=== PATIENT | female | born 1980 | race Caucasian/White ===

== ENCOUNTER 2022-03-07 10:12 | Outpatient (RCR) | payer MEDICARE, MEDICAID, SELFPAY ==
[2022-03-07 10:26] VITALS: BP 116/74; PULSE 108; TEMP 36.2; BMI 27.4
[2022-03-07 10:56] VITALS: BP 116/74; PULSE 108; TEMP 36.6; BMI 27.4
--- NOTE | 2022-03-07 12:04 | PCM.WC.HP ---
History of Present Illness Date of Service: 03/07/22 Chief Complaint: Follow-up right buttocks wound History of Wound: 42-year-old white female with spina bifida that has history of recurrent pressure ulcers and her ischial area of her buttocks. She has been seeing a surgeon and wound center up in [place] has recently moved to [place] and has become more patient. She has a 6/4 size full thickness ulcer on her right ischium area. No sign of infection skin is intact around wound does have some slough that is easily removed. She has just been doing moistened dressings to the area with a dry dressing over top. She is a type I diabetic on insulin. [facility] Medical History Spina bifida of lumbar spine Allergy/AdvReac Type Severity Reaction Status Date / Time Latex, Natural Rubber Allergy Hives Verified 03/07/22 11:00 ROS Constitutional Constitutional: Reports systems reviewed and no addt'l complaints, except as documented Eyes Eyes: Reports systems reviewed and no addt'l complaints, except as documented ENT HEENT: Reports systems reviewed and no addt'l complaints, except as documented Cardiovascular Cardiovascular: Reports systems reviewed and no addt'l complaints, except as documented Respiratory/Chest Respiratory/Chest: Reports systems reviewed and no addt'l complaints, except as documented Gastrointestinal Gastrointestinal: Reports systems reviewed and no addt'l complaints, except as documented Genitourinary Genitourinary: Reports systems reviewed and no addt'l complaints, except as documented Musculoskeletal Musculoskeletal: Reports systems reviewed and no addt'l complaints, except as documented Integumentary Integumentary: Reports skin ulcer and other Details: Right ischium open wound Neurologic Neurologic: Reports systems reviewed and no addt'l complaints, except as documented Psychiatric Psychiatric: Reports systems reviewed and no addt'l complaints, except as documented Endocrine Endocrinology: Reports systems reviewed and no addt'l complaints, except as documented Hematologic/Lymphatic Hematologic/Lymphatic: Reports systems reviewed and no addt'l complaints, except as documented Allergic/Immunologic Allergic/Immunologic: Reports systems reviewed and no addt'l complaints, except as documented Vital Signs Vital Signs Vital Signs: 03/07/22 10:26 03/07/22 10:56 Temperature 97.2 F L 97.9 F Temperature Source Temporal Temporal Pulse Rate 108 H 108 H Blood Pressure 116/74 116/74 Blood Pressure Mean 88 88 Blood Pressure Source Monitor Monitor Weight Weight: 90 lb Body Mass Index (BMI) 27.4 Physical Exam Const oriented x3 General Appearance: cooperative Exam Limitations: no limitations Resp normal respiratory effort Effort and Inspection: able to speak in complete sentences Auscultation: clear to auscultation bilaterally Cardio regular rate and regular rhythm Palpation: normal PMI Rate: regular rate Rhythm: regular rhythm GI Auscultation: normoactive bowel sounds Palpation: soft and no hepatosplenomegaly external exam normal Skin no rashes or lesions noted Neuro oriented x3 Psych Appearance: grossly normal Speech: normal speech Thought Content: normal thought content Judgement: judgement good Debridement Note Debridement Note Wound debrided: Right buttocks decubitus ulcer Wound Grade/Stage: Stage II Type of Debridement: Excisional debridement Anesthesia Used: 5% Lidocaine Gel Depth: Down to and including healthy tissue Percentage of wound debrided: 100 Instrument Used: 7mm curette Tissue Removed: Fibrin slough Severity: Fat Layer Exposed Amount of bleeding with debridement: Mild Bleeding Controlled with: Gel Foam Patient tolerated procedure: Patient tolerated procedure well Post-Debridement Measurements and Additional Note: Post-Debridement Measurements/Treatment - Nurse 1 - General Ulcer Assessment Start: 03/07/22 10:25 Freq: Status: Active Protocol: KRISTIN Activity Type Activity Date Activity User E-sign Co-sign Detail Recorded Client Recorded Date Recorded By Document 03/07/22 10:26 PL [id number] 03/07/22 11:02 PL Document 03/07/22 10:56 AK [id number] 03/07/22 10:59 AK 03/07/22 03/07/22 10:26 10:56 - Today's Visit Information Type of service Initial Visit Initial Visit Arrival Mode Wheelchair Wheelchair Transfer Assistance Other Transfer Assist (Other) self Patient Identification Verified (Name & Yes Yes ) Patient Requires Transmission-Based No Precautions Safety Precautions NA Height and Weight Height 4 ft 4 ft Weight 90 lb 90 lb Weight in Pounds 90.0 lbs 90.0 lbs Weight Measurement Method Estimated by Estimated by Patient Patient Body Mass Index (BMI) 27.4 27.4 BMI Classification Overweight Overweight BSA - Jimmy 1.13 1.13 Vital Signs Temperature (97.8 F-99.1 F) 97.2 F L 97.9 F Temperature Source Temporal Temporal Pulse Rate (60-100) 108 H 108 H Pulse Location Monitor Monitor Blood Pressure (90/60-120/80) 116/74 116/74 Blood Pressure Mean 88 88 Source Monitor Monitor History Since Last Visit- (Skip if this is Patient's initial visit) Left Footwear No Footwear Right Footwear No Footwear Pain Scale: 0-10 Numeric Is Patient Pain Free? Yes Yes WC - Nurse 1 - General Ulcer Measurement Start: 03/07/22 10:25 Freq: Status: Active Protocol: Activity Type Activity Date Activity User E-sign Co-sign Detail Recorded Client Recorded Date Recorded By Document 03/07/22 10:56 LA [id number] 03/07/22 10:59 AK 03/07/22 10:56 Wound Center Nurse 1 #1 R buttock -Combined with other wound No -Current Size (cm) - Length 1.5 -Current Size (cm) - Width 1.6 -Current Size (cm) - Depth 0.1 -Total Square Cm 2.40 -Photo Taken Yes -Tunneling No -Undermining/Tunneling No -Circular Undermining No -Change in Wound Grade/Stage No -Exudate Amt Medium -Exudate Type Serosanguineous -Wound Margin Distinct, Outline Attached -Granulation Amt Large (67-100%) -Granulation Quality [place] -Slough/Fibrin Yes -Necrosis Amt None Present (0 %) -Structure Exposed N/A -Texture (Cassandra-wound Skin Appearance) No Abnormality, Assessed -Moisture (Cassandra-wound Skin Appearance) No Abnormality, Assessed -Color (Cassandra-wound Skin Appearance) No Abnormality, Assessed -Temperature (Cassandra-wound Skin No Abnormality Appearance) (Pt Warm) -Tenderness on Palpation (Cassandra-wound No Skin Appearance) -Ulcer Cleansing Soap and Water -Foul Odor after Cleansing No -Anesthetic Used 4% Lidocaine Solution WC - Nurse 2 - General Ulcer CM Notes Start: 03/07/22 10:25 Freq: Status: Active Protocol: Activity Type Activity Date Activity User E-sign Co-sign Detail Recorded Client Recorded Date Recorded By Document 03/07/22 11:06 MW [id number] 03/07/22 11:07 MW 03/07/22 11:06 Wound Center Nurse 2 -Time 11:06 -Correct Patient Yes -Correct Side, Site, Position Yes -Correct Procedure Yes -Procedure Performed Yes -Type of Procedure Debridement -Clinical Debridement Subcutaneous -Tissue Removed Subcutaneous -Post Debridement (cm) - Length 2.2 -Post Debridement (cm) - Width 1.4 -Post Debridement (cm) - Depth 0.2 -Total Square (Post) (cm) 3.08 -Area of Debridement (cm) - Length 2.2 -Area of Debridement (cm) - Width 1.4 -Total Square (Area) (cm) 3.08 -Tunneling No -Undermining/Tunneling No -Circular Undermining No -Wound/Ulcer Outcome Not Healed -Ulcer Cleansing Rinsed/ Irrigated with Saline -Foul Odor after Cleansing No -Bioengineered Tissue No -Bleeding Controlled with Pressure -Treatment Response Procedure Tolerated Well -Offloading No -Debridement - Subq, 1st 20sq cm Yes Pain Scale: 0-10 Numeric Is Patient Pain Free? Yes - Nurse 3 - General Ulcer D/C NN Start: 03/07/22 10:25 Freq: Status: Active Protocol: Activity Type Activity Date Activity User E-sign Co-sign Detail Recorded Client Recorded Date Recorded By Document 03/07/22 11:40 AMRITA [id number] 03/07/22 11:41 AMRITA 03/07/22 11:40 Wound Care Nurse 3 #1 R buttock -Ulcer Cleansing Rinsed/ Irrigated with Saline -Foul Odor after Cleansing No -Negative Pressure Wound Therapy N/A -Primary Dressing Applied Mepilex Border, Promogran Silvana Matter -Mepilex Border 1 -Promogran Silvana Matter 1 Pain Scale: 0-10 Numeric Is Patient Pain Free? Yes WC - Visit Discharge Discharge Condition Stable Ambulatory Status Wheelchair Transportation Private Auto Accompanied by aid Medication Reconcilliation completed & Yes provided to patient/care provider Clinical Summary of Care Provided Yes Assessment/Plan Assessment/Plan (1) Nonhealing nonsurgical wound: CODE(S): T14.8XXA - Other injury of unspecified body region, initial encounter (2) Decubitus ulcer of right buttock, stage 2: CODE(S): L89.312 - Pressure ulcer of right buttock, stage 2 PLAN: Wash area with antibacterial soap and apply Silvana to area and foam dressing every day Follow-up in 1 week Offload is much as possible Eat high protein diet
== END 2022-03-10 23:59 | disposition home or self-care (01) ==
LOC: WC 10:12
PROVIDERS: PCP Internal Medicine; Visit Provider Nurse Practitioner
DX: L89.312 Pressure ulcer of right buttock, stage 2 (principal); E10.622 Type 1 diabetes mellitus with other skin ulcer; Q05.7 Lumbar spina bifida without hydrocephalus; Z79.4 Long term (current) use of insulin
CPT/HCPCS: 11042; 99203; G0463

== ENCOUNTER → 2022-03-27 | Outpatient (CLI) | payer MEDICARE, MEDICAID, SELFPAY ==
[2022-03-27 13:15] LABS: Hemoglobin A1c 7.8 % (3.8-5.6)
[2022-03-27 13:35] LABS: Prealbumin 7.8 mg/dL (20.0-40.0)
== END | disposition home or self-care (01) ==
LOC: LAB 12:06
PROVIDERS: PCP Internal Medicine; Referring Provider Nurse Practitioner; Visit Provider Nurse Practitioner
DX: E10.622 Type 1 diabetes mellitus with other skin ulcer (principal); L98.419 Non-pressure chronic ulcer of buttock with unspecified severity
CPT/HCPCS: 36415; 83036; 84134

== ENCOUNTER 2022-04-05 10:45 | Outpatient (RCR) | payer MEDICARE, MEDICAID, SELFPAY ==
[2022-03-11 00:40] VITALS: BP 116/74; PULSE 108; TEMP 36.6; BMI 27.4
[2022-03-21 10:22] VITALS: BP 117/63; PULSE 101; RESP 16; TEMP 36.3; BMI 27.4
--- NOTE | 2022-03-21 11:10 | PCM.WC.PN ---
History of Present Illness Date of Service: 03/21/22 Chief Complaint: Follow-up right buttocks wound History of Wound: 42-year-old white female with spina bifida that has history of recurrent pressure ulcers and her ischial area of her buttocks. She has been seeing a surgeon and wound center up in [place] has recently moved to [place] and has become more patient. She has a 6/4 size full thickness ulcer on her right ischium area. No sign of infection skin is intact around wound does have some slough that is easily removed. She has just been doing moistened dressings to the area with a dry dressing over top. She is a type I diabetic on insulin. Progress of Wound: Measurements are up showing smaller. Patient qualifies for epi fix. We will apply for that in the meantime she will continue same dressing changes no sign of infection no swelling or redness. Subjective Subjective Family is pleased with outcome so far Objective Data Objective Data Patient agreed to using epi fix for next week we will continue the same treatment for this day. No sign of infection no odor. We will add labs for the epi fix prealbumin and a A1c for her diabetes Vital Signs: Vital Signs Temp Pulse Resp BP O2 Del Method 97.4 F L 101 H 16 117/63 Room Air 03/21/22 10:22 03/21/22 10:22 03/21/22 10:22 03/21/22 10:22 03/21/22 10:22 Oxygen Delivery Method Room Air Weight: 90 lb Body Mass Index (BMI) 27.4 Lab / Micro Data Attestation: I reviewed the patient's lab results. Physical Exam Const oriented x3 General Appearance: cooperative Exam Limitations: no limitations Resp normal respiratory effort Effort and Inspection: able to speak in complete sentences Auscultation: clear to auscultation bilaterally Cardio regular rate and regular rhythm Palpation: normal PMI Rate: regular rate Rhythm: regular rhythm GI Auscultation: normoactive bowel sounds Palpation: soft and no hepatosplenomegaly external exam normal Skin no rashes or lesions noted Neuro oriented x3 Psych Appearance: grossly normal Speech: normal speech Thought Content: normal thought content Judgement: judgement good Debridement Note Debridement Note Wound debrided: Right ischium decubitus ulcer Wound Grade/Stage: Stage II Type of Debridement: Excisional debridement Anesthesia Used: 5% Lidocaine Gel Depth: in the subcutaneous layer Percentage of wound debrided: 100 Instrument Used: 5mm curette Tissue Removed: Fibrin Severity: Fat Layer Exposed Amount of bleeding with debridement: Mild Bleeding Controlled with: Compression and gauze Patient tolerated procedure: Patient tolerated procedure well Post-Debridement Measurements and Additional Note: Post-Debridement Measurements/Treatment - Nurse 1 - General Ulcer Assessment Start: 03/21/22 10:22 Freq: Status: Active Protocol: KRISTIN Activity Type Activity Date Activity User E-sign Co-sign Detail Recorded Client Recorded Date Recorded By Document 03/21/22 10:22 [facility] [id number] 03/21/22 10:28 [facility] 03/21/22 10:22 WC - Today's Visit Information Type of service Follow-up Visit (Physician/EMPLOYMENT APPEALS EXAMINER ) Arrival Mode Wheelchair Transfer Assistance None Patient Identification Verified (Name & Yes ) Patient Requires Transmission-Based No Precautions Height and Weight Body Mass Index (BMI) 27.4 BMI Classification Overweight Vital Signs Temperature (97.8 F-99.1 F) 97.4 F L Temperature Source Temporal Pulse Rate (60-100) 101 H Pulse Location Monitor Respiratory Rate (12-18) 16 Respiratory rate source Observation Oxygen Delivery Method Room Air Blood Pressure (90/60-120/80) 117/63 Blood Pressure Mean (mm Hg) 81 Source Monitor Position Sitting History Since Last Visit- (Skip if this is Patient's initial visit) Have you changed medications since your No last visit? Had a fall/change in ADL's that may No increase risk of falls Signs or symptoms of abuse and/or No neglect since last visit Have you been in the hospital since your No last visit? Has dressing in place as prescribed Yes Has compression in place as prescribed N/A Has offloadiing in place as prescribed N/A Experienced any changes in pain level or No management Left Footwear Regular Shoe Right Footwear Regular Shoe Pain Scale: 0-10 Numeric Is Patient Pain Free? Yes [facility] Nurse 1 - General Ulcer Measurement Start: 03/21/22 10:22 Freq: Status: Active Protocol: Activity Type Activity Date Activity User E-sign Co-sign Detail Recorded Client Recorded Date Recorded By Document 03/21/22 10:22 [facility] [id number] 03/21/22 10:28 [facility] 03/21/22 10:22 Wound Center Nurse 1 #1 R buttock -Combined with other wound No -Current Size (cm) - Length 2 -Current Size (cm) - Width 1.8 -Current Size (cm) - Depth 0.1 -Total Square Cm 3.6 -Date of Last Picture (Recall this 03/21/22 field) -Photo Taken Yes -Epithelialization Small 1-33% -Tunneling No -Undermining/Tunneling No -Circular Undermining No -Exudate Amt Medium -Exudate Type Serosanguineous -Wound Margin Flat & Intact -Granulation Amt Medium (34-66%) -Granulation Quality [place] -Necrosis Amt Medium (34-66%) -Necrotic Tissue Type Adherent Slough -Texture (Cassandra-wound Skin Appearance) Assessed, Scarring -Moisture (Cassandra-wound Skin Appearance) Assessed -Color (Cassandra-wound Skin Appearance) Assessed -Temperature (Cassandra-wound Skin No Abnormality Appearance) (Pt Warm) -Ulcer Cleansing Rinsed/ Irrigated with Saline -Foul Odor after Cleansing No -Anesthetic Used 5% Lidocaine Gel WC - Nurse 2 - General Ulcer CM Notes Start: 03/21/22 10:22 Freq: Status: Active Protocol: Activity Type Activity Date Activity User E-sign Co-sign Detail Recorded Client Recorded Date Recorded By Document 03/21/22 10:38 MW [id number] 03/21/22 10:42 MW 03/21/22 10:38 Wound Center Nurse 2 -Time 10:38 -Correct Patient Yes -Correct Side, Site, Position Yes -Correct Procedure Yes -Procedure Performed Yes -Type of Procedure Incision & Drainage -Clinical Debridement Subcutaneous -Tissue Removed Subcutaneous -Post Debridement (cm) - Length 2.0 -Post Debridement (cm) - Width 1.3 -Post Debridement (cm) - Depth 0.2 -Total Square (Post) (cm) 2.60 -Area of Debridement (cm) - Length 2.0 -Area of Debridement (cm) - Width 1.3 -Total Square (Area) (cm) 2.60 -Tunneling No -Undermining/Tunneling No -Circular Undermining No -Wound/Ulcer Outcome Not Healed -Ulcer Cleansing Rinsed/ Irrigated with Saline -Foul Odor after Cleansing No -Bioengineered Tissue No -Bleeding Controlled with Pressure -Treatment Response Procedure Tolerated Well -Offloading No -Debridement - Subq, 1st 20sq cm Yes Pain Scale: 0-10 Numeric Is Patient Pain Free? Yes Assessment/Plan Assessment/Plan (1) Nonhealing nonsurgical wound: CODE(S): T14.8XXA - Other injury of unspecified body region, initial encounter (2) Decubitus ulcer of right buttock, stage 2: CODE(S): L89.312 - Pressure ulcer of right buttock, stage 2 PLAN: Wash area with antibacterial soap and apply Silvana to area and foam dressing every day Follow-up in 1 week Offload is much as possible Eat high protein diet Applying for epi fix Prealbumin and A1c to be drawn
[2022-03-28 11:14] VITALS: BP 144/73; PULSE 114; TEMP 35.9; BMI 27.4
[2022-04-05 11:02] VITALS: BP 128/62; PULSE 111; RESP 20; TEMP 36.3; BMI 27.4
--- NOTE | 2022-04-05 12:59 | PCM.WC.HP ---
History of Present Illness Date of Service: 04/05/22 Chief Complaint: Follow-up right buttocks wound History of Wound: Ms. Walker is a very pleasant 42-year-old with a history of spina bifida who is being seen by me today as a courtesy. History of recurrent decubitus ulcers. Has been following up here for right buttock ulcer which opened up months ago. Prior to her initial visit here, had been following up at [facility] and had some point had a flap closure. Moved here to be closer with family. Has had 1 application of epi fix so far however unfortunately this did not stay on. History of insulin-dependent diabetes mellitus. She states that her blood readings are all over the place. She reports compliance with her medications. She feels well at this time and denies chills, fever, nausea, vomiting or change in bowel habit. [facility] Medical History (Updated 04/05/22 @ 17:[address] Cosmo Smith MD) Buttock wound Cancer Decubitus ulcer of right buttock, stage 3 High cholesterol Insulin dependent diabetes mellitus Spina bifida of lumbar spine Home Medications insulin aspart U-100 100 unit/mL subcutaneous solution (Novolog U-100 Insulin aspart) 1 sliding scale dose subcut USEASDIRECTD 03/13/22 [History Last Taken Unknown] insulin glargine 100 unit/mL subcutaneous cartridge 20 unit subcut QPM 03/13/22 [History Last Taken Unknown] Allergy/AdvReac Type Severity Reaction Status Date / Time Latex, Natural Rubber Allergy Hives Verified 03/13/22 14:04 Family History (Updated 03/13/22 @ 14:11 by Nanette Saravia) Other Cancer Diabetes FH: defects Social History (Updated 03/13/22 @ 14:10 by Nanette Saravia) Smoking Status: Never smoker alcohol intake: current alcohol intake frequency: holidays/special occasions only Alcohol type: wine ROS Constitutional Constitutional: Denies fatigue, fever(s), frequent falls, headache(s), increased appetite, lethargy or malaise Eyes Eyes: Denies change in eye color, change in vision, discharge from eye(s), dry eyes, excessive blinking or exophthalmos ENT HEENT: Denies hoarseness, lip swelling, loss taste/smell, mouth pain, mucositis, nasal congestion, nasal discharge, nasal obstruction or nasal trauma Cardiovascular Cardiovascular: Denies diaphoresis, dizziness, dyspnea, dyspnea at rest, dyspnea on exertion or erythema on extremities Respiratory/Chest Respiratory/Chest: Denies difficulty clearing secretions, dyspnea on exertion, excessive phlegm production, hemoptysis, hoarseness, inability to speak or mouth breathing Gastrointestinal Gastrointestinal: Denies chewing difficulty, cramping, dry heaves, dyspepsia, early satiety, excessive flatus or rectal bleeding Genitourinary Genitourinary: Denies flank pain, genital bruising, hematuria, itching, low back pain or oliguria Musculoskeletal Musculoskeletal: Reports difficulty walking; Denies extremity pain, joint swelling, neck pain, tingling or tremors Integumentary Integumentary: Reports skin ulcer; Denies non-healing lesions, photosensitivity, pruritus, rash, skin pain or skin swelling Neurologic Neurologic: Denies burning sensations, confusion, convulsions, disequilibrium, dizziness, focal weakness, frequent falls or headache(s) Psychiatric Psychiatric: Denies hallucinations, homicidal ideation, hopelessness, irritability, memory loss, suicidal thoughts, tactile hallucinations or visual hallucinations Endocrine Endocrinology: Denies excessive sweating, fatigue, flushing, heat intolerance, increase in ring/shoe/hat size, palpitations, polydipsia or polyphagia Allergic/Immunologic Allergic/Immunologic: Denies itchy eyes, lip swelling, seasonal rhinorrhea, throat swelling, eczemia or wheezing Vital Signs Vital Signs Vital Signs: 04/05/22 11:02 Temperature 97.3 F L Temperature Source Temporal Pulse Rate 111 H Respiratory Rate 20 H Blood Pressure 128/62 H Blood Pressure Mean 84 Blood Pressure Source Monitor Weight Weight: 90 lb Body Mass Index (BMI) 27.4 Physical Exam Const alert, oriented x3 and no apparent distress General Appearance: cooperative and well kempt HEENT normocephalic, head/scalp atraumatic and hearing grossly normal bilaterally Eyes General Eye: normal appearance of both eyes Neck full ROM and supple General: normal visual inspection Resp normal respiratory effort Effort and Inspection: able to speak in complete sentences Extremity no clubbing, cyanosis or edema Skin Wounds: wounds noted Neuro oriented x3 and CN's II-XII intact bilaterally Psych mental status grossly normal, thought process normal, cooperative and affect normal Appearance: grossly normal Debridement Note Debridement Note Wound debrided: Right Buttock Type of Debridement: Excisional debridement Anesthesia Used: 4% Lidocaine Solution Depth: Down to and including healthy tissue and in the subcutaneous layer Percentage of wound debrided: 100 Instrument Used: 5mm curette Tissue Removed: Slough and devitalized tissue Severity: Fat Layer Exposed Amount of bleeding with debridement: Mild Bleeding Controlled with: Pressure Patient tolerated procedure: Patient tolerated procedure well Post-Debridement Measurements and Additional Note: Post-Debridement Measurements/Treatment - Nurse 1 - General Ulcer Assessment Start: 03/21/22 10:22 Freq: Status: Active Protocol: KRISTIN Activity Type Activity Date Activity User E-sign Co-sign Detail Recorded Client Recorded Date Recorded By Document 03/21/22 10:22 [facility] [id number] 03/21/22 10:28 BM Document 03/28/22 11:14 AK [id number] 03/28/22 11:16 AK Document 04/05/22 11:02 DL [id number] 04/05/22 11:11 DL 03/21/22 03/28/22 04/05/22 10:22 11:14 11:02 - Today's Visit Information Type of service Follow-up Visit Follow-up Visit Follow-up Visit (Physician/ELECTROMECHANICAL EQUIPMENT ASSEMBLER (Physician/ELECTROMECHANICAL EQUIPMENT ASSEMBLER (Physician/ELECTROMECHANICAL EQUIPMENT ASSEMBLER ) ) ) Arrival Mode Wheelchair Wheelchair Wheelchair Transfer Assistance None None Transfer Assist (Other) x2 Patient Identification Verified (Name & Yes Yes Yes ) Patient Requires Transmission-Based No No No Precautions Finger Stick Blood Sugar(mg/dl) (if 400 indicated): Blood Sugar Stated by Patient Height and Weight Body Mass Index (BMI) 27.4 27.4 27.4 BMI Classification Overweight Overweight Overweight Vital Signs Temperature (97.8 F-99.1 F) 97.4 F L 96.7 F L 97.3 F L Temperature Source Temporal Temporal Temporal Pulse Rate (60-100) 101 H 114 H 111 H Pulse Location Monitor Monitor Monitor Respiratory Rate (12-18) 16 20 H Respiratory rate source Observation Observation Oxygen Delivery Method Room Air Blood Pressure (90/60-120/80) 117/63 144/73 H 128/62 H Blood Pressure Mean 81 96 84 Source Monitor Monitor Monitor Position Sitting History Since Last Visit- (Skip if this is Patient's initial visit) Have you changed medications since your No No No last visit? Any new allergies or adverse reactions No No Had a fall/change in ADL's that may No No No increase risk of falls Signs or symptoms of abuse and/or No No No neglect since last visit Have you been in the hospital since your No No No last visit? Has dressing in place as prescribed Yes Yes Yes Has compression in place as prescribed N/A N/A N/A Has offloadiing in place as prescribed N/A Yes Yes Experienced any changes in pain level or No No No management Left Footwear Regular Shoe Regular Shoe Right Footwear Regular Shoe Regular Shoe Pain Scale: 0-10 Numeric Is Patient Pain Free? Yes Yes Yes WC - Nurse 1 - General Ulcer Measurement Start: 03/21/22 10:22 Freq: Status: Active Protocol: Activity Type Activity Date Activity User E-sign Co-sign Detail Recorded Client Recorded Date Recorded By Document 03/21/22 10:22 [facility] [id number] 03/21/22 10:28 [facility] Document 03/28/22 11:14 AK [id number] 03/28/22 11:16 AK Document 04/05/22 11:02 DL [id number] 04/05/22 11:11 DL 03/21/22 03/28/22 04/05/22 10:22 11:14 11:02 Wound Center Nurse 1 #1 R buttock -Combined with other wound No No -Current Size (cm) - Length 2 1.5 3.2 -Current Size (cm) - Width 1.8 1.5 2 -Current Size (cm) - Depth 0.1 0.1 0.3 -Total Square Cm 3.6 2.25 6.4 -Date of Last Picture (Recall this 03/21/22 field) -Photo Taken Yes No No -Epithelialization Small 1-33% -Tunneling No No -Undermining/Tunneling No No -Circular Undermining No No -Change in Wound Grade/Stage No -Exudate Amt Medium Medium -Exudate Type Serosanguineous Serosanguineous Serosanguineous -Wound Margin Flat & Intact Distinct, Distinct, Outline Outline Attached Attached -Granulation Amt Medium (34-66%) Medium (34-66%) Small (1-33%) -Granulation Quality Milnor Milnor Milnor -Slough/Fibrin Yes -Necrosis Amt Medium (34-66%) Medium (34-66%) Large (67-100%) -Necrotic Tissue Type Adherent Slough Adherent Slough Adherent Slough -Structure Exposed N/A N/A -Texture (Cassandra-wound Skin Appearance) Assessed, No Abnormality, Scarring Scarring Assessed -Moisture (Cassandra-wound Skin Appearance) Assessed No Abnormality, No Abnormality Assessed -Color (Cassandra-wound Skin Appearance) Assessed No Abnormality, No Abnormality Assessed -Temperature (Cassandra-wound Skin No Abnormality No Abnormality No Abnormality Appearance) (Pt Warm) (Pt Warm) (Pt Warm) -Tenderness on Palpation (Cassandra-wound No No Skin Appearance) -Ulcer Cleansing Rinsed/ Rinsed/ Rinsed/ Irrigated with Irrigated with Irrigated with Saline Saline Saline -Foul Odor after Cleansing No No No -Anesthetic Used 5% Lidocaine 5% Lidocaine 5% Lidocaine Gel Gel Gel WC - Nurse 2 - General Ulcer CM Notes Start: 03/21/22 10:22 Freq: Status: Active Protocol: Activity Type Activity Date Activity User E-sign Co-sign Detail Recorded Client Recorded Date Recorded By Document 03/21/22 10:38 MW [id number] 03/21/22 10:42 MW Document 03/28/22 11:20 MW [id number] 03/28/22 11:33 MW Document 04/05/22 11:29 MW [id number] 04/05/22 11:43 MW 03/21/22 03/28/22 04/05/22 10:38 11:20 11:29 Wound Center Nurse 2 #1 R buttock -Time 10:38 11:21 11:30 -Correct Patient Yes Yes Yes -Correct Side, Site, Position Yes Yes Yes -Correct Procedure Yes Yes Yes -Procedure Performed Yes Yes Yes -Type of Procedure Debridement -Type of Procedure Incision & Debridement Drainage -Clinical Debridement Subcutaneous Subcutaneous Subcutaneous -Tissue Removed Subcutaneous Subcutaneous Subcutaneous -Post Debridement (cm) - Length 2.0 2.0 2.6 -Post Debridement (cm) - Width 1.3 2.0 2.0 -Post Debridement (cm) - Depth 0.2 0.2 0.2 -Total Square (Post) (cm) 2.60 4.00 5.20 -Area of Debridement (cm) - Length 2.0 2.0 2.6 -Area of Debridement (cm) - Width 1.3 2.0 2.0 -Total Square (Area) (cm) 2.60 4.00 5.20 -Tunneling No No No -Undermining/Tunneling No No No -Circular Undermining No No No -Wound/Ulcer Outcome Not Healed Not Healed Not Healed -Ulcer Cleansing Rinsed/ Rinsed/ Rinsed/ Irrigated with Irrigated with Irrigated with Saline Saline Saline -Foul Odor after Cleansing No No No -Bioengineered Tissue No Yes Yes -Type of Bioengineered Tissue Epifix -Type of Bioengineered Tissue Epifix -Expiration Date 11/09/26 11/09/26 -Product Lot Number [id number] -Percent Used 100 100 -Lot number of Saline Used [id number] -Bleeding Controlled with Pressure Pressure Pressure -Treatment Response Procedure Procedure Procedure Tolerated Well Tolerated Well Tolerated Well -Offloading No No No -Debridement - Subq, 1st 20sq cm Yes No No -Apply Skin Sub - 1st 25 sq cm - Legs 1 1 -Epifix (per sq cm) 4 4 Pain Scale: 0-10 Numeric Is Patient Pain Free? Yes Yes Yes - Nurse 3 - General Ulcer D/C NN Start: 03/21/22 10:22 Freq: Status: Active Protocol: Activity Type Activity Date Activity User E-sign Co-sign Detail Recorded Client Recorded Date Recorded By Document 03/21/22 11:10 CO [id number] 03/21/22 11:11 AK Document 03/28/22 11:54 MW [id number] 03/28/22 11:55 MW Document 04/05/22 11:56 [facility] [id number] 04/05/22 11:56 [facility] 03/21/22 03/28/22 04/05/22 11:10 11:54 11:56 Wound Care Center Nurse 3 #1 R buttock -Ulcer Cleansing Rinsed/ Not Cleansed Irrigated with Saline -Foul Odor after Cleansing No -Negative Pressure Wound Therapy N/A -Primary Dressing Applied Mepilex Border, Mepilex Border Promogran Silvana Matter -Other Dressing epifix, abd -Mepilex Border 1 1 -Promogran Silvana Matter 1 Treatment Response Procedure Tolerated Well Pain Scale: 0-10 Numeric Is Patient Pain Free? Yes Yes Yes Teaching: Wound Center Dressing Your Wound -Person Taught Patient -Teaching Method Discussion, Demonstration -Response to teaching Verbalize understanding WC - Visit Discharge Discharge Condition Stable Stable Stable Ambulatory Status Wheelchair Ambulatory Wheelchair Transportation Private Auto Private Auto Private Auto Accompanied by aid self 2 caregivers Medication Reconcilliation completed & Yes No provided to patient/care provider Clinical Summary of Care Provided Yes Yes Charges/Coding Visit Charges Office Visits / Consults: 66542 OV L3 New Procedures Integumentary 150xxx-152xx: [id number] Skin sub graft face/nk/hf/g Assessment/Plan Assessment/Plan (1) Decubitus ulcer of right buttock, stage 3: CODE(S): L89.313 - Pressure ulcer of right buttock, stage 3 (2) Insulin dependent diabetes mellitus: (3) Spina bifida of lumbar spine: CODE(S): Q05.7 - Lumbar spina bifida without hydrocephalus PLAN: Plan Debridement done as documented above, procedure was well-tolerated. Second application of epi fix done using 100% of product. Moistened with saline, covered with wound veil and secured with Steri-Strips. Promogran also applied. May change outer dressing if soiled or soaked. Continue increased protein intake, optimal diabetes control and offloading. Patient and caregiver voiced understanding. Their questions were answered and they were advised to call with any further questions or concerns. Follow-up as previously scheduled next Saturday. This note was generated with [employer] dictation software. It may contain incorrect words, spelling, and punctuation that were not noted in checking the note before signing.
== END 2022-04-10 23:59 | disposition home or self-care (01) ==
LOC: WC 10:45
PROVIDERS: PCP Internal Medicine; Visit Provider Nurse Practitioner
DX: L89.313 Pressure ulcer of right buttock, stage 3 (principal); E10.622 Type 1 diabetes mellitus with other skin ulcer; Q05.7 Lumbar spina bifida without hydrocephalus; Z79.4 Long term (current) use of insulin; E78.00 Pure hypercholesterolemia, unspecified
CPT/HCPCS: 11042; 15271; Q4186

== ENCOUNTER → 2022-04-16 | Outpatient (CLI) | payer MEDICARE, MEDICAID, SELFPAY ==
[2022-04-16 15:22] LABS: Absolute Lymphocyte Count 1.33 X10^3/uL (0.83-4.51); Absolute Neutrophil Count 15.3 X10^3/uL (2.0-7.7); Basophil# 0.07 X10^3/uL; Basophil% 0.4 % (0-1); Eosinophil# 0.09 X10^3/uL; Eosinophils% 0.5 % (0-5); Hematocrit 33.4 % (37-47); Hemoglobin 9.8 g/dL (12.0-15.0); Lymphocyte # 1.33 X10^3/ul (0.83-4.51); Lymphocyte % 7.2 % (19-41); Mean Corp Hgb Conc 29.3 g/dL (32-36); Mean Corpuscular Hgb 24.7 pg (27.0-32.0); Mean Corpuscular Volume 84.3 fL (81-99); Mean Platelet Vol. 9.3 fl (6.2-12.0); Monocyte% 7.6 % (0-10); NRBC Flagged by Analyzer 0 % (0-5); Neutrophil # 15.33 X10^3/uL (2.7-7.7); Neutrophil % 83.5 % (47-70); Platelet Count 412 K/mm3 (150-450); RBC Distribution Width CV 14.7 % (11.6-14.6); RBC Distribution Width SD 45.3 fl (35.1-43.9); Red Blood Count 3.96 M/mm3 (4.2-5.4); White Blood Count 18.4 K/mm3 (4.4-11.0)
[2022-04-16 15:49] LABS: ALB/GLOB Ratio 0.5 RATIO (0.9-2.4); AST(SGOT) 14 U/L (15-37); Alanine Aminotransfer ALT/SGPT 17 U/L (13-56); Albumin, Serum 2.6 g/dL (3.2-5.0); Alkaline Phosphatase 137 U/L (45-117); Anion Gap 7 (5-15); BUN 23 mg/dL (7-18); BUN/Creat Ratio 25.4 RATIO (10-20); Calcium,Total 9.1 mg/dL (8.5-10.1); Chloride 106 mmol/L (98-107); Cholesterol 160 mg/dL (200); EST Glomerular Filtration Rate 72 mL/min (>60); Est Glom Filt Rate - Afr Amer 87 mL/min (>60); Globulin 5.3 g/dL (2.2-4.2); Glucose 90 mg/dL (74-106); High Density Lipoprotein 32 mg/dL; Potassium 4.2 mmol/L (3.5-5.1); Protein, Total 7.9 g/dL (6.4-8.2); Sodium Level 140 mmol/L (136-145); T4 Free Direct 1.03 ng/dL (0.76-1.46); Thyroid Stim Hormone (TSH) 2.53 uIU/mL (0.358-3.74); Triglycerides 132 mg/dL; Very Low Density Lipoprotein 26 mg/dL (5-40)
== END | disposition home or self-care (01) ==
LOC: BIMLAB 13:54
PROVIDERS: PCP Internal Medicine; Referring Provider Internal Medicine; Visit Provider Internal Medicine
DX: E10.9 Type 1 diabetes mellitus without complications (principal)
CPT/HCPCS: 36415; 80053; 80061; 84439; 84443; 85025

== ENCOUNTER 2022-05-02 11:15 | Outpatient (RCR) | payer MEDICARE, MEDICAID, SELFPAY ==
[2022-04-11 00:37] VITALS: BP 128/62; PULSE 111; RESP 20; TEMP 36.3; BMI 27.4
[2022-04-11 11:09] VITALS: BP 118/54; PULSE 100; RESP 16; TEMP 35.9; BMI 27.4
--- NOTE | 2022-04-11 12:41 | PN.PCM_ITS ---
History of Present Illness Date of Service: 04/11/22 Chief Complaint: Follow-up right buttocks wound History of Wound: Ms. Walker is a very pleasant 42-year-old with a history of spina bifida with history of recurrent decubitus ulcers. Has been following up here for right buttock ulcer which opened up months ago. Prior to her initial visit here, had been following up at [place] and had some point had a flap closure. Moved here to be closer with family. Has had 1 application of epi fix so far however unfortunately this did not stay on. History of insulin- dependent diabetes mellitus. She states that her blood readings are all over the place. She reports compliance with her medications. She feels well at this time and denies chills, fever, nausea, vomiting or change in bowel habit. Progress of Wound: The wound is now moving it might be getting slightly bigger we used epi #3 and todd cultures before putting it on after debridement. We may need to go back to products and then use the epi fix at the very end for closure. It appears to be too close to the anus and she has no control of her bowels. The other one would be to put a rectal tube in her to control the stool from touching dressings. Subjective Subjective Patient is just worried that it can get worse and she is going to end up back in the hospital Objective Data Objective Data Again not sure if the EpiFix is the way to go at this point we will cultures were pending to see if she needs to be on antibiotics first which I cannot b elieve she will not be since she has stool right next to her wound site. Vital Signs: Vital Signs Temp Pulse Resp BP O2 Del Method 96.6 F L 100 16 118/54 L Room Air 04/11/22 11:09 04/11/22 11:09 04/11/22 11:09 04/11/22 11:09 04/11/22 11:09 Oxygen Delivery Method Room Air Weight: 90 lb Body Mass Index (BMI) 27.4 Lab / Micro Data Attestation: I reviewed the patient's lab results. Physical Exam Const oriented x3 General Appearance: cooperative Exam Limitations: no limitations Resp normal respiratory effort Effort and Inspection: able to speak in complete sentences Auscultation: clear to auscultation bilaterally Cardio regular rate and regular rhythm Palpation: normal PMI Rate: regular rate Rhythm: regular rhythm GI Auscultation: normoactive bowel sounds Palpation: soft and no hepatosplenomegaly external exam normal Skin no rashes or lesions noted Neuro oriented x3 Psych Appearance: grossly normal Speech: normal speech Thought Content: normal thought content Judgement: judgement good Debridement Note Debridement Note Wound debrided: Right buttocks decubitus ulcer Laterality: Right Wound Grade/Stage: Stage II Type of Debridement: Excisional debridement Anesthesia Used: 5% Lidocaine Gel Depth: in the subcutaneous layer Percentage of wound debrided: 100 Instrument Used: 5mm curette Tissue Removed: Fibrin and some slough Severity: Fat Layer Exposed Amount of bleeding with debridement: Mild Bleeding Controlled with: Compression and gauze Patient tolerated procedure: Patient tolerated procedure well Post-Debridement Measurements and Additional Note: Post-Debridement Measurements/Treatment - Nurse 1 - General Ulcer Assessment Start: 04/11/22 11:09 Freq: Status: Active Protocol: VIJAYA.JOVANY Activity Type Activity Date Activity User E-sign Co-sign Detail Recorded Client Recorded Date Recorded By Document 04/11/22 11:09 [facility] [id number] 04/11/22 11:15 [facility] 04/11/22 11:09 - Today's Visit Information Type of service Follow-up Visit (Physician/[employer] FRAME CARPENTER ) Arrival Mode Wheelchair Transfer Assistance Other Transfer Assist (Other) 1 Accompanied by caregivers Patient Identification Verified (Name & Yes ) Patient Requires Transmission-Based No Precautions Height and Weight Body Mass Index (BMI) 27.4 BMI Classification Overweight Vital Signs Temperature (97.8 F-99.1 F) 96.6 F L Temperature Source Temporal Pulse Rate (60-100) 100 Pulse Location Monitor Respiratory Rate (12-18) 16 Respiratory rate source Observation Oxygen Delivery Method Room Air Blood Pressure (90/60-120/80) 118/54 L Blood Pressure Mean (mm Hg) 75 Source Monitor Position Sitting Blood Pressure Location Left Arm History Since Last Visit- (Skip if this is Patient's initial visit) Have you changed medications since your No last visit? Any new allergies or adverse reactions No Had a fall/change in ADL's that may No increase risk of falls Signs or symptoms of abuse and/or No neglect since last visit Have you been in the hospital since your No last visit? Has dressing in place as prescribed Yes Has compression in place as prescribed N/A Has offloadiing in place as prescribed N/A Experienced any changes in pain level or No management Left Footwear Regular Shoe Right Footwear Regular Shoe Pain Scale: 0-10 Numeric Is Patient Pain Free? Yes - Nurse 1 - General Ulcer Measurement Start: 04/11/22 11:09 Freq: Status: Active Protocol: Activity Type Activity Date Activity User E-sign Co-sign Detail Recorded Client Recorded Date Recorded By Document 04/11/22 11:09 [facility] [id number] 04/11/22 11:15 [facility] 04/11/22 11:09 Wound Center Nurse 1 #1 R buttock -Combined with other wound No -Current Size (cm) - Length 2.5 -Current Size (cm) - Width 2 -Current Size (cm) - Depth 0.9 -Total Square Cm 5.0 -Date of Last Picture (Recall this 04/11/22 field) -Photo Taken Yes -Epithelialization None Present -Tunneling No -Undermining/Tunneling No -Exudate Amt Medium -Exudate Type Serosanguineous -Wound Margin Distinct, Outline Attached -Texture (Cassandra-wound Skin Appearance) Assessed, Scarring -Moisture (Cassandra-wound Skin Appearance) Assessed -Color (Cassandra-wound Skin Appearance) Assessed -Temperature (Cassandra-wound Skin No Abnormality Appearance) (Pt Warm) -Tenderness on Palpation (Cassandra-wound No Skin Appearance) -Ulcer Cleansing Soap and Water -Foul Odor after Cleansing No -Anesthetic Used 5% Lidocaine Gel - Nurse 2 - General Ulcer CM Notes Start: 04/11/22 11:09 Freq: Status: Active Protocol: Activity Type Activity Date Activity User E-sign Co-sign Detail Recorded Client Recorded Date Recorded By Document 04/11/22 11:23 [id number] 04/11/22 11:42 MW 04/11/22 11:23 Wound Center Nurse 2 -Time 11:37 -Correct Patient Yes -Correct Side, Site, Position Yes -Correct Procedure Yes -Procedure Performed Yes -Type of Procedure Debridement -Clinical Debridement Subcutaneous -Tissue Removed Subcutaneous -Post Debridement (cm) - Length 2.5 -Post Debridement (cm) - Width 3.3 -Post Debridement (cm) - Depth 0.3 -Total Square (Post) (cm) 8.25 -Area of Debridement (cm) - Length 2.5 -Area of Debridement (cm) - Width 3.3 -Total Square (Area) (cm) 8.25 -Tunneling No -Undermining/Tunneling No -Circular Undermining No -Wound/Ulcer Outcome Not Healed -Ulcer Cleansing Rinsed/ Irrigated with Saline -Foul Odor after Cleansing No -Bioengineered Tissue Yes -Type of Bioengineered Tissue Epifix Mesh -Expiration Date 12/09/26 -Product Lot Number [id number] -Percent Used 100 -Lot number of Saline Used [id number] -Bleeding Controlled with Pressure -Treatment Response Procedure Tolerated Well -Offloading No -Debridement - Subq, 1st 20sq cm No -Apply Skin Sub - 1st 25 sq cm - Legs 1 -Epifix Mesh (per sq cm) 11 Pain Scale: 0-10 Numeric Is Patient Pain Free? Yes - Nurse 3 - General Ulcer D/C NN Start: 04/11/22 11:09 Freq: Status: Active Protocol: Activity Type Activity Date Activity User E-sign Co-sign Detail Recorded Client Recorded Date Recorded By Document 04/11/22 11:42 MW [id number] 04/11/22 11:43 MW 04/11/22 11:42 Wound Care Center Nurse 3 #1 R buttock -Ulcer Cleansing Not Cleansed -Foul Odor after Cleansing No -Negative Pressure Wound Therapy N/A -Primary Dressing Applied Aquacel Extra -Other Covering ABD PAD -Aquacel Extra 1 Treatment Response Procedure Tolerated Well Pain Scale: 0-10 Numeric Is Patient Pain Free? Yes Teaching: Wound Center Offload: Mattress, Cushion, Reposition -Person Taught Patient,Primary Caregiver -Teaching Method Discussion -Response to teaching Verbalize understanding Dressing Your Wound -Person Taught Patient,Primary Caregiver -Teaching Method Discussion, Demonstration -Response to teaching Verbalize understanding WC - Visit Discharge Discharge Condition Stable Ambulatory Status Wheelchair Transportation Private Auto Accompanied by CAREGIVER Medication Reconcilliation completed & No provided to patient/care provider Clinical Summary of Care Provided Yes Assessment/Plan Assessment/Plan (1) Decubitus ulcer of right buttock, stage 3: CODE(S): L89.313 - Pressure ulcer of right buttock, stage 3 PLAN: Wound cultures obtained after debridement today then we applied EpiFix #3 to area with wound veil Steri-Strips Aquacel extra over top Medipore tape and then we applied ABD with more medical port tape to hold in place. Patient to follow-up with Dr. Guthrie next week and then I will be back the following week We will call patient with results of cultures (2) Insulin dependent diabetes mellitus: (3) Spina bifida of lumbar spine: CODE(S): Q05.7 - Lumbar spina bifida without hydrocephalus (4) Decubitus ulcer of right buttock, stage 2: CODE(S): L89.312 - Pressure ulcer of right buttock, stage 2 PLAN: Plan This note was generated with [employer] dictation software. It may contain incorrect words, spelling, and punctuation that were not noted in checking the note before signing.
[2022-04-19 11:10] VITALS: BP 109/56; PULSE 113; RESP 18; TEMP 36.9; BMI 27.4
--- NOTE | 2022-04-19 12:27 | PCM.WC.PN ---
History of Present Illness Date of Service: 04/19/22 Chief Complaint: Follow-up right buttocks wound History of Wound: Ms. Walker is a very pleasant 42-year-old with a history of spina bifida with history of recurrent decubitus ulcers. Has been following up here for right buttock ulcer which opened up months ago. Prior to her initial visit here, had been following up at [place] and had some point had a flap closure. Moved here to be closer with family. Has had 1 application of epi fix so far however unfortunately this did not stay on. History of insulin-dependent diabetes mellitus. She states that her blood readings are all over the place. She reports compliance with her medications. She feels well at this time and denies chills, fever, nausea, vomiting or change in bowel habit. Progress of Wound: Presents today with a new ulcer over the coccyx area. Said to have started out as a blister and subsequently opened up. Right buttock ulceration also with some worsening. Objective Data Objective Data Vital Signs: Vital Signs Temp Pulse Resp BP O2 Del Method 98.5 F 113 H 18 109/56 L Room Air 04/19/22 11:10 04/19/22 11:10 04/19/22 11:10 04/19/22 11:10 04/11/22 11:09 Oxygen Delivery Method Room Air Weight: 90 lb Body Mass Index (BMI) 27.4 Lab / Micro Data Micro: Microbiology 04/11/22 11:30 Wound Abcess - Buttock Gram Stain - Final 04/11/22 11:30 Wound Abcess - Buttock Wound Culture - Final Providencia rettgeri Pseudomonas aeroginosa Meth. resistant Staph. aureus 04/11/22 11:30 Wound Abcess - Buttock Anaerobic Culture - Final No anaerobic bacteria isolated. Charges/Coding Procedures Integumentary 111xxx-113xx: [id number] Annie subq tissue 20 sq cm/< Physical Exam Const alert, oriented x3 and no apparent distress General Appearance: cooperative and well kempt HEENT normocephalic, head/scalp atraumatic and hearing grossly normal bilaterally Eyes General Eye: normal appearance of both eyes Neck full ROM and supple General: normal visual inspection Resp normal respiratory effort Effort and Inspection: able to speak in complete sentences Extremity no clubbing, cyanosis or edema Skin Wounds: wounds noted Neuro oriented x3 and CN's II-XII intact bilaterally Psych mental status grossly normal, thought process normal, cooperative and affect normal Appearance: grossly normal Debridement Note Debridement Note Wound debrided: Right Buttock Type of Debridement: Excisional debridement Anesthesia Used: 4% Lidocaine Solution Depth: Down to and including healthy tissue and in the subcutaneous layer Percentage of wound debrided: 100 Instrument Used: 5mm curette Tissue Removed: Slough and devitalized tissue Severity: Fat Layer Exposed Amount of bleeding with debridement: Mild Bleeding Controlled with: Pressure Patient tolerated procedure: Patient tolerated procedure well Post-Debridement Measurements and Additional Note: Post-Debridement Measurements/Treatment - Nurse 1 - General Ulcer Assessment Start: 04/11/22 11:09 Freq: Status: Active Protocol: KRISTIN Activity Type Activity Date Activity User E-sign Co-sign Detail Recorded Client Recorded Date Recorded By Document 04/11/22 11:09 [facility] [id number] 04/11/22 11:15 [facility] Document 04/19/22 11:10 DL [id number] 04/19/22 11:25 DL 04/11/22 04/19/22 11:09 11:10 - Today's Visit Information Type of service Follow-up Visit Follow-up Visit (Physician/BAR TURNER (Physician/BAR TURNER ) ) Arrival Mode Wheelchair Wheelchair Transfer Assistance Other Transfer Assist (Other) 1 x1 Accompanied by caregivers Patient Identification Verified (Name & Yes Yes ) Patient Requires Transmission-Based No No Precautions Finger Stick Blood Sugar(mg/dl) (if 160 indicated): Blood Sugar Stated by Patient Height and Weight Body Mass Index (BMI) 27.4 27.4 BMI Classification Overweight Overweight Vital Signs Temperature (97.8 F-99.1 F) 96.6 F L 98.5 F Temperature Source Temporal Temporal Pulse Rate (60-100) 100 113 H Pulse Location Monitor Respiratory Rate (12-18) 16 18 Respiratory rate source Observation Observation Oxygen Delivery Method Room Air Blood Pressure (90/60-120/80) 118/54 L 109/56 L Blood Pressure Mean (mm Hg) 75 73 Source Monitor Position Sitting Blood Pressure Location Left Arm History Since Last Visit- (Skip if this is Patient's initial visit) Have you changed medications since your No No last visit? Any new allergies or adverse reactions No No Had a fall/change in ADL's that may No No increase risk of falls Signs or symptoms of abuse and/or No No neglect since last visit Have you been in the hospital since your No No last visit? Has dressing in place as prescribed Yes Yes Has compression in place as prescribed N/A Has offloadiing in place as prescribed N/A Yes Experienced any changes in pain level or No No management Left Footwear Regular Shoe Right Footwear Regular Shoe Pain Scale: 0-10 Numeric Is Patient Pain Free? Yes Yes WC - Nurse 1 - General Ulcer Measurement Start: 04/11/22 11:09 Freq: Status: Active Protocol: Activity Type Activity Date Activity User E-sign Co-sign Detail Recorded Client Recorded Date Recorded By Document 04/11/22 11:09 [facility] [id number] 04/11/22 11:15 BM Document 04/19/22 11:10 DL [id number] 04/19/22 11:25 DL 04/11/22 04/19/22 11:09 11:10 Wound Center Nurse 1 #2 sacral -Current Size (cm) - Length 1.9 -Current Size (cm) - Width 1 -Current Size (cm) - Depth 0.1 -Total Square Cm 1.9 -Photo Taken Yes -Exudate Amt Small -Exudate Type Serosanguineous -Wound Margin Distinct, Outline Attached -Granulation Amt None Present (0 %) -Necrosis Amt Large (67-100%) -Necrotic Tissue Type Adherent Slough -Structure Exposed N/A -Texture (Cassandra-wound Skin Appearance) Scarring -Moisture (Cassandra-wound Skin Appearance) No Abnormality -Color (Cassandra-wound Skin Appearance) No Abnormality -Temperature (Cassandra-wound Skin No Abnormality Appearance) (Pt Warm) -Ulcer Cleansing Soap and Water -Foul Odor after Cleansing No -Anesthetic Used 5% Lidocaine Gel #1 R buttock -Combined with other wound No -Current Size (cm) - Length 2.5 3.3 -Current Size (cm) - Width 2 2.4 -Current Size (cm) - Depth 0.9 1.3 -Total Square Cm 5.0 7.92 -Date of Last Picture (Recall this 04/11/22 field) -Photo Taken Yes Yes -Epithelialization None Present -Tunneling No -Undermining/Tunneling No -Exudate Amt Medium Medium -Exudate Type Serosanguineous Serosanguineous -Wound Margin Distinct, Distinct, Outline Outline Attached Attached -Granulation Amt Medium (34-66%) -Granulation Quality [place],Red -Necrosis Amt Medium (34-66%) -Necrotic Tissue Type Adherent Slough -Structure Exposed N/A -Texture (Cassandra-wound Skin Appearance) Assessed, Scarring Scarring -Moisture (Cassandra-wound Skin Appearance) Assessed No Abnormality -Color (Cassandra-wound Skin Appearance) Assessed No Abnormality -Temperature (Cassandra-wound Skin No Abnormality No Abnormality Appearance) (Pt Warm) (Pt Warm) -Tenderness on Palpation (Cassandra-wound No No Skin Appearance) -Ulcer Cleansing Soap and Water Soap and Water -Foul Odor after Cleansing No No -Anesthetic Used 5% Lidocaine 5% Lidocaine Gel Gel WC - Nurse 2 - General Ulcer CM Notes Start: 04/11/22 11:09 Freq: Status: Active Protocol: Activity Type Activity Date Activity User E-sign Co-sign Detail Recorded Client Recorded Date Recorded By Document 04/11/22 11:23 MW [id number] 04/11/22 11:42 MW Document 04/19/22 11:35 MW [id number] 04/19/22 11:44 MW 04/11/22 04/19/22 11:23 11:35 Wound Center Nurse 2 #2 sacral -Time 11:36 -Correct Patient Yes -Correct Side, Site, Position Yes -Correct Procedure Yes -Procedure Performed Yes -Type of Procedure Debridement -Clinical Debridement Subcutaneous -Tissue Removed Subcutaneous -Post Debridement (cm) - Length 2.5 -Post Debridement (cm) - Width 1.8 -Post Debridement (cm) - Depth 0.1 -Total Square (Post) (cm) 4.50 -Area of Debridement (cm) - Length 2.5 -Area of Debridement (cm) - Width 1.8 -Total Square (Area) (cm) 4.50 -Tunneling No -Undermining/Tunneling No -Circular Undermining No -Wound/Ulcer Outcome Not Healed -Ulcer Cleansing Rinsed/ Irrigated with Saline -Foul Odor after Cleansing No -Bioengineered Tissue No -Bleeding Controlled with Pressure -Treatment Response Procedure Tolerated Well -Offloading No -Debridement - Subq, 1st 20sq cm Yes #1 R buttock -Time 11:37 11:36 -Correct Patient Yes Yes -Correct Side, Site, Position Yes Yes -Correct Procedure Yes Yes -Procedure Performed Yes Yes -Type of Procedure Debridement Debridement -Clinical Debridement Subcutaneous Subcutaneous -Tissue Removed Subcutaneous Subcutaneous -Post Debridement (cm) - Length 2.5 3.2 -Post Debridement (cm) - Width 3.3 3.0 -Post Debridement (cm) - Depth 0.3 2.0 -Total Square (Post) (cm) 8.25 9.60 -Area of Debridement (cm) - Length 2.5 3.2 -Area of Debridement (cm) - Width 3.3 3.0 -Total Square (Area) (cm) 8.25 9.60 -Tunneling No No -Undermining/Tunneling No No -Circular Undermining No No -Wound/Ulcer Outcome Not Healed Not Healed -Ulcer Cleansing Rinsed/ Rinsed/ Irrigated with Irrigated with Saline Saline -Foul Odor after Cleansing No No -Bioengineered Tissue Yes No -Type of Bioengineered Tissue Epifix Mesh -Expiration Date 12/09/26 -Product Lot Number [id number] -Percent Used 100 -Lot number of Saline Used [id number] -Bleeding Controlled with Pressure Pressure -Treatment Response Procedure Procedure Tolerated Well Tolerated Well -Offloading No No -Debridement - Subq, 1st 20sq cm No No -Apply Skin Sub - 1st 25 sq cm - Legs 1 -Epifix Mesh (per sq cm) 11 Pain Scale: 0-10 Numeric Is Patient Pain Free? Yes Yes WC - Nurse 3 - General Ulcer D/C NN Start: 04/11/22 11:09 Freq: Status: Active Protocol: Activity Type Activity Date Activity User E-sign Co-sign Detail Recorded Client Recorded Date Recorded By Document 04/11/22 11:42 MW [id number] 04/11/22 11:43 MW Document 04/19/22 11:49 MW [id number] 04/19/22 12:07 MW 04/11/22 04/19/22 11:42 11:49 Wound Care Center Nurse 3 #2 sacral -Ulcer Cleansing Rinsed/ Irrigated with Saline -Foul Odor after Cleansing No -Negative Pressure Wound Therapy N/A -Primary Dressing Applied Aquacel Extra, Mepilex Border -Aquacel Extra 1 -Mepilex Border 1 #1 R buttock -Ulcer Cleansing Not Cleansed Rinsed/ Irrigated with Saline -Foul Odor after Cleansing No No -Negative Pressure Wound Therapy N/A N/A -Primary Dressing Applied Aquacel Extra Mepilex Border -Other Dressing aquacel extra -Other Covering ABD PAD -Aquacel Extra 1 -Mepilex Border 1 Treatment Response Procedure Procedure Tolerated Well Tolerated Well Pain Scale: 0-10 Numeric Is Patient Pain Free? Yes Yes Teaching: Wound Center Offload: Mattress, Cushion, Reposition -Person Taught Patient,Primary Caregiver -Teaching Method Discussion -Response to teaching Verbalize understanding Dressing Your Wound -Person Taught Patient,Primary Patient,Primary Caregiver Caregiver -Teaching Method Discussion, Discussion Demonstration -Response to teaching Verbalize Reinforcement understanding needed WC - Visit Discharge Discharge Condition Stable Stable Ambulatory Status Wheelchair Wheelchair Transportation Private Auto Private Auto Accompanied by CAREGIVER caregiver Medication Reconcilliation completed & No No provided to patient/care provider Clinical Summary of Care Provided Yes Yes Additional Wound Wound debrided: Coccyx Wound Grade/Stage: Stage II Type of Debridement: Excisional debridement Anesthesia Used: 4% Lidocaine Solution Depth: Down to and including healthy tissue Percentage of wound debrided: 100 Instrument Used: 5mm curette Tissue Removed: Devitalized tissue Severity: Fat Layer Exposed Amount of bleeding with debridement: Mild Bleeding Controlled with: Pressure Patient tolerated procedure: Patient tolerated procedure well Assessment/Plan Assessment/Plan (1) Decubitus ulcer of right buttock, stage 3: CODE(S): L89.313 - Pressure ulcer of right buttock, stage 3 (2) Decubitus ulcer of coccyx, stage 2: CODE(S): L89.152 - Pressure ulcer of sacral region, stage 2 (3) Type 1 diabetes mellitus: CODE(S): E10.9 - Type 1 diabetes mellitus without complications (4) Spina bifida of lumbar spine: CODE(S): Q05.7 - Lumbar spina bifida without hydrocephalus PLAN: Plan Debridement done as documented above, procedure was well-tolerated. New coccygeal ulcer, stage II. Worsening right buttock ulcer. Increased depth. Labs done earlier in the week with elevated white counts and cultures grew Meth resistant Staph aureus and Pseudomonas. Started on ciprofloxacin and doxycycline per culture and sensitivity. Due to worsening depth and increasing size to right buttock ulcer, switch to a wound VAC. Start at 125 mmHg and change every other day by home health. Offloading strongly recommended. Prior history of osteomyelitis, x-ray ordered to rule out pelvic bone involvement. Aquacel, Adaptic and foam dressing to coccyx ulcer. Change daily to twice daily. Optimal diabetes control discussed. Adequate protein intake also discussed. Her questions were answered and she was advised to call with any further questions or concerns. Follow-up with Asia Eng NP next week. This note was generated with [employer] dictation software. It may contain incorrect words, spelling, and punctuation that were not noted in checking the note before signing.
--- NOTE | 2022-04-19 12:40 | RAD_ITS ---
STUDY: X-RAY - PELVIS REASON FOR EXAM: Female, 42 years old. BUTTOCK ULCER TECHNIQUE: One view of the pelvis was obtained. COMPARISON: None. FINDINGS: Large amount of fecal material is in the rectum. Normal visualized soft tissue structures. Spina bifida. Normal bilateral iliac wings, sacroiliac joints and visualized sacrum. Normal visualized bilateral superior and inferior pubic rami. There are degenerative changes of the pubic symphysis with articular narrowing and sclerosis. Normal ischial tuberosities. Normal visualized right femoral head. Normal right acetabulum. Normal right hip joint. Normal visualized left femoral head. Normal left acetabulum. Normal left hip joint. RAD/Pelvis 1 or 2 Views IMPRESSION: No acute abnormality is seen. Electronically Signed: Brian Putnam MD at 14:54 EST ,
[2022-04-25 11:16] VITALS: BP 125/66; PULSE 107; RESP 16; BMI 27.4
--- NOTE | 2022-04-25 12:05 | PCM.WC.PN ---
History of Present Illness Date of Service: 04/25/22 Chief Complaint: Follow-up right buttocks wound History of Wound: Ms. Walker is a very pleasant 42-year-old with a history of spina bifida with history of recurrent decubitus ulcers. Has been following up here for right buttock ulcer which opened up months ago. Prior to her initial visit here, had been following up at [place] and had some point had a flap closure. Moved here to be closer with family. Has had 1 application of epi fix so far however unfortunately this did not stay on. History of insulin-dependent diabetes mellitus. She states that her blood readings are all over the place. She reports compliance with her medications. She feels well at this time and denies chills, fever, nausea, vomiting or change in bowel habit. Progress of Wound: Presents today with a new ulcer over the coccyx area that started as a blister from shearing. Said to have started out as a blister and subsequently opened up. Right buttock ulceration also with some worsening. Her lab work shows her poor prealbumin of like 10 and needs to be up before I think she can be ready for epi fix we are discontinuing epi fix at this time or going to a wound VAC. There is some problems with that also because she only gets 7 hours of help a day and her problem is at night sliding over to the toilet or sliding in and out of bed that is when the shearing is occurring with blisters. She is also in the process of changing counties from [facility] down to [facility] where she has moved to be near family and that we will change her waiver also. We will document that the patient does require at least 14 hours of care to help her with transfers from chair to bed and toilet to chair. Also helping her with nightly at bedtime care Subjective Subjective Patient is just upset that her wounds are worsening and that she is terribly afraid that she will have to have surgery again. She is frustrated with that she only gets 7 hours of help a day. She feels that she could use more help but needs to be okayed through waiver. Mother was here today to does look at all the wounds also she is not the caregiver patient is living independently right now. And she agrees it can be tough with the wound VAC about transfers. Objective Data Objective Data The wound is not really changed from last week but in previous weeks it is larger. The depth is better than what they got last week less slough wound looks very clean and beefy. Patient has been drinking her protein drinks. Patient is going to require at least 14 hours a day of wound care and care management to keep her from shearing and worsening the wounds. Patient is unable to take care of all this on her own 17 hours a day. Vital Signs: Vital Signs Temp Pulse Resp BP O2 Del Method 98.5 F 107 H 16 125/66 H Room Air 04/19/22 11:10 04/25/22 11:16 04/25/22 11:16 04/25/22 11:16 04/25/22 11:16 Oxygen Delivery Method Room Air Weight: 90 lb Body Mass Index (BMI) 27.4 Lab / Micro Data Attestation: I reviewed the patient's lab results. Micro: Microbiology 04/11/22 11:30 Wound Abcess - Buttock Gram Stain - Final 04/11/22 11:30 Wound Abcess - Buttock Wound Culture - Final Providencia rettgeri Pseudomonas aeroginosa Meth. resistant Staph. aureus 04/11/22 11:30 Wound Abcess - Buttock Anaerobic Culture - Final No anaerobic bacteria isolated. Physical Exam Const alert, oriented x3 and no apparent distress General Appearance: cooperative and well kempt HEENT normocephalic, head/scalp atraumatic and hearing grossly normal bilaterally Eyes General Eye: normal appearance of both eyes Neck full ROM and supple General: normal visual inspection Resp normal respiratory effort Effort and Inspection: able to speak in complete sentences Extremity no clubbing, cyanosis or edema Skin Wounds: wounds noted Neuro oriented x3 and CN's II-XII intact bilaterally Psych mental status grossly normal, thought process normal, cooperative and affect normal Appearance: grossly normal Debridement Note Debridement Note Wound debrided: Right buttocks decubitus ulcer Laterality: Right Wound Grade/Stage: Stage III Type of Debridement: Excisional debridement Anesthesia Used: 5% Lidocaine Gel Depth: in the subcutaneous layer Percentage of wound debrided: 100 Instrument Used: 7mm curette Tissue Removed: Fibrin Severity: Fat Layer Exposed Amount of bleeding with debridement: Mild Bleeding Controlled with: Compression and gauze Patient tolerated procedure: Patient tolerated procedure well Post-Debridement Measurements and Additional Note: Post-Debridement Measurements/Treatment WC - Nurse 1 - General Ulcer Assessment Start: 04/11/22 11:09 Freq: Status: Active Protocol: WC.LOWEXT Activity Type Activity Date Activity User E-sign Co-sign Detail Recorded Client Recorded Date Recorded By Document 04/11/22 11:09 [facility] [id number] 04/11/22 11:15 BMF Document 04/19/22 11:10 DL [id number] 04/19/22 11:25 DL Document 04/25/22 11:16 [facility] [id number] 04/25/22 11:28 BMF 04/11/22 04/19/22 04/25/22 11:09 11:10 11:16 WC - Today's Visit Information Type of service Follow-up Visit Follow-up Visit Follow-up Visit (Physician/SPIRAL WINDING MACHINE HELPER (Physician/SPIRAL WINDING MACHINE HELPER (Physician/SPIRAL WINDING MACHINE HELPER ) ) ) Arrival Mode Wheelchair Wheelchair Wheelchair Transfer Assistance Other Other Transfer Assist (Other) 1 x1 1 Accompanied by caregivers caregiver; mother Patient Identification Verified (Name & Yes Yes Yes ) Patient Requires Transmission-Based No No No Precautions Finger Stick Blood Sugar(mg/dl) (if 160 indicated): Blood Sugar Stated by Patient Height and Weight Body Mass Index (BMI) 27.4 27.4 27.4 BMI Classification Overweight Overweight Overweight Vital Signs Temperature (97.8 F-99.1 F) 96.6 F L 98.5 F Temperature Source Temporal Temporal Pulse Rate (60-100) 100 113 H 107 H Pulse Location Monitor Monitor Respiratory Rate (12-18) 16 18 16 Respiratory rate source Observation Observation Observation Oxygen Delivery Method Room Air Room Air Blood Pressure (90/60-120/80) 118/54 L 109/56 L 125/66 H Blood Pressure Mean (mm Hg) 75 73 85 Source Monitor Monitor Position Sitting Sitting Blood Pressure Location Left Arm History Since Last Visit- (Skip if this is Patient's initial visit) Have you changed medications since your No No No last visit? Any new allergies or adverse reactions No No No Had a fall/change in ADL's that may No No No increase risk of falls Signs or symptoms of abuse and/or No No No neglect since last visit Have you been in the hospital since your No No No last visit? Has dressing in place as prescribed Yes Yes Yes Has compression in place as prescribed N/A N/A Has offloadiing in place as prescribed N/A Yes Yes Experienced any changes in pain level or No No No management Left Footwear Regular Shoe Regular Shoe Right Footwear Regular Shoe Regular Shoe Pain Scale: 0-10 Numeric Is Patient Pain Free? Yes Yes Yes WC - Nurse 1 - General Ulcer Measurement Start: 04/11/22 11:09 Freq: Status: Active Protocol: Activity Type Activity Date Activity User E-sign Co-sign Detail Recorded Client Recorded Date Recorded By Document 04/11/22 11:09 [facility] [id number] 04/11/22 11:15 BM Document 04/19/22 11:10 DL [id number] 04/19/22 11:25 DL Document 04/25/22 11:16 [facility] [id number] 04/25/22 11:28 BMF 04/11/22 04/19/22 04/25/22 11:09 11:10 11:16 Wound Center Nurse 1 #3- rectal -Combined with other wound No -Date of Last Picture (Recall this 04/25/22 field) -Photo Taken Yes -Epithelialization None Present -Tunneling No -Undermining/Tunneling No -Circular Undermining No -Exudate Amt None Present -Wound Margin Distinct, Outline Attached -Granulation Amt Large (67-100%) -Granulation Quality Red -Slough/Fibrin No -Necrosis Amt None Present (0 %) -Texture (Cassandra-wound Skin Appearance) Assessed -Moisture (Cassandra-wound Skin Appearance) Assessed -Color (Cassandra-wound Skin Appearance) Assessed -Temperature (Cassandra-wound Skin No Abnormality Appearance) (Pt Warm) -Tenderness on Palpation (Cassandra-wound No Skin Appearance) -Ulcer Cleansing Soap and Water -Foul Odor after Cleansing No -Anesthetic Used 5% Lidocaine Gel #2 sacral -Combined with other wound No -Current Size (cm) - Length 1.9 2 -Current Size (cm) - Width 1 0.6 -Current Size (cm) - Depth 0.1 0.1 -Total Square Cm 1.9 1.2 -Date of Last Picture (Recall this 04/25/22 field) -Photo Taken Yes Yes -Epithelialization None Present -Tunneling No -Undermining/Tunneling No -Circular Undermining No -Exudate Amt Small Medium -Exudate Type Serosanguineous Serosanguineous -Wound Margin Distinct, Distinct, Outline Outline Attached Attached -Granulation Amt None Present (0 None Present (0 %) %) -Slough/Fibrin Yes -Necrosis Amt Large (67-100%) Large (67-100%) -Necrotic Tissue Type Adherent Slough Adherent Slough -Structure Exposed N/A -Texture (Cassandra-wound Skin Appearance) Scarring Assessed, Scarring -Moisture (Cassandra-wound Skin Appearance) No Abnormality Assessed -Color (Cassandra-wound Skin Appearance) No Abnormality Assessed, Erythema -Temperature (Cassandra-wound Skin No Abnormality No Abnormality Appearance) (Pt Warm) (Pt Warm) -Tenderness on Palpation (Cassandra-wound No Skin Appearance) -Ulcer Cleansing Soap and Water Soap and Water -Foul Odor after Cleansing No No -Anesthetic Used 5% Lidocaine 5% Lidocaine Gel Gel #1 R buttock -Combined with other wound No No -Current Size (cm) - Length 2.5 3.3 4 -Current Size (cm) - Width 2 2.4 2 -Current Size (cm) - Depth 0.9 1.3 1.4 -Total Square Cm 5.0 7.92 8 -Date of Last Picture (Recall this 04/11/22 04/25/22 field) -Photo Taken Yes Yes Yes -Epithelialization None Present None Present -Tunneling No No -Undermining/Tunneling No No -Circular Undermining No -Exudate Amt Medium Medium Medium -Exudate Type Serosanguineous Serosanguineous Serosanguineous -Wound Margin Distinct, Distinct, Distinct, Outline Outline Outline Attached Attached Attached -Granulation Amt Medium (34-66%) Large (67-100%) -Granulation Quality [place],Red Red -Slough/Fibrin Yes -Necrosis Amt Medium (34-66%) Small (1-33%) -Necrotic Tissue Type Adherent Slough Adherent Slough -Structure Exposed N/A -Texture (Cassandra-wound Skin Appearance) Assessed, Scarring Assessed, Scarring Scarring -Moisture (Cassandra-wound Skin Appearance) Assessed No Abnormality Assessed -Color (Cassandra-wound Skin Appearance) Assessed No Abnormality Assessed -Temperature (Cassandra-wound Skin No Abnormality No Abnormality No Abnormality Appearance) (Pt Warm) (Pt Warm) (Pt Warm) -Tenderness on Palpation (Cassandra-wound No No No Skin Appearance) -Ulcer Cleansing Soap and Water Soap and Water Soap and Water -Foul Odor after Cleansing No No No -Anesthetic Used 5% Lidocaine 5% Lidocaine 5% Lidocaine Gel Gel Gel WC - Nurse 2 - General Ulcer CM Notes Start: 04/11/22 11:09 Freq: Status: Active Protocol: Activity Type Activity Date Activity User E-sign Co-sign Detail Recorded Client Recorded Date Recorded By Document 04/11/22 11:23 MW [id number] 04/11/22 11:42 MW Document 04/19/22 11:35 MW [id number] 04/19/22 11:44 MW Document 04/25/22 11:36 MW [id number] 04/25/22 12:00 MW 04/11/22 04/19/22 04/25/22 11:23 11:35 11:36 Wound Center Nurse 2 #3- rectal -Time 11:37 -Correct Patient Yes -Correct Side, Site, Position Yes -Correct Procedure Yes -Procedure Performed Yes -Type of Procedure Debridement -Clinical Debridement Subcutaneous -Tissue Removed Subcutaneous -Post Debridement (cm) - Length 0.5 -Post Debridement (cm) - Width 1.0 -Post Debridement (cm) - Depth 0.2 -Total Square (Post) (cm) 0.50 -Area of Debridement (cm) - Length 0.5 -Area of Debridement (cm) - Width 1.0 -Total Square (Area) (cm) 0.50 -Tunneling No -Undermining/Tunneling No -Circular Undermining No -Wound/Ulcer Outcome Not Healed -Ulcer Cleansing Rinsed/ Irrigated with Saline -Foul Odor after Cleansing No -Bioengineered Tissue No -Bleeding Controlled with Pressure -Treatment Response Procedure Tolerated Well -Offloading No -Debridement - Subq, 1st 20sq cm No #2 sacral -Time 11:36 11:41 -Correct Patient Yes Yes -Correct Side, Site, Position Yes Yes -Correct Procedure Yes Yes -Procedure Performed Yes Yes -Type of Procedure Debridement Debridement -Clinical Debridement Subcutaneous Subcutaneous -Tissue Removed Subcutaneous Subcutaneous -Post Debridement (cm) - Length 2.5 4.0 -Post Debridement (cm) - Width 1.8 1.0 -Post Debridement (cm) - Depth 0.1 0.1 -Total Square (Post) (cm) 4.50 4.00 -Area of Debridement (cm) - Length 2.5 4.0 -Area of Debridement (cm) - Width 1.8 1.0 -Total Square (Area) (cm) 4.50 4.00 -Tunneling No No -Undermining/Tunneling No No -Circular Undermining No No -Wound/Ulcer Outcome Not Healed Not Healed -Ulcer Cleansing Rinsed/ Rinsed/ Irrigated with Irrigated with Saline Saline -Foul Odor after Cleansing No No -Bioengineered Tissue No No -Bleeding Controlled with Pressure Pressure -Treatment Response Procedure Procedure Tolerated Well Tolerated Well -Offloading No No -Debridement - Subq, 1st 20sq cm Yes No #1 R buttock -Time 11:37 11:36 11:39 -Correct Patient Yes Yes Yes -Correct Side, Site, Position Yes Yes Yes -Correct Procedure Yes Yes Yes -Procedure Performed Yes Yes Yes -Type of Procedure Debridement Debridement Debridement -Clinical Debridement Subcutaneous Subcutaneous Subcutaneous -Tissue Removed Subcutaneous Subcutaneous Subcutaneous -Post Debridement (cm) - Length 2.5 3.2 4.0 -Post Debridement (cm) - Width 3.3 3.0 3.0 -Post Debridement (cm) - Depth 0.3 2.0 1.0 -Total Square (Post) (cm) 8.25 9.60 12.00 -Area of Debridement (cm) - Length 2.5 3.2 4.0 -Area of Debridement (cm) - Width 3.3 3.0 3.0 -Total Square (Area) (cm) 8.25 9.60 12.00 -Tunneling No No No -Undermining/Tunneling No No No -Circular Undermining No No No -Wound/Ulcer Outcome Not Healed Not Healed Not Healed -Ulcer Cleansing Rinsed/ Rinsed/ Rinsed/ Irrigated with Irrigated with Irrigated with Saline Saline Saline -Foul Odor after Cleansing No No No -Bioengineered Tissue Yes No No -Type of Bioengineered Tissue Epifix Mesh -Expiration Date 12/09/26 -Product Lot Number [id number] -Percent Used 100 -Lot number of Saline Used [id number] -Bleeding Controlled with Pressure Pressure Pressure -Treatment Response Procedure Procedure Procedure Tolerated Well Tolerated Well Tolerated Well -Offloading No No No -Debridement - Subq, 1st 20sq cm No No Yes -Apply Skin Sub - 1st 25 sq cm - Legs 1 -Epifix Mesh (per sq cm) 11 Pain Scale: 0-10 Numeric Is Patient Pain Free? Yes Yes Yes WC - Nurse 3 - General Ulcer D/C NN Start: 04/11/22 11:09 Freq: Status: Active Protocol: Activity Type Activity Date Activity User E-sign Co-sign Detail Recorded Client Recorded Date Recorded By Document 04/11/22 11:42 MW [id number] 04/11/22 11:43 MW Document 04/19/22 11:49 MW [id number] 04/19/22 12:07 MW 04/11/22 04/19/22 11:42 11:49 Wound Care Center Nurse 3 #2 sacral -Ulcer Cleansing Rinsed/ Irrigated with Saline -Foul Odor after Cleansing No -Negative Pressure Wound Therapy N/A -Primary Dressing Applied Aquacel Extra, Mepilex Border -Aquacel Extra 1 -Mepilex Border 1 #1 R buttock -Ulcer Cleansing Not Cleansed Rinsed/ Irrigated with Saline -Foul Odor after Cleansing No No -Negative Pressure Wound Therapy N/A N/A -Primary Dressing Applied Aquacel Extra Mepilex Border -Other Dressing aquacel extra -Other Covering ABD PAD -Aquacel Extra 1 -Mepilex Border 1 Treatment Response Procedure Procedure Tolerated Well Tolerated Well Pain Scale: 0-10 Numeric Is Patient Pain Free? Yes Yes Teaching: Wound Center Offload: Mattress, Cushion, Reposition -Person Taught Patient,Primary Caregiver -Teaching Method Discussion -Response to teaching Verbalize understanding Dressing Your Wound -Person Taught Patient,Primary Patient,Primary Caregiver Caregiver -Teaching Method Discussion, Discussion Demonstration -Response to teaching Verbalize Reinforcement understanding needed WC - Visit Discharge Discharge Condition Stable Stable Ambulatory Status Wheelchair Wheelchair Transportation Private Auto Private Auto Accompanied by CAREGIVER caregiver Medication Reconcilliation completed & No No provided to patient/care provider Clinical Summary of Care Provided Yes Yes Assessment/Plan Assessment/Plan (1) Decubitus ulcer of right buttock, stage 3: CODE(S): L89.313 - Pressure ulcer of right buttock, stage 3 (2) Decubitus ulcer of coccyx, stage 2: CODE(S): L89.152 - Pressure ulcer of sacral region, stage 2 (3) Type 1 diabetes mellitus: CODE(S): E10.9 - Type 1 diabetes mellitus without complications (4) Spina bifida of lumbar spine: CODE(S): Q05.7 - Lumbar spina bifida without hydrocephalus PLAN: Plan Debridement done as documented above, procedure was well-tolerated. New coccygeal ulcer, stage II. Worsening right buttock ulcer. Increased depth. Labs done earlier in the week with elevated white counts and cultures grew Meth resistant Staph aureus and Pseudomonas. Started on ciprofloxacin and doxycycline per culture and sensitivity. Due to worsening depth and increasing size to right buttock ulcer, switch to a wound VAC. Start at 125 mmHg and change every other day by home health. Offloading strongly recommended. Prior history of osteomyelitis, x-ray ordered to rule out pelvic bone involvement. Aquacel, Adaptic and foam dressing to coccyx ulcer. Change daily to twice daily. Optimal diabetes control discussed. Adequate protein intake also discussed. Her questions were answered and she was advised to call with any further questions or concerns. Needs to meet again with waiver provider management to increase hours to 14 hours a day to help her with lift and bedtime care morning care included New area on rectum opening can apply Bactroban 3-4 times a day as needed during toiletry. This note was generated with [email or web address] dictation software. It may contain incorrect words, spelling, and punctuation that were not noted in checking the note before signing.
[2022-05-02 10:51] VITALS: BP 134/71; PULSE 111; RESP 16; TEMP 36.1; BMI 27.4
--- NOTE | 2022-05-02 12:43 | PCM.WC.PN ---
History of Present Illness Date of Service: 05/02/22 Chief Complaint: Follow-up right buttocks wound History of Wound: Ms. Walker is a very pleasant 42-year-old with a history of spina bifida with history of recurrent decubitus ulcers. Has been following up here for right buttock ulcer which opened up months ago. Prior to her initial visit here, had been following up at [place] and had some point had a flap closure. Moved here to be closer with family. Has had 1 application of epi fix so far however unfortunately this did not stay on. History of insulin-dependent diabetes mellitus. She states that her blood readings are all over the place. She reports compliance with her medications. She feels well at this time and denies chills, fever, nausea, vomiting or change in bowel habit. Progress of Wound: Presents today with a new ulcer over the coccyx area that started as a blister from shearing. Said to have started out as a blister and subsequently opened up. Right buttock ulceration also with some worsening. Her lab work shows her poor prealbumin of like 10 and needs to be up before I think she can be ready for epi fix we are discontinuing epi fix at this time or going to a wound VAC. There has been too many problems with the wound VAC therefore we are just continuing the wound VAC and going back to Aquacel extra to the ischium area. Patient has gotten lots of help now from home health care for during the day but still having incontinence at night that is just soaking through all the dressings. We will order a Ochoa catheter for the next 3 months and RN can come in and apply a [place] a coud? to CD can show the home health care. Care and positioning care. As for the blisters from the drape of the wound VAC since will be discontinued they are not open they are closed we will just use dry Aquacel covered to protect from opening or if opening to help absorb any moisture. Her anal opening is healing well with the Bactroban. Subjective Subjective Patient and family are very pleased with all the help she is getting from home health. Still has a hard time lifting her but we discussed about weight lifting and getting better strength in her upper body. Sister was here today and she said she used to be able to do that but has not been able to do that recently. And this is causing shearing on her buttocks and ripping off of med of the dressings Objective Data Objective Data Again the wounds do not look worse they are the same the ischium is still open positive depth but not any deeper no discharge no odor no redness. Too early to culture yet she just finished antibiotic therapy. Blisters that are on the skin of her upper thigh is from the drapes were covering with Aquacel plain and it looks like that will heal that closed in a week specially since were not using the wound VAC anymore. The anal opening sore is better it is doing very well with the Bactroban. Did order a Ochoa catheter to see ED #8 [place]ian coud? and we will order for PeriCare daily and change of catheter monthly for 3 months. Vital Signs: Vital Signs Temp Pulse Resp BP O2 Del Method 97.0 F L 111 H 16 134/71 H Room Air 05/02/22 10:51 05/02/22 10:51 05/02/22 10:51 05/02/22 10:51 05/02/22 10:51 Oxygen Delivery Method Room Air Weight: 90 lb Body Mass Index (BMI) 27.4 Lab / Micro Data Attestation: I reviewed the patient's lab results. Micro: Microbiology 04/11/22 11:30 Wound Abcess - Buttock Gram Stain - Final 04/11/22 11:30 Wound Abcess - Buttock Wound Culture - Final Providencia rettgeri Pseudomonas aeroginosa Meth. resistant Staph. aureus 04/11/22 11:30 Wound Abcess - Buttock Anaerobic Culture - Final No anaerobic bacteria isolated. Physical Exam Const alert, oriented x3 and no apparent distress General Appearance: cooperative and well kempt HEENT normocephalic, head/scalp atraumatic and hearing grossly normal bilaterally Eyes General Eye: normal appearance of both eyes Neck full ROM and supple General: normal visual inspection Resp normal respiratory effort Effort and Inspection: able to speak in complete sentences Extremity no clubbing, cyanosis or edema Skin Wounds: wounds noted Neuro oriented x3 and CN's II-XII intact bilaterally Psych mental status grossly normal, thought process normal, cooperative and affect normal Appearance: grossly normal Debridement Note Debridement Note Wound debrided: Right buttocks decubitus ulcer Laterality: Right Wound Grade/Stage: Stage IV Type of Debridement: Excisional debridement Anesthesia Used: 5% Lidocaine Gel Depth: in the subcutaneous layer Percentage of wound debrided: 100 Instrument Used: 7mm curette Tissue Removed: Fibrin Severity: Fat Layer Exposed Amount of bleeding with debridement: Mild Bleeding Controlled with: Compression and gauze Patient tolerated procedure: Patient tolerated procedure well Post-Debridement Measurements and Additional Note: Post-Debridement Measurements/Treatment - Nurse 1 - General Ulcer Assessment Start: 04/11/22 11:09 Freq: Status: Active Protocol: [email or web address] Activity Type Activity Date Activity User E-sign Co-sign Detail Recorded Client Recorded Date Recorded By Document 04/11/22 11:09 BM [id number] 04/11/22 11:15 BM Document 04/19/22 11:10 DL [id number] 04/19/22 11:25 DL Document 04/25/22 11:16 BM [id number] 04/25/22 11:28 BM Document 05/02/22 10:51 ML [id number] 05/02/22 11:09 ML 04/11/22 04/19/22 04/25/22 11:09 11:10 11:16 - Today's Visit Information Type of service Follow-up Visit Follow-up Visit Follow-up Visit (Physician/JANITOR CUSTODIAN (Physician/JANITOR CUSTODIAN (Physician/JANITOR CUSTODIAN ) ) ) Arrival Mode Wheelchair Wheelchair Wheelchair Transfer Assistance Other Other Transfer Assist (Other) 1 x1 1 Accompanied by caregivers caregiver; mother Patient Identification Verified (Name & Yes Yes Yes ) Patient Requires Transmission-Based No No No Precautions Safety Precautions Finger Stick Blood Sugar(mg/dl) (if 160 indicated): Blood Sugar Stated by Patient Height and Weight Body Mass Index (BMI) 27.4 27.4 27.4 BMI Classification Overweight Overweight Overweight Vital Signs Temperature (97.8 F-99.1 F) 96.6 F L 98.5 F Temperature Source Temporal Temporal Pulse Rate (60-100) 100 113 H 107 H Pulse Location Monitor Monitor Respiratory Rate (12-18) 16 18 16 Respiratory rate source Observation Observation Observation Oxygen Delivery Method Room Air Room Air Blood Pressure (90/60-120/80) 118/54 L 109/56 L 125/66 H Blood Pressure Mean (mm Hg) 75 73 85 Source Monitor Monitor Position Sitting Sitting Blood Pressure Location Left Arm History Since Last Visit- (Skip if this is Patient's initial visit) Have you changed medications since your No No No last visit? Any new allergies or adverse reactions No No No Had a fall/change in ADL's that may No No No increase risk of falls Signs or symptoms of abuse and/or No No No neglect since last visit Have you been in the hospital since your No No No last visit? Has dressing in place as prescribed Yes Yes Yes Has compression in place as prescribed N/A N/A Has offloadiing in place as prescribed N/A Yes Yes Experienced any changes in pain level or No No No management Left Footwear Regular Shoe Regular Shoe Right Footwear Regular Shoe Regular Shoe Pain Scale: 0-10 Numeric Is Patient Pain Free? Yes Yes Yes 05/02/22 10:51 WC - Today's Visit Information Type of service Follow-up Visit (Physician/JANITOR CUSTODIAN ) Arrival Mode Wheelchair Transfer Assistance None Transfer Assist (Other) Accompanied by Patient Identification Verified (Name & Yes ) Patient Requires Transmission-Based No Precautions Safety Precautions NA Finger Stick Blood Sugar(mg/dl) (if 119 indicated): Blood Sugar Stated by Patient Height and Weight Body Mass Index (BMI) 27.4 BMI Classification Overweight Vital Signs Temperature (97.8 F-99.1 F) 97.0 F L Temperature Source Temporal Pulse Rate (60-100) 111 H Pulse Location Monitor Respiratory Rate (12-18) 16 Respiratory rate source Observation Oxygen Delivery Method Room Air Blood Pressure (90/60-120/80) 134/71 H Blood Pressure Mean (mm Hg) 92 Source Monitor Position Sitting Blood Pressure Location Left Arm History Since Last Visit- (Skip if this is Patient's initial visit) Have you changed medications since your No last visit? Any new allergies or adverse reactions No Had a fall/change in ADL's that may No increase risk of falls Signs or symptoms of abuse and/or No neglect since last visit Have you been in the hospital since your No last visit? Has dressing in place as prescribed No Has compression in place as prescribed N/A Has offloadiing in place as prescribed N/A Experienced any changes in pain level or No management Left Footwear Right Footwear Pain Scale: 0-10 Numeric Is Patient Pain Free? Yes - Nurse 1 - General Ulcer Measurement Start: 04/11/22 11:09 Freq: Status: Active Protocol: Activity Type Activity Date Activity User E-sign Co-sign Detail Recorded Client Recorded Date Recorded By Document 04/11/22 11:09 BMF [id number] 04/11/22 11:15 BMF Document 04/19/22 11:10 DL [id number] 04/19/22 11:25 DL Document 04/25/22 11:16 BMF [id number] 04/25/22 11:28 BMF Document 05/02/22 10:51 ML [id number] 05/02/22 11:09 ML 04/11/22 04/19/22 04/25/22 11:09 11:10 11:16 Wound Center Nurse 1 #3- rectal -Combined with other wound No -Current Size (cm) - Length -Current Size (cm) - Width -Current Size (cm) - Depth -Total Square Cm -Date of Last Picture (Recall this 04/25/22 field) -Photo Taken Yes -Epithelialization None Present -Tunneling No -Undermining/Tunneling No -Circular Undermining No -Exudate Amt None Present -Exudate Type -Wound Margin Distinct, Outline Attached -Granulation Amt Large (67-100%) -Granulation Quality Red -Slough/Fibrin No -Necrosis Amt None Present (0 %) -Necrotic Tissue Type -Texture (Cassandra-wound Skin Appearance) Assessed -Moisture (Cassandra-wound Skin Appearance) Assessed -Color (Cassandra-wound Skin Appearance) Assessed -Temperature (Cassandra-wound Skin No Abnormality Appearance) (Pt Warm) -Tenderness on Palpation (Cassandra-wound No Skin Appearance) -Ulcer Cleansing Soap and Water -Foul Odor after Cleansing No -Anesthetic Used 5% Lidocaine Gel #2 sacral -Combined with other wound No -Current Size (cm) - Length 1.9 2 -Current Size (cm) - Width 1 0.6 -Current Size (cm) - Depth 0.1 0.1 -Total Square Cm 1.9 1.2 -Date of Last Picture (Recall this 04/25/22 field) -Photo Taken Yes Yes -Epithelialization None Present -Tunneling No -Undermining/Tunneling No -Circular Undermining No -Exudate Amt Small Medium -Exudate Type Serosanguineous Serosanguineous -Wound Margin Distinct, Distinct, Outline Outline Attached Attached -Granulation Amt None Present (0 None Present (0 %) %) -Slough/Fibrin Yes -Necrosis Amt Large (67-100%) Large (67-100%) -Necrotic Tissue Type Adherent Slough Adherent Slough -Structure Exposed N/A -Texture (Cassandra-wound Skin Appearance) Scarring Assessed, Scarring -Moisture (Cassandra-wound Skin Appearance) No Abnormality Assessed -Color (Cassandra-wound Skin Appearance) No Abnormality Assessed, Erythema -Temperature (Cassandra-wound Skin No Abnormality No Abnormality Appearance) (Pt Warm) (Pt Warm) -Tenderness on Palpation (Cassandra-wound No Skin Appearance) -Ulcer Cleansing Soap and Water Soap and Water -Foul Odor after Cleansing No No -Anesthetic Used 5% Lidocaine 5% Lidocaine Gel Gel #1 R buttock -Combined with other wound No No -Current Size (cm) - Length 2.5 3.3 4 -Current Size (cm) - Width 2 2.4 2 -Current Size (cm) - Depth 0.9 1.3 1.4 -Total Square Cm 5.0 7.92 8 -Date of Last Picture (Recall this 04/11/22 04/25/22 field) -Photo Taken Yes Yes Yes -Epithelialization None Present None Present -Tunneling No No -Undermining/Tunneling No No -Circular Undermining No -Exudate Amt Medium Medium Medium -Exudate Type Serosanguineous Serosanguineous Serosanguineous -Wound Margin Distinct, Distinct, Distinct, Outline Outline Outline Attached Attached Attached -Granulation Amt Medium (34-66%) Large (67-100%) -Granulation Quality [place],Red Red -Slough/Fibrin Yes -Necrosis Amt Medium (34-66%) Small (1-33%) -Necrotic Tissue Type Adherent Slough Adherent Slough -Structure Exposed N/A -Texture (Cassandra-wound Skin Appearance) Assessed, Scarring Assessed, Scarring Scarring -Moisture (Cassandra-wound Skin Appearance) Assessed No Abnormality Assessed -Color (Cassandra-wound Skin Appearance) Assessed No Abnormality Assessed -Temperature (Cassandra-wound Skin No Abnormality No Abnormality No Abnormality Appearance) (Pt Warm) (Pt Warm) (Pt Warm) -Tenderness on Palpation (Cassandra-wound No No No Skin Appearance) -Ulcer Cleansing Soap and Water Soap and Water Soap and Water -Foul Odor after Cleansing No No No -Anesthetic Used 5% Lidocaine 5% Lidocaine 5% Lidocaine Gel Gel Gel 05/02/22 10:51 Wound Center Nurse 1 #3- rectal -Combined with other wound -Current Size (cm) - Length 0.5 -Current Size (cm) - Width 0.5 -Current Size (cm) - Depth 0.2 -Total Square Cm 0.25 -Date of Last Picture (Recall this field) -Photo Taken -Epithelialization -Tunneling -Undermining/Tunneling -Circular Undermining -Exudate Amt Small -Exudate Type Serosanguineous -Wound Margin Distinct, Outline Attached -Granulation Amt None Present (0 %) -Granulation Quality -Slough/Fibrin Yes -Necrosis Amt None Present (0 %) -Necrotic Tissue Type Adherent Slough -Texture (Cassandra-wound Skin Appearance) Assessed -Moisture (Cassandra-wound Skin Appearance) Assessed -Color (Cassandra-wound Skin Appearance) Assessed -Temperature (Cassandra-wound Skin No Abnormality Appearance) (Pt Warm) -Tenderness on Palpation (Cassandra-wound No Skin Appearance) -Ulcer Cleansing Soap and Water -Foul Odor after Cleansing No -Anesthetic Used 5% Lidocaine Gel #2 sacral -Combined with other wound -Current Size (cm) - Length 2 -Current Size (cm) - Width 2.5 -Current Size (cm) - Depth 0.4 -Total Square Cm 5.0 -Date of Last Picture (Recall this field) -Photo Taken -Epithelialization -Tunneling -Undermining/Tunneling -Circular Undermining -Exudate Amt Small -Exudate Type Serosanguineous -Wound Margin Distinct, Outline Attached -Granulation Amt None Present (0 %) -Slough/Fibrin Yes -Necrosis Amt None Present (0 %) -Necrotic Tissue Type -Structure Exposed -Texture (Cassandra-wound Skin Appearance) Assessed -Moisture (Cassandra-wound Skin Appearance) Assessed -Color (Cassandra-wound Skin Appearance) Assessed -Temperature (Cassandra-wound Skin No Abnormality Appearance) (Pt Warm) -Tenderness on Palpation (Cassandra-wound No Skin Appearance) -Ulcer Cleansing Soap and Water -Foul Odor after Cleansing No -Anesthetic Used 5% Lidocaine Gel #1 R buttock -Combined with other wound -Current Size (cm) - Length 3 -Current Size (cm) - Width 4.5 -Current Size (cm) - Depth 0.4 -Total Square Cm 13.5 -Date of Last Picture (Recall this field) -Photo Taken -Epithelialization -Tunneling -Undermining/Tunneling -Circular Undermining -Exudate Amt Small -Exudate Type Serosanguineous -Wound Margin Distinct, Outline Attached -Granulation Amt None Present (0 %) -Granulation Quality -Slough/Fibrin Yes -Necrosis Amt None Present (0 %) -Necrotic Tissue Type Adherent Slough -Structure Exposed -Texture (Cassandra-wound Skin Appearance) Assessed -Moisture (Cassandra-wound Skin Appearance) Assessed -Color (Cassandra-wound Skin Appearance) Assessed -Temperature (Cassandra-wound Skin No Abnormality Appearance) (Pt Warm) -Tenderness on Palpation (Cassandra-wound No Skin Appearance) -Ulcer Cleansing Soap and Water -Foul Odor after Cleansing No -Anesthetic Used 5% Lidocaine Gel WC - Nurse 2 - General Ulcer CM Notes Start: 04/11/22 11:09 Freq: Status: Active Protocol: Activity Type Activity Date Activity User E-sign Co-sign Detail Recorded Client Recorded Date Recorded By Document 04/11/22 11:23 MW [id number] 04/11/22 11:42 MW Document 04/19/22 11:35 MW [id number] 04/19/22 11:44 MW Document 04/25/22 11:36 MW [id number] 04/25/22 12:00 MW Document 05/02/22 11:27 MW [id number] 05/02/22 11:39 MW 04/11/22 04/19/22 04/25/22 11:23 11:35 11:36 Wound Center Nurse 2 #3- rectal -Time 11:37 -Correct Patient Yes -Correct Side, Site, Position Yes -Correct Procedure Yes -Procedure Performed Yes -Type of Procedure Debridement -Clinical Debridement Subcutaneous -Tissue Removed Subcutaneous -Post Debridement (cm) - Length 0.5 -Post Debridement (cm) - Width 1.0 -Post Debridement (cm) - Depth 0.2 -Total Square (Post) (cm) 0.50 -Area of Debridement (cm) - Length 0.5 -Area of Debridement (cm) - Width 1.0 -Total Square (Area) (cm) 0.50 -Tunneling No -Undermining/Tunneling No -Circular Undermining No -Wound/Ulcer Outcome Not Healed -Ulcer Cleansing Rinsed/ Irrigated with Saline -Foul Odor after Cleansing No -Bioengineered Tissue No -Bleeding Controlled with Pressure -Treatment Response Procedure Tolerated Well -Offloading No -Debridement - Subq, 1st 20sq cm No #2 sacral -Time 11:36 11:41 -Correct Patient Yes Yes -Correct Side, Site, Position Yes Yes -Correct Procedure Yes Yes -Procedure Performed Yes Yes -Type of Procedure Debridement Debridement -Clinical Debridement Subcutaneous Subcutaneous -Tissue Removed Subcutaneous Subcutaneous -Post Debridement (cm) - Length 2.5 4.0 -Post Debridement (cm) - Width 1.8 1.0 -Post Debridement (cm) - Depth 0.1 0.1 -Total Square (Post) (cm) 4.50 4.00 -Area of Debridement (cm) - Length 2.5 4.0 -Area of Debridement (cm) - Width 1.8 1.0 -Total Square (Area) (cm) 4.50 4.00 -Tunneling No No -Undermining/Tunneling No No -Circular Undermining No No -Wound/Ulcer Outcome Not Healed Not Healed -Ulcer Cleansing Rinsed/ Rinsed/ Irrigated with Irrigated with Saline Saline -Foul Odor after Cleansing No No -Bioengineered Tissue No No -Bleeding Controlled with Pressure Pressure -Treatment Response Procedure Procedure Tolerated Well Tolerated Well -Offloading No No -Debridement - Subq, 1st 20sq cm Yes No #1 R buttock -Time 11:37 11:36 11:39 -Correct Patient Yes Yes Yes -Correct Side, Site, Position Yes Yes Yes -Correct Procedure Yes Yes Yes -Procedure Performed Yes Yes Yes -Type of Procedure Debridement Debridement Debridement -Clinical Debridement Subcutaneous Subcutaneous Subcutaneous -Tissue Removed Subcutaneous Subcutaneous Subcutaneous -Post Debridement (cm) - Length 2.5 3.2 4.0 -Post Debridement (cm) - Width 3.3 3.0 3.0 -Post Debridement (cm) - Depth 0.3 2.0 1.0 -Total Square (Post) (cm) 8.25 9.60 12.00 -Area of Debridement (cm) - Length 2.5 3.2 4.0 -Area of Debridement (cm) - Width 3.3 3.0 3.0 -Total Square (Area) (cm) 8.25 9.60 12.00 -Tunneling No No No -Undermining/Tunneling No No No -Circular Undermining No No No -Wound/Ulcer Outcome Not Healed Not Healed Not Healed -Ulcer Cleansing Rinsed/ Rinsed/ Rinsed/ Irrigated with Irrigated with Irrigated with Saline Saline Saline -Foul Odor after Cleansing No No No -Bioengineered Tissue Yes No No -Type of Bioengineered Tissue Epifix Mesh -Expiration Date 12/09/26 -Product Lot Number [id number] -Percent Used 100 -Lot number of Saline Used [id number] -Bleeding Controlled with Pressure Pressure Pressure -Treatment Response Procedure Procedure Procedure Tolerated Well Tolerated Well Tolerated Well -Offloading No No No -Debridement - Subq, 1st 20sq cm No No Yes -Apply Skin Sub - 1st 25 sq cm - Legs 1 -Epifix Mesh (per sq cm) 11 Pain Scale: 0-10 Numeric Is Patient Pain Free? Yes Yes Yes 05/02/22 11:27 Wound Center Nurse 2 #3- rectal -Time 11:28 -Correct Patient Yes -Correct Side, Site, Position Yes -Correct Procedure Yes -Procedure Performed No -Type of Procedure -Clinical Debridement -Tissue Removed -Post Debridement (cm) - Length 0.5 -Post Debridement (cm) - Width 0.5 -Post Debridement (cm) - Depth 0.2 -Total Square (Post) (cm) 0.25 -Area of Debridement (cm) - Length -Area of Debridement (cm) - Width -Total Square (Area) (cm) -Tunneling No -Undermining/Tunneling No -Circular Undermining No -Wound/Ulcer Outcome Not Healed -Ulcer Cleansing -Foul Odor after Cleansing -Bioengineered Tissue -Bleeding Controlled with Pressure -Treatment Response Procedure Tolerated Well -Offloading -Debridement - Subq, 1st 20sq cm #2 sacral -Time 11:29 -Correct Patient Yes -Correct Side, Site, Position Yes -Correct Procedure Yes -Procedure Performed No -Type of Procedure -Clinical Debridement -Tissue Removed -Post Debridement (cm) - Length 2.0 -Post Debridement (cm) - Width 2.5 -Post Debridement (cm) - Depth 0.4 -Total Square (Post) (cm) 5.00 -Area of Debridement (cm) - Length -Area of Debridement (cm) - Width -Total Square (Area) (cm) -Tunneling No -Undermining/Tunneling No -Circular Undermining No -Wound/Ulcer Outcome Not Healed -Ulcer Cleansing -Foul Odor after Cleansing -Bioengineered Tissue -Bleeding Controlled with -Treatment Response -Offloading -Debridement - Subq, 1st 20sq cm #1 R buttock -Time 11:30 -Correct Patient Yes -Correct Side, Site, Position Yes -Correct Procedure Yes -Procedure Performed Yes -Type of Procedure Debridement -Clinical Debridement Subcutaneous -Tissue Removed Subcutaneous -Post Debridement (cm) - Length 3.4 -Post Debridement (cm) - Width 2.5 -Post Debridement (cm) - Depth 1.0 -Total Square (Post) (cm) 8.50 -Area of Debridement (cm) - Length 3.4 -Area of Debridement (cm) - Width 2.5 -Total Square (Area) (cm) 8.50 -Tunneling No -Undermining/Tunneling No -Circular Undermining No -Wound/Ulcer Outcome Not Healed -Ulcer Cleansing Rinsed/ Irrigated with Saline -Foul Odor after Cleansing No -Bioengineered Tissue No -Type of Bioengineered Tissue -Expiration Date -Product Lot Number -Percent Used -Lot number of Saline Used -Bleeding Controlled with Pressure -Treatment Response Procedure Tolerated Well -Offloading No -Debridement - Subq, 1st 20sq cm No -Apply Skin Sub - 1st 25 sq cm - Legs -Epifix Mesh (per sq cm) Pain Scale: 0-10 Numeric Is Patient Pain Free? Yes - Nurse 3 - General Ulcer D/C NN Start: 04/11/22 11:09 Freq: Status: Active Protocol: Activity Type Activity Date Activity User E-sign Co-sign Detail Recorded Client Recorded Date Recorded By Document 04/11/22 11:42 MW [id number] 04/11/22 11:43 MW Document 04/19/22 11:49 MW [id number] 04/19/22 12:07 MW Document 04/25/22 12:31 BMF [id number] 04/25/22 12:33 BMF Document 05/02/22 11:55 BMF [id number] 05/02/22 11:57 BMF 04/11/22 04/19/22 04/25/22 11:42 11:49 12:31 Wound Care Center Nurse 3 #3- rectal -Ulcer Cleansing Rinsed/ Irrigated with Saline -Foul Odor after Cleansing No -Other Dressing mupirocin -Primary Dressing Covered/Secured with Dry Gauze, Secured with Tape #2 sacral -Ulcer Cleansing Rinsed/ Rinsed/ Irrigated with Irrigated with Saline Saline -Foul Odor after Cleansing No No -Negative Pressure Wound Therapy N/A -Primary Dressing Applied Aquacel Extra, Aquacel Extra, Mepilex Border Mepilex Border -Other Dressing -Primary Dressing Covered/Secured with -Other Covering -Aquacel Extra 1 1 -Mepilex Border 1 1 #1 R buttock -Ulcer Cleansing Not Cleansed Rinsed/ Rinsed/ Irrigated with Irrigated with Saline Saline -Foul Odor after Cleansing No No No -Negative Pressure Wound Therapy N/A N/A Start -Setting (mmHg) 125 -Negative Pressure is Continuous -Primary Dressing Applied Aquacel Extra Mepilex Border -Other Dressing aquacel extra -Primary Dressing Covered/Secured with -Other Covering ABD PAD -NPWT Application Charge NPWT & Debridement (nc ) -Aquacel Extra 1 -Aquacel AG 4x4 -Mepilex Border 1 Treatment Response Procedure Procedure Procedure Tolerated Well Tolerated Well Tolerated Well Pain Scale: 0-10 Numeric Is Patient Pain Free? Yes Yes Yes Teaching: Wound Center Offload: Mattress, Cushion, Reposition -Person Taught Patient,Primary Caregiver -Teaching Method Discussion -Response to teaching Verbalize understanding Dressing Your Wound -Person Taught Patient,Primary Patient,Primary Caregiver Caregiver -Teaching Method Discussion, Discussion Demonstration -Response to teaching Verbalize Reinforcement understanding needed WC - Visit Discharge Discharge Condition Stable Stable Stable Ambulatory Status Wheelchair Wheelchair Wheelchair Transportation Private Auto Private Auto Private Auto Accompanied by CAREGIVER caregiver mom and caregiver Medication Reconcilliation completed & No No provided to patient/care provider Clinical Summary of Care Provided Yes Yes Facility Type Home Health 05/02/22 11:55 [facility] Nurse 3 #3- rectal -Ulcer Cleansing Rinsed/ Irrigated with Saline -Foul Odor after Cleansing No -Other Dressing bactroban; drsg per ak manager strategy & account -Primary Dressing Covered/Secured with Dry Gauze, Secured with Tape #2 sacral -Ulcer Cleansing Rinsed/ Irrigated with Saline -Foul Odor after Cleansing No -Negative Pressure Wound Therapy -Primary Dressing Applied Aquacel Extra -Other Dressing abd -Primary Dressing Covered/Secured with Secured with Tape -Other Covering drsg per ak manager strategy & account -Aquacel Extra 1 -Mepilex Border #1 R buttock -Ulcer Cleansing Rinsed/ Irrigated with Saline -Foul Odor after Cleansing No -Negative Pressure Wound Therapy -Setting (mmHg) -Negative Pressure is -Primary Dressing Applied Aquacel AG 4x4 -Other Dressing abd; drsg per ak lp n -Primary Dressing Covered/Secured with Secured with Tape -Other Covering -NPWT Application Charge -Aquacel Extra -Aquacel AG 4x4 2 -Mepilex Border Treatment Response Procedure Tolerated Well Pain Scale: 0-10 Numeric Is Patient Pain Free? Yes Teaching: Wound Center Offload: Mattress, Cushion, Reposition -Person Taught -Teaching Method -Response to teaching Dressing Your Wound -Person Taught -Teaching Method -Response to teaching WC - Visit Discharge Discharge Condition Stable Ambulatory Status Wheelchair Transportation Private Auto Accompanied by 2 caregivers, sister Medication Reconcilliation completed & provided to patient/care provider Clinical Summary of Care Provided Facility Type Home Health Assessment/Plan Assessment/Plan (1) Decubitus ulcer of right buttock, stage 3: CODE(S): L89.313 - Pressure ulcer of right buttock, stage 3 (2) Decubitus ulcer of coccyx, stage 2: CODE(S): L89.152 - Pressure ulcer of sacral region, stage 2 (3) Type 1 diabetes mellitus: CODE(S): E10.9 - Type 1 diabetes mellitus without complications (4) Spina bifida of lumbar spine: CODE(S): Q05.7 - Lumbar spina bifida without hydrocephalus (5) Nonhealing nonsurgical wound: CODE(S): T14.8XXA - Other injury of unspecified body region, initial encounter (6) Decubitus ulcer of right buttock, stage 2: CODE(S): L89.312 - Pressure ulcer of right buttock, stage 2 PLAN: Wash area with antibacterial soap and apply Aquacel extra to area and foam dressing every day Follow-up in 1 week Offload is much as possible Eat high protein diet To the right upper thigh area blisters that are closed Aquacel plain to cover keep clean and dry Bactroban to anal area Ochoa catheter to see ED #8 [place] coud? apply monthly changes daily. [facility] daily Follow-up in 1 week
== END 2022-05-08 23:59 | disposition home or self-care (01) ==
LOC: WC 11:15
PROVIDERS: PCP Internal Medicine; Visit Provider Nurse Practitioner
DX: E11.622 Type 2 diabetes mellitus with other skin ulcer (principal); L89.313 Pressure ulcer of right buttock, stage 3; L89.312 Pressure ulcer of right buttock, stage 2; Q05.7 Lumbar spina bifida without hydrocephalus; Z79.4 Long term (current) use of insulin
CPT/HCPCS: 11042; 15271; 72170; 87070; 87075; 87077; 87186; 87205; Q4186

== ENCOUNTER 2022-05-30 10:45 | Outpatient (RCR) | payer MEDICARE, MEDICAID, SELFPAY ==
[2022-05-09 00:25] VITALS: BP 134/71; PULSE 111; RESP 16; TEMP 36.1; BMI 27.4
[2022-05-09 11:04] VITALS: BP 114/59; PULSE 113; RESP 16; TEMP 35.7; BMI 27.4
--- NOTE | 2022-05-09 11:47 | PCM.WC.PN ---
History of Present Illness Date of Service: 05/09/22 Chief Complaint: Follow-up right buttocks wound History of Wound: Ms. Walker is a very pleasant 42-year-old with a history of spina bifida with history of recurrent decubitus ulcers. Has been following up here for right buttock ulcer which opened up months ago. Prior to her initial visit here, had been following up at [facility] and had some point had a flap closure. Moved here to be closer with family. Has had 1 application of epi fix so far however unfortunately this did not stay on. History of insulin-dependent diabetes mellitus. She states that her blood readings are all over the place. She reports compliance with her medications. She feels well at this time and denies chills, fever, nausea, vomiting or change in bowel habit. Progress of Wound: Unfortunately a wound VAC did not stick either and we are back to regular dressings. So now it is imperative that patient get a Ochoa catheter to keep her dry so she is not recontaminating and wetting the dressings constantly. The wound today is has showing some maceration and is definitely not can heal unless we get a Ochoa catheter into her. The home health care is refusing to put the catheter in because they are not sure of the size even though it was ordered by me to put in a 8 or 10 Romanian catheter. Wound measurements are slightly smaller but macerated around the edges. Now patient has developed a left inner ankle heel blister. She has no feeling so she is not sure how that happened she has never had that happen before rather large blister that was full of fluid was debrided and we will start her on Xeroform dressings. Subjective Subjective Patient is upset with the blister she is upset with the Ochoa catheter. Objective Data Objective Data We will talk with home health care and have them bring the Ochoa catheter here we will insert here at the wound center. Vital Signs: Vital Signs Temp Pulse Resp BP O2 Del Method 96.3 F L 113 H 16 114/59 L Room Air 05/09/22 11:04 05/09/22 11:04 05/09/22 11:04 05/09/22 11:04 05/09/22 11:04 Oxygen Delivery Method Room Air Weight: 90 lb Body Mass Index (BMI) 27.4 Lab / Micro Data Attestation: I reviewed the patient's lab results. Physical Exam Const alert, oriented x3 and no apparent distress General Appearance: cooperative and well kempt HEENT normocephalic, head/scalp atraumatic and hearing grossly normal bilaterally Eyes General Eye: normal appearance of both eyes Neck full ROM and supple General: normal visual inspection Resp normal respiratory effort Effort and Inspection: able to speak in complete sentences Extremity no clubbing, cyanosis or edema Skin Wounds: wounds noted Neuro oriented x3 and CN's II-XII intact bilaterally Psych mental status grossly normal, thought process normal, cooperative and affect normal Appearance: grossly normal Debridement Note Debridement Note Wound debrided: Sacral wound No debridement was completed: No debridement was completed today Post-Debridement Measurements and Additional Note: Post-Debridement Measurements/Treatment - Nurse 1 - General Ulcer Assessment Start: 05/09/22 11:04 Freq: Status: Active Protocol: KRISTIN Activity Type Activity Date Activity User E-sign Co-sign Detail Recorded Client Recorded Date Recorded By Document 05/09/22 11:04 [facility] [id number] 05/09/22 11:23 [facility] 05/09/22 11:04 - Today's Visit Information Type of service Follow-up Visit (Physician/[employer] ) Arrival Mode Wheelchair Transfer Assistance Other Transfer Assist (Other) 2 Accompanied by 2 caregivers Patient Identification Verified (Name & Yes ) Patient Requires Transmission-Based No Precautions Height and Weight Body Mass Index (BMI) 27.4 BMI Classification Overweight Vital Signs Temperature (97.8 F-99.1 F) 96.3 F L Temperature Source Temporal Pulse Rate (60-100) 113 H Pulse Location Monitor Respiratory Rate (12-18) 16 Respiratory rate source Observation Oxygen Delivery Method Room Air Blood Pressure (90/60-120/80) 114/59 L Blood Pressure Mean (mm Hg) 77 Source Monitor Position Sitting Blood Pressure Location Right Arm History Since Last Visit- (Skip if this is Patient's initial visit) Have you changed medications since your No last visit? Any new allergies or adverse reactions No Had a fall/change in ADL's that may No increase risk of falls Signs or symptoms of abuse and/or No neglect since last visit Have you been in the hospital since your No last visit? Has dressing in place as prescribed Yes Has compression in place as prescribed N/A Has offloadiing in place as prescribed N/A Experienced any changes in pain level or No management Left Footwear Regular Shoe Right Footwear Regular Shoe Pain Scale: 0-10 Numeric Is Patient Pain Free? Yes WC - Nurse 1 - General Ulcer Measurement Start: 05/09/22 11:04 Freq: Status: Active Protocol: Activity Type Activity Date Activity User E-sign Co-sign Detail Recorded Client Recorded Date Recorded By Document 05/09/22 11:04 [facility] [id number] 05/09/22 11:23 [facility] 05/09/22 11:04 Wound Center Nurse 1 #3- rectal -Combined with other wound No -Current Size (cm) - Length 0.1 -Current Size (cm) - Width 0.1 -Current Size (cm) - Depth 0.1 -Total Square Cm 0.01 -Date of Last Picture (Recall this 05/09/22 field) -Photo Taken Yes -Epithelialization Large 67-100% -Texture (Cassandra-wound Skin Appearance) Assessed -Moisture (Cassandra-wound Skin Appearance) Assessed -Color (Cassandra-wound Skin Appearance) Assessed #2 sacral -Combined with other wound No -Current Size (cm) - Length 2.8 -Current Size (cm) - Width 0.5 -Current Size (cm) - Depth 0.1 -Total Square Cm 1.40 -Date of Last Picture (Recall this 05/09/22 field) -Photo Taken Yes -Epithelialization None Present -Tunneling No -Undermining/Tunneling No -Circular Undermining No -Exudate Amt Small -Exudate Type Serous -Wound Margin Distinct, Outline Attached -Granulation Amt None Present (0 %) -Slough/Fibrin Yes -Necrosis Amt Large (67-100%) -Necrotic Tissue Type Adherent Slough -Texture (Cassandra-wound Skin Appearance) Assessed, Scarring -Moisture (Cassandra-wound Skin Appearance) Assessed -Color (Cassandra-wound Skin Appearance) Assessed, Erythema -Temperature (Cassandra-wound Skin No Abnormality Appearance) (Pt Warm) -Tenderness on Palpation (Cassandra-wound No Skin Appearance) -Ulcer Cleansing Rinsed/ Irrigated with Saline -Foul Odor after Cleansing No -Anesthetic Used 4% Lidocaine Solution #1 R buttock -Combined with other wound No -Current Size (cm) - Length 2.7 -Current Size (cm) - Width 1.3 -Current Size (cm) - Depth 0.5 -Total Square Cm 3.51 -Date of Last Picture (Recall this 05/09/22 field) -Photo Taken Yes -Epithelialization None Present -Tunneling No -Undermining/Tunneling Yes -Undermining/Tunneling Starts (O'clock 3 ) -Undermining/Tunneling Ends (O'clock) 9 -Maximum Distance (cm) 0.6 -Circular Undermining No -Exudate Amt Medium -Exudate Type Serosanguineous -Wound Margin Distinct, Outline Attached -Granulation Amt Large (67-100%) -Granulation Quality [place] -Slough/Fibrin Yes -Necrosis Amt Small (1-33%) -Necrotic Tissue Type Adherent Slough -Texture (Cassandra-wound Skin Appearance) Assessed, Scarring -Moisture (Cassandra-wound Skin Appearance) Assessed -Color (Cassandra-wound Skin Appearance) Assessed -Temperature (Cassandra-wound Skin No Abnormality Appearance) (Pt Warm) -Tenderness on Palpation (Cassandra-wound No Skin Appearance) -Ulcer Cleansing Rinsed/ Irrigated with Saline -Foul Odor after Cleansing No -Anesthetic Used 4% Lidocaine Solution WC - Nurse 2 - General Ulcer CM Notes Start: 05/09/22 11:04 Freq: Status: Active Protocol: Activity Type Activity Date Activity User E-sign Co-sign Detail Recorded Client Recorded Date Recorded By Document 05/09/22 11:29 MW [id number] 05/09/22 11:43 MW 05/09/22 11:29 Wound Center Nurse 2 #3- rectal -Time 11:31 -Correct Patient Yes -Correct Side, Site, Position Yes -Correct Procedure Yes -Procedure Performed No -Post Debridement (cm) - Length 0 -Post Debridement (cm) - Width 0 -Total Square (Post) (cm) 0 -Wound/Ulcer Outcome Healed- Epithelialized #4 LEFT POSTERIOR ANKLE -Time 11:33 -Correct Patient Yes -Correct Side, Site, Position Yes -Correct Procedure Yes -Procedure Performed Yes -Type of Procedure Debridement -Clinical Debridement Subcutaneous -Tissue Removed Subcutaneous -Post Debridement (cm) - Length 3.5 -Post Debridement (cm) - Width 5.0 -Post Debridement (cm) - Depth 0.1 -Total Square (Post) (cm) 17.50 -Area of Debridement (cm) - Length 3.5 -Area of Debridement (cm) - Width 5.0 -Total Square (Area) (cm) 17.50 -Tunneling No -Undermining/Tunneling No -Circular Undermining No -Wound/Ulcer Outcome Not Healed -Ulcer Cleansing Rinsed/ Irrigated with Saline -Foul Odor after Cleansing No -Bioengineered Tissue No -Bleeding Controlled with Pressure -Treatment Response Procedure Tolerated Well -Offloading No -Debridement - Subq, 1st 20sq cm Yes -Debridement, SubQ, ea addt'l 20sq cm 1 or part thereof #2 sacral -Time 11:37 -Correct Patient Yes -Correct Side, Site, Position Yes -Correct Procedure Yes -Procedure Performed No -Post Debridement (cm) - Length 2.8 -Post Debridement (cm) - Width 0.5 -Post Debridement (cm) - Depth 0.1 -Total Square (Post) (cm) 1.40 -Tunneling No -Undermining/Tunneling No -Circular Undermining No -Wound/Ulcer Outcome Not Healed -Ulcer Cleansing Rinsed/ Irrigated with Saline -Foul Odor after Cleansing No -Bioengineered Tissue No -Bleeding Controlled with Pressure -Treatment Response Procedure Tolerated Well -Offloading No -Debridement - Subq, 1st 20sq cm No #1 R buttock -Time 11:37 -Correct Patient Yes -Correct Side, Site, Position Yes -Correct Procedure Yes -Procedure Performed Yes -Type of Procedure Debridement -Clinical Debridement Subcutaneous -Tissue Removed Subcutaneous -Post Debridement (cm) - Length 3.5 -Post Debridement (cm) - Width 2.0 -Post Debridement (cm) - Depth 0.9 -Total Square (Post) (cm) 7.00 -Area of Debridement (cm) - Length 3.5 -Area of Debridement (cm) - Width 2.0 -Total Square (Area) (cm) 7.00 -Tunneling No -Undermining/Tunneling No -Circular Undermining No -Wound/Ulcer Outcome Not Healed -Ulcer Cleansing Rinsed/ Irrigated with Saline -Foul Odor after Cleansing No -Bioengineered Tissue No -Bleeding Controlled with Pressure -Treatment Response Procedure Tolerated Well -Debridement - Subq, 1st 20sq cm No Pain Scale: 0-10 Numeric Is Patient Pain Free? Yes Additional Wound Wound debrided: Right buttocks decubitus ulcer Laterality: Right Wound Grade/Stage: Stage III Type of Debridement: Excisional debridement Anesthesia Used: 5% Lidocaine Gel Depth: Down to and including healthy tissue and in the subcutaneous layer Percentage of wound debrided: 100 Instrument Used: 7mm curette Tissue Removed: Fibrin Severity: Fat Layer Exposed Amount of bleeding with debridement: Mild Bleeding Controlled with: Compression and gauze Patient tolerated procedure: Patient tolerated procedure well Additional Wound Wound debrided: Left ankle heel blister Laterality: Left Type of Debridement: Excisional debridement Anesthesia Used: 5% Lidocaine Gel Depth: Down to and including healthy tissue Percentage of wound debrided: 100 Instrument Used: #15 blade and Forceps Tissue Removed: Fibrin devitalized tissue Amount of bleeding with debridement: Mild Bleeding Controlled with: Compression and gauze Patient tolerated procedure: Patient tolerated procedure well Assessment/Plan Assessment/Plan (1) Decubitus ulcer of right buttock, stage 3: CODE(S): L89.313 - Pressure ulcer of right buttock, stage 3 (2) Decubitus ulcer of coccyx, stage 2: CODE(S): L89.152 - Pressure ulcer of sacral region, stage 2 (3) Type 1 diabetes mellitus: CODE(S): E10.9 - Type 1 diabetes mellitus without complications (4) Spina bifida of lumbar spine: CODE(S): Q05.7 - Lumbar spina bifida without hydrocephalus (5) Nonhealing nonsurgical wound: CODE(S): T14.8XXA - Other injury of unspecified body region, initial encounter (6) Decubitus ulcer of right buttock, stage 2: CODE(S): L89.312 - Pressure ulcer of right buttock, stage 2 PLAN: Wash area with antibacterial soap and apply Aquacel extra to area and foam dressing every day Follow-up in 1 week Offload is much as possible Eat high protein diet To the right upper thigh area blisters that are closed Aquacel plain to cover keep clean and dry Aquacel extra to sacrum area dry Left heel ankle wound Xeroform with Adaptic and foam dressing over top Ochoa catheter to see ED #8 Romanian coud? apply monthly changes daily. [facility] daily still on hold till we can deal with home health care Follow-up in 1 week (7) Blister (nonthermal), left ankle, initial encounter: CODE(S): S90.522A - Blister (nonthermal), left ankle, initial encounter
[2022-05-16 10:25] VITALS: BP 113/63; PULSE 103; TEMP 36.2; BMI 27.4
--- NOTE | 2022-05-16 11:50 | PCM.WC.PN ---
History of Present Illness Date of Service: 05/16/22 Chief Complaint: Follow-up right buttocks wound History of Wound: Ms. Walker is a very pleasant 42-year-old with a history of spina bifida with history of recurrent decubitus ulcers. Has been following up here for right buttock ulcer which opened up months ago. Prior to her initial visit here, had been following up at [facility] and had some point had a flap closure. Moved here to be closer with family. Has had 1 application of epi fix so far however unfortunately this did not stay on. History of insulin-dependent diabetes mellitus. She states that her blood readings are all over the place. She reports compliance with her medications. She feels well at this time and denies chills, fever, nausea, vomiting or change in bowel habit. Progress of Wound: Unfortunately a wound VAC did not stick either and we are back to regular dressings. So now it is imperative that patient get a Ochoa catheter to keep her dry so she is not recontaminating and wetting the dressings constantly. After a Ochoa catheter was placed patient decided she had a latex allergy .so now she is supposedly cathing herself 4-5 times a day. The wound today is better and not macerated like it was last week. Wound measurements are slightly smaller The left inner ankle heel blister is already resolved using Xeroform dressing. So now we are back just to her buttocks dressing.. Subjective Subjective Patient is okay with all this happened Objective Data Objective Data We will continue to monitor and keep track of her I am going to increase wound dressing changes to twice daily just so maceration does not occur with her incontinence Vital Signs: Vital Signs Temp Pulse Resp BP O2 Del Method 97.2 F L 103 H 16 113/63 Room Air 05/16/22 10:25 05/16/22 10:25 05/09/22 11:04 05/16/22 10:25 05/09/22 11:04 Oxygen Delivery Method Room Air Weight: 90 lb Body Mass Index (BMI) 27.4 Lab / Micro Data Attestation: I reviewed the patient's lab results. Physical Exam Const alert, oriented x3 and no apparent distress General Appearance: cooperative and well kempt HEENT normocephalic, head/scalp atraumatic and hearing grossly normal bilaterally Eyes General Eye: normal appearance of both eyes Neck full ROM and supple General: normal visual inspection Resp normal respiratory effort Effort and Inspection: able to speak in complete sentences Extremity no clubbing, cyanosis or edema Skin Wounds: wounds noted Neuro oriented x3 and CN's II-XII intact bilaterally Psych mental status grossly normal, thought process normal, cooperative and affect normal Appearance: grossly normal Debridement Note Debridement Note Wound debrided: Decubitus ulcer coccyx Wound Grade/Stage: Stage III Type of Debridement: Excisional debridement Anesthesia Used: 5% Lidocaine Gel Depth: in the subcutaneous layer Percentage of wound debrided: 100 Instrument Used: 7mm curette Tissue Removed: Fibrin Amount of bleeding with debridement: None Bleeding Controlled with: Compression and gauze Patient tolerated procedure: Patient tolerated procedure well Post-Debridement Measurements and Additional Note: Post-Debridement Measurements/Treatment - Nurse 1 - General Ulcer Assessment Start: 05/09/22 11:04 Freq: Status: Active Protocol: KRISTIN Activity Type Activity Date Activity User E-sign Co-sign Detail Recorded Client Recorded Date Recorded By Document 05/09/22 11:04 [facility] [id number] 05/09/22 11:23 [facility] Document 05/16/22 10:25 [place] [id number] 05/16/22 10:29 [place] 05/09/22 05/16/22 11:04 10:25 - Today's Visit Information Type of service Follow-up Visit Follow-up Visit (Physician/PANTOGRAPH MACHINE OPERATOR (Physician/PANTOGRAPH MACHINE OPERATOR ) ) Arrival Mode Wheelchair Wheelchair Transfer Assistance Other Transfer Assist (Other) 2 Accompanied by 2 caregivers Patient Identification Verified (Name & Yes Yes ) Patient Requires Transmission-Based No No Precautions Safety Precautions NA Height and Weight Body Mass Index (BMI) 27.4 27.4 BMI Classification Overweight Overweight Vital Signs Temperature (97.8 F-99.1 F) 96.3 F L 97.2 F L Temperature Source Temporal Temporal Pulse Rate (60-100) 113 H 103 H Pulse Location Monitor Monitor Respiratory Rate (12-18) 16 Respiratory rate source Observation Oxygen Delivery Method Room Air Blood Pressure (90/60-120/80) 114/59 L 113/63 Blood Pressure Mean (mm Hg) 77 79 Source Monitor Monitor Position Sitting Blood Pressure Location Right Arm History Since Last Visit- (Skip if this is Patient's initial visit) Have you changed medications since your No No last visit? Any new allergies or adverse reactions No No Had a fall/change in ADL's that may No No increase risk of falls Signs or symptoms of abuse and/or No No neglect since last visit Have you been in the hospital since your No last visit? Has dressing in place as prescribed Yes Yes Has compression in place as prescribed N/A N/A Has offloadiing in place as prescribed N/A N/A Experienced any changes in pain level or No No management Left Footwear Regular Shoe Regular Shoe Right Footwear Regular Shoe Regular Shoe Pain Scale: 0-10 Numeric Is Patient Pain Free? Yes Yes WC - Nurse 1 - General Ulcer Measurement Start: 05/09/22 11:04 Freq: Status: Active Protocol: Activity Type Activity Date Activity User E-sign Co-sign Detail Recorded Client Recorded Date Recorded By Document 05/09/22 11:04 [facility] [id number] 05/09/22 11:23 [facility] Document 05/16/22 10:25 [place] [id number] 05/16/22 10:29 [place] 05/09/22 05/16/22 11:04 10:25 Wound Center Nurse 1 #4 LEFT POSTERIOR ANKLE -Combined with other wound No -Current Size (cm) - Length 0.1 -Current Size (cm) - Width 0.1 -Current Size (cm) - Depth 0.1 -Total Square Cm 0.01 -Date of Last Picture (Recall this 05/16/22 field) -Photo Taken Yes -Tunneling No -Undermining/Tunneling No -Change in Wound Grade/Stage No -Exudate Amt None Present -Wound Margin Distinct, Outline Attached -Granulation Amt None Present (0 %) -Granulation Quality N/A -Slough/Fibrin No -Necrosis Amt None Present (0 %) -Structure Exposed N/A -Texture (Cassandra-wound Skin Appearance) No Abnormality, Assessed -Moisture (Cassandra-wound Skin Appearance) No Abnormality, Assessed -Temperature (Cassandra-wound Skin No Abnormality Appearance) (Pt Warm) -Tenderness on Palpation (Cassandra-wound No Skin Appearance) -Ulcer Cleansing Rinsed/ Irrigated with Saline -Foul Odor after Cleansing No -Anesthetic Used 4% Lidocaine Solution #3- rectal -Combined with other wound No -Current Size (cm) - Length 0.1 -Current Size (cm) - Width 0.1 -Current Size (cm) - Depth 0.1 -Total Square Cm 0.01 -Date of Last Picture (Recall this 05/09/22 field) -Photo Taken Yes -Epithelialization Large 67-100% -Texture (Cassandra-wound Skin Appearance) Assessed -Moisture (Cassandra-wound Skin Appearance) Assessed -Color (Cassandra-wound Skin Appearance) Assessed #2 sacral -Combined with other wound No No -Current Size (cm) - Length 2.8 1.6 -Current Size (cm) - Width 0.5 0.6 -Current Size (cm) - Depth 0.1 0.2 -Total Square Cm 1.40 0.96 -Date of Last Picture (Recall this 05/09/22 05/16/22 field) -Photo Taken Yes Yes -Epithelialization None Present -Tunneling No No -Undermining/Tunneling No No -Circular Undermining No No -Change in Wound Grade/Stage No -Exudate Amt Small Medium -Exudate Type Serous Serosanguineous -Wound Margin Distinct, Distinct, Outline Outline Attached Attached -Granulation Amt None Present (0 None Present (0 %) %) -Granulation Quality N/A -Slough/Fibrin Yes Yes -Necrosis Amt Large (67-100%) Large (67-100%) -Necrotic Tissue Type Adherent Slough Adherent Slough -Structure Exposed N/A -Texture (Cassandra-wound Skin Appearance) Assessed, No Abnormality, Scarring Assessed -Moisture (Cassandra-wound Skin Appearance) Assessed Assessed,Dry/ Scaly -Color (Cassandra-wound Skin Appearance) Assessed, No Abnormality, Erythema Assessed -Temperature (Cassandra-wound Skin No Abnormality No Abnormality Appearance) (Pt Warm) (Pt Warm) -Tenderness on Palpation (Cassandra-wound No No Skin Appearance) -Ulcer Cleansing Rinsed/ Rinsed/ Irrigated with Irrigated with Saline Saline -Foul Odor after Cleansing No No -Anesthetic Used 4% Lidocaine 4% Lidocaine Solution Solution #1 R buttock -Combined with other wound No No -Current Size (cm) - Length 2.7 3 -Current Size (cm) - Width 1.3 2 -Current Size (cm) - Depth 0.5 0.9 -Total Square Cm 3.51 6 -Date of Last Picture (Recall this 05/09/22 05/16/22 field) -Photo Taken Yes Yes -Epithelialization None Present -Tunneling No No -Undermining/Tunneling Yes No -Undermining/Tunneling Starts (O'clock 3 ) -Undermining/Tunneling Ends (O'clock) 9 -Maximum Distance (cm) 0.6 -Circular Undermining No No -Change in Wound Grade/Stage No -Exudate Amt Medium Large -Exudate Type Serosanguineous Serosanguineous -Wound Margin Distinct, Distinct, Outline Outline Attached Attached -Granulation Amt Large (67-100%) Large (67-100%) -Granulation Quality [place] Red -Slough/Fibrin Yes Yes -Necrosis Amt Small (1-33%) Small (1-33%) -Necrotic Tissue Type Adherent Slough Adherent Slough -Structure Exposed N/A -Texture (Cassandra-wound Skin Appearance) Assessed, No Abnormality, Scarring Assessed -Moisture (Cassandra-wound Skin Appearance) Assessed No Abnormality, Assessed -Color (Cassandra-wound Skin Appearance) Assessed No Abnormality, Assessed -Temperature (Cassandra-wound Skin No Abnormality No Abnormality Appearance) (Pt Warm) (Pt Warm) -Tenderness on Palpation (Cassandra-wound No No Skin Appearance) -Ulcer Cleansing Rinsed/ Rinsed/ Irrigated with Irrigated with Saline Saline -Foul Odor after Cleansing No No -Anesthetic Used 4% Lidocaine 4% Lidocaine Solution Solution WC - Nurse 2 - General Ulcer CM Notes Start: 05/09/22 11:04 Freq: Status: Active Protocol: Activity Type Activity Date Activity User E-sign Co-sign Detail Recorded Client Recorded Date Recorded By Document 05/09/22 11:29 MW [id number] 05/09/22 11:43 MW Document 05/16/22 11:33 PL [id number] 05/16/22 11:37 PL 05/09/22 05/16/22 11:29 11:33 Wound Center Nurse 2 #4 LEFT POSTERIOR ANKLE -Time 11:33 -Correct Patient Yes -Correct Side, Site, Position Yes -Correct Procedure Yes -Procedure Performed Yes No -Type of Procedure Debridement -Clinical Debridement Subcutaneous -Tissue Removed Subcutaneous -Post Debridement (cm) - Length 3.5 -Post Debridement (cm) - Width 5.0 -Post Debridement (cm) - Depth 0.1 -Total Square (Post) (cm) 17.50 -Area of Debridement (cm) - Length 3.5 -Area of Debridement (cm) - Width 5.0 -Total Square (Area) (cm) 17.50 -Tunneling No -Undermining/Tunneling No -Circular Undermining No -Wound/Ulcer Outcome Not Healed Healed- Epithelialized -Ulcer Cleansing Rinsed/ Irrigated with Saline -Foul Odor after Cleansing No -Bioengineered Tissue No -Bleeding Controlled with Pressure -Treatment Response Procedure Tolerated Well -Offloading No -Debridement - Subq, 1st 20sq cm Yes -Debridement, SubQ, ea addt'l 20sq cm 1 or part thereof #3- rectal -Time 11:31 -Correct Patient Yes -Correct Side, Site, Position Yes -Correct Procedure Yes -Procedure Performed No -Post Debridement (cm) - Length 0 -Post Debridement (cm) - Width 0 -Total Square (Post) (cm) 0 -Wound/Ulcer Outcome Healed- Epithelialized #2 sacral -Time 11:37 -Correct Patient Yes -Correct Side, Site, Position Yes -Correct Procedure Yes -Procedure Performed No No -Post Debridement (cm) - Length 2.8 -Post Debridement (cm) - Width 0.5 -Post Debridement (cm) - Depth 0.1 -Total Square (Post) (cm) 1.40 -Tunneling No -Undermining/Tunneling No -Circular Undermining No -Wound/Ulcer Outcome Not Healed Healed- Epithelialized -Ulcer Cleansing Rinsed/ Irrigated with Saline -Foul Odor after Cleansing No -Bioengineered Tissue No -Bleeding Controlled with Pressure -Treatment Response Procedure Tolerated Well -Offloading No -Debridement - Subq, 1st 20sq cm No #1 R buttock -Time 11:37 10:35 -Correct Patient Yes Yes -Correct Side, Site, Position Yes Yes -Correct Procedure Yes Yes -Procedure Performed Yes Yes -Type of Procedure Debridement Debridement -Clinical Debridement Subcutaneous Subcutaneous -Tissue Removed Subcutaneous Subcutaneous -Post Debridement (cm) - Length 3.5 3.0 -Post Debridement (cm) - Width 2.0 2.0 -Post Debridement (cm) - Depth 0.9 0.5 -Total Square (Post) (cm) 7.00 6.00 -Area of Debridement (cm) - Length 3.5 3.0 -Area of Debridement (cm) - Width 2.0 2.0 -Total Square (Area) (cm) 7.00 6.00 -Tunneling No No -Undermining/Tunneling No No -Circular Undermining No No -Wound/Ulcer Outcome Not Healed Healed- Surgical Closure -Ulcer Cleansing Rinsed/ Irrigated with Saline -Foul Odor after Cleansing No No -Bioengineered Tissue No No -Bleeding Controlled with Pressure Pressure -Treatment Response Procedure Procedure Tolerated Well Tolerated Well -Debridement - Subq, 1st 20sq cm No Yes Pain Scale: 0-10 Numeric Is Patient Pain Free? Yes Yes - Nurse 3 - General Ulcer D/C NN Start: 05/09/22 11:04 Freq: Status: Active Protocol: Activity Type Activity Date Activity User E-sign Co-sign Detail Recorded Client Recorded Date Recorded By Document 05/09/22 11:48 ML [id number] 05/09/22 11:52 ML Document 05/16/22 10:51 [place] [id number] 05/16/22 10:53 [place] 05/09/22 05/16/22 11:48 10:51 Wound Care Center Nurse 3 #4 LEFT POSTERIOR ANKLE -Primary Dressing Applied Mepilex Border -Other Dressing xeroform, adaptic -Mepilex Border 1 #2 sacral -Ulcer Cleansing Rinsed/ Rinsed/ Irrigated with Irrigated with Saline Saline -Primary Dressing Applied Aquacel Extra, Aquacel AG 4x4, Mepilex Border Mepilex Border -Aquacel Extra 1 -Aquacel AG 4x4 1 -Mepilex Border 1 2 #1 R buttock -Ulcer Cleansing Rinsed/ Rinsed/ Irrigated with Irrigated with Saline Saline -Primary Dressing Applied Aquacel AG 4x4, Mepilex Border -Aquacel AG 4x4 1 -Mepilex Border 1 Pain Scale: 0-10 Numeric Is Patient Pain Free? Yes Yes WC - Visit Discharge Discharge Condition Stable Transportation Private Auto Accompanied by aid Medication Reconcilliation completed & Yes provided to patient/care provider Clinical Summary of Care Provided Yes Assessment/Plan Assessment/Plan (1) Decubitus ulcer of right buttock, stage 3: CODE(S): L89.313 - Pressure ulcer of right buttock, stage 3 (2) Decubitus ulcer of coccyx, stage 2: CODE(S): L89.152 - Pressure ulcer of sacral region, stage 2 (3) Type 1 diabetes mellitus: CODE(S): E10.9 - Type 1 diabetes mellitus without complications (4) Spina bifida of lumbar spine: CODE(S): Q05.7 - Lumbar spina bifida without hydrocephalus (5) Nonhealing nonsurgical wound: CODE(S): T14.8XXA - Other injury of unspecified body region, initial encounter (6) Decubitus ulcer of right buttock, stage 2: CODE(S): L89.312 - Pressure ulcer of right buttock, stage 2 PLAN: Wash area with antibacterial soap and apply Aquacel extra to area and foam dressing 2 times a day Follow-up in 1 week Offload is much as possible Eat high protein diet To the right upper thigh area blisters that are closed Aquacel plain to cover keep clean and dry Aquacel extra to sacrum area dry Straight cath 4-5 times a day as needed . [facility] daily still on hold till we can deal with home health care Follow-up in 1 week (7) Blister (nonthermal), left ankle, initial encounter: CODE(S): S90.522A - Blister (nonthermal), left ankle, initial encounter
[2022-05-23 10:34] VITALS: BP 114/49; PULSE 102; RESP 16; TEMP 36.2; BMI 27.4
--- NOTE | 2022-05-23 11:35 | PCM.WC.PN ---
History of Present Illness Date of Service: 05/23/22 Chief Complaint: Follow-up right buttocks wound History of Wound: Ms. Walker is a very pleasant 42-year-old with a history of spina bifida with history of recurrent decubitus ulcers. Has been following up here for right buttock ulcer which opened up months ago. Prior to her initial visit here, had been following up at [place] and had some point had a flap closure. Moved here to be closer with family. Has had 1 application of epi fix so far however unfortunately this did not stay on. History of insulin-dependent diabetes mellitus. She states that her blood readings are all over the place. She reports compliance with her medications. She feels well at this time and denies chills, fever, nausea, vomiting or change in bowel habit. Progress of Wound: Unfortunately a wound VAC did not stick either and we are back to regular dressings. So now it is imperative that patient get a Ochoa catheter to keep her dry so she is not recontaminating and wetting the dressings constantly. After a Ochoa catheter was placed patient decided she had a latex allergy .so now she is supposedly cathing herself 4-5 times a day. The wound today is better and not macerated like it was last week. Wound measurements are the same from last week The left inner ankle heel blister is already resolved using Xeroform dressing. Now she has developed a blister on the right lateral leg. Blister is open we will they have already started using the Xeroform dressings which is healing well Subjective Subjective Patient does not tell everything unless you ask and likely home health is telling us about the new wounds. Objective Data Objective Data Buttocks wounds is improving with adherence on the one end of the wound it looks like the skin is not have the undermining like it was I think it helps to have dressings done twice a day to keep a closer eye on it. Vital Signs: Vital Signs Temp Pulse Resp BP O2 Del Method 97.2 F L 102 H 16 114/49 L Room Air 05/23/22 10:34 05/23/22 10:34 05/23/22 10:34 05/23/22 10:34 05/09/22 11:04 Oxygen Delivery Method Room Air Weight: 90 lb Body Mass Index (BMI) 27.4 Physical Exam Const alert, oriented x3 and no apparent distress General Appearance: cooperative and well kempt HEENT normocephalic, head/scalp atraumatic and hearing grossly normal bilaterally Eyes General Eye: normal appearance of both eyes Neck full ROM and supple General: normal visual inspection Resp normal respiratory effort Effort and Inspection: able to speak in complete sentences Extremity no clubbing, cyanosis or edema Skin Wounds: wounds noted Neuro oriented x3 and CN's II-XII intact bilaterally Psych mental status grossly normal, thought process normal, cooperative and affect normal Appearance: grossly normal Debridement Note Debridement Note Wound debrided: Decubitus ulcer coccyx Wound Grade/Stage: Stage III Type of Debridement: Excisional debridement Anesthesia Used: 5% Lidocaine Gel Depth: in the subcutaneous layer Percentage of wound debrided: 100 Instrument Used: 7mm curette Tissue Removed: Fibrin Severity: Fat Layer Exposed Amount of bleeding with debridement: Mild Bleeding Controlled with: Compression and gauze Patient tolerated procedure: Patient tolerated procedure well Post-Debridement Measurements and Additional Note: Post-Debridement Measurements/Treatment - Nurse 1 - General Ulcer Assessment Start: 05/09/22 11:04 Freq: Status: Active Protocol: KRISTIN Activity Type Activity Date Activity User E-sign Co-sign Detail Recorded Client Recorded Date Recorded By Document 05/09/22 11:04 [facility] [id number] 05/09/22 11:23 [facility] Document 05/16/22 10:25 [place] [id number] 05/16/22 10:29 [place] Document 05/23/22 10:34 ML [id number] 05/23/22 10:46 ML 05/09/22 05/16/22 05/23/22 11:04 10:25 10:34 - Today's Visit Information Type of service Follow-up Visit Follow-up Visit Follow-up Visit (Physician/EQUIPMENT OPERATING ENGINEER (Physician/EQUIPMENT OPERATING ENGINEER (Physician/EQUIPMENT OPERATING ENGINEER ) ) ) Arrival Mode Wheelchair Wheelchair Wheelchair Transfer Assistance Other None Transfer Assist (Other) 2 Accompanied by 2 caregivers Patient Identification Verified (Name & Yes Yes Yes ) Patient Requires Transmission-Based No No No Precautions Safety Precautions NA NA Height and Weight Body Mass Index (BMI) 27.4 27.4 27.4 BMI Classification Overweight Overweight Overweight Vital Signs Temperature (97.8 F-99.1 F) 96.3 F L 97.2 F L 97.2 F L Temperature Source Temporal Temporal Temporal Pulse Rate (60-100) 113 H 103 H 102 H Pulse Location Monitor Monitor Monitor Respiratory Rate (12-18) 16 16 Respiratory rate source Observation Observation Oxygen Delivery Method Room Air Blood Pressure (90/60-120/80) 114/59 L 113/63 114/49 L Blood Pressure Mean (mm Hg) 77 79 70 Source Monitor Monitor Monitor Position Sitting Sitting Blood Pressure Location Right Arm Left Arm History Since Last Visit- (Skip if this is Patient's initial visit) Have you changed medications since your No No No last visit? Any new allergies or adverse reactions No No No Had a fall/change in ADL's that may No No No increase risk of falls Signs or symptoms of abuse and/or No No No neglect since last visit Have you been in the hospital since your No No last visit? Has dressing in place as prescribed Yes Yes Yes Has compression in place as prescribed N/A N/A N/A Has offloadiing in place as prescribed N/A N/A N/A Experienced any changes in pain level or No No No management Left Footwear Regular Shoe Regular Shoe Regular Shoe Right Footwear Regular Shoe Regular Shoe Regular Shoe Pain Scale: 0-10 Numeric Is Patient Pain Free? Yes Yes Yes WC - Nurse 1 - General Ulcer Measurement Start: 05/09/22 11:04 Freq: Status: Active Protocol: Activity Type Activity Date Activity User E-sign Co-sign Detail Recorded Client Recorded Date Recorded By Document 05/09/22 11:04 [facility] [id number] 05/09/22 11:23 [facility] Document 05/16/22 10:25 [place] [id number] 05/16/22 10:29 [place] Document 05/23/22 10:34 ML [id number] 05/23/22 10:46 ML 05/09/22 05/16/22 05/23/22 11:04 10:25 10:34 Wound Center Nurse 1 #4 LEFT POSTERIOR ANKLE -Combined with other wound No -Current Size (cm) - Length 0.1 -Current Size (cm) - Width 0.1 -Current Size (cm) - Depth 0.1 -Total Square Cm 0.01 -Date of Last Picture (Recall this 05/16/22 field) -Photo Taken Yes -Tunneling No -Undermining/Tunneling No -Change in Wound Grade/Stage No -Exudate Amt None Present -Wound Margin Distinct, Outline Attached -Granulation Amt None Present (0 %) -Granulation Quality N/A -Slough/Fibrin No -Necrosis Amt None Present (0 %) -Structure Exposed N/A -Texture (Cassandra-wound Skin Appearance) No Abnormality, Assessed -Moisture (Cassandra-wound Skin Appearance) No Abnormality, Assessed -Temperature (Cassandra-wound Skin No Abnormality Appearance) (Pt Warm) -Tenderness on Palpation (Cassandra-wound No Skin Appearance) -Ulcer Cleansing Rinsed/ Irrigated with Saline -Foul Odor after Cleansing No -Anesthetic Used 4% Lidocaine Solution #3- rectal -Combined with other wound No -Current Size (cm) - Length 0.1 -Current Size (cm) - Width 0.1 -Current Size (cm) - Depth 0.1 -Total Square Cm 0.01 -Date of Last Picture (Recall this 05/09/22 field) -Photo Taken Yes -Epithelialization Large 67-100% -Texture (Cassandra-wound Skin Appearance) Assessed -Moisture (Cassandra-wound Skin Appearance) Assessed -Color (Cassandra-wound Skin Appearance) Assessed #2 sacral -Combined with other wound No No -Current Size (cm) - Length 2.8 1.6 -Current Size (cm) - Width 0.5 0.6 -Current Size (cm) - Depth 0.1 0.2 -Total Square Cm 1.40 0.96 -Date of Last Picture (Recall this 05/09/22 05/16/22 field) -Photo Taken Yes Yes -Epithelialization None Present -Tunneling No No -Undermining/Tunneling No No -Circular Undermining No No -Change in Wound Grade/Stage No -Exudate Amt Small Medium -Exudate Type Serous Serosanguineous -Wound Margin Distinct, Distinct, Outline Outline Attached Attached -Granulation Amt None Present (0 None Present (0 %) %) -Granulation Quality N/A -Slough/Fibrin Yes Yes -Necrosis Amt Large (67-100%) Large (67-100%) -Necrotic Tissue Type Adherent Slough Adherent Slough -Structure Exposed N/A -Texture (Cassandra-wound Skin Appearance) Assessed, No Abnormality, Scarring Assessed -Moisture (Cassandra-wound Skin Appearance) Assessed Assessed,Dry/ Scaly -Color (Cassandra-wound Skin Appearance) Assessed, No Abnormality, Erythema Assessed -Temperature (Cassandra-wound Skin No Abnormality No Abnormality Appearance) (Pt Warm) (Pt Warm) -Tenderness on Palpation (Cassandra-wound No No Skin Appearance) -Ulcer Cleansing Rinsed/ Rinsed/ Irrigated with Irrigated with Saline Saline -Foul Odor after Cleansing No No -Anesthetic Used 4% Lidocaine 4% Lidocaine Solution Solution #1 R buttock -Combined with other wound No No -Current Size (cm) - Length 2.7 3 2.5 -Current Size (cm) - Width 1.3 2 2 -Current Size (cm) - Depth 0.5 0.9 1 -Total Square Cm 3.51 6 5.0 -Date of Last Picture (Recall this 05/09/22 05/16/22 field) -Photo Taken Yes Yes -Epithelialization None Present -Tunneling No No -Undermining/Tunneling Yes No -Undermining/Tunneling Starts (O'clock 3 ) -Undermining/Tunneling Ends (O'clock) 9 -Maximum Distance (cm) 0.6 -Circular Undermining No No Yes -Change in Wound Grade/Stage No -Exudate Amt Medium Large Medium -Exudate Type Serosanguineous Serosanguineous Serosanguineous -Wound Margin Distinct, Distinct, Distinct, Outline Outline Outline Attached Attached Attached -Granulation Amt Large (67-100%) Large (67-100%) Small (1-33%) -Granulation Quality [place] Red -Slough/Fibrin Yes Yes Yes -Necrosis Amt Small (1-33%) Small (1-33%) Medium (34-66%) -Necrotic Tissue Type Adherent Slough Adherent Slough Adherent Slough -Structure Exposed N/A -Texture (Cassandra-wound Skin Appearance) Assessed, No Abnormality, Assessed Scarring Assessed -Moisture (Cassandra-wound Skin Appearance) Assessed No Abnormality, Assessed Assessed -Color (Cassandra-wound Skin Appearance) Assessed No Abnormality, Assessed Assessed -Temperature (Cassandra-wound Skin No Abnormality No Abnormality No Abnormality Appearance) (Pt Warm) (Pt Warm) (Pt Warm) -Tenderness on Palpation (Cassandra-wound No No No Skin Appearance) -Ulcer Cleansing Rinsed/ Rinsed/ Rinsed/ Irrigated with Irrigated with Irrigated with Saline Saline Saline -Foul Odor after Cleansing No No -Anesthetic Used 4% Lidocaine 4% Lidocaine Solution Solution WC - Nurse 2 - General Ulcer CM Notes Start: 05/09/22 11:04 Freq: Status: Active Protocol: Activity Type Activity Date Activity User E-sign Co-sign Detail Recorded Client Recorded Date Recorded By Document 05/09/22 11:29 MW [id number] 05/09/22 11:43 MW Document 05/16/22 11:33 PL [id number] 05/16/22 11:37 PL Document 05/23/22 10:57 MW [id number] 05/23/22 11:03 MW 05/09/22 05/16/22 05/23/22 11:29 11:33 10:57 Wound Center Nurse 2 #4 LEFT POSTERIOR ANKLE -Time 11:33 -Correct Patient Yes -Correct Side, Site, Position Yes -Correct Procedure Yes -Procedure Performed Yes No -Type of Procedure Debridement -Clinical Debridement Subcutaneous -Tissue Removed Subcutaneous -Post Debridement (cm) - Length 3.5 -Post Debridement (cm) - Width 5.0 -Post Debridement (cm) - Depth 0.1 -Total Square (Post) (cm) 17.50 -Area of Debridement (cm) - Length 3.5 -Area of Debridement (cm) - Width 5.0 -Total Square (Area) (cm) 17.50 -Tunneling No -Undermining/Tunneling No -Circular Undermining No -Wound/Ulcer Outcome Not Healed Healed- Epithelialized -Ulcer Cleansing Rinsed/ Irrigated with Saline -Foul Odor after Cleansing No -Bioengineered Tissue No -Bleeding Controlled with Pressure -Treatment Response Procedure Tolerated Well -Offloading No -Debridement - Subq, 1st 20sq cm Yes -Debridement, SubQ, ea addt'l 20sq cm 1 or part thereof #3- rectal -Time 11:31 -Correct Patient Yes -Correct Side, Site, Position Yes -Correct Procedure Yes -Procedure Performed No -Post Debridement (cm) - Length 0 -Post Debridement (cm) - Width 0 -Total Square (Post) (cm) 0 -Wound/Ulcer Outcome Healed- Epithelialized #2 sacral -Time 11:37 -Correct Patient Yes -Correct Side, Site, Position Yes -Correct Procedure Yes -Procedure Performed No No -Post Debridement (cm) - Length 2.8 -Post Debridement (cm) - Width 0.5 -Post Debridement (cm) - Depth 0.1 -Total Square (Post) (cm) 1.40 -Tunneling No -Undermining/Tunneling No -Circular Undermining No -Wound/Ulcer Outcome Not Healed Healed- Epithelialized -Ulcer Cleansing Rinsed/ Irrigated with Saline -Foul Odor after Cleansing No -Bioengineered Tissue No -Bleeding Controlled with Pressure -Treatment Response Procedure Tolerated Well -Offloading No -Debridement - Subq, 1st 20sq cm No #5 RIGHT LATERAL LE -Time 10:58 -Correct Patient Yes -Correct Side, Site, Position Yes -Correct Procedure Yes -Procedure Performed Yes -Type of Procedure Debridement -Clinical Debridement Subcutaneous -Tissue Removed Subcutaneous -Post Debridement (cm) - Length 8.5 -Post Debridement (cm) - Width 2.0 -Post Debridement (cm) - Depth 0.1 -Total Square (Post) (cm) 17.00 -Area of Debridement (cm) - Length 8.5 -Area of Debridement (cm) - Width 2.0 -Total Square (Area) (cm) 17.00 -Tunneling No -Undermining/Tunneling No -Circular Undermining No -Wound/Ulcer Outcome Not Healed -Ulcer Cleansing Rinsed/ Irrigated with Saline -Foul Odor after Cleansing No -Bioengineered Tissue No -Bleeding Controlled with Pressure -Treatment Response Procedure Tolerated Well -Offloading No -Debridement - Subq, 1st 20sq cm No #1 R buttock -Time 11:37 10:35 10:59 -Correct Patient Yes Yes Yes -Correct Side, Site, Position Yes Yes Yes -Correct Procedure Yes Yes Yes -Procedure Performed Yes Yes Yes -Type of Procedure Debridement Debridement Debridement -Clinical Debridement Subcutaneous Subcutaneous Subcutaneous -Tissue Removed Subcutaneous Subcutaneous Subcutaneous -Post Debridement (cm) - Length 3.5 3.0 3.0 -Post Debridement (cm) - Width 2.0 2.0 2.0 -Post Debridement (cm) - Depth 0.9 0.5 0.5 -Total Square (Post) (cm) 7.00 6.00 6.00 -Area of Debridement (cm) - Length 3.5 3.0 3.0 -Area of Debridement (cm) - Width 2.0 2.0 2.0 -Total Square (Area) (cm) 7.00 6.00 6.00 -Tunneling No No No -Undermining/Tunneling No No No -Circular Undermining No No No -Wound/Ulcer Outcome Not Healed Healed- Not Healed Surgical Closure -Ulcer Cleansing Rinsed/ Rinsed/ Irrigated with Irrigated with Saline Saline -Foul Odor after Cleansing No No No -Bioengineered Tissue No No No -Bleeding Controlled with Pressure Pressure Pressure -Treatment Response Procedure Procedure Procedure Tolerated Well Tolerated Well Tolerated Well -Offloading No -Debridement - Subq, 1st 20sq cm No Yes Yes -Debridement, SubQ, ea addt'l 20sq cm 1 or part thereof Pain Scale: 0-10 Numeric Is Patient Pain Free? Yes Yes Yes WC - Nurse 3 - General Ulcer D/C NN Start: 05/09/22 11:04 Freq: Status: Active Protocol: Activity Type Activity Date Activity User E-sign Co-sign Detail Recorded Client Recorded Date Recorded By Document 05/09/22 11:48 ML [id number] 05/09/22 11:52 ML Document 05/16/22 10:51 [place] [id number] 05/16/22 10:53 [place] Document 05/23/22 11:14 [facility] [id number] 05/23/22 11:16 BMF 05/09/22 05/16/22 05/23/22 11:48 10:51 11:14 Wound Care Center Nurse 3 #4 LEFT POSTERIOR ANKLE -Primary Dressing Applied Mepilex Border -Other Dressing xeroform, adaptic -Mepilex Border 1 #2 sacral -Ulcer Cleansing Rinsed/ Rinsed/ Irrigated with Irrigated with Saline Saline -Primary Dressing Applied Aquacel Extra, Aquacel AG 4x4, Mepilex Border Mepilex Border -Aquacel Extra 1 -Aquacel AG 4x4 1 -Mepilex Border 1 2 #5 RIGHT LATERAL LE -Ulcer Cleansing Rinsed/ Irrigated with Saline -Foul Odor after Cleansing No -Primary Dressing Applied NonAdherent Contact Layer, Mepilex Border -Other Dressing XEROFORM, THEN ADAPTIC, PER ML BOARD OPERATOR -Other Covering MEPILEX 6X6 -Mepilex Border 1 #1 R buttock -Ulcer Cleansing Rinsed/ Rinsed/ Rinsed/ Irrigated with Irrigated with Irrigated with Saline Saline Saline -Foul Odor after Cleansing No -Primary Dressing Applied Aquacel AG 4x4, Aquacel AG 4x4, Mepilex Border Mepilex Border -Other Dressing PER ML BOARD OPERATOR -Other Covering MEPILEX 4X4 -Aquacel AG 4x4 1 1 -Mepilex Border 1 1 Treatment Response Procedure Tolerated Well Pain Scale: 0-10 Numeric Is Patient Pain Free? Yes Yes Yes WC - Visit Discharge Discharge Condition Stable Stable Ambulatory Status Wheelchair Transportation Private Auto Private Auto Accompanied by aid CAREGIVER Medication Reconcilliation completed & Yes provided to patient/care provider Clinical Summary of Care Provided Yes Additional Wound Wound debrided: Right lateral lower leg blister open from shearing Laterality: Right Wound Grade/Stage: Stage II Type of Debridement: Selective debridement Anesthesia Used: 5% Lidocaine Gel Depth: Down to and including healthy tissue and in the subcutaneous layer Percentage of wound debrided: 100 Instrument Used: 7mm curette Tissue Removed: Devitalized tissue fibrin Severity: Limited To Skin Breakdown Amount of bleeding with debridement: Mild Bleeding Controlled with: Compression and gauze Patient tolerated procedure: Patient tolerated procedure well Assessment/Plan Assessment/Plan (1) Decubitus ulcer of right leg, stage 2: CODE(S): L89.892 - Pressure ulcer of other site, stage 2 PLAN: Wash area with antibacterial soap such as Dial up pat dry apply Xeroform dressing with Adaptic over top and dry dressing 2 times a day (2) Blister (nonthermal), left ankle, initial encounter: CODE(S): S90.522A - Blister (nonthermal), left ankle, initial encounter (3) Decubitus ulcer of coccyx, stage 2: CODE(S): L89.152 - Pressure ulcer of sacral region, stage 2 PLAN: Continue packing with Aquacel Ag 2 times a day cover with absorbent dressing Follow-up in 1 week
[2022-05-30 11:05] VITALS: BP 122/62; RESP 16; TEMP 36.1; BMI 27.4
--- NOTE | 2022-05-30 12:58 | PN.PCM_ITS ---
History of Present Illness Date of Service: 05/30/22 Chief Complaint: Follow-up right buttocks wound History of Wound: Ms. Walker is a very pleasant 42-year-old with a history of spina bifida with history of recurrent decubitus ulcers. Has been following up here for right buttock ulcer which opened up months ago. Prior to her initial visit here, had been following up at [facility] and had some point had a flap closure. Moved here to be closer with family. Has had 1 application of epi fix so far however unfortunately this did not stay on. History of insulin- dependent diabetes mellitus. She states that her blood readings are all over the place. She reports compliance with her medications. She feels well at this time and denies chills, fever, nausea, vomiting or change in bowel habit. Progress of Wound: Patient is self-cathing herself 4-5 times a day. The wound today is better and not macerated like it was last week. Wound measurements are smaller from last week The left inner ankle heel blister is already resolved using Xeroform dressing. The right lateral leg is resolved using the Xeroform also. Doing well with measurements and taking care of the wound were having her do the dressing changes twice daily on the buttocks which seems to be helping it does appear smaller. Subjective Subjective Patient is upset that she will not be seen for 2 weeks Objective Data Objective Data Patient has home health and nursing visits weekly and and daily so the dressings are taking care of she can wait 2 weeks. Vital Signs: Vital Signs Temp Pulse Resp BP O2 Del Method 97 F L 102 H 16 122/62 H Room Air 05/30/22 11:05 05/23/22 10:34 05/30/22 11:05 05/30/22 11:05 05/30/22 11:05 Oxygen Delivery Method Room Air Weight: 90 lb Body Mass Index (BMI) 27.4 Lab / Micro Data Attestation: I reviewed the patient's lab results. Physical Exam Const alert, oriented x3 and no apparent distress General Appearance: cooperative and well kempt HEENT normocephalic, head/scalp atraumatic and hearing grossly normal bilaterally Eyes General Eye: normal appearance of both eyes Neck full ROM and supple General: normal visual inspection Resp normal respiratory effort Effort and Inspection: able to speak in complete sentences Extremity no clubbing, cyanosis or edema Skin Wounds: wounds noted Neuro oriented x3 and CN's II-XII intact bilaterally Psych mental status grossly normal, thought process normal, cooperative and affect normal Appearance: grossly normal Debridement Note Debridement Note Wound debrided: Decubitus ulcer right buttocks Laterality: Right Wound Grade/Stage: Stage III Type of Debridement: Excisional debridement Anesthesia Used: 5% Lidocaine Gel Depth: in the subcutaneous layer and to muscle Percentage of wound debrided: 100 Instrument Used: 7mm curette Tissue Removed: Fibrin Severity: Fat Layer Exposed Amount of bleeding with debridement: Moderate Bleeding Controlled with: Compression and gauze Patient tolerated procedure: Patient tolerated procedure well Post-Debridement Measurements and Additional Note: Post-Debridement Measurements/Treatment - Nurse 1 - General Ulcer Assessment Start: 05/09/22 11:04 Freq: Status: Active Protocol: KRISTIN Activity Type Activity Date Activity User E-sign Co-sign Detail Recorded Client Recorded Date Recorded By Document 05/09/22 11:04 [facility] [id number] 05/09/22 11:23 [facility] Document 05/16/22 10:25 AK [id number] 05/16/22 10:29 AK Document 05/23/22 10:34 ML [id number] 05/23/22 10:46 ML Document 05/30/22 11:05 [facility] [id number] 05/30/22 11:15 [facility] 05/09/22 05/16/22 05/23/22 11:04 10:25 10:34 - Today's Visit Information Type of service Follow-up Visit Follow-up Visit Follow-up Visit (Physician/COMPUTER GAME TESTER (Physician/COMPUTER GAME TESTER (Physician/COMPUTER GAME TESTER ) ) ) Arrival Mode Wheelchair Wheelchair Wheelchair Transfer Assistance Other None Transfer Assist (Other) 2 Accompanied by 2 caregivers Patient Identification Verified (Name & Yes Yes Yes ) Patient Requires Transmission-Based No No No Precautions Safety Precautions NA NA Height and Weight Body Mass Index (BMI) 27.4 27.4 27.4 BMI Classification Overweight Overweight Overweight Vital Signs Temperature (97.8 F-99.1 F) 96.3 F L 97.2 F L 97.2 F L Temperature Source Temporal Temporal Temporal Pulse Rate (60-100) 113 H 103 H 102 H Pulse Location Monitor Monitor Monitor Respiratory Rate (12-18) 16 16 Respiratory rate source Observation Observation Oxygen Delivery Method Room Air Blood Pressure (90/60-120/80) 114/59 L 113/63 114/49 L Blood Pressure Mean (mm Hg) 77 79 70 Source Monitor Monitor Monitor Position Sitting Sitting Blood Pressure Location Right Arm Left Arm History Since Last Visit- (Skip if this is Patient's initial visit) Have you changed medications since your No No No last visit? Any new allergies or adverse reactions No No No Had a fall/change in ADL's that may No No No increase risk of falls Signs or symptoms of abuse and/or No No No neglect since last visit Have you been in the hospital since your No No last visit? Has dressing in place as prescribed Yes Yes Yes Has compression in place as prescribed N/A N/A N/A Has offloadiing in place as prescribed N/A N/A N/A Experienced any changes in pain level or No No No management Left Footwear Regular Shoe Regular Shoe Regular Shoe Right Footwear Regular Shoe Regular Shoe Regular Shoe Pain Scale: 0-10 Numeric Is Patient Pain Free? Yes Yes Yes 05/30/22 11:05 - Today's Visit Information Type of service Follow-up Visit (Physician/COMPUTER GAME TESTER ) Arrival Mode Wheelchair Transfer Assistance Other Transfer Assist (Other) STAND BY Accompanied by CAREGIVER Patient Identification Verified (Name & Yes ) Patient Requires Transmission-Based No Precautions Safety Precautions Height and Weight Body Mass Index (BMI) 27.4 BMI Classification Overweight Vital Signs Temperature (97.8 F-99.1 F) 97 F L Temperature Source Temporal Pulse Rate (60-100) Pulse Location Respiratory Rate (12-18) 16 Respiratory rate source Observation Oxygen Delivery Method Room Air Blood Pressure (90/60-120/80) 122/62 H Blood Pressure Mean (mm Hg) 82 Source Monitor Position Sitting Blood Pressure Location Left Arm History Since Last Visit- (Skip if this is Patient's initial visit) Have you changed medications since your No last visit? Any new allergies or adverse reactions No Had a fall/change in ADL's that may No increase risk of falls Signs or symptoms of abuse and/or No neglect since last visit Have you been in the hospital since your No last visit? Has dressing in place as prescribed Yes Has compression in place as prescribed N/A Has offloadiing in place as prescribed N/A Experienced any changes in pain level or No management Left Footwear Regular Shoe Right Footwear Regular Shoe Pain Scale: 0-10 Numeric Is Patient Pain Free? Yes WC - Nurse 1 - General Ulcer Measurement Start: 05/09/22 11:04 Freq: Status: Active Protocol: Activity Type Activity Date Activity User E-sign Co-sign Detail Recorded Client Recorded Date Recorded By Document 05/09/22 11:04 BM [id number] 05/09/22 11:23 BMF Document 05/16/22 10:25 AK [id number] 05/16/22 10:29 AK Document 05/23/22 10:34 ML [id number] 05/23/22 10:46 ML Document 05/30/22 11:05 BM [id number] 05/30/22 11:15 BMF 05/09/22 05/16/22 05/23/22 11:04 10:25 10:34 Wound Center Nurse 1 #5 RIGHT LATERAL LE -Combined with other wound -Current Size (cm) - Length -Current Size (cm) - Width -Current Size (cm) - Depth -Total Square Cm -Date of Last Picture (Recall this field) -Photo Taken -Epithelialization -Tunneling -Undermining/Tunneling -Circular Undermining -Exudate Amt -Wound Margin -Granulation Amt -Texture (Cassandra-wound Skin Appearance) -Moisture (Cassandra-wound Skin Appearance) -Color (Cassandra-wound Skin Appearance) -Temperature (Cassandra-wound Skin Appearance) -Tenderness on Palpation (Cassandra-wound Skin Appearance) -Ulcer Cleansing -Foul Odor after Cleansing -Anesthetic Used #4 LEFT POSTERIOR ANKLE -Combined with other wound No -Current Size (cm) - Length 0.1 -Current Size (cm) - Width 0.1 -Current Size (cm) - Depth 0.1 -Total Square Cm 0.01 -Date of Last Picture (Recall this 05/16/22 field) -Photo Taken Yes -Tunneling No -Undermining/Tunneling No -Change in Wound Grade/Stage No -Exudate Amt None Present -Wound Margin Distinct, Outline Attached -Granulation Amt None Present (0 %) -Granulation Quality N/A -Slough/Fibrin No -Necrosis Amt None Present (0 %) -Structure Exposed N/A -Texture (Cassandra-wound Skin Appearance) No Abnormality, Assessed -Moisture (Cassandra-wound Skin Appearance) No Abnormality, Assessed -Temperature (Cassandra-wound Skin No Abnormality Appearance) (Pt Warm) -Tenderness on Palpation (Cassandra-wound No Skin Appearance) -Ulcer Cleansing Rinsed/ Irrigated with Saline -Foul Odor after Cleansing No -Anesthetic Used 4% Lidocaine Solution #3- rectal -Combined with other wound No -Current Size (cm) - Length 0.1 -Current Size (cm) - Width 0.1 -Current Size (cm) - Depth 0.1 -Total Square Cm 0.01 -Date of Last Picture (Recall this 05/09/22 field) -Photo Taken Yes -Epithelialization Large 67-100% -Texture (Cassandra-wound Skin Appearance) Assessed -Moisture (Cassandra-wound Skin Appearance) Assessed -Color (Cassandra-wound Skin Appearance) Assessed #2 sacral -Combined with other wound No No -Current Size (cm) - Length 2.8 1.6 -Current Size (cm) - Width 0.5 0.6 -Current Size (cm) - Depth 0.1 0.2 -Total Square Cm 1.40 0.96 -Date of Last Picture (Recall this 05/09/22 05/16/22 field) -Photo Taken Yes Yes -Epithelialization None Present -Tunneling No No -Undermining/Tunneling No No -Circular Undermining No No -Change in Wound Grade/Stage No -Exudate Amt Small Medium -Exudate Type Serous Serosanguineous -Wound Margin Distinct, Distinct, Outline Outline Attached Attached -Granulation Amt None Present (0 None Present (0 %) %) -Granulation Quality N/A -Slough/Fibrin Yes Yes -Necrosis Amt Large (67-100%) Large (67-100%) -Necrotic Tissue Type Adherent Slough Adherent Slough -Structure Exposed N/A -Texture (Cassandra-wound Skin Appearance) Assessed, No Abnormality, Scarring Assessed -Moisture (Cassandra-wound Skin Appearance) Assessed Assessed,Dry/ Scaly -Color (Cassandra-wound Skin Appearance) Assessed, No Abnormality, Erythema Assessed -Temperature (Cassandra-wound Skin No Abnormality No Abnormality Appearance) (Pt Warm) (Pt Warm) -Tenderness on Palpation (Cassandra-wound No No Skin Appearance) -Ulcer Cleansing Rinsed/ Rinsed/ Irrigated with Irrigated with Saline Saline -Foul Odor after Cleansing No No -Anesthetic Used 4% Lidocaine 4% Lidocaine Solution Solution #1 R buttock -Combined with other wound No No -Current Size (cm) - Length 2.7 3 2.5 -Current Size (cm) - Width 1.3 2 2 -Current Size (cm) - Depth 0.5 0.9 1 -Total Square Cm 3.51 6 5.0 -Date of Last Picture (Recall this 05/09/22 05/16/22 field) -Photo Taken Yes Yes -Epithelialization None Present -Tunneling No No -Undermining/Tunneling Yes No -Undermining/Tunneling Starts (O'clock 3 ) -Undermining/Tunneling Ends (O'clock) 9 -Maximum Distance (cm) 0.6 -Circular Undermining No No Yes -Change in Wound Grade/Stage No -Exudate Amt Medium Large Medium -Exudate Type Serosanguineous Serosanguineous Serosanguineous -Wound Margin Distinct, Distinct, Distinct, Outline Outline Outline Attached Attached Attached -Granulation Amt Large (67-100%) Large (67-100%) Small (1-33%) -Granulation Quality Healy Red -Slough/Fibrin Yes Yes Yes -Necrosis Amt Small (1-33%) Small (1-33%) Medium (34-66%) -Necrotic Tissue Type Adherent Slough Adherent Slough Adherent Slough -Structure Exposed N/A -Texture (Cassandra-wound Skin Appearance) Assessed, No Abnormality, Assessed Scarring Assessed -Moisture (Cassandra-wound Skin Appearance) Assessed No Abnormality, Assessed Assessed -Color (Cassandra-wound Skin Appearance) Assessed No Abnormality, Assessed Assessed -Temperature (Cassandra-wound Skin No Abnormality No Abnormality No Abnormality Appearance) (Pt Warm) (Pt Warm) (Pt Warm) -Tenderness on Palpation (Cassandra-wound No No No Skin Appearance) -Ulcer Cleansing Rinsed/ Rinsed/ Rinsed/ Irrigated with Irrigated with Irrigated with Saline Saline Saline -Foul Odor after Cleansing No No -Anesthetic Used 4% Lidocaine 4% Lidocaine Solution Solution 05/30/22 11:05 Wound Center Nurse 1 #5 RIGHT LATERAL LE -Combined with other wound No -Current Size (cm) - Length 0.1 -Current Size (cm) - Width 0.1 -Current Size (cm) - Depth 0.1 -Total Square Cm 0.01 -Date of Last Picture (Recall this 05/30/22 field) -Photo Taken Yes -Epithelialization Large 67-100% -Tunneling No -Undermining/Tunneling No -Circular Undermining No -Exudate Amt None Present -Wound Margin Flat & Intact -Granulation Amt None Present (0 %) -Texture (Cassandra-wound Skin Appearance) Assessed, Scarring -Moisture (Cassandra-wound Skin Appearance) Assessed -Color (Cassandra-wound Skin Appearance) Assessed -Temperature (Cassandra-wound Skin No Abnormality Appearance) (Pt Warm) -Tenderness on Palpation (Cassandra-wound No Skin Appearance) -Ulcer Cleansing Rinsed/ Irrigated with Saline -Foul Odor after Cleansing No -Anesthetic Used 4% Lidocaine Solution #4 LEFT POSTERIOR ANKLE -Combined with other wound -Current Size (cm) - Length -Current Size (cm) - Width -Current Size (cm) - Depth -Total Square Cm -Date of Last Picture (Recall this field) -Photo Taken -Tunneling -Undermining/Tunneling -Change in Wound Grade/Stage -Exudate Amt -Wound Margin -Granulation Amt -Granulation Quality -Slough/Fibrin -Necrosis Amt -Structure Exposed -Texture (Cassandra-wound Skin Appearance) -Moisture (Cassandra-wound Skin Appearance) -Temperature (Cassandra-wound Skin Appearance) -Tenderness on Palpation (Cassandra-wound Skin Appearance) -Ulcer Cleansing -Foul Odor after Cleansing -Anesthetic Used #3- rectal -Combined with other wound -Current Size (cm) - Length -Current Size (cm) - Width -Current Size (cm) - Depth -Total Square Cm -Date of Last Picture (Recall this field) -Photo Taken -Epithelialization -Texture (Cassandra-wound Skin Appearance) -Moisture (Cassandra-wound Skin Appearance) -Color (Cassandra-wound Skin Appearance) #2 sacral -Combined with other wound -Current Size (cm) - Length -Current Size (cm) - Width -Current Size (cm) - Depth -Total Square Cm -Date of Last Picture (Recall this field) -Photo Taken -Epithelialization -Tunneling -Undermining/Tunneling -Circular Undermining -Change in Wound Grade/Stage -Exudate Amt -Exudate Type -Wound Margin -Granulation Amt -Granulation Quality -Slough/Fibrin -Necrosis Amt -Necrotic Tissue Type -Structure Exposed -Texture (Cassandra-wound Skin Appearance) -Moisture (Cassandra-wound Skin Appearance) -Color (Cassandra-wound Skin Appearance) -Temperature (Cassandra-wound Skin Appearance) -Tenderness on Palpation (Cassandra-wound Skin Appearance) -Ulcer Cleansing -Foul Odor after Cleansing -Anesthetic Used #1 R buttock -Combined with other wound No -Current Size (cm) - Length 2.4 -Current Size (cm) - Width 2.8 -Current Size (cm) - Depth 0.3 -Total Square Cm 6.72 -Date of Last Picture (Recall this 05/30/22 field) -Photo Taken Yes -Epithelialization None Present -Tunneling No -Undermining/Tunneling Yes -Undermining/Tunneling Starts (O'clock 1 ) -Undermining/Tunneling Ends (O'clock) 3 -Maximum Distance (cm) 1 -Circular Undermining No -Change in Wound Grade/Stage -Exudate Amt Medium -Exudate Type Serosanguineous -Wound Margin Distinct, Outline Attached -Granulation Amt Medium (34-66%) -Granulation Quality Healy -Slough/Fibrin Yes -Necrosis Amt Medium (34-66%) -Necrotic Tissue Type Adherent Slough -Structure Exposed -Texture (Cassandra-wound Skin Appearance) Assessed, Scarring -Moisture (Cassandra-wound Skin Appearance) Assessed -Color (Cassandra-wound Skin Appearance) Assessed -Temperature (Cassandra-wound Skin No Abnormality Appearance) (Pt Warm) -Tenderness on Palpation (Cassandra-wound No Skin Appearance) -Ulcer Cleansing Soap and Water -Foul Odor after Cleansing No -Anesthetic Used 4% Lidocaine Solution WC - Nurse 2 - General Ulcer CM Notes Start: 05/09/22 11:04 Freq: Status: Active Protocol: Activity Type Activity Date Activity User E-sign Co-sign Detail Recorded Client Recorded Date Recorded By Document 05/09/22 11:29 MW [id number] 05/09/22 11:43 MW Document 05/16/22 11:33 PL [id number] 05/16/22 11:37 PL Document 05/23/22 10:57 MW [id number] 05/23/22 11:03 MW Document 05/30/22 11:33 MW [id number] 05/30/22 11:37 MW 05/09/22 05/16/22 05/23/22 11:29 11:33 10:57 Wound Center Nurse 2 #5 RIGHT LATERAL LE -Time 10:58 -Correct Patient Yes -Correct Side, Site, Position Yes -Correct Procedure Yes -Procedure Performed Yes -Type of Procedure Debridement -Clinical Debridement Subcutaneous -Tissue Removed Subcutaneous -Post Debridement (cm) - Length 8.5 -Post Debridement (cm) - Width 2.0 -Post Debridement (cm) - Depth 0.1 -Total Square (Post) (cm) 17.00 -Area of Debridement (cm) - Length 8.5 -Area of Debridement (cm) - Width 2.0 -Total Square (Area) (cm) 17.00 -Tunneling No -Undermining/Tunneling No -Circular Undermining No -Wound/Ulcer Outcome Not Healed -Ulcer Cleansing Rinsed/ Irrigated with Saline -Foul Odor after Cleansing No -Bioengineered Tissue No -Bleeding Controlled with Pressure -Treatment Response Procedure Tolerated Well -Offloading No -Debridement - Subq, 1st 20sq cm No #4 LEFT POSTERIOR ANKLE -Time 11:33 -Correct Patient Yes -Correct Side, Site, Position Yes -Correct Procedure Yes -Procedure Performed Yes No -Type of Procedure Debridement -Clinical Debridement Subcutaneous -Tissue Removed Subcutaneous -Post Debridement (cm) - Length 3.5 -Post Debridement (cm) - Width 5.0 -Post Debridement (cm) - Depth 0.1 -Total Square (Post) (cm) 17.50 -Area of Debridement (cm) - Length 3.5 -Area of Debridement (cm) - Width 5.0 -Total Square (Area) (cm) 17.50 -Tunneling No -Undermining/Tunneling No -Circular Undermining No -Wound/Ulcer Outcome Not Healed Healed- Epithelialized -Ulcer Cleansing Rinsed/ Irrigated with Saline -Foul Odor after Cleansing No -Bioengineered Tissue No -Bleeding Controlled with Pressure -Treatment Response Procedure Tolerated Well -Offloading No -Debridement - Subq, 1st 20sq cm Yes -Debridement, SubQ, ea addt'l 20sq cm 1 or part thereof #3- rectal -Time 11:31 -Correct Patient Yes -Correct Side, Site, Position Yes -Correct Procedure Yes -Procedure Performed No -Post Debridement (cm) - Length 0 -Post Debridement (cm) - Width 0 -Total Square (Post) (cm) 0 -Wound/Ulcer Outcome Healed- Epithelialized #2 sacral -Time 11:37 -Correct Patient Yes -Correct Side, Site, Position Yes -Correct Procedure Yes -Procedure Performed No No -Post Debridement (cm) - Length 2.8 -Post Debridement (cm) - Width 0.5 -Post Debridement (cm) - Depth 0.1 -Total Square (Post) (cm) 1.40 -Tunneling No -Undermining/Tunneling No -Circular Undermining No -Wound/Ulcer Outcome Not Healed Healed- Epithelialized -Ulcer Cleansing Rinsed/ Irrigated with Saline -Foul Odor after Cleansing No -Bioengineered Tissue No -Bleeding Controlled with Pressure -Treatment Response Procedure Tolerated Well -Offloading No -Debridement - Subq, 1st 20sq cm No #1 R buttock -Time 11:37 10:35 10:59 -Correct Patient Yes Yes Yes -Correct Side, Site, Position Yes Yes Yes -Correct Procedure Yes Yes Yes -Procedure Performed Yes Yes Yes -Type of Procedure Debridement Debridement Debridement -Clinical Debridement Subcutaneous Subcutaneous Subcutaneous -Tissue Removed Subcutaneous Subcutaneous Subcutaneous -Post Debridement (cm) - Length 3.5 3.0 3.0 -Post Debridement (cm) - Width 2.0 2.0 2.0 -Post Debridement (cm) - Depth 0.9 0.5 0.5 -Total Square (Post) (cm) 7.00 6.00 6.00 -Area of Debridement (cm) - Length 3.5 3.0 3.0 -Area of Debridement (cm) - Width 2.0 2.0 2.0 -Total Square (Area) (cm) 7.00 6.00 6.00 -Tunneling No No No -Undermining/Tunneling No No No -Circular Undermining No No No -Wound/Ulcer Outcome Not Healed Healed- Not Healed Surgical Closure -Ulcer Cleansing Rinsed/ Rinsed/ Irrigated with Irrigated with Saline Saline -Foul Odor after Cleansing No No No -Bioengineered Tissue No No No -Bleeding Controlled with Pressure Pressure Pressure -Treatment Response Procedure Procedure Procedure Tolerated Well Tolerated Well Tolerated Well -Offloading No -Debridement - Subq, 1st 20sq cm No Yes Yes -Debridement, SubQ, ea addt'l 20sq cm 1 or part thereof Pain Scale: 0-10 Numeric Is Patient Pain Free? Yes Yes Yes 05/30/22 11:33 Wound Center Nurse 2 #5 RIGHT LATERAL LE -Time 11:33 -Correct Patient Yes -Correct Side, Site, Position Yes -Correct Procedure Yes -Procedure Performed No -Type of Procedure -Clinical Debridement -Tissue Removed -Post Debridement (cm) - Length 0 -Post Debridement (cm) - Width 0 -Post Debridement (cm) - Depth 0 -Total Square (Post) (cm) 0 -Area of Debridement (cm) - Length -Area of Debridement (cm) - Width -Total Square (Area) (cm) -Tunneling -Undermining/Tunneling -Circular Undermining -Wound/Ulcer Outcome Healed- Epithelialized -Ulcer Cleansing -Foul Odor after Cleansing -Bioengineered Tissue -Bleeding Controlled with -Treatment Response -Offloading -Debridement - Subq, 1st 20sq cm #4 LEFT POSTERIOR ANKLE -Time -Correct Patient -Correct Side, Site, Position -Correct Procedure -Procedure Performed -Type of Procedure -Clinical Debridement -Tissue Removed -Post Debridement (cm) - Length -Post Debridement (cm) - Width -Post Debridement (cm) - Depth -Total Square (Post) (cm) -Area of Debridement (cm) - Length -Area of Debridement (cm) - Width -Total Square (Area) (cm) -Tunneling -Undermining/Tunneling -Circular Undermining -Wound/Ulcer Outcome -Ulcer Cleansing -Foul Odor after Cleansing -Bioengineered Tissue -Bleeding Controlled with -Treatment Response -Offloading -Debridement - Subq, 1st 20sq cm -Debridement, SubQ, ea addt'l 20sq cm or part thereof #3- rectal -Time -Correct Patient -Correct Side, Site, Position -Correct Procedure -Procedure Performed -Post Debridement (cm) - Length -Post Debridement (cm) - Width -Total Square (Post) (cm) -Wound/Ulcer Outcome #2 sacral -Time -Correct Patient -Correct Side, Site, Position -Correct Procedure -Procedure Performed -Post Debridement (cm) - Length -Post Debridement (cm) - Width -Post Debridement (cm) - Depth -Total Square (Post) (cm) -Tunneling -Undermining/Tunneling -Circular Undermining -Wound/Ulcer Outcome -Ulcer Cleansing -Foul Odor after Cleansing -Bioengineered Tissue -Bleeding Controlled with -Treatment Response -Offloading -Debridement - Subq, 1st 20sq cm #1 R buttock -Time 11:34 -Correct Patient Yes -Correct Side, Site, Position Yes -Correct Procedure Yes -Procedure Performed Yes -Type of Procedure Debridement -Clinical Debridement Subcutaneous -Tissue Removed Subcutaneous -Post Debridement (cm) - Length 2.5 -Post Debridement (cm) - Width 2.5 -Post Debridement (cm) - Depth 0.4 -Total Square (Post) (cm) 6.25 -Area of Debridement (cm) - Length 2.5 -Area of Debridement (cm) - Width 2.5 -Total Square (Area) (cm) 6.25 -Tunneling No -Undermining/Tunneling No -Circular Undermining No -Wound/Ulcer Outcome Not Healed -Ulcer Cleansing Rinsed/ Irrigated with Saline -Foul Odor after Cleansing No -Bioengineered Tissue No -Bleeding Controlled with Pressure -Treatment Response Procedure Tolerated Well -Offloading No -Debridement - Subq, 1st 20sq cm Yes -Debridement, SubQ, ea addt'l 20sq cm or part thereof Pain Scale: 0-10 Numeric Is Patient Pain Free? Yes WC - Nurse 3 - General Ulcer D/C NN Start: 05/09/22 11:04 Freq: Status: Active Protocol: Activity Type Activity Date Activity User E-sign Co-sign Detail Recorded Client Recorded Date Recorded By Document 05/09/22 11:48 ML [id number] 05/09/22 11:52 ML Document 05/16/22 10:51 AK [id number] 05/16/22 10:53 AK Document 05/23/22 11:14 [facility] [id number] 05/23/22 11:16 [facility] Document 05/30/22 11:44 [facility] [id number] 05/30/22 11:46 [facility] 05/09/22 05/16/22 05/23/22 11:48 10:51 11:14 Wound Care Center Nurse 3 #5 RIGHT LATERAL LE -Ulcer Cleansing Rinsed/ Irrigated with Saline -Foul Odor after Cleansing No -Primary Dressing Applied NonAdherent Contact Layer, Mepilex Border -Other Dressing XEROFORM, THEN ADAPTIC, PER ML SUPERVISOR COLOR MAKING -Other Covering MEPILEX 6X6 -Mepilex Border 1 #4 LEFT POSTERIOR ANKLE -Primary Dressing Applied Mepilex Border -Other Dressing xeroform, adaptic -Mepilex Border 1 #2 sacral -Ulcer Cleansing Rinsed/ Rinsed/ Irrigated with Irrigated with Saline Saline -Primary Dressing Applied Aquacel Extra, Aquacel AG 4x4, Mepilex Border Mepilex Border -Aquacel Extra 1 -Aquacel AG 4x4 1 -Mepilex Border 1 2 #1 R buttock -Ulcer Cleansing Rinsed/ Rinsed/ Rinsed/ Irrigated with Irrigated with Irrigated with Saline Saline Saline -Foul Odor after Cleansing No -Negative Pressure Wound Therapy -Primary Dressing Applied Aquacel AG 4x4, Aquacel AG 4x4, Mepilex Border Mepilex Border -Other Dressing PER ML SUPERVISOR COLOR MAKING -Other Covering MEPILEX 4X4 -Aquacel AG 4x4 1 1 -Mepilex Border 1 1 Treatment Response Procedure Tolerated Well Pain Scale: 0-10 Numeric Is Patient Pain Free? Yes Yes Yes WC - Visit Discharge Discharge Condition Stable Stable Ambulatory Status Wheelchair Transportation Private Auto Private Auto Accompanied by aid CAREGIVER Medication Reconcilliation completed & Yes provided to patient/care provider Clinical Summary of Care Provided Yes 05/30/22 11:44 Wound Care Center Nurse 3 #5 RIGHT LATERAL LE -Ulcer Cleansing -Foul Odor after Cleansing -Primary Dressing Applied -Other Dressing -Other Covering -Mepilex Border #4 LEFT POSTERIOR ANKLE -Primary Dressing Applied -Other Dressing -Mepilex Border #2 sacral -Ulcer Cleansing -Primary Dressing Applied -Aquacel Extra -Aquacel AG 4x4 -Mepilex Border #1 R buttock -Ulcer Cleansing Rinsed/ Irrigated with Saline -Foul Odor after Cleansing -Negative Pressure Wound Therapy N/A -Primary Dressing Applied Aquacel AG 4x4, Mepilex Border -Other Dressing DRSG PER [place] SUPERVISOR COLOR MAKING -Other Covering MEPILEX BORDER TO RLE ALSO TO PAD/PROTECT -Aquacel AG 4x4 1 -Mepilex Border 2 Treatment Response Procedure Tolerated Well Pain Scale: 0-10 Numeric Is Patient Pain Free? Yes WC - Visit Discharge Discharge Condition Stable Ambulatory Status Wheelchair Transportation Private Auto Accompanied by CAREGIVER Medication Reconcilliation completed & provided to patient/care provider Clinical Summary of Care Provided Assessment/Plan Assessment/Plan (1) Decubitus ulcer of right leg, stage 2: CODE(S): L89.892 - Pressure ulcer of other site, stage 2 PLAN: Pad and protect (2) Blister (nonthermal), left ankle, initial encounter: CODE(S): S90.522A - Blister (nonthermal), left ankle, initial encounter PLAN: Pad and protect (3) Decubitus ulcer of coccyx, stage 2: CODE(S): L89.152 - Pressure ulcer of sacral region, stage 2 PLAN: Apply Aquacel extra to wound base cover with absorbent dressing 2 times a day Follow-up in 2 week Continue drinking protein drinks 3 times a day
== END 2022-06-08 23:59 | disposition home or self-care (01) ==
LOC: WC 10:45
PROVIDERS: PCP Internal Medicine; Visit Provider Nurse Practitioner
DX: E10.621 Type 1 diabetes mellitus with foot ulcer (principal); L89.313 Pressure ulcer of right buttock, stage 3; L89.153 Pressure ulcer of sacral region, stage 3; Q05.7 Lumbar spina bifida without hydrocephalus; S90.522A Blister (nonthermal), left ankle, initial encounter
CPT/HCPCS: 11042; 11045

== ENCOUNTER 2022-06-20 11:00 | Outpatient (RCR) | payer MEDICARE, MEDICAID, SELFPAY ==
[2022-06-09 01:45] VITALS: BP 122/62; PULSE 102; RESP 16; TEMP 36.1; BMI 27.4
[2022-06-13 11:03] VITALS: BP 121/61; PULSE 125; RESP 18; TEMP 36.5; BMI 27.4
--- NOTE | 2022-06-13 12:05 | PCM.WC.PN ---
History of Present Illness Date of Service: 06/13/22 Chief Complaint: Follow-up right buttocks wound History of Wound: Ms. Walker is a very pleasant 42-year-old with a history of spina bifida with history of recurrent decubitus ulcers. Has been following up here for right buttock ulcer which opened up months ago. Prior to her initial visit here, had been following up at [place] and had some point had a flap closure. Moved here to be closer with family. Has had 1 application of epi fix so far however unfortunately this did not stay on. History of insulin-dependent diabetes mellitus. She states that her blood readings are all over the place. She reports compliance with her medications. She feels well at this time and denies chills, fever, nausea, vomiting or change in bowel habit. Progress of Wound: Wound measures slightly smaller doing well. May try using Silvana on her to keep infection down and see if we get a better response. Patient's legs are doing better and no sign of any kind of redness or pressure ulcers. Home health care taking good care of her doing good on the dressing changes Subjective Subjective Patient seems to be getting accustomed to home health care and doing better Objective Data Objective Data Measurements are slightly smaller we will try Silvana this week Vital Signs: Vital Signs Temp Pulse Resp BP 97.7 F L 125 H 18 121/61 H 06/13/22 11:03 06/13/22 11:03 06/13/22 11:03 06/13/22 11:03 Weight: 90 lb Body Mass Index (BMI) 27.4 Lab / Micro Data Attestation: I reviewed the patient's lab results. Physical Exam Const alert, oriented x3 and no apparent distress General Appearance: cooperative and well kempt HEENT normocephalic, head/scalp atraumatic and hearing grossly normal bilaterally Eyes General Eye: normal appearance of both eyes Neck full ROM and supple General: normal visual inspection Resp normal respiratory effort Effort and Inspection: able to speak in complete sentences Extremity no clubbing, cyanosis or edema Skin Wounds: wounds noted Neuro oriented x3 and CN's II-XII intact bilaterally Psych mental status grossly normal, thought process normal, cooperative and affect normal Appearance: grossly normal Debridement Note Debridement Note Post-Debridement Measurements and Additional Note: Post-Debridement Measurements/Treatment WC - Nurse 1 - General Ulcer Assessment Start: 06/13/22 10:59 Freq: Status: Active Protocol: VIJAYA.JOVANY Activity Type Activity Date Activity User E-sign Co-sign Detail Recorded Client Recorded Date Recorded By Document 06/13/22 11:03 [id number] 06/13/22 11:11 06/13/22 11:03 - Today's Visit Information Type of service Follow-up Visit (Physician/FISCAL SERVICES MANAGER ) Arrival Mode Wheelchair Transfer Assistance Manual Patient Identification Verified (Name & Yes ) Patient Requires Transmission-Based No Precautions Safety Precautions NA Height and Weight Body Mass Index (BMI) 27.4 BMI Classification Overweight Vital Signs Temperature (97.8 F-99.1 F) 97.7 F L Temperature Source Temporal Pulse Rate (60-100) 125 H Respiratory Rate (12-18) 18 Blood Pressure (90/60-120/80) 121/61 H Blood Pressure Mean (mm Hg) 81 History Since Last Visit- (Skip if this is Patient's initial visit) Have you changed medications since your No last visit? Any new allergies or adverse reactions No Had a fall/change in ADL's that may No increase risk of falls Signs or symptoms of abuse and/or No neglect since last visit Have you been in the hospital since your No last visit? Has dressing in place as prescribed Yes Has compression in place as prescribed N/A Has offloadiing in place as prescribed N/A Experienced any changes in pain level or No management Pain Scale: 0-10 Numeric Is Patient Pain Free? Yes - Nurse 1 - General Ulcer Measurement Start: 06/13/22 10:59 Freq: Status: Active Protocol: Activity Type Activity Date Activity User E-sign Co-sign Detail Recorded Client Recorded Date Recorded By Document 06/13/22 11:03 [id number] 06/13/22 11:11 06/13/22 11:03 Wound Center Nurse 1 #1 R buttock -Combined with other wound No -Current Size (cm) - Length 3.0 -Current Size (cm) - Width 1.5 -Current Size (cm) - Depth 0.5 -Total Square Cm 4.50 -Photo Taken No -Epithelialization Medium 34-66% -Tunneling No -Undermining/Tunneling No -Circular Undermining No -Exudate Amt Medium -Exudate Type Serosanguineous -Granulation Amt Medium (34-66%) -Granulation Quality [place] -Slough/Fibrin No -Necrosis Amt Medium (34-66%) -Necrotic Tissue Type Adherent Slough -Texture (Cassandra-wound Skin Appearance) No Abnormality -Moisture (Cassandra-wound Skin Appearance) No Abnormality -Color (Cassandra-wound Skin Appearance) No Abnormality -Temperature (Cassandra-wound Skin No Abnormality Appearance) (Pt Warm) -Ulcer Cleansing Rinsed/ Irrigated with Saline -Foul Odor after Cleansing No WC - Nurse 2 - General Ulcer CM Notes Start: 06/13/22 10:59 Freq: Status: Active Protocol: Activity Type Activity Date Activity User E-sign Co-sign Detail Recorded Client Recorded Date Recorded By Document 06/13/22 11:19 MW [id number] 06/13/22 11:22 MW 06/13/22 11:19 Wound Center Nurse 2 -Time 11:20 -Correct Patient Yes -Correct Side, Site, Position Yes -Correct Procedure Yes -Procedure Performed Yes -Type of Procedure Debridement -Clinical Debridement Subcutaneous -Tissue Removed Subcutaneous -Post Debridement (cm) - Length 3.2 -Post Debridement (cm) - Width 2.0 -Post Debridement (cm) - Depth 0.5 -Total Square (Post) (cm) 6.40 -Area of Debridement (cm) - Length 3.2 -Area of Debridement (cm) - Width 2.0 -Total Square (Area) (cm) 6.40 -Tunneling No -Undermining/Tunneling No -Circular Undermining No -Wound/Ulcer Outcome Not Healed -Ulcer Cleansing Rinsed/ Irrigated with Saline -Foul Odor after Cleansing No -Bioengineered Tissue No -Bleeding Controlled with Pressure -Treatment Response Procedure Tolerated Well -Offloading No -Debridement - Subq, 1st 20sq cm Yes Pain Scale: 0-10 Numeric Is Patient Pain Free? Yes WC - Nurse 3 - General Ulcer D/C NN Start: 06/13/22 10:59 Freq: Status: Active Protocol: Activity Type Activity Date Activity User E-sign Co-sign Detail Recorded Client Recorded Date Recorded By Document 06/13/22 11:34 [facility] [id number] 06/13/22 11:35 [facility] 06/13/22 11:34 Wound Care Center Nurse 3 #1 R buttock -Ulcer Cleansing Rinsed/ Irrigated with Saline -Foul Odor after Cleansing No -Primary Dressing Applied Aquacel Extra, Promogran Silvana Matter, Mepilex Border -Other Dressing aquacel xtra and mepilex to sacral area -Aquacel Extra 1 -Mepilex Border 2 -Promogran Silvana Matter 1 Treatment Response Procedure Tolerated Well Pain Scale: 0-10 Numeric Is Patient Pain Free? Yes WC - Visit Discharge Discharge Condition Stable Ambulatory Status Wheelchair Transportation Private Auto Accompanied by caregiver Assessment/Plan Assessment/Plan (1) Decubitus ulcer of right leg, stage 2: CODE(S): L89.892 - Pressure ulcer of other site, stage 2 PLAN: Pad and protect (2) Blister (nonthermal), left ankle, initial encounter: CODE(S): S90.522A - Blister (nonthermal), left ankle, initial encounter PLAN: Pad and protect (3) Decubitus ulcer of coccyx, stage 2: CODE(S): L89.152 - Pressure ulcer of sacral region, stage 2 PLAN: Apply Aquacel extra to wound base cover with absorbent dressing 2 times a day Follow-up in 2 week Continue drinking protein drinks 3 times a day (4) Decubitus ulcer of right buttock, stage 3: CODE(S): L89.313 - Pressure ulcer of right buttock, stage 3 PLAN: Wash the area with antibacterial soap and pack with Silvana cover with gauze and tape or absorbent dressing twice daily Follow-up in 1 week
[2022-06-20 11:00] VITALS: BP 115/64; PULSE 120; RESP 20; TEMP 36.8; BMI 27.4
--- NOTE | 2022-06-20 13:03 | PN.PCM_ITS ---
History of Present Illness Date of Service: 06/20/22 Chief Complaint: Follow-up right buttocks wound History of Wound: Ms. Walker is a very pleasant 42-year-old with a history of spina bifida with history of recurrent decubitus ulcers. Has been following up here for right buttock ulcer which opened up months ago. Prior to her initial visit here, had been following up at [place] and had some point had a flap closure. Moved here to be closer with family. Has had 1 application of epi fix so far however unfortunately this did not stay on. History of insulin- dependent diabetes mellitus. She states that her blood readings are all over the place. She reports compliance with her medications. She feels well at this time and denies chills, fever, nausea, vomiting or change in bowel habit. Progress of Wound: Wound measures slightly smaller doing well. May try using Silvana on her to keep infection down and see if we get a better response. Patient's legs are doing better and no sign of any kind of redness or pressure ulcers. Home health care taking good care of her doing good on the dressing changes Subjective Subjective Patient is pleased so far with outcomes Objective Data Objective Data The right buttocks pressure ulcer is not worsening it still shallow it is improving somewhat very slow. Patient is still not real good about offloading Vital Signs: Vital Signs Temp Pulse Resp BP 98.3 F 120 H 20 H 115/64 06/20/22 11:00 06/20/22 11:00 06/20/22 11:00 06/20/22 11:00 Weight: 90 lb Body Mass Index (BMI) 27.4 Lab / Micro Data Attestation: I reviewed the patient's lab results. Physical Exam Const alert, oriented x3 and no apparent distress General Appearance: cooperative and well kempt HEENT normocephalic, head/scalp atraumatic and hearing grossly normal bilaterally Eyes General Eye: normal appearance of both eyes Neck full ROM and supple General: normal visual inspection Resp normal respiratory effort Effort and Inspection: able to speak in complete sentences Extremity no clubbing, cyanosis or edema Skin Wounds: wounds noted Neuro oriented x3 and CN's II-XII intact bilaterally Psych mental status grossly normal, thought process normal, cooperative and affect normal Appearance: grossly normal Debridement Note Debridement Note Wound debrided: Right buttocks decubitus ulcer Wound Grade/Stage: Stage III Type of Debridement: Excisional debridement Anesthesia Used: 5% Lidocaine Gel Depth: Down to and including healthy tissue Percentage of wound debrided: 100 Instrument Used: 7mm curette Tissue Removed: Fibrin Severity: Fat Layer Exposed Amount of bleeding with debridement: Mild Bleeding Controlled with: Compression and gauze Patient tolerated procedure: Patient tolerated procedure well Post-Debridement Measurements and Additional Note: Post-Debridement Measurements/Treatment - Nurse 1 - General Ulcer Assessment Start: 06/13/22 10:59 Freq: Status: Active Protocol: KRISTIN Activity Type Activity Date Activity User E-sign Co-sign Detail Recorded Client Recorded Date Recorded By Document 06/13/22 11:03 PL [id number] 06/13/22 11:11 PL Document 06/20/22 11:00 DL [id number] 06/20/22 11:13 DL 06/13/22 06/20/22 11:03 11:00 - Today's Visit Information Type of service Follow-up Visit Follow-up Visit (Physician/AUTO SERVICE STATION ATTENDANT (Physician/AUTO SERVICE STATION ATTENDANT ) ) Arrival Mode Wheelchair Wheelchair Transfer Assistance Manual Manual Transfer Assist (Other) x2 Patient Identification Verified (Name & Yes Yes ) Patient Requires Transmission-Based No No Precautions Safety Precautions NA Finger Stick Blood Sugar(mg/dl) (if 342 indicated): Blood Sugar Stated by Patient Height and Weight Body Mass Index (BMI) 27.4 27.4 BMI Classification Overweight Overweight Vital Signs Temperature (97.8 F-99.1 F) 97.7 F L 98.3 F Temperature Source Temporal Temporal Pulse Rate (60-100) 125 H 120 H Respiratory Rate (12-18) 18 20 H Respiratory rate source Observation Blood Pressure (90/60-120/80) 121/61 H 115/64 Blood Pressure Mean (mm Hg) 81 81 History Since Last Visit- (Skip if this is Patient's initial visit) Have you changed medications since your No No last visit? Any new allergies or adverse reactions No No Had a fall/change in ADL's that may No No increase risk of falls Signs or symptoms of abuse and/or No No neglect since last visit Have you been in the hospital since your No No last visit? Has dressing in place as prescribed Yes Yes Has compression in place as prescribed N/A N/A Has offloadiing in place as prescribed N/A Yes Experienced any changes in pain level or No No management Pain Scale: 0-10 Numeric Is Patient Pain Free? Yes Yes WC - Nurse 1 - General Ulcer Measurement Start: 06/13/22 10:59 Freq: Status: Active Protocol: Activity Type Activity Date Activity User E-sign Co-sign Detail Recorded Client Recorded Date Recorded By Document 06/13/22 11:03 PL [id number] 06/13/22 11:11 PL Document 06/20/22 11:00 DL [id number] 06/20/22 11:13 DL 06/13/22 06/20/22 11:03 11:00 Wound Center Nurse 1 #2 sacral -Combined with other wound No -Current Size (cm) - Length 3 -Current Size (cm) - Width 1.8 -Current Size (cm) - Depth 0.1 -Total Square Cm 5.4 -Photo Taken Yes -Tunneling No -Undermining/Tunneling No -Circular Undermining No -Exudate Amt Small -Exudate Type Serosanguineous -Wound Margin Distinct, Outline Attached -Granulation Amt Medium (34-66%) -Granulation Quality [place] -Slough/Fibrin Yes -Necrosis Amt Large (67-100%) -Necrotic Tissue Type Adherent Slough -Structure Exposed N/A -Texture (Cassandra-wound Skin Appearance) Assessed -Moisture (Cassandra-wound Skin Appearance) Assessed -Color (Cassandra-wound Skin Appearance) Assessed -Temperature (Cassandra-wound Skin No Abnormality Appearance) (Pt Warm) -Tenderness on Palpation (Cassandra-wound No Skin Appearance) -Ulcer Cleansing Wound Cleanser -Foul Odor after Cleansing No -Anesthetic Used 5% Lidocaine Gel #1 R buttock -Combined with other wound No No -Current Size (cm) - Length 3.0 3 -Current Size (cm) - Width 1.5 2.5 -Current Size (cm) - Depth 0.5 1.1 -Total Square Cm 4.50 7.5 -Photo Taken No Yes -Epithelialization Medium 34-66% -Tunneling No No -Undermining/Tunneling No No -Circular Undermining No No -Exudate Amt Medium Large -Exudate Type Serosanguineous Serosanguineous -Wound Margin Thickened & Rolled Under -Granulation Amt Medium (34-66%) Large (67-100%) -Granulation Quality [place] Red -Slough/Fibrin No Yes -Necrosis Amt Medium (34-66%) Medium (34-66%) -Necrotic Tissue Type Adherent Slough Adherent Slough -Structure Exposed N/A -Texture (Cassandra-wound Skin Appearance) No Abnormality Assessed -Moisture (Cassandra-wound Skin Appearance) No Abnormality Assessed -Color (Cassandra-wound Skin Appearance) No Abnormality Assessed -Temperature (Cassandra-wound Skin No Abnormality No Abnormality Appearance) (Pt Warm) (Pt Warm) -Tenderness on Palpation (Cassandra-wound No Skin Appearance) -Ulcer Cleansing Rinsed/ Wound Cleanser Irrigated with Saline -Foul Odor after Cleansing No No -Anesthetic Used 5% Lidocaine Gel WC - Nurse 2 - General Ulcer CM Notes Start: 06/13/22 10:59 Freq: Status: Active Protocol: Activity Type Activity Date Activity User E-sign Co-sign Detail Recorded Client Recorded Date Recorded By Document 06/13/22 11:19 MW [id number] 06/13/22 11:22 MW Document 06/20/22 11:43 MW [id number] 06/20/22 11:46 MW 06/13/22 06/20/22 11:19 11:43 Wound Center Nurse 2 #2 sacral -Time 11:44 -Correct Patient Yes -Correct Side, Site, Position Yes -Correct Procedure Yes -Procedure Performed No -Tunneling No -Undermining/Tunneling No -Circular Undermining No -Wound/Ulcer Outcome Not Healed #1 R buttock -Time 11:20 11:44 -Correct Patient Yes Yes -Correct Side, Site, Position Yes Yes -Correct Procedure Yes Yes -Procedure Performed Yes Yes -Type of Procedure Debridement Debridement -Clinical Debridement Subcutaneous Subcutaneous -Tissue Removed Subcutaneous Subcutaneous -Post Debridement (cm) - Length 3.2 3.0 -Post Debridement (cm) - Width 2.0 2.5 -Post Debridement (cm) - Depth 0.5 0.5 -Total Square (Post) (cm) 6.40 7.50 -Area of Debridement (cm) - Length 3.2 3.0 -Area of Debridement (cm) - Width 2.0 2.5 -Total Square (Area) (cm) 6.40 7.50 -Tunneling No No -Undermining/Tunneling No No -Circular Undermining No No -Wound/Ulcer Outcome Not Healed Not Healed -Ulcer Cleansing Rinsed/ Rinsed/ Irrigated with Irrigated with Saline Saline -Foul Odor after Cleansing No No -Bioengineered Tissue No No -Bleeding Controlled with Pressure Pressure -Treatment Response Procedure Procedure Tolerated Well Tolerated Well -Offloading No No -Debridement - Subq, 1st 20sq cm Yes Yes Pain Scale: 0-10 Numeric Is Patient Pain Free? Yes Yes - Nurse 3 - General Ulcer D/C NN Start: 06/13/22 10:59 Freq: Status: Active Protocol: Activity Type Activity Date Activity User E-sign Co-sign Detail Recorded Client Recorded Date Recorded By Document 06/13/22 11:34 BM [id number] 06/13/22 11:35 BM Document 06/20/22 11:50 DL [id number] 06/20/22 11:54 DL 06/13/22 06/20/22 11:34 11:50 Wound Care Center Nurse 3 #2 sacral -Ulcer Cleansing Rinsed/ Irrigated with Saline -Foul Odor after Cleansing No -Primary Dressing Applied Aquacel Extra, Mepilex Border -Aquacel Extra 1 -Mepilex Border 1 #1 R buttock -Ulcer Cleansing Rinsed/ Rinsed/ Irrigated with Irrigated with Saline Saline -Foul Odor after Cleansing No No -Primary Dressing Applied Aquacel Extra, Promogran Promogran Silvana Matter, Silvana Matter, Mepilex Border Mepilex Border -Other Dressing aquacel xtra and mepilex to sacral area -Aquacel Extra 1 -Mepilex Border 2 1 -Promogran Silvana Matter 1 1 Treatment Response Procedure Procedure Tolerated Well Tolerated Well Pain Scale: 0-10 Numeric Is Patient Pain Free? Yes Yes - Visit Discharge Discharge Condition Stable Stable Ambulatory Status Wheelchair Wheelchair Transportation Private Auto Private Auto Accompanied by caregiver Facility Type Home Health Orders Sent Yes Assessment/Plan Assessment/Plan (1) Decubitus ulcer of right leg, stage 2: CODE(S): L89.892 - Pressure ulcer of other site, stage 2 PLAN: Pad and protect (2) Blister (nonthermal), left ankle, initial encounter: CODE(S): S90.522A - Blister (nonthermal), left ankle, initial encounter PLAN: Pad and protect (3) Decubitus ulcer of coccyx, stage 2: CODE(S): L89.152 - Pressure ulcer of sacral region, stage 2 PLAN: Apply Aquacel extra to wound base cover with absorbent dressing 2 times a day Follow-up in 2 week Continue drinking protein drinks 3 times a day (4) Decubitus ulcer of right buttock, stage 3: CODE(S): L89.313 - Pressure ulcer of right buttock, stage 3 PLAN: Wash the area with antibacterial soap and pack with Silvana cover with gauze and tape or absorbent dressing daily Follow-up in 1 week
== END 2022-07-08 23:59 | disposition home or self-care (01) ==
LOC: WC 11:00
PROVIDERS: PCP Internal Medicine; Visit Provider Nurse Practitioner
DX: E10.621 Type 1 diabetes mellitus with foot ulcer (principal); L89.313 Pressure ulcer of right buttock, stage 3; L89.152 Pressure ulcer of sacral region, stage 2; L89.892 Pressure ulcer of other site, stage 2; Q05.7 Lumbar spina bifida without hydrocephalus
CPT/HCPCS: 11042

== ENCOUNTER → 2022-06-21 | Outpatient (CLI) | payer MEDICARE, MEDICAID, SELFPAY ==
[2022-06-21 15:20] LABS: Absolute Lymphocyte Count 1.49 X10^3/uL (0.83-4.51); Absolute Neutrophil Count 16.5 X10^3/uL (2.0-7.7); Basophil# 0.06 X10^3/uL; Basophil% 0.3 % (0-1); Eosinophil# 0.11 X10^3/uL; Eosinophils% 0.6 % (0-5); Hematocrit 28.4 % (37-47); Hemoglobin 8.1 g/dL (12.0-15.0); Lymphocyte # 1.49 X10^3/ul (0.83-4.51); Lymphocyte % 7.7 % (19-41); Mean Corp Hgb Conc 28.5 g/dL (32-36); Mean Corpuscular Hgb 22.5 pg (27.0-32.0); Mean Corpuscular Volume 78.9 fL (81-99); Mean Platelet Vol. 8.9 fl (6.2-12.0); Monocyte# 1.02 X10^3/uL; Monocyte% 5.3 % (0-10); NRBC Flagged by Analyzer 0 % (0-5); Neutrophil # 16.49 X10^3/uL (2.7-7.7); Neutrophil % 85.2 % (47-70); Platelet Count 522 K/mm3 (150-450); RBC Distribution Width CV 16.1 % (11.6-14.6); RBC Distribution Width SD 46.4 fl (35.1-43.9); White Blood Count 19.3 K/mm3 (4.4-11.0)
[2022-06-21 16:07] LABS: ALB/GLOB Ratio 0.4 RATIO (0.9-2.4); AST(SGOT) 9 U/L (15-37); Alanine Aminotransfer ALT/SGPT 24 U/L (13-56); Albumin, Serum 2.4 g/dL (3.2-5.0); Alkaline Phosphatase 194 U/L (45-117); Anion Gap 1 (5-15); BUN 15 mg/dL (7-18); BUN/Creat Ratio 18.6 RATIO (10-20); Chloride 104 mmol/L (98-107); Creatinine, Serum 0.81 mg/dL (0.55-1.02); EST Glomerular Filtration Rate 82 mL/min (>60); Est Glom Filt Rate - Afr Amer 100 mL/min (>60); Globulin 5.4 g/dL (2.2-4.2); Glucose 100 mg/dL (74-106); Potassium 3.8 mmol/L (3.5-5.1); Protein, Total 7.8 g/dL (6.4-8.2); Sodium Level 136 mmol/L (136-145); T4 Free Direct 1.25 ng/dL (0.76-1.46); Thyroid Stim Hormone (TSH) 2.56 uIU/mL (0.358-3.74)
[2022-06-22 13:48] LABS: Vitamin B12 788 pg/mL (211-911)
[2022-06-22 13:52] LABS: Ferritin 415 ng/mL (8-252); Iron 12 ug/dL (50-170); Iron Binding Capacity,Total 136 ug/dL (250-450); LDH 243 U/L (84-246)
== END | disposition home or self-care (01) ==
LOC: BIMLAB 14:20
PROVIDERS: PCP Internal Medicine; Visit Provider Internal Medicine
DX: F32.A Depression, unspecified (principal); Q05.7 Lumbar spina bifida without hydrocephalus; F41.9 Anxiety disorder, unspecified; D64.9 Anemia, unspecified; D72.829 Elevated white blood cell count, unspecified
CPT/HCPCS: 36415; 80053; 82607; 82728; 83540; 83550; 83615; 84439; 84443; 85025

== ENCOUNTER 2022-06-30 14:48 | Emergency (ER) | payer MEDICARE, MEDICAID, SELFPAY ==
[2022-06-30 14:48] VITALS: BP 132/71; PULSE 110; RESP 16; TEMP 36.3; O2SAT 99
[2022-06-30 14:51] VITALS: BP 128/72; PULSE 69; RESP 16; TEMP 36.7; O2SAT 98; BMI 30.1
[2022-06-30 15:51] VITALS: BP 124/81; PULSE 74; RESP 18; TEMP 36.7; O2SAT 99
[2022-06-30 16:00] VITALS: BP 122/83; PULSE 71; RESP 16; TEMP 36.7; O2SAT 98
--- NOTE | 2022-06-30 16:48 | EX.ED.DYSGE1 ---
HPI <SANDY Martinez - Last Filed: 06/30/22 18:01> History of Present Illness Chief Complaint: Wound Narrative Narrative: Patient presenting today with a blister on her right foot that she noticed right after getting out of the shower this afternoon. She states that the water was not too hot and she did not burn herself. She has a history of blisters in various areas on the right side of her body that have occurred over the past month. She does currently follow with wound care but nobody has given her an answer as to why she has these blisters. Patient had a pressure sore on her right hip that did turn into MRSA a few months ago. PMH includes diabetes and spina bifida. She denies any fever, chills, purulent discharge from the area. PFSH <SANDY Martinez - Last Filed: 06/30/22 18:01> PFSH Medical History Anemia Anxiety and depression Buttock wound Cancer Decubitus ulcer of coccyx, stage 2 Decubitus ulcer of right buttock, stage 3 Difficulty transferring Health care maintenance High cholesterol Insulin dependent diabetes mellitus Leukocytosis Spina bifida of lumbar spine Type 1 diabetes mellitus Vertigo Home Medications atorvastatin 20 mg tablet 20 mg PO DAILY 04/20/22 [History Last Taken Unknown] insulin glargine 100 unit/mL (3 mL) subcutaneous pen (Lantus Solostar U-100 Insulin) 20 unit subcut QPM 04/20/22 [History Last Taken Unknown] blood sugar diagnostic (OneTouch Verio test strips) #120 ea 05/31/22 [Rx Last Taken Unknown] insulin aspart U-100 100 unit/mL subcutaneous solution (Novolog U-100 Insulin aspart) 6 unit (0.06 mL) subcut TIDWMEAL #10 mL 05/31/22 [Rx Last Taken Unknown] fluoxetine 20 mg capsule 20 mg PO DAILY #60 caps 06/21/22 [Rx Last Taken Unknown] ferrous sulfate 325 mg (65 mg iron) tablet 325 mg PO DAILY #90 tabs 06/22/22 [Rx Last Taken Unknown] Allergy/AdvReac Type Severity Reaction Status Date / Time Latex, Natural Rubber Allergy Hives Verified 06/30/22 16:04 Family History Other Cancer Diabetes FH: defects Surgical History History of brain surgery Social History Smoking Status: Never smoker alcohol intake: current alcohol intake frequency: holidays/special occasions only Alcohol type: wine substance use type: does not use do you feel safe at home: Yes ROS <SANDY Martinez - Last Filed: 06/30/22 18:01> ROS ED Constitutional Constitutional ED: Denies chills or fever(s) Cardiovascular Cardiovascular: Denies chest pain Respiratory/Chest Respiratory/Chest: Denies cough or dyspnea Gastrointestinal Gastrointestinal: Denies abdominal pain, nausea or vomiting Musculoskeletal Musculoskeletal: Denies arthralgias or myalgias Integumentary Reports new lesions; Denies abscess or rash Neurologic Neurologic: Denies confusion, dizziness or paresthesias Psychiatric Psychiatric: Denies anxiety, depression, suicidal ideation or suicidal thoughts EXAM <SANDY Martinez - Last Filed: 06/30/22 18:01> Physical Exam Const Vital Signs: 06/30/22 14:48 06/30/22 14:51 06/30/22 15:51 Temperature 97.4 F L 98.1 F 98.0 F Temperature Source Temporal Temporal Temporal Pulse Rate 110 H 69 74 Respiratory Rate 16 16 18 Blood Pressure 132/71 H 128/72 H 124/81 H Blood Pressure Mean 91 90 95 Pulse Ox 99 98 99 Oxygen Delivery Method Room Air Room Air Room Air 06/30/22 16:00 06/30/22 17:07 06/30/22 17:00 Temperature 98.1 F 98.3 F 98.0 F Temperature Source Temporal Temporal Pulse Rate 71 73 76 Respiratory Rate 16 16 18 Blood Pressure 122/83 H 124/79 H 126/80 H Blood Pressure Mean 96 95 Pulse Ox 98 99 99 Oxygen Delivery Method Room Air Room Air Positive well nourished, well developed and no apparent distress General Appearance ED: well developed HEENT Reports normocephalic and head/scalp atraumatic Mouth ED: Yes moist mucous membranes normal Eyes PERRL and EOMs intact bilaterally Neck full ROM and supple Chest Wall inspection of chest normal Resp normal respiratory effort and clear to auscultation bilaterally Cardio regular rate and regular rhythm GI soft to palpation, non-tender, non-distended and no masses Back/Spine normal ROM and normal to inspection Extremity normal to inspection and full ROM Extremity Narrative: Large blister on the dorsum of patient's right foot just below the MTP joint that does wrap around to the bottom of the foot. Blister to the fourth R toe. No erythema or purulent discharge. Neuro oriented x3, CN's II-XII intact bilaterally, moves all extremities, no focal motor deficits and no sensory deficits noted Sensorium / Orientation: awake and alert Psych mental status grossly normal and thought process normal Skin Skin Narrative: Large blister on the dorsum of patient's right foot just below the MTP joint that does wrap around to the bottom of the foot. Blister to the fourth R toe. No erythema or purulent discharge. <Dr. Royce Mcdonough MD - Last Filed: 06/30/22 17:03> Physical Exam Const Vital Signs: 06/30/22 14:48 06/30/22 14:51 06/30/22 15:51 Temperature 97.4 F L 98.1 F 98.0 F Temperature Source Temporal Temporal Temporal Pulse Rate 110 H 69 74 Respiratory Rate 16 16 18 Blood Pressure 132/71 H 128/72 H 124/81 H Blood Pressure Mean 91 90 95 Pulse Ox 99 98 99 Oxygen Delivery Method Room Air Room Air Room Air 06/30/22 16:00 06/30/22 17:07 06/30/22 17:00 Temperature 98.1 F 98.3 F 98.0 F Temperature Source Temporal Temporal Pulse Rate 71 73 76 Respiratory Rate 16 16 18 Blood Pressure 122/83 H 124/79 H 126/80 H Blood Pressure Mean 96 95 Pulse Ox 98 99 99 Oxygen Delivery Method Room Air Room Air [facility] <SANDY Martinez - Last Filed: 06/30/22 18:01> [facility] Narrative Medical decision making narrative: Patient presents today with a blister to the dorsum of her right foot just below the MTP joint that wraps around to the bottom of her foot. Blister to the fourth R toe as well. No erythema or purulent discharge. Patient first noticed this today while getting out of the shower. She did not burn herself in the shower. She has had similar blisters in various areas on the right side of her body that have occurred about 5 times in the past month. She states that this one is similar. She has never seen dermatology for this but is receiving wound care due to having a sore that progressed to MRSA. Assistant Accounting Manager Dr. 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 She would like patient to follow-up with her in the office next week. She does not recommend putting patient on any antibiotics as they are unnecessary for this. She recommends applying clean dry dressings to the area. This is all been relayed to patient and she is understanding. She has been given a referral with Dr. Cartagena. Dressing treatments have been applied here. She has been educated on signs of infection to look out for such as increased redness, purulent discharge, and fever. She will be discharged home in stable condition and is comfortable with plan. <Dr. Royce Mcdonough MD - Last Filed: 06/30/22 17:03> [facility] Treatment and Re-Evaluation :: I have personally performed a face to face assessment of the patient and have reviewed the SPRING Note. I performed a substantive portion of the visit including all aspects of the following. My gomez findings include: History: Patient presents with blister formation on her right distal foot. She states this just happened today. She was in the shower and when she got out developed. The water was not too hot as she always checks it. She does have very creased sensation in her feet and the legs but not her arms and hands. She has had the same thing happen about 5 or 6 times since February 2022. She did have MRSA once but this was a sacral wound not in 1 of these blisters. She states she does not feel sick. She has never gotten ill with these. She has not yet seen dermatology. They have always been on her right lower extremity. Exam: Patient awake alert very nontoxic. Good informant. She takes very good care of herself. Focal and pertinent exam reveals some very thin walled blisters. Some of these are already opened and drained. There is still one currently on the dorsum and medial aspect of her foot. The skin just nests to these areas looks totally normal. It is not warm. There is no lymphangitic streaking. Medical Decision Making: With this recurrent episode, decreased sensation and being diabetic we did contact credit reporter, Dr. Cartagena. 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 This would be the most common thing considering her age location and her medical illness. Treatment for this is really local wound care. Not steroids or antibiotics. Dr. Cartagena will follow her up this week. She stated the patient should call the office Saturday morning and tell them that she was to get a appointment that week. Discharge Plan Triage Chief Complaint: Wound ED Midlevel Provider: Luz Marina Mora ED Provider: Royce Mcdonough Dx/Rx/DC Orders Clinical Impression: Bullosis diabeticorum, Bullous eruption, History of diabetes mellitus, type I Instructions: ED Wound Care Prescriptions: No Action insulin glargine [Lantus Solostar U-100 Insulin] 100 unit/mL (3 mL) insulin pen 20 unit subcut QPM atorvastatin 20 mg tablet 20 mg PO DAILY fluoxetine 20 mg capsule 20 mg PO DAILY Qty: 60 1RF insulin aspart U-100 [Novolog U-100 Insulin aspart] 100 unit/mL solution 6 unit subcut TIDWMEAL MDD 30 Qty: 10 5RF Rx Instructions: +[facility] (DME) OneTouch Verio test strips Strip See Rx Instructions .Route Qty: 120 5RF Rx Instructions: 4x/day ferrous sulfate 325 mg (65 mg iron) tablet 325 mg PO DAILY Qty: 90 3RF Primary Care Provider: Cosmo Smith Referrals: Cosmo Smith MD [Primary Care Provider] - Krystle Cartagena MD [Non-Staff] - 3-5 Days Activity Restrictions/Additional Instructions: You likely have a diabetic bullous disease. Please call to arrange a follow-up with the credit reporter we have referred you to on Saturday. Return for any signs of infection such as fever, puslike discharge, increased redness, or swelling to the area. Disposition Disposition: Home, Self Care Discharge Date/Time: 06/30/22 17:11
[2022-06-30 17:00] VITALS: BP 126/80; PULSE 76; RESP 18; TEMP 36.7; O2SAT 99
[2022-06-30 17:07] VITALS: BP 124/79; PULSE 73; RESP 16; TEMP 36.8; O2SAT 99
== END 2022-06-30 17:11 | disposition home or self-care (01) ==
PROVIDERS: Emergency Provider Emergency Medicine; PCP Internal Medicine; Visit Provider Emergency Medicine
DX: S91.301A Unspecified open wound, right foot, initial encounter (principal); E10.9 Type 1 diabetes mellitus without complications; Z79.4 Long term (current) use of insulin; X58.XXXA Exposure to other specified factors, initial encounter
CPT/HCPCS: 99283

== ENCOUNTER 2022-07-11 11:03 | Outpatient (RCR) | payer MEDICARE, MEDICAID, SELFPAY ==
[2022-07-09 00:33] VITALS: BP 115/64; PULSE 120; RESP 20; TEMP 36.8; BMI 27.4
[2022-07-11 11:21] VITALS: BMI 27.4
--- NOTE | 2022-07-11 12:12 | PN.PCM_ITS ---
History of Present Illness Date of Service: 07/11/22 Chief Complaint: Follow-up right buttocks wound History of Wound: Ms. Walker is a very pleasant 42-year-old with a history of spina bifida with history of recurrent decubitus ulcers. Has been following up here for right buttock ulcer which opened up months ago. Prior to her initial visit here, had been following up at [place] and had some point had a flap closure. Moved here to be closer with family. Has had 1 application of epi fix so far however unfortunately this did not stay on. History of insulin- dependent diabetes mellitus. She states that her blood readings are all over the place. She reports compliance with her medications. She feels well at this time and denies chills, fever, nausea, vomiting or change in bowel habit. Progress of Wound: Right buttocks wound has been about 3 weeks since last seen. Patient has been canceling because of psych reasons. Wound measurements are bigger depth is about the same. She still has home health that is helping more with dressing changes and activities of daily living Has developed some they think it is from her diabetes blistering on her feet and she is currently seeing a acquisition marketing manager for that Subjective Subjective Patient would like to come in every 2 weeks but I told her the reason its bigger is because you have not been coming in. Objective Data Objective Data Discussed with farm or ranch animal caretaker that the dressings have to be done twice a day rather than just once a day and that she needs to be seen weekly here. Sign of infection noted Vital Signs: Vital Signs Temp Pulse Resp BP 98.3 F 120 H 20 H 115/64 07/09/22 00:33 07/09/22 00:33 07/09/22 00:33 07/09/22 00:33 Weight: 90 lb Body Mass Index (BMI) 27.4 Lab / Micro Data Attestation: I reviewed the patient's lab results. Physical Exam Narrative ECOG 2-3, seen in a wheelchair Const alert, oriented x3 and no apparent distress General Appearance: well developed Nutritional Appearance: overweight HEENT Face and Sinus: normal facial exam Eyes General Eye: normal appearance of both eyes Neck no lymphadenopathy and no JVD Lymph Lymphatic: no lymphadenopathy noted Resp clear to auscultation bilaterally Cardio regular rate and regular rhythm Jugular Venous Distention: Negative for JVD GI soft to palpation, non-tender and non-distended; Negative for hepatosplenomegaly Back/Spine no thoracic nor lumbar tenderness Extremity General Extremity: Negative for clubbing or cyanosis Skin Skin Narrative: Wounds on buttock and right lower extremity were not examined Neuro oriented x3 and CN's II-XII intact bilaterally Coordination / Balance: [id number] test normal Speech: speech normal Gait (Neuro): unable to assess gait Psych mental status grossly normal Debridement Note Debridement Note Wound debrided: Right buttocks decubitus ulcer stage III Laterality: Right Wound Grade/Stage: Stage III Type of Debridement: Excisional debridement Anesthesia Used: 5% Lidocaine Gel Depth: Down to and including healthy tissue and in the subcutaneous layer Percentage of wound debrided: 100 Instrument Used: 7mm curette Tissue Removed: Fibrin Severity: Fat Layer Exposed Amount of bleeding with debridement: Mild Bleeding Controlled with: Compression and gauze Patient tolerated procedure: Patient tolerated procedure well Post-Debridement Measurements and Additional Note: Post-Debridement Measurements/Treatment WC - Nurse 1 - General Ulcer Assessment Start: 07/11/22 11:21 Freq: Status: Active Protocol: KRISTIN Activity Type Activity Date Activity User E-sign Co-sign Detail Recorded Client Recorded Date Recorded By Document 07/11/22 11:21 [id number] 07/11/22 11:36 07/11/22 11:21 Height and Weight Body Mass Index (BMI) 27.4 BMI Classification Overweight Pain Scale: 0-10 Numeric Is Patient Pain Free? Yes - Nurse 1 - General Ulcer Measurement Start: 07/11/22 11:21 Freq: Status: Active Protocol: Activity Type Activity Date Activity User E-sign Co-sign Detail Recorded Client Recorded Date Recorded By Document 07/11/22 11:21 [id number] 07/11/22 11:36 07/11/22 11:21 Wound Center Nurse 1 #2 sacral -Current Size (cm) - Length 3 -Current Size (cm) - Width 2 -Current Size (cm) - Depth 0.1 -Total Square Cm 6 -Photo Taken Yes -Tunneling No -Undermining/Tunneling No -Circular Undermining No -Exudate Amt Medium -Exudate Type Serosanguineous -Wound Margin Distinct, Outline Attached -Granulation Amt Medium (34-66%) -Granulation [place] -Slough/Fibrin Yes -Necrosis Amt Medium (34-66%) -Necrotic Tissue Type Adherent Slough -Structure Exposed N/A -Texture (Cassandra-wound Skin Appearance) Assessed, Scarring -Moisture (Cassandra-wound Skin Appearance) Assessed -Color (Cassandra-wound Skin Appearance) Assessed -Temperature (Cassandra-wound Skin No Abnormality Appearance) (Pt Warm) -Tenderness on Palpation (Cassandra-wound No Skin Appearance) -Ulcer Cleansing Wound Cleanser -Foul Odor after Cleansing No #1 R buttock -Combined with other wound No -Current Size (cm) - Length 4 -Current Size (cm) - Width 2.2 -Current Size (cm) - Depth 0.4 -Total Square Cm 8.8 -Photo Taken Yes -Tunneling No -Undermining/Tunneling No -Circular Undermining No -Exudate Amt Medium -Exudate Type Serosanguineous -Wound Margin Distinct, Outline Attached -Granulation Amt Medium (34-66%) -Granulation [place] -Slough/Fibrin Yes -Necrosis Amt Medium (34-66%) -Necrotic Tissue Type Adherent Slough -Structure Exposed N/A -Texture (Cassandra-wound Skin Appearance) Assessed, Scarring -Moisture (Cassandra-wound Skin Appearance) Assessed -Color (Cassandra-wound Skin Appearance) Assessed -Temperature (Cassandra-wound Skin No Abnormality Appearance) (Pt Warm) -Tenderness on Palpation (Cassandra-wound No Skin Appearance) -Ulcer Cleansing Wound Cleanser -Foul Odor after Cleansing No WC - Nurse 2 - General Ulcer CM Notes Start: 07/11/22 11:21 Freq: Status: Active Protocol: Activity Type Activity Date Activity User E-sign Co-sign Detail Recorded Client Recorded Date Recorded By Document 07/11/22 11:46 MW [id number] 07/11/22 11:50 MW 07/11/22 11:46 Wound Center Nurse 2 #2 sacral -Time 11:49 -Correct Patient Yes -Correct Side, Site, Position Yes -Correct Procedure Yes -Procedure Performed No -Tunneling No -Undermining/Tunneling No -Circular Undermining No -Wound/Ulcer Outcome Not Healed #1 R buttock -Time 11:49 -Correct Patient Yes -Correct Side, Site, Position Yes -Correct Procedure Yes -Procedure Performed Yes -Type of Procedure Debridement -Clinical Debridement Subcutaneous -Tissue Removed Subcutaneous -Post Debridement (cm) - Length 2.5 -Post Debridement (cm) - Width 4.5 -Post Debridement (cm) - Depth 0.5 -Total Square (Post) (cm) 11.25 -Area of Debridement (cm) - Length 2.5 -Area of Debridement (cm) - Width 4.5 -Total Square (Area) (cm) 11.25 -Tunneling No -Undermining/Tunneling No -Circular Undermining No -Wound/Ulcer Outcome Not Healed -Ulcer Cleansing Rinsed/ Irrigated with Saline -Foul Odor after Cleansing No -Bioengineered Tissue No -Bleeding Controlled with Pressure -Treatment Response Procedure Tolerated Well -Offloading No -Debridement - Subq, 1st 20sq cm Yes Pain Scale: 0-10 Numeric Is Patient Pain Free? Yes - Nurse 3 - General Ulcer D/C NN Start: 07/11/22 11:21 Freq: Status: Active Protocol: Activity Type Activity Date Activity User E-sign Co-sign Detail Recorded Client Recorded Date Recorded By Document 07/11/22 11:51 MW [id number] 07/11/22 11:52 MW 07/11/22 11:51 Wound Care Center Nurse 3 #2 sacral -Ulcer Cleansing Rinsed/ Irrigated with Saline -Foul Odor after Cleansing No -Negative Pressure Wound Therapy N/A -Primary Dressing Applied Aquacel Extra, Mepilex Border -Aquacel Extra 1 -Mepilex Border 1 #1 R buttock -Ulcer Cleansing Rinsed/ Irrigated with Saline -Foul Odor after Cleansing No -Negative Pressure Wound Therapy N/A -Primary Dressing Applied Promogran Silvana Matter, Mepilex Border -Mepilex Border 1 -Promogran Silvana Matter 1 Treatment Response Procedure Tolerated Well Pain Scale: 0-10 Numeric Is Patient Pain Free? Yes Teaching: Wound Center Offload: Mattress, Cushion, Reposition -Person Taught Patient,Primary Caregiver -Teaching Method Discussion -Response to teaching Verbalize understanding WC - Visit Discharge Discharge Condition Stable Ambulatory Status Wheelchair Transportation Private Auto Accompanied by caregiver Medication Reconcilliation completed & No provided to patient/care provider Clinical Summary of Care Provided Yes Assessment/Plan Assessment/Plan (1) Decubitus ulcer of right leg, stage 2: CODE(S): L89.892 - Pressure ulcer of other site, stage 2 PLAN: Pad and protect (2) Blister (nonthermal), left ankle, initial encounter: CODE(S): S90.522A - Blister (nonthermal), left ankle, initial encounter PLAN: Pad and protect (3) Decubitus ulcer of coccyx, stage 2: CODE(S): L89.152 - Pressure ulcer of sacral region, stage 2 PLAN: Apply Aquacel extra to wound base cover with absorbent dressing 2 times a day Follow-up in 2 week Continue drinking protein drinks 3 times a day (4) Decubitus ulcer of right buttock, stage 3: CODE(S): L89.313 - Pressure ulcer of right buttock, stage 3 PLAN: Wash the area with antibacterial soap and pack with Silvana cover with gauze and tape or absorbent dressing daily Follow-up in 1 week
== END 2022-08-08 23:59 | disposition home or self-care (01) ==
LOC: WC 11:03
PROVIDERS: PCP Internal Medicine; Visit Provider Surgery
DX: L89.313 Pressure ulcer of right buttock, stage 3 (principal); L89.892 Pressure ulcer of other site, stage 2; L89.152 Pressure ulcer of sacral region, stage 2; Q05.7 Lumbar spina bifida without hydrocephalus; E11.9 Type 2 diabetes mellitus without complications; Z79.4 Long term (current) use of insulin; S90.522A Blister (nonthermal), left ankle, initial encounter
CPT/HCPCS: 11042

== ENCOUNTER 2022-07-14 14:31 | Emergency (ER) | payer MEDICARE, MEDICAID, SELFPAY ==
[2022-07-14 14:32] VITALS: BP 125/71; PULSE 128; RESP 16; TEMP 37.3; O2SAT 98
[2022-07-14 14:53] VITALS: TEMP 36.9
[2022-07-14 14:54] VITALS: BMI 19.2
[2022-07-14 14:56] VITALS: BP 125/71; PULSE 128; RESP 16; TEMP 36.9; O2SAT 98
--- NOTE | 2022-07-14 15:10 | EX.ED.DYSGE1 ---
HPI <ARIELLE Heard - Last Filed: 07/14/22 17:30> History of Present Illness Chief Complaint: Hyperglycemia Narrative Narrative: Patient is a 42-year-old female with history of spina bifida who has no feeling or use of her lower extremities who is in a wheelchair who does have care daily however not at night presents to the emergency department with multiple weeks of feeling of fatigue, per her care provider today, the patient's blood sugars have been greater than 400 over the last 4 days. Patient states she is feels very tired and states she could sleep all the time. She has a small wound to her coccyx that is currently being seen by the wound center. A wound nurse comes Saturday to check on it and change the dressing. She has not been on antibiotics for greater than 2 weeks. This wound has been ongoing for 6 months. She denies any fever or chills. Denies any specific pain. She is here with her care provider who states that the patient's energy level is low. [facility] <ARIELLE Heard - Last Filed: 07/14/22 17:30> [facility] Medical History Anemia Anxiety and depression Buttock wound Cancer Decubitus ulcer of coccyx, stage 2 Decubitus ulcer of right buttock, stage 3 Difficulty transferring Health care maintenance High cholesterol Insulin dependent diabetes mellitus Leukocytosis Medulloblastoma Spina bifida of lumbar spine Type 1 diabetes mellitus Vertigo Home Medications insulin glargine 100 unit/mL (3 mL) subcutaneous pen (Lantus Solostar U-100 Insulin) 20 unit subcut QPM 04/20/22 [History Last Taken Unknown] blood sugar diagnostic ([employer] Verio test strips) #120 ea 05/31/22 [Rx Last Taken Unknown] insulin aspart U-100 100 unit/mL subcutaneous solution (Novolog U-100 Insulin aspart) 6 unit (0.06 mL) subcut TIDWMEAL #10 mL 05/31/22 [Rx Last Taken Unknown] fluoxetine 20 mg capsule 20 mg PO DAILY #60 caps 06/21/22 [Rx Last Taken Unknown] ferrous sulfate 325 mg (65 mg iron) tablet 325 mg PO DAILY #90 tabs 06/22/22 [Rx Last Taken Unknown] cephalexin 500 mg capsule 500 mg PO 4X/DAY 07/03/22 [History Last Taken Unknown] doxycycline monohydrate 100 mg capsule 100 mg PO BID 07/03/22 [History Last Taken Unknown] methylprednisolone 4 mg tablets in a dose pack (Methylpred DP) 4 mg PO DAILY 07/03/22 [History Last Taken Unknown] pen needle, diabetic 32 gauge x 5/32 (BD Ultra-Fine Charla Pen Needle) #400 ea 07/05/22 [Rx Last Taken Unknown] cephalexin 500 mg capsule 500 mg PO Q6 #40 CAPSULES 07/14/22 [Rx Last Taken Unknown] Allergy/AdvReac Type Severity Reaction Status Date / Time Latex, Natural Rubber Allergy Hives Verified 07/14/22 14:35 Family History Other Cancer Diabetes FH: defects Surgical History History of brain surgery History of release of tendon Social History Smoking Status: Never smoker alcohol intake: current alcohol intake frequency: holidays/special occasions only Alcohol type: wine substance use type: does not use do you feel safe at home: Yes ROS <ARIELLE Heard - Last Filed: 07/14/22 17:30> [facility] ROS Narrative Constitutional: Negative for fever, chills, weight loss. Positive for weakness Eyes: Negative for vision loss, vision change, double vision ENT: Negative for any sore throat, ear pain, congestion Cardiovascular: Negative for any chest pain, tightness, palpitations Respiratory: Negative for any cough, sputum production, hemoptysis, dyspnea, dyspnea on exertion, orthopnea Gastrointestinal: Negative for any abdominal pain, nausea, vomiting, diarrhea, constipation, blood in stool, blood in vomit : Negative for any urinary frequency, dysuria, retention, blood in urine Muscle skeletal: Negative for any muscle joint pain, stiffness, myalgias, arthralgias, neck pain, back pain Neurological: Negative for any headache, syncope, numbness or tingling, dizziness Skin: Negative for any rashes, lumps, itching, abrasions, lacerations. Positive for wound to the coccyx Psychiatric: Negative for any depression, anxiety, stress, suicidal ideation, homicidal ideation Hematologic: Negative for any easy bruising, excessive bruising, easy bleeding Allergies: Negative for any eczema, hives, rash EXAM <ARIELLE Heard - Last Filed: 07/14/22 17:30> Physical Exam Narrative Exam Narrative: Vital signs reviewed. Patient is tachycardic, afebrile. HEET: Head normocephalic atraumatic, TMs clear bilaterally. Posterior pharynx is clear, dry mucous membranes. Nares clear bilaterally. Neck: Supple with no lymphadenopathy or tenderness. No signs of meningismus, negative jolt sign. Cardiac: Tachycardic rate no murmurs gallops or rubs, equal peripheral pulses bilaterally. Respiratory: Lungs clear to auscultation bilaterally. No chest tenderness. Abdomen: Soft, nontender, nondistended. No abdominal bruit or pulsatile masses. No hepatosplenomegaly Extremities: Lower extremities are atrophied, patient does have a right 1 wrapped it is red, per the patient as well as the caregiver this is chronic. The patient sees a wound care center for this as well. Neuro: Cranial nerves II through XII intact, no focal neurological deficits. Skin: Clean dry and intact with no rash, purpura, petechiae, vesicles or pustules. I was able to look at the patient's wound on her coccyx, it is roughly 3 cm long by 1.5 cm wide, there is granulation tissue, there is slight erythema around the area however there is no gross drainage, foul smell, appears generally well. Backs/flank: No CVA tenderness, no midline spinal tenderness, no deformity. Psych: Normal mood and affect. No SI, HI or acute psychosis. Const Vital Signs: 07/14/22 14:32 07/14/22 14:53 07/14/22 14:56 Temperature 99.1 F 98.5 F 98.5 F Temperature Source Temporal Oral Oral Pulse Rate 128 H 128 H Respiratory Rate 16 16 Blood Pressure 125/71 H 125/71 H Blood Pressure Mean 89 89 Pulse Ox 98 98 Oxygen Delivery Method Room Air Room Air 07/14/22 16:14 Temperature 98.2 F Temperature Source Oral Pulse Rate 109 H Respiratory Rate 16 Blood Pressure 119/82 H Blood Pressure Mean 94 Pulse Ox 96 Oxygen Delivery Method Room Air Positive well nourished and well developed General Appearance ED: well developed <Dr. Peter Listerman, MD - Last Filed: 07/14/22 20:22> Physical Exam Const Vital Signs: 07/14/22 14:32 07/14/22 14:53 07/14/22 14:56 Temperature 99.1 F 98.5 F 98.5 F Temperature Source Temporal Oral Oral Pulse Rate 128 H 128 H Respiratory Rate 16 16 Blood Pressure 125/71 H 125/71 H Blood Pressure Mean 89 89 Pulse Ox 98 98 Oxygen Delivery Method Room Air Room Air 07/14/22 16:14 Temperature 98.2 F Temperature Source Oral Pulse Rate 109 H Respiratory Rate 16 Blood Pressure 119/82 H Blood Pressure Mean 94 Pulse Ox 96 Oxygen Delivery Method Room Air MDM <ARIELLE Heard - Last Filed: 07/14/22 17:30> MDM Lab Data Attestation: I reviewed the patient's lab results. Labs: Laboratory Results - last 24 hr 07/14/22 07/14/22 07/14/22 14:45 15:20 15:20 WBC 18.9 H RBC 4.10 L Hgb 10.1 L Hct 33.8 L MCV 82.4 MCH 24.6 L MCHC 29.9 L RDW Std Deviation 65.3 H RDW Coeff of Maurizio 22.4 H Plt Count 373 MPV 8.8 Immature Gran % (Auto) 0.400 Neut % (Auto) 83.8 H Lymph % (Auto) 9.1 L [place] % (Auto) 6.1 Eos % (Auto) 0.3 Baso % (Auto) 0.3 Absolute Neuts (auto) 15.8 H Absolute Lymphs (auto) 1.72 Nucleated RBC % 0 Differential Comment SCANNED Anisocytosis 1+ Sodium 140 Potassium 4.0 Chloride 103 Carbon Dioxide 29.0 Anion Gap 8 BUN 29 H Creatinine 0.79 Estim Creat Clear Calc 60.42 Est GFR (MDRD) Af Amer 102 Est GFR (MDRD) Non-Af 84 BUN/Creatinine Ratio 36.6 H Glucose 206 H Lactic Acid Calcium 9.2 Urine Color Urine Clarity Urine pH Ur Specific [place] Urine Protein Urine Glucose (UA) Urine Ketones Urine Occult Blood Urine Nitrite Urine Bilirubin Urine Urobilinogen Ur Leukocyte Esterase Urine RBC Urine WBC Ur Squamous Epith Cells Urine Bacteria Urine Mucus Acetone Level POC Glucose 187 H 07/14/22 07/14/22 07/14/22 15:20 15:20 15:35 WBC RBC Hgb Hct MCV MCH MCHC RDW Std Deviation RDW Coeff of Maurizio Plt Count MPV Immature Gran % (Auto) Neut % (Auto) Lymph % (Auto) [place] % (Auto) Eos % (Auto) Baso % (Auto) Absolute Neuts (auto) Absolute Lymphs (auto) Nucleated RBC % Differential Comment Anisocytosis Sodium Potassium Chloride Carbon Dioxide Anion Gap BUN Creatinine Estim Creat Clear Calc Est GFR (MDRD) Af Amer Est GFR (MDRD) Non-Af BUN/Creatinine Ratio Glucose Lactic Acid 1.2 Calcium Urine Color Yellow Urine Clarity Clear Urine pH 7.0 Ur Specific [place] 1.010 Urine Protein 15 H Urine Glucose (UA) 250 H Urine Ketones 15 H Urine Occult Blood Negative Urine Nitrite Negative Urine Bilirubin Negative Urine Urobilinogen 1 H Ur Leukocyte Esterase 25 H Urine RBC 0-5 SEEN Urine WBC 0-5 SEEN Ur Squamous Epith Cells 0-5 SEEN Urine Bacteria RARE Urine Mucus 0 SEEN Acetone Level NEGATIVE POC Glucose ABG Data ABG results: ABG 07/14/22 17:06 Specimen Type MIKE VBG pH 7.39 VBG pO2 30 VBG HCO3 28 H VBG Total CO2 30 VBG O2 Sat (Calc) 54 VBG Base Excess 3 POC Mix VBG pCO2 Pt Tmp 47.3 O2 Delivery Device Room Air Radiography Diagnostic Testing: Clinical Impression(s) from Imaging Studies Chest X-Ray 07/14/22 15:13 IMPRESSION: No acute findings in the chest. As above. Electronically Signed: Sebastián Hawk MD at 15:54 EDT , Treatment and Re-Evaluation :: Patient appears to be in no respiratory distress, patient's vital signs are stable. Patient is slightly tachycardic however he states this has been ongoing. Patient presents the emergency department for feeling of fatigue has been ongoing for multiple months, she is concerned about a wound infection of a chronic wound for the last 6 months. Patient is also concerned that her blood sugar was elevated. Patient did receive a DKA work-up. Patient's laboratory values show a leukocytosis with a white blood count of 18.9, however looking at the past visits, from April 2022 till now, the patient has never below 18. This seems to be chronic. Patient's blood sugar was 206. I spoke at length with the patient, she did change her Dexcom here, and it read below 200. We did speak that the Dexcom that is towards the end of its duration before any change, might be inaccurate. There is a possibly that the patient's blood sugars were not over 400. Patient acetone level was negative. There is no anion gap. Lactic acid was 1.2. At this time, I do not believe that there is any evidence of deep tissue infection, diabetic ketoacidosis, anemia. At this time the patient is stable for discharge. The patient and care provider did discuss admission however there is no necessity for admission at this time. The patient will be placed on Keflex to take as a precaution. Again the wound does show some slight redness however no acute infection, no evidence of deep tissue infection. I believe that her elevated blood sugar secondary to her not working Dexcom. She will change it and continue her daily medicine. Patient is stable all questions answered. <Dr. Royce Mcdonough MD - Last Filed: 07/14/22 20:22> [facility] MDM Narrative Medical decision making narrative: I have personally performed a face to face assessment of the patient and have reviewed the SPRING Note. I performed a substantive portion of the visit including all aspects of the following. My gomez findings include: History: Patient presents with high sugars over the last about 4 days. She has been feeling tired and worn out but that is going back 3 or 4 weeks or more. She does have 2 sores in the sacral area. 1 of these did start to get just a little bit more red over the last day. But no drainage. She is actually had it for about 6 months. She did miss a couple appointments for wound care. She denies fevers or chills. No nausea or vomiting. She just has overall lethargy and she came in today because of her high sugars. She takes Lantus. She directly draws this and uses a separate syringe for injection. She does use an insulin pen for her short acting insulin. She is pretty sure it is functioning correctly. Exam: Patient awake alert no acute distress. Nontoxic in appearance. HEENT shows no trauma. Mucous membranes are still moist. Lungs are clear. Saturations normal. Heart is little tachycardic but evidently this is chronic and unchanged for patient. Abdomen is soft nontender. Sacral wounds show a little bit of erythema around it about 1 to 1-1/2 cm. But no odor. Its not swollen. It does have good granulation tissue. The wounds on her lower extremities are improved. These were not unwrapped as she has medicated wraps on them and has close follow-up arranged. There is no proximal erythema. Medical Decision Making: Blood work x-ray urinalysis will be done. Patient's work-up is actually not showing any marked acute abdomen normality. Her white count is very high but it has been this way for a long time per patient and per our labs. With the slight erythema of the back. I will give her antibiotics. They had cleaned this and that may have irritated it. If it stays red or grows at all she should start. She has an appointment to follow-up for this on Saturday. We found out that the patient just changed her continuous glucose monitor Dexcom 6 shortly before coming in. We looked at her numbers. For the last 3 or 4 days of her last monitor her sugars were high. As soon as she switched to the new monitor she is running about 170. This is more consistent with her blood sugars. Therefore I think her 400 blood sugars actually were in error by her monitor. Her levels that are levels are in closer correlation now. Patient's symptoms of tiredness and poor sleep have been going on weeks or months. I do not think she needs to be admitted for this at this time. Lab Data Labs: Laboratory Results - last 24 hr 07/14/22 07/14/22 07/14/22 14:45 15:20 15:20 WBC 18.9 H RBC 4.10 L Hgb 10.1 L Hct 33.8 L MCV 82.4 MCH 24.6 L MCHC 29.9 L RDW Std Deviation 65.3 H RDW Coeff of Maurizio 22.4 H Plt Count 373 MPV 8.8 Immature Gran % (Auto) 0.400 Neut % (Auto) 83.8 H Lymph % (Auto) 9.1 L [place] % (Auto) 6.1 Eos % (Auto) 0.3 Baso % (Auto) 0.3 Absolute Neuts (auto) 15.8 H Absolute Lymphs (auto) 1.72 Nucleated RBC % 0 Differential Comment SCANNED Anisocytosis 1+ Sodium 140 Potassium 4.0 Chloride 103 Carbon Dioxide 29.0 Anion Gap 8 BUN 29 H Creatinine 0.79 Estim Creat Clear Calc 60.42 Est GFR (MDRD) Af Amer 102 Est GFR (MDRD) Non-Af 84 BUN/Creatinine Ratio 36.6 H Glucose 206 H Lactic Acid Calcium 9.2 Urine Color Urine Clarity Urine pH Ur Specific [place] Urine Protein Urine Glucose (UA) Urine Ketones Urine Occult Blood Urine Nitrite Urine Bilirubin Urine Urobilinogen Ur Leukocyte Esterase Urine RBC Urine WBC Ur Squamous Epith Cells Urine Bacteria Urine Mucus Acetone Level POC Glucose 187 H 07/14/22 07/14/22 07/14/22 15:20 15:20 15:35 WBC RBC Hgb Hct MCV MCH MCHC RDW Std Deviation RDW Coeff of Maurizio Plt Count MPV Immature Gran % (Auto) Neut % (Auto) Lymph % (Auto) [place] % (Auto) Eos % (Auto) Baso % (Auto) Absolute Neuts (auto) Absolute Lymphs (auto) Nucleated RBC % Differential Comment Anisocytosis Sodium Potassium Chloride Carbon Dioxide Anion Gap BUN Creatinine Estim Creat Clear Calc Est GFR (MDRD) Af Amer Est GFR (MDRD) Non-Af BUN/Creatinine Ratio Glucose Lactic Acid 1.2 Calcium Urine Color Yellow Urine Clarity Clear Urine pH 7.0 Ur Specific [place] 1.010 Urine Protein 15 H Urine Glucose (UA) 250 H Urine Ketones 15 H Urine Occult Blood Negative Urine Nitrite Negative Urine Bilirubin Negative Urine Urobilinogen 1 H Ur Leukocyte Esterase 25 H Urine RBC 0-5 SEEN Urine WBC 0-5 SEEN Ur Squamous Epith Cells 0-5 SEEN Urine Bacteria RARE Urine Mucus 0 SEEN Acetone Level NEGATIVE POC Glucose ABG Data ABG results: ABG 07/14/22 17:06 Specimen Type MIKE VBG pH 7.39 VBG pO2 30 VBG HCO3 28 H VBG Total CO2 30 VBG O2 Sat (Calc) 54 VBG Base Excess 3 POC Mix VBG pCO2 Pt Tmp 47.3 O2 Delivery Device Room Air Radiography Diagnostic Testing: Clinical Impression(s) from Imaging Studies Chest X-Ray 07/14/22 15:13 IMPRESSION: No acute findings in the chest. As above. Electronically Signed: Sebastián Hawk MD at 15:54 EDT Reading Location ID and State: [id number] / [place] Tel , Service support , Discharge Plan Triage Chief Complaint: Hyperglycemia Other Complaint: Cellulitis ED Midlevel Provider: Rupert Rhodes ED Provider: Royce Mcdonough Dx/Rx/DC Orders Clinical Impression: Type 2 diabetes mellitus, Wound cellulitis, Fatigue Instructions: Long-Term Complications of Diabetes, ED Cellulitis Prescriptions: New cephalexin 500 mg capsule 500 mg PO Q6 Qty: 40 0RF No Action insulin glargine [Lantus Solostar U-100 Insulin] 100 unit/mL (3 mL) insulin pen 20 unit subcut QPM (DME) pen needle, diabetic [BD Ultra-Fine Charla Pen Needle] 32 gauge x / needle See Rx Instructions .ROUTE .MEDSUPPLY Qty: 400 1RF Rx Instructions: 4 times daily fluoxetine 20 mg capsule 20 mg PO DAILY Qty: 60 1RF cephalexin 500 mg capsule 500 mg PO 4X/DAY doxycycline monohydrate 100 mg capsule 100 mg PO BID methylprednisolone [Methylpred DP] 4 mg tablets,dose pack 4 mg PO DAILY insulin aspart U-100 [Novolog U-100 Insulin aspart] 100 unit/mL solution 6 unit subcut TIDWMEAL MDD 30 Qty: 10 5RF Rx Instructions: +SSI (DME) [employer]Touch Verio test strips Strip See Rx Instructions .Route Qty: 120 5RF Rx Instructions: 4x/day ferrous sulfate 325 mg (65 mg iron) tablet 325 mg PO DAILY Qty: 90 3RF Primary Care Provider: Cosmo Smith Referrals: Cosmo Smith MD [Primary Care Provider] - Activity Restrictions/Additional Instructions: Please monitor your blood sugars. You have a Keflex prescription, keep up with the wound clinic. Return for any worsening symptoms. Disposition Disposition: Home, Self Care Discharge Date/Time: 07/14/22 18:03
--- NOTE | 2022-07-14 15:13 | RAD_ITS ---
EXAM: XR CHEST, 1 VIEW CLINICAL INDICATION: cough TECHNIQUE: Frontal view of the chest. COMPARISON: No relevant prior studies available. FINDINGS: LUNGS AND PLEURAL SPACES: Normal. No consolidation or edema. No pneumothorax. No effusion. HEART: Normal heart size. MEDIASTINUM: No mediastinal or hilar mass. BONES/JOINTS: No acute abnormality. TUBES, LINES AND DEVICES: Left PACE ANALYST shunt tube noted extending into the right side of the abdomen. Cervical portion of the PACE ANALYST shunt tube may or may not be connected. RAD/Chest 1 View (Portable) IMPRESSION: No acute findings in the chest. As above. Electronically Signed: Sebastián Hawk MD at 15:54 EDT ,
[2022-07-14] MEDS: 0.9% Normal Saline 1,000 ML 1000 ML IV (15:23)
[2022-07-14 15:29] LABS: Absolute Lymphocyte Count 1.72 X10^3/uL (0.83-4.51); Absolute Neutrophil Count 15.8 X10^3/uL (2.0-7.7); Basophil# 0.05 X10^3/uL; Basophil% 0.3 % (0-1); Eosinophil# 0.06 X10^3/uL; Eosinophils% 0.3 % (0-5); Hematocrit 33.8 % (37-47); Hemoglobin 10.1 g/dL (12.0-15.0); Lymphocyte # 1.72 X10^3/ul (0.83-4.51); Lymphocyte % 9.1 % (19-41); Mean Corp Hgb Conc 29.9 g/dL (32-36); Mean Corpuscular Hgb 24.6 pg (27.0-32.0); Mean Corpuscular Volume 82.4 fL (81-99); Mean Platelet Vol. 8.8 fl (6.2-12.0); Monocyte# 1.16 X10^3/uL; Monocyte% 6.1 % (0-10); NRBC Flagged by Analyzer 0 % (0-5); Neutrophil % 83.8 % (47-70); POSITIVE MORPHOLOGY YES; Platelet Count 373 K/mm3 (150-450); RBC Distribution Width CV 22.4 % (11.6-14.6); RBC Distribution Width SD 65.3 fl (35.1-43.9); White Blood Count 18.9 K/mm3 (4.4-11.0)
[2022-07-14 15:35] LABS: Bedside Glucose 187 mg/dL (74-106)
[2022-07-14 15:46] LABS: Mucous, Urine 0 SEEN /hpf (<or=2+)
[2022-07-14 15:47] LABS: Color, Urine Yellow (Yellow); Glucose, Dipstick 250 mg/dl (Normal); Ketone-Dipstick 15 mg/dl (Negative); Leukocyte Esterase-Dipstick 25 /ul (Negative); Nitrite-Dipstick Negative (Negative); Occult Blood-Urine Negative /ul (Negative); Protein-Dipstick 15 mg/dl (Negative); Urine Bilirubin Dipstick Negative (Negative); Urine Clarity Clear (Clear); Urine Urobilinogen 1 mg/dl (Normal)
[2022-07-14 15:49] LABS: Anion Gap 8 (5-15); BUN 29 mg/dL (7-18); BUN/Creat Ratio 36.6 RATIO (10-20); Calcium,Total 9.2 mg/dL (8.5-10.1); Chloride 103 mmol/L (98-107); Creatinine, Serum 0.79 mg/dL (0.55-1.02); EST Glomerular Filtration Rate 84 mL/min (>60); Est Glom Filt Rate - Afr Amer 102 mL/min (>60); Estimated Creatinine Clearance 60.42 ml/min; Glucose 206 mg/dL (74-106); Sodium Level 140 mmol/L (136-145)
[2022-07-14 15:52] LABS: Lactic Acid 1.2 mmol/L (0.4-1.9)
[2022-07-14 15:53] LABS: Differential Indicated SCAN CRITERIA MET
[2022-07-14 15:56] LABS: Red Blood Cells-Urine 0-5 SEEN /hpf (0-5); Squamous Epithelial Cells - UA 0-5 SEEN /hpf (5-10); White Blood Cells 0-5 SEEN /hpf (0-5)
[2022-07-14 15:57] LABS: Bacteria RARE /hpf (None Seen)
[2022-07-14 16:14] VITALS: BP 119/82; PULSE 109; RESP 16; TEMP 36.8; O2SAT 96
[2022-07-14 16:38] LABS: Anisocytosis 1+; Differential Comment SCANNED
[2022-07-14 17:11] LABS: Blood Gas Specimen Type VEN; O2 Delivery Device Room Air; VBG BASE EXCESS 3 mmol/L (-1.0-3.5); VBG Bicarbonate 28 mmol/L (22-26); VBG PO2 30 mmHg (25-40); VBG SO2 54 % (50-70); VBG TCO2 30 mmol/L (23-33); VBG pCO2 47.3 mmHg (41-51); VBG pH 7.39 (7.32-7.42)
== END 2022-07-14 18:03 | disposition home or self-care (01) ==
PROVIDERS: Nurse Practitioner; Emergency Provider Emergency Medicine; PCP Internal Medicine; Visit Provider Emergency Medicine
DX: E10.65 Type 1 diabetes mellitus with hyperglycemia (principal); R53.83 Other fatigue; L03.312 Cellulitis of back [any part except buttock and flank]
CPT/HCPCS: 99283; 96360; 71045; 80048; 81001; 82009; 82803; 82962; 83605; 85025; J7030; P9612; A4216

== ENCOUNTER 2022-07-16 11:07 | Inpatient (IN) | payer MEDICARE, MEDICAID, SELFPAY ==
[2022-07-16 11:08] VITALS: BP 137/78; PULSE 120; RESP 18; TEMP 36.6; O2SAT 95
[2022-07-16 11:20] VITALS: BMI 20.6
--- NOTE | 2022-07-16 11:50 | EDS_ITS ---
HPI History of Present Illness Chief Complaint: Wound Check Narrative Narrative: Patient has spina bifida, she is wheelchair-bound she presents with 2 decub ulcers which seem to be getting worse. She has no systemic symptoms like fevers or chills. She is now living independently and is hard for her to turn. She does have some sort of home health. She also sees wound care. She is now on Keflex she has been on 2 prior antibiotics. [facility] Medical History Anemia Anxiety and depression Buttock wound Cancer Decubitus ulcer of coccyx, stage 2 Decubitus ulcer of right buttock, stage 3 Difficulty transferring Health care maintenance High cholesterol Insulin dependent diabetes mellitus Leukocytosis Medulloblastoma Spina bifida of lumbar spine Type 1 diabetes mellitus Vertigo Home Medications insulin glargine 100 unit/mL (3 mL) subcutaneous pen (Lantus Solostar U-100 Insulin) 20 unit subcut QPM 04/20/22 [History Last Taken Unknown] blood sugar diagnostic ([employer] Verio test strips) #120 ea 05/31/22 [Rx Last Taken Unknown] fluoxetine 20 mg capsule 20 mg PO DAILY #60 caps 06/21/22 [Rx Last Taken Unknown] ferrous sulfate 325 mg (65 mg iron) tablet 325 mg PO DAILY #90 tabs 06/22/22 [Rx Last Taken Unknown] cephalexin 500 mg capsule 500 mg PO 4X/DAY 07/03/22 [History Last Taken Unknown] doxycycline monohydrate 100 mg capsule 100 mg PO BID 07/03/22 [History Last Taken Unknown] methylprednisolone 4 mg tablets in a dose pack (Methylpred DP) 4 mg PO DAILY 07/03/22 [History Last Taken Unknown] cephalexin 500 mg capsule 500 mg PO Q6 #40 CAPSULES 07/14/22 [Rx Last Taken Unknown] insulin aspart U-100 100 unit/mL subcutaneous solution (Novolog U-100 Insulin aspart) 6 unit (0.06 mL) subcut TIDWMEAL #10 mL 07/16/22 [Rx Last Taken Unknown] pen needle, diabetic 32 gauge x 5/32 (BD Ultra-Fine Charla Pen Needle) #400 ea 07/16/22 [Rx Last Taken Unknown] Allergy/AdvReac Type Severity Reaction Status Date / Time Latex, Natural Rubber Allergy Hives Verified 07/16/22 11:07 Family History Other Cancer Diabetes FH: defects Surgical History History of brain surgery History of release of tendon Social History Smoking Status: Never smoker alcohol intake: current alcohol intake frequency: holidays/special occasions only Alcohol type: wine substance use type: does not use do you feel safe at home: Yes ROS ROS ED ROS Narrative Past medical history: Reviewed Medications: Reviewed Social history: Noncontributory Review of systems: All systems negative except as indicated General: No fever Eyes: No visual changes ENT: No upper airway congestion, normal voice Neck: No neck pain Cardiovascular: No chest pain Respiratory: No shortness of breath or cough Gastrointestinal: No abdominal pain, nausea vomiting or diarrhea Genitourinary: Incontinent secondary to spina bifida Pelvis: Decub ulcers as in HPI Musculoskeletal: Denies myalgias no difficulty with ambulation Skin: Right lower extremity chronic wounds which are being seen by wound center Neurological: Lower extremities have no movement otherwise no new focal deficits EXAM Physical Exam Narrative Exam Narrative: Physical exam General: She is comfortable in the bed. Head: Normocephalic, Atraumatic Eyes: Conjunctiva not pale ENT: Moist mucous membranes Neck: Supple, Nontender, No lymphadenopathy Cardiovascular: Regular rate, Regular rhythm Respiratory: No distress, CTA bilaterally Abdomen: Soft, Nontender, Nondistended Back: Nontender, Normal Inspection. Lumbar deformity seen consistent with spina bifida Buttock exam: There are 2 ulcers present to the 1 that is the most concern is about 3 cm with very slight surrounding erythema. It is not deep. Extremities: No movement of lower extremities however no signs of infection. Skin: Normal color, No rash Neurological: Alert, Normal Strength, Normal Sensation of upper extremities Const Vital Signs: 07/16/22 11:08 Temperature 97.9 F Temperature Source Temporal Pulse Rate 120 H Respiratory Rate 18 Blood Pressure 137/78 H Blood Pressure Mean 97 Pulse Ox 95 Oxygen Delivery Method Room Air MDM MDM MDM Narrative Medical decision making narrative: Patient is found to have leukocytosis, her inflammatory markers are quite elevated. The CAT scan does show relatively deep ulcers. I will admit her, she may need a surgical consult. Vancomycin and Zosyn were ordered. She also has a uterine fibroid. I discussed with mom who gave the history as well as her caregiver. I interpreted the CT and did see the fibroid and the ulcers. I discussed with hospitalist for admission. She is somewhat tachycardic with significant leukocytosis therefore a lack take acid was added in the sepsis work-up will be initiated. Lab Data Labs: Laboratory Results - last 24 hr 07/16/22 07/16/22 07/16/22 12:20 12:20 12:45 WBC Cancelled 16.7 H Corrected WBC Cancelled RBC Cancelled 3.71 L Hgb Cancelled 9.0 L Hct Cancelled 30.3 L MCV Cancelled 81.7 MCH Cancelled 24.3 L MCHC Cancelled 29.7 L RDW Std Deviation Cancelled 64.6 H RDW Coeff of Maurizio Cancelled 22.4 H Plt Count Cancelled 273 MPV Cancelled 9.3 Immature Gran % (Auto) Cancelled 0.800 Neut % (Auto) Cancelled 87.4 H Lymph % (Auto) Cancelled 5.3 L Gibson % (Auto) Cancelled 6.1 Eos % (Auto) Cancelled 0.2 Baso % (Auto) Cancelled 0.2 Absolute Neuts (auto) Cancelled 14.6 H Absolute Lymphs (auto) Cancelled 0.89 Total Counted Cancelled Neutrophils % (Manual) Cancelled Band Neutrophils % Cancelled Lymphocytes % (Manual) Cancelled Monocytes % (Manual) Cancelled Eosinophils % (Manual) Cancelled Basophils % (Manual) Cancelled Metamyelocytes % Cancelled Myelocytes % Cancelled Promyelocytes % Cancelled Blast Cells % Cancelled Plasma Cell % (Manual) Cancelled Other Cells % Cancelled Nucleated RBC % Cancelled 0 Nucleated RBCs/100 WBC Cancelled Differential Comment Cancelled SCANNED Diff Path Review Cancelled Hypersegmented Neuts Cancelled Atypical Lymphocytes Cancelled Reactive Lymphocytes Cancelled Smudge Cells Cancelled Toxic Granulation Cancelled Toxic Vacuolation Cancelled Dohle Bodies Cancelled Theresa Rods Cancelled Platelet Estimate Cancelled Plt Morphology Comment Cancelled RBC Morphology Cancelled Polychromasia Cancelled Hypochromasia Cancelled Poikilocytosis Cancelled Basophilic Stippling Cancelled Anisocytosis Cancelled 2+ Microcytosis Cancelled 1+ Macrocytosis Cancelled 1+ Spherocytes Cancelled Sickle Cells Cancelled Target Cells Cancelled Tear Drop Cells Cancelled Ovalocytes Cancelled Stomatocytes Cancelled Andujar-Clancy Bodies Cancelled Paula Cells Cancelled Bite Cells Cancelled Crenated Cell Cancelled Acanthocytes (Spur) Cancelled Rouleaux Cancelled Schistocytes Cancelled ESR Cancelled 74 H Sodium 127 L Potassium 5.4 H Chloride 99 Carbon Dioxide 20.0 L Anion Gap 8 BUN 19 H Creatinine 0.83 Estim Creat Clear Calc 59.74 Est GFR (MDRD) Af Amer 96 Est GFR (MDRD) Non-Af 79 BUN/Creatinine Ratio 22.8 H Glucose 498 H* Calcium 8.8 Total Bilirubin 0.70 AST 34 ALT 22 Alkaline Phosphatase 184 H C-React Prot High Sens Cancelled Total Protein 8.0 Albumin 2.4 L Globulin 5.6 H Albumin/Globulin Ratio 0.4 L 07/16/22 12:45 WBC Corrected WBC RBC Hgb Hct MCV MCH MCHC RDW Std Deviation RDW Coeff of Maurizio Plt Count MPV Immature Gran % (Auto) Neut % (Auto) Lymph % (Auto) Gibson % (Auto) Eos % (Auto) Baso % (Auto) Absolute Neuts (auto) Absolute Lymphs (auto) Total Counted Neutrophils % (Manual) Band Neutrophils % Lymphocytes % (Manual) Monocytes % (Manual) Eosinophils % (Manual) Basophils % (Manual) Metamyelocytes % Myelocytes % Promyelocytes % Blast Cells % Plasma Cell % (Manual) Other Cells % Nucleated RBC % Nucleated RBCs/100 WBC Differential Comment Diff Path Review Hypersegmented Neuts Atypical Lymphocytes Reactive Lymphocytes Smudge Cells Toxic Granulation Toxic Vacuolation Dohle Bodies Theresa Rods Platelet Estimate Plt Morphology Comment RBC Morphology Polychromasia Hypochromasia Poikilocytosis Basophilic Stippling Anisocytosis Microcytosis Macrocytosis Spherocytes Sickle Cells Target Cells Tear Drop Cells Ovalocytes Stomatocytes Andujar-Clancy Bodies [place] Cells Bite Cells Crenated Cell Acanthocytes (Spur) Rouleaux Schistocytes ESR Sodium Potassium Chloride Carbon Dioxide Anion Gap BUN Creatinine Estim Creat Clear Calc Est GFR (MDRD) Af Amer Est GFR (MDRD) Non-Af BUN/Creatinine Ratio Glucose Calcium Total Bilirubin AST ALT Alkaline Phosphatase C-React Prot High Sens 180.00 H Total Protein Albumin Globulin Albumin/Globulin Ratio Radiography Diagnostic Testing: Clinical Impression(s) from Imaging Studies Pelvis CT 07/16/22 13:26 IMPRESSION: Large heterogeneous mass in the lower abdomen and pelvis as described with fibroid uterus. Large ulcerated lesion in the lower posterior aspect of the abdomen. The spinal canal is seen abutting the depth of this ulcerated lesion. Soft tissue induration in the posterior aspect of the perineum more prominent on the right side with soft tissue ulceration. The patient has spina bifida. Electronically Signed: Brian Putnam MD at 13:48 EDT , Discharge Plan Triage Chief Complaint: Wound Check ED Provider: Rupert Loo Dx/Rx/DC Orders Clinical Impression: Decubitus ulcer, Leukocytosis, Tachycardia, Spina bifida Prescriptions: No Action insulin glargine [Lantus Solostar U-100 Insulin] 100 unit/mL (3 mL) insulin pen 20 unit subcut QPM fluoxetine 20 mg capsule 20 mg PO DAILY Qty: 60 1RF cephalexin 500 mg capsule 500 mg PO 4X/DAY doxycycline monohydrate 100 mg capsule 100 mg PO BID methylprednisolone [Methylpred DP] 4 mg tablets,dose pack 4 mg PO DAILY cephalexin 500 mg capsule 500 mg PO Q6 Qty: 40 0RF (DME) OneTouch Verio test strips Strip See Rx Instructions .Route Qty: 120 5RF Rx Instructions: 4x/day ferrous sulfate 325 mg (65 mg iron) tablet 325 mg PO DAILY Qty: 90 3RF insulin aspart U-100 [Novolog U-100 Insulin aspart] 100 unit/mL solution 6 unit subcut TIDWMEAL MDD 30 Qty: 10 5RF Rx Instructions: +SSI (DME) pen needle, diabetic [BD Ultra-Fine Charla Pen Needle] 32 gauge x 5/32 needle See Rx Instructions .ROUTE .MEDSUPPLY Qty: 400 1RF Rx Instructions: 4 times daily Primary Care Provider: Cosmo Smith Referrals: Cosmo Smith MD [Primary Care Provider] - Disposition Disposition: Acute Care [facility]
[2022-07-16 12:53] LABS: ALB/GLOB Ratio 0.4 RATIO (0.9-2.4); AST(SGOT) 34 U/L (15-37); Alanine Aminotransfer ALT/SGPT 22 U/L (13-56); Albumin, Serum 2.4 g/dL (3.2-5.0); Alkaline Phosphatase 184 U/L (45-117); Anion Gap 8 (5-15); BUN 19 mg/dL (7-18); BUN/Creat Ratio 22.8 RATIO (10-20); Calcium,Total 8.8 mg/dL (8.5-10.1); Chloride 99 mmol/L (98-107); Creatinine, Serum 0.83 mg/dL (0.55-1.02); EST Glomerular Filtration Rate 79 mL/min (>60); Est Glom Filt Rate - Afr Amer 96 mL/min (>60); Estimated Creatinine Clearance 59.74 ml/min; Globulin 5.6 g/dL (2.2-4.2); Glucose 498 mg/dL (74-106); Potassium 5.4 mmol/L (3.5-5.1); Sodium Level 127 mmol/L (136-145)
[2022-07-16 13:00] LABS: Erythrocyte Sedimentation Rate 74 mm/hr (0-30)
[2022-07-16 13:03] LABS: Absolute Lymphocyte Count 0.89 X10^3/uL (0.83-4.51); Absolute Neutrophil Count 14.6 X10^3/uL (2.0-7.7); Basophil# 0.04 X10^3/uL; Basophil% 0.2 % (0-1); Eosinophil# 0.04 X10^3/uL; Eosinophils% 0.2 % (0-5); Hematocrit 30.3 % (37-47); Lymphocyte # 0.89 X10^3/ul (0.83-4.51); Lymphocyte % 5.3 % (19-41); Mean Corp Hgb Conc 29.7 g/dL (32-36); Mean Corpuscular Hgb 24.3 pg (27.0-32.0); Mean Corpuscular Volume 81.7 fL (81-99); Mean Platelet Vol. 9.3 fl (6.2-12.0); Monocyte# 1.02 X10^3/uL; Monocyte% 6.1 % (0-10); NRBC Flagged by Analyzer 0 % (0-5); Neutrophil # 14.59 X10^3/uL (2.7-7.7); Neutrophil % 87.4 % (47-70); POSITIVE MORPHOLOGY YES; Platelet Count 273 K/mm3 (150-450); RBC Distribution Width CV 22.4 % (11.6-14.6); RBC Distribution Width SD 64.6 fl (35.1-43.9); Red Blood Count 3.71 M/mm3 (4.2-5.4); White Blood Count 16.7 K/mm3 (4.4-11.0)
[2022-07-16 13:04] LABS: Differential Indicated SCAN CRITERIA MET
--- NOTE | 2022-07-16 13:26 | CT_ITS ---
STUDY: CT PELVIS WITH CONTRAST REASON FOR EXAM: Female, 42 years old. Soft tissue ulceration. RADIATION DOSAGE (If Supplied By Facility): CTDIvol = ( 18.19 ) mGy, DLP = ( 624.52 ) mGycm TECHNIQUE: Transaxial imaging of the pelvis was performed without oral contrast. 100ML OF ISOVUE 300 was administered intravenously. Individualized dose optimization techniques were used for this CT. COMPARISON: None. FINDINGS: 9.1 cm x 13.1 cm x 7.3 cm complex solid and cystic mass arising in the pelvis and extending towards the lower abdomen. This is more prominent on the right side. There is also prominence of the uterus suggestive of fibroid uterus. There is a 2.8 cm x 6 cm ulceration in the midline in the lower posterior abdomen extending into the upper pelvis. The spinal canal is seen abutting the ulcerated lesion. There is no evidence of osteomyelitis at this time. There is also evidence of soft tissue induration and ulceration in the posterior aspect of the peritoneum worse on the right side with the increased markings in the subcutaneous fat. Normal urinary bladder. Normal visualized small intestine. Normal visualized colon. There is no pelvic fluid. There is no pelvic lymphadenopathy or mass lesion. Normal visualized pelvic arteries. There is evidence of a spina bifida. A ventriculoperitoneal shunt tube is seen with the tip in the right lower quadrant. CT/Pelvis WITH IV Contrast IMPRESSION: Large heterogeneous mass in the lower abdomen and pelvis as described with fibroid uterus. Large ulcerated lesion in the lower posterior aspect of the abdomen. The spinal canal is seen abutting the depth of this ulcerated lesion. Soft tissue induration in the posterior aspect of the perineum more prominent on the right side with soft tissue ulceration. The patient has spina bifida. Electronically Signed: Brian Putnam MD at 13:48 EDT ,
[2022-07-16 14:08] LABS: Differential Comment SCANNED
[2022-07-16 14:09] LABS: Anisocytosis 2+; Macrocytosis 1+; Microcytosis 1+
--- NOTE | 2022-07-16 14:10 | ED.RN ---
called and left message for wound center for pt update.
[2022-07-16 14:24] VITALS: BP 143/73; PULSE 114; RESP 18; TEMP 36.9; O2SAT 94
--- NOTE | 2022-07-16 14:53 | NURSING ---
MED SURG [facility]OT[facility]LCER
[2022-07-16 15:08] LABS: Lactic Acid 0.9 mmol/L (0.4-1.9)
[2022-07-16 15:29] VITALS: BP 143/73; PULSE 114; RESP 18; TEMP 36.9; O2SAT 94
--- NOTE | 2022-07-16 15:52 | HP.PCM.HOS_ITS ---
HPI - General General Date of Admission: 07/16/22 HPI Narrative VICTORIANO DE LOS SANTOS, is a 42 F who presents to the hospital for subacute decubitus ulcer that appears infected. She went to an [facility] 10 to 14 days ago and was given antibiotics and it had improved and then once antibiotics were complete her wound became worse. She does have a spina bifida with an L5-S1 lesion so is wheelchair-bound with variable sensation in her lower extremities. She is supposed to be self cathing but she does not do this and it appears that she has overflow incontinence leading to skin breakdown as she cannot always tell when she has been incontinent. She was seen in the ER a few days ago and was given oral antibiotics but she presents today with a worsening infection, tachycardic, and a white count of 16.7 though she is afebrile. [facility] Medical History Anemia Anxiety and depression Buttock wound Cancer Decubitus ulcer of coccyx, stage 2 Decubitus ulcer of right buttock, stage 3 Difficulty transferring Health care maintenance High cholesterol Insulin dependent diabetes mellitus Leukocytosis Medulloblastoma Spina bifida of lumbar spine Type 1 diabetes mellitus Vertigo Home Medications insulin glargine 100 unit/mL (3 mL) subcutaneous pen (Lantus Solostar U-100 Insulin) 20 unit subcut QPM 04/20/22 [History Last Taken Unknown] blood sugar diagnostic (OneTouch Verio test strips) #120 ea 05/31/22 [Rx Last Taken Unknown] fluoxetine 20 mg capsule 20 mg PO DAILY #60 caps 06/21/22 [Rx Last Taken Unknown] ferrous sulfate 325 mg (65 mg iron) tablet 325 mg PO DAILY #90 tabs 06/22/22 [Rx Last Taken Unknown] cephalexin 500 mg capsule 500 mg PO 4X/DAY 07/03/22 [History Last Taken Unknown] doxycycline monohydrate 100 mg capsule 100 mg PO BID 07/03/22 [History Last Taken Unknown] methylprednisolone 4 mg tablets in a dose pack (Methylpred DP) 4 mg PO DAILY 07/03/22 [History Last Taken Unknown] cephalexin 500 mg capsule 500 mg PO Q6 #40 CAPSULES 07/14/22 [Rx Last Taken Unknown] insulin aspart U-100 100 unit/mL subcutaneous solution (Novolog U-100 Insulin aspart) 6 unit (0.06 mL) subcut TIDWMEAL #10 mL 07/16/22 [Rx Last Taken Unknown] pen needle, diabetic 32 gauge x /32 (BD Ultra-Fine Charla Pen Needle) #400 ea 07/16/22 [Rx Last Taken Unknown] Allergy/AdvReac Type Severity Reaction Status Date / Time Latex, Natural Rubber Allergy Hives Verified 07/16/22 11:07 Family History Other Cancer Diabetes FH: defects Surgical History History of brain surgery History of release of tendon Social History Smoking Status: Never smoker alcohol intake: current alcohol intake frequency: holidays/special occasions only Alcohol type: wine substance use type: does not use do you feel safe at home: Yes ROS Constitutional Constitutional: Denies chills, fatigue, fever(s) or malaise Eyes Eyes: Denies blurry vision ENT HEENT: Denies headache(s) or nasal discharge Cardiovascular Cardiovascular: Denies chest pain, dyspnea on exertion or syncope Respiratory/Chest Respiratory/Chest: Denies cough, shortness of breath at rest or shortness of breath with exertion Gastrointestinal Gastrointestinal: Denies constipation, diarrhea, nausea or vomiting Genitourinary Genitourinary: Reports difficulty urinating and urinary incontinence; Denies dysuria Integumentary Integumentary: Reports wounds Neurologic Neurologic: Denies focal weakness, numbness or tremor(s) Psychiatric Psychiatric: Denies anxiety or depression Vital Signs Vital Signs Vital Signs: 07/16/22 11:08 07/16/22 14:24 07/16/22 15:29 Temperature 97.9 F 98.5 F 98.5 F Temperature Source Temporal Temporal Oral Pulse Rate 120 H 114 H 114 H Respiratory Rate 18 18 18 Blood Pressure 137/78 H 143/73 H 143/73 H Blood Pressure Mean 97 96 96 Pulse Ox 95 94 94 Oxygen Delivery Method Room Air Room Air Room Air Weight Weight: 95 lb 7.362 oz Body Mass Index (BMI) 20.6 Physical Exam Narrative General: Alert, Oriented x3, Cooperative, No apparent distress HEENT: Atraumatic, PERRLA, EOMI, Normocephalic Oral: Moist Mucosa Neck: Supple, No JVD Lungs: Diminished, Normal air movement, No rhonchi, No wheeze, No rales Cardiovascular: Regular rate, Regular Rhythm, Normal S1, Normal S2, No murmurs Abdomen: Soft, Non Tender, Non-Distended, No Hepato-splenomegaly Extremities: No edema, Capillary Refill Less than 3 Seconds Skin: Decubitus ulcers at base of coccyx Musculoskeletal: No Tenderness to Palpation of Joints or Extremities Neurological: Spina bifida, upper extremities are normal Psych/Mental Status: Normal Affect, Appropriate Results Lab / Micro Data Result Diagrams: 07/16/22 12:45 07/16/22 12:20 Labs: Laboratory Results - last 24 hr 07/16/22 12:20: WBC Cancelled, Corrected WBC Cancelled, RBC Cancelled, Hgb Cancelled, Hct Cancelled, MCV Cancelled, MCH Cancelled, MCHC Cancelled, RDW Std Deviation Cancelled, RDW Coeff of Maurizio Cancelled, Plt Count Cancelled, MPV Cancelled, Immature Gran % (Auto) Cancelled, Neut % (Auto) Cancelled, Lymph % (Auto) Cancelled, [place] % (Auto) Cancelled, Eos % (Auto) Cancelled, Baso % (Auto) Cancelled, Absolute Neuts (auto) Cancelled, Absolute Lymphs (auto) Cancelled, Total Counted Cancelled, Neutrophils % (Manual) Cancelled, Band Neutrophils % Cancelled, Lymphocytes % (Manual) Cancelled, Monocytes % (Manual) Cancelled, Eosinophils % (Manual) Cancelled, Basophils % (Manual) Cancelled, Metamyelocytes % Cancelled, Myelocytes % Cancelled, Promyelocytes % Cancelled, Blast Cells % Cancelled, Plasma Cell % (Manual) Cancelled, Other Cells % Cancelled, Nucleated RBC % Cancelled, Nucleated RBCs/100 WBC Cancelled, Differential Comment Cancelled, Diff Path Review Cancelled, Hypersegmented Neuts Cancelled, Atypical Lymphocytes Cancelled, Reactive Lymphocytes Cancelled, Smudge Cells Cancelled, Toxic Granulation Cancelled, Toxic Vacuolation Cancelled, Dohle Bodies C ancelled, Theresa Rods Cancelled, Platelet Estimate Cancelled, Plt Morphology Comment Cancelled, RBC Morphology Cancelled, Polychromasia Cancelled, Hypochromasia Cancelled, Poikilocytosis Cancelled, Basophilic Stippling Cancelled, Anisocytosis Cancelled, Microcytosis Cancelled, Macrocytosis Cancelled, Spherocytes Cancelled, Sickle Cells Cancelled, Target Cells Cancelled, Tear Drop Cells Cancelled, Ovalocytes Cancelled, Stomatocytes Cancelled, Andujar-Bovey Bodies Cancelled, [place] Cells Cancelled, Bite Cells Cancelled, Crenated Cell Cancelled, Acanthocytes (Spur) Cancelled, Rouleaux Cancelled, Schistocytes Cancelled, ESR Cancelled 07/16/22 12:20: Sodium 127 L, Potassium 5.4 H, Chloride 99, Carbon Dioxide 20.0 L, Anion Gap 8, BUN 19 H, Creatinine 0.83, Estim Creat Clear Calc 59.74, Est GFR (MDRD) Af Amer 96, Est GFR (MDRD) Non-Af 79, BUN/Creatinine Ratio 22.8 H, Glucose 498 H*, Calcium 8.8, Total Bilirubin 0.70, AST 34, ALT 22, Alkaline Phosphatase 184 H, C-React Prot High Sens Cancelled, Total Protein 8.0, Albumin 2.4 L, Globulin 5.6 H, Albumin/Globulin Ratio 0.4 L 07/16/22 12:45: WBC 16.7 H, RBC 3.71 L, Hgb 9.0 L, Hct 30.3 L, MCV 81.7, MCH 24.3 L, MCHC 29.7 L, RDW Std Deviation 64.6 H, RDW Coeff of Maurizio 22.4 H, Plt Count 273, MPV 9.3, Immature Gran % (Auto) 0.800, Neut % (Auto) 87.4 H, Lymph % (Auto) 5.3 L, [place] % (Auto) 6.1, Eos % (Auto) 0.2, Baso % (Auto) 0.2, Absolute Neuts (auto) 14.6 H, Absolute Lymphs (auto) 0.89, Nucleated RBC % 0, Differential Comment SCANNED, Anisocytosis 2+, Microcytosis 1+, Macrocytosis 1+, ESR 74 H 07/16/22 12:45: C-React Prot High Sens 180.00 H 07/16/22 12:45: Lactic Acid 0.[address] 07/16/22 13:26 IMPRESSION: Large heterogeneous mass in the lower abdomen and pelvis as described with fibroid uterus. Large ulcerated lesion in the lower posterior aspect of the abdomen. The spinal canal is seen abutting the depth of this ulcerated lesion. Soft tissue induration in the posterior aspect of the perineum more prominent on the right side with soft tissue ulceration. The patient has spina bifida. Electronically Signed: Brian Putnam MD at 13:48 EDT , Assessment & Plan Assessment/Plan (1) Wound cellulitis: (2) Decubitus ulcer: PLAN: Plan 1. Decubitus ulcer with surrounding erythema/spina bifida L5-S1 lesion ? White count is elevated at 16.7 and she is tachycardic consistent with an infection of note her white count has been elevated since April, she was seeing hematology for this and they feel that is likely reactive but wanted outpatient follow-up ? We will start her on IV Zosyn ? We will consult wound care as well as plastics for possible to be debridement ? Had extensive conversation with her and her mother about the possibility of having a urostomy done as an outpatient as she has difficulty self cathing and it sounds like she has routine episodes of overflow incontinence ? We will have wound cultures as well as blood cultures obtained 2. DM2 ? Blood sugars are elevated in the setting of infection that she says that she has had fluctuations in the past ? We will continue with her long-acting insulin ? Accu-Cheks ACHS ? Sliding scale insulin ? We will make adjustments as necessary DVT: Lovenox 78 minutes was spent on direct patient care as well as chart review and collaboration with colleagues Charges/Coding Visit Charges Inpatient E&M: 08894 Init Hosp L3
[2022-07-16 17:05] VITALS: BMI 21.0
--- NOTE | 2022-07-16 17:47 | NURSING ---
This RN went in to check pts blood sugar but pt said she had her own glucometer that reads on her phone. Blood sugar is 130 per pt's own Glucometer reading.
[2022-07-16 18:51] VITALS: BP 132/74; PULSE 113; RESP 18; TEMP 36.8; O2SAT 95
[2022-07-16] MEDS: Insulin Glargine-YFGN 100 UNIT/ML Pen 20 UNIT SC (20:38)
[2022-07-16] MEDS: FLUoxetine 20 MG Capsule PO (22:39)
[2022-07-16] MEDS: Insulin Lispro 100 UNIT/ML INSULN.PEN SC (22:39)
[2022-07-17 02:40] VITALS: BP 123/67; PULSE 90; RESP 18; TEMP 36.6; O2SAT 99
[2022-07-17 06:40] LABS: Absolute Lymphocyte Count 1.56 X10^3/uL (0.83-4.51); Absolute Neutrophil Count 9.1 X10^3/uL (2.0-7.7); Basophil# 0.03 X10^3/uL; Basophil% 0.3 % (0-1); Eosinophil# 0.16 X10^3/uL; Eosinophils% 1.4 % (0-5); Hematocrit 30.2 % (37-47); Hemoglobin 8.7 g/dL (12.0-15.0); Lymphocyte # 1.56 X10^3/ul (0.83-4.51); Lymphocyte % 13.5 % (19-41); Mean Corp Hgb Conc 28.8 g/dL (32-36); Mean Corpuscular Hgb 24.2 pg (27.0-32.0); Mean Corpuscular Volume 84.1 fL (81-99); Mean Platelet Vol. 8.9 fl (6.2-12.0); Monocyte# 0.67 X10^3/uL; Monocyte% 5.8 % (0-10); NRBC Flagged by Analyzer 0 % (0-5); Neutrophil # 9.06 X10^3/uL (2.7-7.7); Neutrophil % 78.7 % (47-70); POSITIVE MORPHOLOGY YES; Platelet Count 248 K/mm3 (150-450); RBC Distribution Width CV 22.5 % (11.6-14.6); Red Blood Count 3.59 M/mm3 (4.2-5.4); White Blood Count 11.5 K/mm3 (4.4-11.0)
[2022-07-17 06:46] LABS: Differential Indicated SCAN CRITERIA MET
[2022-07-17 06:58] LABS: Anisocytosis 1+; Differential Comment SCANNED; Hypochromasia 1+; Microcytosis 1+
[2022-07-17 07:01] LABS: Anion Gap 8 (5-15); BUN 14 mg/dL (7-18); BUN/Creat Ratio 19.9 RATIO (10-20); Calcium,Total 8.9 mg/dL (8.5-10.1); Chloride 105 mmol/L (98-107); EST Glomerular Filtration Rate 96 mL/min (>60); Est Glom Filt Rate - Afr Amer 117 mL/min (>60); Estimated Creatinine Clearance 69.75 ml/min; Glucose 121 mg/dL (74-106); Potassium 3.8 mmol/L (3.5-5.1); Sodium Level 138 mmol/L (136-145)
[2022-07-17 08:00] VITALS: PULSE 91
[2022-07-17] MEDS: Enoxaparin 40 MG/0.4 ML Syringe SC (08:10)
[2022-07-17] MEDS: Ferrous Sulfate 325 MG Tablet PO (08:10)
[2022-07-17] MEDS: Ensure Plus High Protein 120 ML LIQUID PO (08:22)
[2022-07-17 08:27] VITALS: BP 111/66; PULSE 91; RESP 18; TEMP 36.7; O2SAT 98
--- NOTE | 2022-07-17 09:05 | WOUNDNOTE ---
wound photo: sacrum
--- NOTE | 2022-07-17 09:06 | WOUNDNOTE ---
wound photo: right ischium
--- NOTE | 2022-07-17 09:06 | WOUNDNOTE ---
wound photo: right leg/foot
--- NOTE | 2022-07-17 10:15 | CASEMGMT ---
PANCHITO MARMOLEJO Assessment: Face to Face with pt for initial transition planning/care coordination assessment. PANCHITO MARMOLEJO introduced self and role at [facility], pt voices understanding and consents to assessment. Pt is A/O x4 and answers all questions appropriately at this time. Pt sitting up in bed in no distress with mother at bedside. Pt agreeable to assessment with mother present. Care providers, pharmacy, and demographics verified/updated. Admitting Dx: Ulcer PCP:Sarah Specialists:ally Wyatt; Asia [employer]; shahid Short Preferred Pharmacy: [facility] Insurance: [facility], [facility] [employer] Prescription Benefit: yes LNOK: Safia Caicedo, cg; Yadira Schuler, sister Living Arrangements: Pt lives alone in a single story home with a ramp to enter. Pt reports she is I in ADL's other than lower body dressing and trf's. Pt is w/c bound. Pt denies concerns at home. Transportation: Pt aides provide transportation to medical appts. DME/HHC/SNF: Pt has a Dexcom CGM with sufficient supplies. She has sufficient supply of insulin and needles as well. Pt has a shower chair and w/c. Pt has aides through [employer] daily from 9a-1p and 5p-9p. Pt is active with [facility] for SN. Pt has been to a SNF in [facility]. Pt states no concerns with going home at time of dc. She would like to continue her home services. She states [employer] cg's provide her daily dressing changes with aquacel silver and she gets her supplies from the [facility] agency. Pt has a CM named Stephanie Hill through [employer]. Pt states no further concerns/needs. CM to follow. Advised pt to ask CM if any further question/concerns/needs arise, voices understanding. Pt Goal: Home with HHC resuming and aides Plan: Home with HHC resuming and aides
--- NOTE | 2022-07-17 10:27 | PN.HOSP_ITS ---
Reason for Visit Reason for Visit: Diagnoses Cellulitis, unspecified (07/16/22) Pressure ulcer of unspecified site, unspecified stage (07/16/22) Subjective Subjective Feeling better overall though still not feeling particularly well Objective Data Objective Data Vital Signs: Vital Signs Temp Pulse Resp BP Pulse Ox O2 Del Method 98.1 F 91 18 111/66 98 Room Air 07/17/22 08:27 07/17/22 08:27 07/17/22 08:27 07/17/22 08:27 07/17/22 08:27 07/17/22 08:27 Oxygen Delivery Method Room Air Weight: 42.638 kg Body Mass Index (BMI) 21.0 Intake & Output: Intake and Output for Last 24 Hours 07/15/22 07/16/22 07/17/22 23:59 23:59 23:59 Intake Total 365 / 365 450 / 450 Output Total 590 / 590 Balance 365 / 365 -140 / -140 Lab / Micro Data Result Diagrams: 07/17/22 06:30 07/17/22 06:30 Labs: Laboratory Results - last 24 hr 07/16/22 12:20: WBC Cancelled, Corrected WBC Cancelled, RBC Cancelled, Hgb Cancelled, Hct Cancelled, MCV Cancelled, MCH Cancelled, MCHC Cancelled, RDW Std Deviation Cancelled, RDW Coeff of Maurizio Cancelled, Plt Count Cancelled, MPV Cancelled, Immature Gran % (Auto) Cancelled, Neut % (Auto) Cancelled, Lymph % (Auto) Cancelled, [place] % (Auto) Cancelled, Eos % (Auto) Cancelled, Baso % (Auto) Cancelled, Absolute Neuts (auto) Cancelled, Absolute Lymphs (auto) Cancelled, Total Counted Cancelled, Neutrophils % (Manual) Cancelled, Band Neutrophils % Cancelled, Lymphocytes % (Manual) Cancelled, Monocytes % (Manual) Cancelled, Eos inophils % (Manual) Cancelled, Basophils % (Manual) Cancelled, Metamyelocytes % Cancelled, Myelocytes % Cancelled, Promyelocytes % Cancelled, Blast Cells % Cancelled, Plasma Cell % (Manual) Cancelled, Other Cells % Cancelled, Nucleated RBC % Cancelled, Nucleated RBCs/100 WBC Cancelled, Differential Comment Cancelled, Diff Path Review Cancelled, Hypersegmented Neuts Cancelled, Atypical Lymphocytes Cancelled, Reactive Lymphocytes Cancelled, Smudge Cells Cancelled, Toxic Granulation Cancelled, Toxic Vacuolation Cancelled, Dohle Bodies Cancelled, Theresa Rods Cancelled, Platelet Estimate Cancelled, Plt Morphology Comment Cancelled, RBC Morphology Cancelled, Polychromasia Cancelled, Hypochromasia Cancelled, Poikilocytosis Cancelled, Basophilic Stippling Cancelled, Anisocytosis Cancelled, Microcytosis Cancelled, Macrocytosis Cancelled, Spherocytes Cancelled, Sickle Cells Cancelled, Target Cells C ancelled, Tear Drop Cells Cancelled, Ovalocytes Cancelled, Stomatocytes Cancelled, [place] Bodies Cancelled, [place] Cells Cancelled, Bite Cells Cancelled, Crenated Cell Cancelled, Acanthocytes (Spur) Cancelled, Rouleaux Cancelled, Schistocytes Cancelled, ESR Cancelled 07/16/22 12:20: Sodium 127 L, Potassium 5.4 H, Chloride 99, Carbon Dioxide 20.0 L, Anion Gap 8, BUN 19 H, Creatinine 0.83, Estim Creat Clear Calc 59.74, Est GFR (MDRD) Af Amer 96, Est GFR (MDRD) Non-Af 79, BUN/Creatinine Ratio 22.8 H, Glucose 498 H*, Calcium 8.8, Total Bilirubin 0.70, AST 34, ALT 22, Alkaline Phosphatase 184 H, C-React Prot High Sens Cancelled, Total Protein 8.0, Albumin 2.4 L, Globulin 5.6 H, Albumin/Globulin Ratio 0.4 L 07/16/22 12:45: WBC 16.7 H, RBC 3.71 L, Hgb 9.0 L, Hct 30.3 L, MCV 81.7, MCH 24.3 L, MCHC 29.7 L, RDW Std Deviation 64.6 H, RDW Coeff of Maurizio 22.4 H, Plt Count 273, MPV 9.3, Immature Gran % (Auto) 0.800, Neut % (Auto) 87.4 H, Lymph % (Auto) 5.3 L, [place] % (Auto) 6.1, Eos % (Auto) 0.2, Baso % (Auto) 0.2, Absolute Neuts (auto) 14.6 H, Absolute Lymphs (auto) 0.89, Nucleated RBC % 0, Differential Comment SCANNED, Anisocytosis 2+, Microcytosis 1+, Macrocytosis 1+, ESR 74 H 07/16/22 12:45: C-React Prot High Sens 180.00 H 07/16/22 12:45: Lactic Acid 0.9 07/17/22 06:30: WBC 11.5 H, RBC 3.59 L, Hgb 8.7 L, Hct 30.2 L, MCV 84.1, MCH 24.2 L, MCHC 28.8 L, RDW Std Deviation 67.0 H, RDW Coeff of Maurizio 22.5 H, Plt Count 248, MPV 8.9, Immature Gran % (Auto) 0.300, Neut % (Auto) 78.7 H, Lymph % (Auto) 13.5 L, [place] % (Auto) 5.8, Eos % (Auto) 1.4, Baso % (Auto) 0.3, Absolute Neuts (auto) 9.1 H, Absolute Lymphs (auto) 1.56, Nucleated RBC % 0, Differential Comment SCANNED, Hypochromasia 1+, Anisocytosis 1+, Microcytosis 1+ 07/17/22 06:30: Sodium 138, Potassium 3.8, Chloride 105, Carbon Dioxide 25.0, Anion Gap 8, BUN 14, Creatinine 0.70, Estim Creat Clear Calc 69.75, Est GFR (MDRD) Af Amer 117, Est GFR (MDRD) Non-Af 96, BUN/Creatinine Ratio 19.9, Glucose 121 H, Calcium 8.9 Radiography Diagnostic Testing: Radiology Impression Pelvis CT 07/16/22 13:26 IMPRESSION: Large heterogeneous mass in the lower abdomen and pelvis as described with fibroid uterus. Large ulcerated lesion in the lower posterior aspect of the abdomen. The spinal canal is seen abutting the depth of this ulcerated lesion. Soft tissue induration in the posterior aspect of the perineum more prominent on the right side with soft tissue ulceration. The patient has spina bifida. Electronically Signed: Brian Putnam MD at 13:48 EDT , Physical Exam Narrative General: Alert, oriented, no apparent distress HEENT: Atraumatic, normocephalic Eyes: Anicteric, normal conjunctiva, extraocular movements grossly intact Neck: Supple Respiratory: Clear to auscultation bilaterally, normal respiratory effort Cardiovascular: Regular rate and rhythm GI: Soft, nontender, nondistended Extremities: No edema Musculoskeletal: Moving freely in bed Neuro: Spina bifida Skin: Wounds dressed and right lower extremity wrapped Psych: Cooperative Assessment & Plan Assessment/Plan (1) Wound cellulitis: (2) Decubitus ulcer: PLAN: Plan 1. Decubitus ulcer with surrounding erythema/spina bifida L5-S1 lesion wheelchair-bound and self catheterization ? White count is elevated at 16.7 and she is tachycardic consistent with an infection of note her white count has been elevated since April, she was seei hematology for this and they feel that is likely reactive but wanted outpatient follow-up -Had been at [facility] 10 to 14 days ago and given antibiotics and improved and then once they were completed wound worsened ? We will start her on IV Zosyn ? We will consult wound care as well as plastics for possible to be debridement ? Had extensive conversation with her and her mother about the possibility of having a urostomy done as an outpatient as she has difficulty self cathing and it sounds like she has routine episodes of overflow incontinence ? We will have wound cultures as well as blood cultures obtained -07/17: White blood cell count improved slightly today, continue Zosyn, wound ca re, cultures pending. Tachycardia has improved. Pending plastics eval. Did have elevated ESR and CRP, will repeat in the a.m. as well. 2. DM2 ? Blood sugars are elevated in the setting of infection that she says that she has had fluctuations in the past ? We will continue with her long-acting insulin ? Accu-Cheks ACHS ? Sliding scale insulin ? We will make adjustments as necessary DVT: Lovenox subq 30 minutes was spent on direct patient care as well as chart review and collaboration with colleagues Charges/Coding Visit Charges Inpatient E&M: 65036 Subs Hosp L2
[2022-07-17] MEDS: Insulin Lispro 100 UNIT/ML INSULN.PEN SC ×2 (10:49→17:18)
--- NOTE | 2022-07-17 11:16 | CASEMGMT ---
Discharge Planning Ref[facility] as well as follow-up call to Jill. Idalia Farr
--- NOTE | 2022-07-17 11:24 | NURSING ---
Blood sugar was checked per patients request this morning at 1100am and it was 448. 11 units of insulin given, see emar. This RN came back to check and blood sugar per patients own dexacom was reading 376. will monitor.
[2022-07-17 11:30] LABS: Bedside Glucose 448 mg/dL (74-106)
[2022-07-17 13:26] LABS: Bedside Glucose 393 mg/dL (74-106)
--- NOTE | 2022-07-17 15:00 | CASEMGMT ---
Social Work [employer] TT reported to SW that pt has someone on the phone that wants to speak to SW. SW to pt room and pt presents phone for SW to speak to [facility] shoe caser, Stephanie. Stephanie asked for SW phone number and stated would like to speak to SW alone. Pt had given verbal permission for SW to speak to Stephanie regarding case. Stephanie called once SW back at desk and reported concerns for pt not following guidelines for self cathing and also shared there are concerns with pt hygiene (not cleaning self properly after toileting, throwing used toilet tissue in the closet and not disposing of it properly, etc.) Stephanie shared pt is not compliant with HHC most of the time and that due to these concerns the [facility] will be petitioning the Court for pt to have a Legal Guardian. SEKOU reports the discharge plan was set for pt to go home and resume HHC services once pt is medically ready. Stephanie stated this is a concern and Stephanie does not feel this is the best plan as pt is not taking care of self appropriately. SEKOU explained not familiar with pt case but that SEOKU would report these concerns to the pt's RN FRANCIE and MD on case so that these people can review. SEKOU will discuss with PANCHITO MARMOLEJO Sandra, tomorrow when Sandra returns. SEKOU sent message to MD Lauren to update as well. MICHELLE Mann
[2022-07-17] MEDS: Glucerna Shake 120 ML LIQUID PO ×2 (15:42→17:18)
[2022-07-17 15:47] VITALS: BP 118/75; PULSE 105; RESP 19; TEMP 36.6; O2SAT 97
[2022-07-17] MEDS: Juven (unflavored) Packet 1 PACKET PO (17:19)
[2022-07-17 21:00] VITALS: BP 150/78; PULSE 110; RESP 18; TEMP 36.8; O2SAT 97
[2022-07-17] MEDS: FLUoxetine 20 MG Capsule PO (21:07)
[2022-07-17] MEDS: Insulin Glargine-YFGN 100 UNIT/ML Pen 20 UNIT SC (21:07)
--- NOTE | 2022-07-17 21:11 | CON.PCM_ITS ---
Assessment & Plan Assessment/Plan (1) Right ischial pressure sore, stage 4: (2) Osteomyelitis of right side of pelvis: (3) Pressure ulcer of sacral region, unstageable: (4) Skin necrosis: (5) Urinary incontinence: (6) Spina bifida of lumbar spine: (7) Anemia of chronic disease: (8) Diabetes mellitus treated with insulin: PLAN: Plan Medical records reviewed. Labs and CT reviewed. Patient needs low air loss bed to help minimize pressure. She was started on Zosyn and will continue them. Patient has worsening pressure sores involving the right ischial area and sacral area most likely from pressure and urinary leakage. A levine catheter has been placed and I recommend keeping it in. It can be changed at home every thirty days and as needed. Since the right ischial pressure sore is recurrent and since there is osteomyelitis according to the patient, a Stage IV pressure sore and multiple pressure sores should qualify her for a low air loss bed for home use. With worsening of these pressure sores (Sacrum and right ischial area), I recommend operative intervention with excision of these pressure sores. I anticipate involvement of the underlying bones (sacral bone and right ischial bone) with osteomyelitis and partial ostectomies would be performed. Half the soft tissue and half the bone will be sent to Pathology for analysis to rule out carcinoma and to evaluate for osteomyelitis. Half the soft tissue and half the bone will be sent to Microbiology for culture. A positive culture will necessitate antibiotic therapy. If penitentiary IV antibiotics are necessary, patient will need a PICC line. Postoperative wound care can be with the VAC. After discharge she can followup at [facility]. If osteomyelitis is present, she would be a candidate for HBO treatments for chronic refractory osteomyelitis after wound care, surgery, and antibiotics have been done and the pressure sores are persistent. Also in preparation for eventual flap(s) for wound closure, HBO treatments can be used as well. For the surgery, blood loss can sometimes exceed 500 ml. Her Hgb is 8.7. Will type and cross for the surgery. I anticipate she will need transfusion postop. In the meantime, she should continue her Iron supplementation. Patient is diabetic and her glucose upon admission was 498. Her last HgbA1c was 8.0 done on 05/10/22. Will check another one. At the time of wound closure with muscle flap(s), which is elective, the HgbA1c needs to be less than 8. The criteria I used before proceeding with wound closure with muscle flap(s) are excise the pressure sore and associated abnormal bursal scar tissue to soft bleeding tissue and healing must be seen with the VAC or Dakin's dressing changes. Any infection present needs to be adequately treated. Nutrition needs to be maximized. Her last Prealbumin was 7.8 done on 03/27/22. It should be at least 15 and ideally greater than 20. And the HgbA1c needs to be less than 8 because the flap is an elective procedure. Urinary incontinence and fecal incontinence needs to be stabilized with a levine catheter and a diverting co lostomy before the flap closure. Realistically, the time frame will be 6 months maybe longer. Will plan on surgical excision of these worsening pressure sores (sacral and recurrent right ischial) tomorrow under anesthesia. Patient was informed of the risks and complications of the procedure including alternatives to surgery. These were discussed with the patient personally. Patient voices understanding and wishes to proceed. Potential risks and complications included but not inclusive of bleeding, infection, hematoma, bruising, swelling, wound breakdown, need for wound care, poor scarring, poor aesthetic outcome, intra operative cardiac or neurologic events, DVT, PE, and reaction to anesthesia. HPI Consult Data Date of Consult: 07/18/22 PCP / Referring MD: MD Pal Bryson MD Attending Care Provider: Dr. Devi Lauren MD HPI Narrative Reason for Consultation: Recurrent right ischial pressure sore and sacral pressure sore HPI Narrative: VICTORIANO DE LOS SANTOS, is a 42 F with history of spina bifida and diabetes mellitus was admitted to the hospital yesterday for worsening sacral pressure sore with nonviable tissue and skin necrosis and worsening recurrent right ischial p ressure sore along with worsening hyperglycemia. In the ED it was 498. She is wheelchair-bound. She stated she has issues at home with urinary incontinence with the urine leaking into the pressure sores and making them worse. She states she had excision of her right ischial pressure sore earlier in the year in [place]. She was told she had osteomyelitis and was treated with antibiotics and a flap for closure. The pressure sore has since recurred most likely from increased pressure at home since she has a regular bed and not a specialized low air loss bed and from urinary leakage from incontinence. She was seen in the ED a few days prior to this admission and was given antibiotics. In the ED her WBC was 16.7. Today it improved to 11.5. Back in April, it was 18.4. Hgb was 8.7. She is on Iron supplementation. A Urinalysis was done a few days ago when in the ED on 07/14/22. It showed rare bacteria. Her last HgbA1c was 8.0 on 05/10/22. Her last Prealbumin was 7.8 on 03/27/22. A wound culture was done in the ED. She was started on Zosyn. CT Pelvis was done on 07/16/22. It showed large ulcerated lesion in the lower posterior aspect of the abdomen. The spinal canal is seen abutting the depth of this ulcerated lesion. Soft tissue induration in the posterior aspect of the perineum more prominent on the right side with soft tissue ulceration. The patient has spina bifida. I was asked to evaluate this patient for surgical options for treatment. [facility] Medical History (Updated 07/18/22 @ 14:[address] Javon Mitchell MD) Anemia Anemia of chronic disease Anxiety and depression Buttock wound Cancer Decubitus ulcer of coccyx, stage 2 Decubitus ulcer of right buttock, stage 3 Diabetes mellitus treated with insulin Difficulty transferring Health care maintenance High cholesterol Insulin dependent diabetes mellitus Leukocytosis Medulloblastoma Osteomyelitis of right side of pelvis Pressure ulcer of sacral region, unstageable Right ischial pressure sore, stage 4 Skin necrosis Spina bifida of lumbar spine Type 1 diabetes mellitus Urinary incontinence Vertigo Home Medications insulin glargine 100 unit/mL (3 mL) subcutaneous pen (Lantus Solostar U-100 Insulin) 20 unit subcut QPM 04/20/22 [History Last Taken Unknown] blood sugar diagnostic (Egress Software TechnologiesTouch Verio test strips) #120 ea 05/31/22 [Rx Last Taken Unknown] fluoxetine 20 mg capsule 20 mg PO DAILY #60 caps 06/21/22 [Rx Last Taken Unknown] ferrous sulfate 325 mg (65 mg iron) tablet 325 mg PO DAILY #90 tabs 06/22/22 [Rx Last Taken Unknown] cephalexin 500 mg capsule 500 mg PO 4X/DAY 07/03/22 [History Last Taken Unknown] doxycycline monohydrate 100 mg capsule 100 mg PO BID 07/03/22 [History Last Taken Unknown] methylprednisolone 4 mg tablets in a dose pack (Methylpred DP) 4 mg PO DAILY 07/03/22 [History Last Taken Unknown] cephalexin 500 mg capsule 500 mg PO Q6 #40 CAPSULES 07/14/22 [Rx Last Taken Unknown] insulin aspart U-100 100 unit/mL subcutaneous solution (Novolog U-100 Insulin aspart) 6 unit (0.06 mL) subcut TIDWMEAL #10 mL 07/16/22 [Rx Last Taken Unknown] pen needle, diabetic 32 gauge x 5/32 (BD Ultra-Fine Charla Pen Needle) #400 ea 07/16/22 [Rx Last Taken Unknown] Allergy/AdvReac Type Severity Reaction Status Date / Time Latex, Natural Rubber Allergy Hives Verified 07/17/22 21:24 Family History Other Cancer Diabetes FH: defects Surgical History History of brain surgery History of release of tendon Status post repair of complex wound Social History Smoking Status: Never smoker alcohol intake: current alcohol intake frequency: holidays/special occasions only Alcohol type: wine substance use type: does not use do you feel safe at home: Yes ROS ROS Narrative REVIEW OF SYSTEMS General - Denies fever, fatigue, and weight loss. Eyes - Denies cataracts and glaucoma. ENT - Denies nasal congestion and sore throat. Endocrine - Denies excessive thirst and urination. Has diabetes mellitus. Skin - Denies skin cancer. Has recurrent right ischial pressure sore, Stage IV, and sacral pressure sore with skin necrosis, unstageable, but suspect Stage IV. Musculoskeletal - Denies joint pain, joint stiffness, weakness of muscles and joints, back pain, and arthritis. Neuro - Denies headaches. Has spina bifida. Cardiovascular - Denies chest pain, fatigue, and shortness of breath with exertion. Psych - Denies anxiety and depression. Respiratory - Denies chronic cough and shortness of breath. Gastrointestinal - Denies nausea, vomiting, diarrhea, and constipation. Hematologic - Denies abnormal bruising and bleeding. Has anemia. Genitourinary - Denies hematuria and urinary frequency. Has urinary incontinence. Physical Exam Narrative PHYSICAL EXAMINATION General - Alert and Oriented. HEENT - PERRL. EOMI. Throat is clear. Neck - Supple and nontender. No cervical adenopathy. Lungs - Clear to auscultation. Heart - Regular rate and rhythm. Abdomen - Soft and nondistended. Back and gluteal areas - There is a sacral pressure sore. Has overlying nonviable skin necrosis. Is unstageable at present but suspect Stage IV. Measures 3 x 4 cm. No purulent drainage or fluctuance. On the right ischial area is a pressure sore, Stage IV. Involves at least muscle. Underlying bone is palpable. I suspect bone is involved with osteom yelitis. Had flap earlier in the year. Measures 3 x 4 cm. Some undermining noted superiorly. No purulent drainage or fluctuance. There is a vertical scar from the pressure sore extending superiorly and a horizontal scar from the pressure sore extending laterally. Extremities - Has spina bifida. Neuro - CN II-XII grossly intact. Has spina bifida. Psych - Normal mood and affect. Medical Records Data Attestation: I reviewed the patient's medical records Lab / Micro Data Attestation: I reviewed the patient's lab results. Result Diagrams: 07/18/22 05:40 07/18/22 05:40 Labs: Laboratory Results - last 24 hr 07/17/22 06:30: WBC 11.5 H, RBC 3.59 L, Hgb 8.7 L, Hct 30.2 L, MCV 84.1, MCH 24.2 L, MCHC 28.8 L, RDW Std Deviation 67.0 H, RDW Coeff of Maurizio 22.5 H, Plt Count 248, MPV 8.9, Immature Gran % (Auto) 0.300, Neut % (Auto) 78.7 H, Lymph % (Auto) 13.5 L, [place] % (Auto) 5.8, Eos % (Auto) 1.4, Baso % (Auto) 0.3, Absolute Neuts (auto) 9.1 H, Absolute Lymphs (auto) 1.56, Nucleated RBC % 0, Differential Comment SCANNED, Hypochromasia 1+, Anisocytosis 1+, Microcytosis 1+ 07/17/22 06:30: Sodium 138, Potassium 3.8, Chloride 105, Carbon Dioxide 25.0, Anion Gap 8, BUN 14, Creatinine 0.70, Estim Creat Clear Calc 69.75, Est GFR (MDRD) Af Amer 117, Est GFR (MDRD) Non-Af 96, BUN/Creatinine Ratio 19.9, Glucose 121 H, Calcium 8.9 07/17/22 10:48: POC Glucose 448 H 07/17/22 13:07: POC Glucose [address] PELVIS WITH CONTRAST Date of Exam: 07/16/22 IMPRESSION: Large heterogeneous mass in the lower abdomen and pelvis as described with fibroid uterus. Large ulcerated lesion in the lower posterior aspect of the abdomen. The spinal canal is seen abutting the depth of this ulcerated lesion. Soft tissue induration in the posterior aspect of the perineum more prominent on the right side with soft tissue ulceration. The patient has spina bifida. ? Electronically Signed: Brian Putnam MD at 13:48 EDT , Micro: Microbiology 07/17/22 07:45 Wound - Buttock Gram Stain - Final Charges/Coding Visit Charges Inpatient E&M: 71951 Init Hosp L2 (ICD-10 - L89.314, M86.9, L89.150, I96, R32, E11.9, Q05.7, D63.8)
[2022-07-17] MEDS: Ondansetron 4 MG/2 ML Vial IV (23:53)
[2022-07-18] VITALS (9 sets, daily range): BP systolic 97–123; BP diastolic 53–67; PULSE 73–92; RESP 16–18; TEMP 36.4–37.1; O2SAT 94–99; BMI 21.0
[2022-07-18 03:37] LABS: Internal QC Validated? YES +Cl - CLEAR BKGD; Pregnancy, Urine Negative Negative
[2022-07-18 05:51] LABS: Absolute Lymphocyte Count 2.15 X10^3/uL (0.83-4.51); Absolute Neutrophil Count 6.1 X10^3/uL (2.0-7.7); Basophil# 0.04 X10^3/uL; Basophil% 0.4 % (0-1); Eosinophil# 0.24 X10^3/uL; Eosinophils% 2.6 % (0-5); Hematocrit 29.1 % (37-47); Hemoglobin 8.7 g/dL (12.0-15.0); Lymphocyte # 2.15 X10^3/ul (0.83-4.51); Lymphocyte % 23.3 % (19-41); Mean Corp Hgb Conc 29.9 g/dL (32-36); Mean Corpuscular Hgb 24.9 pg (27.0-32.0); Mean Corpuscular Volume 83.1 fL (81-99); Mean Platelet Vol. 9.1 fl (6.2-12.0); Monocyte# 0.65 X10^3/uL; NRBC Flagged by Analyzer 0 % (0-5); Neutrophil % 66.3 % (47-70); POSITIVE MORPHOLOGY YES; Platelet Count 261 K/mm3 (150-450); RBC Distribution Width CV 22.3 % (11.6-14.6); RBC Distribution Width SD 65.5 fl (35.1-43.9); White Blood Count 9.2 K/mm3 (4.4-11.0)
[2022-07-18 05:55] LABS: Differential Indicated SCAN CRITERIA MET
[2022-07-18 06:18] LABS: Erythrocyte Sedimentation Rate 80 mm/hr (0-30)
[2022-07-18 06:35] LABS: Prothrombin Time (Protime)PT. 13.5 SECONDS (11.7-14.9)
[2022-07-18 06:36] LABS: Partial Thromboplast Time 30.5 Seconds (24.1-36.2)
[2022-07-18 06:37] LABS: ALB/GLOB Ratio 0.6 RATIO (0.9-2.4); AST(SGOT) 11 U/L (15-37); Alanine Aminotransfer ALT/SGPT 16 U/L (13-56); Albumin, Serum 2.3 g/dL (3.2-5.0); Alkaline Phosphatase 129 U/L (45-117); Anion Gap 4 (5-15); BUN 18 mg/dL (7-18); BUN/Creat Ratio 24.4 RATIO (10-20); Calcium,Total 8.8 mg/dL (8.5-10.1); Chloride 108 mmol/L (98-107); Creatinine, Serum 0.74 mg/dL (0.55-1.02); EST Glomerular Filtration Rate 91 mL/min (>60); Est Glom Filt Rate - Afr Amer 110 mL/min (>60); Estimated Creatinine Clearance 65.98 ml/min; Globulin 4.1 g/dL (2.2-4.2); Glucose 102 mg/dL (74-106); Protein, Total 6.4 g/dL (6.4-8.2); Sodium Level 138 mmol/L (136-145)
[2022-07-18 06:39] LABS: Anisocytosis 1+; Differential Comment SCANNED
[2022-07-18 08:28] LABS: Hemoglobin A1c 7.8 % (3.8-5.6)
--- NOTE | 2022-07-18 09:12 | PN.HOSP_ITS ---
Reason for Visit Reason for Visit: Diagnoses Cellulitis, unspecified (07/16/22) Pressure ulcer of unspecified site, unspecified stage (07/16/22) Subjective Subjective Reports feeling very anxious today about debridement, had a hard time focusing o n anything else due to her anxiety Objective Data Objective Data Vital Signs: Vital Signs Temp Pulse Resp BP Pulse Ox O2 Del Method 97.6 F L 92 18 123/66 H 99 Room Air 07/18/22 05:16 07/18/22 05:16 07/18/22 05:16 07/18/22 05:16 07/18/22 05:16 07/18/22 05:16 Oxygen Delivery Method Room Air Weight: 42.638 kg Body Mass Index (BMI) 21.0 Intake & Output: Intake and Output for Last 24 Hours 07/16/22 07/17/22 07/18/22 23:59 23:59 23:59 Intake Total 365 / 365 1270 / 1270 550 / 550 Output Total 1190 / 1190 750 / 750 Balance 365 / 365 80 / 80 -200 / -200 Lab / Micro Data Result Diagrams: 07/18/22 05:40 07/18/22 05:40 Labs: Laboratory Results - last 24 hr 07/17/22 10:48: POC Glucose 448 H 07/17/22 13:07: POC Glucose 393 H 07/18/22 03:20: Urine Test Negative 07/18/22 05:40: WBC 9.2, RBC 3.50 L, Hgb 8.7 L, Hct 29.1 L, MCV 83.1, MCH 24.9 L , MCHC 29.9 L, RDW Std Deviation 65.5 H, RDW Coeff of Maurizio 22.3 H, Plt Count 261, MPV 9.1, Immature Gran % (Auto) 0.400, Neut % (Auto) 66.3, Lymph % (Auto) 23.3, [place] % (Auto) 7.0, Eos % (Auto) 2.6, Baso % (Auto) 0.4, Absolute Neuts (auto) 6.1, Absolute Lymphs (auto) 2.15, Nucleated RBC % 0, Differential Comment SCANNED, Anisocytosis 1+, ESR 80 H 07/18/22 05:40: Sodium 138, Potassium 4.0, Chloride 108 H, Carbon Dioxide 26.0, Anion Gap 4 L, BUN 18, Creatinine 0.74, Estim Creat Clear Calc 65.98, Est GFR (MDRD) Af Amer 110, Est GFR (MDRD) Non-Af 91, BUN/Creatinine Ratio 24.4 H, Glucose 102, Calcium 8.8, Total Bilirubin 0.20, AST 11 L, ALT 16, Alkaline Phosphatase 129 H, C-React Prot Ext Range 82.90 H, Total Protein 6.4, Albumin 2.3 L, Globulin 4.1, Albumin/Globulin Ratio 0.6 L 07/18/22 05:40: Hemoglobin A1c 7.8 H 07/18/22 05:40: PT 13.5, INR 1.0, APTT 30.5 Micro: Microbiology 07/17/22 07:45 Wound - Buttock Gram Stain - Final Physical Exam Narrative General: Alert, oriented, no apparent distress HEENT: Atraumatic, normocephalic Eyes: Anicteric, normal conjunctiva, extraocular movements grossly intact Neck: Supple Respiratory: Clear to auscultation bilaterally, normal respiratory effort Cardiovascular: Regular rate and rhythm GI: Soft, nontender, nondistended Extremities: No edema Musculoskeletal: Moving freely in bed Neuro: Spina bifida Skin: Wounds dressed and right lower extremity wrapped Psych: Cooperative Assessment & Plan Assessment/Plan (1) Wound cellulitis: (2) Decubitus ulcer: PLAN: Plan 1. Decubitus ulcer with surrounding erythema/spina bifida L5-S1 lesion wheelchair-bound and self catheterization ? White count is elevated at 16.7 and she is tachycardic consistent with an infection of note her white count has been elevated since April, she was seeing hematology for this and they feel that is likely reactive but wanted outpatient follow-up -Had been at [facility] 10 to 14 days ago and given antibiotics and improved and then once they were completed wound worsened ? We will start her on IV Zosyn ? We will consult wound care as well as plastics for possible to be debridement ? Had extensive conversation with her and her mother about the possibility of having a urostomy done as an outpatient as she has difficulty self cathing and it sounds like she has routine episodes of overflow incontinence ? We will have wound cultures as well as blood cultures obtained -07/17: White blood cell count improved slightly today, continue Zosyn, wound care, cultures pending. Tachycardia has improved. Pending plastics eval. Did have elevated ESR and CRP, will repeat in the a.m. as well. -07/18: Patient for OR with Dr. Mitchell, continue antibiotics. Preop cultures pending and further Intra-Op cultures to be sent based on the 2. DM2 ? Blood sugars are elevated in the setting of infection that she says that she has had fluctuations in the past ? We will continue with her long-acting insulin ? Accu-Cheks ACHS ? Sliding scale insulin ? We will make adjustments as necessary DVT: Lovenox subq 30 minutes was spent on direct patient care as well as chart review and collaboration with colleagues Charges/Coding Visit Charges Inpatient E&M: 33900 Subs Hosp L2
--- NOTE | 2022-07-18 09:39 | WOUNDNOTE ---
Pt having surgery this am per Dr Mitchell. will leave dressings intact at this time.
--- NOTE | 2022-07-18 10:16 | CASEMGMT ---
Social Work Pt does not have LW/HCPOA. SW spoke to pt's [facility] Board of DD case management manager, Stephanie, yesterday. Stephanie explained the Board of DD is currently working to contact the probate court to begin the process to obtain a Legal Guardian for pt. MICHELLE Mann
--- NOTE | 2022-07-18 12:30 | BON_PTH ---
PATIENT: VICTORIANO DE LOS SANTOS LOC: MS3 U#:[id number] AGE/SX: 42/F ROOM: OH321 RE07/16/[address]: Dr. Lucas Key MD : [id number] BED: 1 DIS: 07/27/2022 SPEC #: [id number] RECD: 07/18/22 15:32 STATUS: CLARE REMera #: [id number] SRIDHAR: 07/18/22 12:[address]: Javon Mitchell DEPT: SURGICAL PATHOLOGY RECD BY: Crystal Grey ENTERED: 07/19/22 09:42 SP TYPE: Bone OTHR DR: MD Dr. Javon Bryson MD Dr. Nicholas F Kotsonis, MD Dr. Paige Pierce, MD Dr. Robert Leininger, MD Tissues: A - Sacral region B - Sacral region C - Ischium, NOS D - Ischium, NOS Procedures: Decalcification bone/plaque Surgery Specimen Level IV Surgery Specimen Level V Comments: @ Ordering doctor for DEC edited from to DR.JSLABY Keli ERAZO at 07/19/22 151 @ Ordering doctor for SUIV edited from to DR.JSLABY Keli ERAZO at 07/19/22 151 @ Submitting doctor edited from to DR.JSLABY Keli ERAZO at 07/19/223 HEADER OPERATION: Excision ischial pressure sore and sacral sore PRE-OP DIAGNOSIS: Right ischial pressure sore, stage 4; osteomyelitis of right side of pelvis; pressure ulcer of sacral region, skin necrosis TISSUE SUBMITTED: A ? Sacral bone, B ? Sacral soft tissue, C ? Right ischial pressure sore bone, D - Right ischial pressure sore soft tissue MICROSCOPIC DIAGNOSIS A. Sacral bone, bone biopsy: Benign fragments of bone and cartilage. B. Skin and soft tissue of sacral region, biopsy: Ulceration with acute and chronic inflammation and granulation. C. Right ischial pressure sore region, bone biopsy: Reparative and reactive change. No evidence of osteomyelitis. Trilineage hematopoiesis. D. Right ischial pressure sore skin and soft tissue, excision: Ulceration with associated acute and chronic inflammation and granulation. AM:yoel 07/23/2022 MICROSCOPIC DESCRIPTION Slides are reviewed. GROSS DESCRIPTION A - Received in fixative is one container labeled with the patient's name and designated sacral bone. The specimen consists of multiple irregular fragments of bone that in aggregate measure 2.0 x 1.5 x 0.4 cm. The specimen is totally submitted in one cassette after decalcification. B - Received in fixative is one container labeled with the patient's name and designated sacral soft tissue. The specimen consists of a piece of skin with underlying tissue measuring 3.5 x 2.7 x 1.2 cm. A smaller piece of tissue is also present in the specimen measuring 1.0 x 1.0 x 0.6 cm. The skin surface shows extensive ulceration. Fermentologist sections are submitted in two cassettes. C - Received in fixative is one container labeled with the patient's name and designated right ischial pressure sore bone. The specimen consists of three pieces of bone measuring in aggregate 3.0 x 2.5 x 0.7 cm. The entire specimen is submitted in two cassettes after decalcification. D - Received in fixative is one container labeled with the patient's name and designated right ischial pressure sore soft tissue. The specimen consists of a piece of skin with underlying tissue measuring 4.0 x 2.5 cm and up to 4.5 cm in depth. The skin surface shows extensive ulceration. Also present in the container is a detached piece of soft tissue measuring 4.0 x 2.5 x 1.0 cm. Fermentologist sections are submitted in two cassettes. / SJ:yoel 07/19/2022 TC:2 CPT: 08128 x2, 96872 x2, 02349 x2
--- NOTE | 2022-07-18 14:20 | CASEMGMT ---
Social work Unit Sec. Fox shared pt mother called and wanted to speak to SW. Mother informed pt is not able to relay information and mother was upset that SW had spoke to pt without mother present. SW had limited contact with pt, only speaking pleasantries while getting contact info for pt's Board of DD outpatient case manager. SONIA attempted to call pt mother, Scarlet, back to discuss. No answer. SONIA left message. Scarlet called back immediately. Scarlet asked questions related to pt discharge. Sonia explained at this point it will be difficult to tell what pt needs will be until pt is finished with surgery. SONIA explained if SNf is needed for wound care that a SW would bring a list and family can chose preferences and referrals will be sent. Scarlet asked if it is possible for pt to return home with wound care 2-3x per week. SONIA shared it is possible but it will be better to make this determination after surgery. Scarlet voiced understanding, stated prefers pt would be able to go home. PLAN: MICHELLE Chirinos
[2022-07-18] MEDS: Lidocaine 1% /Epi 1:100 (20ml) 20 ML Vial 10 ML INFILT (14:33)
--- NOTE | 2022-07-18 14:50 | PCM.OPRPT ---
Problems Associated Problem List Diagnoses (1) Right ischial pressure sore, stage 4: (2) Osteomyelitis of right side of pelvis: (3) Pressure ulcer of sacral region, stage 4: (4) Skin necrosis: (5) Urinary incontinence: (6) Diabetes mellitus treated with insulin: (7) Spina bifida of lumbar spine: (8) Anemia of chronic disease: Report of Operation Date of Procedure: 07/18/22 Pre-Operative Diagnosis: 1. Recurrent right ischial pressure sore, Stage IV. 2. Osteomyelitis right ischial bone of pelvis. 3. Sacral pressure sore with nonviable skin necrosis, Unstageable. 4. Skin necrosis. 5. Urinary incontinence. 6. Diabetes mellitus. 7. Spina bifida. 8. Anemia of chronic disease. Post-Operative Diagnosis: 1. Recurrent right ischial pressure sore, Stage IV. 2. Osteomyelitis right ischial bone of pelvis. 3. Sacral pressure sore with nonviable skin necrosis, Stage IV. 4. Skin necrosis. 5. Urinary incontinence. 6. Diabetes mellitus. 7. Spina bifida. 8. Anemia of chronic disease. Surgery/Procedure Performed:: 1. Excision recurrent right ischial pressure sore, Stage IV, with partial ostectomy for osteomyelitis. 2. Excision sacral pressure sore with nonviable skin necrosis, Stage IV, with partial ostectomy for osteomyelitis. Description of Surgical Findings:: VICTORIANO DE LOS SANTOS, is a 42 F with history of spina bifida and diabetes mellitus was admitted to the hospital yesterday for worsening sacral pressure sore with nonviable tissue and skin necrosis and worsening recurrent right ischial pressure sore along with worsening hyperglycemia. In the ED it was 498.? She is wheelchair-bound.? She stated she has issues at home with urinary incontinence with the urine leaking into the pressure sores and making them worse.? She states she had excision of her right ischial pressure sore earlier in the year in [place].? She was told she had osteomyelitis and was treated with antibiotics and a flap for closure.? The pressure sore has since recurred most likely from increased pressure at home since she has a regular bed and not a specialized low air loss bed and from urinary leakage from incontinence.? She was seen in the ED a few days prior to this admission and was given antibiotics.? In the ED her WBC was 16.7.? Today it improved to 11.5.? Back in April, it was 18.4.? Hgb was 8.7.? She is on Iron supplementation.? A Urinalysis was done a few days ago when in the ED on 07/14/22.? It showed rare bacteria.? Her last HgbA1c was 8.0 on 05/10/22.? Her last Prealbumin was 7.8 on 03/27/22.? A wound culture was done in the ED.? She was started on Zosyn.? CT Pelvis was done on 07/16/22.? It showed large ulcerated lesion in the lower posterior aspect of the abdomen. The spinal canal is seen abutting the depth of this ulcerated lesion.? Soft tissue induration in the posterior aspect of the perineum more prominent on the right side with soft tissue ulceration.? The patient has spina bifida. I was asked to evaluate this patient for surgical options for treatment. Patient was informed of the risks and complications of the procedure including alternatives to surgery. These were discussed with the patient personally. Patient voices understanding and wishes to proceed. Potential risks and complications included but not inclusive of bleeding, infection, hematoma, bruising, swelling, wound breakdown, need for wound care, poor scarring, poor aesthetic outcome, intra operative cardiac or neurologic events, DVT, PE, and reaction to anesthesia. Size of right ischial wound - 5.5 x 4 x 3 cm. Size of sacral wound - 5 x 4 x 2.5 cm. Surgeon: Javon Mitchell MD dental mechanic: None Type of Anesthesia: Local MAC (xylocaine with epinephrine and IV sedation) Anesthesiologist: Ramone Noland MD and Clovis Nick CRNA Specimen's removed: 1. Recurrent right ischial pressure sore, Stage IV, to Pathology and Microbiology. 2. Sacral pressure sore with nonviable skin necrosis, Stage IV, to Pathology and Microbiology. Drains: None. Estimated Blood Loss (mL): 150. Fluids Replaced: 1350 ml (IV Fluids 850 ml, Urine Output 500 ml) Description of Procedure: Patient was taken to OR in supine position and was given IV sedation. She was then placed in the prone position. The lower back and gluteal areas were prepped and draped in the usual fashion. SCD's were placed for DVT prophylaxis. Perioperative antibiotics were given intravenously. The sacral pressure sore and recurrent right ischial pressure sore were infiltrated with xylocaine and epinephrine. After waiting 5 minutes for the anesthetic to take effect, I proceeded with excising the sacral pressure sore with a scalpel through the subcutaneous tissue and muscle down to bone. There was a lot of fat necrosis present. There was exudate present and abnormal bursal scar tissue extending to the bone. No pus was seen. The nonviable skin necrosis was excised with the rest of the pressure sore. It was unstageable preoperatively as I suspected a Stage IV pressure sore. After excision, the pressure extended down to the bone making it Stage IV. When I got to the bone I used a rongeur and proceeded with a partial ostectomy for osteomyelitis. I took pieces of bone over several areas to make a outside sales account representative sample. A rasp was used to smooth out the bony edges. Half the soft tissue and half the bone was sent to Pathology for analysis to rule out carcinoma and to evaluate for osteomyelitis. Half the soft tissue and half the bone was sent to Microbiology for culture. A positive culture will necessitate antibiotic therapy. The wound was irrigated with saline. Hemostasis was obtained with electrocautery. The size of the wound after excision of the sacral pressure sore was 5 x 4 x 2.5 cm. I then proceeded to excise the recurrent right ischial pressure sore. I used a scalpel and went through the subcutaneous tissue and muscle down to bone. There was a lot of fat necrosis present. There was exudate present and abnormal bursal scar tissue extending to the bone. No pus was seen. When I got to the bone I used an osteotome and a mallet in a tangential fashion for the partial ostectomy for osteomyelitis. A rasp was used to smooth out the bony edges. Half the soft tissue and half the bone was sent to Pathology for analysis to rule out carcinoma and to evaluate for osteomyelitis. Half the soft tissue and half the bone was sent to Microbiology for culture. A positive culture will necessitate antibiotic therapy. The wound was irrigated with saline. Hemostasis was obtained with electrocautery. The size of the wound after excision of the recurrent right ischial pressure sore was 5.5 x 4 x 3 cm. I then used bone wax over both bony areas to help with hemostasis as well. I dressed both wounds with Mepitel nonadherent dressing followed by Kerlix gauze and Betadine followed by dry Kerlix gauze and ABD pads and Medipore tape for a compression dressing. Patient tolerated the procedure well and was sent to PACU in satisfactory condition. Patient will be sent upstairs for continued postop care. Will place the VAC tomorrow. I had operative blood loss of about 150 ml. Her Hgb was 8.7 at the time of surgery. If it decreases below 8, will consider PRBCs to help with healing and to give her more energy and to strengthen her immune system. Grafts/Implants Used: None. Procedure Start Time: 13:40 Procedure Stop Time: 14:34 Complications None. Admit VTE Documentation VTE Present on Admission: No VTE Mechan Device Prophylaxis: SCD's VTE Pharm Prophylaxis ordered?: Yes Addendum Addendum: Surgery Charges CPT - 43785 ICD-10 - L89.314, M86.9, L89.154, I96, R32, E11.9, Q05.7, D63.8 38687 L89.154, I96, L89.314, M86.9, R32, E11.9, Q05.7, D63.8
[2022-07-18] MEDS: Juven (unflavored) Packet 1 PACKET PO (15:59)
[2022-07-18] MEDS: Glucerna Shake 120 ML LIQUID PO ×2 (18:14→20:59)
[2022-07-18] MEDS: Insulin Glargine-YFGN 100 UNIT/ML Pen 20 UNIT SC (20:37)
--- NOTE | 2022-07-18 20:40 | NURSING ---
Pt has dexicomp on right upper quadrant. BS was 154 at 2040. Gave 10 units Glargine because patient reports Dr. Smith wanted them on 10 units, although patient wasn't 100% on this number. Will monitor
[2022-07-18] MEDS: FLUoxetine 20 MG Capsule PO (20:58)
[2022-07-18] MEDS: Insulin Lispro 100 UNIT/ML INSULN.PEN SC (20:58)
[2022-07-19] VITALS (11 sets, daily range): BP systolic 104–140; BP diastolic 57–83; PULSE 93–115; RESP 16–18; TEMP 36.6–37.2; O2SAT 94–97
--- NOTE | 2022-07-19 06:00 | EKG12_ITS ---
Test Reason : AM EKG Blood Pressure : / mmHG Vent. Rate : 093 BPM Atrial Rate : 093 BPM P-R Int : 116 ms QRS Dur : 066 ms QT Int : 346 ms P-R-T Axes : 058 066 057 degrees QTc Int : 430 ms Normal sinus rhythm Normal ECG No previous ECGs available Confirmed by LEIGH NEW, ANALILIA ([id number]), design editor ROCHELLE JARRETT ([id number]) on 07/20/2022 8:27:13 AM Referred By: BRIDGETTE Confirmed By:ANALILIA ABRAHAM MD
[2022-07-19 06:05] LABS: Absolute Lymphocyte Count 1.56 X10^3/uL (0.83-4.51); Absolute Neutrophil Count 7.2 X10^3/uL (2.0-7.7); Basophil# 0.03 X10^3/uL; Basophil% 0.3 % (0-1); Eosinophil# 0.22 X10^3/uL; Eosinophils% 2.2 % (0-5); Hematocrit 26.8 % (37-47); Hemoglobin 7.9 g/dL (12.0-15.0); Lymphocyte # 1.56 X10^3/ul (0.83-4.51); Mean Corp Hgb Conc 29.5 g/dL (32-36); Mean Corpuscular Hgb 24.2 pg (27.0-32.0); Mean Platelet Vol. 9.1 fl (6.2-12.0); Monocyte# 0.71 X10^3/uL; Monocyte% 7.3 % (0-10); NRBC Flagged by Analyzer 0 % (0-5); Neutrophil % 73.6 % (47-70); POSITIVE MORPHOLOGY YES; Platelet Count 248 K/mm3 (150-450); RBC Distribution Width CV 22.3 % (11.6-14.6); RBC Distribution Width SD 64.9 fl (35.1-43.9); Red Blood Count 3.27 M/mm3 (4.2-5.4); White Blood Count 9.8 K/mm3 (4.4-11.0)
[2022-07-19] MEDS: Nystatin Powder 15gm Bottle 1 APPLIC TOPICAL ×2 (06:12→21:23)
[2022-07-19 06:18] LABS: Differential Indicated SCAN CRITERIA MET
[2022-07-19 06:49] LABS: ALB/GLOB Ratio 0.6 RATIO (0.9-2.4); AST(SGOT) 18 U/L (15-37); Alanine Aminotransfer ALT/SGPT 18 U/L (13-56); Albumin, Serum 2.2 g/dL (3.2-5.0); Alkaline Phosphatase 113 U/L (45-117); Anion Gap 4 (5-15); BUN 22 mg/dL (7-18); BUN/Creat Ratio 20.4 RATIO (10-20); Calcium,Total 8.6 mg/dL (8.5-10.1); Chloride 106 mmol/L (98-107); Creatinine, Serum 1.08 mg/dL (0.55-1.02); EST Glomerular Filtration Rate 59 mL/min (>60); Est Glom Filt Rate - Afr Amer 71 mL/min (>60); Estimated Creatinine Clearance 45.21 ml/min; Globulin 3.8 g/dL (2.2-4.2); Glucose 270 mg/dL (74-106); Potassium 4.4 mmol/L (3.5-5.1); Prealbumin 8.3 mg/dL (20.0-40.0); Sodium Level 137 mmol/L (136-145)
[2022-07-19 07:09] LABS: Anisocytosis 1+; Differential Comment SCANNED
[2022-07-19 07:10] LABS: Hypochromasia RARE
--- NOTE | 2022-07-19 07:18 | NURSING ---
dexcom reading 164. blood sugar check is 276. notified dayshift RN.
[2022-07-19 07:35] LABS: Bedside Glucose 276 mg/dL (74-106)
--- NOTE | 2022-07-19 08:06 | PN.HOSP_ITS ---
Reason for Visit Reason for Visit: Diagnoses Anemia in other chronic diseases classified elsewhere (07/16/22) Type 2 diabetes mellitus without complications (07/16/22) Gangrene, not elsewhere classified (07/16/22) Cellulitis, unspecified (07/16/22) Pressure ulcer of sacral region, unstageable (07/16/22) Pressure ulcer of right buttock, stage 4 (07/16/22) Pressure ulcer of unspecified site, unspecified stage (07/16/22) Osteomyelitis, unspecified (07/16/22) Lumbar spina bifida without hydrocephalus (07/16/22) Unspecified urinary incontinence (07/16/22) correction (current) use of insulin (07/16/22) Subjective Subjective Patient presently surprised at pain level being tolerable, no other specific complaints Objective Data Objective Data Vital Signs: Vital Signs Temp Pulse Resp BP Pulse Ox O2 Del Method 97.8 F 95 16 104/57 L 96 Room Air 07/19/22 04:04 07/19/22 04:04 07/19/22 04:04 07/19/22 04:04 07/19/22 04:04 07/19/22 04:04 Oxygen Delivery Method Room Air Weight: 42.638 kg Body Mass Index (BMI) 21.0 Intake & Output: Intake and Output for Last 24 Hours 07/17/22 07/18/22 07/19/22 23:59 23:59 23:59 Intake Total 1270 / 1270 891.75 / 1191.75 450 / 450 Output Total 1190 / 1190 1450 / 1625 375 / 375 Balance 80 / 80 -558.25 / -433.25 75 / 75 Lab / Micro Data Result Diagrams: 07/19/22 05:45 07/19/22 05:45 Labs: Laboratory Results - last 24 hr 07/18/22 05:40: Hemoglobin A1c 7.8 H 07/19/22 05:45: WBC 9.8, RBC 3.27 L, Hgb 7.9 L, Hct 26.8 L, MCV 82.0, MCH 24.2 L , MCHC 29.5 L, RDW Std Deviation 64.9 H, RDW Coeff of Maurizio 22.3 H, Plt Count 248, MPV 9.1, Immature Gran % (Auto) 0.600, Neut % (Auto) 73.6 H, Lymph % (Auto) 16.0 L, [place] % (Auto) 7.3, Eos % (Auto) 2.2, Baso % (Auto) 0.3, Absolute Neuts (auto) 7.2, Absolute Lymphs (auto) 1.56, Nucleated RBC % 0, Differential Comment SCANN ED, Hypochromasia RARE, Anisocytosis 1+ 07/19/22 05:45: Sodium 137, Potassium 4.4, Chloride 106, Carbon Dioxide 27.0, Anion Gap 4 L, BUN 22 H, Creatinine 1.08 H, Estim Creat Clear Calc 45.21, Est GFR (MDRD) Af Amer 71, Est GFR (MDRD) Non-Af 59 L, BUN/Creatinine Ratio 20.4 H, Glucose 270 H, Calcium 8.6, Total Bilirubin 0.20, AST 18, ALT 18, Alkaline Phosphatase 113, Total Protein 6.0 L, Albumin 2.2 L, Globulin 3.8, Albumin/Globulin Ratio 0.6 L, Prealbumin 8.3 L 07/19/22 07:12: POC Glucose 276 H Micro: Microbiology 07/16/22 12:30 Blood Culture (Wb) - Right Forearm Blood Culture - Preliminary No growth in 48 hours. 07/16/22 14:26 Blood Culture (Wb) - Anticubital Left Blood Culture - Preliminary No growth in 48 hours. 07/17/22 07:45 Wound - Buttock Gram Stain - Final 07/17/22 07:45 Wound - Buttock Wound Culture - Preliminary Presumptive C albicans Physical Exam Narrative General: Alert, oriented, no apparent distress HEENT: Atraumatic, normocephalic Eyes: Anicteric, normal conjunctiva, extraocular movements grossly intact Neck: Supple Respiratory: Clear to auscultation bilaterally, normal respiratory effort Cardiovascular: Regular rate and rhythm GI: Soft, nontender, nondistended Extremities: No edema Musculoskeletal: Moving freely in bed Neuro: Spina bifida Skin: Status post sacral debridement Psych: Cooperative Assessment & Plan Assessment/Plan (1) Wound cellulitis: (2) Decubitus ulcer: PLAN: Plan 1. Recurrent right ischial pressure sore, 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 White count is elevated at 16.7 and she is tachycardic consistent with an infection of note her white count has been elevated since April, she was seeing hematology for this and they feel that is likely reactive but wanted outpatient follow-up -Had been at [facility] 10 to 14 days ago and given antibiotics and improved and then once they were completed wound worsened ? We will start her on IV Zosyn ? We will consult wound care as well as plastics for possible to be debridement ? Had extensive conversation with her and her mother about the possibility of having a urostomy done as an outpatient as she has difficulty self cathing and it sounds like she has routine episodes of overflow incontinence ? We will have wound cultures as well as blood cultures obtained -07/17: White blood cell count improved slightly today, continue Zosyn, wound care, cultures pending. Tachycardia has improved. Pending plastics eval. Did have elevated ESR and CRP, will repeat in the a.m. as well. -07/18: Patient for OR with Dr. Mitchell, continue antibiotics. Preop cultures pending and further Intra-Op cultures to be sent based on the -07/19: Status postdebridement in OR. Did have bump in creatinine, will give IV fluids. Remains on Zosyn. Initial wound culture grew Naty but debridement and bone cultures still pending, given this in addition to right ischial bone osteomyelitis will consult infectious disease 2. DM2 ? Blood sugars are elevated in the setting of infection that she says that she has had fluctuations in the past ? We will continue with her long-acting insulin ? Accu-Cheks ACHS ? Sliding scale insulin ? We will make adjustments as necessary DVT: Lovenox subq 30 minutes was spent on direct patient care as well as chart review and collaboration with colleagues Charges/Coding Visit Charges Inpatient E&M: 03371 Subs Hosp L2
--- NOTE | 2022-07-19 08:27 | WOUNDNOTE ---
wound photo: right ischium
--- NOTE | 2022-07-19 08:28 | WOUNDNOTE ---
wound photo: sacrum
[2022-07-19 09:06] LABS: Hemoglobin A1c 8.5 % (3.8-5.6)
[2022-07-19] MEDS: Insulin Lispro 100 UNIT/ML INSULN.PEN SC ×2 (09:16→12:30)
[2022-07-19] MEDS: Insulin Lispro 100 UNIT/ML INSULN.PEN 6 UNIT SC ×3 (09:16→17:42)
[2022-07-19] MEDS: Enoxaparin 40 MG/0.4 ML Syringe SC (09:17)
[2022-07-19] MEDS: 0.9% Normal Saline 1,000 ML 999 ML IV (09:17)
[2022-07-19] MEDS: Juven (unflavored) Packet 1 PACKET PO ×2 (09:17→17:44)
[2022-07-19] MEDS: Ferrous Sulfate 325 MG Tablet PO (09:17)
[2022-07-19] MEDS: Glucerna Shake 120 ML LIQUID PO ×4 (09:21→22:01)
[2022-07-19] MEDS: Vancomycin IV 1,000 MG/200 ML BAG 200 MG IV (10:41)
--- NOTE | 2022-07-19 10:58 | CON.PCM.ID_ITS ---
Assessment & Plan Assessment/Plan (1) Spina bifida: (2) Type 1 diabetes mellitus: (3) Osteomyelitis of pelvic region: PLAN: OR 07/18/[address] Mitchell for I&D of ischium and sacrum. Surg cx pending. 04/2022 had wound cx with PsA and MRSA. Will cont zosyn and will add vanc for MRSA coverage. For fci healing, will recommend eval for diverting ostomy and suprapubic catheter. Will follow, thank you, d/w wound care HPI Consult Data Date of Consult: 07/19/22 HPI Narrative Reason for Consultation: osteo HPI Narrative: VICTORIANO DE LOS SANTOS, is a 42 F with spina bifida, prior treatment for osteo about 2 years ago at [facility], presented 07/16 with several weeks worsening decub ulcers. No fever, no chills, some drainage and odor. Does some straight cath at home but otherwise is incontinent of urine and can sit in wet pad for a while. Does not have feeling in legs. Seen in ED 07/14, given keflex. Sx worsened, admitted on zosyn. Taken to OR 07/18/[address] Mitchell for I&D. Lives independently with home health. Mother at bedside provided additional history. Full ROS performed and neg except as noted above. 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 Pressure ulcer of sacral region, unstageable Right ischial pressure sore, stage 4 Skin necrosis Spina bifida of lumbar spine Type 1 diabetes mellitus Urinary incontinence Vertigo Home Medications insulin glargine 100 unit/mL (3 mL) subcutaneous pen (Lantus Solostar U-100 Insulin) 20 unit subcut QPM 04/20/22 [History Last Taken Unknown] blood sugar diagnostic (BiglionTouch Verio test strips) #120 ea 05/31/22 [Rx Last Taken Unknown] fluoxetine 20 mg capsule 20 mg PO DAILY #60 caps 06/21/22 [Rx Last Taken Unknown] ferrous sulfate 325 mg (65 mg iron) tablet 325 mg PO DAILY #90 tabs 06/22/22 [Rx Last Taken Unknown] cephalexin 500 mg capsule 500 mg PO 4X/DAY 07/03/22 [History Last Taken Unknown] doxycycline monohydrate 100 mg capsule 100 mg PO BID 07/03/22 [History Last Taken Unknown] methylprednisolone 4 mg tablets in a dose pack (Methylpred DP) 4 mg PO DAILY 07/03/22 [History Last Taken Unknown] cephalexin 500 mg capsule 500 mg PO Q6 #40 CAPSULES 07/14/22 [Rx Last Taken Unknown] insulin aspart U-100 100 unit/mL subcutaneous solution (Novolog U-100 Insulin aspart) 6 unit (0.06 mL) subcut TIDWMEAL #10 mL 07/16/22 [Rx Last Taken Unknown] pen needle, diabetic 32 gauge x 5/32 (BD Ultra-Fine Charla Pen Needle) #400 ea 07/16/22 [Rx Last Taken Unknown] Allergy/AdvReac Type Severity Reaction Status Date / Time Latex, Natural Rubber Allergy Hives Verified 07/17/22 21:24 Family History Other Cancer Diabetes FH: defects Surgical History History of brain surgery History of release of tendon Status post repair of complex wound Social History Smoking Status: Never smoker alcohol intake: current alcohol intake frequency: holidays/special occasions only Alcohol type: wine substance use type: does not use do you feel safe at home: Yes Physical Exam Const alert, oriented x3 and no apparent distress General Appearance: cooperative HEENT normocephalic and head/scalp atraumatic Eyes PERRL and EOMs intact bilaterally Neck supple and No nodes Resp normal air movement and clear to auscultation bilaterally Cardio regular rate and regular rhythm GI soft to palpation, non-tender and non-distended Extremity General Extremity: Negative for edema Skin Skin Narrative: reviewed photos Neuro CN's II-XII intact bilaterally Lab / Micro Data Attestation: I reviewed the patient's lab results. Result Diagrams: 07/19/22 05:45 07/19/22 05:45 Labs: Laboratory Results - last 24 hr 07/19/22 05:45: WBC 9.8, RBC 3.27 L, Hgb 7.9 L, Hct 26.8 L, MCV 82.0, MCH 24.2 L , MCHC 29.5 L, RDW Std Deviation 64.9 H, RDW Coeff of Maurizio 22.3 H, Plt Count 248, MPV 9.1, Immature Gran % (Auto) 0.600, Neut % (Auto) 73.6 H, Lymph % (Auto) 16.0 L, Jennings % (Auto) 7.3, Eos % (Auto) 2.2, Baso % (Auto) 0.3, Absolute Neuts (auto) 7.2, Absolute Lymphs (auto) 1.56, Nucleated RBC % 0, Differential Comment SCANNED, Hypochromasia RARE, Anisocytosis 1+ 07/19/22 05:45: Sodium 137, Potassium 4.4, Chloride 106, Carbon Dioxide 27.0, Anion Gap 4 L, BUN 22 H, Creatinine 1.08 H, Estim Creat Clear Calc 45.21, Est GFR (MDRD) Af Amer 71, Est GFR (MDRD) Non-Af 59 L, BUN/Creatinine Ratio 20.4 H, Glucose 270 H, Calcium 8.6, Total Bilirubin 0.20, AST 18, ALT 18, Alkaline Phosphatase 113, Total Protein 6.0 L, Albumin 2.2 L, Globulin 3.8, Albumin/Globulin Ratio 0.6 L, Prealbumin 8.3 L 07/19/22 05:45: Hemoglobin A1c 8.5 H 07/19/22 07:12: POC Glucose 276 H Micro: Microbiology 07/18/22 14:29 Tissue - Ischial Pressure Sore Gram Stain - Final 07/18/22 14:29 Tissue - Ischial Pressure Sore Wound Culture - Preliminary Mixed Gram Pos & Gram Neg Org 07/18/22 14:24 Bone - Ischial Bone Gram Stain - Final 07/18/22 14:24 Bone - Ischial Bone Wound Culture - Preliminary 07/18/22 13:59 Tissue - Sacral Gram Stain - Final 07/18/22 13:59 Tissue - Sacral Wound Culture - Preliminary Presumptive C albicans Mixed Gram Positive Organisms 07/18/22 13:53 Bone - Sacral Bone Gram Stain - Final 07/18/22 13:53 Bone - Sacral Bone Wound Culture - Preliminary Gram negative idania 07/17/22 07:45 Wound - Buttock Gram Stain - Final 07/17/22 07:45 Wound - Buttock Wound Culture - Final Presumptive C albicans 07/16/22 12:30 Blood Culture (Wb) - Right Forearm Blood Culture - Prelimi nary No growth in 48 hours. 07/16/22 14:26 Blood Culture (Wb) - Anticubital Left Blood Culture - Preliminary No growth in 48 hours.
[2022-07-19 12:10] LABS: Bedside Glucose 314 mg/dL (74-106)
--- NOTE | 2022-07-19 12:51 | PCM.RX.CS ---
Consult Pharmacy has been consulted to manage selected antiobiotic: Vancomycin Type of Consult: New start Prior Doses of Antibiotics Received/Current Regimen: Medications Discontinued Medications Vancomycin HCl (Vancomycin) 1,000 mg in 200 mls @ 200 mls/hr IV X1 ONE Stop: 07/19/22 10:59 Last Admin: 07/19/22 11:41 Dose: Infused Labs: Sodium 137 mmol/L (136-145) 07/19/22 05:45 Potassium 4.4 mmol/L (3.5-5.1) 07/19/22 05:45 Chloride 106 mmol/L (98-107) 07/19/22 05:45 Carbon Dioxide 27.0 mmol/L (21.0-32.0) 07/19/22 05:45 Anion Gap 4 (5-15) L 07/19/22 05:45 BUN 22 mg/dL (7-18) H 07/19/22 05:45 Creatinine 1.08 mg/dL (0.55-1.02) H 07/19/22 05:45 Est GFR (MDRD) Af Amer 71 mL/min (>60) 07/19/22 05:45 Est GFR (MDRD) Non-Af 59 mL/min (>60) L 07/19/22 05:45 BUN/Creatinine Ratio 20.4 RATIO (10-20) H 07/19/22 05:45 Glucose 270 mg/dL (74-106) H 07/19/22 05:45 Microbiology: Microbiology 07/18/22 14:29 Tissue - Ischial Pressure Sore Gram Stain - Final 07/18/22 14:29 Tissue - Ischial Pressure Sore Wound Culture - Preliminary Mixed Gram Pos & Gram Neg Org 07/18/22 14:24 Bone - Ischial Bone Gram Stain - Final 07/18/22 14:24 Bone - Ischial Bone Wound Culture - Preliminary 07/18/22 13:59 Tissue - Sacral Gram Stain - Final 07/18/22 13:59 Tissue - Sacral Wound Culture - Preliminary Presumptive C albicans Mixed Gram Positive Organisms 07/18/22 13:53 Bone - Sacral Bone Gram Stain - Final 07/18/22 13:53 Bone - Sacral Bone Wound Culture - Preliminary Gram negative idania 07/17/22 07:45 Wound - Buttock Gram Stain - Final 07/17/22 07:45 Wound - Buttock Wound Culture - Final Presumptive C albicans 07/16/22 12:30 Blood Culture (Wb) - Right Forearm Blood Culture - Preliminary No growth in 48 hours. 07/16/22 14:26 Blood Culture (Wb) - Anticubital Left Blood Culture - Preliminary No growth in 48 hours. Estimated Creatinine Clearance: 42 Goal Trough: 15-20 mcg/mL Pharmacy Plan for Drug Dosinmg IV x1, 750mg IV q12h with trough prior to 4th dose per policy. Pharmacy Service will continue to monitor and adjust dosing as required. Follow-Up Labs: Trough Vancomycin - 07/20 @ 8446
--- NOTE | 2022-07-19 13:12 | CASEMGMT ---
Addendum entered by Sandra Ricks 07/19/22 14:54: PANCHITO MARMOLEJO into pt room, pt visitors have left. Pt states that she has been spoken to today about a possible colostomy and urostomy. Pt states that she and her family are in agreement and would like to go to [facility] TCU post hospital stay. Updated SW. Addendum entered by Sandra Ricks 07/19/22 13:43: Reached out to [facility] to identify any issues in the home. Per Jena, clinical protocol manager, pt special education case manager reported pt lives alone but has caregivers whose hours have recently decreased but they seem to do a good job. There are times pt is alone. No other concerns noted. [facility] was not aware that guardianship was being pursued. Original Note: PANCHITO MARMOLEJO into pt room to discuss dc planning. Pt eating lunch with mother, CM from Board of DD and cg from [employer] in room. PANCHITO MARMOLEJO introduced self and pt aware will discuss at a later time.
--- NOTE | 2022-07-19 16:25 | CASEMGMT ---
Social Work SW met with pt and her mother Scarlet Han. SW introduced self and role of SW. Pt agreeable to discuss discharge plan with SW in the presence of her mother. Pt and mother amiable with one another, discussing thoughts and plans reasonably together. Pt and mother confirm that pt has been living alone successfully, recent she has not been feeling well and sleeping more and therefore not feeling up to caring for herself as she normally does. Pt and mother state this is due to illness. Pt is connected with the Board of and Stephanie is her Support Cleaning Laborer. Per pt and mother, Stephanie had talked with them about pursuing Guardianship as pt has not been properly caring for herself. Pt also states that Stephanie does not think pt mother or sister should be her guardian. Pt reports Stephanie did meet with pt and mother today and informed them that she is not pursing guardianship at this time as pt is making the choice to go to SNF. A list of SNF providers including quality and resource use data and consistent with the patient?s preferred geographic region, medical needs, and insurance network were provided from the [employer] Guide. Pt interested in TCU. SW did explain that TCU is not in network with pt secondary insurance and she would need to move after 20 days in the TCU to another facility that accepts her secondary insurance. Pt and mother requesting time to review list. SW will followup in the morning to obtain SNF choices. MICHELLE Pinto
--- NOTE | 2022-07-19 17:20 | PN.SURG_ITS ---
Subjective Subjective Postop #1 Patient resting comfortably. VAC applied today without difficulty. Objective Data Objective Data Vital Signs: Vital Signs Temp Pulse Resp BP Pulse Ox O2 Del Method 98.2 F 110 H 18 129/71 H 95 Room Air 07/19/22 16:50 07/19/22 16:50 07/19/22 16:50 07/19/22 16:50 07/19/22 16:50 07/19/22 16:50 Oxygen Delivery Method Room Air Weight: 94 lb Body Mass Index (BMI) 21.0 Intake & Output: Intake and Output for Last 24 Hours 07/17/22 07/18/22 07/19/22 23:59 23:59 23:59 Intake Total 1270 / 1270 891.75 / 1191.75 1708.25 / 1708.25 Output Total 1190 / 1190 1450 / 1625 975 / 975 Balance 80 / 80 -558.25 / -433.25 733.25 / 733.25 Prealbumin was 8.3. Encourage nutritional supplementation with protein to help the healing process. Lab / Micro Data Attestation: I reviewed the patient's lab results. Lab results narrative: Hgb decreased to 7.9 after surgery. She will benefit from PRBC for healing and to strengthen the immune system and help her feel less tired. She is also on Iron supplementation. Result Diagrams: 07/20/22 05:25 07/20/22 05:25 Labs: Laboratory Results - last 24 hr 07/19/22 05:45: WBC 9.8, RBC 3.27 L, Hgb 7.9 L, Hct 26.8 L, MCV 82.0, MCH 24.2 L , MCHC 29.5 L, RDW Std Deviation 64.9 H, RDW Coeff of Maurizio 22.3 H, Plt Count 248, MPV 9.1, Immature Gran % (Auto) 0.600, Neut % (Auto) 73.6 H, Lymph % (Auto) 16.0 L, Woodruff % (Auto) 7.3, Eos % (Auto) 2.2, Baso % (Auto) 0.3, Absolute Neuts (auto) 7.2, Absolute Lymphs (auto) 1.56, Nucleated RBC % 0, Differential Comment SCANNED, Hypochromasia RARE, Anisocytosis 1+ 07/19/22 05:45: Sodium 137, Potassium 4.4, Chloride 106, Carbon Dioxide 27.0, Anion Gap 4 L, BUN 22 H, Creatinine 1.08 H, Estim Creat Clear Calc 45.21, Est GFR (MDRD) Af Amer 71, Est GFR (MDRD) Non-Af 59 L, BUN/Creatinine Ratio 20.4 H, Glucose 270 H, Calcium 8.6, Total Bilirubin 0.20, AST 18, ALT 18, Alkaline Phosp hatase 113, Total Protein 6.0 L, Albumin 2.2 L, Globulin 3.8, Albumin/Globulin Ratio 0.6 L, Prealbumin 8.3 L 07/19/22 05:45: Hemoglobin A1c 8.5 H 07/19/22 07:12: POC Glucose 276 H 07/19/22 11:45: Blood Type B POSITIVE, Antibody Screen NEGATIVE, Crossmatch See Detail 07/19/22 11:46: POC Glucose 314 H Micro: Microbiology 07/18/22 14:29 Tissue - Ischial Pressure Sore Gram Stain - Final 07/18/22 14:29 Tissue - Ischial Pressure Sore Wound Culture - Preliminary Mixed Gram Pos & Gram Neg Org 07/18/22 14:24 Bone - Ischial Bone Gram Stain - Final 07/18/22 14:24 Bone - Ischial Bone Wound Culture - Preliminary 07/18/22 13:59 Tissue - Sacral Gram Stain - Final 07/18/22 13:59 Tissue - Sacral Wound Culture - Preliminary Presumptive C albicans Mixed Gram Positive Organisms 07/18/22 13:53 Bone - Sacral Bone Gram Stain - Final 07/18/22 13:53 Bone - Sacral Bone Wound Culture - Preliminary Gram negative idania 07/17/22 07:45 Wound - Buttock Gram Stain - Final 07/17/22 07:45 Wound - Buttock Wound Culture - Final Presumptive C albicans 07/16/22 12:30 Blood Culture (Wb) - Right Forearm Blood Culture - Pre liminary No growth in 48 hours. 07/16/22 14:26 Blood Culture (Wb) - Anticubital Left Blood Culture - Preliminary No growth in 48 hours. Physical Exam Narrative General - Alert and Oriented. HEENT - PERRL. EOMI. Neck - Supple and nontender. Abdomen - Soft and nondistended. Lower back and buttock area - Both sacral and right ischial wounds are stable. No active bleeding noted. VAC applied today without difficulty. Neuro - CN II-XII grossly intact. Psych - Normal mood and affect. Assessment & Plan Assessment/Plan (1) Right ischial pressure sore, stage 4: (2) Osteomyelitis of right side of pelvis: (3) Pressure ulcer of sacral region, stage 4: (4) Skin necrosis: (5) Urinary incontinence: (6) Diabetes mellitus treated with insulin: (7) Spina bifida of lumbar spine: (8) Acute postoperative anemia due to expected blood loss: (9) History of MRSA infection: PLAN: Plan The sacral and right ischial pressure sores are stable. No active bleeding noted. VAC applied today without difficulty. Operative cultures thus far show possible Naty albicans and Mixed Gram positive organisms in the sacrum soft tissue and Gram negative rods in the sac rum bone. Vancomycin was added to the Zosyn per Infectious Diseases recommendations. Prealbumin was 8.3. Encourage nutritional supplementation with protein to help the healing process. Nutrition should be maximized before considering any elective wound closure with muscle flaps. HgbA1c was 8.5. It should be less than 8 before considering any elective wound closure with muscle flaps. Hgb decreased to 7.9 after surgery. Has postoperative anemia due to expected blood loss. She will benefit from PRBC for healing and to strengthen the immune system and help her feel less tired. She is also getting Iron supplementation. There has been discussion today regarding diversion of stool with a diverting colostomy and to help with the urinary incontinence, a diverting urostomy. This would need to be done at a tertiary center. They feel comfortable with [facility]. After discharge, followup at the [facility].
[2022-07-19 18:15] LABS: Bedside Glucose 99 mg/dL (74-106)
[2022-07-19] MEDS: 0.9% Saline Lock 10 ML Syringe IV (20:37)
[2022-07-19] MEDS: FLUoxetine 20 MG Capsule PO (21:24)
[2022-07-19] MEDS: Insulin Glargine-YFGN 100 UNIT/ML Pen 10 UNIT SC (21:59)
[2022-07-19] MEDS: oxyCODONE 5 MG Tablet 10 MG PO (23:36)
[2022-07-19 23:45] LABS: Bedside Glucose 128 mg/dL (74-106)
[2022-07-20 02:43] VITALS: BP 113/67; PULSE 96; RESP 16; TEMP 36.7; O2SAT 95
[2022-07-20 06:18] LABS: Absolute Lymphocyte Count 2.09 X10^3/uL (0.83-4.51); Absolute Neutrophil Count 8.8 X10^3/uL (2.0-7.7); Basophil# 0.08 X10^3/uL; Basophil% 0.6 % (0-1); Eosinophil# 0.28 X10^3/uL; Eosinophils% 2.2 % (0-5); Hematocrit 37.3 % (37-47); Hemoglobin 11.7 g/dL (12.0-15.0); Lymphocyte # 2.09 X10^3/ul (0.83-4.51); Lymphocyte % 16.7 % (19-41); Mean Corp Hgb Conc 31.4 g/dL (32-36); Mean Corpuscular Hgb 26.2 pg (27.0-32.0); Mean Corpuscular Volume 83.4 fL (81-99); Mean Platelet Vol. 9.1 fl (6.2-12.0); Monocyte# 0.99 X10^3/uL; Monocyte% 7.9 % (0-10); NRBC Flagged by Analyzer 0.2 % (0-5); Neutrophil # 8.79 X10^3/uL (2.7-7.7); Neutrophil % 70.1 % (47-70); Platelet Count 252 K/mm3 (150-450); RBC Distribution Width CV 19.9 % (11.6-14.6); RBC Distribution Width SD 59.9 fl (35.1-43.9); Red Blood Count 4.47 M/mm3 (4.2-5.4); White Blood Count 12.6 K/mm3 (4.4-11.0)
[2022-07-20] MEDS: Insulin Lispro 100 UNIT/ML INSULN.PEN SC ×3 (06:21→20:24)
--- NOTE | 2022-07-20 06:53 | WOUNDNOTE ---
Wound VAC with leak alarm. patient had moved in bed and the drape loosened at the proximal edge of the sacral wound. drape placed and good seal noted at 150mmHg low continuous suction. Nursing to change the VAC dressing Saturday and then will attempt to get on a -- schedule next week.
[2022-07-20 07:06] LABS: Bedside Glucose 185 mg/dL (74-106)
[2022-07-20 07:07] LABS: ALB/GLOB Ratio 0.6 RATIO (0.9-2.4); AST(SGOT) 11 U/L (15-37); Alanine Aminotransfer ALT/SGPT 17 U/L (13-56); Albumin, Serum 2.2 g/dL (3.2-5.0); Alkaline Phosphatase 107 U/L (45-117); Anion Gap 7 (5-15); BUN 17 mg/dL (7-18); BUN/Creat Ratio 22.3 RATIO (10-20); Calcium,Total 8.4 mg/dL (8.5-10.1); Chloride 107 mmol/L (98-107); Creatinine, Serum 0.76 mg/dL (0.55-1.02); EST Glomerular Filtration Rate 88 mL/min (>60); Est Glom Filt Rate - Afr Amer 107 mL/min (>60); Estimated Creatinine Clearance 64.25 ml/min; Globulin 3.8 g/dL (2.2-4.2); Glucose 199 mg/dL (74-106); Potassium 4.4 mmol/L (3.5-5.1); Sodium Level 136 mmol/L (136-145)
--- NOTE | 2022-07-20 07:50 | PCM.PN.HOSP ---
Reason for Visit Reason for Visit: Diagnoses Acute posthemorrhagic anemia (07/16/22) Anemia in other chronic diseases classified elsewhere (07/16/22) Type 1 diabetes mellitus without complications (07/16/22) Type 2 diabetes mellitus without complications (07/16/22) Gangrene, not elsewhere classified (07/16/22) Cellulitis, unspecified (07/16/22) Pressure ulcer of sacral region, unstageable (07/16/22) Pressure ulcer of sacral region, stage 4 (07/16/22) Pressure ulcer of right buttock, stage 4 (07/16/22) Pressure ulcer of unspecified site, unspecified stage (07/16/22) Osteomyelitis, unspecified (07/16/22) Lumbar spina bifida without hydrocephalus (07/16/22) Spina bifida, unspecified (07/16/22) Unspecified urinary incontinence (07/16/22) 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 (current) use of insulin (07/16/22) Subjective Subjective Feeling tired this morning, wound VAC in place, agreeable to least discuss/be evaluated for ostomy and suprapubic catheter Objective Data Objective Data Vital Signs: Vital Signs Temp Pulse Resp BP Pulse Ox O2 Del Method 98.1 F 96 16 113/67 95 Room Air 07/20/22 02:43 07/20/22 02:43 07/20/22 02:43 07/20/22 02:43 07/20/22 02:43 07/20/22 02:43 Oxygen Delivery Method Room Air Weight: 42.638 kg Body Mass Index (BMI) 21.0 Intake & Output: Intake and Output for Last 24 Hours 07/18/22 07/19/22 07/20/22 23:59 23:59 23:59 Intake Total 891.75 / 1191.75 2879.08 / 2879.08 394.17 / 394.17 Output Total 1450 / 1625 2175 / 2175 700 / 700 Balance -558.25 / -433.25 704.08 / 704.08 -305.83 / -305.83 Lab / Micro Data Result Diagrams: 07/20/22 05:25 07/20/22 05:25 Labs: Laboratory Results - last 24 hr 07/19/22 05:45: Hemoglobin A1c 8.5 H 07/19/22 11:45: Blood Type B POSITIVE, Antibody Screen NEGATIVE, Crossmatch See Detail 07/19/22 11:46: POC Glucose 314 H 07/19/22 17:40: POC Glucose 99 07/19/22 21:58: POC Glucose 128 H 07/20/22 05:25: WBC 12.6 H, RBC 4.47, Hgb 11.7 L, Hct 37.3, MCV 83.4, MCH 26.2 L, MCHC 31.4 L D, RDW Std Deviation 59.9 H, RDW Coeff of Maurizio 19.9 H, Plt Count 252, MPV 9.1, Immature Gran % (Auto) 2.500 H, Neut % (Auto) 70.1 H, Lymph % (Auto) 16.7 L, [place] % (Auto) 7.9, Eos % (Auto) 2.2, Baso % (Auto) 0.6, Absolute Neuts (auto) 8.8 H, Absolute Lymphs (auto) 2.09, Nucleated RBC % 0.2 07/20/22 05:25: Sodium 136, Potassium 4.4, Chloride 107, Carbon Dioxide 22.0, Anion Gap 7, BUN 17, Creatinine 0.76, Estim Creat Clear Calc 64.25, Est GFR (MDRD) Af Amer 107, Est GFR (MDRD) Non-Af 88, BUN/Creatinine Ratio 22.3 H, Glucose 199 H, Calcium 8.4 L, Total Bilirubin 0.60, AST 11 L, ALT 17, Alkaline Phosphatase 107, Total Protein 6.0 L, Albumin 2.2 L, Globulin 3.8, Albumin/Globulin Ratio 0.6 L 07/20/22 06:20: POC Glucose 185 H Micro: Microbiology 07/18/22 13:53 Bone - Sacral Bone Gram Stain - Final 07/18/22 13:53 Bone - Sacral Bone Wound Culture - Preliminary Pseudomonas aeruginosa 07/18/22 14:29 Tissue - Ischial Pressure Sore Gram Stain - Final 07/18/22 14:29 Tissue - Ischial Pressure Sore Wound Culture - Preliminary Mixed Gram Pos & Gram Neg Org 07/18/22 14:24 Bone - Ischial Bone Gram Stain - Final 07/18/22 14:24 Bone - Ischial Bone Wound Culture - Preliminary 07/18/22 13:59 Tissue - Sacral Gram Stain - Final 07/18/22 13:59 Tissue - Sacral Wound Culture - Preliminary Presumptive C albicans Mixed Gram Positive Organisms 07/17/22 07:45 Wound - Buttock Gram Stain - Final 07/17/22 07:45 Wound - Buttock Wound Culture - Final Presumptive C albicans 07/16/22 12:30 Blood Culture (Wb) - Right Forearm Blood Culture - Preliminary No growth in 48 hours. 07/16/22 14:26 Blood Culture (Wb) - Anticubital Left Blood Culture - Preliminary No growth in 48 hours. Physical Exam Narrative General: Alert, oriented, no apparent distress HEENT: Atraumatic, normocephalic Eyes: Anicteric, normal conjunctiva, extraocular movements grossly intact Neck: Supple Respiratory: Clear to auscultation bilaterally, normal respiratory effort Cardiovascular: Regular rate and rhythm GI: Soft, nontender, nondistended Extremities: No edema Musculoskeletal: Moving freely in bed Neuro: Spina bifida Skin: Status post sacral debridement, wound VAC in place Psych: Cooperative overall Assessment & Plan Assessment/Plan (1) Wound cellulitis: (2) Decubitus ulcer: PLAN: Plan 1. Recurrent right ischial pressure sore, 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 White count is elevated at 16.7 and she is tachycardic consistent with an infection of note her white count has been elevated since April, she was seeing hematology for this and they feel that is likely reactive but wanted outpatient follow-up -Had been at [facility] 10 to 14 days ago and given antibiotics and improved and then once they were completed wound worsened ? We will start her on IV Zosyn ? We will consult wound care as well as plastics for possible to be debridement ? Had extensive conversation with her and her mother about the possibility of having a urostomy done as an outpatient as she has difficulty self cathing and it sounds like she has routine episodes of overflow incontinence ? We will have wound cultures as well as blood cultures obtained -07/17: White blood cell count improved slightly today, continue Zosyn, wound care, cultures pending. Tachycardia has improved. Pending plastics eval. Did have elevated ESR and CRP, will repeat in the a.m. as well. -5/10: Patient for OR with Dr. Mitchell, continue antibiotics. Preop cultures pending and further Intra-Op cultures to be sent based on the -07/19: Status postdebridement in OR. Did have bump in creatinine, will give IV fluids. Remains on Zosyn. Initial wound culture grew Naty but debridement and bone cultures still pending, given this in addition to right ischial bone osteomyelitis will consult infectious disease -07/20: Remains on vancomycin and Zosyn, ID following, Dr. Mitchell following. Did have increase in white blood cell count to 12.6 with left shift, will recheck inflammatory markers and follow cultures with low threshold to reculture if needed but has been afebrile and vitally stable. Presently 1 deep wound culture growing Pseudomonas, there is also rare mixed gram-positive and gram-negative organisms and a presumptive C albicans while cultures are pulmonary, ID on board. Yesterday was reluctant to be evaluated for suprapubic catheter diverting ostomy, patient agreeable to consult to discuss. Surgery consult placed. Discussed with Dr. Marshall as well about suprapubic catheter and she can follow-up outpatient for suprapubic catheter evaluation. 2. DM2 ? Blood sugars are elevated in the setting of infection that she says that she has had fluctuations in the past ? We will continue with her long-acting insulin ? Accu-Cheks ACHS ? Sliding scale insulin ? We will make adjustments as necessary DVT: Lovenox subq 30 minutes was spent on direct patient care as well as chart review and collaboration with colleagues Charges/Coding Visit Charges Inpatient E&M: 94832 Subs Hosp L2
[2022-07-20 09:52] LABS: Erythrocyte Sedimentation Rate 52 mm/hr (0-30)
[2022-07-20 10:00] VITALS: BP 122/75; PULSE 96; RESP 16; TEMP 36.6; O2SAT 97
--- NOTE | 2022-07-20 10:34 | CASEMGMT ---
Discharge Planning Patient requests a private room if possible. [facility] has no open female beds, private or semi-private. [facility] has open female beds but no private. Message left with [facility] to check on the status of private female rooms. Referral sent to [facility] via [facility]. notified. Idalia Farr
--- NOTE | 2022-07-20 10:39 | CASEMGMT ---
Discharge Planning [facility] has an open female private room available. Referral sent via [employer]. Idalia Farr
--- NOTE | 2022-07-20 10:39 | CASEMGMT ---
Addendum entered by Shanda Joseph 07/20/22 10:56: SW met with pt and mother and updated that [facility] cannot accept, [facility] has no female rooms, [facility] has rooms but no private and [facility] has private rooms available. Pt agreeable to referral to [facility]. Pt then informed SW of upsetting news from surgeon. SW provided support and encouraged pt to verbalize feelings and discuss coping. Pt has support of her mother and sister. Stock Buyer offered and pt declined but mother asked for a visit for prayer. Referral made. SW will continue to follow for emotional support. MICHELLE Pinto Original Note: Social Work SW met with pt and her mother and discussed SNF choices. Pt preference is [facility]. [facility]. [facility]. [facility]. Pt requesting private room. Referral made to [facility] in TCU and they are unable to accept. joanne Friedman/celestina railways assistant updated and will send referrals to other facilities. MICHELLE Macias
[2022-07-20] MEDS: Nystatin Powder 15gm Bottle 1 APPLIC TOPICAL ×2 (10:41→20:25)
[2022-07-20] MEDS: Enoxaparin 40 MG/0.4 ML Syringe SC (10:41)
[2022-07-20] MEDS: Ferrous Sulfate 325 MG Tablet PO (10:42)
[2022-07-20] MEDS: Juven (unflavored) Packet 1 PACKET PO ×2 (10:42→18:56)
[2022-07-20] MEDS: Glucerna Shake 120 ML LIQUID PO ×4 (10:42→20:26)
[2022-07-20 12:00] LABS: Bedside Glucose 126 mg/dL (74-106)
--- NOTE | 2022-07-20 12:55 | US_ITS ---
EXAM: US PELVIS TRANSABDOMINAL, COMPLETE CLINICAL INDICATION: adnexal mass -- adnexal mass TECHNIQUE: Transabdominal pelvic ultrasound was performed with grayscale and color Doppler imaging. COMPARISON: CT scan of the pelvis 07/28/2022. FINDINGS: UTERUS/CERVIX: Enlarged heterogeneous uterus with multiple leiomyomas in various stages of degeneration. Uterus 13 x 10 x 10 cm. Endometrial echo not visualized. Anteverted. RIGHT OVARY: On the ultrasound there was a question of a separate mass in the right adnexa that may be due to an enlarged right ovary but on CT there does not appear to be a separate right adnexal mass. Right ovary not definitely visualized. LEFT OVARY: Unremarkable. Blood flow is present in the left ovary. The left ovary measures 2.3 x 1.9 x 1.1 cm. FREE FLUID: None. BLADDER: Unremarkable as visualized. Wall is normal thickness for degree of distention. US/Pelvic (Non ) IMPRESSION: 1. Enlarged heterogeneous uterus with multiple leiomyomas in various stages of degeneration. 2. There was a question of a separate mass in the right adnexa that may be due to enlarged right ovary but on CT there does not appear to be a separate mass and I suspect this represents an exophytic leiomyoma. Electronically Signed: Juvencio Beal MD at 17:21 EDT ,
--- NOTE | 2022-07-20 13:08 | CON.PCM.SX_ITS ---
Assessment & Plan Assessment/Plan (1) Pressure ulcer of sacral region, stage 4: PLAN: Patient has a large sacral ulcer and requires diversion. 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 I did offer the patient diversion with sigmoid colostomy. I discussed this with her and her mother in detail. After reviewing the CT scan and it. The patient has a 13 cm pelvic mass. I discussed this with OB and consulted Dr. Gunter. We had originally ordered a pelvic MRI but her MANAGER DISASTER RECOVERY shunt info is not available. Dr Gunter is checking CEA and CA 125 and getting pelvic ultrasound. If she feels this is something that requires data collection associate/onc resection we would get her to tertiary center where hopefully they could resect and do a diversion at the same time sparing her additional surgeries. Pt is in agreement. Roe Gomez MD HPI Consult Data Date of Consult: 07/20/22 HPI Narrative HPI Narrative: VICTORIANO DE LOS SANTOS, is a 42 F who presents with sacral ulcer. The patient had debridement 2 days ago by plastic surgery. I was consulted for diversion colostomy. Patient is paraplegic confined to wheelchair due to spina bifida. [facility] Medical History (Updated 07/20/22 @ 12:[address] 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 Pressure ulcer of sacral region, unstageable Right ischial pressure sore, stage 4 Skin necrosis Spina bifida of lumbar spine Type 1 diabetes mellitus Urinary incontinence Vertigo Home Medications insulin glargine 100 unit/mL (3 mL) subcutaneous pen (Lantus Solostar U-100 Insulin) 20 unit subcut QPM 04/20/22 [History Last Taken Unknown] blood sugar diagnostic (OneTouch Verio test strips) #120 ea 05/31/22 [Rx Last Taken Unknown] fluoxetine 20 mg capsule 20 mg PO DAILY #60 caps 06/21/22 [Rx Last Taken Unknown] ferrous sulfate 325 mg (65 mg iron) tablet 325 mg PO DAILY #90 tabs 06/22/22 [Rx Last Taken Unknown] cephalexin 500 mg capsule 500 mg PO 4X/DAY 07/03/22 [History Last Taken Unknown] doxycycline monohydrate 100 mg capsule 100 mg PO BID 07/03/22 [History Last Taken Unknown] methylprednisolone 4 mg tablets in a dose pack (Methylpred DP) 4 mg PO DAILY 07/03/22 [History Last Taken Unknown] cephalexin 500 mg capsule 500 mg PO Q6 #40 CAPSULES 07/14/22 [Rx Last Taken Unknown] insulin aspart U-100 100 unit/mL subcutaneous solution (Novolog U-100 Insulin aspart) 6 unit (0.06 mL) subcut TIDWMEAL #10 mL 07/16/22 [Rx Last Taken Unknown] pen needle, diabetic 32 gauge x 5/32 (BD Ultra-Fine Charla Pen Needle) #400 ea 07/16/22 [Rx Last Taken Unknown] Allergy/AdvReac Type Severity Reaction Status Date / Time Latex, Natural Rubber Allergy Hives Verified 07/17/22 21:24 Family History Other Cancer Diabetes FH: defects Surgical History History of brain surgery History of release of tendon Status post repair of complex wound Social History Smoking Status: Never smoker alcohol intake: current alcohol intake frequency: holidays/special occasions only Alcohol type: wine substance use type: does not use do you feel safe at home: Yes ROS Constitutional Constitutional: Denies anorexia, chills or fatigue Eyes Eyes: Denies blurry vision ENT HEENT: Denies abnormal hearing Cardiovascular Cardiovascular: Denies chest pain Respiratory/Chest Respiratory/Chest: Denies cough or dyspnea Gastrointestinal Gastrointestinal: Denies abdominal pain, nausea or vomiting Genitourinary Genitourinary: Denies change in urinary stream Musculoskeletal Musculoskeletal: Reports limited range of motion and numbness Integumentary Integumentary: Denies jaundice Neurologic Neurologic: Reports focal weakness Psychiatric Psychiatric: Reports depression; Denies anxiety Endocrine Endocrinology: Denies flushing Physical Exam Const alert and oriented x3 HEENT normocephalic Eyes PERRL Resp normal respiratory effort Cardio Rate: regular rate Rhythm: regular rhythm GI soft to palpation Lab / Micro Data Result Diagrams: 07/20/22 05:25 07/20/22 05:25 Labs: Laboratory Results - last 24 hr 07/19/22 11:45: Blood Type B POSITIVE, Antibody Screen NEGATIVE, Crossmatch See Detail 07/19/22 17:40: POC Glucose 99 07/19/22 21:58: POC Glucose 128 H 07/20/22 05:25: WBC 12.6 H, RBC 4.47, Hgb 11.7 L, Hct 37.3, MCV 83.4, MCH 26.2 L , MCHC 31.4 L D, RDW Std Deviation 59.9 H, RDW Coeff of Maurizio 19.9 H, Plt Count 252, MPV 9.1, Immature Gran % (Auto) 2.500 H, Neut % (Auto) 70.1 H, Lymph % (Auto) 16.7 L, [place] % (Auto) 7.9, Eos % (Auto) 2.2, Baso % (Auto) 0.6, Absolute Neuts (auto) 8.8 H, Absolute Lymphs (auto) 2.09, Nucleated RBC % 0.2 07/20/22 05:25: Sodium 136, Potassium 4.4, Chloride 107, Carbon Dioxide 22.0, Anion Gap 7, BUN 17, Creatinine 0.76, Estim Creat Clear Calc 64.25, Est GFR (MDRD) Af Amer 107, Est GFR (MDRD) Non-Af 88, BUN/Creatinine Ratio 22.3 H, Gl ucose 199 H, Calcium 8.4 L, Total Bilirubin 0.60, AST 11 L, ALT 17, Alkaline Phosphatase 107, Total Protein 6.0 L, Albumin 2.2 L, Globulin 3.8, Albumin/Globulin Ratio 0.6 L 07/20/22 05:25: ESR 52 H 07/20/22 05:25: C-React Prot Ext Range 55.50 H 07/20/22 06:20: POC Glucose 185 H 07/20/22 11:13: POC Glucose 126 H Micro: Microbiology 07/18/22 13:59 Tissue - Sacral Gram Stain - Final 07/18/22 13:59 Tissue - Sacral Wound Culture - Preliminary Presumptive C albicans GPC Poss Enterococcus sp Gram Positive Cocci Gram negative idania 07/18/22 14:29 Tissue - Ischial Pressure Sore Gram Stain - Final 07/18/22 14:29 Tissue - Ischial Pressure Sore Wound Culture - Preliminary Mixed Gram Pos & Gram Neg Org 07/18/22 14:24 Bone - Ischial Bone Gram Stain - Final 07/18/22 14:24 Bone - Ischial Bone Wound Culture - Preliminary 07/18/22 14:24 Bone - Ischial Bone Anaerobic Culture - Preliminary 07/18/22 13:53 Bone - Sacral Bone Gram Stain - Final 07/18/22 13:53 Bone - Sacral Bone Wound Culture - Preliminary Pseudomonas aeruginosa 07/18/22 13:53 Bone - Sacral Bone Anaerobic Culture - Preliminary
--- NOTE | 2022-07-20 13:25 | CASEMGMT ---
Discharge Planning [facility] declined patient. SW notified. Idalia Farr
[2022-07-20 13:46] LABS: Bedside Glucose 300 mg/dL (74-106)
--- NOTE | 2022-07-20 14:44 | PCM.PN.ID ---
Physical Exam Narrative Feeling ok, no fever, no n/v. Const alert and no apparent distress General Appearance: cooperative Resp normal air movement and clear to auscultation bilaterally Cardio regular rate and regular rhythm GI soft to palpation and non-tender Skin Skin Narrative: no new rash ID ID: Route of nutrition/ use of supplements: [] Nutritional Intake: [] IV Site: [] Ochoa Catheter: [] Assessment & Plan Assessment/Plan (1) Spina bifida: (2) Type 1 diabetes mellitus: (3) Osteomyelitis of pelvic region: PLAN: OR 07/18/[address] Mitchell for I&D of ischium and sacrum. Surg cx pending. 04/2022 had wound cx with PsA and MRSA. Cont vanc/zosyn. For [facility] healing, recommend considering diverting ostomy and suprapubic catheter, but complicated by prior shunts and pelvic mass. Will follow
--- NOTE | 2022-07-20 14:48 | CHAPLAIN ---
Type of Pastoral Visit _x__ Initial Visit ___ Follow-up Visit ___ On-call Visit ___ General Patient Visit ___ Spiritual Assessment ___ Family Conference ___ Bereavement ___ Rapid Response ___ Code Blue ___ Other (describe below) Pastoral Care Referral From _x__ Patient ___ Family ___ Nurse ___ Physician _x__ Strawberry Grower ___ Front Attendant ___ Other (describe below) Sacrament/Intervention _x__ Active listening ___ Anointing ___ Jain ___ Bereavement ___ Communion _x__ Sylvia exploration ___ _x__ Life review _x__ Prayer ___ Reconciliation ___ Sacrament of Sick _x__ Supportive presence ___ Wedding ___ Other (describe below) Pastoral Comments visit initiated by SW and mother of patient; at first pt was reluctant to talk with rn case management; however when this rn case management entered the room both the mother and the patient were actively engaged in the conversation; pt admits of having difficult news that may require another surgery and a transfer out of hospital; pt also is facing placement in SNF; pt admits to discouragement and anxiety due to these things; pt has had long history of health issues; mother is active in the conversation and points out details; discussion given to how pt jairon, what brings hope or peace etc. to which pt has several positive ways identified; processing of and validation of feelings continue; pt acknowledges that she is not active in sylvia but believes; pt and mother welcome the support of spiritual care and prayers; future visits are welcome if pt remains at this hospital
[2022-07-20 16:00] VITALS: BP 147/81; PULSE 90; RESP 16; TEMP 36.8; O2SAT 97
[2022-07-20 16:10] LABS: Bedside Glucose 423 mg/dL (74-106)
--- NOTE | 2022-07-20 16:30 | CASEMGMT ---
Social Work Pt with multiple medical issues. SW updated [facility] and informed that pt will be monitored over the weekend and then [facility] will follow up with [facility] on Saturday for continued discharge planning. MICHELLE Pinto
--- NOTE | 2022-07-20 19:35 | CON.PCM.OB_ITS ---
Assessment & Plan (1) Fibroid uterus: COMMENT: discussed low risk for uterine cancer, fibroids will shrink in menopause, may choose to not surgical remove unless desired or symptomatic. FSH and estradiol ordered to evaluate menopausal status. (2) Adnexal mass: COMMENT: suspect degenerating pedunculated fibroid, recommend pelvic MRI if able, if not will evaluate at time of surgery. CEA and CA 125 ordered. PLAN: Plan discussed with patient expectant managment vs hysterectomy for fibroids. patient prefers expectant management. discussed further evaluation of adnexa wit h MRI if able, discussed oophorectomy if ovarian mass seen on imaging and surgery. labs ordered to evaluate for menopausal status. will continue to follow until surgical evaluation and further imaging. HPI Consult Data Date of Consult: 07/20/22 HPI Narrative HPI Narrative: VICTORIANO DE LOS SANTOS, is a 42 F who presents with decubitus ulcer, planning diverting colostomy with general surgery and gynecology was consulted for adnexal mass. upon ct and further pelvic ultrasound the uterus is enlarged with multiple fibroids and the adnexal mass on CT scan appears to possibly be a degenerating fibroid on US. 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 she states she has infrequent menses and is unsure when her last menses was, possibly months ago. she denies any pelvic pressure or pain, she hasn't noticed a change in abdominal girth or fullness in lower abdomen, she does struggle with catheterization. she states menses lasts only a few days and are light when they do happen. [facility] Medical History (Updated 07/20/22 @ 19:[address] Dionne Gunter MD) Acute postoperative anemia due to expected blood loss Anemia Anemia of chronic disease Anxiety and depression Buttock wound Cancer Decubitus ulcer of coccyx, stage 2 Decubitus ulcer of right buttock, stage 3 Diabetes mellitus treated with insulin Difficulty transferring Health care maintenance High cholesterol History of MRSA infection Insulin dependent diabetes mellitus Leukocytosis Medulloblastoma Osteomyelitis of right side of pelvis Pressure ulcer of sacral region, unstageable Right ischial pressure sore, stage 4 Skin necrosis Spina bifida of lumbar spine Type 1 diabetes mellitus Urinary incontinence Vertigo Home Medications insulin glargine 100 unit/mL (3 mL) subcutaneous pen (Lantus Solostar U-100 Insulin) 20 unit subcut QPM 04/20/22 [History Last Taken Unknown] blood sugar diagnostic (OneTouch Verio test strips) #120 ea 05/31/22 [Rx Last Taken Unknown] fluoxetine 20 mg capsule 20 mg PO DAILY #60 caps 06/21/22 [Rx Last Taken Unknown] ferrous sulfate 325 mg (65 mg iron) tablet 325 mg PO DAILY #90 tabs 06/22/22 [Rx Last Taken Unknown] cephalexin 500 mg capsule 500 mg PO 4X/DAY 07/03/22 [History Last Taken Unknown] doxycycline monohydrate 100 mg capsule 100 mg PO BID 07/03/22 [History Last Taken Unknown] methylprednisolone 4 mg tablets in a dose pack (Methylpred DP) 4 mg PO DAILY 07/03/22 [History Last Taken Unknown] cephalexin 500 mg capsule 500 mg PO Q6 #40 CAPSULES 07/14/22 [Rx Last Taken Unknown] insulin aspart U-100 100 unit/mL subcutaneous solution (Novolog U-100 Insulin aspart) 6 unit (0.06 mL) subcut TIDWMEAL #10 mL 07/16/22 [Rx Last Taken Unknown] pen needle, diabetic 32 gauge x 5/32 (BD Ultra-Fine Charla Pen Needle) #400 ea 07/16/22 [Rx Last Taken Unknown] Allergy/AdvReac Type Severity Reaction Status Date / Time Latex, Natural Rubber Allergy Hives Verified 07/17/22 21:24 Family History Other Cancer Diabetes FH: defects Surgical History History of brain surgery History of release of tendon Status post repair of complex wound Social History Smoking Status: Never smoker alcohol intake: current alcohol intake frequency: holidays/special occasions only Alcohol type: wine substance use type: does not use do you feel safe at home: Yes Vital Signs Vital Signs Vital Signs: 07/19/22 20:20 07/19/22 21:28 07/19/22 22:48 Temperature 99 F 98.2 F Temperature Source Oral Oral Pulse Rate 107 H 100 Pulse Strength Normal (2+) Respiratory Rate 16 16 Blood Pressure 140/83 H 123/64 H Blood Pressure Mean 102 83 Blood Pressure Source Monitor Monitor Blood Pressure Position Supine Supine Blood Pressure Location Right Arm Right Arm Pulse Ox 95 95 Oxygen Delivery Method Room Air Room Air 07/20/22 02:43 07/20/22 10:00 07/20/22 16:00 Temperature 98.1 F 98 F 98.2 F Temperature Source Oral Oral Oral Pulse Rate 96 96 90 Pulse Strength Respiratory Rate 16 16 16 Blood Pressure 113/67 122/75 H 147/81 H Blood Pressure Mean 82 90 103 Blood Pressure Source Monitor Monitor Monitor Blood Pressure Position Supine Semi-Fowlers Semi-Fowlers Blood Pressure Location Right Arm Left Arm Left Arm Pulse Ox 95 97 97 Oxygen Delivery Method Room Air Room Air Room Air Weight Weight: 94 lb Body Mass Index (BMI) 21.0 ROS Constitutional Constitutional: Denies anorexia, chills or fatigue Eyes Eyes: Denies blurry vision Cardiovascular Cardiovascular: Denies chest pain Respiratory/Chest Respiratory/Chest: Denies cough or dyspnea Gastrointestinal Gastrointestinal: Denies abdominal pain, nausea or vomiting Genitourinary Genitourinary: Reports as per HPI Musculoskeletal Musculoskeletal: Reports limited range of motion and numbness Integumentary Integumentary: Denies jaundice Neurologic Neurologic: Reports focal weakness Psychiatric Psychiatric: Reports depression; Denies anxiety Endocrine Endocrinology: Denies flushing Hematologic/Lymphatic Hematologic/Lymphatic: Reports systems reviewed and no addt'l complaints, except as documented Physical Exam Const alert and oriented x3 HEENT normocephalic Head and Scalp: atraumatic Neck full ROM, no lymphadenopathy, supple and thyroid normal General: trachea midline Lymph Lymphatic: no lymphadenopathy noted Resp normal respiratory effort Cardio regular rhythm Rate: regular rate Rhythm: regular rhythm GI soft to palpation GI Narrative: fibroids palpable in lower abdomen under umbilicus Narrative: narrow vagina with enlarged 16-18 cm irregular uterus with nodular fixed limited mobility. tender Back/Spine Back/Spine Narrative: wound vac on sacrum Extremity Extremity Narrative: right foot skin sloughing with breakdown Psych mental status grossly normal Lab / Micro Data Result Diagrams: 07/20/22 05:25 07/20/22 05:25 Labs: Laboratory Results - last 24 hr 07/19/22 11:45: Crossmatch See Detail 07/19/22 21:58: POC Glucose 128 H 07/20/22 05:25: WBC 12.6 H, RBC 4.47, Hgb 11.7 L, Hct 37.3, MCV 83.4, MCH 26.2 L , MCHC 31.4 L D, RDW Std Deviation 59.9 H, RDW Coeff of Maurizio 19.9 H, Plt Count 252, MPV 9.1, Immature Gran % (Auto) 2.500 H, Neut % (Auto) 70.1 H, Lymph % (Auto) 16.7 L, [place] % (Auto) 7.9, Eos % (Auto) 2.2, Baso % (Auto) 0.6, Absolute Neuts (auto) 8.8 H, Absolute Lymphs (auto) 2.09, Nucleated RBC % 0.2 07/20/22 05:25: Sodium 136, Potassium 4.4, Chloride 107, Carbon Dioxide 22.0, Anion Gap 7, BUN 17, Creatinine 0.76, Estim Creat Clear Calc 64.25, Est GFR (MDRD) Af Amer 107, Est GFR (MDRD) Non-Af 88, BUN/Creatinine Ratio 22.3 H, Glucose 199 H, Calcium 8.4 L, Total Bilirubin 0.60, AST 11 L, ALT 17, Alkaline Phosphatase 107, Total Protein 6.0 L, Albumin 2.2 L, Globulin 3.8, Albumin/Globulin Ratio 0.6 L 07/20/22 05:25: ESR 52 H 07/20/22 05:25: C-React Prot Ext Range 55.50 H 07/20/22 06:20: POC Glucose 185 H 07/20/22 11:13: POC Glucose 126 H 07/20/22 13:27: POC Glucose 300 H 07/20/22 15:39: POC Glucose 423 H Micro: Microbiology 07/18/22 13:59 Tissue - Sacral Gram Stain - Final 07/18/22 13:59 Tissue - Sacral Wound Culture - Preliminary Presumptive C albicans GPC Poss Enterococcus sp Gram Positive Cocci Gram negative idania 07/18/22 14:29 Tissue - Ischial Pressure Sore Gram Stain - Final 07/18/22 14:29 Tissue - Ischial Pressure Sore Wound Culture - Preliminary Gram Positive Cocci Gram negative idania Presumptive C albicans 07/18/22 14:24 Bone - Ischial Bone Gram Stain - Final 07/18/22 14:24 Bone - Ischial Bone Wound Culture - Preliminary Gram negative idania Presumptive C albicans 07/18/22 13:53 Bone - Sacral Bone Gram Stain - Final 07/18/22 13:53 Bone - Sacral Bone Wound Culture - Preliminary Pseudomonas aeruginosa 07/18/22 13:53 Bone - Sacral Bone Anaerobic Culture - Preliminary Radiology Impression Pelvis Ultrasound 07/20/22 12:55 IMPRESSION: 1. Enlarged heterogeneous uterus with multiple leiomyomas in various stages of degeneration. 2. There was a question of a separate mass in the right adnexa that may be due to enlarged right ovary but on CT there does not appear to be a separate mass and I suspect this represents an exophytic leiomyoma. Electronically Signed: Juvencio Beal MD at 17:21 EDT , Charges/Coding Visit Charges Office Visits / Consults: [id number] IP Consult L4
[2022-07-20 20:19] VITALS: BP 121/69; PULSE 107; RESP 16; TEMP 36.9; O2SAT 97
[2022-07-20] MEDS: Insulin Glargine-YFGN 100 UNIT/ML Pen 10 UNIT SC (20:23)
[2022-07-20] MEDS: FLUoxetine 20 MG Capsule PO (20:25)
[2022-07-20 20:45] VITALS: PULSE 107
[2022-07-20 21:01] LABS: Bedside Glucose 318 mg/dL (74-106)
[2022-07-21 04:07] LABS: Cancer Antigen 125 33.2 U/mL (0.0-38.1); Carcinoembryonic Antigen 2.9 ng/mL (0.0-4.7)
[2022-07-21 04:57] VITALS: BP 127/69; PULSE 95; RESP 16; TEMP 37; O2SAT 97
--- NOTE | 2022-07-21 06:08 | PN.OBGYN_ITS ---
Subjective Subjective patient denies any CP SOB pain controlled, no vaginal symptoms. Objective Data Objective Data Vital Signs: Vital Signs Temp Pulse Resp BP Pulse Ox O2 Del Method 98.6 F 95 16 127/69 H 97 Room Air 07/21/22 04:57 07/21/22 04:57 07/21/22 04:57 07/21/22 04:57 07/21/22 04:57 07/21/22 04:57 Oxygen Delivery Method Room Air Weight: 94 lb Body Mass Index (BMI) 21.0 Intake & Output: Intake and Output for Last 24 Hours 07/19/22 07/20/22 07/21/22 23:59 23:59 23:59 Intake Total 2879.08 / 2879.08 1374.17 / 1374.17 350 / 350 Output Total 2175 / 2175 2325 / 2325 800 / 800 Balance 704.08 / 704.08 -950.83 / -950.83 -450 / -450 Lab / Micro Data Result Diagrams: 07/20/22 05:25 07/20/22 05:25 Labs: Laboratory Results - last 24 hr 07/20/22 05:25: WBC 12.6 H, RBC 4.47, Hgb 11.7 L, Hct 37.3, MCV 83.4, MCH 26.2 L , MCHC 31.4 L D, RDW Std Deviation 59.9 H, RDW Coeff of Maurizio 19.9 H, Plt Count 252, MPV 9.1, Immature Gran % (Auto) 2.500 H, Neut % (Auto) 70.1 H, Lymph % (Auto) 16.7 L, [place] % (Auto) 7.9, Eos % (Auto) 2.2, Baso % (Auto) 0.6, Absolute Neuts (auto) 8.8 H, Absolute Lymphs (auto) 2.09, Nucleated RBC % 0.2 07/20/22 05:25: Sodium 136, Potassium 4.4, Chloride 107, Carbon Dioxide 22.0, Anion Gap 7, BUN 17, Creatinine 0.76, Estim Creat Clear Calc 64.25, Est GFR ( MDRD) Af Amer 107, Est GFR (MDRD) Non-Af 88, BUN/Creatinine Ratio 22.3 H, Glucose 199 H, Calcium 8.4 L, Total Bilirubin 0.60, AST 11 L, ALT 17, Alkaline Phosphatase 107, Total Protein 6.0 L, Albumin 2.2 L, Globulin 3.8, Albumin/Globulin Ratio 0.6 L 07/20/22 05:25: ESR 52 H 07/20/22 05:25: C-React Prot Ext Range 55.50 H 07/20/22 05:25: Carcinoembryonic Ag 2.9, CA 125 Antigen 33.2 07/20/22 06:20: POC Glucose 185 H 07/20/22 11:13: POC Glucose 126 H 07/20/22 13:27: POC Glucose 300 H 07/20/22 15:39: POC Glucose 423 H 07/20/22 20:22: POC Glucose 318 H 07/20/22 21:25: Vancomycin Trough Cancelled Micro: Microbiology 07/18/22 13:59 Tissue - Sacral Gram Stain - Final 07/18/22 13:59 Tissue - Sacral Wound Culture - Preliminary Presumptive C albicans GPC Poss Enterococcus sp Gram Positive Cocci Gram negative idania 07/18/22 14:29 Tissue - Ischial Pressure Sore Gram Stain - Final 07/18/22 14:29 Tissue - Ischial Pressure Sore Wound Culture - Preliminary Gram Positive Cocci Gram negative idania Presumptive C albicans 07/18/22 14:24 Bone - Ischial Bone Gram Stain - Final 07/18/22 14:24 Bone - Ischial Bone Wound Culture - Preliminary Gram negative idania Presumptive C albicans 07/18/22 13:53 Bone - Sacral Bone Gram Stain - Final 07/18/22 13:53 Bone - Sacral Bone Wound Culture - Preliminary Pseudomonas aeruginosa 07/18/22 13:53 Bone - Sacral Bone Anaerobic Culture - Preliminary 07/17/22 07:45 Wound - Buttock Gram Stain - Final 07/17/22 07:45 Wound - Buttock Wound Culture - Final Presumptive C albicans 07/16/22 12:30 Blood Culture (Wb) - Right Forearm Blood Culture - Preliminary No growth in 48 hours. 07/16/22 14:26 Blood Culture (Wb) - Anticubital Left Blood Culture - Preliminary No growth in 48 hours. Radiography Diagnostic Testing: Radiology Impression Pelvis Ultrasound 07/20/22 12:55 IMPRESSION: 1. Enlarged heterogeneous uterus with multiple leiomyomas in various stages of degeneration. 2. There was a question of a separate mass in the right adnexa that may be due to enlarged right ovary but on CT there does not appear to be a separate mass and I suspect this represents an exophytic leiomyoma. Electronically Signed: Juvencio Beal MD at 17:21 EDT , ROS Constitutional Constitutional: Reports systems reviewed and no addt'l complaints, except as documented Cardiovascular Cardiovascular: Reports systems reviewed and no addt'l complaints, except as documented Respiratory/Chest Respiratory/Chest: Reports systems reviewed and no addt'l complaints, except as documented Gastrointestinal Gastrointestinal: Reports systems reviewed and no addt'l complaints, except as documented Physical Exam Const alert, oriented x3 and no apparent distress HEENT Head and Scalp: atraumatic Resp normal respiratory effort GI soft to palpation and non-tender GI Narrative: enlarged fibroid uterus coming up under umbilicus Assessment & Plan (1) Adnexal mass: COMMENT: suspect degenerating pedunculated fibroid, recommend pelvic MRI if able, if not will evaluate at time of surgery. CEA and CA 125 low risk levels. await FSH and estradiol (2) Fibroid uterus: COMMENT: discussed low risk for uterine cancer, fibroids will shrink in menopause, may choose to not surgical remove unless desired or symptomatic. FSH and estradiol ordered to evaluate menopausal status. PLAN: Plan see a/p comments above, await fsh estradiol. declining hysterectomy. following peripherally and will be available at time of surgery if adnexal mass is not a pedunculated fibroid and is indeed ovarian in origin and would need oophorectomy. Charges/Coding Visit Charges Inpatient E&M: 45485 Subs Hosp L2
[2022-07-21 06:50] LABS: Bedside Glucose 121 mg/dL (74-106)
--- NOTE | 2022-07-21 07:22 | PN.HOSP_ITS ---
Reason for Visit Reason for Visit: Diagnoses Leiomyoma of uterus, unspecified (07/16/22) Acute posthemorrhagic anemia (07/16/22) Anemia in other chronic diseases classified elsewhere (07/16/22) Type 1 diabetes mellitus without complications (07/16/22) Type 2 diabetes mellitus without complications (07/16/22) Gangrene, not elsewhere classified (07/16/22) Cellulitis, unspecified (07/16/22) Pressure ulcer of sacral region, unstageable (07/16/22) Pressure ulcer of sacral region, stage 4 (07/16/22) Pressure ulcer of right buttock, stage 4 (07/16/22) Pressure ulcer of unspecified site, unspecified stage (07/16/22) Osteomyelitis, unspecified (07/16/22) Other specified conditions associated with female genital organs and menstrual cycle (07/16/22) Lumbar spina bifida without hydrocephalus (07/16/22) Spina bifida, unspecified (07/16/22) Unspecified urinary incontinence (07/16/22) 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 (07/16/22) Personal history of Methicillin resistant Staphylococcus aureus infection (07/16/22) Subjective Subjective Feeling somewhat tired today but overall better than she had been Objective Data Objective Data Vital Signs: Vital Signs Temp Pulse Resp BP Pulse Ox O2 Del Method 98.6 F 95 16 127/69 H 97 Room Air 07/21/22 04:57 07/21/22 04:57 07/21/22 04:57 07/21/22 04:57 07/21/22 04:57 07/21/22 04:57 Oxygen Delivery Method Room Air Weight: 42.638 kg Body Mass Index (BMI) 21.0 Intake & Output: Intake and Output for Last 24 Hours 07/19/22 07/20/22 07/21/22 23:59 23:59 23:59 Intake Total 2879.08 / 2879.08 1374.17 / 1374.17 350 / 350 Output Total 2175 / 2175 2325 / 2325 800 / 800 Balance 704.08 / 704.08 -950.83 / -950.83 -450 / -450 Lab / Micro Data Result Diagrams: 07/21/22 07:10 07/21/22 09:30 Labs: Laboratory Results - last 24 hr 07/20/22 05:25: ESR 52 H 07/20/22 05:25: C-React Prot Ext Range 55.50 H 07/20/22 05:25: Carcinoembryonic Ag 2.9, CA 125 Antigen 33.2 07/20/22 11:13: POC Glucose 126 H 07/20/22 13:27: POC Glucose 300 H 07/20/22 15:39: POC Glucose 423 H 07/20/22 20:22: POC Glucose 318 H 07/20/22 21:25: Vancomycin Trough Cancelled 07/21/22 06:26: POC Glucose 121 H Micro: Microbiology 07/18/22 14:24 Bone - Ischial Bone Gram Stain - Final 07/18/22 14:24 Bone - Ischial Bone Wound Culture - Preliminary Gram negative idania Presumptive C albicans 07/18/22 14:24 Bone - Ischial Bone Anaerobic Culture - Final No anaerobic bacteria isolated. 07/18/22 14:29 Tissue - Ischial Pressure Sore Gram Stain - Final 07/18/22 14:29 Tissue - Ischial Pressure Sore Wound Culture - Preliminary Gram Positive Cocci Gram negative idania Presumptive C albicans 07/18/22 14:29 Tissue - Ischial Pressure Sore Anaerobic Culture - Final No anaerobic bacteria isolated. 07/18/22 13:59 Tissue - Sacral Gram Stain - Final 07/18/22 13:59 Tissue - Sacral Wound Culture - Preliminary Presumptive C albicans GPC Poss Enterococcus sp Gram Positive Cocci Gram negative idania 07/18/22 13:53 Bone - Sacral Bone Gram Stain - Final 07/18/22 13:53 Bone - Sacral Bone Wound Culture - Preliminary Pseudomonas aeruginosa 07/18/22 13:53 Bone - Sacral Bone Anaerobic Culture - Preliminary 07/17/22 07:45 Wound - Buttock Gram Stain - Final 07/17/22 07:45 Wound - Buttock Wound Culture - Final Presumptive C albicans 07/16/22 12:30 Blood Culture (Wb) - Right Forearm Blood Culture - Preliminary No growth in 48 hours. 07/16/22 14:26 Blood Culture (Wb) - Anticubital Left Blood Culture - Pre liminary No growth in 48 hours. Radiography Diagnostic Testing: Radiology Impression Pelvis Ultrasound 07/20/22 12:55 IMPRESSION: 1. Enlarged heterogeneous uterus with multiple leiomyomas in various stages of degeneration. 2. There was a question of a separate mass in the right adnexa that may be due to enlarged right ovary but on CT there does not appear to be a separate mass and I suspect this represents an exophytic leiomyoma. Electronically Signed: Juvencio Beal MD at 17:21 EDT , Physical Exam Narrative General: Alert, oriented, no apparent distress HEENT: Atraumatic, normocephalic Eyes: Anicteric, normal conjunctiva, extraocular movements grossly intact Neck: Supple Respiratory: Clear to auscultation bilaterally, normal respiratory effort Cardiovascular: Regular rate and rhythm GI: Soft, nontender, nondistended Extremities: No edema Musculoskeletal: Moving freely in bed Neuro: Spina bifida Skin: Status post sacral debridement, wound VAC in place Psych: Cooperative overall Assessment & Plan Assessment/Plan (1) Wound cellulitis: (2) Decubitus ulcer: PLAN: Plan #Recurrent right ischial pressure sore, 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 White count is elevated at 16.7 and she is tachycardic consistent with an infection of note her white count has been elevated since April, she was seeing hematology for this and they feel that is likely reactive but wanted outpatient follow-up -Had been at [facility] 10 to 14 days ago and given antibiotics and improved and then once they were completed wound worsened ? We will start her on IV Zosyn ? We will consult wound care as well as plastics for possible to be debridement ? Had extensive conversation with her and her mother about the possibility of having a urostomy done as an outpatient as she has difficulty self cathing and it sounds like she has routine episodes of overflow incontinence ? We will have wound cultures as well as blood cultures obtained -07/17: White blood cell count improved slightly today, continue Zosyn, wound care, cultures pending. Tachycardia has improved. Pending plastics eval. Did have elevated ESR and CRP, will repeat in the a.m. as well. -07/18: Patient for OR with Dr. Mitchell, continue antibiotics. Preop cultures pend ing and further Intra-Op cultures to be sent based on the -07/19: Status postdebridement in OR. Did have bump in creatinine, will give IV fluids. Remains on Zosyn. Initial wound culture grew Naty but debridement and bone cultures still pending, given this in addition to right ischial bone osteomyelitis will consult infectious disease -07/20: Remains on vancomycin and Zosyn, ID following, Dr. Mitchell following. Did have increase in white blood cell count to 12.6 with left shift, will recheck i nflammatory markers and follow cultures with low threshold to reculture if needed but has been afebrile and vitally stable. Presently 1 deep wound culture growing Pseudomonas, there is also rare mixed gram-positive and gram-negative organisms and a presumptive C albicans while cultures are pulmonary, ID on board. Yesterday was reluctant to be evaluated for suprapubic catheter diverting ostomy, patient agreeable to consult to discuss. Surgery consult placed. Discussed with Dr. Marshall as well about suprapubic catheter and she can follow-up outpatient for suprapubic catheter evaluation. -07/21: On Vanco and Zosyn, final culture still pending. ID following. ?Given pelvic mass likely not ovarian/malignant in nature possibly can still proceed with ostomy, will defer to surgery. Dr. Marshall continue outpatient evaluation for suprapubic catheter and continue Ochoa at this time #Pelvic mass -CT 07/16 with 9.1 x 13.1 x 7.3 cm complex solid and cystic mass arising from the pelvis extending towards her abdomen more prominent on the right side and also prominence of the uterus suggesting fibroid uterus. 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 Pelvic ultrasound with enlarged heterogenous uterus with multiple leiomyomas and very stages of degeneration. There was a question of a separate mass in the right adnexa that may be due to enlarged right ovary but on the CT there does not appear to be a separate mass and suspect it was an exophytic leiomyoma -Gynecology following, no urgent Performance Makeup Artist-Onc surgery at this time and if patient proceeds with ostomy this can be further evaluated at the time of surgery and removed if needed or removal may not even be necessary unless symptomatic in the future. At present declining hysterectomy alone #DM2 ? Blood sugars are elevated in the setting of infection that she says that she has had fluctuations in the past ? We will continue with her long-acting insulin ? Accu-Cheks ACHS ? Sliding scale insulin ? We will make adjustments as necessary DVT: Lovealicex subq 30 minutes was spent on direct patient care as well as chart review and collaboration with colleagues Charges/Coding Visit Charges Inpatient E&M: 99999 Subs Hosp L2
[2022-07-21 07:48] LABS: Absolute Lymphocyte Count 1.15 X10^3/uL (0.83-4.51); Absolute Neutrophil Count 7.4 X10^3/uL (2.0-7.7); Basophil# 0.02 X10^3/uL; Basophil% 0.2 % (0-1); Eosinophil# 0.22 X10^3/uL; Eosinophils% 2.3 % (0-5); Hematocrit 43.9 % (37-47); Hemoglobin 12.3 g/dL (12.0-15.0); Lymphocyte # 1.15 X10^3/ul (0.83-4.51); Lymphocyte % 11.8 % (19-41); Mean Corpuscular Hgb 25.8 pg (27.0-32.0); Mean Corpuscular Volume 92.2 fL (81-99); Mean Platelet Vol. 10.2 fl (6.2-12.0); Monocyte# 0.75 X10^3/uL; Monocyte% 7.7 % (0-10); NRBC Flagged by Analyzer 0 % (0-5); Neutrophil # 7.43 X10^3/uL (2.7-7.7); Neutrophil % 76.2 % (47-70); POSITIVE MORPHOLOGY YES; Platelet Count 108 K/mm3 (150-450); Red Blood Count 4.76 M/mm3 (4.2-5.4); White Blood Count 9.8 K/mm3 (4.4-11.0)
[2022-07-21 08:06] LABS: Differential Indicated SCAN CRITERIA MET
[2022-07-21 08:42] VITALS: PULSE 70
[2022-07-21] MEDS: Enoxaparin 40 MG/0.4 ML Syringe SC (08:49)
[2022-07-21] MEDS: Nystatin Powder 15gm Bottle 1 APPLIC TOPICAL ×2 (08:49→21:28)
[2022-07-21] MEDS: Ferrous Sulfate 325 MG Tablet PO (08:49)
[2022-07-21] MEDS: Glucerna Shake 120 ML LIQUID PO ×4 (08:51→21:36)
[2022-07-21 09:56] LABS: Vancomycin, Trough Level 19.8 ug/mL (5.0-15.0)
[2022-07-21 09:57] VITALS: BP 114/60; PULSE 96; RESP 16; TEMP 37.1; O2SAT 99
[2022-07-21 09:58] LABS: ALB/GLOB Ratio 0.5 RATIO (0.9-2.4); AST(SGOT) 16 U/L (15-37); Alanine Aminotransfer ALT/SGPT 17 U/L (13-56); Albumin, Serum 2.3 g/dL (3.2-5.0); Alkaline Phosphatase 118 U/L (45-117); Anion Gap 6 (5-15); BUN 28 mg/dL (7-18); Calcium,Total 8.8 mg/dL (8.5-10.1); Chloride 106 mmol/L (98-107); Creatinine, Serum 0.74 mg/dL (0.55-1.02); EST Glomerular Filtration Rate 91 mL/min (>60); Est Glom Filt Rate - Afr Amer 111 mL/min (>60); Estimated Creatinine Clearance 65.98 ml/min; Globulin 4.5 g/dL (2.2-4.2); Glucose 157 mg/dL (74-106); Potassium 4.3 mmol/L (3.5-5.1); Protein, Total 6.8 g/dL (6.4-8.2); Sodium Level 136 mmol/L (136-145)
[2022-07-21 10:05] LABS: Estradiol 29.3 pg/mL; Follicle Stimulating Hormone 7.3 mIU/mL
--- NOTE | 2022-07-21 10:50 | PCM.RX.CS ---
Consult Pharmacy has been consulted to manage selected antiobiotic: Vancomycin Type of Consult: Follow-up Prior Doses of Antibiotics Received/Current Regimen: Medications Vancomycin HCl 750 mg/ Sodium (Chloride) 265 mls @ 250 mls/hr IV Q12H PHILLIP Last Admin: 07/21/22 09:58 Dose: 175 mls/hr Labs: Sodium 136 mmol/L (136-145) 07/21/22 09:30 Potassium 4.3 mmol/L (3.5-5.1) 07/21/22 09:30 Chloride 106 mmol/L (98-107) 07/21/22 09:30 Carbon Dioxide 24.0 mmol/L (21.0-32.0) 07/21/22 09:30 Anion Gap 6 (5-15) 07/21/22 09:30 BUN 28 mg/dL (7-18) H 07/21/22 09:30 Creatinine 0.74 mg/dL (0.55-1.02) 07/21/22 09:30 Est GFR (MDRD) Af Amer 111 mL/min (>60) 07/21/22 09:30 Est GFR (MDRD) Non-Af 91 mL/min (>60) 07/21/22 09:30 BUN/Creatinine Ratio 38.0 RATIO (10-20) H 07/21/22 09:30 Glucose 157 mg/dL (74-106) H 07/21/22 09:30 Vancomycin Trough 19.8 ug/mL (5.0-15.0) H 07/21/22 09:30 Microbiology: Microbiology 07/18/22 13:59 Tissue - Sacral Gram Stain - Final 07/18/22 13:59 Tissue - Sacral Wound Culture - Final Presumptive C albicans Enterococcus faecalis Staphylococcus epidermidis Pseudomonas aeruginosa 07/18/22 14:24 Bone - Ischial Bone Gram Stain - Final 07/18/22 14:24 Bone - Ischial Bone Wound Culture - Final Pseudomonas aeruginosa Presumptive C albicans 07/18/22 14:24 Bone - Ischial Bone Anaerobic Culture - Final No anaerobic bacteria isolated. 07/18/22 14:29 Tissue - Ischial Pressure Sore Gram Stain - Final 07/18/22 14:29 Tissue - Ischial Pressure Sore Wound Culture - Final Enterococcus faecalis Pseudomonas aeruginosa Presumptive C albicans 07/18/22 14:29 Tissue - Ischial Pressure Sore Anaerobic Culture - Final No anaerobic bacteria isolated. 07/18/22 13:53 Bone - Sacral Bone Gram Stain - Final 07/18/22 13:53 Bone - Sacral Bone Wound Culture - Preliminary Pseudomonas aeruginosa 07/17/22 07:45 Wound - Buttock Gram Stain - Final 07/17/22 07:45 Wound - Buttock Wound Culture - Final Presumptive C albicans 07/16/22 12:30 Blood Culture (Wb) - Right Forearm Blood Culture - Preliminary No growth in 48 hours. 07/16/22 14:26 Blood Culture (Wb) - Anticubital Left Blood Culture - Preliminary No growth in 48 hours. Weight used for dosin kg Goal Trough: 15-20 mcg/mL Pharmacy Plan for Drug Dosin hour level at upper limit of goal range. Recommend to reduce dose to 500mg IV q12h and re-check trough in 2 days. Pharmacy Service will continue to monitor and adjust dosing as required. Follow-Up Labs: Trough Vancomycin - 07/23 @ 0930
[2022-07-21 11:16] LABS: Anisocytosis 2+; Differential Comment SCANNED; Macrocytosis 1+; Microcytosis 1+
[2022-07-21] MEDS: Insulin Lispro 100 UNIT/ML INSULN.PEN SC ×3 (12:01→21:27)
[2022-07-21 12:41] LABS: Bedside Glucose 362 mg/dL (74-106)
--- NOTE | 2022-07-21 12:44 | CASEMGMT ---
Social Work SW met w/pt and pt's mother, support offered. SW remains available for support and to assist w/SNF placement. BERNARD Pino
[2022-07-21 14:50] VITALS: BP 136/68; PULSE 110; RESP 18; TEMP 37; O2SAT 99
[2022-07-21] MEDS: Juven (unflavored) Packet 1 PACKET PO (16:26)
[2022-07-21 17:05] LABS: Bedside Glucose 294 mg/dL (74-106)
[2022-07-21] MEDS: Insulin Glargine-YFGN 100 UNIT/ML Pen 10 UNIT SC (21:28)
[2022-07-21] MEDS: FLUoxetine 20 MG Capsule PO (21:29)
[2022-07-21 21:40] VITALS: BP 132/80; PULSE 112; RESP 16; TEMP 36.8; O2SAT 94
[2022-07-21] MEDS: Docusate Sodium 100 MG Capsule PO (21:40)
[2022-07-21 21:51] LABS: Bedside Glucose 494 mg/dL (74-106)
[2022-07-21 22:28] LABS: Glucose 561 mg/dL (74-106)
[2022-07-22] MEDS: Insulin Lispro 100 UNIT/ML INSULN.PEN SC ×5 (00:26→22:30)
[2022-07-22 06:23] VITALS: BP 116/67; PULSE 94; RESP 16; TEMP 36.8; O2SAT 98
[2022-07-22 06:56] LABS: Absolute Lymphocyte Count 1.41 X10^3/uL (0.83-4.51); Absolute Neutrophil Count 8.1 X10^3/uL (2.0-7.7); Basophil# 0.03 X10^3/uL; Basophil% 0.3 % (0-1); Eosinophil# 0.26 X10^3/uL; Eosinophils% 2.4 % (0-5); Hematocrit 37.9 % (37-47); Hemoglobin 11.7 g/dL (12.0-15.0); Lymphocyte # 1.41 X10^3/ul (0.83-4.51); Mean Corp Hgb Conc 30.9 g/dL (32-36); Mean Corpuscular Hgb 25.9 pg (27.0-32.0); Mean Corpuscular Volume 83.8 fL (81-99); Mean Platelet Vol. 9.1 fl (6.2-12.0); Monocyte# 0.89 X10^3/uL; Monocyte% 8.2 % (0-10); NRBC Flagged by Analyzer 0 % (0-5); Neutrophil # 8.07 X10^3/uL (2.7-7.7); Neutrophil % 74.3 % (47-70); POSITIVE MORPHOLOGY YES; Platelet Count 274 K/mm3 (150-450); RBC Distribution Width CV 20.6 % (11.6-14.6); RBC Distribution Width SD 62.4 fl (35.1-43.9); Red Blood Count 4.52 M/mm3 (4.2-5.4); White Blood Count 10.9 K/mm3 (4.4-11.0)
[2022-07-22 06:58] LABS: Differential Indicated SCAN CRITERIA MET
[2022-07-22 07:10] LABS: Bedside Glucose 218 mg/dL (74-106)
[2022-07-22 07:17] LABS: Anisocytosis 1+; Differential Comment SCANNED
[2022-07-22 07:29] LABS: ALB/GLOB Ratio 0.5 RATIO (0.9-2.4); AST(SGOT) 17 U/L (15-37); Alanine Aminotransfer ALT/SGPT 17 U/L (13-56); Albumin, Serum 2.2 g/dL (3.2-5.0); Alkaline Phosphatase 132 U/L (45-117); Anion Gap 7 (5-15); BUN 29 mg/dL (7-18); BUN/Creat Ratio 38.7 RATIO (10-20); Calcium,Total 8.6 mg/dL (8.5-10.1); Chloride 104 mmol/L (98-107); Creatinine, Serum 0.75 mg/dL (0.55-1.02); EST Glomerular Filtration Rate 90 mL/min (>60); Est Glom Filt Rate - Afr Amer 108 mL/min (>60); Globulin 4.7 g/dL (2.2-4.2); Glucose 220 mg/dL (74-106); Potassium 4.3 mmol/L (3.5-5.1); Protein, Total 6.9 g/dL (6.4-8.2); Sodium Level 134 mmol/L (136-145)
--- NOTE | 2022-07-22 07:58 | PCM.PN.SRG ---
Subjective Subjective No changes overnight Objective Data Objective Data Vital Signs: Vital Signs Temp Pulse Resp BP Pulse Ox O2 Del Method 98.3 F 94 16 116/67 98 Room Air 07/22/22 06:23 07/22/22 06:23 07/22/22 06:23 07/22/22 06:23 07/22/22 06:23 07/22/22 06:23 Oxygen Delivery Method Room Air Weight: 94 lb Body Mass Index (BMI) 21.0 Intake & Output: Intake and Output for Last 24 Hours 07/20/22 07/21/22 07/22/22 23:59 23:59 23:59 Intake Total 1374.17 / 1374.17 965 / 965 415 / 415 Output Total 2325 / 2325 1050 / 1050 1200 / 1200 Balance -950.83 / -950.83 -85 / -85 -785 / -785 Lab / Micro Data Result Diagrams: 07/22/22 06:30 07/22/22 06:30 Labs: Laboratory Results - last 24 hr 07/21/22 07:10: WBC 9.8, RBC 4.76, Hgb 12.3, Hct 43.9, MCV 92.2 D, MCH 25.8 L, MCHC 28.0 L D, RDW Std Deviation 69.0 H, RDW Coeff of Maurizio 21.0 H, Plt Count 108 L, MPV 10.2, Immature Gran % (Auto) 1.800 H, Neut % (Auto) 76.2 H, Lymph % (Auto) 11.8 L, [place] % (Auto) 7.7, Eos % (Auto) 2.3, Baso % (Auto) 0.2, Absolute Neuts (auto) 7.4, Absolute Lymphs (auto) 1.15, Nucleated RBC % 0, Differential Comment SCANNED, Anisocytosis 2+, Microcytosis 1+, Macrocytosis 1+ 07/21/22 07:10: Sodium Cancelled, Potassium Cancelled, Chloride Cancelled, Carbon Dioxide Cancelled, Anion Gap Cancelled, BUN Cancelled, Creatinine Cancelled, Estim Creat Clear Calc Cancelled, Est GFR (MDRD) Af Amer Cancelled, Est GFR (MDRD) Non-Af Cancelled, BUN/Creatinine Ratio Cancelled, Glucose Cancelled, Calcium Cancelled, Total Bilirubin Cancelled, AST Cancelled, ALT Cancelled, Alkaline Phosphatase Cancelled, Total Protein Cancelled, Albumin Cancelled, Globulin Cancelled, Albumin/Globulin Ratio Cancelled 07/21/22 07:10: Estradiol (E2) Level Cancelled, FSH Cancelled 07/21/22 09:30: Vancomycin Trough 19.8 H 07/21/22 09:30: Sodium 136, Potassium 4.3, Chloride 106, Carbon Dioxide 24.0, Anion Gap 6, BUN 28 H, Creatinine 0.74, Estim Creat Clear Calc 65.98, Est GFR (MDRD) Af Amer 111, Est GFR (MDRD) Non-Af 91, BUN/Creatinine Ratio 38.0 H, Glucose 157 H, Calcium 8.8, Total Bilirubin 0.60, AST 16, ALT 17, Alkaline Phosphatase 118 H, Total Protein 6.8, Albumin 2.3 L, Globulin 4.5 H, Albumin/Globulin Ratio 0.5 L 07/21/22 09:30: Estradiol (E2) Level 29.3, FSH 7.3 07/21/22 11:58: POC Glucose 362 H 07/21/22 15:46: POC Glucose 294 H 07/21/22 21:24: POC Glucose 494 H* 07/21/22 21:48: Glucose 561 H* 07/22/22 06:30: WBC 10.9, RBC 4.52, Hgb 11.7 L, Hct 37.9, MCV 83.8 D, MCH 25.9 L, MCHC 30.9 L D, RDW Std Deviation 62.4 H, RDW Coeff of Maurizio 20.6 H, Plt Count 274, MPV 9.1, Immature Gran % (Auto) 1.800 H, Neut % (Auto) 74.3 H, Lymph % (Auto) 13.0 L, [place] % (Auto) 8.2, Eos % (Auto) 2.4, Baso % (Auto) 0.3, Absolute Neuts (auto) 8.1 H, Absolute Lymphs (auto) 1.41, Nucleated RBC % 0, Differential Comment SCANNED, Anisocytosis 1+ 07/22/22 06:30: Sodium 134 L, Potassium 4.3, Chloride 104, Carbon Dioxide 23.0, Anion Gap 7, BUN 29 H, Creatinine 0.75, Estim Creat Clear Calc 65.10, Est GFR (MDRD) Af Amer 108, Est GFR (MDRD) Non-Af 90, BUN/Creatinine Ratio 38.7 H, Glucose 220 H, Calcium 8.6, Total Bilirubin 0.50, AST 17, ALT 17, Alkaline Phosphatase 132 H, C-React Prot Ext Range 94.80 H, Total Protein 6.9, Albumin 2.2 L, Globulin 4.7 H, Albumin/Globulin Ratio 0.5 L 07/22/22 06:33: POC Glucose 218 H Micro: Microbiology 07/18/22 13:59 Tissue - Sacral Gram Stain - Final 07/18/22 13:59 Tissue - Sacral Wound Culture - Final Presumptive C albicans Enterococcus faecalis Staphylococcus epidermidis Pseudomonas aeruginosa 07/18/22 13:59 Tissue - Sacral Anaerobic Culture - Preliminary 07/16/22 12:30 Blood Culture (Wb) - Right Forearm Blood Culture - Final No growth in 5 days. 07/16/22 14:26 Blood Culture (Wb) - Anticubital Left Blood Culture - Final No growth in 5 days. 07/18/22 13:53 Bone - Sacral Bone Gram Stain - Final 07/18/22 13:53 Bone - Sacral Bone Wound Culture - Final Pseudomonas aeruginosa 07/18/22 14:24 Bone - Ischial Bone Gram Stain - Final 07/18/22 14:24 Bone - Ischial Bone Wound Culture - Final Pseudomonas aeruginosa Presumptive C albicans 07/18/22 14:24 Bone - Ischial Bone Anaerobic Culture - Final No anaerobic bacteria isolated. 07/18/22 14:29 Tissue - Ischial Pressure Sore Gram Stain - Final 07/18/22 14:29 Tissue - Ischial Pressure Sore Wound Culture - Final Enterococcus faecalis Pseudomonas aeruginosa Presumptive C albicans 07/18/22 14:29 Tissue - Ischial Pressure Sore Anaerobic Culture - Final No anaerobic bacteria isolated. 07/17/22 07:45 Wound - Buttock Gram Stain - Final 07/17/22 07:45 Wound - Buttock Wound Culture - Final Presumptive C albicans Physical Exam Const oriented x3 Resp normal respiratory effort Cardio regular rate GI soft to palpation and non-tender Assessment & Plan Assessment/Plan (1) Pressure ulcer of sacral region, stage 4: PLAN: I discussed the case with MANAGER SYSTEM, and it is her feeling that this is likely pedunculated fibroid. It is felt that this is not need to be removed unless it is attached to the ovary. She would still like to obtain MRI. As long as we get the information about her MANAGING JEWELER shunt tomorrow we can obtain a pelvic MRI early this week. If it is deemed that this does not be removed I will work around it and perform her diverting colostomy later in the week. Roe Gomez MD Pager: [facility] [address] [place] [address], [address] [place] [address] Office:
--- NOTE | 2022-07-22 08:22 | PCM.PN.HOSP ---
Reason for Visit Reason for Visit: Diagnoses Leiomyoma of uterus, unspecified (07/16/22) Acute posthemorrhagic anemia (07/16/22) Anemia in other chronic diseases classified elsewhere (07/16/22) Type 1 diabetes mellitus without complications (07/16/22) Type 2 diabetes mellitus without complications (07/16/22) Gangrene, not elsewhere classified (07/16/22) Cellulitis, unspecified (07/16/22) Pressure ulcer of sacral region, unstageable (07/16/22) Pressure ulcer of sacral region, stage 4 (07/16/22) Pressure ulcer of right buttock, stage 4 (07/16/22) Pressure ulcer of unspecified site, unspecified stage (07/16/22) Osteomyelitis, unspecified (07/16/22) Other specified conditions associated with female genital organs and menstrual cycle (07/16/22) Lumbar spina bifida without hydrocephalus (07/16/22) Spina bifida, unspecified (07/16/22) Unspecified urinary incontinence (07/16/22) 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 but otherwise no voiced complaints Objective Data Objective Data Vital Signs: Vital Signs Temp Pulse Resp BP Pulse Ox O2 Del Method 98.3 F 94 16 116/67 98 Room Air 07/22/22 06:23 07/22/22 06:23 07/22/22 06:23 07/22/22 06:23 07/22/22 06:23 07/22/22 06:23 Oxygen Delivery Method Room Air Weight: 42.638 kg Body Mass Index (BMI) 21.0 Intake & Output: Intake and Output for Last 24 Hours 07/20/22 07/21/22 07/22/22 23:59 23:59 23:59 Intake Total 1374.17 / 1374.17 965 / 965 415 / 415 Output Total 2325 / 2325 1050 / 1050 1200 / 1200 Balance -950.83 / -950.83 -85 / -85 -785 / -785 Lab / Micro Data Result Diagrams: 07/22/22 06:30 07/22/22 06:30 Labs: Laboratory Results - last 24 hr 07/21/22 07:10: Differential Comment SCANNED, Anisocytosis 2+, Microcytosis 1+, Macrocytosis 1+ 07/21/22 07:10: Sodium Cancelled, Potassium Cancelled, Chloride Cancelled, Carbon Dioxide Cancelled, Anion Gap Cancelled, BUN Cancelled, Creatinine Cancelled, Estim Creat Clear Calc Cancelled, Est GFR (MDRD) Af Amer Cancelled, Est GFR (MDRD) Non-Af Cancelled, BUN/Creatinine Ratio Cancelled, Glucose Cancelled, Calcium Cancelled, Total Bilirubin Cancelled, AST Cancelled, ALT Cancelled, Alkaline Phosphatase Cancelled, Total Protein Cancelled, Albumin Cancelled, Globulin Cancelled, Albumin/Globulin Ratio Cancelled 07/21/22 07:10: Estradiol (E2) Level Cancelled, FSH Cancelled 07/21/22 09:30: Vancomycin Trough 19.8 H 07/21/22 09:30: Sodium 136, Potassium 4.3, Chloride 106, Carbon Dioxide 24.0, Anion Gap 6, BUN 28 H, Creatinine 0.74, Estim Creat Clear Calc 65.98, Est GFR (MDRD) Af Amer 111, Est GFR (MDRD) Non-Af 91, BUN/Creatinine Ratio 38.0 H, Glucose 157 H, Calcium 8.8, Total Bilirubin 0.60, AST 16, ALT 17, Alkaline Phosphatase 118 H, Total Protein 6.8, Albumin 2.3 L, Globulin 4.5 H, Albumin/Globulin Ratio 0.5 L 07/21/22 09:30: Estradiol (E2) Level 29.3, FSH 7.3 07/21/22 11:58: POC Glucose 362 H 07/21/22 15:46: POC Glucose 294 H 07/21/22 21:24: POC Glucose 494 H* 07/21/22 21:48: Glucose 561 H* 07/22/22 06:30: WBC 10.9, RBC 4.52, Hgb 11.7 L, Hct 37.9, MCV 83.8 D, MCH 25.9 L, MCHC 30.9 L D, RDW Std Deviation 62.4 H, RDW Coeff of Maurizio 20.6 H, Plt Count 274, MPV 9.1, Immature Gran % (Auto) 1.800 H, Neut % (Auto) 74.3 H, Lymph % (Auto) 13.0 L, Meagher % (Auto) 8.2, Eos % (Auto) 2.4, Baso % (Auto) 0.3, Absolute Neuts (auto) 8.1 H, Absolute Lymphs (auto) 1.41, Nucleated RBC % 0, Differential Comment SCANNED, Anisocytosis 1+ 07/22/22 06:30: Sodium 134 L, Potassium 4.3, Chloride 104, Carbon Dioxide 23.0, Anion Gap 7, BUN 29 H, Creatinine 0.75, Estim Creat Clear Calc 65.10, Est GFR (MDRD) Af Amer 108, Est GFR (MDRD) Non-Af 90, BUN/Creatinine Ratio 38.7 H, Glucose 220 H, Calcium 8.6, Total Bilirubin 0.50, AST 17, ALT 17, Alkaline Phosphatase 132 H, C-React Prot Ext Range 94.80 H, Total Protein 6.9, Albumin 2.2 L, Globulin 4.7 H, Albumin/Globulin Ratio 0.5 L 07/22/22 06:33: POC Glucose 218 H Micro: Microbiology 07/18/22 13:59 Tissue - Sacral Gram Stain - Final 07/18/22 13:59 Tissue - Sacral Wound Culture - Final Presumptive C albicans Enterococcus faecalis Staphylococcus epidermidis Pseudomonas aeruginosa 07/18/22 13:59 Tissue - Sacral Anaerobic Culture - Preliminary 07/16/22 12:30 Blood Culture (Wb) - Right Forearm Blood Culture - Final No growth in 5 days. 07/16/22 14:26 Blood Culture (Wb) - Anticubital Left Blood Culture - Final No growth in 5 days. 07/18/22 13:53 Bone - Sacral Bone Gram Stain - Final 07/18/22 13:53 Bone - Sacral Bone Wound Culture - Final Pseudomonas aeruginosa 07/18/22 14:24 Bone - Ischial Bone Gram Stain - Final 07/18/22 14:24 Bone - Ischial Bone Wound Culture - Final Pseudomonas aeruginosa Presumptive C albicans 07/18/22 14:24 Bone - Ischial Bone Anaerobic Culture - Final No anaerobic bacteria isolated. 07/18/22 14:29 Tissue - Ischial Pressure Sore Gram Stain - Final 07/18/22 14:29 Tissue - Ischial Pressure Sore Wound Culture - Final Enterococcus faecalis Pseudomonas aeruginosa Presumptive C albicans 07/18/22 14:29 Tissue - Ischial Pressure Sore Anaerobic Culture - Final No anaerobic bacteria isolated. 07/17/22 07:45 Wound - Buttock Gram Stain - Final 07/17/22 07:45 Wound - Buttock Wound Culture - Final Presumptive C albicans Physical Exam Narrative General: Alert, oriented, no apparent distress HEENT: Atraumatic, normocephalic Eyes: Anicteric, normal conjunctiva, extraocular movements grossly intact Neck: Supple Respiratory: Clear to auscultation bilaterally, normal respiratory effort Cardiovascular: Regular rate and rhythm GI: Soft, nontender, nondistended Extremities: No edema Musculoskeletal: Moving freely in bed Neuro: Spina bifida Skin: Status post sacral debridement, wound VAC in place Psych: Cooperative overall Assessment & Plan Assessment/Plan (1) Wound cellulitis: (2) Decubitus ulcer: PLAN: Plan #Recurrent right ischial pressure sore, 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 White count is elevated at 16.7 and she is tachycardic consistent with an infection of note her white count has been elevated since April, she was seeing hematology for this and they feel that is likely reactive but wanted outpatient follow-up -Had been at [facility] 10 to 14 days ago and given antibiotics and improved and then once they were completed wound worsened ? We will start her on IV Zosyn ? We will consult wound care as well as plastics for possible to be debridement ? Had extensive conversation with her and her mother about the possibility of having a urostomy done as an outpatient as she has difficulty self cathing and it sounds like she has routine episodes of overflow incontinence ? We will have wound cultures as well as blood cultures obtained -07/17: White blood cell count improved slightly today, continue Zosyn, wound care, cultures pending. Tachycardia has improved. Pending plastics eval. Did have elevated ESR and CRP, will repeat in the a.m. as well. -07/18: Patient for OR with Dr. Mitchell, continue antibiotics. Preop cultures pending and further Intra-Op cultures to be sent based on the -07/19: Status postdebridement in OR. Did have bump in creatinine, will give IV fluids. Remains on Zosyn. Initial wound culture grew Naty but debridement and bone cultures still pending, given this in addition to right ischial bone osteomyelitis will consult infectious disease -07/20: Remains on vancomycin and Zosyn, ID following, Dr. Mitchell following. Did have increase in white blood cell count to 12.6 with left shift, will recheck inflammatory markers and follow cultures with low threshold to reculture if needed but has been afebrile and vitally stable. Presently 1 deep wound culture growing Pseudomonas, there is also rare mixed gram-positive and gram-negative organisms and a presumptive C albicans while cultures are pulmonary, ID on board. Yesterday was reluctant to be evaluated for suprapubic catheter diverting ostomy, patient agreeable to consult to discuss. Surgery consult placed. Discussed with Dr. Marshall as well about suprapubic catheter and she can follow-up outpatient for suprapubic catheter evaluation. -07/21: On Vanco and Zosyn, final culture still pending. ID following. ?Given pelvic mass likely not ovarian/malignant in nature possibly can still proceed with ostomy, will defer to surgery. Dr. Marshall continue outpatient evaluation for suprapubic catheter and continue Ochoa at this time -07/22: Compared across all cultures, to grew enteric coccus sensitive to ampicillin, linezolid, vancomycin, 1 culture grew staph epi sensitive to linezolid and thank, will continue vancomycin. Had Pseudomonas resulted across multiple cultures with various sensitivities, primarily sensitive to Cipro, levo, Merrem with 2 Pseudomonas resulting where 1 was only sensitive to amikacin and Merrem and the other Pseudomonas sensitive to Cipro and Levaquin. Given increasing inflammatory markers with a left shift I called micro lab to discuss sensitivities and they confirmed/double checked that Zosyn not being listed on the sensitivities of her cultures means that she is resistant to Zosyn across all Pseudomonas strains growing. We will continue Vanc but will change her to Merrem and Cipro. Hopefully will get information from [facility] regarding her CLINICAL INFORMATICS DIRECTOR shunt tomorrow and can obtain a pelvic MRI earlier in the week and diverting colostomy later in the week. #Pelvic mass -CT 07/16 with 9.1 x 13.1 x 7.3 cm complex solid and cystic mass arising from the pelvis extending towards her abdomen more prominent on the right side and also prominence of the uterus suggesting fibroid uterus. Upon taking over from admitting physician this was reviewed but given read of large heterogenous mass in lower abdomen and pelvis as described with fibroid uterus it seemed that this was described with the fibroid uterus -Upon eval by surgery they reviewed the CT and had higher level of concern and inpatient work-up/consult for this which is very reasonable, gynecology contacted and preferred MRI however patient had CLINICAL INFORMATICS DIRECTOR shunt in the 80s that are presently nonfunctional but were never removed and she does not know the make/model or the ability to point us in the direction of anyone who would so we have been unable to get MRI. Pelvic ultrasound with enlarged heterogenous uterus with multiple leiomyomas and very stages of degeneration. There was a question of a separate mass in the right adnexa that may be due to enlarged right ovary but on the CT there does not appear to be a separate mass and suspect it was an exophytic leiomyoma -Gynecology following, no urgent Resident Caregiver-Onc surgery at this time and if patient proceeds with ostomy this can be further evaluated at the time of surgery and removed if needed or removal may not even be necessary unless symptomatic in the future. At present declining hysterectomy alone #DM2 ? Blood sugars are elevated in the setting of infection that she says that she has had fluctuations in the past ? We will continue with her long-acting insulin ? Accu-Cheks ACHS ? Sliding scale insulin ? We will make adjustments as necessary DVT: Lovenox subq 30 minutes was spent on direct patient care as well as chart review and collaboration with colleagues Charges/Coding Visit Charges Inpatient E&M: 22349 Subs Hosp L2
[2022-07-22 08:23] LABS: Erythrocyte Sedimentation Rate 80 mm/hr (0-30)
[2022-07-22 09:56] LABS: Bedside Glucose 75 mg/dL (74-106)
[2022-07-22] MEDS: Glucerna Shake 120 ML LIQUID PO ×4 (10:09→22:28)
[2022-07-22] MEDS: Docusate Sodium 100 MG Capsule PO ×2 (10:17→20:56)
[2022-07-22] MEDS: Nystatin Powder 15gm Bottle 1 APPLIC TOPICAL ×2 (10:19→21:04)
[2022-07-22] MEDS: Enoxaparin 40 MG/0.4 ML Syringe SC (10:19)
[2022-07-22] MEDS: Ferrous Sulfate 325 MG Tablet PO (10:20)
[2022-07-22 10:29] VITALS: BP 125/65; PULSE 96; RESP 16; TEMP 36.8; O2SAT 97
--- NOTE | 2022-07-22 10:54 | PCM.PN.OB ---
Subjective Subjective patient denies any CP SOB, pain controlled, no vaginal symptoms Objective Data Objective Data Vital Signs: Vital Signs Temp Pulse Resp BP Pulse Ox O2 Del Method 98.3 F 96 16 125/65 H 97 Room Air 07/22/22 10:29 07/22/22 10:29 07/22/22 10:29 07/22/22 10:29 07/22/22 10:29 07/22/22 10:29 Oxygen Delivery Method Room Air Weight: 94 lb Body Mass Index (BMI) 21.0 Intake & Output: Intake and Output for Last 24 Hours 07/20/22 07/21/22 07/22/22 23:59 23:59 23:59 Intake Total 1374.17 / 1374.17 965 / 965 470.54 / 470.54 Output Total 2325 / 2325 1050 / 1050 1200 / 1200 Balance -950.83 / -950.83 -85 / -85 -729.46 / -729.46 Lab / Micro Data Attestation: I reviewed the patient's lab results. Result Diagrams: 07/22/22 06:30 07/22/22 06:30 Labs: Laboratory Results - last 24 hr 07/21/22 07:10: Differential Comment SCANNED, Anisocytosis 2+, Microcytosis 1+, Macrocytosis 1+ 07/21/22 11:58: POC Glucose 362 H 07/21/22 15:46: POC Glucose 294 H 07/21/22 21:24: POC Glucose 494 H* 07/21/22 21:48: Glucose 561 H* 07/22/22 06:30: WBC 10.9, RBC 4.52, Hgb 11.7 L, Hct 37.9, MCV 83.8 D, MCH 25.9 L, MCHC 30.9 L D, RDW Std Deviation 62.4 H, RDW Coeff of Maurizio 20.6 H, Plt Count 274, MPV 9.1, Immature Gran % (Auto) 1.800 H, Neut % (Auto) 74.3 H, Lymph % (Auto) 13.0 L, [place] % (Auto) 8.2, Eos % (Auto) 2.4, Baso % (Auto) 0.3, Absolute Neuts (auto) 8.1 H, Absolute Lymphs (auto) 1.41, Nucleated RBC % 0, Differential Comment SCANNED, Anisocytosis 1+, ESR 80 H 07/22/22 06:30: Sodium 134 L, Potassium 4.3, Chloride 104, Carbon Dioxide 23.0, Anion Gap 7, BUN 29 H, Creatinine 0.75, Estim Creat Clear Calc 65.10, Est GFR (MDRD) Af Amer 108, Est GFR (MDRD) Non-Af 90, BUN/Creatinine Ratio 38.7 H, Glucose 220 H, Calcium 8.6, Total Bilirubin 0.50, AST 17, ALT 17, Alkaline Phosphatase 132 H, C-React Prot Ext Range 94.80 H, Total Protein 6.9, Albumin 2.2 L, Globulin 4.7 H, Albumin/Globulin Ratio 0.5 L 07/22/22 06:33: POC Glucose 218 H 07/22/22 09:35: POC Glucose 75 Micro: Microbiology 07/18/22 13:59 Tissue - Sacral Gram Stain - Final 07/18/22 13:59 Tissue - Sacral Wound Culture - Final Presumptive C albicans Enterococcus faecalis Staphylococcus epidermidis Pseudomonas aeruginosa 07/18/22 13:59 Tissue - Sacral Anaerobic Culture - Final Anaerobic cocci 07/16/22 12:30 Blood Culture (Wb) - Right Forearm Blood Culture - Final No growth in 5 days. 07/16/22 14:26 Blood Culture (Wb) - Anticubital Left Blood Culture - Final No growth in 5 days. 07/18/22 13:53 Bone - Sacral Bone Gram Stain - Final 07/18/22 13:53 Bone - Sacral Bone Wound Culture - Final Pseudomonas aeruginosa 07/18/22 14:24 Bone - Ischial Bone Gram Stain - Final 07/18/22 14:24 Bone - Ischial Bone Wound Culture - Final Pseudomonas aeruginosa Presumptive C albicans 07/18/22 14:24 Bone - Ischial Bone Anaerobic Culture - Final No anaerobic bacteria isolated. 07/18/22 14:29 Tissue - Ischial Pressure Sore Gram Stain - Final 07/18/22 14:29 Tissue - Ischial Pressure Sore Wound Culture - Final Enterococcus faecalis Pseudomonas aeruginosa Presumptive C albicans 07/18/22 14:29 Tissue - Ischial Pressure Sore Anaerobic Culture - Final No anaerobic bacteria isolated. 07/17/22 07:45 Wound - Buttock Gram Stain - Final 07/17/22 07:45 Wound - Buttock Wound Culture - Final Presumptive C albicans ROS Constitutional Constitutional: Reports systems reviewed and no addt'l complaints, except as documented Cardiovascular Cardiovascular: Reports systems reviewed and no addt'l complaints, except as documented Respiratory/Chest Respiratory/Chest: Reports systems reviewed and no addt'l complaints, except as documented Gastrointestinal Gastrointestinal: Reports systems reviewed and no addt'l complaints, except as documented Physical Exam Const alert, oriented x3 and no apparent distress HEENT normocephalic Head and Scalp: atraumatic Resp normal respiratory effort GI soft to palpation and non-tender GI Narrative: enlarged uterine fibroid, uterus coming up under umbilicus Psych mental status grossly normal Assessment & Plan (1) Adnexal mass: COMMENT: suspect degenerating pedunculated fibroid, recommend pelvic MRI if able, if not will evaluate at time of surgery. CEA and CA 125 low risk levels. FSH and estradiol-premenopausal range (2) Fibroid uterus: COMMENT: discussed low risk for uterine cancer, fibroids will shrink in menopause, may choose to not surgical remove unless desired or symptomatic. FSH and estradiol ordered to evaluate menopausal status-premenopausal range. PLAN: Plan see a/p comments above. FSH and Estradiol indicate premenopausal status. declining hysterectomy. Physician will to continue to follow. See previous note by Dr Gunter for further surgical plan. Charges/Coding Visit Charges Inpatient E&M: 26454 Subs Hosp L2
[2022-07-22 12:01] LABS: Bedside Glucose 162 mg/dL (74-106)
[2022-07-22 13:26] LABS: Bedside Glucose 196 mg/dL (74-106)
[2022-07-22] MEDS: 0.9% Saline Lock 10 ML Syringe IV (13:56)
[2022-07-22 16:00] VITALS: BP 132/75; PULSE 92; RESP 17; TEMP 37.1; O2SAT 97
[2022-07-22 18:36] LABS: Bedside Glucose 236 mg/dL (74-106)
[2022-07-22] MEDS: FLUoxetine 20 MG Capsule PO (20:57)
[2022-07-22 21:11] VITALS: BP 132/75; PULSE 107; RESP 16; TEMP 36.8; O2SAT 95
[2022-07-22] MEDS: Insulin Glargine-YFGN 100 UNIT/ML Pen 10 UNIT SC (22:30)
[2022-07-22 23:00] LABS: Bedside Glucose 277 mg/dL (74-106)
[2022-07-23 06:16] VITALS: BP 130/70; PULSE 106; RESP 16; TEMP 36.9; O2SAT 94
[2022-07-23 06:19] LABS: Absolute Lymphocyte Count 1.72 X10^3/uL (0.83-4.51); Absolute Neutrophil Count 7.7 X10^3/uL (2.0-7.7); Basophil# 0.04 X10^3/uL; Basophil% 0.4 % (0-1); Eosinophil# 0.34 X10^3/uL; Eosinophils% 3.1 % (0-5); Hematocrit 36.5 % (37-47); Hemoglobin 11.1 g/dL (12.0-15.0); Lymphocyte # 1.72 X10^3/ul (0.83-4.51); Lymphocyte % 15.9 % (19-41); Mean Corp Hgb Conc 30.4 g/dL (32-36); Mean Corpuscular Hgb 25.7 pg (27.0-32.0); Mean Corpuscular Volume 84.5 fL (81-99); Mean Platelet Vol. 8.9 fl (6.2-12.0); Monocyte# 0.88 X10^3/uL; Monocyte% 8.1 % (0-10); NRBC Flagged by Analyzer 0 % (0-5); Neutrophil # 7.71 X10^3/uL (2.7-7.7); Neutrophil % 71.3 % (47-70); POSITIVE MORPHOLOGY YES; Platelet Count 302 K/mm3 (150-450); RBC Distribution Width CV 20.4 % (11.6-14.6); RBC Distribution Width SD 62.8 fl (35.1-43.9); Red Blood Count 4.32 M/mm3 (4.2-5.4); White Blood Count 10.8 K/mm3 (4.4-11.0)
[2022-07-23 06:22] LABS: Differential Indicated SCAN CRITERIA MET
[2022-07-23 06:31] LABS: Erythrocyte Sedimentation Rate 80 mm/hr (0-30)
[2022-07-23] MEDS: Insulin Lispro 100 UNIT/ML INSULN.PEN SC ×4 (06:31→20:25)
[2022-07-23 06:43] LABS: Anisocytosis 2+
[2022-07-23 07:00] LABS: Bedside Glucose 175 mg/dL (74-106)
[2022-07-23 07:02] LABS: ALB/GLOB Ratio 0.5 RATIO (0.9-2.4); AST(SGOT) 18 U/L (15-37); Alanine Aminotransfer ALT/SGPT 23 U/L (13-56); Albumin, Serum 2.1 g/dL (3.2-5.0); Alkaline Phosphatase 107 U/L (45-117); Anion Gap 8 (5-15); BUN 23 mg/dL (7-18); BUN/Creat Ratio 29.6 RATIO (10-20); Calcium,Total 8.7 mg/dL (8.5-10.1); Chloride 107 mmol/L (98-107); Creatinine, Serum 0.78 mg/dL (0.55-1.02); EST Glomerular Filtration Rate 86 mL/min (>60); Est Glom Filt Rate - Afr Amer 104 mL/min (>60); Globulin 4.2 g/dL (2.2-4.2); Glucose 175 mg/dL (74-106); Potassium 4.5 mmol/L (3.5-5.1); Protein, Total 6.3 g/dL (6.4-8.2); Sodium Level 139 mmol/L (136-145)
--- NOTE | 2022-07-23 07:39 | PN.HOSP_ITS ---
Reason for Visit Reason for Visit: Diagnoses Leiomyoma of uterus, unspecified (07/16/22) Acute posthemorrhagic anemia (07/16/22) Anemia in other chronic diseases classified elsewhere (07/16/22) Type 1 diabetes mellitus without complications (07/16/22) Type 2 diabetes mellitus without complications (07/16/22) Gangrene, not elsewhere classified (07/16/22) Cellulitis, unspecified (07/16/22) Pressure ulcer of sacral region, unstageable (07/16/22) Pressure ulcer of sacral region, stage 4 (07/16/22) Pressure ulcer of right buttock, stage 4 (07/16/22) Pressure ulcer of unspecified site, unspecified stage (07/16/22) Osteomyelitis, unspecified (07/16/22) Other specified conditions associated with female genital organs and menstrual cycle (07/16/22) Lumbar spina bifida without hydrocephalus (07/16/22) Spina bifida, unspecified (07/16/22) Unspecified urinary incontinence (07/16/22) 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 Objective Data Objective Data Vital Signs: Vital Signs Temp Pulse Resp BP Pulse Ox O2 Del Method 98.4 F 106 H 16 130/70 H 94 Room Air 07/23/22 06:16 07/23/22 06:16 07/23/22 06:16 07/23/22 06:16 07/23/22 06:16 07/23/22 06:16 Oxygen Delivery Method Room Air Weight: 94 lb Body Mass Index (BMI) 21.0 Intake & Output: Intake and Output for Last 24 Hours 07/21/22 07/22/22 07/23/22 23:59 23:59 23:59 Intake Total 965 / 965 1855.54 / 2155.54 520 / 520 Output Total 1050 / 1050 2250 / 2550 1050 / 1050 Balance -85 / -85 -394.46 / -394.46 -530 / -530 Lab / Micro Data Result Diagrams: 07/23/22 06:10 07/23/22 06:10 Labs: Laboratory Results - last 24 hr 07/22/22 06:30: ESR 80 H 07/22/22 09:35: POC Glucose 75 07/22/22 10:40: POC Glucose 162 H 07/22/22 12:54: POC Glucose 196 H 07/22/22 17:50: POC Glucose 236 H 07/22/22 22:27: POC Glucose 277 H 07/23/22 06:10: WBC 10.8, RBC 4.32, Hgb 11.1 L, Hct 36.5 L, MCV 84.5, MCH 25.7 L , MCHC 30.4 L, RDW Std Deviation 62.8 H, RDW Coeff of Maurizio 20.4 H, Plt Count 302, MPV 8.9, Immature Gran % (Auto) 1.200 H, Neut % (Auto) 71.3 H, Lymph % (Auto) 15.9 L, [place] % (Auto) 8.1, Eos % (Auto) 3.1, Baso % (Auto) 0.4, Absolute Neuts (auto) 7.7, Absolute Lymphs (auto) 1.72, Nucleated RBC % 0, Anisocytosis 2+, ESR 80 H 07/23/22 06:10: Sodium 139, Potassium 4.5, Chloride 107, Carbon Dioxide 24.0, Anion Gap 8, BUN 23 H, Creatinine 0.78, Estim Creat Clear Calc 62.60, Est GFR (MDRD) Af Amer 104, Est GFR (MDRD) Non-Af 86, BUN/Creatinine Ratio 29.6 H, Glucose 175 H, Calcium 8.7, Total Bilirubin 0.30, AST 18, ALT 23, Alkaline Phosphatase 107, C-React Prot Ext Range 89.80 H, Total Protein 6.3 L, Albumin 2.1 L, Globulin 4.2, Albumin/Globulin Ratio 0.5 L 07/23/22 06:35: POC Glucose 175 H Micro: Microbiology 07/18/22 13:59 Tissue - Sacral Gram Stain - Final 07/18/22 13:59 Tissue - Sacral Wound Culture - Final Presumptive C albicans Enterococcus faecalis Staphylococcus epidermidis Pseudomonas aeruginosa 07/18/22 13:59 Tissue - Sacral Anaerobic Culture - Final Anaerobic cocci 07/16/22 12:30 Blood Culture (Wb) - Right Forearm Blood Culture - Final No growth in 5 days. 07/16/22 14:26 Blood Culture (Wb) - Anticubital Left Blood Culture - Final No growth in 5 days. 07/18/22 13:53 Bone - Sacral Bone Gram Stain - Final 07/18/22 13:53 Bone - Sacral Bone Wound Culture - Final Pseudomonas aeruginosa 07/18/22 14:24 Bone - Ischial Bone Gram Stain - Final 07/18/22 14:24 Bone - Ischial Bone Wound Culture - Final Pseudomonas aeruginosa Presumptive C albicans 07/18/22 14:24 Bone - Ischial Bone Anaerobic Culture - Final No anaerobic bacteria isolated. 07/18/22 14:29 Tissue - Ischial Pressure Sore Gram Stain - Final 07/18/22 14:29 Tissue - Ischial Pressure Sore Wound Culture - Final Enterococcus faecalis Pseudomonas aeruginosa Presumptive C albicans 07/18/22 14:29 Tissue - Ischial Pressure Sore Anaerobic Culture - Final No anaerobic bacteria isolated. 07/17/22 07:45 Wound - Buttock Gram Stain - Final 07/17/22 07:45 Wound - Buttock Wound Culture - Final Presumptive C albicans Physical Exam Narrative Seen and examined. Discussed with patient's mother near the bedside. Patient has history of spina bifida L5-S1, wheelchair-bound with lower extremities contracture and muscle atrophy. Patient recommended decubitus colostomy by plastic surgeon for reconstructive surgery of decubitus ulcer. Physical exam General: Alert, Oriented x3, Cooperative, BMI 21.1 kg/m?, short stature. HEENT: Atraumatic, PERRLA, EOMI, Normocephalic Oral: Oral mucosa moist. No Gingival or Mucosal Lesions/ Ulcerations Neck: Supple, No JVD, Negative Carotid Bruits Lungs: Air entry diminished in bilateral lung bases. No crepitation/rhonchi Cardiovascular: Regular rate, Regular Rhythm, Normal S1, Normal S2, No murmurs Abdomen: Bowel Sounds Present, Soft, Non Tender, Non-Distended : Ochoa catheter. Chronic urinary incontinence. No renal angle tenderness. No suprapubic tenderness. Extremities: No edema, Capillary Refill Less than 3 Seconds Skin: Status post incision and drainage of ischium and sacrum. Musculoskeletal: Spina bifida L5-S1. Wheelchair-bound. Muscle atrophy of lower extremities with impaired general sensation. Contracture of lower extremities. 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 White count is elevated at 16.7 and she is tachycardic consistent with an infection of note her white count has been elevated since April, she was seeing hematology for this and they feel that is likely reactive but wanted outpatient follow-up -Had been at [facility] 10 to 14 days ago and given antibiotics and improved and then once they were completed wound worsened ? Empirically started was on IV Zosyn. ? Patient had wound debridement on 07/[address] Mitchell. 07/23 on IV antibiotics vancomycin and meropenem changed as per sensitivity. Surgical culture shows MR CoNS, Enterococcus, Pseudomonas, resistant to Zosyn and cefepime, Naty albicans. Fluconazole added. Dr. Mccollum talked to the urologist Dr. Marshall once he said patient can be discharged on Ochoa catheter and outpatient urology follow-up for suprapubic catheterization. MRI abdomen pending to get more information on the patient from [facility]. Discussed with Dr. Mitchell. Tentative plan for surgical diverting colostomy on but patient and her mother not eager for surgery now but may be later as an outpatient. #Pelvic mass -CT 07/16 with 9.1 x 13.1 x 7.3 cm complex solid and cystic mass arising from the pelvis extending towards her abdomen more prominent on the right side and also prominence of the uterus suggesting fibroid uterus. Upon taking over from admitting physician this was reviewed but given read of large heterogenous mass in lower abdomen and pelvis as described with fibroid uterus it seemed that this was described with the fibroid uterus. elvic ultrasound with enlarged heterogenous uterus with multiple leiomyomas and varying stages of degeneration. 07/23: Patient was evaluated by broomcorn press feeder Dr. Young Au. No urgent gynecologic surgery needed. There was a question of a separate mass in the right adnexa that may be due to enlarged right ovary but on the CT there does not appear to be a separate mass and suspect it was an exophytic leiomyoma #DM2: Glucose Accu-Cheks are variable from 75-277. In BMP 175. ? continue with her long-acting insulin ? Accu-Cheks ACHS ? Sliding scale insulin DVT: Lovenox subq Charges/Coding Visit Charges Inpatient E&M: 85870 Subs Hosp L2
[2022-07-23 08:15] VITALS: BP 131/73; PULSE 104; RESP 18; TEMP 36.6; O2SAT 95
[2022-07-23] MEDS: Ferrous Sulfate 325 MG Tablet PO (08:16)
[2022-07-23] MEDS: Glucerna Shake 120 ML LIQUID PO ×4 (08:16→20:31)
[2022-07-23] MEDS: Enoxaparin 40 MG/0.4 ML Syringe SC (08:16)
[2022-07-23] MEDS: Nystatin Powder 15gm Bottle 1 APPLIC TOPICAL ×2 (08:17→20:32)
[2022-07-23] MEDS: Docusate Sodium 100 MG Capsule PO ×2 (08:17→20:26)
--- NOTE | 2022-07-23 08:17 | PN.SURG_ITS ---
Subjective Subjective No acute issues overnight Objective Data Objective Data Vital Signs: Vital Signs Temp Pulse Resp BP Pulse Ox O2 Del Method 98.4 F 106 H 16 130/70 H 94 Room Air 07/23/22 06:16 07/23/22 06:16 07/23/22 06:16 07/23/22 06:16 07/23/22 06:16 07/23/22 06:16 Oxygen Delivery Method Room Air Weight: 94 lb Body Mass Index (BMI) 21.0 Intake & Output: Intake and Output for Last 24 Hours 07/21/22 07/22/22 07/23/22 23:59 23:59 23:59 Intake Total 965 / 965 1855.54 / 2155.54 520 / 520 Output Total 1050 / 1050 2250 / 2550 1050 / 1050 Balance -85 / -85 -394.46 / -394.46 -530 / -530 Lab / Micro Data Result Diagrams: 07/23/22 06:10 07/23/22 06:10 Labs: Laboratory Results - last 24 hr 07/22/22 06:30: ESR 80 H 07/22/22 09:35: POC Glucose 75 07/22/22 10:40: POC Glucose 162 H 07/22/22 12:54: POC Glucose 196 H 07/22/22 17:50: POC Glucose 236 H 07/22/22 22:27: POC Glucose 277 H 07/23/22 06:10: WBC 10.8, RBC 4.32, Hgb 11.1 L, Hct 36.5 L, MCV 84.5, MCH 25.7 L , MCHC 30.4 L, RDW Std Deviation 62.8 H, RDW Coeff of Maurizio 20.4 H, Plt Count 302, MPV 8.9, Immature Gran % (Auto) 1.200 H, Neut % (Auto) 71.3 H, Lymph % (Auto) 15.9 L, [place] % (Auto) 8.1, Eos % (Auto) 3.1, Baso % (Auto) 0.4, Absolute Neuts (auto) 7.7, Absolute Lymphs (auto) 1.72, Nucleated RBC % 0, Anisocytosis 2+, ESR 80 H 07/23/22 06:10: Sodium 139, Potassium 4.5, Chloride 107, Carbon Dioxide 24.0, Anion Gap 8, BUN 23 H, Creatinine 0.78, Estim Creat Clear Calc 62.60, Est GFR (MDRD) Af Amer 104, Est GFR (MDRD) Non-Af 86, BUN/Creatinine Ratio 29.6 H, Glucose 175 H, Calcium 8.7, Total Bilirubin 0.30, AST 18, ALT 23, Alkaline Phosphatase 107, C-React Prot Ext Range 89.80 H, Total Protein 6.3 L, Albumin 2.1 L, Globulin 4.2, Albumin/Globulin Ratio 0.5 L 07/23/22 06:35: POC Glucose 175 H Micro: Microbiology 07/18/22 13:59 Tissue - Sacral Gram Stain - Final 07/18/22 13:59 Tissue - Sacral Wound Culture - Final Presumptive C albicans Enterococcus faecalis Staphylococcus epidermidis Pseudomonas aeruginosa 07/18/22 13:59 Tissue - Sacral Anaerobic Culture - Final Anaerobic cocci 07/16/22 12:30 Blood Culture (Wb) - Right Forearm Blood Culture - Final No growth in 5 days. 07/16/22 14:26 Blood Culture (Wb) - Anticubital Left Blood Culture - Final No growth in 5 days. 07/18/22 13:53 Bone - Sacral Bone Gram Stain - Final 07/18/22 13:53 Bone - Sacral Bone Wound Culture - Final Pseudomonas aeruginosa 07/18/22 14:24 Bone - Ischial Bone Gram Stain - Final 07/18/22 14:24 Bone - Ischial Bone Wound Culture - Final Pseudomonas aeruginosa Presumptive C albicans 07/18/22 14:24 Bone - Ischial Bone Anaerobic Culture - Final No anaerobic bacteria isolated. 07/18/22 14:29 Tissue - Ischial Pressure Sore Gram Stain - Final 07/18/22 14:29 Tissue - Ischial Pressure Sore Wound Culture - Final Enterococcus faecalis Pseudomonas aeruginosa Presumptive C albicans 07/18/22 14:29 Tissue - Ischial Pressure Sore Anaerobic Culture - Final No anaerobic bacteria isolated. 07/17/22 07:45 Wound - Buttock Gram Stain - Final 07/17/22 07:45 Wound - Buttock Wound Culture - Final Presumptive C albicans Assessment & Plan Assessment/Plan (1) Osteomyelitis of pelvic region: (2) Adnexal mass: PLAN: Plan Patient should get her information for her CHANGE CONTROL COORDINATOR shunt today and hopefully the pelvic MRI can be completed for Dr. Gunter. I tentatively have her on for at noon for her diverting colostomy. I will order a bowel prep for Saturday. Roe Gomez MD Pager: [facility] [address] [place] [address] Office:
[2022-07-23 08:42] LABS: Bedside Glucose 135 mg/dL (74-106)
[2022-07-23 10:17] LABS: Vancomycin, Trough Level 26.8 ug/mL (5.0-15.0)
--- NOTE | 2022-07-23 10:32 | PN.ID_ITS ---
Physical Exam Narrative Feeling nervous about possible ostomy. No fever. Const alert and no apparent distress Resp normal air movement and clear to auscultation bilaterally Cardio regular rate and regular rhythm GI soft to palpation, non-tender and non-distended Skin Skin Narrative: no new rash ID ID: Route of nutrition/ use of supplements: [] Nutritional Intake: [] IV Site: [] Ochoa Catheter: [] Assessment & Plan Assessment/Plan (1) Spina bifida: (2) Type 1 diabetes mellitus: (3) Osteomyelitis of pelvic region: PLAN: OR 07/18/[address] Mitchell for I&D of ischium and sacrum. Surg cx with MR- CoNS, enterococcus, PsA (R to zosyn/cefepime), anaerobes, c. albicans. 04/2022 had wound cx with PsA and MRSA. Changed to vanc/bing. Will add fluconazole. Ochoa is in place with plans for urology followup. Not clear if she will need diverting ostomy due to lack of stool contamination of wound. Will follow, d/w Dr. Key
--- NOTE | 2022-07-23 10:35 | NURSING ---
This RN had started vancomycin IV right after vanc trough lab was collected. This RN paused vancomycin until confirmation from pharmacy was recieved to discontinue vancomycin due to high vanco trough level. This RN wasted the rest of the vancomycin that was hanging.
--- NOTE | 2022-07-23 10:37 | PCM.RX.CS ---
Consult Pharmacy has been consulted to manage selected antiobiotic: Vancomycin Type of Consult: Follow-up Prior Doses of Antibiotics Received/Current Regimen: Medications Discontinued Medications Vancomycin HCl 750 mg/ Sodium (Chloride) 265 mls @ 250 mls/hr IV Q12H PHILLIP Last Admin: 07/23/22 09:57 Dose: 0 mls/hr Labs: Sodium 139 mmol/L (136-145) 07/23/22 06:10 Potassium 4.5 mmol/L (3.5-5.1) 07/23/22 06:10 Chloride 107 mmol/L (98-107) 07/23/22 06:10 Carbon Dioxide 24.0 mmol/L (21.0-32.0) 07/23/22 06:10 Anion Gap 8 (5-15) 07/23/22 06:10 BUN 23 mg/dL (7-18) H 07/23/22 06:10 Creatinine 0.78 mg/dL (0.55-1.02) 07/23/22 06:10 Est GFR (MDRD) Af Amer 104 mL/min (>60) 07/23/22 06:10 Est GFR (MDRD) Non-Af 86 mL/min (>60) 07/23/22 06:10 BUN/Creatinine Ratio 29.6 RATIO (10-20) H 07/23/22 06:10 Glucose 175 mg/dL (74-106) H 07/23/22 06:10 Vancomycin Trough 26.8 ug/mL (5.0-15.0) H 07/23/22 09:37 Microbiology: Microbiology 07/18/22 13:53 Bone - Sacral Bone Gram Stain - Final 07/18/22 13:53 Bone - Sacral Bone Wound Culture - Final Pseudomonas aeruginosa 07/18/22 13:59 Tissue - Sacral Gram Stain - Final 07/18/22 13:59 Tissue - Sacral Wound Culture - Final Presumptive C albicans Enterococcus faecalis Staphylococcus epidermidis Pseudomonas aeruginosa 07/18/22 13:59 Tissue - Sacral Anaerobic Culture - Final Anaerobic cocci 07/16/22 12:30 Blood Culture (Wb) - Right Forearm Blood Culture - Final No growth in 5 days. 07/16/22 14:26 Blood Culture (Wb) - Anticubital Left Blood Culture - Final No growth in 5 days. 07/18/22 14:24 Bone - Ischial Bone Gram Stain - Final 07/18/22 14:24 Bone - Ischial Bone Wound Culture - Final Pseudomonas aeruginosa Presumptive C albicans 07/18/22 14:24 Bone - Ischial Bone Anaerobic Culture - Final No anaerobic bacteria isolated. 07/18/22 14:29 Tissue - Ischial Pressure Sore Gram Stain - Final 07/18/22 14:29 Tissue - Ischial Pressure Sore Wound Culture - Final Enterococcus faecalis Pseudomonas aeruginosa Presumptive C albicans 07/18/22 14:29 Tissue - Ischial Pressure Sore Anaerobic Culture - Final No anaerobic bacteria isolated. 07/17/22 07:45 Wound - Buttock Gram Stain - Final 07/17/22 07:45 Wound - Buttock Wound Culture - Final Presumptive C albicans Goal Trough: 15-20 mcg/mL Pharmacy Plan for Drug Dosing: Trough above goal, hold for now and check random level in the morning. Pharmacy Service will continue to monitor and adjust dosing as required. Follow-Up Labs: Trough Vancomycin - 07/24 @ 0600 Random
[2022-07-23 12:35] LABS: Bedside Glucose 139 mg/dL (74-106)
[2022-07-23] MEDS: Juven (unflavored) Packet 1 PACKET PO (13:57)
[2022-07-23 14:13] VITALS: BP 135/73; PULSE 105; RESP 18; TEMP 36.8; O2SAT 95
--- NOTE | 2022-07-23 15:29 | WOUNDNOTE ---
wound photo: sacrum
--- NOTE | 2022-07-23 15:30 | WOUNDNOTE ---
wound photo: right ischium
--- NOTE | 2022-07-23 15:44 | CASEMGMT ---
Social Work SW notified by RN FRANCIE that pt mother has questions for SW. SW in to pt room. Pt mother, Scarlet, asked if Abelino Valiente will complete a bowel regimen for pt [facility]. SEKOU stated would check on this. Scarlet shared knowing this info would assist pt with making a decision on allowing an ostomy to be placed or not. SEKOU sent message to Abelino valiente to check on this information. Will follow up tomorrow. MICHELLE Mann
--- NOTE | 2022-07-23 15:59 | CASEMGMT ---
Social Work SW discussed pt case with MD Key this am during rounds. stated discharge plan is on hold and SW should not continue referral to [facility] at this time. MD Key to update SW on plans moving forward once all MD's on the case have discussed. MICHELLE Mann
[2022-07-23 17:21] LABS: Bedside Glucose 178 mg/dL (74-106)
[2022-07-23 19:58] VITALS: BP 141/77; PULSE 108; RESP 16; TEMP 36.9; O2SAT 94
[2022-07-23] MEDS: Insulin Glargine-YFGN 100 UNIT/ML Pen 13 UNIT SC (20:24)
[2022-07-23] MEDS: FLUoxetine 20 MG Capsule PO (20:32)
[2022-07-23 22:00] LABS: Bedside Glucose 161 mg/dL (74-106)
--- NOTE | 2022-07-23 22:24 | PCM.PN.BLA ---
Progress Note await pelvic MRI to be done if possible prior to surgery, will be available during the surgery in case of adnexal mass removal needed.
[2022-07-24 06:00] VITALS: BP 122/64; PULSE 91; RESP 14; TEMP 36.7; O2SAT 99
[2022-07-24] MEDS: Insulin Lispro 100 UNIT/ML INSULN.PEN SC ×4 (06:08→22:54)
[2022-07-24 06:15] LABS: Absolute Neutrophil Count 8.1 X10^3/uL (2.0-7.7); Basophil# 0.05 X10^3/uL; Basophil% 0.4 % (0-1); Eosinophil# 0.35 X10^3/uL; Eosinophils% 3.1 % (0-5); Hematocrit 37.4 % (37-47); Hemoglobin 11.4 g/dL (12.0-15.0); Lymphocyte % 15.3 % (19-41); Mean Corp Hgb Conc 30.5 g/dL (32-36); Mean Corpuscular Volume 85.4 fL (81-99); Mean Platelet Vol. 8.9 fl (6.2-12.0); Monocyte# 0.86 X10^3/uL; Monocyte% 7.7 % (0-10); NRBC Flagged by Analyzer 0 % (0-5); Neutrophil # 8.06 X10^3/uL (2.7-7.7); Neutrophil % 72.4 % (47-70); POSITIVE MORPHOLOGY YES; Platelet Count 333 K/mm3 (150-450); RBC Distribution Width CV 20.3 % (11.6-14.6); Red Blood Count 4.38 M/mm3 (4.2-5.4); White Blood Count 11.1 K/mm3 (4.4-11.0)
[2022-07-24 06:36] LABS: Bedside Glucose 152 mg/dL (74-106)
[2022-07-24 07:03] LABS: ALB/GLOB Ratio 0.5 RATIO (0.9-2.4); AST(SGOT) 15 U/L (15-37); Alanine Aminotransfer ALT/SGPT 19 U/L (13-56); Albumin, Serum 2.1 g/dL (3.2-5.0); Alkaline Phosphatase 112 U/L (45-117); Anion Gap 5 (5-15); BUN 27 mg/dL (7-18); BUN/Creat Ratio 33.4 RATIO (10-20); Calcium,Total 8.8 mg/dL (8.5-10.1); Chloride 107 mmol/L (98-107); Creatinine, Serum 0.81 mg/dL (0.55-1.02); EST Glomerular Filtration Rate 82 mL/min (>60); Est Glom Filt Rate - Afr Amer 99 mL/min (>60); Estimated Creatinine Clearance 60.28 ml/min; Globulin 4.5 g/dL (2.2-4.2); Glucose 141 mg/dL (74-106); Potassium 4.5 mmol/L (3.5-5.1); Protein, Total 6.6 g/dL (6.4-8.2); Sodium Level 136 mmol/L (136-145)
[2022-07-24 07:13] LABS: Differential Indicated SCAN CRITERIA MET
--- NOTE | 2022-07-24 07:14 | PN.SURG_ITS ---
Subjective Subjective No acute events overnight Objective Data Objective Data Vital Signs: Vital Signs Temp Pulse Resp BP Pulse Ox O2 Del Method 98.0 F 91 14 122/64 H 99 Room Air 07/24/22 06:00 07/24/22 06:00 07/24/22 06:00 07/24/22 06:00 07/24/22 06:00 07/24/22 06:00 Oxygen Delivery Method Room Air Weight: 94 lb Body Mass Index (BMI) 21.0 Intake & Output: Intake and Output for Last 24 Hours 07/22/22 07/23/22 07/24/22 23:59 23:59 23:59 Intake Total 1855.54 / 2155.54 1008.58 / 1128.58 240 / 240 Output Total 2250 / 2550 1950 / 2500 550 / 550 Balance -394.46 / -394.46 -941.42 / -1371.42 -310 / -310 Lab / Micro Data Result Diagrams: 07/24/22 06:00 07/24/22 06:00 Labs: Laboratory Results - last 24 hr 07/23/22 06:10: Polychromasia Not Reportable 07/23/22 08:05: POC Glucose 135 H 07/23/22 09:37: Vancomycin Trough 26.8 H 07/23/22 12:13: POC Glucose 139 H 07/23/22 16:21: POC Glucose 178 H 07/23/22 20:08: POC Glucose 161 H 07/24/22 06:00: WBC 11.1 H, RBC 4.38, Hgb 11.4 L, Hct 37.4, MCV 85.4, MCH 26.0 L , MCHC 30.5 L, RDW Std Deviation 63.0 H, RDW Coeff of Maurizio 20.3 H, Plt Count 333, MPV 8.9, Immature Gran % (Auto) 1.100 H, Neut % (Auto) 72.4 H, Lymph % (Auto) 15.3 L, [place] % (Auto) 7.7, Eos % (Auto) 3.1, Baso % (Auto) 0.4, Absolute Neuts (auto) 8.1 H, Absolute Lymphs (auto) 1.70, Nucleated RBC % 0 07/24/22 06:00: Sodium 136, Potassium 4.5, Chloride 107, Carbon Dioxide 24.0, Anion Gap 5, BUN 27 H, Creatinine 0.81, Estim Creat Clear Calc 60.28, Est GFR (MDRD) Af Amer 99, Est GFR (MDRD) Non-Af 82, BUN/Creatinine Ratio 33.4 H, Glucose 141 H, Calcium 8.8, Total Bilirubin 0.30, AST 15, ALT 19, Alkaline Phosphatase 112, Total Protein 6.6, Albumin 2.1 L, Globulin 4.5 H, Albumin/Globulin Ratio 0.5 L 07/24/22 06:00: Random Vancomycin 11.0 07/24/22 06:06: POC Glucose 152 H Micro: Microbiology 07/18/22 13:53 Bone - Sacral Bone Gram Stain - Final 07/18/22 13:53 Bone - Sacral Bone Wound Culture - Final Pseudomonas aeruginosa 07/18/22 13:53 Bone - Sacral Bone Anaerobic Culture - Preliminary No growth in 48 hours. 07/18/22 13:59 Tissue - Sacral Gram Stain - Final 07/18/22 13:59 Tissue - Sacral Wound Culture - Final Presumptive C albicans Enterococcus faecalis Staphylococcus epidermidis Pseudomonas aeruginosa 07/18/22 13:59 Tissue - Sacral Anaerobic Culture - Final Anaerobic cocci 07/16/22 12:30 Blood Culture (Wb) - Right Forearm Blood Culture - Final No growth in 5 days. 07/16/22 14:26 Blood Culture (Wb) - Anticubital Left Blood Culture - Final No growth in 5 days. 07/18/22 14:24 Bone - Ischial Bone Gram Stain - Final 07/18/22 14:24 Bone - Ischial Bone Wound Culture - Final Pseudomonas aeruginosa Presumptive C albicans 07/18/22 14:24 Bone - Ischial Bone Anaerobic Culture - Final No anaerobic bacteria isolated. 07/18/22 14:29 Tissue - Ischial Pressure Sore Gram Stain - Final 07/18/22 14:29 Tissue - Ischial Pressure Sore Wound Culture - Final Enterococcus faecalis Pseudomonas aeruginosa Presumptive C albicans 07/18/22 14:29 Tissue - Ischial Pressure Sore Anaerobic Culture - Final No anaerobic bacteria isolated. 07/17/22 07:45 Wound - Buttock Gram Stain - Final 07/17/22 07:45 Wound - Buttock Wound Culture - Final Presumptive C albicans Physical Exam Const oriented x3 and no apparent distress Resp normal respiratory effort Cardio regular rate and regular rhythm GI normal to inspection, nondistended, normoactive bowel sounds Assessment & Plan Assessment/Plan (1) Osteomyelitis of pelvic region: PLAN: It seems as though the patient is reconsidering having the diverting colostomy. She is now feeling that she does not need diversion to control her stool. I discussed this with her further and I do not believe the Dr. Mitchell would perform a flap without diversion. I also discussed that it is her decision and she can refuse the surgery if she would like. I would however like to have a decision by tomorrow so we can start bowel prep tomorrow for surgery if she desires to proceed. Roe Gomez MD Pager: [facility] [address] [place] [address], [address] [place] [address] Office:
[2022-07-24 07:51] LABS: Anisocytosis 1+
--- NOTE | 2022-07-24 08:49 | WOUNDNOTE ---
Pt has been very torn about the decision on bowel diversion. pt states that if WVM can assist with her bowel regimen, she plans to hold off on the diversion. Pt has not been incontinent of stool. when the wound VAC leaks, it has been d/t patient scooting along the sheets and pulling the drape. Dr Mitchell in to talk with patient at this time.
[2022-07-24] MEDS: Fluconazole 100 MG Tablet 200 MG PO (09:09)
[2022-07-24] MEDS: Enoxaparin 40 MG/0.4 ML Syringe SC (09:09)
[2022-07-24] MEDS: Ferrous Sulfate 325 MG Tablet PO (09:09)
[2022-07-24] MEDS: Glucerna Shake 120 ML LIQUID PO ×3 (09:10→18:24)
[2022-07-24] MEDS: Nystatin Powder 15gm Bottle 1 APPLIC TOPICAL ×2 (09:10→22:55)
--- NOTE | 2022-07-24 09:40 | NURSING ---
Was doing assessment tis am and pt said she felt dizzy. Wanted me to check her blood sugar it was 36 gave her juice, snack and peanut butter and 15 min later blood sugar was 95. Lab in to confirm blood sugar .
[2022-07-24] MEDS: Vancomycin IV 1,000 MG/200 ML BAG 200 MG IV (09:58)
--- NOTE | 2022-07-24 10:07 | PCM.RX.CS ---
Consult Pharmacy has been consulted to manage selected antiobiotic: Vancomycin Type of Consult: Follow-up Suspected Infection: Osteomyelitis Prior Doses of Antibiotics Received/Current Regimen: the patient had been on vanc 750mg IV q12h until that was held yesterday due to a high trough Labs: Sodium 136 mmol/L (136-145) 07/24/22 06:00 Potassium 4.5 mmol/L (3.5-5.1) 07/24/22 06:00 Chloride 107 mmol/L (98-107) 07/24/22 06:00 Carbon Dioxide 24.0 mmol/L (21.0-32.0) 07/24/22 06:00 Anion Gap 5 (5-15) 07/24/22 06:00 BUN 27 mg/dL (7-18) H 07/24/22 06:00 Creatinine 0.81 mg/dL (0.55-1.02) 07/24/22 06:00 Est GFR (MDRD) Af Amer 99 mL/min (>60) 07/24/22 06:00 Est GFR (MDRD) Non-Af 82 mL/min (>60) 07/24/22 06:00 BUN/Creatinine Ratio 33.4 RATIO (10-20) H 07/24/22 06:00 Vancomycin Trough 26.8 ug/mL (5.0-15.0) H 07/23/22 09:37 Random Vancomycin 11.0 ug/mL (0.0-15.0) 07/24/22 06:00 Microbiology: Microbiology 07/18/22 13:53 Bone - Sacral Bone Gram Stain - Final 07/18/22 13:53 Bone - Sacral Bone Wound Culture - Final Pseudomonas aeruginosa 07/18/22 13:53 Bone - Sacral Bone Anaerobic Culture - Preliminary No growth in 48 hours. 07/18/22 13:59 Tissue - Sacral Gram Stain - Final 07/18/22 13:59 Tissue - Sacral Wound Culture - Final Presumptive C albicans Enterococcus faecalis Staphylococcus epidermidis Pseudomonas aeruginosa 07/18/22 13:59 Tissue - Sacral Anaerobic Culture - Final Anaerobic cocci 07/16/22 12:30 Blood Culture (Wb) - Right Forearm Blood Culture - Final No growth in 5 days. 07/16/22 14:26 Blood Culture (Wb) - Anticubital Left Blood Culture - Final No growth in 5 days. 07/18/22 14:24 Bone - Ischial Bone Gram Stain - Final 07/18/22 14:24 Bone - Ischial Bone Wound Culture - Final Pseudomonas aeruginosa Presumptive C albicans 07/18/22 14:24 Bone - Ischial Bone Anaerobic Culture - Final No anaerobic bacteria isolated. 07/18/22 14:29 Tissue - Ischial Pressure Sore Gram Stain - Final 07/18/22 14:29 Tissue - Ischial Pressure Sore Wound Culture - Final Enterococcus faecalis Pseudomonas aeruginosa Presumptive C albicans 07/18/22 14:29 Tissue - Ischial Pressure Sore Anaerobic Culture - Final No anaerobic bacteria isolated. 07/17/22 07:45 Wound - Buttock Gram Stain - Final 07/17/22 07:45 Wound - Buttock Wound Culture - Final Presumptive C albicans Weight used for dosin.6 kg Estimated Creatinine Clearance: 56ml/min Goal Trough: 15-20 mcg/mL Pharmacy Plan for Drug Dosing: The vanc random level drawn at 06:00 today was 11.0 (drawn approx 20 hours after the last dose of 750mg). This is back below 20 so will resume dosing at a new dose of 1000mg IV q24h. Will check a trough before the 3rd dose. Pharmacy Service will continue to monitor and adjust dosing as required. Follow-Up Labs: Trough Vancomycin Labs to be done on [date and time ordered]: 07/26/22 09:30
[2022-07-24 10:11] LABS: Bedside Glucose 36 mg/dL (74-106)
[2022-07-24 10:11] LABS: Bedside Glucose 95 mg/dL (74-106)
[2022-07-24 10:14] LABS: Glucose 105 mg/dL (74-106)
--- NOTE | 2022-07-24 10:34 | CASEMGMT ---
Social Work SW received message from [email or web address] confirming that they would work with pt on bowel regimen. SW called pt mother to update- Left a VM with contact number. SW also received pc from pt case resolution specialist from [facility]. CM was asking for an update. SW informed not sure of plan at this time due to doctors on pt case continuing to collaborate on what steps will be needed moving forward. CM stated would call back at a later time or speak with pt mother for more updates as they come in. SW encouraged CM to call with any questions. MICHELLE Mann
--- NOTE | 2022-07-24 10:36 | PN.ID_ITS ---
Physical Exam Narrative Feeling ok. Unable to get picc in the past. No fever. Const alert and no apparent distress General Appearance: cooperative Resp normal air movement and clear to auscultation bilaterally Cardio regular rate and regular rhythm GI soft to palpation, non-tender and non-distended Skin Skin Narrative: no new rash ID ID: Route of nutrition/ use of supplements: [] Nutritional Intake: [] IV Site: [] Ochoa Catheter: [] Assessment & Plan Assessment/Plan (1) Spina bifida: (2) Type 1 diabetes mellitus: (3) Osteomyelitis of pelvic region: PLAN: OR 07/18/[address] Mitchell for I&D of ischium and sacrum. Surg cx with MR- CoNS, enterococcus, PsA (R to zosyn/cefepime), anaerobes, c. albicans. 04/2022 had wound cx with PsA and MRSA. Changed to vanc/bing/fluconazole. Ochoa is in place with plans for urology followup. Per pt, she discussed with Dr. Mitchell this AM, and decision was made not to pursue diverting ostomy at this time due to lack of stool contamination of wound. Will need tunneled central line placed; plan is for 6 weeks iv abx. Stop date 08/29/22. Will follow
--- NOTE | 2022-07-24 11:02 | PN.SURG_ITS ---
Subjective Subjective Postop #6 Patient is resting comfortably. VAC in place. Objective Data Objective Data Vital Signs: Vital Signs Temp Pulse Resp BP Pulse Ox O2 Del Method 98.0 F 91 14 122/64 H 99 Room Air 07/24/22 06:00 07/24/22 06:00 07/24/22 06:00 07/24/22 06:00 07/24/22 06:00 07/24/22 09:35 Oxygen Delivery Method Room Air Weight: 94 lb Body Mass Index (BMI) 21.0 Intake & Output: Intake and Output for Last 24 Hours 07/22/22 07/23/22 07/24/22 23:59 23:59 23:59 Intake Total 1855.54 / 2155.54 1008.58 / 1128.58 479 / 479 Output Total 2250 / 2550 1950 / 2500 550 / 550 Balance -394.46 / -394.46 -941.42 / -1371.42 -71 / -71 Prealbumin was 8.3.? Encourage nutritional supplementation with protein to help the healing process. Lab / Micro Data Attestation: I reviewed the patient's lab results. Lab results narrative: Hgb was 7.9 after surgery. She received PRBCs. Today Hgb is 11.4. She is on Iron supplementation. Result Diagrams: 07/24/22 06:00 07/24/22 09:42 Labs: Laboratory Results - last 24 hr 07/23/22 06:10: Polychromasia Not Reportable 07/23/22 12:13: POC Glucose 139 H 07/23/22 16:21: POC Glucose 178 H 07/23/22 20:08: POC Glucose 161 H 07/24/22 06:00: WBC 11.1 H, RBC 4.38, Hgb 11.4 L, Hct 37.4, MCV 85.4, MCH 26.0 L , MCHC 30.5 L, RDW Std Deviation 63.0 H, RDW Coeff of Maurizio 20.3 H, Plt Count 333, MPV 8.9, Immature Gran % (Auto) 1.100 H, Neut % (Auto) 72.4 H, Lymph % (Auto) 15.3 L, [place] % (Auto) 7.7, Eos % (Auto) 3.1, Baso % (Auto) 0.4, Absolute Neuts (auto) 8.1 H, Absolute Lymphs (auto) 1.70, Nucleated RBC % 0, Anisocytosis 1+ 07/24/22 06:00: Sodium 136, Potassium 4.5, Chloride 107, Carbon Dioxide 24.0, Anion Gap 5, BUN 27 H, Creatinine 0.81, Estim Creat Clear Calc 60.28, Est GFR (MDRD) Af Amer 99, Est GFR (MDRD) Non-Af 82, BUN/Creatinine Ratio 33.4 H, Glucose 141 H, Calcium 8.8, Total Bilirubin 0.30, AST 15, ALT 19, Alkaline Phosphatase 112, Total Protein 6.6, Albumin 2.1 L, Globulin 4.5 H, Albumin/Globulin Ratio 0.5 L 07/24/22 06:00: Random Vancomycin 11.0 07/24/22 06:06: POC Glucose 152 H 07/24/22 09:20: POC Glucose 36 L* 07/24/22 09:39: POC Glucose 95 07/24/22 09:42: Glucose 105 Micro: Microbiology 07/18/22 13:53 Bone - Sacral Bone Gram Stain - Final 07/18/22 13:53 Bone - Sacral Bone Wound Culture - Final Pseudomonas aeruginosa 07/18/22 13:53 Bone - Sacral Bone Anaerobic Culture - Preliminary No growth in 48 hours. 07/18/22 13:59 Tissue - Sacral Gram Stain - Final 07/18/22 13:59 Tissue - Sacral Wound Culture - Final Presumptive C albicans Enterococcus faecalis Staphylococcus epidermidis Pseudomonas aeruginosa 07/18/22 13:59 Tissue - Sacral Anaerobic Culture - Final Anaerobic cocci 07/16/22 12:30 Blood Culture (Wb) - Right Forearm Blood Culture - Final No growth in 5 days. 07/16/22 14:26 Blood Culture (Wb) - Anticubital Left Blood Culture - Final No growth in 5 days. 07/18/22 14:24 Bone - Ischial Bone Gram Stain - Final 07/18/22 14:24 Bone - Ischial Bone Wound Culture - Final Pseudomonas aeruginosa Presumptive C albicans 07/18/22 14:24 Bone - Ischial Bone Anaerobic Culture - Final No anaerobic bacteria isolated. 07/18/22 14:29 Tissue - Ischial Pressure Sore Gram Stain - Final 07/18/22 14:29 Tissue - Ischial Pressure Sore Wound Culture - Final Enterococcus faecalis Pseudomonas aeruginosa Presumptive C albicans 07/18/22 14:29 Tissue - Ischial Pressure Sore Anaerobic Culture - Final No anaerobic bacteria isolated. 07/17/22 07:45 Wound - Buttock Gram Stain - Final 07/17/22 07:45 Wound - Buttock Wound Culture - Final Presumptive C albicans Pathology - Negative for osteomyelitis in both the sacral bone and right ischial bone. Physical Exam Narrative General - Alert and Oriented HEENT - PERRL. EOMI. Neck - Supple and nontender. Abdomen - Soft and nondistended. Lower back and buttock areas - Pressure sore wounds (sacral and right ischial) show some granulation tissue and some increased exudate. Over the weekend there were VAC leaks which can cause the increased exudate. There is also periwound redness with dermatitis related to the VAC leaks which increases moisture in contact with her skin. Neuro - CN II-XII grossly intact. Psych - Normal mood and affect. Assessment & Plan Assessment/Plan (1) Right ischial pressure sore, stage 4: (2) Osteomyelitis of right side of pelvis: (3) Pressure ulcer of sacral region, stage 4: (4) Skin necrosis: (5) Pseudomonas aeruginosa infection: (6) Methicillin resistant Staphylococcus epidermidis infection: (7) Urinary incontinence: (8) Diabetes mellitus treated with insulin: (9) Spina bifida: (10) Acute postoperative anemia due to expected blood loss: PLAN: Plan There have been some VAC leaks over last few days probably from sliding in bed. There is periwound redness and dermatitis. Will monitor. If continued VAC leaks or if the redness worsens, then will stop the VAC with a VAC holiday and begin Dakin's dressing changes daily. Hgb was 7.9 after surgery. She received PRBCs. Today Hgb is 11.4. She is on Iron supplementation. Operative cultures show multiple organisms (Enterococcus faecalis, Pseudomonas aeroginosa, MRSE, Anaerobic cocci, and Naty albicans). She is currently on Vancomycin, Meropenem, and Fluconazole. Pathology is negative for osteomyelitis in the sacral bone and right ischial bone. Prealbumin was 8.3.? Encourage nutritional supplementation with protein to help the healing process.
[2022-07-24 11:30] LABS: Bedside Glucose 229 mg/dL (74-106)
[2022-07-24 12:00] VITALS: BP 115/57; PULSE 97; RESP 18; TEMP 36.6; O2SAT 97
--- NOTE | 2022-07-24 15:08 | PN_ITS ---
Progress Note The patient has decided against diversion at this time. Patient is also having issues with her peripheral IV and likely needs home IV access for antibiotics. Patient is having PICC line attempted. She reports she had difficulty having a PICC placed in the past. If PICC is unable to be placed I will add her on for at the same time for port placement. Roe Gomez MD Pager: [facility] [address] [place] [address], [address] [place] [phone] Office:
[2022-07-24 15:32] VITALS: BP 130/76; PULSE 104; RESP 18; TEMP 36.6; O2SAT 97
--- NOTE | 2022-07-24 15:43 | PCM.PN.HOSP ---
Reason for Visit Reason for Visit: Diagnoses Leiomyoma of uterus, unspecified (07/16/22) Acute posthemorrhagic anemia (07/16/22) Anemia in other chronic diseases classified elsewhere (07/16/22) Type 1 diabetes mellitus without complications (07/16/22) Type 2 diabetes mellitus without complications (07/16/22) Gangrene, not elsewhere classified (07/16/22) Cellulitis, unspecified (07/16/22) Pressure ulcer of sacral region, unstageable (07/16/22) Pressure ulcer of sacral region, stage 4 (07/16/22) Pressure ulcer of right buttock, stage 4 (07/16/22) Pressure ulcer of unspecified site, unspecified stage (07/16/22) Osteomyelitis, unspecified (07/16/22) Other specified conditions associated with female genital organs and menstrual cycle (07/16/22) Lumbar spina bifida without hydrocephalus (07/16/22) Spina bifida, unspecified (07/16/22) Unspecified urinary incontinence (07/16/22) [employer] (current) use of insulin (07/16/22) Personal history of Methicillin resistant Staphylococcus aureus infection (07/16/22) Subjective Subjective Follow-up for complicated sacral and gluteal decubitus with polymicrobial jayna infection Objective Data Objective Data Vital Signs: Vital Signs Temp Pulse Resp BP Pulse Ox O2 Del Method 98 F 104 H 18 130/76 H 97 Room Air 07/24/22 15:32 07/24/22 15:32 07/24/22 15:32 07/24/22 15:32 07/24/22 15:32 07/24/22 15:32 Oxygen Delivery Method Room Air Weight: 94 lb Body Mass Index (BMI) 21.0 Intake & Output: Intake and Output for Last 24 Hours 07/22/22 07/23/22 07/24/22 23:59 23:59 23:59 Intake Total 1855.54 / 2155.54 1008.58 / 1128.58 779 / 779 Output Total 2250 / 2550 1950 / 2500 1300 / 1300 Balance -394.46 / -394.46 -941.42 / -1371.42 -521 / -521 Lab / Micro Data Result Diagrams: 07/24/22 06:00 07/24/22 09:42 Labs: Laboratory Results - last 24 hr 07/23/22 16:21: POC Glucose 178 H 07/23/22 20:08: POC Glucose 161 H 07/24/22 06:00: WBC 11.1 H, RBC 4.38, Hgb 11.4 L, Hct 37.4, MCV 85.4, MCH 26.0 L, MCHC 30.5 L, RDW Std Deviation 63.0 H, RDW Coeff of Maurizio 20.3 H, Plt Count 333, MPV 8.9, Immature Gran % (Auto) 1.100 H, Neut % (Auto) 72.4 H, Lymph % (Auto) 15.3 L, Mcleod % (Auto) 7.7, Eos % (Auto) 3.1, Baso % (Auto) 0.4, Absolute Neuts (auto) 8.1 H, Absolute Lymphs (auto) 1.70, Nucleated RBC % 0, Anisocytosis 1+ 07/24/22 06:00: Sodium 136, Potassium 4.5, Chloride 107, Carbon Dioxide 24.0, Anion Gap 5, BUN 27 H, Creatinine 0.81, Estim Creat Clear Calc 60.28, Est GFR (MDRD) Af Amer 99, Est GFR (MDRD) Non-Af 82, BUN/Creatinine Ratio 33.4 H, Glucose 141 H, Calcium 8.8, Total Bilirubin 0.30, AST 15, ALT 19, Alkaline Phosphatase 112, Total Protein 6.6, Albumin 2.1 L, Globulin 4.5 H, Albumin/Globulin Ratio 0.5 L 07/24/22 06:00: Random Vancomycin 11.0 07/24/22 06:06: POC Glucose 152 H 07/24/22 09:20: POC Glucose 36 L* 07/24/22 09:39: POC Glucose 95 07/24/22 09:42: Glucose 105 07/24/22 11:08: POC Glucose 229 H Micro: Microbiology 07/18/22 13:53 Bone - Sacral Bone Gram Stain - Final 07/18/22 13:53 Bone - Sacral Bone Wound Culture - Final Pseudomonas aeruginosa 07/18/22 13:53 Bone - Sacral Bone Anaerobic Culture - Preliminary No growth in 48 hours. 07/18/22 13:59 Tissue - Sacral Gram Stain - Final 07/18/22 13:59 Tissue - Sacral Wound Culture - Final Presumptive C albicans Enterococcus faecalis Staphylococcus epidermidis Pseudomonas aeruginosa 07/18/22 13:59 Tissue - Sacral Anaerobic Culture - Final Anaerobic cocci 07/16/22 12:30 Blood Culture (Wb) - Right Forearm Blood Culture - Final No growth in 5 days. 07/16/22 14:26 Blood Culture (Wb) - Anticubital Left Blood Culture - Final No growth in 5 days. 07/18/22 14:24 Bone - Ischial Bone Gram Stain - Final 07/18/22 14:24 Bone - Ischial Bone Wound Culture - Final Pseudomonas aeruginosa Presumptive C albicans 07/18/22 14:24 Bone - Ischial Bone Anaerobic Culture - Final No anaerobic bacteria isolated. 07/18/22 14:29 Tissue - Ischial Pressure Sore Gram Stain - Final 07/18/22 14:29 Tissue - Ischial Pressure Sore Wound Culture - Final Enterococcus faecalis Pseudomonas aeruginosa Presumptive C albicans 07/18/22 14:29 Tissue - Ischial Pressure Sore Anaerobic Culture - Final No anaerobic bacteria isolated. 07/17/22 07:45 Wound - Buttock Gram Stain - Final 07/17/22 07:45 Wound - Buttock Wound Culture - Final Presumptive C albicans Physical Exam Narrative Seen and examined. Discussed with patient's mother near the bedside. Patient has history of spina bifida L5-S1, wheelchair-bound with lower extremities contracture and muscle atrophy. Patient and her mom said that with the digital pressure on the gluteal/perirectal region she can move bowel. Patient family does not want diverting colostomy now but want to wait until nutrition is built up. Plastic surgeon recommended diverse and colostomy before reconstructive surgery of decubitus ulcer. Physical exam General: Alert, Oriented x3, Cooperative, BMI 21.1 kg/m?, short stature. HEENT: Atraumatic, PERRLA, EOMI, Normocephalic Oral: Oral mucosa moist. No Gingival or Mucosal Lesions/ Ulcerations Neck: Supple, No JVD, Negative Carotid Bruits Lungs: Air entry diminished in bilateral lung bases. No crepitation/rhonchi Cardiovascular: Regular rate, Regular Rhythm, Normal S1, Normal S2, No murmurs Abdomen: Bowel Sounds Present, Soft, Non Tender, Non-Distended : Ochoa catheter. Chronic urinary incontinence. No renal angle tenderness. No suprapubic tenderness. Extremities: No edema, Capillary Refill Less than 3 Seconds Skin: Status post incision and drainage of ischium and sacrum. Musculoskeletal: Spina bifida L5-S1. Wheelchair-bound. Muscle atrophy of lower extremities with impaired general sensation. Contracture of lower extremities. Neurological: Cranial nerves II-XII grossly intact, chronic muscle atrophy of lower extremities and contractures, urinary bladder and general sensation impairment Psych/Mental Status: Flat affect Assessment & Plan Assessment/Plan (1) Wound cellulitis: (2) Decubitus ulcer: PLAN: Plan #Recurrent right ischial pressure sore, Stage IV/Osteomyelitis right ischial bone of pelvis/Sacral pressure sore with nonviable skin necrosis, Unstageable/spina bifida L5-S1 lesion wheelchair-bound, chronic urinary incontinence and self catheterization ? White count is elevated at 16.7 and she is tachycardic consistent with an infection of note her white count has been elevated since April, she was seeing hematology for this and they feel that is likely reactive but wanted outpatient follow-up -Had been at [facility] 10 to 14 days ago and given antibiotics and improved and then once they were completed wound worsened ? Empirically started was on IV Zosyn. ? Patient had wound debridement on 07/[address] Mitchell. 07/23 on IV antibiotics vancomycin and meropenem changed as per sensitivity. Surgical culture shows MR CoNS, Enterococcus, Pseudomonas, resistant to Zosyn and cefepime, Naty albicans. Fluconazole added. Dr. Mccollum talked to the urologist Dr. Marshall once he said patient can be discharged on Ochoa catheter and outpatient urology follow-up for suprapubic catheterization. MRI abdomen pending to get more information on the patient from [facility]. Discussed with Dr. Mitchell. Tentative plan for surgical diverting colostomy on but patient and her mother not eager for surgery now but may be later as an outpatient. 07/24: Peripheral line not working. Several years ago patient had technical failure of PICC line as it could not past through. She wants to try first PICC line before going for tunneled central line. Discussed with ID, surgeon, patient and her mother. Surgeon could not do before for tunnel dialysis catheter but agreeable for trying PICC line first. Single-lumen PICC line ordered. #Pelvic mass -CT 07/16 with 9.1 x 13.1 x 7.3 cm complex solid and cystic mass arising from the pelvis extending towards her abdomen more prominent on the right side and also prominence of the uterus suggesting fibroid uterus. Upon taking over from admitting physician this was reviewed but given read of large heterogenous mass in lower abdomen and pelvis as described with fibroid uterus it seemed that this was described with the fibroid uterus. elvic ultrasound with enlarged heterogenous uterus with multiple leiomyomas and varying stages of degeneration. 07/23: Patient was evaluated by class [employer] Dr. Young Au. No urgent gynecologic surgery needed. There was a question of a separate mass in the right adnexa that may be due to enlarged right ovary but on the CT there does not appear to be a separate mass and suspect it was an exophytic leiomyoma #DM2: Glucose Accu-Cheks are variable from 75-277. In BMP 175. ? continue with her long-acting insulin ? Accu-Cheks ACHS ? Sliding scale insulin 07/24: Patient had hypoglycemia glucose 30 6 in the morning which came up to 95 after oral glucose treatment. Most recent 229. Glucose very variable. DVT: Lovenox subq Charges/Coding Visit Charges Inpatient E&M: 74708 Subs Hosp L2
[2022-07-24 16:41] LABS: Bedside Glucose 234 mg/dL (74-106)
--- NOTE | 2022-07-24 16:45 | MRI_ITS ---
STUDY: MR PELVIS WITH T WITHOUT CONTRAST REASON FOR EXAM: pelvic mass TECHNIQUE: Standardized fat and water weighted pulse sequences were obtained in all 3 orthogonal planes, pre-and post contrast administration. IV 8ml clariscan was administered for the contrast portion of the examination. COMPARISON: CT pelvis July 16, 2022. Pelvic ultrasound July 20, 2022. LIMITATIONS: Motion artifact. FINDINGS: The uterus is enlarged and lobulated containing multiple fibroids. Larger fibroids measure 5 cm. Several fibroids are degenerated containing complex fluid. The ovaries are not well visualized bilaterally. A Ochoa catheter terminates in the collapsed bladder. No free pelvic fluid. Spina bifida is redemonstrated. An ulceration at the midline posterior body wall extends to the open spinal canal as described in the CT report. Edema of the gluteus musculature and hip adductors is identified on the right. A decubitus ulcer to the right of midline extends to the ischial tuberosity and inferior pubic ramus with associated marrow edema. In the same region, a fistulous tract near the midline extends from the skin to the rectum at the posterior wall. No defined drainable abscess identified. MRI/Pelvis W/WO Contrast IMPRESSION: 1. Enlarged lobulated uterus contains multiple fibroids in various stages of degeneration. 2. Decubitus ulcer with a fistula from the skin at the midline to the posterior wall of the rectum. 3. Decubitus ulcer to the right of midline extends to the ischial tuberosity. Associated osteomyelitis of the right ischial tuberosity and inferior pubic ramus. Myositis of the gluteus musculature and hip adductors on the right. Electronically Signed: Fab Kovacs MD at 2:45 EDT ,
--- NOTE | 2022-07-24 18:24 | PN.OBGYN_ITS ---
Subjective Subjective patient doing well denies abdominal pain, deciding she doesn't want to proceed with colostomy. denies cp sob nv or vaginal bleeding Objective Data Objective Data Vital Signs: Vital Signs Temp Pulse Resp BP Pulse Ox O2 Del Method 98 F 104 H 18 130/76 H 97 Room Air 07/24/22 15:32 07/24/22 15:32 07/24/22 15:32 07/24/22 15:32 07/24/22 15:32 07/24/22 15:32 Oxygen Delivery Method Room Air Weight: 94 lb Body Mass Index (BMI) 21.0 Intake & Output: Intake and Output for Last 24 Hours 07/22/22 07/23/22 07/24/22 23:59 23:59 23:59 Intake Total 1855.54 / 2155.54 1008.58 / 1128.58 879 / 879 Output Total 2250 / 2550 1950 / 2500 1300 / 1300 Balance -394.46 / -394.46 -941.42 / -1371.42 -421 / -421 Lab / Micro Data Result Diagrams: 07/24/22 06:00 07/24/22 09:42 Labs: Laboratory Results - last 24 hr 07/23/22 20:08: POC Glucose 161 H 07/24/22 06:00: WBC 11.1 H, RBC 4.38, Hgb 11.4 L, Hct 37.4, MCV 85.4, MCH 26.0 L , MCHC 30.5 L, RDW Std Deviation 63.0 H, RDW Coeff of Maurizio 20.3 H, Plt Count 333, MPV 8.9, Immature Gran % (Auto) 1.100 H, Neut % (Auto) 72.4 H, Lymph % (Auto) 15 .3 L, [place] % (Auto) 7.7, Eos % (Auto) 3.1, Baso % (Auto) 0.4, Absolute Neuts (auto) 8.1 H, Absolute Lymphs (auto) 1.70, Nucleated RBC % 0, Anisocytosis 1+ 07/24/22 06:00: Sodium 136, Potassium 4.5, Chloride 107, Carbon Dioxide 24.0, Anion Gap 5, BUN 27 H, Creatinine 0.81, Estim Creat Clear Calc 60.28, Est GFR (MDRD) Af Amer 99, Est GFR (MDRD) Non-Af 82, BUN/Creatinine Ratio 33.4 H, Glucose 141 H, Calcium 8.8, Total Bilirubin 0.30, AST 15, ALT 19, Alkaline Phosphatase 112, Total Protein 6.6, Albumin 2.1 L, Globulin 4.5 H, Albumin/Globulin Ratio 0.5 L 07/24/22 06:00: Random Vancomycin 11.0 07/24/22 06:06: POC Glucose 152 H 07/24/22 09:20: POC Glucose 36 L* 07/24/22 09:39: POC Glucose 95 07/24/22 09:42: Glucose 105 07/24/22 11:08: POC Glucose 229 H 07/24/22 16:08: POC Glucose 234 H Micro: Microbiology 07/18/22 13:53 Bone - Sacral Bone Gram Stain - Final 07/18/22 13:53 Bone - Sacral Bone Wound Culture - Final Pseudomonas aeruginosa 07/18/22 13:53 Bone - Sacral Bone Anaerobic Culture - Preliminary No growth in 48 hours. 07/18/22 13:59 Tissue - Sacral Gram Stain - Final 07/18/22 13:59 Tissue - Sacral Wound Culture - Final Presumptive C albicans Enterococcus faecalis Staphylococcus epidermidis Pseudomonas aeruginosa 07/18/22 13:59 Tissue - Sacral Anaerobic Culture - Final Anaerobic cocci 07/16/22 12:30 Blood Culture (Wb) - Right Forearm Blood Culture - Final No growth in 5 days. 07/16/22 14:26 Blood Culture (Wb) - Anticubital Left Blood Culture - Final No growth in 5 days. 07/18/22 14:24 Bone - Ischial Bone Gram Stain - Final 07/18/22 14:24 Bone - Ischial Bone Wound Culture - Final Pseudomonas aeruginosa Presumptive C albicans 07/18/22 14:24 Bone - Ischial Bone Anaerobic Culture - Final No anaerobic bacteria isolated. 07/18/22 14:29 Tissue - Ischial Pressure Sore Gram Stain - Final 07/18/22 14:29 Tissue - Ischial Pressure Sore Wound Culture - Final Enterococcus faecalis Pseudomonas aeruginosa Presumptive C albicans 07/18/22 14:29 Tissue - Ischial Pressure Sore Anaerobic Culture - Final No anaerobic bacteria isolated. 07/17/22 07:45 Wound - Buttock Gram Stain - Final 07/17/22 07:45 Wound - Buttock Wound Culture - Final Presumptive C albicans ROS Constitutional Constitutional: Reports systems reviewed and no addt'l complaints, except as documented Cardiovascular Cardiovascular: Reports systems reviewed and no addt'l complaints, except as documented Respiratory/Chest Respiratory/Chest: Reports systems reviewed and no addt'l complaints, except as documented Gastrointestinal Gastrointestinal: Reports systems reviewed and no addt'l complaints, except as documented Physical Exam Const alert, oriented x3 and no apparent distress HEENT Head and Scalp: atraumatic Resp normal respiratory effort GI soft to palpation and non-tender GI Narrative: enlarged fibroid uterus coming up under umbilicus Assessment & Plan (1) Adnexal mass: COMMENT: suspect degenerating pedunculated fibroid, recommend pelvic MRI if able, if not will evaluate at time of surgery. CEA and CA 125 low risk levels. FSH and estradiol-premenopausal range (2) Fibroid uterus: COMMENT: discussed low risk for uterine cancer, fibroids will shrink in menopause, may choose to not surgical remove unless desired or symptomatic. FSH and estradiol ordered to evaluate menopausal status-premenopausal range. PLAN: Plan see a/p comments above, premenopausal fsh estradiol. declining hysterectomy. following peripherally and will be available at time of surgery if she has it, if adnexal mass is not a pedunculated fibroid and is indeed ovarian in origin and would need oophorectomy. Charges/Coding Visit Charges Inpatient E&M: 28161 Init Hosp L2
[2022-07-24 18:54] LABS: Differential Comment SCANNED
--- NOTE | 2022-07-24 22:28 | NURSING ---
Pic line nurse here. She can not put a picc line line with hx of a shunt. She said she can put a midline line. Mireille attempted to get a iv in but was unsucessful. Pt and family is refusing to have a port put in her. Pic line nurse said the only thing she can put in her is a midline. She said she will need a radiology instrument mechanic to put her picc line in.
[2022-07-24 22:50] VITALS: BP 123/79; PULSE 102; RESP 18; TEMP 36.6; O2SAT 95
[2022-07-24] MEDS: Insulin Glargine-YFGN 100 UNIT/ML Pen 10 UNIT SC (22:54)
[2022-07-24] MEDS: FLUoxetine 20 MG Capsule PO (22:55)
[2022-07-25 03:26] LABS: Bedside Glucose 199 mg/dL (74-106)
[2022-07-25 06:30] VITALS: BP 114/62; PULSE 93; RESP 15; TEMP 36.8; O2SAT 96
[2022-07-25] MEDS: Insulin Lispro 100 UNIT/ML INSULN.PEN SC ×4 (06:37→21:29)
[2022-07-25 07:00] LABS: Bedside Glucose 143 mg/dL (74-106)
--- NOTE | 2022-07-25 08:34 | DCINST_ITS ---
Discharge Instructions Follow Up Care Test Results: Test results from this visit will be discussed in further detail at your follow- up appointment, if applicable. Discharge Plan Admission Admit Date/Time: 07/16/22 15:37 Attending Provider: Lucas Key Primary Care Provider: Cosmo Smith Consulting Providers: Pal Luevano ; Javon Mitchell ; Niels Martin ; Roe Gomez ; Dionne Gunter ; Devi Lauren Instructions Additional Instructions / Restrictions: DISCHARGE INSTRUCTIONS PLEASE READ *Please take this with you to your next doctors appointment* -Please follow-up with Dr. Marshall upon discharge to evaluate for suprapubic catheter placement. -Please follow-up with plastic surgery upon discharge for your follow-up -Please follow with the wound care clinic upon follow-up -Please call your primary care provider's office upon discharge to schedule a hospital follow up within 1 week. -For any concerning signs or symptoms please call 911 or proceed to the nearest emergency department Discharge Orders/Prescriptions Prescriptions: New fluconazole 100 mg Tablet 200 mg PO DAILY 40 Days Qty: 80 0RF meropenem 1 gram Recon Soln 1 g IV Q8 37 Days Qty: 111 0RF Rx Instructions: stop date 08/29/22 dx: sacral osteo weekly bmp, cbc, LFT, vanc trough, and esr. Fax to [phone] vancomycin in dextrose 5 % 1 gram/200 mL Piggyback 1,000 mg IV Q24H 37 Days Qty: 7400 0RF Rx Instructions: stop date 08/29/22 dx: sacral osteo weekly bmp, cbc, LFT, vanc trough, and esr. Fax to [phone] Discontinued cephalexin 500 mg capsule 500 mg PO 4X/DAY doxycycline monohydrate 100 mg capsule 100 mg PO BID cephalexin 500 mg capsule 500 mg PO Q6 Qty: 40 0RF No Action insulin glargine [Lantus Solostar U-100 Insulin] 100 unit/mL (3 mL) insulin pen 20 unit subcut QPM fluoxetine 20 mg capsule 20 mg PO DAILY Qty: 60 1RF methylprednisolone [Methylpred DP] 4 mg tablets,dose pack 4 mg PO DAILY (DME) OneTouch Verio test strips Strip See Rx Instructions .Route Qty: 120 5RF Rx Instructions: 4x/day ferrous sulfate 325 mg (65 mg iron) tablet 325 mg PO DAILY Qty: 90 3RF insulin aspart U-100 [Novolog U-100 Insulin aspart] 100 unit/mL solution 6 unit subcut TIDWMEAL MDD 30 Qty: 10 5RF Rx Instructions: +SSI (DME) pen needle, diabetic [BD Ultra-Fine Charla Pen Needle] 32 gauge x 5/32 needle See Rx Instructions .ROUTE .MEDSUPPLY Qty: 400 1RF Rx Instructions: 4 times daily Referrals / Follow Up: Cosmo Smith MD [Primary Care Provider] - Disposition Disposition (needs filled in before D/C Order can be placed): Home Health Ser vice
[2022-07-25] MEDS: Vancomycin IV 1,000 MG/200 ML BAG 200 MG IV (10:00)
[2022-07-25] MEDS: Nystatin Powder 15gm Bottle 1 APPLIC TOPICAL ×2 (10:00→21:33)
[2022-07-25] MEDS: Glucerna Shake 120 ML LIQUID PO ×3 (10:01→18:30)
[2022-07-25] MEDS: Docusate Sodium 100 MG Capsule PO ×2 (10:02→21:31)
[2022-07-25] MEDS: Fluconazole 100 MG Tablet 200 MG PO (10:02)
[2022-07-25] MEDS: Enoxaparin 40 MG/0.4 ML Syringe SC (10:02)
[2022-07-25] MEDS: Ferrous Sulfate 325 MG Tablet PO (10:02)
[2022-07-25 10:31] LABS: Bedside Glucose 64 mg/dL (74-106)
[2022-07-25 10:51] LABS: Bedside Glucose 129 mg/dL (74-106)
--- NOTE | 2022-07-25 11:00 | CASEMGMT ---
Discharge Planning Updates and discharge date sent to [facility] via [employer] Awaiting acceptance yet. Idalia Farr
[2022-07-25 11:31] VITALS: BP 115/56; PULSE 106; RESP 18; TEMP 36.9; O2SAT 100
[2022-07-25 12:50] LABS: Bedside Glucose 435 mg/dL (74-106)
--- NOTE | 2022-07-25 13:10 | DS.PCM_ITS ---
Providers Date of Admission: 07/16/22 Date of Discharge: 07/25/22 Primary Care Physician: Dr. Cosmo Smith MD Consultations 07/16/22 16:50 Consult: Onc/Wound/diesel engine mechanic Routine Comment: Reason for Consult:: Decub Consult: Plastic Surgery Routine Consulting Provider: Javon Mitchell Reason for Consult: Decubitus ulcer EMERGENT Consult: No MD Notified: Yes Date Notified: 07/17/22 Time Notified: 08:16 Method of Notification: office 07/19/22 08:20 Consult: Infectious Disease Routine Consulting Provider: Niels Martin Reason for Consult: R ischial osteo EMERGENT Consult: No MD Notified: Yes Date Notified: 07/19/22 Time Notified: 08:24 Method of Notification: Text 07/20/22 08:27 Consult: General Surgery Routine Consulting Provider: Roe Gomez Reason for Consult: Evaluation for diverting ostomy EMERGENT Consult: No MD Notified: Yes Date Notified: 07/20/22 Time Notified: 08:27 Method of Notification: Verbal 07/20/22 10:50 Consult: CLOTH SHRINKING MACHINE OPERATOR Routine Consulting Provider: Dionne Gunter Reason for Consult: pelvic mass EMERGENT Consult: No Notified: Yes Date Notified: 07/20/22 Time Notified: 10:50 Method of Notification: Verbal Reason For Visit: DECUBITUS ULCER WITH WOUND INFECTION Diagnosis Discharge Diagnosis (1) Adnexal mass: Status: Acute Code(s): N94.89 - Other specified conditions associated with female genital organs and menstrual cycle (2) Fibroid uterus: Status: Acute Code(s): D25.9 - Leiomyoma of uterus, unspecified Plan #Recurrent right ischial pressure sore, 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 White count is elevated at 16.7 and she is tachycardic consistent with an infection of note her white count has been elevated since April, she was seeing hematology for this and they feel that is likely reactive but wanted outpatient follow-up -Had been at [facility] 10 to 14 days ago and given antibiotics and improved and then once they were completed wound worsened ? Empirically started was on IV Zosyn. ? Patient had wound debridement on 07/[address] Mitchell. 07/23 on IV antibiotics vancomycin and meropenem changed as per sensitivity. Surgical culture shows MR CoNS, Enterococcus, Pseudomonas, resistant to Zosyn and cefepime, Naty albicans. Fluconazole added. Dr. Mccollum talked to the urologist Dr. Marshall once he said patient can be discharged on Ochoa catheter and outpatient urology follow-up for suprapubic catheterization. MRI abdomen pending to get more information on the patient from [facility]. Discussed with Dr. Mitchell. Tentative plan for surgical diverting colostomy on but patient and her mother not eager for surgery now but may be later as an outpatient. 07/24: Peripheral line not working. Several years ago patient had technical failure of PICC line as it could not past through. She wants to try first PICC line before going for tunneled central line. Discussed with ID, surgeon, patient and her mother. Surgeon could not do before for tunnel dialysis catheter but agreeable for trying PICC line first. Single-lumen PICC line ordered. 07/25: Patient and her mother do not want diverting colostomy now but want to wait until nutrition is built up. Plastic surgeon recommended diverse and colostomy before reconstructive surgery of decubitus ulcer. Patient had midline. Antibiotic vancomycin, meropenem and fluconazole prescribed by ID. Prescription for oxycodone 2.5-5 mg every 6 hourly as needed for moderate to severe pain respectively total 7 tablets given. Patient and her mom said that with the digital pressure on the gluteal/perirectal region she can move bowel. Senna S, 2 tablet twice daily for constipation #Pelvic mass -CT 07/16 with 9.1 x 13.1 x 7.3 cm complex solid and cystic mass arising from the pelvis extending towards her abdomen more prominent on the right side and also prominence of the uterus suggesting fibroid uterus. Upon taking over from admitting physician this was reviewed but given read of large heterogenous mass in lower abdomen and pelvis as described with fibroid uterus it seemed that this was described with the fibroid uterus. elvic ultrasound with enlarged heterogenous uterus with multiple leiomyomas and varying stages of degeneration. 07/23: Patient was evaluated by printed circuit board preassembler Dr. Young Au. No urgent gynecologic surgery needed. There was a question of a separate mass in the right adnexa that may be due to enlarged right ovary but on the CT there does not appear to be a separate mass and suspect it was an exophytic leiomyoma 07/25: Patient can follow-up with Dr. Young Au and [place] needs a right adnexal mass to duodenum diverting colostomy in collaboration with surgeon Dr. Dahl type patient decides for diverting colostomy. #Labile DM2: Glucose Accu-Cheks are variable from 75-277. In BMP 175. ? continue with her long-acting insulin ? Accu-Cheks ACHS ? Sliding scale insulin 07/24: Patient had hypoglycemia glucose 36 in the morning which came up to 95 after oral glucose treatment. Most recent 229. Glucose very variable. 07/25 glucose is high 430 5 in the morning. On Lantus and prandial insulin. Glucose is variable from hypoglycemia, from 40s to 400s. DVT: Lovenox subq Microbiology Past 72 Hours 07/18/22 13:53 Bone - Sacral Bone Gram Stain - Final 07/18/22 13:53 Bone - Sacral Bone Wound Culture - Final Pseudomonas aeruginosa 07/18/22 13:53 Bone - Sacral Bone Anaerobic Culture - Preliminary No growth in 48 hours. Laboratory Results 07/24/22 06:00: Differential Comment SCANNED 07/24/22 16:08: POC Glucose 234 H 07/24/22 22:52: POC Glucose 199 H 07/25/22 06:33: POC Glucose 143 H 07/25/22 09:57: POC Glucose 64 L 07/25/22 10:28: POC Glucose 129 H 07/25/22 12:27: POC Glucose 435 H Medications at Discharge Home Medications blood sugar diagnostic (OneTouch Verio test strips) #120 ea 05/31/22 fluoxetine 20 mg capsule 20 mg PO DAILY #60 caps 06/21/22 ferrous sulfate 325 mg (65 mg iron) tablet 325 mg PO DAILY #90 tabs 06/22/22 insulin aspart U-100 100 unit/mL subcutaneous solution (Novolog U-100 Insulin aspart) 6 unit (0.06 mL) subcut TIDWMEAL #10 mL 07/16/22 pen needle, diabetic 32 gauge x 5/32 (BD Ultra-Fine Charla Pen Needle) #400 ea 07/16/22 fluconazole 100 mg tablet 200 mg PO DAILY 40 days #80 tabs 07/24/22 meropenem 1 gram intravenous solution 1 g IV Q8 37 days #111 ea 07/24/22 vancomycin 1 gram/200 mL in dextrose 5 % intravenous piggyback 1,000 mg IV Q24H 37 days #7,400 mL 07/24/22 insulin glargine 100 unit/mL (3 mL) subcutaneous pen (Lantus Solostar U-100 Insulin) 10 unit (0.1 mL) subcut QPM #15 mL 07/25/22 insulin lispro 100 unit/mL subcutaneous pen (Humalog KwikPen (U-100) Insulin) See Protocol subcut ACHS #0 mL 07/25/22 oxycodone 5 mg tablet 2.5 mg PO Q4H PRN PRN Pain Score 6-10 3 days #7 tabs 07/25/22 sennosides 8.6 mg-docusate sodium 50 mg tablet (Senna-Time S) 2 tab-cap PO BID PRN constipation #60 tabs 07/25/22 Physical Exam Narrative Seen and examined. No acute issues. No fever. Patient has history of spina bifida L5-S1, wheelchair-bound with lower extremities contracture and muscle atrophy. Physical exam General: Alert, Oriented x3, Cooperative, BMI 21.1 kg/m?, short stature. HEENT: Atraumatic, PERRLA, EOMI, Normocephalic Oral: Oral mucosa moist. No Gingival or Mucosal Lesions/ Ulcerations Neck: Supple, No JVD, Negative Carotid Bruits Lungs: Air entry diminished in bilateral lung bases. No crepitation/rhonchi Cardiovascular: Regular rate, Regular Rhythm, Normal S1, Normal S2, No murmurs Abdomen: Bowel Sounds Present, Soft, Non Tender, Non-Distended : Ochoa catheter. Chronic urinary incontinence. No renal angle tenderness. No suprapubic tenderness. Extremities: No edema, Capillary Refill Less than 3 Seconds Skin: Status post incision and drainage of ischium and sacrum. Musculoskeletal: Spina bifida L5-S1. Wheelchair-bound. Muscle atrophy of lower extremities with impaired general sensation. Contracture of lower extremities. Neurological: Cranial nerves II-XII grossly intact, chronic muscle atrophy of lower extremities and contractures, urinary bladder and general sensation impairment Psych/Mental Status: Flat affect Weight / BMI Weight Weight: 94 lb Body Mass Index (BMI) 21.0 ABG / Lab / Microbiology Data Result Diagrams: 07/24/22 06:00 07/24/22 09:42 Laboratory: Laboratory Results - last 24 hr 07/24/22 06:00: Differential Comment SCANNED 07/24/22 16:08: POC Glucose 234 H 07/24/22 22:52: POC Glucose 199 H 07/25/22 06:33: POC Glucose 143 H 07/25/22 09:57: POC Glucose 64 L 07/25/22 10:28: POC Glucose 129 H 07/25/22 12:27: POC Glucose 435 H Microbiology: Microbiology 07/18/22 13:53 Bone - Sacral Bone Gram Stain - Final 07/18/22 13:53 Bone - Sacral Bone Wound Culture - Final Pseudomonas aeruginosa 07/18/22 13:53 Bone - Sacral Bone Anaerobic Culture - Preliminary No growth in 48 hours. 07/18/22 13:59 Tissue - Sacral Gram Stain - Final 07/18/22 13:59 Tissue - Sacral Wound Culture - Final Presumptive C albicans Enterococcus faecalis Staphylococcus epidermidis Pseudomonas aeruginosa 07/18/22 13:59 Tissue - Sacral Anaerobic Culture - Final Anaerobic cocci 07/16/22 12:30 Blood Culture (Wb) - Right Forearm Blood Culture - Final No growth in 5 days. 07/16/22 14:26 Blood Culture (Wb) - Anticubital Left Blood Culture - Final No growth in 5 days. 07/18/22 14:24 Bone - Ischial Bone Gram Stain - Final 07/18/22 14:24 Bone - Ischial Bone Wound Culture - Final Pseudomonas aeruginosa Presumptive C albicans 07/18/22 14:24 Bone - Ischial Bone Anaerobic Culture - Final No anaerobic bacteria isolated. 07/18/22 14:29 Tissue - Ischial Pressure Sore Gram Stain - Final 07/18/22 14:29 Tissue - Ischial Pressure Sore Wound Culture - Final Enterococcus faecalis Pseudomonas aeruginosa Presumptive C albicans 07/18/22 14:29 Tissue - Ischial Pressure Sore Anaerobic Culture - Final No anaerobic bacteria isolated. 07/17/22 07:45 Wound - Buttock Gram Stain - Final 07/17/22 07:45 Wound - Buttock Wound Culture - Final Presumptive C albicans Radiography Diagnostic Testing: Radiology Impression Pelvis MRI 07/24/22 16:45 IMPRESSION: 1. Enlarged lobulated uterus contains multiple fibroids in various stages of degeneration. 2. Decubitus ulcer with a fistula from the skin at the midline to the posterior wall of the rectum. 3. Decubitus ulcer to the right of midline extends to the ischial tuberosity. Associated osteomyelitis of the right ischial tuberosity and inferior pubic ramus. Myositis of the gluteus musculature and hip adductors on the right. Electronically Signed: Fab Kovacs MD at 2:45 EDT , Meaningful Use Info Meaningful Use Diagnoses (Choose all that apply): None applicable Discharge Plan Admission Admit Date/Time: 07/16/22 15:37 Primary Reason for Your Visit: Sacral decubitus ulcer. Attending Provider: Lucas Key Primary Care Provider: Cosmo Smith Consulting Providers: Pal Luevano ; Javon Mitchell ; Niels Martin ; Roe Gomez ; Dionne Gunter ; Devi Lauren Instructions Additional Instructions / Restrictions: DISCHARGE INSTRUCTIONS PLEASE READ *Please take this with you to your next doctors appointment* -Please follow-up with Dr. Marshall upon discharge to evaluate for suprapubic catheter placement. Discharged with indwelling [place] catheter. -Please follow-up with plastic surgery upon discharge for your follow-up -Please follow with the wound care clinic upon follow-up -Please call your primary care provider's office upon discharge to schedule a hospital follow up within 1 week. -For any concerning signs or symptoms please call 911 or proceed to the nearest emergency department Discharge Orders/Prescriptions Prescriptions: New fluconazole 100 mg Tablet 200 mg PO DAILY 40 Days Qty: 80 0RF meropenem 1 gram Recon Soln 1 g IV Q8 37 Days Qty: 111 0RF Rx Instructions: stop date 08/29/22 dx: sacral osteo weekly bmp, cbc, LFT, vanc trough, and esr. Fax to [phone] vancomycin in dextrose 5 % 1 gram/200 mL Piggyback 1,000 mg IV Q24H 37 Days Qty: 7400 0RF Rx Instructions: stop date 08/29/22 dx: sacral osteo weekly bmp, cbc, LFT, vanc trough, and esr. Fax to [phone] oxycodone 5 mg Tablet 2.5 mg PO Q4H PRN PRN (Reason: Pain Score 6-10) 3 Days Qty: 7 0RF Rx Instructions: 2.5 mg for moderate pain and 5 mg for severe pain. insulin lispro [Humalog KwikPen Insulin] 100 unit/mL Insulin Pen See Protocol subcut ACHS Qty: 0 0RF Protocol: 6. Sliding Scale Insulin Custom Condition: GLUCOSE LEVEL (mg/dl) range Dose/Route: Number of Units Condition: 141-180 Dose/Route: 7 Condition: 181-220 Dose/Route: 8 Condition: 221-260 Dose/Route: 9 Condition: 261-300 Dose/Route: 10 Condition: 301-340 Dose/Route: 11 Condition: 341-380 Dose/Route: 12 Condition: 381-HIGHER Dose/Route: 13 Protocol Text: Custom Sliding Scale sennosides-docusate sodium [Senna-Time S] 8.6-50 mg tablet 2 tab-cap PO BID PRN (Reason: constipation) Qty: 60 0RF Continued fluoxetine 20 mg capsule 20 mg PO DAILY Qty: 60 1RF (DME) OneTouch Verio test strips Strip See Rx Instructions .Route Qty: 120 5RF Rx Instructions: 4x/day ferrous sulfate 325 mg (65 mg iron) tablet 325 mg PO DAILY Qty: 90 3RF insulin aspart U-100 [Novolog U-100 Insulin aspart] 100 unit/mL solution 6 unit subcut TIDWMEAL MDD 30 Qty: 10 5RF Rx Instructions: +SSI (DME) pen needle, diabetic [BD Ultra-Fine Charla Pen Needle] 32 gauge x 5/32 needle See Rx Instructions .ROUTE .MEDSUPPLY Qty: 400 1RF Rx Instructions: 4 times daily Changed insulin glargine [Lantus Solostar U-100 Insulin] 100 unit/mL (3 mL) insulin pen 10 unit subcut QPM Qty: 15 0RF Discontinued cephalexin 500 mg capsule 500 mg PO 4X/DAY doxycycline monohydrate 100 mg capsule 100 mg PO BID methylprednisolone [Methylpred DP] 4 mg tablets,dose pack 4 mg PO DAILY cephalexin 500 mg capsule 500 mg PO Q6 Qty: 40 0RF Referrals / Follow Up: Roe Gomez MD [Med Staff - Active Staff] - Within 1 Month (If decides for diverting colostomy.) Cosmo Smith MD [Primary Care Provider] - Crystal Marshall MD [Med Staff - Active Staff] - Within 2 Weeks (For evaluation for suprapubic cystostomy) Javon Mitchell MD [Med Staff - Active Staff] - Within 2 Weeks Niels Martin MD [Med Staff - Active Staff] - Within 2 Weeks (As needed for antibiotic.) Dionne Gunter MD [Med Staff - Active Staff] - Within 1 Month (If decides for diverting colostomy and for fibroma.) Disposition Disposition (needs filled in before D/C Order can be placed): Nursing Home Facility Charges/Coding Visit Charges Inpatient E&M: 44770 Disch Hosp >30min
--- NOTE | 2022-07-25 13:31 | PHA.DC.MR ---
Addendum entered and electronically signed by Mally Osuna 07/27/22 15:26: Antibiotics changed to PO, reviewed changes. Home Medications blood sugar diagnostic (OneTouch Verio test strips) #120 ea 05/31/22 fluoxetine 20 mg capsule 20 mg PO DAILY #60 caps 06/21/22 ferrous sulfate 325 mg (65 mg iron) tablet 325 mg PO DAILY #90 tabs 06/22/22 insulin aspart U-100 100 unit/mL subcutaneous solution (Novolog U-100 Insulin aspart) 6 unit (0.06 mL) subcut TIDWMEAL #10 mL 07/16/22 pen needle, diabetic 32 gauge x 5/32 (BD Ultra-Fine Charla Pen Needle) #400 ea 07/16/22 fluconazole 100 mg tablet 200 mg PO DAILY 40 days #80 tabs 07/24/22 insulin glargine 100 unit/mL (3 mL) subcutaneous pen (Lantus Solostar U-100 Insulin) 10 unit (0.1 mL) subcut QPM #15 mL 07/25/22 insulin lispro 100 unit/mL subcutaneous pen (Humalog KwikPen (U-100) Insulin) See Protocol subcut ACHS #0 mL 07/25/22 oxycodone 5 mg tablet 2.5 mg PO Q4H PRN PRN Pain Score 6-10 3 days #7 tabs 07/25/22 sennosides 8.6 mg-docusate sodium 50 mg tablet (Senna-Time S) 2 tab-cap PO BID PRN constipation #60 tabs 07/25/22 amoxicillin 875 mg-potassium clavulanate 125 mg tablet 1 tab PO BID #66 tabs 07/27/22 ciprofloxacin HCl 500 mg tablet (Cipro) 500 mg PO BID #66 tabs 07/27/22 linezolid 600 mg tablet 600 mg PO Q12H 10 days #20 tabs 07/27/22 Original Note: Pharmacy Service has performed discharge medication reconciliation for this patient. The patient's discharge medication list was reviewed for discrepancies and discrepancies were resolved. Home Medications blood sugar diagnostic (OneTouch Verio test strips) #120 ea 05/31/22 fluoxetine 20 mg capsule 20 mg PO DAILY #60 caps 06/21/22 ferrous sulfate 325 mg (65 mg iron) tablet 325 mg PO DAILY #90 tabs 06/22/22 insulin aspart U-100 100 unit/mL subcutaneous solution (Novolog U-100 Insulin aspart) 6 unit (0.06 mL) subcut TIDWMEAL #10 mL 07/16/22 pen needle, diabetic 32 gauge x 5/32 (BD Ultra-Fine Charla Pen Needle) #400 ea 07/16/22 fluconazole 100 mg tablet 200 mg PO DAILY 40 days #80 tabs 07/24/22 meropenem 1 gram intravenous solution 1 g IV Q8 37 days #111 ea 07/24/22 vancomycin 1 gram/200 mL in dextrose 5 % intravenous piggyback 1,000 mg IV Q24H 37 days #7,400 mL 07/24/22 insulin glargine 100 unit/mL (3 mL) subcutaneous pen (Lantus Solostar U-100 Insulin) 10 unit (0.1 mL) subcut QPM #15 mL 07/25/22 insulin lispro 100 unit/mL subcutaneous pen (Humalog KwikPen (U-100) Insulin) See Protocol subcut ACHS #0 mL 07/25/22 oxycodone 5 mg tablet 2.5 mg PO Q4H PRN PRN Pain Score 6-10 3 days #7 tabs 07/25/22 sennosides 8.6 mg-docusate sodium 50 mg tablet (Senna-Time S) 2 tab-cap PO BID PRN constipation #60 tabs 07/25/22
--- NOTE | 2022-07-25 14:39 | PCM.PN.HOSP ---
Reason for Visit Reason for Visit: Diagnoses Leiomyoma of uterus, unspecified (07/16/22) Pressure ulcer of sacral region, stage 4 (07/16/22) Osteomyelitis, unspecified (07/16/22) Other specified conditions associated with female genital organs and menstrual cycle (07/16/22) Subjective Subjective Follow-up for sacral and gluteal decubitus ulcer, osteomyelitis. Objective Data Objective Data Vital Signs: Vital Signs Temp Pulse Resp BP Pulse Ox O2 Del Method 98.5 F 106 H 18 115/56 L 100 Room Air 07/25/22 11:31 07/25/22 11:31 07/25/22 11:31 07/25/22 11:31 07/25/22 11:31 07/25/22 11:31 Oxygen Delivery Method Room Air Weight: 94 lb Body Mass Index (BMI) 21.0 Intake & Output: Intake and Output for Last 24 Hours 07/23/22 07/24/22 07/25/22 23:59 23:59 23:59 Intake Total 1008.58 / 1128.58 879 / 1379 1283.85 / 1283.85 Output Total 1950 / 2500 1300 / 1950 1650 / 1650 Balance -941.42 / -1371.42 -421 / -571 -366.15 / -366.15 Lab / Micro Data Result Diagrams: 07/24/22 06:00 07/24/22 09:42 Labs: Laboratory Results - last 24 hr 07/24/22 06:00: Differential Comment SCANNED 07/24/22 16:08: POC Glucose 234 H 07/24/22 22:52: POC Glucose 199 H 07/25/22 06:33: POC Glucose 143 H 07/25/22 09:57: POC Glucose 64 L 07/25/22 10:28: POC Glucose 129 H 07/25/22 12:27: POC Glucose 435 H Micro: Microbiology 07/18/22 13:53 Bone - Sacral Bone Gram Stain - Final 07/18/22 13:53 Bone - Sacral Bone Wound Culture - Final Pseudomonas aeruginosa 07/18/22 13:53 Bone - Sacral Bone Anaerobic Culture - Preliminary No growth in 48 hours. 07/18/22 13:59 Tissue - Sacral Gram Stain - Final 07/18/22 13:59 Tissue - Sacral Wound Culture - Final Presumptive C albicans Enterococcus faecalis Staphylococcus epidermidis Pseudomonas aeruginosa 07/18/22 13:59 Tissue - Sacral Anaerobic Culture - Final Anaerobic cocci 07/16/22 12:30 Blood Culture (Wb) - Right Forearm Blood Culture - Final No growth in 5 days. 07/16/22 14:26 Blood Culture (Wb) - Anticubital Left Blood Culture - Final No growth in 5 days. 07/18/22 14:24 Bone - Ischial Bone Gram Stain - Final 07/18/22 14:24 Bone - Ischial Bone Wound Culture - Final Pseudomonas aeruginosa Presumptive C albicans 07/18/22 14:24 Bone - Ischial Bone Anaerobic Culture - Final No anaerobic bacteria isolated. 07/18/22 14:29 Tissue - Ischial Pressure Sore Gram Stain - Final 07/18/22 14:29 Tissue - Ischial Pressure Sore Wound Culture - Final Enterococcus faecalis Pseudomonas aeruginosa Presumptive C albicans 07/18/22 14:29 Tissue - Ischial Pressure Sore Anaerobic Culture - Final No anaerobic bacteria isolated. 07/17/22 07:45 Wound - Buttock Gram Stain - Final 07/17/22 07:45 Wound - Buttock Wound Culture - Final Presumptive C albicans Radiography Diagnostic Testing: Radiology Impression Pelvis MRI 07/24/22 16:45 IMPRESSION: 1. Enlarged lobulated uterus contains multiple fibroids in various stages of degeneration. 2. Decubitus ulcer with a fistula from the skin at the midline to the posterior wall of the rectum. 3. Decubitus ulcer to the right of midline extends to the ischial tuberosity. Associated osteomyelitis of the right ischial tuberosity and inferior pubic ramus. Myositis of the gluteus musculature and hip adductors on the right. Electronically Signed: Fab Kovacs MD at 2:45 EDT , Physical Exam Narrative Seen and examined. No acute issues. No fever. Patient has history of spina bifida L5-S1, wheelchair-bound with lower extremities contracture and muscle atrophy. Physical exam General: Alert, Oriented x3, Cooperative, BMI 21.1 kg/m?, short stature. HEENT: Atraumatic, PERRLA, EOMI, Normocephalic Oral: Oral mucosa moist. No Gingival or Mucosal Lesions/ Ulcerations Neck: Supple, No JVD, Negative Carotid Bruits Lungs: Air entry diminished in bilateral lung bases. No crepitation/rhonchi Cardiovascular: Regular rate, Regular Rhythm, Normal S1, Normal S2, No murmurs Abdomen: Bowel Sounds Present, Soft, Non Tender, Non-Distended : Ochoa catheter. Chronic urinary incontinence. No renal angle tenderness. No suprapubic tenderness. Extremities: Right arm midline. No edema, Capillary Refill Less than 3 Seconds Skin: Status post incision and drainage of ischium and sacrum. Musculoskeletal: Spina bifida L5-S1. Wheelchair-bound. Muscle atrophy of lower extremities with impaired general sensation. Contracture of lower extremities. 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 White count is elevated at 16.7 and she is tachycardic consistent with an infection of note her white count has been elevated since April, she was seeing hematology for this and they feel that is likely reactive but wanted outpatient follow-up -Had been at [facility] 10 to 14 days ago and given antibiotics and improved and then once they were completed wound worsened ? Empirically started was on IV Zosyn. ? Patient had wound debridement on 07/[address] Mitchell. 07/23 on IV antibiotics vancomycin and meropenem changed as per sensitivity. Surgical culture shows MR CoNS, Enterococcus, Pseudomonas, resistant to Zosyn and cefepime, Naty albicans. Fluconazole added. Dr. Mccollum talked to the urologist Dr. Marshall once he said patient can be discharged on Ochoa catheter and outpatient urology follow-up for suprapubic catheterization. MRI abdomen pending to get more information on the patient from [facility]. Discussed with Dr. Mitchell. Tentative plan for surgical diverting colostomy on but patient and her mother not eager for surgery now but may be later as an outpatient. 07/24: Peripheral line not working. Several years ago patient had technical failure of PICC line as it could not past through. She wants to try first PICC line before going for tunneled central line. Discussed with ID, surgeon, patient and her mother. Surgeon could not do before for tunnel dialysis catheter but agreeable for trying PICC line first. Single-lumen PICC line ordered. 07/25: Patient and her mother do not want diverting colostomy now but want to wait until nutrition is built up. Plastic surgeon recommended diverse and colostomy before reconstructive surgery of decubitus ulcer. Patient had midline. Antibiotic vancomycin, meropenem and fluconazole prescribed by ID. Prescription for oxycodone 2.5-5 mg every 6 hourly as needed for moderate to severe pain respectively total 7 tablets given. Plan for tunneled central venous catheter tomorrow by surgeon. Hold discharge. Patient and her mom said that with the digital pressure on the gluteal/perirectal region she can move bowel. Senna S, 2 tablet twice daily for constipation #Pelvic mass -CT 07/16 with 9.1 x 13.1 x 7.3 cm complex solid and cystic mass arising from the pelvis extending towards her abdomen more prominent on the right side and also prominence of the uterus suggesting fibroid uterus. Upon taking over from admitting physician this was reviewed but given read of large heterogenous mass in lower abdomen and pelvis as described with fibroid uterus it seemed that this was described with the fibroid uterus. elvic ultrasound with enlarged heterogenous uterus with multiple leiomyomas and varying stages of degeneration. 07/23: Patient was evaluated by management supervisor Dr. Young Au. No urgent gynecologic surgery needed. There was a question of a separate mass in the right adnexa that may be due to enlarged right ovary but on the CT there does not appear to be a separate mass and suspect it was an exophytic leiomyoma 07/25: Patient can follow-up with Dr. Young Au as an outpatient for fibroma. Patient might need removal of fibroma/adnexal mass when plan for diverting colostomy in collaboration with surgeon Dr. Dahl type patient decides for diverting colostomy. #Labile DM2: Glucose Accu-Cheks are variable from 75-277. In BMP 175. ? continue with her long-acting insulin ? Accu-Cheks ACHS ? Sliding scale insulin 07/24: Patient had hypoglycemia glucose 36 in the morning which came up to 95 after oral glucose treatment. Most recent 229. Glucose very variable. 07/25 On Lantus and prandial insulin. Glucose is variable from hypoglycemia, from 40s to 400s. DVT: Lovenox subq Microbiology Past 72 Hours 07/18/22 13:53 Bone - Sacral Bone Gram Stain - Final 07/18/22 13:53 Bone - Sacral Bone Wound Culture - Final Pseudomonas aeruginosa 07/18/22 13:53 Bone - Sacral Bone Anaerobic Culture - Preliminary No growth in 48 hours. Laboratory Results 07/24/22 06:00: Differential Comment SCANNED 07/24/22 16:08: POC Glucose 234 H 07/24/22 22:52: POC Glucose 199 H 07/25/22 06:33: POC Glucose 143 H 07/25/22 09:57: POC Glucose 64 L 07/25/22 10:28: POC Glucose 129 H 07/25/22 12:27: POC Glucose 435 H Charges/Coding Visit Charges Inpatient E&M: 54803 Subs Hosp L2
[2022-07-25 15:58] VITALS: BP 123/73; PULSE 108; RESP 18; TEMP 36.8; O2SAT 99
[2022-07-25 16:26] LABS: Bedside Glucose 276 mg/dL (74-106)
--- NOTE | 2022-07-25 18:39 | CASEMGMT ---
Social Work 0700 started in the [employer], to be finished when accepting facility and date of discharge is known. Plan: Short term, skilled level of care, pending acceptance at [facility]. -SANDOVAL Roberson, PROPERTY CONDITION ASSESSOR
[2022-07-25 20:36] VITALS: BMI 21.0
[2022-07-25 21:09] VITALS: BP 125/66; PULSE 110; RESP 18; TEMP 36.6; O2SAT 96
[2022-07-25] MEDS: Insulin Glargine-YFGN 100 UNIT/ML Pen 10 UNIT SC (21:28)
[2022-07-25] MEDS: FLUoxetine 20 MG Capsule PO (21:33)
[2022-07-25 23:02] LABS: Internal QC Validated? YES +Cl - CLEAR BKGD; Pregnancy, Urine Negative Negative
[2022-07-26] VITALS (10 sets, daily range): BP systolic 99–124; BP diastolic 64–74; PULSE 88–105; RESP 16–18; TEMP 36.4–36.9; O2SAT 93–99; BMI 21.0
[2022-07-26 02:01] LABS: Bedside Glucose 360 mg/dL (74-106)
[2022-07-26] MEDS: Insulin Lispro 100 UNIT/ML INSULN.PEN SC ×3 (06:25→21:09)
[2022-07-26 07:00] LABS: Bedside Glucose 193 mg/dL (74-106)
--- NOTE | 2022-07-26 07:55 | PN_ITS ---
Progress Note Patient will reconsider diverting colostomy on an outpatient basis. Patient is having peripheral IV difficulty and will be discharged home on IV antibiotics. I do discussed chest port placement as she was unable to have a PICC placed. I discussed chest port placement with the patient in detail. I discussed the risks including but not limited to bleeding, infection, inability to place the catheter or need to use the opposite side. Patient understands all the risks and is willing to proceed. Roe Gomez MD Pager: [facility] [address] [place] [address] [address] [place] [address] Office:
--- NOTE | 2022-07-26 08:42 | CASEMGMT ---
Discharge Planning [facility] is unable to accept patient d/t production support supervisor needs for port. Idalia Farr
--- NOTE | 2022-07-26 09:30 | CASEMGMT ---
Social Work SW spoke with [facility] who states they are unable to accept pt due to port placement and their RN coverage. SW met with pt and updated about this. Pt upset about decision. Pt stating her mother is coming in shortly and requesting SW meet with pt and mother. Pt stating she would like to stay at a facility in [place]. SW placed calls to several facilities in the area to find out if they have rooms available and if they could accommodate a port placement with IV ATB. SW then met with pt and mother and discussed discharge plan. SW provided updated SNF information. Pt mother very frustrated and upset refusing other SNFs at this time stating [facility] is the only option they want. Mother inquiring about changing IV ATB regimen so SNF could accept pt. SW to followup with physician. MICHELLE Pinto
--- NOTE | 2022-07-26 10:00 | CASEMGMT ---
Discharge Planning Referrals sent to [facility] Both have female private rooms available. Idalia Farr
--- NOTE | 2022-07-26 10:12 | PN.HOSP_ITS ---
Reason for Visit Reason for Visit: Diagnoses Leiomyoma of uterus, unspecified (07/16/22) Pressure ulcer of sacral region, stage 4 (07/16/22) Osteomyelitis, unspecified (07/16/22) Other specified conditions associated with female genital organs and menstrual cycle (07/16/22) Objective Data Objective Data Vital Signs: Vital Signs Temp Pulse Resp BP Pulse Ox O2 Del Method 98.1 F 98 18 124/67 H 99 Room Air 07/26/22 08:30 07/26/22 08:30 07/26/22 08:30 07/26/22 08:30 07/26/22 08:30 07/26/22 08:30 Oxygen Delivery Method Room Air Weight: 94 lb Body Mass Index (BMI) 21.0 Intake & Output: Intake and Output for Last 24 Hours 07/24/22 07/25/22 07/26/22 23:59 23:59 23:59 Intake Total 879 / 1379 1803.85 / 2103.85 540 / 540 Output Total 1300 / 1950 2190 / 2490 1200 / 1200 Balance -421 / -571 -386.15 / -386.15 -660 / -660 Lab / Micro Data Result Diagrams: 07/24/22 06:00 07/24/22 09:42 Labs: Laboratory Results - last 24 hr 07/25/22 09:57: POC Glucose 64 L 07/25/22 10:28: POC Glucose 129 H 07/25/22 12:27: POC Glucose 435 H 07/25/22 16:05: POC Glucose 276 H 07/25/22 21:25: POC Glucose 360 H 07/25/22 21:30: Urine Test Negative 07/26/22 06:18: POC Glucose 193 H Micro: Microbiology 07/18/22 13:53 Bone - Sacral Bone Gram Stain - Final 07/18/22 13:53 Bone - Sacral Bone Wound Culture - Final Pseudomonas aeruginosa 07/18/22 13:53 Bone - Sacral Bone Anaerobic Culture - Preliminary No growth in 48 hours. 07/18/22 13:59 Tissue - Sacral Gram Stain - Final 07/18/22 13:59 Tissue - Sacral Wound Culture - Final Presumptive C albicans Enterococcus faecalis Staphylococcus epidermidis Pseudomonas aeruginosa 07/18/22 13:59 Tissue - Sacral Anaerobic Culture - Final Anaerobic cocci 07/16/22 12:30 Blood Culture (Wb) - Right Forearm Blood Culture - Final No growth in 5 days. 07/16/22 14:26 Blood Culture (Wb) - Anticubital Left Blood Culture - Final No growth in 5 days. 07/18/22 14:24 Bone - Ischial Bone Gram Stain - Final 07/18/22 14:24 Bone - Ischial Bone Wound Culture - Final Pseudomonas aeruginosa Presumptive C albicans 07/18/22 14:24 Bone - Ischial Bone Anaerobic Culture - Final No anaerobic bacteria isolated. 07/18/22 14:29 Tissue - Ischial Pressure Sore Gram Stain - Final 07/18/22 14:29 Tissue - Ischial Pressure Sore Wound Culture - Final Enterococcus faecalis Pseudomonas aeruginosa Presumptive C albicans 07/18/22 14:29 Tissue - Ischial Pressure Sore Anaerobic Culture - Final No anaerobic bacteria isolated. 07/17/22 07:45 Wound - Buttock Gram Stain - Final 07/17/22 07:45 Wound - Buttock Wound Culture - Final Presumptive C albicans Physical Exam Narrative No acute issues.? No fever. Patient mother are frustrated with her medical condition, fci restrictions. She wants to go [facility] but they want IV antibiotic once daily because they do not have nursing coverage during nighttime. ? Patient has history of spina bifida L5-S1, wheelchair-bound with lower extremities contracture and muscle atrophy. Physical exam General: Alert, Oriented x3, Cooperative, BMI 21.1 kg/m?, short stature. HEENT: Atraumatic, PERRLA, EOMI, Normocephalic Oral: Oral mucosa moist.? No Gingival or Mucosal Lesions/ Ulcerations Neck: Supple, No JVD, Negative Carotid Bruits Lungs:? Air entry diminished in bilateral lung bases.? No crepitation/rhonchi Cardiovascular: Regular rate, Regular Rhythm, Normal S1, Normal S2, No murmurs Abdomen: Bowel Sounds Present, Soft, Non Tender, Non-Distended : Ochoa catheter.? Chronic urinary incontinence.? No renal angle tenderness.? No suprapubic tenderness. Extremities: Right arm midline.? No edema, Capillary Refill Less than 3 Seconds Skin: Status post incision and drainage of ischium and sacrum. Musculoskeletal: Spina bifida L5-S1.? Wheelchair-bound.? Muscle atrophy of lower extremities with impaired general sensation.? Contracture of lower extremities. Neurological: Cranial nerves II-XII grossly intact,? chronic muscle atrophy of lower extremities and contractures, urinary bladder and general sensation? 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 White count is elevated at 16.7 and she is tachycardic consistent with an infection of note her white count has been elevated since April, she was seeing hematology for this and they feel that is likely reactive but wanted outpatient follow-up -Had been at [facility] 10 to 14 days ago and given antibiotics and improved and then once they were completed wound worsened ? Empirically started was on IV Zosyn. ? Patient had wound debridement on 07/[address] Mitchell. 07/23 on IV antibiotics vancomycin and meropenem changed as per sensitivity.? Surgical culture shows MR CoNS, Enterococcus, Pseudomonas, resistant to Zosyn and cefepime,? Naty albicans.? Fluconazole added.? Dr. Mccollum talked to the urologist Dr. Marshall once he said patient can be discharged on Ochoa catheter and outpatient urology follow-up for suprapubic catheterization. MRI abdomen pending to get more information on the patient from [facility].? Discussed with Dr. Mitchell.? Tentative plan for surgical diverting colostomy on but patient and her mother not eager for surgery now but may be later as an outpatient. 07/24: Peripheral line not working.? Several years ago patient had technical failure of PICC line as it could not past through.? She wants to try first PICC line before going for tunneled central line.? Discussed with ID, surgeon, patient and her mother.? Surgeon could not do before for tunnel dialysis catheter but agreeable for trying PICC line first.? Single-lumen PICC line ordered. 07/25: Patient and her mother do not want diverting colostomy now but want to wait until nutrition is built up.? Plastic surgeon recommended diverse and colostomy before reconstructive surgery of decubitus ulcer. Patient had midline.? Antibiotic vancomycin, meropenem and fluconazole prescribed by ID.? Prescription for oxycodone 2.5-5 mg every 6 hourly as needed for moderate to severe pain respectively total 7 tablets given.? Plan for tunneled central venous catheter tomorrow by surgeon.? Hold discharge. ?Patient and her mom said that with the digital pressure on the gluteal/perirectal region she can move bowel.? Senna S, 2 tablet twice daily for constipation 07/26: Patient was taken to the OR by surgeon. On ultrasound both jugulars are obliterated replaced with lot of a small collaterals. Procedure was aborted.He recommended to check with the interventional radiologist for alternate site for central venous access. I checked with ID regarding IV antibiotics and patient needs IV meropenem which cannot be changed to ertapenem because patient has Pseudomonas and wound infection. Therefore continue IV vancomycin and meropenem #Pelvic mass -CT 07/16 with 9.1 x 13.1 x 7.3 cm complex solid and cystic mass arising from the pelvis extending towards her abdomen more prominent on the right side and also prominence of the uterus suggesting fibroid uterus.? Upon taking over from a dmitting physician this was reviewed but given read of large heterogenous mass in lower abdomen and pelvis as described with fibroid uterus it seemed that this was described with the fibroid uterus. elvic ultrasound with enlarged heterogenous uterus with multiple leiomyomas and varying stages of degeneration. 07/23: Patient was evaluated by regional truck driver Dr. Young Au.? No urgent gynecologic surgery needed. There was a question of a separate mass in the right adnexa that may be due to enlarged right ovary but on the CT there does not appear to be a separate mass and suspect it was an exophytic leiomyoma 07/25: Patient can follow-up with Dr. Young Au as an outpatient for fibroma.? Patient might need removal of fibroma/adnexal mass when plan for diverting colostomy in collaboration with surgeon Dr. Dahl type patient decides for diverting colostomy. #Labile DM2: Glucose Accu-Cheks are variable from 75-277.? In BMP 175. ? continue with her long-acting insulin ? Accu-Cheks ACHS ? Sliding scale insulin 07/24: ? Patient had hypoglycemia glucose 36 in the morning which came up to 95 after oral glucose treatment.? Most recent 229.? Glucose very variable. 5/17? On Lantus and prandial insulin.? Glucose is variable from hypoglycemia, from 40s to 400s. DVT: Lovenox subq Charges/Coding Visit Charges Inpatient E&M: 44561 Subs Hosp L2
[2022-07-26 10:33] LABS: Vancomycin, Trough Level 14.5 ug/mL (5.0-15.0)
[2022-07-26] MEDS: 0.9% Saline Lock 10 ML Syringe IV (11:13)
--- NOTE | 2022-07-26 11:14 | PCM.RX.CS ---
Consult Pharmacy has been consulted to manage selected antiobiotic: Vancomycin Type of Consult: Follow-up Prior Doses of Antibiotics Received/Current Regimen: 1000MG IV Q24H Labs: Sodium 136 mmol/L (136-145) 07/24/22 06:00 Potassium 4.5 mmol/L (3.5-5.1) 07/24/22 06:00 Chloride 107 mmol/L (98-107) 07/24/22 06:00 Carbon Dioxide 24.0 mmol/L (21.0-32.0) 07/24/22 06:00 Anion Gap 5 (5-15) 07/24/22 06:00 BUN 27 mg/dL (7-18) H 07/24/22 06:00 Creatinine 0.81 mg/dL (0.55-1.02) 07/24/22 06:00 Est GFR (MDRD) Af Amer 99 mL/min (>60) 07/24/22 06:00 Est GFR (MDRD) Non-Af 82 mL/min (>60) 07/24/22 06:00 BUN/Creatinine Ratio 33.4 RATIO (10-20) H 07/24/22 06:00 Glucose 105 mg/dL (74-106) 07/24/22 09:42 Vancomycin Trough 14.5 ug/mL (5.0-15.0) 07/26/22 09:57 Random Vancomycin 11.0 ug/mL (0.0-15.0) 07/24/22 06:00 Microbiology: Microbiology 07/18/22 13:53 Bone - Sacral Bone Gram Stain - Final 07/18/22 13:53 Bone - Sacral Bone Wound Culture - Final Pseudomonas aeruginosa 07/18/22 13:53 Bone - Sacral Bone Anaerobic Culture - Preliminary No growth in 48 hours. 07/18/22 13:59 Tissue - Sacral Gram Stain - Final 07/18/22 13:59 Tissue - Sacral Wound Culture - Final Presumptive C albicans Enterococcus faecalis Staphylococcus epidermidis Pseudomonas aeruginosa 07/18/22 13:59 Tissue - Sacral Anaerobic Culture - Final Anaerobic cocci 07/16/22 12:30 Blood Culture (Wb) - Right Forearm Blood Culture - Final No growth in 5 days. 07/16/22 14:26 Blood Culture (Wb) - Anticubital Left Blood Culture - Final No growth in 5 days. 07/18/22 14:24 Bone - Ischial Bone Gram Stain - Final 07/18/22 14:24 Bone - Ischial Bone Wound Culture - Final Pseudomonas aeruginosa Presumptive C albicans 07/18/22 14:24 Bone - Ischial Bone Anaerobic Culture - Final No anaerobic bacteria isolated. 07/18/22 14:29 Tissue - Ischial Pressure Sore Gram Stain - Final 07/18/22 14:29 Tissue - Ischial Pressure Sore Wound Culture - Final Enterococcus faecalis Pseudomonas aeruginosa Presumptive C albicans 07/18/22 14:29 Tissue - Ischial Pressure Sore Anaerobic Culture - Final No anaerobic bacteria isolated. 07/17/22 07:45 Wound - Buttock Gram Stain - Final 07/17/22 07:45 Wound - Buttock Wound Culture - Final Presumptive C albicans Weight used for dosin.6 kg Estimated Creatinine Clearance: 60 ml/min Goal Trough: 15-20 mcg/mL Pharmacy Plan for Drug Dosing: Trough today 14.5. Renal stable. Will increase dose to 1250mg iv q12h with goal of getting level 15-20mcg/ml. Trough ordered for before 3rd dose. Pharmacy Service will continue to monitor and adjust dosing as required. Follow-Up Labs: Trough Vancomycin - 5.20.23 @1130 before 1200 dose
[2022-07-26 11:16] LABS: Bedside Glucose 51 mg/dL (74-106)
[2022-07-26] MEDS: Dextrose 50%-Water 25 GM/50 ML DISP.SYRIN IV (11:16)
--- NOTE | 2022-07-26 11:27 | NURSING ---
This RN checked pt's blood glucose level. Glucometer showed level of 51. An order for 12.5mg of D50 injection was obtained by Dr Key. D50 given through pt's midline. Pt sent to surgery. Surgery aware.
[2022-07-26 12:10] LABS: Bedside Glucose 168 mg/dL (74-106)
--- NOTE | 2022-07-26 13:02 | PCM.PN.BLA ---
Progress Note I attempted chest port placement today in the OR. Before making any incisions or injecting anything I examined the right IJ with ultrasound and it appeared to be obliterated. The carotid was in his normal place and had good flow but there seem to be a lot of small collaterals in the space where the jugular should have been. I checked the opposite side and it was the same. At that point the procedure was aborted and the patient will have to be seen by an interventional radiologist to try for alternate sites for central venous access. Roe Gomez MD Pager: [facility] [address] [place] [address], [address] [place] [address] Office:
--- NOTE | 2022-07-26 13:54 | PCM.PN.OB ---
Subjective Subjective nervous about surgery, no chest or sob, no vb Objective Data Objective Data Vital Signs: Vital Signs Temp Pulse Resp BP Pulse Ox O2 Del Method 97.5 F L 88 18 105/65 95 Room Air 07/26/22 13:00 07/26/22 13:00 07/26/22 13:00 07/26/22 13:00 07/26/22 13:00 07/26/22 13:00 Oxygen Delivery Method Room Air Weight: 93 lb 15.729 oz Body Mass Index (BMI) 21.0 Intake & Output: Intake and Output for Last 24 Hours 07/24/22 07/25/22 07/26/22 23:59 23:59 23:59 Intake Total 879 / 1379 1803.85 / 2103.85 540 / 540 Output Total 1300 / 1950 2190 / 2490 1200 / 1200 Balance -421 / -571 -386.15 / -386.15 -660 / -660 Lab / Micro Data Result Diagrams: 07/24/22 06:00 07/24/22 09:42 Labs: Laboratory Results - last 24 hr 07/25/22 16:05: POC Glucose 276 H 07/25/22 21:25: POC Glucose 360 H 07/25/22 21:30: Urine Test Negative 07/26/22 06:18: POC Glucose 193 H 07/26/22 09:57: Vancomycin Trough 14.5 07/26/22 10:54: POC Glucose 51 L 07/26/22 11:46: POC Glucose 168 H Micro: Microbiology 07/18/22 13:53 Bone - Sacral Bone Gram Stain - Final 07/18/22 13:53 Bone - Sacral Bone Wound Culture - Final Pseudomonas aeruginosa 07/18/22 13:53 Bone - Sacral Bone Anaerobic Culture - Final No anaerobic bacteria isolated. 07/18/22 13:59 Tissue - Sacral Gram Stain - Final 07/18/22 13:59 Tissue - Sacral Wound Culture - Final Presumptive C albicans Enterococcus faecalis Staphylococcus epidermidis Pseudomonas aeruginosa 07/18/22 13:59 Tissue - Sacral Anaerobic Culture - Final Anaerobic cocci 07/16/22 12:30 Blood Culture (Wb) - Right Forearm Blood Culture - Final No growth in 5 days. 07/16/22 14:26 Blood Culture (Wb) - Anticubital Left Blood Culture - Final No growth in 5 days. 07/18/22 14:24 Bone - Ischial Bone Gram Stain - Final 07/18/22 14:24 Bone - Ischial Bone Wound Culture - Final Pseudomonas aeruginosa Presumptive C albicans 07/18/22 14:24 Bone - Ischial Bone Anaerobic Culture - Final No anaerobic bacteria isolated. 07/18/22 14:29 Tissue - Ischial Pressure Sore Gram Stain - Final 07/18/22 14:29 Tissue - Ischial Pressure Sore Wound Culture - Final Enterococcus faecalis Pseudomonas aeruginosa Presumptive C albicans 07/18/22 14:29 Tissue - Ischial Pressure Sore Anaerobic Culture - Final No anaerobic bacteria isolated. 07/17/22 07:45 Wound - Buttock Gram Stain - Final 07/17/22 07:45 Wound - Buttock Wound Culture - Final Presumptive C albicans ROS Constitutional Constitutional: Reports systems reviewed and no addt'l complaints, except as documented Cardiovascular Cardiovascular: Reports systems reviewed and no addt'l complaints, except as documented Respiratory/Chest Respiratory/Chest: Reports systems reviewed and no addt'l complaints, except as documented Gastrointestinal Gastrointestinal: Reports systems reviewed and no addt'l complaints, except as documented Physical Exam Const alert, oriented x3 and no apparent distress HEENT Head and Scalp: atraumatic Resp normal respiratory effort GI soft to palpation and non-tender GI Narrative: enlarged fibroid uterus coming up under umbilicus Assessment & Plan (1) Fibroid uterus: COMMENT: discussed low risk for uterine cancer, fibroids will shrink in menopause, may choose to not surgical remove unless desired or symptomatic. FSH and estradiol ordered to evaluate menopausal status-premenopausal range. Pelvic MRI shows nl small ovaries not well seen, enlarged degenerating fibroids. (2) Adnexal mass: COMMENT: pelvic MRI shows fibroids, ovaries not well visualized. pedunculated fibroids suspected PLAN: Plan see a/p comments above, premenopausal fsh estradiol. declining hysterectomy. will sign off and fu as outpatient as needed
--- NOTE | 2022-07-26 16:08 | CASEMGMT ---
Social Work SW spoke with physician who states that IV ATB cannot be changed. SW spoke with nursing who states port placement was not successful. SW met with pt and mother. Pt sleeping soundly. SW spoke with pt mother and offered emotional support. SW updated that IV ATB cannot be changed. Discharge planning is on hold at this time until means of IV ATB administration is determined. MICHELLE Pinto
[2022-07-26 16:45] LABS: Bedside Glucose 120 mg/dL (74-106)
[2022-07-26] MEDS: Glucerna Shake 120 ML LIQUID PO ×2 (17:51→21:04)
--- NOTE | 2022-07-26 18:07 | NURSING ---
Per pharmacy- OK to give vancomycin through midline
[2022-07-26 18:56] LABS: Bedside Glucose 271 mg/dL (74-106)
[2022-07-26] MEDS: FLUoxetine 20 MG Capsule PO (21:04)
[2022-07-26] MEDS: Nystatin Powder 15gm Bottle 1 APPLIC TOPICAL (21:07)
[2022-07-26] MEDS: Insulin Glargine-YFGN 100 UNIT/ML Pen 10 UNIT SC (21:08)
[2022-07-26 22:15] LABS: Bedside Glucose 254 mg/dL (74-106)
[2022-07-27 03:46] VITALS: BP 111/70; PULSE 95; RESP 18; TEMP 36.9; O2SAT 99
[2022-07-27] MEDS: Insulin Lispro 100 UNIT/ML INSULN.PEN SC ×3 (06:12→16:51)
[2022-07-27 06:46] LABS: Bedside Glucose 255 mg/dL (74-106)
[2022-07-27 08:17] VITALS: BP 108/56; PULSE 99; RESP 16; TEMP 36.6; O2SAT 97
[2022-07-27] MEDS: Ferrous Sulfate 325 MG Tablet PO (09:31)
[2022-07-27] MEDS: Fluconazole 100 MG Tablet 200 MG PO (09:32)
[2022-07-27] MEDS: Nystatin Powder 15gm Bottle 1 APPLIC TOPICAL (09:32)
[2022-07-27] MEDS: Enoxaparin 40 MG/0.4 ML Syringe SC (09:32)
[2022-07-27] MEDS: Glucerna Shake 120 ML LIQUID PO ×3 (09:37→16:52)
--- NOTE | 2022-07-27 10:21 | PCM.TXEXTCAR ---
Diet Diet Order/Speech Therapy: 07/18/22 16:10 Diet: Consistent Carb - Calorie Controlled Food consistency:: Regular Liquid Consistency:: Regular/Thin Is pt able to select menu?: Yes How many daily calories?: 1400 calorie Routine Orders/Code Status Suppository Type: Dulcolax 10mg Suppository Frequency: Daily PRN Wound(s) coccyx: Wound Type: Open Surgical Wound Dressing Change: KCI wound VAC right buttocks: Wound Type: Pressure Injury right ischium: Wound Type: Open Surgical Wound Dressing Change: KCI wound VAC right knee: Wound Type: Abrasion Dressing Change: Mepilex Problem/Diagnosis (1) Adnexal mass: Status: Acute Code(s): N94.89 - Other specified conditions associated with female genital organs and menstrual cycle Comment: suspect degenerating pedunculated fibroid, recommend pelvic MRI if able, if not will evaluate at time of surgery. CEA and CA 125 low risk levels. FSH and estradiol-premenopausal range (2) Fibroid uterus: Status: Acute Code(s): D25.9 - Leiomyoma of uterus, unspecified Comment: discussed low risk for uterine cancer, fibroids will shrink in menopause, may choose to not surgical remove unless desired or symptomatic. FSH and estradiol ordered to evaluate menopausal status-premenopausal range. 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 White count is elevated at 16.7 and she is tachycardic consistent with an infection of note her white count has been elevated since April, she was seeing hematology for this and they feel that is likely reactive but wanted outpatient follow-up -Had been at [facility] 10 to 14 days ago and given antibiotics and improved and then once they were completed wound worsened ? Empirically started was on IV Zosyn. ? Patient had wound debridement on 07/[address] Mitchell. 07/23 on IV antibiotics vancomycin and meropenem changed as per sensitivity. Surgical culture shows MR CoNS, Enterococcus, Pseudomonas, resistant to Zosyn and cefepime, Naty albicans. Fluconazole added. Dr. Mccollum talked to the urologist Dr. Marshall once he said patient can be discharged on Ochoa catheter and outpatient urology follow-up for suprapubic catheterization. MRI abdomen pending to get more information on the patient from [facility]. Discussed with Dr. Mitchell. Tentative plan for surgical diverting colostomy on but patient and her mother not eager for surgery now but may be later as an outpatient. 07/24: Peripheral line not working. Several years ago patient had technical failure of PICC line as it could not past through. She wants to try first PICC line before going for tunneled central line. Discussed with ID, surgeon, patient and her mother. Surgeon could not do before for tunnel dialysis catheter but agreeable for trying PICC line first. Single-lumen PICC line ordered. #Pelvic mass -CT 07/16 with 9.1 x 13.1 x 7.3 cm complex solid and cystic mass arising from the pelvis extending towards her abdomen more prominent on the right side and also prominence of the uterus suggesting fibroid uterus. Upon taking over from admitting physician this was reviewed but given read of large heterogenous mass in lower abdomen and pelvis as described with fibroid uterus it seemed that this was described with the fibroid uterus. elvic ultrasound with enlarged heterogenous uterus with multiple leiomyomas and varying stages of degeneration. 07/23: Patient was evaluated by training representative Dr. Young Au. No urgent gynecologic surgery needed. There was a question of a separate mass in the right adnexa that may be due to enlarged right ovary but on the CT there does not appear to be a separate mass and suspect it was an exophytic leiomyoma #DM2: Glucose Accu-Cheks are variable from 75-277. In BMP 175. ? continue with her long-acting insulin ? Accu-Cheks ACHS ? Sliding scale insulin 07/24: Patient had hypoglycemia glucose 30 6 in the morning which came up to 95 after oral glucose treatment. Most recent 229. Glucose very variable. DVT: Lovenox subq Allergies/Procedures Done in Hospital Allergies Latex, Natural Rubber Allergy (Verified 07/17/22 21:24) Hives Type of Care/Length of Stay Estimated LOS: Convalescent Care Less Than 30 days Type of Care Needed: Skilled Rehab Potential: Good Prognosis: Good Additional Orders/Day of Discharge Day of Discharge: 07/25/22 Dietary and Speech Recommendations Dietitian Recommendations/Changes: Continue 1400kcal CHO control diet to manage blood sugars. Continue 120mL Glucerna 4x daily with medpass to provide Continue Shadi BID to promote wound healing if consumed. Discharge Plan Admission Admit Date/Time: 07/16/22 15:37 Primary Reason for Your Visit: Sacral decubitus ulcer. Attending Provider: Lucas Key Primary Care Provider: Cosmo Smith Consulting Providers: Pal Luevano ; Javon Mitchell ; Niels Matrin ; Roe Gomez ; Dionne Gunter ; Devi Lauren Instructions Additional Instructions / Restrictions: DISCHARGE INSTRUCTIONS PLEASE READ *Please take this with you to your next doctors appointment* -Please follow-up with Dr. Marshall upon discharge to evaluate for suprapubic catheter placement. Discharged with indwelling Ochoa catheter. -Please follow-up with plastic surgery upon discharge for your follow-up -Please follow with the wound care clinic upon follow-up -Please call your primary care provider's office upon discharge to schedule a hospital follow up within 1 week. -For any concerning signs or symptoms please call 911 or proceed to the nearest emergency department Discharge Orders/Prescriptions Prescriptions: New fluconazole 100 mg Tablet 200 mg PO DAILY 40 Days Qty: 80 0RF meropenem 1 gram Recon Soln 1 g IV Q8 37 Days Qty: 111 0RF Rx Instructions: stop date 08/29/22 dx: sacral osteo weekly bmp, cbc, LFT, vanc trough, and esr. Fax to [phone] vancomycin in dextrose 5 % 1 gram/200 mL Piggyback 1,000 mg IV Q24H 37 Days Qty: 7400 0RF Rx Instructions: stop date 08/29/22 dx: sacral osteo weekly bmp, cbc, LFT, vanc trough, and esr. Fax to [phone] oxycodone 5 mg Tablet 2.5 mg PO Q4H PRN PRN (Reason: Pain Score 6-10) 3 Days Qty: 7 0RF Rx Instructions: 2.5 mg for moderate pain and 5 mg for severe pain. insulin lispro [Humalog KwikPen Insulin] 100 unit/mL Insulin Pen See Protocol subcut ACHS Qty: 0 0RF Protocol: 6. Sliding Scale Insulin Custom Condition: GLUCOSE LEVEL (mg/dl) range Dose/Route: Number of Units Condition: 141-180 Dose/Route: 7 Condition: 181-220 Dose/Route: 8 Condition: 221-260 Dose/Route: 9 Condition: 261-300 Dose/Route: 10 Condition: 301-340 Dose/Route: 11 Condition: 341-380 Dose/Route: 12 Condition: 381-HIGHER Dose/Route: 13 Protocol Text: Custom Sliding Scale sennosides-docusate sodium [Senna-Time S] 8.6-50 mg tablet 2 tab-cap PO BID PRN (Reason: constipation) Qty: 60 0RF Continued fluoxetine 20 mg capsule 20 mg PO DAILY Qty: 60 1RF (DME) OneTouch Verio test strips Strip See Rx Instructions .Route Qty: 120 5RF Rx Instructions: 4x/day ferrous sulfate 325 mg (65 mg iron) tablet 325 mg PO DAILY Qty: 90 3RF insulin aspart U-100 [Novolog U-100 Insulin aspart] 100 unit/mL solution 6 unit subcut TIDWMEAL MDD 30 Qty: 10 5RF Rx Instructions: +SSI (DME) pen needle, diabetic [BD Ultra-Fine Charla Pen Needle] 32 gauge x 5/32 needle See Rx Instructions .ROUTE .MEDSUPPLY Qty: 400 1RF Rx Instructions: 4 times daily Changed insulin glargine [Lantus Solostar U-100 Insulin] 100 unit/mL (3 mL) insulin pen 10 unit subcut QPM Qty: 15 0RF Discontinued cephalexin 500 mg capsule 500 mg PO 4X/DAY doxycycline monohydrate 100 mg capsule 100 mg PO BID methylprednisolone [Methylpred DP] 4 mg tablets,dose pack 4 mg PO DAILY cephalexin 500 mg capsule 500 mg PO Q6 Qty: 40 0RF Referrals / Follow Up: Roe Gomez MD [Med Staff - Active Staff] - Within 1 Month (If decides for diverting colostomy.) Cosmo Smith MD [Primary Care Provider] - Crystal Marshall MD [Med Staff - Active Staff] - Within 2 Weeks (For evaluation for suprapubic cystostomy) Javon Mitchell MD [Med Staff - Active Staff] - Within 2 Weeks Niels Martin MD [Med Staff - Active Staff] - Within 2 Weeks (As needed for antibiotic.) Dionne Gunter MD [Med Staff - Active Staff] - Within 1 Month (If decides for diverting colostomy and for fibroma.) Disposition Disposition (needs filled in before D/C Order can be placed): Long-Term Facility
--- NOTE | 2022-07-27 11:18 | CASEMGMT ---
Addendum entered by Shanda Joseph 07/27/22 15:30: Social Work SEKOU spoke with Dr. Martin and Dr. Key. Pt's antibiotics will be changed to PO and pt can be discharged at this time. SEKOU spoke with [facility] and updated clinicals faxed. [facility] is able to accept pt today after 6pm. SEKOU met with pt and mother and informed of this. Pt very appreciative and agreeable to discharge plan. 7000 convalescent form completed in [facility]. Transportation arranged with [facility] for 7:00 pick up driver via cot. Idalia, d/c botany laboratory assistant to send d/c info to [facility]. Nursing, pt and [facility] updated on d/c time. Disposition: [facility], skilled level of care MICHELLE Pinto Original Note: Social Work SEKOU spoke with physician. Pt will remain hospitalized over the weekend with followup for IV access next week. SEKOU met with pt and mother and emotional support provided. Discharge planning is on hold at this time until and avenue for IV ATB is established. MICHELLE Pinto
[2022-07-27 11:30] LABS: Bedside Glucose 170 mg/dL (74-106)
[2022-07-27 11:38] VITALS: BP 106/62; PULSE 107; RESP 16; TEMP 36.7; O2SAT 99
--- NOTE | 2022-07-27 12:18 | PCM.PN.ID ---
Physical Exam Narrative Unable to get port. No fever, no nausea. Const alert and no apparent distress General Appearance: cooperative Resp normal air movement and clear to auscultation bilaterally Cardio regular rate and regular rhythm GI soft to palpation, non-tender and non-distended Skin Skin Narrative: wound bandaged ID ID: Route of nutrition/ use of supplements: [] Nutritional Intake: [] IV Site: [] Ochoa Catheter: [] Assessment & Plan Assessment/Plan (1) Spina bifida: (2) Type 1 diabetes mellitus: (3) Osteomyelitis of pelvic region: PLAN: OR 07/18/[address] Mitchell for I&D of ischium and sacrum. Surg cx with MR-CoNS, enterococcus, PsA (R to zosyn/cefepime), anaerobes, c. albicans. 04/2022 had wound cx with PsA and MRSA. Changed to vanc/bing/fluconazole. Ochoa is in place with plans for urology followup. Per pt, she discussed with Dr. Mitchell this AM, and decision was made not to pursue diverting ostomy at this time due to lack of stool contamination of wound. Unable to get picc or tunneled line due to anatomy. Discussed options with her and her mother. Decision made to change to po linezolid, cipro, augmentin, and fluc to cover all of her growth. Last QTC was 430. On low dose SSRI. Stop date 08/29/22. Will do shorter course of the linezolid (10 days). Will follow D/w primary team and immigration case worker, wrote rx, ok for d/c today to [facility]. ID followup in 2-3 weeks.
--- NOTE | 2022-07-27 13:22 | PCM.DC.SUM ---
Providers Date of Admission: 07/16/22 Date of Discharge: 07/27/22 Primary Care Physician: Dr. Cosmo Smith MD Consultations 07/16/22 16:50 Consult: Onc/Wound/backend java developer Routine Comment: Reason for Consult:: Decub Consult: Plastic Surgery Routine Consulting Provider: Javon Mitchell Reason for Consult: Decubitus ulcer EMERGENT Consult: No MD Notified: Yes Date Notified: 07/17/22 Time Notified: 08:16 Method of Notification: office 07/19/22 08:20 Consult: Infectious Disease Routine Consulting Provider: Niels Martin Reason for Consult: R ischial osteo EMERGENT Consult: No MD Notified: Yes Date Notified: 07/19/22 Time Notified: 08:24 Method of Notification: Text 07/20/22 08:27 Consult: General Surgery Routine Consulting Provider: Roe Gomez Reason for Consult: Evaluation for diverting ostomy EMERGENT Consult: No MD Notified: Yes Date Notified: 07/20/22 Time Notified: 08:27 Method of Notification: Verbal 07/20/22 10:50 Consult: [employer] PROFESSOR Routine Consulting Provider: Dionne Gunter Reason for Consult: pelvic mass EMERGENT Consult: No MD Notified: Yes Date Notified: 07/20/22 Time Notified: 10:50 Method of Notification: Verbal 07/27/22 12:10 Consult: Vascular Surgery Routine Consulting Provider: Subhash Coats Reason for Consult: central line access EMERGENT Consult: No MD Notified: Yes Date Notified: 07/27/22 Time Notified: 10:00 Method of Notification: Verbal Reason For Visit: DECUBITUS ULCER WITH WOUND INFECTION Diagnosis Discharge Diagnosis (1) Spina bifida: Status: Acute Code(s): Q05.9 - Spina bifida, unspecified (2) Type 1 diabetes mellitus: Status: Chronic Code(s): E10.9 - Type 1 diabetes mellitus without complications (3) Osteomyelitis of pelvic region: Status: Acute Code(s): M86.9 - Osteomyelitis, unspecified Plan 42-year-old female was admitted with subacute infected decubitus ulcer in sacrum and ischium lesion. Prior to that she was in [facility] for about 2 weeks and was given antibiotic improved. She has a history of spina bifida L5-S1 lesion, wheelchair-bound and variable sensation lower extremity. She was supposed to be doing self cath but was not happening resulting into overflow incontinence skin breakdown. 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 White count is elevated at 16.7 and she is tachycardic consistent with an infection of note her white count has been elevated since April, she was seeing hematology for this and they feel that is likely reactive but wanted outpatient follow-up -Had been at [facility] 10 to 14 days ago and given antibiotics and improved and then once they were completed wound worsened ? Empirically started was on IV Zosyn. ? Patient had wound debridement on 07/[address] Mitchell. 07/23 on IV antibiotics vancomycin and meropenem changed as per sensitivity.? Surgical culture shows MR CoNS, Enterococcus, Pseudomonas, resistant to Zosyn and cefepime,? Naty albicans.? Fluconazole added.? Dr. Mccollum talked to the urologist Dr. Marshall once he said patient can be discharged on Ochoa catheter and outpatient urology follow-up for suprapubic catheterization. MRI abdomen pending to get more information on the patient from [facility].? Discussed with Dr. Mitchell.? Tentative plan for surgical diverting colostomy on but patient and her mother not eager for surgery now but may be later as an outpatient. 07/24: Peripheral line not working.? Several years ago patient had technical failure of PICC line as it could not past through.? She wants to try first PICC line before going for tunneled central line.? Discussed with ID, surgeon, patient and her mother.? Surgeon could not do before for tunnel dialysis catheter but agreeable for trying PICC line first.? Single-lumen PICC line ordered. 07/25: Patient and her mother do not want diverting colostomy now but want to wait until nutrition is built up.? Plastic surgeon recommended diverse and colostomy before reconstructive surgery of decubitus ulcer. Patient had midline.? Antibiotic vancomycin, meropenem and fluconazole prescribed by ID.? Prescription for oxycodone 2.5-5 mg every 6 hourly as needed for moderate to severe pain respectively total 7 tablets given.? Plan for tunneled central venous catheter tomorrow by surgeon.? Hold discharge. ?Patient and her mom said that with the digital pressure on the gluteal/perirectal region she can move bowel.? Senna S, 2 tablet twice daily for constipation 07/26: Patient was taken to the OR by surgeon.? On ultrasound both jugulars are obliterated replaced with lot of a small collaterals.? Procedure was aborted.He recommended to check with the interventional radiologist for alternate site for central venous access.? I checked with ID regarding IV antibiotics and patient needs IV meropenem which cannot be changed to ertapenem because patient has Pseudomonas and wound infection.? Therefore continue IV vancomycin and meropenem 07/27: I talked to interventional radiologist and then vascular surgeon Dr. Subhash Coats. Interventional radiologist does not have an answer for other central venous catheter. Discussed with Dr. Subhash Coats. He said he will evaluate next week but ID is able to change change IV antibiotic to oral therefore we do not need central line. Prescriptions given by ID. Patient discharged on Cipro, Augmentin, linezolid and fluconazole. Last QTc interval 430 ms. #Pelvic mass -CT 07/16 with 9.1 x 13.1 x 7.3 cm complex solid and cystic mass arising from the pelvis extending towards her abdomen more prominent on the right side and also prominence of the uterus suggesting fibroid uterus.? Upon taking over from admitting physician this was reviewed but given read of large heterogenous mass in lower abdomen and pelvis as described with fibroid uterus it seemed that this was described with the fibroid uterus. elvic ultrasound with enlarged heterogenous uterus with multiple leiomyomas and varying stages of degeneration. 07/23: Patient was evaluated by banquet captain Dr. Young Au.? No urgent gynecologic surgery needed. There was a question of a separate mass in the right adnexa that may be due to enlarged right ovary but on the CT there does not appear to be a separate mass and suspect it was an exophytic leiomyoma 07/25: Patient can follow-up with Dr. Young Au as an outpatient for fibroma.? Patient might need removal of fibroma/adnexal mass when plan for diverting colostomy in collaboration with surgeon Dr. Dahl type patient decides for diverting colostomy. 07/27: Pelvic MRI explained to the patient with multiple fibroma in different stages of degeneration. And family declined hysterectomy. She signed off and follow-up as an outpatient. #Labile DM2: Glucose Accu-Cheks are variable from 75-277.? In BMP 175. ? continue with her long-acting insulin ? Accu-Cheks ACHS ? Sliding scale insulin 07/24: ? Patient had hypoglycemia glucose 36 in the morning which came up to 95 after oral glucose treatment.? Most recent 229.? Glucose very variable. 07/25? On Lantus and prandial insulin.? Glucose is variable from hypoglycemia, from 40s to 400s. DVT: Lovenox subq Discharge medication reconciliation done. Discharge follow-up instructions completed. Discharge process discussed with the patient and all questions were answered to patient's satisfaction. Discharged to SNF. Total time spent, exact 35 minutes on discharge meds reconciliation, examination, coordination of care with nurses and ancillary staff, review of imaging and blood test and discussion with the patient on follow-up instructions. Medications at Discharge Home Medications blood sugar diagnostic (OneTouch Verio test strips) #120 ea 05/31/22 fluoxetine 20 mg capsule 20 mg PO DAILY #60 caps 06/21/22 ferrous sulfate 325 mg (65 mg iron) tablet 325 mg PO DAILY #90 tabs 06/22/22 insulin aspart U-100 100 unit/mL subcutaneous solution (Novolog U-100 Insulin aspart) 6 unit (0.06 mL) subcut TIDWMEAL #10 mL 07/16/22 pen needle, diabetic 32 gauge x 5/32 (BD Ultra-Fine Charla Pen Needle) #400 ea 07/16/22 fluconazole 100 mg tablet 200 mg PO DAILY 40 days #80 tabs 07/24/22 insulin glargine 100 unit/mL (3 mL) subcutaneous pen (Lantus Solostar U-100 Insulin) 10 unit (0.1 mL) subcut QPM #15 mL 07/25/22 insulin lispro 100 unit/mL subcutaneous pen (Humalog KwikPen (U-100) Insulin) See Protocol subcut ACHS #0 mL 07/25/22 oxycodone 5 mg tablet 2.5 mg PO Q4H PRN PRN Pain Score 6-10 3 days #7 tabs 07/25/22 sennosides 8.6 mg-docusate sodium 50 mg tablet (Senna-Time S) 2 tab-cap PO BID PRN constipation #60 tabs 07/25/22 amoxicillin 875 mg-potassium clavulanate 125 mg tablet 1 tab PO BID #66 tabs 07/27/22 ciprofloxacin HCl 500 mg tablet (Cipro) 500 mg PO BID #66 tabs 07/27/22 linezolid 600 mg tablet 600 mg PO Q12H 10 days #20 tabs 07/27/22 Physical Exam Narrative No acute issues.? No fever. 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 ? Patient has history of spina bifida L5-S1, wheelchair-bound with lower extremities contracture and muscle atrophy. Physical exam General: Alert, Oriented x3, Cooperative, BMI 21.1 kg/m?, short stature. HEENT: Atraumatic, PERRLA, EOMI, Normocephalic Oral: Oral mucosa moist.? No Gingival or Mucosal Lesions/ Ulcerations Neck: Supple, No JVD, Negative Carotid Bruits Lungs:? Air entry diminished in bilateral lung bases.? No crepitation/rhonchi Cardiovascular: Regular rate, Regular Rhythm, Normal S1, Normal S2, No murmurs Abdomen: Bowel Sounds Present, Soft, Non Tender, Non-Distended : Ochoa catheter.? Chronic urinary incontinence.? No renal angle tenderness.? No suprapubic tenderness. Extremities: Right arm midline.? No edema, Capillary Refill Less than 3 Seconds Skin: Status post incision and drainage of ischium and sacrum. Musculoskeletal: Spina bifida L5-S1.? Wheelchair-bound.? Muscle atrophy of lower extremities with impaired general sensation.? Contracture of lower extremities. Neurological: Cranial nerves II-XII grossly intact,? chronic muscle atrophy of lower extremities and contractures, urinary bladder and general sensation? impairment Psych/Mental Status: Flat affect Weight / BMI Weight Weight: 93 lb 15.729 oz Body Mass Index (BMI) 21.0 ABG / Lab / Microbiology Data Result Diagrams: 07/24/22 06:00 07/24/22 09:42 Laboratory: Laboratory Results - last 24 hr 07/26/22 16:07: POC Glucose 120 H 07/26/22 18:36: POC Glucose 271 H 07/26/22 21:01: POC Glucose 254 H 07/27/22 06:12: POC Glucose 255 H 07/27/22 10:58: POC Glucose 170 H Microbiology: Microbiology 07/18/22 13:53 Other - Other Fungal Culture - Preliminary Naty albicans 07/18/22 13:53 Other - Other Fungal Smear - Final 07/18/22 13:53 Bone - Sacral Bone Gram Stain - Final 07/18/22 13:53 Bone - Sacral Bone Wound Culture - Final Pseudomonas aeruginosa 07/18/22 13:53 Bone - Sacral Bone Anaerobic Culture - Final No anaerobic bacteria isolated. 07/18/22 14:27 Other - Other Fungal Culture - Preliminary Naty albicans 07/18/22 14:27 Other - Other Fungal Smear - Final 07/18/22 13:59 Tissue - Sacral Gram Stain - Final 07/18/22 13:59 Tissue - Sacral Wound Culture - Final Presumptive C albicans Enterococcus faecalis Staphylococcus epidermidis Pseudomonas aeruginosa 07/18/22 13:59 Tissue - Sacral Anaerobic Culture - Final Anaerobic cocci 07/16/22 12:30 Blood Culture (Wb) - Right Forearm Blood Culture - Final No growth in 5 days. 07/16/22 14:26 Blood Culture (Wb) - Anticubital Left Blood Culture - Final No growth in 5 days. 07/18/22 14:24 Bone - Ischial Bone Gram Stain - Final 07/18/22 14:24 Bone - Ischial Bone Wound Culture - Final Pseudomonas aeruginosa Presumptive C albicans 07/18/22 14:24 Bone - Ischial Bone Anaerobic Culture - Final No anaerobic bacteria isolated. 07/18/22 14:29 Tissue - Ischial Pressure Sore Gram Stain - Final 07/18/22 14:29 Tissue - Ischial Pressure Sore Wound Culture - Final Enterococcus faecalis Pseudomonas aeruginosa Presumptive C albicans 07/18/22 14:29 Tissue - Ischial Pressure Sore Anaerobic Culture - Final No anaerobic bacteria isolated. 07/17/22 07:45 Wound - Buttock Gram Stain - Final 07/17/22 07:45 Wound - Buttock Wound Culture - Final Presumptive C albicans Meaningful Use Info Meaningful Use Diagnoses (Choose all that apply): None applicable Discharge Plan Admission Admit Date/Time: 07/16/22 15:37 Primary Reason for Your Visit: Sacral decubitus ulcer. Attending Provider: Lucas Key Primary Care Provider: Cosmo Smith Consulting Providers: Pal Luevano ; Javon Mitchell ; Niels aMrtin ; Roe Gomez ; Dionne Gunter ; Devi Lauren ; Subhash Coats Instructions Additional Instructions / Restrictions: DISCHARGE INSTRUCTIONS PLEASE READ *Please take this with you to your next doctors appointment* -Please follow-up with Dr. Marshall upon discharge to evaluate for suprapubic catheter placement. Discharged with indwelling Ochoa catheter. -Please follow-up with plastic surgery upon discharge for your follow-up -Please follow with the wound care clinic upon follow-up -Please call your primary care provider's office upon discharge to schedule a hospital follow up within 1 week. -For any concerning signs or symptoms please call 911 or proceed to the nearest emergency department Discharge Orders/Prescriptions Prescriptions: New fluconazole 100 mg Tablet 200 mg PO DAILY 40 Days Qty: 80 0RF oxycodone 5 mg Tablet 2.5 mg PO Q4H PRN PRN (Reason: Pain Score 6-10) 3 Days Qty: 7 0RF Rx Instructions: 2.5 mg for moderate pain and 5 mg for severe pain. insulin lispro [Humalog KwikPen Insulin] 100 unit/mL Insulin Pen See Protocol subcut ACHS Qty: 0 0RF Protocol: 6. Sliding Scale Insulin Custom Condition: GLUCOSE LEVEL (mg/dl) range Dose/Route: Number of Units Condition: 141-180 Dose/Route: 7 Condition: 181-220 Dose/Route: 8 Condition: 221-260 Dose/Route: 9 Condition: 261-300 Dose/Route: 10 Condition: 301-340 Dose/Route: 11 Condition: 341-380 Dose/Route: 12 Condition: 381-HIGHER Dose/Route: 13 Protocol Text: Custom Sliding Scale sennosides-docusate sodium [Senna-Time S] 8.6-50 mg tablet 2 tab-cap PO BID PRN (Reason: constipation) Qty: 60 0RF linezolid 600 mg tablet 600 mg PO Q12H 10 Days Qty: 20 0RF Rx Instructions: ok to give with her SSRI ciprofloxacin HCl [Cipro] 500 mg tablet 500 mg PO BID Qty: 66 0RF amoxicillin-pot clavulanate 875-125 mg tablet 1 tab PO BID Qty: 66 0RF Continued fluoxetine 20 mg capsule 20 mg PO DAILY Qty: 60 1RF (DME) OneTouch Verio test strips Strip See Rx Instructions .Route Qty: 120 5RF Rx Instructions: 4x/day ferrous sulfate 325 mg (65 mg iron) tablet 325 mg PO DAILY Qty: 90 3RF insulin aspart U-100 [Novolog U-100 Insulin aspart] 100 unit/mL solution 6 unit subcut TIDWMEAL MDD 30 Qty: 10 5RF Rx Instructions: +SSI (DME) pen needle, diabetic [BD Ultra-Fine Charla Pen Needle] 32 gauge x 5/32 needle See Rx Instructions .ROUTE .MEDSUPPLY Qty: 400 1RF Rx Instructions: 4 times daily Changed insulin glargine [Lantus Solostar U-100 Insulin] 100 unit/mL (3 mL) insulin pen 10 unit subcut QPM Qty: 15 0RF Discontinued cephalexin 500 mg capsule 500 mg PO 4X/DAY doxycycline monohydrate 100 mg capsule 100 mg PO BID methylprednisolone [Methylpred DP] 4 mg tablets,dose pack 4 mg PO DAILY cephalexin 500 mg capsule 500 mg PO Q6 Qty: 40 0RF Referrals / Follow Up: Roe Gomez MD [Med Staff - Active Staff] - Within 1 Month (If decides for diverting colostomy.) Cosmo Smith MD [Primary Care Provider] - Crystal Marshall MD [Med Staff - Active Staff] - Within 2 Weeks (For evaluation for suprapubic cystostomy) Javon Mitchell MD [Med Staff - Active Staff] - Within 2 Weeks Niels Martin MD [Med Staff - Active Staff] - Within 2 Weeks (As needed for antibiotic.) Dionne Gunter MD [Med Staff - Active Staff] - Within 1 Month (If decides for diverting colostomy and for fibroma.) Disposition Disposition (needs filled in before D/C Order can be placed): [facility] Facility Charges/Coding Visit Charges Inpatient E&M: 72076 Disch Hosp >30min
--- NOTE | 2022-07-27 15:33 | CASEMGMT ---
Discharge Planning Discharge orders, med list/scripts, 92220, and pickup time sent to [facility] via [email or web address]. Nursing and patient notified. Idalia Farr
--- NOTE | 2022-07-27 15:57 | CASEMGMT ---
Discharge Planning Wound Vac order sent to [facility] via [facility]. Idalia Farr
[2022-07-27 16:16] VITALS: BP 117/56; PULSE 106; RESP 16; TEMP 36.6; O2SAT 97
[2022-07-27 16:31] LABS: Bedside Glucose 160 mg/dL (74-106)
== END 2022-07-27 19:09 | disposition skilled nursing facility (03) | DRG 580 ==
LOC: ED 14:50 → MS3 15:37
PROVIDERS: Anesthesiology; Hospitalist; Internal Medicine; Internal Medicine Infectious Disease; Obstetrics & Gynecology; Surgery; Admitting Provider Family Medicine; Emergency Provider Emergency Medicine; PCP Internal Medicine; Visit Provider Internal Medicine
PROC: 0QB10ZZ Excision of Sacrum, Open Approach (ICD-10-PCS; principal; 2022-07-18 12:15)
DX: L89.154 Pressure ulcer of sacral region, stage 4 (principal); M86.8X8 Other osteomyelitis, other site; D62 Acute posthemorrhagic anemia; G82.20 Paraplegia, unspecified; I96 Gangrene, not elsewhere classified; L03.312 Cellulitis of back [any part except buttock and flank]; L89.214 Pressure ulcer of right hip, stage 4; E10.620 Type 1 diabetes mellitus with diabetic dermatitis; E10.69 Type 1 diabetes mellitus with other specified complication; D63.8 Anemia in other chronic diseases classified elsewhere; E10.65 Type 1 diabetes mellitus with hyperglycemia; Q05.7 Lumbar spina bifida without hydrocephalus; Z79.4 Long term (current) use of insulin; E78.00 Pure hypercholesterolemia, unspecified; B37.9 Candidiasis, unspecified; D25.9 Leiomyoma of uterus, unspecified; Z99.3 Dependence on wheelchair; R32 Unspecified urinary incontinence; B96.5 Pseudomonas (aeruginosa) (mallei) (pseudomallei) as the cause of diseases classified elsewhere; Z79.899 Other long term (current) drug therapy; Z98.2 Presence of cerebrospinal fluid drainage device; R19.00 Intra-abdominal and pelvic swelling, mass and lump, unspecified site; R53.83 Other fatigue
CPT/HCPCS: 36415; 71045; 72193; 72197; 76856; 80048; 80053; 80202; 81001; 81025; 82009; 82378; 82670; 82803; 82947; 82962; 83001; 83036; 83605; 84134; 85025; 85610; 85652; 85730; 86140; 86141; 86304; 86850; 86900; 86901; 86920; 86922; 87040; 87070; 87075; 87077; 87102; 87176; 87186; 87205; 87206; 87426; 88305; 88307; 88311; 93005; 96360; 97110; 97162; 97166; 97530; 97535; 97802; 99283; 99284; A9575; J2185; J7030; J7040; J7050; J7120; P9016; P9612; Q9967; A4216; J2405

== ENCOUNTER → 2022-09-05 | Outpatient (REF) | payer SELFPAY ==
[2022-09-05 10:14] LABS: Absolute Lymphocyte Count 1.43 X10^3/uL (0.83-4.51); Absolute Neutrophil Count 3.9 X10^3/uL (2.0-7.7); Basophil# 0.03 X10^3/uL; Basophil% 0.5 % (0-1); Eosinophil# 0.42 X10^3/uL; Eosinophils% 6.6 % (0-5); Hematocrit 29.9 % (37-47); Hemoglobin 9.1 g/dL (12.0-15.0); Lymphocyte # 1.43 X10^3/ul (0.83-4.51); Lymphocyte % 22.6 % (19-41); Mean Corp Hgb Conc 30.4 g/dL (32-36); Mean Corpuscular Hgb 28.9 pg (27.0-32.0); Mean Corpuscular Volume 94.9 fL (81-99); Mean Platelet Vol. 9.3 fl (6.2-12.0); Monocyte% 7.9 % (0-10); NRBC Flagged by Analyzer 0 % (0-5); Neutrophil # 3.89 X10^3/uL (2.7-7.7); Neutrophil % 61.6 % (47-70); Platelet Count 315 K/mm3 (150-450); RBC Distribution Width CV 15.3 % (11.6-14.6); RBC Distribution Width SD 52.6 fl (35.1-43.9); Red Blood Count 3.15 M/mm3 (4.2-5.4); White Blood Count 6.3 K/mm3 (4.4-11.0)
[2022-09-05 10:29] LABS: ALB/GLOB Ratio 0.7 RATIO (0.9-2.4); AST(SGOT) 19 U/L (15-37); Alanine Aminotransfer ALT/SGPT 35 U/L (13-56); Albumin, Serum 2.2 g/dL (3.2-5.0); Alkaline Phosphatase 114 U/L (45-117); Anion Gap 3 (5-15); BUN 29 mg/dL (7-18); BUN/Creat Ratio 37.2 RATIO (10-20); Chloride 113 mmol/L (98-107); Creatinine, Serum 0.78 mg/dL (0.55-1.02); EST Glomerular Filtration Rate 86 mL/min (>60); Est Glom Filt Rate - Afr Amer 104 mL/min (>60); Glucose 131 mg/dL (74-106); Potassium 4.2 mmol/L (3.5-5.1); Protein, Total 5.2 g/dL (6.4-8.2); Sodium Level 142 mmol/L (136-145)
[2022-09-05 10:51] LABS: Hemoglobin A1c 5.6 % (3.8-5.6)
== END ==
LOC: OLS.WHLTCC 06:40
PROVIDERS: PCP Internal Medicine; Visit Provider Internal Medicine
DX: M86.169 Other acute osteomyelitis, unspecified tibia and fibula (principal); Q05.7 Lumbar spina bifida without hydrocephalus; L89.154 Pressure ulcer of sacral region, stage 4; L89.314 Pressure ulcer of right buttock, stage 4; M62.561 Muscle wasting and atrophy, not elsewhere classified, right lower leg; Z79.899 Other long term (current) drug therapy
CPT/HCPCS: 80053; 83036; 85025; 86140

== ENCOUNTER 2022-09-24 09:34 | Emergency (ER) | payer MEDICARE, MEDICAID, SELFPAY ==
[2022-09-24 09:35] VITALS: BP 138/64; PULSE 71; RESP 17; TEMP 36.5; O2SAT 100; BMI 24.0
[2022-09-24 09:45] VITALS: PULSE 73; O2SAT 100
[2022-09-24 09:46] VITALS: BP 135/62
--- NOTE | 2022-09-24 09:47 | EX.ED.DYSGE1 ---
HPI History of Present Illness Chief Complaint: Abn Labs Detail of Chief Complaint: Anemia Informant: patient Narrative Narrative: Patient sent in from [facility] secondary to anemia. She reportedly had routine blood work this morning that revealed hemoglobin of 5.4. 1 week ago her hemoglobin was 11.5. Patient states she feels well and has no obvious source of blood loss. [facility] Medical History Acute postoperative anemia due to expected blood loss Anemia Anemia of chronic disease Anxiety and depression Buttock wound Cancer Decubitus ulcer Decubitus ulcer of coccyx, stage 2 Decubitus ulcer of right buttock, stage 3 Diabetes Diabetes mellitus treated with insulin Difficulty transferring Health care maintenance High cholesterol History of MRSA infection Insulin dependent diabetes mellitus Leukocytosis Medulloblastoma Methicillin resistant Staphylococcus epidermidis infection Osteomyelitis of right side of pelvis Pressure ulcer of sacral region, stage 4 Pressure ulcer of sacral region, unstageable 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, stage 4 Skin necrosis Spina bifida of lumbar spine Type 1 diabetes mellitus Urinary incontinence Vertigo Home Medications blood sugar diagnostic (OneTouch Verio test strips) #120 ea 05/31/22 [Rx Last Taken Unknown] fluoxetine 20 mg capsule 20 mg PO DAILY #60 caps 06/21/22 [Rx Last Taken Unknown] ferrous sulfate 325 mg (65 mg iron) tablet 325 mg PO DAILY #90 tabs 06/22/22 [Rx Last Taken Unknown] insulin aspart U-100 100 unit/mL subcutaneous solution (Novolog U-100 Insulin aspart) 6 unit (0.06 mL) subcut TIDWMEAL #10 mL 07/16/22 [Rx Last Taken Unknown] pen needle, diabetic 32 gauge x 5/32 (BD Ultra-Fine Charla Pen Needle) #400 ea 07/16/22 [Rx Last Taken Unknown] fluconazole 100 mg tablet 200 mg (2 x 100 mg) PO DAILY 40 days #80 tabs 07/24/22 [Rx Last Taken Unknown] insulin glargine 100 unit/mL (3 mL) subcutaneous pen (Lantus Solostar U-100 Insulin) 10 unit (0.1 mL) subcut QPM #15 mL 07/25/22 [Rx Last Taken Unknown] insulin lispro 100 unit/mL subcutaneous pen (Humalog KwikPen (U-100) Insulin) See Protocol subcut ACHS #0 mL 07/25/22 [Rx Last Taken Unknown] oxycodone 5 mg tablet 2.5 mg (1/2 x 5 mg) PO Q4H PRN PRN Pain Score 6-10 3 days #7 tabs 07/25/22 [Rx Last Taken Unknown] sennosides 8.6 mg-docusate sodium 50 mg tablet (Senna-Time S) 2 tab-cap (2 x 8.6-50 mg) PO BID PRN constipation #60 tabs 07/25/22 [Rx Last Taken Unknown] amoxicillin 875 mg-potassium clavulanate 125 mg tablet 1 tab PO BID #66 tabs 07/27/22 [Rx Last Taken Unknown] ciprofloxacin HCl 500 mg tablet (Cipro) 500 mg PO BID #66 tabs 07/27/22 [Rx Last Taken Unknown] linezolid 600 mg tablet 600 mg PO Q12H 10 days #20 tabs 07/27/22 [Rx Last Taken Unknown] Allergy/AdvReac Type Severity Reaction Status Date / Time Latex, Natural Rubber Allergy Hives Verified 09/24/22 09:38 Family History Other Cancer Diabetes FH: defects Surgical History History of brain surgery History of release of tendon Status post repair of complex wound Social History Smoking Status: Never smoker alcohol intake: current alcohol intake frequency: holidays/special occasions only Alcohol type: wine substance use type: does not use do you feel safe at home: Yes ROS ROS ED Constitutional Constitutional ED: Denies chills or fever(s) Eyes Eyes: Denies change in vision or discharge from eye(s) ENT ENT ED: Denies discharge from eye(s), rhinorrhea or sore throat Cardiovascular Cardiovascular: Denies chest pain or palpitations Respiratory/Chest Respiratory/Chest: Denies cough or dyspnea Gastrointestinal Gastrointestinal: Denies abdominal pain, diarrhea, nausea or vomiting Genitourinary Genitourinary ED: Denies dysuria Musculoskeletal Musculoskeletal: Denies back pain Integumentary Denies Abrasions or rash Neurologic Neurologic: Denies headache(s) or weakness Psychiatric Psychiatric: Denies anxiety or depression Allergic/Immunologic Allergic/Immunologic ED: Denies lip swelling or urticaria EXAM Physical Exam Const Vital Signs: 09/24/22 09:35 09/24/22 09:44 09/24/22 09:45 Temperature 97.7 F L Temperature Source Oral Pulse Rate 71 73 Respiratory Rate 17 Respiratory Effort Normal Non-Labored Blood Pressure 138/64 H Blood Pressure Mean 88 Pulse Ox 100 100 Oxygen Delivery Method Room Air Room Air 09/24/22 09:46 09/24/22 11:35 Temperature Temperature Source Pulse Rate 83 Respiratory Rate 20 H Respiratory Effort Blood Pressure 135/62 H 112/54 L Blood Pressure Mean 86 73 Pulse Ox 97 Oxygen Delivery Method Room Air Positive well nourished and well developed General Appearance ED: well developed HEENT Reports moist mucous membranes Eyes PERRL and EOMs intact bilaterally Chest Wall palpation of chest normal Chest Narrative: PICC line in left upper chest. Resp normal respiratory effort and clear to auscultation bilaterally Cardio regular rate and regular rhythm GI non-tender GI Narrative: Ostomy bag filled with semisolid stool. No obvious blood. Palpation: soft Neuro oriented x3 Sensorium / Orientation: alert Psych mental status grossly normal MDM MDM MDM Narrative Medical decision making narrative: Lab work was repeated to ensure accuracy. Type and screen was sent. Because patient did have stool in her ostomy bag this was sent for stool guaiac. Lab Data Attestation: I reviewed the patient's lab results. Labs: Laboratory Results - last 24 hr 09/24/22 09/24/22 10:22 11:20 WBC 6.0 RBC 4.08 L Hgb 11.6 L Hct 37.1 MCV 90.9 D MCH 28.4 MCHC 31.3 L D RDW Std Deviation 43.6 RDW Coeff of Maurizio 13.2 Plt Count 189 MPV 9.4 Immature Gran % (Auto) 0.200 Neut % (Auto) 65.3 Lymph % (Auto) 20.9 Pender % (Auto) 8.0 Eos % (Auto) 4.9 Baso % (Auto) 0.7 Absolute Neuts (auto) 3.9 Absolute Lymphs (auto) 1.25 Nucleated RBC % 0 PT 12.7 INR 1.0 APTT 22.2 L Sodium 139 Potassium 3.8 Chloride 111 H Carbon Dioxide 21.0 Anion Gap 7 BUN 16 Creatinine 0.63 Estim Creat Clear Calc 88.52 Est GFR (MDRD) Af Amer 132 Est GFR (MDRD) Non-Af 109 BUN/Creatinine Ratio 25.4 H Glucose 219 H Calcium 8.3 L POC Glucose 196 H Treatment and Re-Evaluation :: CBC reveals normal white count at 6.0 with a hemoglobin 11.6. This is consistent with her values from a week ago. Her platelet count is 189,000. Chemistry studies and LFTs are unremarkable. Coags are normal. Patient's stool guaiac did return positive. I did speak with nurse practitioner caring for the patient at the care facility. She states that she was not aware that there have been problems with drawing the blood off the PICC line until after the patient had been sent. She is comfortable with the patient returning back to the facility. She states that the patient recently had this ostomy placed and she is not surprised that there is some blood in the stool but they will closely monitor this. Discharge Plan Triage Chief Complaint: Abn Labs Other Complaint: GI Bleed ED Provider: Brea Goode Dx/Rx/DC Orders Clinical Impression: Anemia, mild Instructions: ED Anemia, Type Not Specified (Adult) Prescriptions: No Action fluoxetine 20 mg capsule 20 mg PO DAILY Qty: 60 1RF fluconazole 100 mg Tablet 200 mg PO DAILY 40 Days Qty: 80 0RF oxycodone 5 mg Tablet 2.5 mg PO Q4H PRN PRN (Reason: Pain Score 6-10) 3 Days Qty: 7 0RF Rx Instructions: 2.5 mg for moderate pain and 5 mg for severe pain. insulin lispro [Humalog KwikPen Insulin] 100 unit/mL Insulin Pen See Protocol subcut ACHS Qty: 0 0RF Protocol: 6. Sliding Scale Insulin Custom Condition: GLUCOSE LEVEL (mg/dl) range Dose/Route: Number of Units Condition: 141-180 Dose/Route: 7 Condition: 181-220 Dose/Route: 8 Condition: 221-260 Dose/Route: 9 Condition: 261-300 Dose/Route: 10 Condition: 301-340 Dose/Route: 11 Condition: 341-380 Dose/Route: 12 Condition: 381-HIGHER Dose/Route: 13 Protocol Text: Custom Sliding Scale sennosides-docusate sodium [Senna-Time S] 8.6-50 mg tablet 2 tab-cap PO BID PRN (Reason: constipation) Qty: 60 0RF insulin glargine [Lantus Solostar U-100 Insulin] 100 unit/mL (3 mL) insulin pen 10 unit subcut QPM Qty: 15 0RF linezolid 600 mg tablet 600 mg PO Q12H 10 Days Qty: 20 0RF Rx Instructions: ok to give with her SSRI ciprofloxacin HCl [Cipro] 500 mg tablet 500 mg PO BID Qty: 66 0RF amoxicillin-pot clavulanate 875-125 mg tablet 1 tab PO BID Qty: 66 0RF (DME) OneTouch Verio test strips Strip See Rx Instructions .Route Qty: 120 5RF Rx Instructions: 4x/day ferrous sulfate 325 mg (65 mg iron) tablet 325 mg PO DAILY Qty: 90 3RF insulin aspart U-100 [Novolog U-100 Insulin aspart] 100 unit/mL solution 6 unit subcut TIDWMEAL MDD 30 Qty: 10 5RF Rx Instructions: +SSI (DME) pen needle, diabetic [BD Ultra-Fine Charla Pen Needle] 32 gauge x 5/32 needle See Rx Instructions .ROUTE .MEDSUPPLY Qty: 400 1RF Rx Instructions: 4 times daily Primary Care Provider: Cosmo Smith Referrals: Cosmo Smith MD [Primary Care Provider] - 1 Week Disposition Disposition: Home, Self Care
--- NOTE | 2022-09-24 09:58 | ED.RN ---
pt arrives with picc in lt chest. red lumen appears clogged with blood. purple lumen flushes but will not draw blood. provider aware.
[2022-09-24 10:40] LABS: Bedside Glucose 196 mg/dL (74-106)
[2022-09-24] MEDS: Insulin Lispro 100 UNIT/ML INSULN.PEN SC (10:46)
[2022-09-24 11:35] VITALS: BP 112/54; PULSE 83; RESP 20; O2SAT 97
[2022-09-24 11:37] LABS: Absolute Lymphocyte Count 1.25 X10^3/uL (0.83-4.51); Absolute Neutrophil Count 3.9 X10^3/uL (2.0-7.7); Basophil# 0.04 X10^3/uL; Basophil% 0.7 % (0-1); Eosinophil# 0.29 X10^3/uL; Eosinophils% 4.9 % (0-5); Hematocrit 37.1 % (37-47); Hemoglobin 11.6 g/dL (12.0-15.0); Lymphocyte # 1.25 X10^3/ul (0.83-4.51); Lymphocyte % 20.9 % (19-41); Mean Corp Hgb Conc 31.3 g/dL (32-36); Mean Corpuscular Hgb 28.4 pg (27.0-32.0); Mean Corpuscular Volume 90.9 fL (81-99); Mean Platelet Vol. 9.4 fl (6.2-12.0); Monocyte# 0.48 X10^3/uL; NRBC Flagged by Analyzer 0 % (0-5); Neutrophil % 65.3 % (47-70); Platelet Count 189 K/mm3 (150-450); RBC Distribution Width CV 13.2 % (11.6-14.6); RBC Distribution Width SD 43.6 fl (35.1-43.9); Red Blood Count 4.08 M/mm3 (4.2-5.4)
[2022-09-24 11:43] LABS: Prothrombin Time (Protime)PT. 12.7 SECONDS (11.7-14.9)
[2022-09-24 11:44] LABS: Partial Thromboplast Time 22.2 Seconds (24.1-36.2)
[2022-09-24 11:47] LABS: Anion Gap 7 (5-15); BUN 16 mg/dL (7-18); BUN/Creat Ratio 25.4 RATIO (10-20); Calcium,Total 8.3 mg/dL (8.5-10.1); Chloride 111 mmol/L (98-107); Creatinine, Serum 0.63 mg/dL (0.55-1.02); EST Glomerular Filtration Rate 109 mL/min (>60); Est Glom Filt Rate - Afr Amer 132 mL/min (>60); Estimated Creatinine Clearance 88.52 ml/min; Glucose 219 mg/dL (74-106); Potassium 3.8 mmol/L (3.5-5.1); Sodium Level 139 mmol/L (136-145)
--- NOTE | 2022-09-24 13:25 | ED.RN ---
NURSE TO NURSE REPORT GIVEN TO DEISY AT [facility]. THIS RN DISCUSSED THE INCONSISTENCY IN LAB VALUES, INCLUDING POSSIBILITY OF SAMPLE BEING DILUTED OR DRAWN FROM DIFFERENT PT.
== END 2022-09-24 13:34 | disposition home or self-care (01) ==
PROVIDERS: Emergency Provider Emergency Medicine; PCP Internal Medicine; Visit Provider Emergency Medicine
DX: D64.9 Anemia, unspecified (principal); E10.9 Type 1 diabetes mellitus without complications; Z79.4 Long term (current) use of insulin; K92.2 Gastrointestinal hemorrhage, unspecified
CPT/HCPCS: 80048; 82274; 82962; 85025; 85610; 85730; 86850; 86900; 86901; 99285; J2997; J7040; A4216

== ENCOUNTER 2023-03-21 10:39 | Day surgery (SDC) | payer MEDICARE, MEDICAID, SELFPAY ==
[2023-03-21] MEDS: Lactated Ringers 1,000 ML 15 ML IV (11:20)
[2023-03-21 11:22] VITALS: BP 138/69; PULSE 88; RESP 18; TEMP 37.1; O2SAT 100; BMI 30.5
[2023-03-21 11:49] LABS: Bedside Glucose 102 mg/dL (74-106)
--- NOTE | 2023-03-21 12:01 | DCINST_ITS ---
Discharge Instructions Diet Discharge Diet: No restrictions Activity Discharge Activity: Return to Normal Activity Dressing / Incision Call your doctor if your incision/area has: Continuous Slow Oozing, Sudden Increased Bleeding, Increased Pain/ Swelling, Increased Redness, Foul Smelling Discharge and Swelling at the incision site Call your doctor if you observe: Fever of 101 or Higher Cleanse incision/area with: Keep Dressing Clean & Dry Follow Up Care Please Follow Up With: Crystal Marshall MD When: The office will call to make arrangements for her to be seen for suprapubic tube change in the office in 4 weeks. Test Results: Test results from this visit will be discussed in further detail at your follow- up appointment, if applicable. Discharge Plan Admission Attending Provider: Crystal Marshall Primary Care Provider: Cosmo Smith Consulting Providers: Rodney Wyatt Discharge Orders/Prescriptions Prescriptions: Continued (DME) Dexcom G6 Transmitter Device See Rx Instructions .Route Qty: 1 0RF Rx Instructions: 1 transmitter q 90 days (DME) insulin syringe-needle U-100 [BD Insulin Syringe Ultra-Fine] 0.3 mL 31 gauge x 5/16 syringe See Rx Instructions .Route Qty: 100 3RF Rx Instructions: daily oxybutynin chloride 10 mg tablet extended release 24hr 10 mg PO DAILY Patient Comments: take 1 tablet by mouth every morning cephalexin 500 mg capsule 500 mg PO Q8H Patient Comments: take 1 capsule by mouth three times a day insulin aspart U-100 [Novolog U-100 Insulin aspart] 100 unit/mL solution 6 unit subcut TID Patient Comments: PT CARB COUNTS TO DO A SLIDING SCALE insulin glargine [Lantus U-100 Insulin] 100 unit/mL solution 15 unit subcut QHS meloxicam 7.5 mg tablet 7.5 mg PO DAILY PRN (Reason: pain) (DME) OneTouch Verio test strips Strip See Rx Instructions .Route Qty: 120 5RF Rx Instructions: 4x/day (DME) pen needle, diabetic [BD Ultra-Fine Charla Pen Needle] 32 gauge x 5/32 needle See Rx Instructions .ROUTE .MEDSUPPLY Qty: 400 1RF Rx Instructions: 4 times daily ferrous sulfate 325 mg (65 mg iron) tablet 325 mg PO DAILY Qty: 90 0RF folic acid 1 mg tablet 1 mg PO DAILY Qty: 90 3RF Referrals / Follow Up: Cosmo Smith MD [Primary Care Provider] - Disposition Disposition (needs filled in before D/C Order can be placed): Home, Self Care
[2023-03-21] MEDS: Cefazolin 2 GM in 0.9% Normal Saline (100mL Bag) 100 ML IV (12:03)
--- NOTE | 2023-03-21 12:04 | OP.PCM_ITS ---
Report of Operation Date of Procedure: 03/21/23 Pre-Operative Diagnosis: neurogenic bladder with urinary retention Post-Operative Diagnosis: same Surgery/Procedure Performed:: cystoscopy with insertion suprapubic tube Surgeon: Crystal Marshall Type of Anesthesia: MAC Description of Procedure: Patient is a 43-year-old female with spina bifida and her previous suprapubic tube fell out and was unable to be replaced. She presents for cystoscopy with replacement of her suprapubic tube. Informed consent was obtained. We discussed preoperatively that this would not necessarily be an easy case s econdary to her anatomy, colostomy previous surgeries etc. the patient was taken to the operating room and placed on the operating room table in a supine position. Anesthesia monitored the head, neck, airway, IV access, vital signs throughout the case. Once anesthesia was appropriately administered, the patient was placed into dorsolithotomy position was prepped and draped in usual sterile fashion. The indwelling urethral Levine was removed prior to prepping the patient. The area surrounding the incision in the suprapubic area was injected submucosally with lidocaine. The cystoscope was inserted through the urethra under direct visualization into the urinary bladder. The bladder was filled with saline and palpation of the suprapubic insertion site was visible at the dome. At this time a spinal needle was inserted and was visualized in the appropriate position. An incision was made around the spinal needle. There was difficulty with insertion of the suprapubic insertion trocar and the incision was increased in size down to the fascia. The trocar was then inserted through the bladder with some difficulty secondary to the bladder thickness. The location was closer to the pubic bone then I preferred, however it was difficult to insert and with her anatomy and previous surgical interventions, the decision was made to leave the suprapubic tube in the site. The latex free 16 Kazakh Levine catheter was inserted through the trocar into the urinary bladder and 10 cc was used to fill the balloon. The subcuticular tissue was brought together with a 3-0 Vicryl interrupted suture on each side. A silk suture was used to secure the suprapubic tube into position. A drain sponge was applied. Urine was appropriately draining into the suprapubic bag. The patient was then yareli kened and taken to the recovery room in good condition. There were no complications during this procedure. Grafts/Implants Used: 16Fr levine catheter Complications none Admit VTE Documentation VTE Present on Admission: Yes VTE Mechan Device Prophylaxis: SCD's VTE Pharm Prophylaxis ordered?: No Reason prophylaxis not ordered:: Treatment Not Indicated
[2023-03-21] MEDS: Lidocaine 1% /Epi 1:100 (20ml) 20 ML Vial (13:01)
[2023-03-21 13:06] VITALS: BP 112/73; BP 138/69; PULSE 92; RESP 16; TEMP 36.2; O2SAT 100
[2023-03-21 13:10] VITALS: BP 138/69; BP 142/52; PULSE 102; RESP 16; O2SAT 100
[2023-03-21 13:15] VITALS: BP 132/54; BP 138/69; PULSE 90; RESP 16; O2SAT 98
[2023-03-21 13:20] VITALS: BP 131/90; BP 138/69; PULSE 90; RESP 16; TEMP 36.4; O2SAT 99
[2023-03-21] MEDS: Acetaminophen 325 MG Tablet 650 MG PO (13:37)
[2023-03-21 14:45] VITALS: BP 135/82; BP 138/69; PULSE 82; RESP 17; TEMP 36.8; O2SAT 95
== END 2023-03-21 14:52 | disposition home or self-care (01) ==
LOC: SDC 10:40 → AC 10:42
PROVIDERS: PCP Internal Medicine; Referring Provider Urology; Visit Provider Urology
PROC: 0T9B40Z Drainage of Bladder with Drainage Device, Percutaneous Endoscopic Approach (ICD-10-PCS; CPT 52005; principal; 2023-03-21 12:00)
DX: N31.9 Neuromuscular dysfunction of bladder, unspecified (principal); Z93.3 Colostomy status; Q05.7 Lumbar spina bifida without hydrocephalus; E10.40 Type 1 diabetes mellitus with diabetic neuropathy, unspecified; Z79.4 Long term (current) use of insulin; R33.8 Other retention of urine; K59.2 Neurogenic bowel, not elsewhere classified; F32.A Depression, unspecified; F41.9 Anxiety disorder, unspecified; Z79.899 Other long term (current) drug therapy
CPT/HCPCS: 51710; 00910; 82962; J7120; J2405

== ENCOUNTER → 2023-03-27 | Outpatient (CLI) | payer MEDICARE, MEDICAID, SELFPAY ==
[2023-03-27 16:52] LABS: ALB/GLOB Ratio 0.9 RATIO (0.9-2.4); AST(SGOT) 12 U/L (15-37); Absolute Lymphocyte Count 1.33 X10^3/uL (0.83-4.51); Absolute Neutrophil Count 7.8 X10^3/uL (2.0-7.7); Alanine Aminotransfer ALT/SGPT 16 U/L (13-56); Albumin, Serum 3.6 g/dL (3.2-5.0); Alkaline Phosphatase 98 U/L (45-117); Anion Gap 5 (5-15); BUN 14 mg/dL (7-18); Basophil# 0.03 X10^3/uL; Basophil% 0.3 % (0-1); Calcium,Total 9.3 mg/dL (8.5-10.1); Chloride 107 mmol/L (98-107); Creatinine, Serum 0.74 mg/dL (0.55-1.02); EST Glomerular Filtration Rate 91 mL/min (>60); Eosinophil# 0.23 X10^3/uL; Eosinophils% 2.3 % (0-5); Est Glom Filt Rate - Afr Amer 110 mL/min (>60); Globulin 4.1 g/dL (2.2-4.2); Glucose 65 mg/dL (74-106); Hematocrit 40.6 % (37-47); Lymphocyte # 1.33 X10^3/ul (0.83-4.51); Lymphocyte % 13.2 % (19-41); Mean Corpuscular Hgb 28.4 pg (27.0-32.0); Mean Corpuscular Volume 88.8 fL (81-99); Mean Platelet Vol. 9.5 fl (6.2-12.0); Monocyte# 0.68 X10^3/uL; Monocyte% 6.8 % (0-10); NRBC Flagged by Analyzer 0 % (0-5); Neutrophil # 7.78 X10^3/uL (2.7-7.7); Neutrophil % 77.2 % (47-70); Platelet Count 244 K/mm3 (150-450); Potassium 4.2 mmol/L (3.5-5.1); Protein, Total 7.7 g/dL (6.4-8.2); RBC Distribution Width CV 13.1 % (11.6-14.6); RBC Distribution Width SD 42.2 fl (35.1-43.9); Red Blood Count 4.57 M/mm3 (4.2-5.4); Sodium Level 139 mmol/L (136-145); White Blood Count 10.1 K/mm3 (4.4-11.0)
[2023-03-27 17:27] LABS: Erythrocyte Sedimentation Rate 27 mm/hr (0-30)
[2023-03-29 11:08] LABS: ANTINUCLEAR ANTIBODIES DIRECT Negative (Negative)
[2023-03-29 12:09] LABS: CCP IgG Antibodies 5 units (0-19)
== END | disposition home or self-care (01) ==
LOC: BIMLAB 14:59
PROVIDERS: PCP Internal Medicine; Visit Provider Internal Medicine
DX: F32.A Depression, unspecified (principal); Q05.7 Lumbar spina bifida without hydrocephalus; F41.9 Anxiety disorder, unspecified; M19.90 Unspecified osteoarthritis, unspecified site
CPT/HCPCS: 36415; 80053; 85025; 85652; 86038; 86200; 86225; 86235; 86431

== ENCOUNTER → 2023-04-04 | Outpatient (CLI) | payer MEDICARE, MEDICAID, SELFPAY ==
--- NOTE | 2023-04-04 12:38 | BI_ITS ---
MAMMOGRAPHY - BILATERAL SCREENING REASON FOR EXAM: Female, 43 years old. Routine annual screening examination. PERTINENT HISTORY: Non-contributory. TECHNIQUE: Digital bilateral breast jorge (3D mammographic acquisition) in the CC and MLO projections. 2-D mediolateral oblique (MLO) and craniocaudad (CC) views of both breasts were obtained. CAD: Full Field Digital Mammography with Computer Added Detection was performed. COMPARISON: None. Baseline examination. FINDINGS: Breast Composition: There are scattered areas of fibroglandular density. There are no dominant masses or suspicious calcifications. No other significant abnormalities are identified. BI/SCRN MAMM (CAD)W/JORGE BILAT IMPRESSION: Negative screening mammogram. Yearly followup mammogram recommended. (A) ASSESSMENT CATEGORY: BIRADS Category 1: Negative. A letter regarding these results will be sent to the patient by the facility within 30 days. Approximately 10% of breast cancers are not detected by mammography. A normal mammogram should not delay biopsy of a clinically suspicious abnormality. [id number] Electronically Signed: Brian Putnam MD at 14:44 EST ,
== END | disposition home or self-care (01) ==
LOC: OPBI 12:38
PROVIDERS: PCP Internal Medicine; Referring Provider Internal Medicine; Visit Provider Internal Medicine
DX: Z12.31 Encounter for screening mammogram for malignant neoplasm of breast (principal)
CPT/HCPCS: 77063; 77067

== ENCOUNTER → 2023-05-14 | Outpatient (CLI) | payer MEDICARE, MEDICAID, SELFPAY | END | disposition home or self-care (01) | PROVIDERS: PCP Internal Medicine; Visit Provider Nurse Practitioner Women's Health | DX: N89.8 Other specified noninflammatory disorders of vagina (principal) | CPT/HCPCS: 87070; 87077; 87186; 87205 ==

== ENCOUNTER 2023-05-17 15:12 | Emergency (ER) | payer MEDICARE, MEDICAID, SELFPAY ==
[2023-05-17 15:14] VITALS: BP 127/74; PULSE 111; RESP 20; TEMP 36.2; O2SAT 100
--- NOTE | 2023-05-17 17:22 | EX.ED.DYSGE1 ---
HPI <SANDY Martinez - Last Filed: 05/17/23 21:40> History of Present Illness Chief Complaint: Other, Pain/Inj Narrative Narrative: Patient presenting today due to concerns for a blistering wound to her right heel. She reports that she has a history of a diabetic bullous disease, she has seen dermatology for this in the past. She noticed the blister to her right heel about a week ago, the area has gotten larger with surrounding redness and swelling. She saw her PCP this morning who recommended she come into the ED to have imaging and blood work performed. Patient has a history of osteomyelitis, spina bifida, and paraplegia. She has felt generally unwell over the past few days and has had intermittent chills. 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 Non-smoker Osteomyelitis of right side of pelvis Pressure ulcer of sacral region, stage 4 Pressure ulcer of sacral region, unstageable 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, stage 4 Skin necrosis Spina bifida of lumbar spine Swelling of right foot Type 1 diabetes mellitus Urinary incontinence Uses wheelchair Vertigo Home Medications blood sugar diagnostic (OneTouch Verio test strips) #120 ea 05/31/22 [Rx Last Taken Unknown] blood-glucose transmitter (Dexcom G6 Transmitter device) #1 ea 10/10/22 [Rx Last Taken Unknown] pen needle, diabetic 32 gauge x 5/32 (BD Ultra-Fine Charla Pen Needle) #400 ea 01/07/23 [Rx Last Taken Unknown] insulin syringe-needle U-100 0.3 mL 31 gauge x 5/16 (BD Insulin Syringe Ultra-Fine) #100 ea 01/15/23 [Rx Last Taken Unknown] ferrous sulfate 325 mg (65 mg iron) tablet 325 mg PO DAILY #90 tabs 03/12/23 [Rx Last Taken 03/20/23] oxybutynin chloride 10 mg tablet,extended release 24 hr 10 mg PO DAILY 03/20/23 [History Last Taken 03/20/23] escitalopram oxalate 5 mg tablet (Lexapro) 5 mg PO DAILY #30 tabs 05/17/23 [Rx Last Taken Unknown] insulin aspart U-100 100 unit/mL subcutaneous cartridge (Novolog PenFill U-100 Insulin aspart) 1 sliding scale dose subcut USEASDIRECTD 05/17/23 [History Last Taken Unknown] terconazole 0.4 % vaginal cream 1 appful vaginal QHS 7 days #45 grams 05/20/23 [Rx Last Taken Unknown] insulin glargine 100 unit/mL subcutaneous solution 15 unit (0.15 mL) subcut QAM #10 mL 05/22/23 [Rx Last Taken Unknown] Allergy/AdvReac Type Severity Reaction Status Date / Time trospium Allergy Intermediate Hives Verified 05/17/23 15:14 Latex, Natural Rubber Allergy Hives Verified 05/17/23 15:14 Family History Other Cancer Diabetes FH: defects Surgical History History of brain surgery History of creation of ostomy History of release of tendon Hx of surgical procedure Status post repair of complex wound Social History current occupational status: disabled Smoking Status: Never smoker alcohol intake: current alcohol intake frequency: holidays/special occasions only Alcohol type: wine substance use type: does not use do you feel safe at home: Yes additional social history: In wheel chair ROS <SANDY Martinez - Last Filed: 05/17/23 21:40> ROS ED Constitutional Constitutional ED: Reports chills; Denies fever(s) Cardiovascular Cardiovascular: Denies chest pain Respiratory/Chest Respiratory/Chest: Denies cough or dyspnea Gastrointestinal Gastrointestinal: Denies abdominal pain, nausea or vomiting Musculoskeletal Musculoskeletal: Denies arthralgias or myalgias Integumentary Reports wounds Neurologic Neurologic: Denies weakness EXAM <SANDY Martinez - Last Filed: 05/17/23 21:40> Physical Exam Const Vital Signs: 05/17/23 15:14 05/17/23 18:12 05/17/23 18:12 Temperature 97.1 F L 98.6 F Temperature Source Temporal Temporal Pulse Rate 111 H 114 H Respiratory Rate 20 H 20 H Respiratory Effort Normal Respiratory Pattern Normal Blood Pressure 127/74 H 159/102 H Blood Pressure Mean 91 121 Pulse Ox 100 95 Oxygen Delivery Method Room Air Room Air 05/17/23 19:00 05/17/23 20:07 Temperature 98.5 F 98.1 F Temperature Source Temporal Pulse Rate 115 H 110 H Respiratory Rate 16 24 H Respiratory Effort Respiratory Pattern Blood Pressure 138/111 H 124/78 H Blood Pressure Mean 120 93 Pulse Ox 97 100 Oxygen Delivery Method Room Air Positive well nourished, well developed and no apparent distress General Appearance ED: well developed HEENT Reports normocephalic and head/scalp atraumatic Mouth ED: Yes moist mucous membranes normal Eyes PERRL and EOMs intact bilaterally Neck full ROM and supple Chest Wall inspection of chest normal Resp normal respiratory effort and clear to auscultation bilaterally Cardio regular rate and regular rhythm GI soft to palpation, non-tender, non-distended and no masses Back/Spine normal ROM and normal to inspection Extremity Extremity Narrative: Circular blistering lesion to the right heel, no warmth, no purulent discharge, no significant surrounding erythema Neuro oriented x3, CN's II-XII intact bilaterally, moves all extremities, no focal motor deficits and no sensory deficits noted Sensorium / Orientation: awake and alert Psych mental status grossly normal and thought process normal <Dr. Reshma Lopez, DO - Last Filed: 05/22/23 12:59> Physical Exam Const Vital Signs: 05/17/23 15:14 05/17/23 18:12 05/17/23 18:12 Temperature 97.1 F L 98.6 F Temperature Source Temporal Temporal Pulse Rate 111 H 114 H Respiratory Rate 20 H 20 H Respiratory Effort Normal Respiratory Pattern Normal Blood Pressure 127/74 H 159/102 H Blood Pressure Mean 91 121 Pulse Ox 100 95 Oxygen Delivery Method Room Air Room Air 05/17/23 19:00 05/17/23 20:07 Temperature 98.5 F 98.1 F Temperature Source Temporal Pulse Rate 115 H 110 H Respiratory Rate 16 24 H Respiratory Effort Respiratory Pattern Blood Pressure 138/111 H 124/78 H Blood Pressure Mean 120 93 Pulse Ox 97 100 Oxygen Delivery Method Room Air [facility] <SANDY Martinez - Last Filed: 05/17/23 21:40> [facility] Narrative Medical decision making narrative: Patient presenting with a wound to her right heel after being sent in by her PCP due to history of osteomyelitis. Patient has had intermittent chills over the past few days and has felt unwell. She is nontoxic-appearing and in no acute distress. The blistering lesion to her right heel does not appear to be infected, and is very minimally red, there is no purulent discharge or lymphangitic streaking. Given her history of osteomyelitis, labs will be obtained as well as an x-ray of the right foot. Imaging is unremarkable. ESR and CRP slightly elevated. She is hyperglycemic but reports she is trying to get better control of her blood sugar. Patient is afebrile, heart rate is slightly tachycardic however this is consistent with previous visits. UA obtained and does show UTI, patient did tell me that she started taking Macrobid yesterday for UTI. This would explain her chills. I encouraged her to have close follow-up with her PCP regarding her foot wound. Return instructions were given and she will be discharged home in stable condition. She is comfortable with plan. Lab Data Attestation: I reviewed the patient's lab results. Lab results narrative: ESR 34, glucose 313, CRP 53 Labs: Laboratory Results - last 24 hr 05/17/23 05/17/23 18:10 18:40 WBC 10.9 RBC 5.10 Hgb 14.6 Hct 45.2 MCV 88.6 MCH 28.6 MCHC 32.3 RDW Std Deviation 42.5 RDW Coeff of Maurizio 13.1 Plt Count 339 MPV 9.4 Immature Gran % (Auto) 0.600 Neut % (Auto) 78.7 H Lymph % (Auto) 12.9 L [place] % (Auto) 5.5 Eos % (Auto) 1.9 Baso % (Auto) 0.4 Absolute Neuts (auto) 8.6 H Absolute Lymphs (auto) 1.40 Nucleated RBC % 0 ESR 34 H Sodium 137 Potassium 3.8 Chloride 107 Carbon Dioxide 25.0 Anion Gap 5 BUN 15 Creatinine 0.92 Estim Creat Clear Calc 56.05 Est GFR (MDRD) Af Amer 85 Est GFR (MDRD) Non-Af 70 BUN/Creatinine Ratio 16.2 Glucose 313 H Lactic Acid 1.4 Calcium 9.4 C-React Prot Ext Range 53.80 H Urine Color Yellow Urine Clarity Sl. Cloudy Urine pH 6.0 Ur Specific [place] 1.020 Urine Protein 30 H Urine Glucose (UA) 1000 H Urine Ketones Negative Urine Occult Blood 25 H Urine Nitrite Positive H Urine Bilirubin Negative Urine Urobilinogen Normal Ur Leukocyte Esterase 500 H Urine RBC 0 SEEN Urine WBC 50-100 SEEN Ur Squamous Epith Cells 0 SEEN Urine Bacteria 1+ Urine Mucus 0 SEEN Urine Yeast 2+ Radiography X-Ray: Read by ED Physician Diagnostic Testing: Clinical Impression(s) from Imaging Studies Foot X-Ray 05/17/23 17:35 IMPRESSION: No acute bony abnormality. Electronically Signed: Luis Felipe Basilio MD at 18:39 EST , <Dr. Reshma Lopez, DO - Last Filed: 05/22/23 12:59> [facility] MDM Narrative Medical decision making narrative: Patient presenting with a wound to her right heel after being sent in by her PCP due to history of osteomyelitis. Patient has had intermittent chills over the past few days and has felt unwell. She is nontoxic-appearing and in no acute distress. The blistering lesion to her right heel does not appear to be infected, and is very minimally red, there is no purulent discharge or lymphangitic streaking. Given her history of osteomyelitis, labs will be obtained as well as an x-ray of the right foot. Imaging is unremarkable. ESR and CRP slightly elevated. She is hyperglycemic but reports she is trying to get better control of her blood sugar. Patient is afebrile, heart rate is slightly tachycardic however this is consistent with previous visits. UA obtained and does show UTI, patient did tell me that she started taking Macrobid yesterday for UTI. This would explain her chills. I encouraged her to have close follow-up with her PCP regarding her foot wound. Return instructions were given and she will be discharged home in stable condition. She is comfortable with plan. I have personally performed a face to face assessment of the patient and have reviewed the SPRING Note. I performed a substantive portion of the visit including all aspects of the following. My gomez findings include: History is patient is a 43-year-old female significant past medical history including osteomyelitis, spina bifida with paralysis of the lower extremities lack of sensation. She also has a history of Diabetic bullous disease which she is seeing dermatology for in the past. She has had chills and fatigue for the past few days and new blister that developed on her right heel about a week ago. She has had some localized swelling and redness to the right foot. Was sent in for further evaluation and concern of possible osteomyelitis. Of note patient does not have sensation to her lower extremities so cannot report on any pain. In addition she has been following up with gynecology and recently was started on Macrobid as well as Bactrim for BV and vaginal culture positive for E. coli and Enterococcus faecalis by ADMINISTRATIVE SUPPORT SPECIALIST. On exam patient overall is well-appearing. Does have some mild chills. Appears well-hydrated. Mucosal membranes. Neck is supple. No meningeal signs. Heart regular rhythm mildly tachycardic. Lungs clear to auscultation bilaterally. Abdomen soft and nontender. Suprapubic Ochoa catheter in place. Paralysis of the lower extremities with deformity associated with spina bifida. Does have some localized swelling to the right foot but no associated erythema. There is a hemorrhagic appearing blister to the right heel that is nontender. Workup for signs of infection as well as possible osteomyelitis is obtained. She does not have a leukocytosis or fever in the emergency room. CRP and ESR are elevated but this is nonspecific. X-ray of the heel reviewed by myself as well as radiology does not show any acute bony abnormality. Given only a week of symptoms of low suspicion for osteomyelitis and if anything patient would require an MRI outpatient not a CT for further evaluation of this. I do not think she requires a CT as I am not concerned for an occult fracture. Patient does appear to have what looks like a catheter associated urinary tract infection however she is already on Macrobid and Bactrim so we will defer any new antibiotics at this time. She is mildly tachycardic in the ER but this does appear to be her baseline. Patient verbalizes understanding and agreement with outpatient follow-up. Discharged home. Given return precautions. Other additions or changes: [None] Lab Data Labs: Laboratory Results - last 24 hr 05/17/23 05/17/23 18:10 18:40 WBC 10.9 RBC 5.10 Hgb 14.6 Hct 45.2 MCV 88.6 MCH 28.6 MCHC 32.3 RDW Std Deviation 42.5 RDW Coeff of Maurizio 13.1 Plt Count 339 MPV 9.4 Immature Gran % (Auto) 0.600 Neut % (Auto) 78.7 H Lymph % (Auto) 12.9 L [place] % (Auto) 5.5 Eos % (Auto) 1.9 Baso % (Auto) 0.4 Absolute Neuts (auto) 8.6 H Absolute Lymphs (auto) 1.40 Nucleated RBC % 0 ESR 34 H Sodium 137 Potassium 3.8 Chloride 107 Carbon Dioxide 25.0 Anion Gap 5 BUN 15 Creatinine 0.92 Estim Creat Clear Calc 56.05 Est GFR (MDRD) Af Amer 85 Est GFR (MDRD) Non-Af 70 BUN/Creatinine Ratio 16.2 Glucose 313 H Lactic Acid 1.4 Calcium 9.4 C-React Prot Ext Range 53.80 H Urine Color Yellow Urine Clarity Sl. Cloudy Urine pH 6.0 Ur Specific [place] 1.020 Urine Protein 30 H Urine Glucose (UA) 1000 H Urine Ketones Negative Urine Occult Blood 25 H Urine Nitrite Positive H Urine Bilirubin Negative Urine Urobilinogen Normal Ur Leukocyte Esterase 500 H Urine RBC 0 SEEN Urine WBC 50-100 SEEN Ur Squamous Epith Cells 0 SEEN Urine Bacteria 1+ Urine Mucus 0 SEEN Urine Yeast 2+ Radiography Diagnostic Testing: Clinical Impression(s) from Imaging Studies Foot X-Ray 05/17/23 17:35 IMPRESSION: No acute bony abnormality. Electronically Signed: Luis Felipe Basilio MD at 18:39 EST Reading Location ID and State: [facility] / [place] Tel , Service support , Discharge Plan Triage Chief Complaint: Other, Pain/Inj ED Midlevel Provider: Luz Marina Mora ED Provider: Reshma Lopez Dx/Rx/DC Orders Clinical Impression: Blister of heel, UTI (urinary tract infection) Instructions: Urinary Tract Infections in Women, ED Blister (Adult) Prescriptions: No Action (DME) Dexcom G6 Transmitter Device See Rx Instructions .Route Qty: 1 0RF Rx Instructions: 1 transmitter q 90 days (DME) insulin syringe-needle U-100 [BD Insulin Syringe Ultra-Fine] 0.3 mL 31 gauge x 5/16 syringe See Rx Instructions .Route Qty: 100 3RF Rx Instructions: daily insulin aspart U-100 [Novolog PenFill U-100 Insulin] 100 unit/mL cartridge 1 sliding scale dose subcut USEASDIRECTD escitalopram oxalate [Lexapro] 5 mg tablet 5 mg PO DAILY Qty: 30 1RF oxybutynin chloride 10 mg tablet extended release 24hr 10 mg PO DAILY Patient Comments: take 1 tablet by mouth every morning (DME) OneTouch Verio test strips Strip See Rx Instructions .Route Qty: 120 5RF Rx Instructions: 4x/day (DME) pen needle, diabetic [BD Ultra-Fine Charla Pen Needle] 32 gauge x 5/32 needle See Rx Instructions .ROUTE .MEDSUPPLY Qty: 400 1RF Rx Instructions: 4 times daily ferrous sulfate 325 mg (65 mg iron) tablet 325 mg PO DAILY Qty: 90 0RF terconazole 0.4 % cream 1 appful vaginal QHS 7 Days Qty: 45 0RF insulin glargine 100 unit/mL solution 15 unit subcut QAM Qty: 10 3RF Primary Care Provider: Cosmo Smith Referrals: Cosmo Smith MD [Primary Care Provider] - 3-5 Days Activity Restrictions/Additional Instructions: Continue taking your antibiotics as prescribed, follow-up with your PCP, return for any worsening of your symptoms. Disposition Disposition: Home, Self Care Discharge Date/Time: 05/17/23 20:26
--- NOTE | 2023-05-17 17:35 | RAD_ITS ---
INDICATION: heel wound EXAMINATION/TECHNIQUE: X-RAY - RIGHT XR Foot Min 3 Views 3 VIEWS COMPARISON: None. FINDINGS: SOFT TISSUES: Mid and forefoot, no gas formations. No radiopaque foreign body. BONES/JOINTS: No acute fracture. Joint spaces anatomically aligned. No sclerotic or destructive changes observed. RAD/Foot min 3 Views IMPRESSION: No acute bony abnormality. Electronically Signed: Luis Felipe Basilio MD at 18:39 EST ,
[2023-05-17 18:12] VITALS: BP 159/102; PULSE 114; RESP 20; TEMP 37; O2SAT 95
[2023-05-17 18:17] VITALS: BMI 31.2
[2023-05-17 18:32] LABS: Absolute Neutrophil Count 8.6 X10^3/uL (2.0-7.7); Basophil# 0.04 X10^3/uL; Basophil% 0.4 % (0-1); Eosinophil# 0.21 X10^3/uL; Eosinophils% 1.9 % (0-5); Hematocrit 45.2 % (37-47); Hemoglobin 14.6 g/dL (12.0-15.0); Lymphocyte % 12.9 % (19-41); Mean Corp Hgb Conc 32.3 g/dL (32-36); Mean Corpuscular Hgb 28.6 pg (27.0-32.0); Mean Corpuscular Volume 88.6 fL (81-99); Mean Platelet Vol. 9.4 fl (6.2-12.0); Monocyte% 5.5 % (0-10); NRBC Flagged by Analyzer 0 % (0-5); Neutrophil # 8.58 X10^3/uL (2.7-7.7); Neutrophil % 78.7 % (47-70); Platelet Count 339 K/mm3 (150-450); RBC Distribution Width CV 13.1 % (11.6-14.6); RBC Distribution Width SD 42.5 fl (35.1-43.9); White Blood Count 10.9 K/mm3 (4.4-11.0)
[2023-05-17 18:52] LABS: Anion Gap 5 (5-15); BUN 15 mg/dL (7-18); BUN/Creat Ratio 16.2 RATIO (10-20); Calcium,Total 9.4 mg/dL (8.5-10.1); Chloride 107 mmol/L (98-107); Creatinine, Serum 0.92 mg/dL (0.55-1.02); EST Glomerular Filtration Rate 70 mL/min (>60); Est Glom Filt Rate - Afr Amer 85 mL/min (>60); Estimated Creatinine Clearance 56.05 ml/min; Glucose 313 mg/dL (74-106); Potassium 3.8 mmol/L (3.5-5.1); Sodium Level 137 mmol/L (136-145)
[2023-05-17 18:55] LABS: Mucous, Urine 0 SEEN /hpf (<or=2+); Red Blood Cells-Urine 0 SEEN /hpf (0-5); Squamous Epithelial Cells - UA 0 SEEN /hpf (5-10)
[2023-05-17 18:56] LABS: Erythrocyte Sedimentation Rate 34 mm/hr (0-30)
[2023-05-17 19:00] VITALS: BP 138/111; PULSE 115; RESP 16; TEMP 36.9; O2SAT 97
[2023-05-17 19:00] LABS: Color, Urine Yellow (Yellow); Glucose, Dipstick 1000 mg/dl (Normal); Ketone-Dipstick Negative (Negative); Leukocyte Esterase-Dipstick 500 /ul (Negative); Nitrite-Dipstick Positive (Negative); Occult Blood-Urine 25 /ul (Negative); Protein-Dipstick 30 mg/dl (Negative); Urine Bilirubin Dipstick Negative (Negative); Urine Clarity Sl. Cloudy (Clear); Urine Urobilinogen Normal (Normal)
[2023-05-17 19:07] LABS: Lactic Acid 1.4 mmol/L (0.4-1.9)
[2023-05-17 19:14] LABS: Bacteria 1+ /hpf (None Seen); White Blood Cells 50-100 SEEN /hpf (0-5); Yeast-Urine 2+ /hpf (None Seen)
[2023-05-17 20:07] VITALS: BP 124/78; PULSE 110; RESP 24; TEMP 36.7; O2SAT 100
== END 2023-05-17 20:26 | disposition home or self-care (01) ==
PROVIDERS: Physician Assistant; Emergency Provider Emergency Medicine; PCP Internal Medicine; Visit Provider Emergency Medicine
DX: S90.821A Blister (nonthermal), right foot, initial encounter (principal); E10.9 Type 1 diabetes mellitus without complications; N39.0 Urinary tract infection, site not specified; X58.XXXA Exposure to other specified factors, initial encounter
CPT/HCPCS: 73630; 80048; 81001; 83605; 85025; 85652; 86140; 87040; 87077; 87086; 87088; 87186; 99282; A4216

== ENCOUNTER → 2023-05-27 | Outpatient (CLI) | payer MEDICARE, MEDICAID, SELFPAY ==
--- NOTE | 2023-05-27 13:20 | US_ITS ---
STUDY: ULTRASOUND OF THE FEMALE PELVIS - COMPLETE REASON FOR EXAM: Female, 43 years old. Abnormal bleeding TECHNIQUE: Transabdominal and Transvaginal TECHNICAL QUALITY: Adequate. COMPARISON: 07/20/2022 FINDINGS: The uterus is anteverted and is in a midline position. The uterus measures 14.6 x 12.3 x 7.1 cm. Normal uterine cervix. The endometrium measures 23 mm in thickness, and is heterogeneous (striated). There is no demonstrated endometrial mass. Mirror Inspector does at least 3 fibroids with the largest measuring 8.4 x 5.5 x 6.1 cm. I.U.D. - The patient does not have an I.U.D. The right ovary is visualized. The right ovary measures 2.9 x 1.9 x 2.0 cm. There is no right ovarian cyst or ovarian mass. There is no visualized right adnexal mass or complex lesion. There is normal arterial and normal venous vascularity. The left ovary is visualized. The left ovary measures 3.0 x 2.2 x 2.4 cm. There is no left ovarian cyst or ovarian mass. There is no visualized left adnexal mass or complex lesion. There is normal arterial and normal venous vascularity. There is no fluid in the cul-de-sac. The bladder is collapsed around a suprapubic catheter US/Pelvic w/ Transvaginal IMPRESSION: Enlarged fibroid uterus. Largest fibroid measures 8.4 x 5.5 x 6.1 cm Thickened heterogeneous endometrium but still within normal range for a patient of this age No suspicious adnexal mass or free fluid Electronically Signed: Latrell Lezama MD at 23:37 EDT ,
== END | disposition home or self-care (01) ==
LOC: US 13:18
PROVIDERS: PCP Internal Medicine; Referring Provider Nurse Practitioner Women's Health; Visit Provider Nurse Practitioner Women's Health
DX: N93.9 Abnormal uterine and vaginal bleeding, unspecified (principal)
CPT/HCPCS: 76830; 76856

== ENCOUNTER 2023-05-30 10:00 | Outpatient (RCR) | payer MEDICARE, MEDICAID, SELFPAY ==
[2023-05-23 10:22] VITALS: BP 118/76; PULSE 92; RESP 18; BMI 30.5
--- NOTE | 2023-05-23 10:45 | HP.PCM_ITS ---
History of Present Illness Chief Complaint: Follow-up right buttocks wound History of Wound: Ms. Walker is a very pleasant 42-year-old with a history of spina bifida with history of recurrent decubitus ulcers. Has been following up here for right buttock ulcer which opened up months ago. Prior to her initial visit here, had been following up at [place] and had some point had a flap closure. Moved here to be closer with family. Has had 1 application of epi fix so far however unfortunately this did not stay on. History of insulin- dependent diabetes mellitus. She states that her blood readings are all over the place. She reports compliance with her medications. She feels well at this time and denies chills, fever, nausea, vomiting or change in bowel habit. 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 Non-smoker Osteomyelitis of right side of pelvis Pressure ulcer of sacral region, stage 4 Pressure ulcer of sacral region, unstageable 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, stage 4 Skin necrosis Spina bifida of lumbar spine Swelling of right foot Type 1 diabetes mellitus Urinary incontinence Uses wheelchair Vertigo Home Medications blood sugar diagnostic (OneTouch Verio test strips) #120 ea 05/31/22 [Rx Last Taken Unknown] blood-glucose transmitter (Dexcom G6 Transmitter device) #1 ea 10/10/22 [Rx Last Taken Unknown] pen needle, diabetic 32 gauge x 5/32 (BD Ultra-Fine Charla Pen Needle) #400 ea 01/07/23 [Rx Last Taken Unknown] insulin syringe-needle U-100 0.3 mL 31 gauge x 5/16 (BD Insulin Syringe Ultra- Fine) #100 ea 01/15/23 [Rx Last Taken Unknown] ferrous sulfate 325 mg (65 mg iron) tablet 325 mg PO DAILY #90 tabs 03/12/23 [Rx Last Taken 03/20/23] oxybutynin chloride 10 mg tablet,extended release 24 hr 10 mg PO DAILY 03/20/23 [History Last Taken 03/20/23] escitalopram oxalate 5 mg tablet (Lexapro) 5 mg PO DAILY #30 tabs 05/17/23 [Rx Last Taken Unknown] insulin aspart U-100 100 unit/mL subcutaneous cartridge (Novolog PenFill U-100 Insulin aspart) 1 sliding scale dose subcut USEASDIRECTD 05/17/23 [History Last Taken Unknown] terconazole 0.4 % vaginal cream 1 appful vaginal QHS 7 days #45 grams 05/20/23 [Rx Last Taken Unknown] insulin glargine 100 unit/mL subcutaneous solution 15 unit (0.15 mL) subcut QAM #10 mL 05/22/23 [Rx Last Taken Unknown] Allergy/AdvReac Type Severity Reaction Status Date / Time trospium Allergy Intermediate Hives Verified 05/17/23 15:14 Latex, Natural Rubber Allergy Hives Verified 05/17/23 15:14 Family History Other Cancer Diabetes FH: defects Surgical History History of brain surgery History of creation of ostomy History of release of tendon Hx of surgical procedure Status post repair of complex wound Social History current occupational status: disabled Smoking Status: Never smoker alcohol intake: current alcohol intake frequency: holidays/special occasions only Alcohol type: wine substance use type: does not use do you feel safe at home: Yes additional social history: In wheel chair Vital Signs Vital Signs Vital Signs: 05/23/23 10:22 Pulse Rate 92 Respiratory Rate 18 Blood Pressure 118/76 Blood Pressure Mean 90 Blood Pressure Source Monitor Blood Pressure Position Sitting Blood Pressure Location Left Arm Oxygen Delivery Method Room Air Weight Weight: 45.359 kg Body Mass Index (BMI) 30.5 Debridement Note Debridement Note Post-Debridement Measurements and Additional Note: Post-Debridement Measurements/Treatment WC - Nurse 1 - General Ulcer Assessment Start: 05/23/23 10:22 Freq: Status: Active Protocol: KRISTIN Activity Type Activity Date Activity User E-sign Co-sign Detail Recorded Client Recorded Date Recorded By Document 05/23/23 10:22 [employer] Desktop 05/23/23 10:32 [employer] 05/23/23 10:22 WC - Today's Visit Information Type of service Initial Visit Arrival Mode Wheelchair Accompanied by CAREGIVER Patient Identification Verified (Name & Yes ) Height and Weight Height 4 ft Weight 45.359 kg Weight in Pounds 100.0 lbs Weight Measurement Method Estimated by Patient Body Mass Index (BMI) 30.5 BMI Classification Obese BSA - Jimmy 1.18 Vital Signs Pulse Rate (60-100) 92 Pulse Location Monitor Respiratory Rate (12-18) 18 Respiratory rate source Observation Oxygen Delivery Method Room Air Blood Pressure (90/60-120/80) 118/76 Blood Pressure Mean 90 Source Monitor Position Sitting Blood Pressure Location Left Arm History Since Last Visit- (Skip if this is Patient's initial visit) Left Footwear Slipper Right Footwear Slipper Pain Scale: 0-10 Numeric Is Patient Pain Free? Yes WC - Nurse 1 - General Ulcer Measurement Start: 05/23/23 10:22 Freq: Status: Active Protocol: Activity Type Activity Date Activity User E-sign Co-sign Detail Recorded Client Recorded Date Recorded By Document 05/23/23 10:22 [employer] 05/23/23 10:32 [employer] 05/23/23 10:22 Wound Center Nurse 1 #6 RT HEEL -Current Size (cm) - Length 0.1 -Current Size (cm) - Width 0.1 -Current Size (cm) - Depth 0.1 -Total Square Cm 0.01 -Ulcer Cleansing Rinsed/ Irrigated with Saline -Anesthetic Used 5% Lidocaine Gel -Wound Comment(s) NOT OPEN AT THIS TIME, SEEMS LIKE A BLISTER
--- NOTE | 2023-05-23 10:45 | PCM.WC.HP ---
History of Present Illness Date of Service: 05/23/23 Chief Complaint: Follow-up right buttocks wound History of Wound: Ms. Walker is a very pleasant 43-year-old with a history of spina bifida with history of recurrent decubitus ulcers, and paraplegia. She states 3 weeks ago she developed a blister on the back of her right heel which did fill with fluid but then did sink back down flush with skin. She did see her PCP 05/17/2023 who felt given localized redness and swelling in the lower extremity possible infection may be present and she should report to the ED. Patient did follow-up in the ED and underwent evaluation with mildly elevated CRP and ESR with negative radiographic signs for osteomyelitis. She is noted to have some chills and general well and feeling at this time however did also have a UTI with positive urine culture and had been taking Macrobid. Right heel wound demonstrated no signs of infection in the ED and thus she was instructed to follow-up with the wound care center for continued care. Patient currently denies N/V/F/chills. She denies further complaints. 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 Non-smoker Osteomyelitis of right side of pelvis Pressure ulcer of sacral region, stage 4 Pressure ulcer of sacral region, unstageable 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, stage 4 Skin necrosis Spina bifida of lumbar spine Swelling of right foot Type 1 diabetes mellitus Urinary incontinence Uses wheelchair Vertigo Home Medications blood sugar diagnostic (OneTouch Verio test strips) #120 ea 05/31/22 [Rx Last Taken Unknown] blood-glucose transmitter (Dexcom G6 Transmitter device) #1 ea 10/10/22 [Rx Last Taken Unknown] pen needle, diabetic 32 gauge x 5/32 (BD Ultra-Fine Charla Pen Needle) #400 ea 01/07/23 [Rx Last Taken Unknown] insulin syringe-needle U-100 0.3 mL 31 gauge x 5/16 (BD Insulin Syringe Ultra-Fine) #100 ea 01/15/23 [Rx Last Taken Unknown] ferrous sulfate 325 mg (65 mg iron) tablet 325 mg PO DAILY #90 tabs 03/12/23 [Rx Last Taken 03/20/23] oxybutynin chloride 10 mg tablet,extended release 24 hr 10 mg PO DAILY 03/20/23 [History Last Taken 03/20/23] escitalopram oxalate 5 mg tablet (Lexapro) 5 mg PO DAILY #30 tabs 05/17/23 [Rx Last Taken Unknown] insulin aspart U-100 100 unit/mL subcutaneous cartridge (Novolog PenFill U-100 Insulin aspart) 1 sliding scale dose subcut USEASDIRECTD 05/17/23 [History Last Taken Unknown] terconazole 0.4 % vaginal cream 1 appful vaginal QHS 7 days #45 grams 05/20/23 [Rx Last Taken Unknown] insulin glargine 100 unit/mL subcutaneous solution 15 unit (0.15 mL) subcut QAM #10 mL 05/22/23 [Rx Last Taken Unknown] Allergy/AdvReac Type Severity Reaction Status Date / Time trospium Allergy Intermediate Hives Verified 05/17/23 15:14 Latex, Natural Rubber Allergy Hives Verified 05/17/23 15:14 Family History Other Cancer Diabetes FH: defects Surgical History History of brain surgery History of creation of ostomy History of release of tendon Hx of surgical procedure Status post repair of complex wound Social History current occupational status: disabled Smoking Status: Never smoker alcohol intake: current alcohol intake frequency: holidays/special occasions only Alcohol type: wine substance use type: does not use do you feel safe at home: Yes additional social history: In wheel chair ROS Constitutional Constitutional: Denies anorexia, chills, fatigue or fever(s) Eyes Eyes: Denies blurry vision, change in vision or double vision ENT HEENT: Denies dysphagia, nasal congestion, nasal discharge or sore throat Cardiovascular Cardiovascular: Denies chest pain, claudication or palpitations Respiratory/Chest Respiratory/Chest: Denies cough, shortness of breath at rest or wheezing Gastrointestinal Gastrointestinal: Denies abdominal pain, constipation, diarrhea, nausea or vomiting Genitourinary Genitourinary: Denies dysuria, hematuria or urinary frequency Musculoskeletal Musculoskeletal: Denies joint pain, joint stiffness or joint swelling Integumentary Integumentary: Denies lesions, pruritus or rash Neurologic Neurologic: Denies dizziness, numbness or seizures Psychiatric Psychiatric: Reports anxiety and depression Endocrine Endocrinology: Denies cold intolerance or heat intolerance Hematologic/Lymphatic Hematologic/Lymphatic: Denies easy bleeding or easy bruising Vital Signs Vital Signs Vital Signs: 05/23/23 10:22 Pulse Rate 92 Respiratory Rate 18 Blood Pressure 118/76 Blood Pressure Mean 90 Blood Pressure Source Monitor Blood Pressure Position Sitting Blood Pressure Location Left Arm Oxygen Delivery Method Room Air Weight Weight: 45.359 kg Body Mass Index (BMI) 30.5 Physical Exam Const alert, oriented x3 and no apparent distress General Appearance: cooperative HEENT normocephalic Eyes General Eye: normal appearance of both eyes Neck General: normal visual inspection Lymph Lymphatic: no lymphadenopathy noted and no lymphedema noted Resp normal respiratory effort Cardio regular rate and regular rhythm Extremity normal capillary refill, no joint enlargement and no calf tenderness Extremity Narrative: Vascular: DP and PT pulses weakly palpable bilateral secondary to paraplegic status. CFT less than 4 seconds to digits bilateral. Temperature gradient is warm to cool bilateral. Hair growth is diminished to the digits. Neurological: Absent lower extremity sensation secondary to paraplegic status Musculoskeletal: Muscle strength 0/5 secondary to paraplegic status. Dermatologic: There is bilateral lower extremity edema right greater than left about the foot. Right posterior heel demonstrates superficial blister with some eschar/hematoma under the blistered skin. Post removal of blistered skin demonstrates healthy dermal layer. No signs of infection. Skin no rashes or lesions noted, skin turgor normal and no jaundice General Skin Exam: venous stasis Neuro oriented x3 Gait (Neuro): other Assisted by wheelchair secondary to paraplegic status Debridement Note Debridement Note Wound debrided: Right posterior heel Laterality: Right Wound Grade/Stage: Grey stage I Type of Debridement: Excisional debridement Anesthesia Used: 5% Lidocaine Gel Depth: Down to and including healthy tissue Percentage of wound debrided: 100 Instrument Used: 5mm curette, #15 blade and Forceps Tissue Removed: devitalized epithelial tissue, biofilm, slough Severity: Limited To Skin Breakdown Amount of bleeding with debridement: Mild Bleeding Controlled with: Compression and gauze Patient tolerated procedure: Patient tolerated procedure well Post-Debridement Measurements and Additional Note: Post-Debridement Measurements/Treatment - Nurse 1 - General Ulcer Assessment Start: 05/23/23 10:22 Freq: Status: Active Protocol: KRISTIN Activity Type Activity Date Activity User E-sign Co-sign Detail Recorded Client Recorded Date Recorded By Document 05/23/23 10:22 [employer] 05/23/23 10:32 KW 05/23/23 10:22 WC - Today's Visit Information Type of service Initial Visit Arrival Mode Wheelchair Accompanied by CAREGIVER Patient Identification Verified (Name & Yes ) Height and Weight Height 4 ft Weight 45.359 kg Weight in Pounds 100.0 lbs Weight Measurement Method Estimated by Patient Body Mass Index (BMI) 30.5 BMI Classification Obese BSA - Jimmy 1.18 Vital Signs Pulse Rate (60-100) 92 Pulse Location Monitor Respiratory Rate (12-18) 18 Respiratory rate source Observation Oxygen Delivery Method Room Air Blood Pressure (90/60-120/80) 118/76 Blood Pressure Mean 90 Source Monitor Position Sitting Blood Pressure Location Left Arm History Since Last Visit- (Skip if this is Patient's initial visit) Left Footwear Slipper Right Footwear Slipper Pain Scale: 0-10 Numeric Is Patient Pain Free? Yes - Nurse 1 - General Ulcer Measurement Start: 05/23/23 10:22 Freq: Status: Active Protocol: Activity Type Activity Date Activity User E-sign Co-sign Detail Recorded Client Recorded Date Recorded By Document 05/23/23 10:22 [employer] 05/23/23 10:32 KW 05/23/23 10:22 Wound Center Nurse 1 #6 RT HEEL -Current Size (cm) - Length 0.1 -Current Size (cm) - Width 0.1 -Current Size (cm) - Depth 0.1 -Total Square Cm 0.01 -Ulcer Cleansing Rinsed/ Irrigated with Saline -Anesthetic Used 5% Lidocaine Gel -Wound Comment(s) NOT OPEN AT THIS TIME, SEEMS LIKE A BLISTER Assessment/Plan Assessment/Plan (1) Blister of heel: CODE(S): S90.829A - Blister (nonthermal), unspecified foot, initial encounter (2) Swelling of right foot: CODE(S): M79.89 - Other specified soft tissue disorders (3) Localized edema: CODE(S): R60.0 - Localized edema (4) Spina bifida: CODE(S): Q05.9 - Spina bifida, unspecified (5) Paraplegia: CODE(S): G82.20 - Paraplegia, unspecified (6) Non-pressure chronic ulcer of other part of right foot limited to breakdown of skin: CODE(S): L97.511 - Non-pressure chronic ulcer of other part of right foot limited to breakdown of skin PLAN: Plan Patient seen and evaluated Ulceration underwent debridement as noted in the clinical panel above. Ulceration measures 3.0 cm x 3.0 cm x 0.1 cm. No signs of infection. Ulceration is superficial in nature. Silvana applied to the wound bed and dressed with dry sterile dressing. Tubigrip compression applied to right lower extremity. Discussed daily dressing changes with patient today. Discussed proper offloading to ensure the heel floats while at rest via pillow bump. Discussed proper fitting shoe gear today. Encouraged shoes to be worn at all times due to inability to feel. Discussed importance of proper fitting to decrease sites of pressure or rubbing. Discussed use of compression stockings to aid in edema control. Discussed signs and symptoms of infection. Discussed if she notices redness increasing around the wound site or spreading up the leg, purulent drainage from the wound site, increasing foul odor from the wound, or if she experiences fever greater than 101 degree accompanied by nausea, vomiting, chills these are signs of progressing infection and she should report to the ED to receive IV antibiotics and further evaluation. The following work up and care recommendations were made: Dressing: Silvana, dry sterile dressing, Tubigrip compression Wash: Soap and water Tissue growth optimization: Silvana Offload: Float heel with pillow pump at night to ensure no pressure to the back of the heel. Vascular: Weakly palpable DP and PT pulses secondary to paraplegic status however this is not affecting healing at this time. Edema: There is mild edema secondary to a paraplegic status. Recommended continued use of Tubigrip compression with eventual transition to compression stocking. Infection: No signs of infection Pain: May take [id number] Tylenol for any discomfort Host factors: DM type I, spina bifida, paraplegic status I answered all the patient's questions. To return to the wound healing center in 1 week or call sooner if the patient has any questions or concerns.
[2023-05-30 10:25] VITALS: BP 121/73; PULSE 97; RESP 20; TEMP 35.7; BMI 30.5
--- NOTE | 2023-05-30 11:20 | PCM.WC.PN ---
History of Present Illness Date of Service: 05/30/23 Chief Complaint: Follow-up right buttocks wound History of Wound: Ms. Walker is a very pleasant 43-year-old with a history of spina bifida with history of recurrent decubitus ulcers, and paraplegia. She states 3 weeks ago she developed a blister on the back of her right heel which did fill with fluid but then did sink back down flush with skin. She did see her PCP 05/17/2023 who felt given localized redness and swelling in the lower extremity possible infection may be present and she should report to the ED. Patient did follow-up in the ED and underwent evaluation with mildly elevated CRP and ESR with negative radiographic signs for osteomyelitis. She is noted to have some chills and general well and feeling at this time however did also have a UTI with positive urine culture and had been taking Macrobid. Right heel wound demonstrated no signs of infection in the ED and thus she was instructed to follow-up with the wound care center for continued care. Patient currently denies N/V/F/chills. She denies further complaints. Subjective Subjective This is a 43-year-old female who is following to the wound care center today for follow-up of right heel ulceration. Patient states that she is continue to pad and protect the area following removal of the blister on the right heel. She feels that it is continuing to get better with daily dressing changes. States she did complete oral antibiotic course for her UTI and does overall feel much better. Denies constitutional symptoms. Denies further complaints. Objective Data Objective Data Vital Signs: Vital Signs Temp Pulse Resp BP O2 Del Method 96.2 F L 97 20 H 121/73 H Room Air 05/30/23 10:25 05/30/23 10:25 05/30/23 10:25 05/30/23 10:25 05/23/23 10:22 Oxygen Delivery Method Room Air Weight: 45.359 kg Body Mass Index (BMI) 30.5 Physical Exam Const alert, oriented x3 and no apparent distress General Appearance: cooperative HEENT normocephalic Eyes General Eye: normal appearance of both eyes Neck General: normal visual inspection Lymph Lymphatic: no lymphadenopathy noted and no lymphedema noted Resp normal respiratory effort Cardio regular rate and regular rhythm Extremity normal capillary refill, no joint enlargement and no calf tenderness Extremity Narrative: Vascular: DP and PT pulses weakly palpable bilateral secondary to paraplegic status. CFT less than 4 seconds to digits bilateral. Temperature gradient is warm to cool bilateral. Hair growth is diminished to the digits. Neurological: Absent lower extremity sensation secondary to paraplegic status Musculoskeletal: Muscle strength 0/5 secondary to paraplegic status. Dermatologic: There is bilateral lower extremity edema right greater than left about the foot. Right posterior heel demonstrates superficial blister with some eschar/hematoma under the blistered skin. Post removal of blistered skin demonstrates healthy dermal layer. No signs of infection. The site continues to improve with new epithelialization versus previous visit. Skin no rashes or lesions noted, skin turgor normal and no jaundice General Skin Exam: venous stasis Neuro oriented x3 Gait (Neuro): other Assisted by wheelchair secondary to paraplegic status Debridement Note Debridement Note No debridement was completed: No debridement was completed today Post-Debridement Measurements and Additional Note: Post-Debridement Measurements/Treatment - Nurse 1 - General Ulcer Assessment Start: 05/23/23 10:22 Freq: Status: Active Protocol: KRISTIN Activity Type Activity Date Activity User E-sign Co-sign Detail Recorded Client Recorded Date Recorded By Document 05/23/23 10:22 KW Desktop 05/23/23 10:32 KW Document 05/30/23 10:25 DL Desktop 05/30/23 10:31 DL 05/23/23 05/30/23 10:22 10:25 WC - Today's Visit Information Type of service Initial Visit Follow-up Visit (Physician/RUG SIZER ) Arrival Mode Wheelchair Wheelchair Transfer Assistance Manual Transfer Assist (Other) x1 Accompanied by CAREGIVER Patient Identification Verified (Name & Yes Yes ) Patient Requires Transmission-Based No Precautions Finger Stick Blood Sugar(mg/dl) (if 100 indicated): Blood Sugar Stated by Patient Height and Weight Height 4 ft Weight 45.359 kg Weight in Pounds 100.0 lbs Weight Measurement Method Estimated by Patient Body Mass Index (BMI) 30.5 30.5 BMI Classification Obese Obese BSA - Jimmy 1.18 Vital Signs Temperature (97.8 F-99.1 F) 96.2 F L Temperature Source Temporal Pulse Rate (60-100) 92 97 Pulse Location Monitor Monitor Respiratory Rate (12-18) 18 20 H Respiratory rate source Observation Observation Oxygen Delivery Method Room Air Blood Pressure (90/60-120/80) 118/76 121/73 H Blood Pressure Mean (mm Hg) 90 89 Source Monitor Monitor Position Sitting Blood Pressure Location Left Arm History Since Last Visit- (Skip if this is Patient's initial visit) Have you changed medications since your No last visit? Any new allergies or adverse reactions No Had a fall/change in ADL's that may No increase risk of falls Signs or symptoms of abuse and/or No neglect since last visit Have you been in the hospital since your No last visit? Has dressing in place as prescribed Yes Has compression in place as prescribed Yes Has offloadiing in place as prescribed Yes Experienced any changes in pain level or No management Left Footwear Slipper Regular Shoe Right Footwear Slipper Regular Shoe Pain Scale: 0-10 Numeric Is Patient Pain Free? Yes Yes WC - Nurse 1 - General Ulcer Measurement Start: 05/23/23 10:22 Freq: Status: Active Protocol: Activity Type Activity Date Activity User E-sign Co-sign Detail Recorded Client Recorded Date Recorded By Document 05/23/23 10:22 KW Desktop 05/23/23 10:32 KW Document 05/30/23 10:25 DL Desktop 05/30/23 10:31 DL 05/23/23 05/30/23 10:22 10:25 Wound Center Nurse 1 #6 RT HEEL -Current Size (cm) - Length 0.1 0 -Current Size (cm) - Width 0.1 0 -Current Size (cm) - Depth 0.1 0 -Total Square Cm 0.01 0 -Photo Taken Yes -Exudate Amt None Present -Wound Margin Indistinct, Non -Visible -Granulation Amt Large (67-100%) -Granulation Quality [place] -Necrosis Amt None Present (0 %) -Structure Exposed N/A -Texture (Cassandra-wound Skin Appearance) No Abnormality -Moisture (Cassandra-wound Skin Appearance) No Abnormality -Color (Cassandra-wound Skin Appearance) No Abnormality -Temperature (Cassandra-wound Skin No Abnormality Appearance) (Pt Warm) -Tenderness on Palpation (Cassandra-wound No Skin Appearance) -Ulcer Cleansing Rinsed/ Rinsed/ Irrigated with Irrigated with Saline Saline -Foul Odor after Cleansing No -Anesthetic Used 5% Lidocaine Gel -Wound Comment(s) NOT OPEN AT THIS TIME, SEEMS LIKE A BLISTER WC - Nurse 2 - General Ulcer CM Notes Start: 05/23/23 10:22 Freq: Status: Active Protocol: Activity Type Activity Date Activity User E-sign Co-sign Detail Recorded Client Recorded Date Recorded By Document 05/23/23 10:54 [facility] Desktop 05/23/23 11:27 [facility] Document 05/30/23 10:50 [facility] Desktop 05/30/23 10:52 F 05/23/23 05/30/23 10:54 10:50 Wound Center Nurse 2 #6 RT HEEL -Time 10:54 -Correct Patient Yes -Correct Side, Site, Position Yes -Correct Procedure Yes -Procedure Performed Yes -Type of Procedure Debridement -Clinical Debridement Epidermis / Dermis -Tissue Removed Epidermis -Post Debridement (cm) - Length 3 0.1 -Post Debridement (cm) - Width 3 0.1 -Post Debridement (cm) - Depth 0.1 0.1 -Total Square (Post) (cm) 9 0.01 -Area of Debridement (cm) - Length 3 0.1 -Area of Debridement (cm) - Width 3 0.1 -Total Square (Area) (cm) 9 0.01 -Tunneling No No -Undermining/Tunneling No No -Circular Undermining No No -Wound/Ulcer Outcome Not Healed Not Healed -Ulcer Cleansing Rinsed/ Irrigated with Saline -Foul Odor after Cleansing No -Bioengineered Tissue No -Bleeding Controlled with Pressure -Treatment Response Procedure Tolerated Well -Assistive Device(s) Wheelchair -Debridement - Open, 1st 20sq cm Yes Pain Scale: 0-10 Numeric Is Patient Pain Free? Yes Yes WC - Nurse 3 - General Ulcer D/C NN Start: 05/23/23 10:22 Freq: Status: Active Protocol: Activity Type Activity Date Activity User E-sign Co-sign Detail Recorded Client Recorded Date Recorded By Document 05/30/23 10:55 DL Desktop 05/30/23 10:57 DL 05/30/23 10:55 Wound Care Center Nurse 3 #6 RT HEEL -Ulcer Cleansing Rinsed/ Irrigated with Saline -Foul Odor after Cleansing No -Primary Dressing Applied Mepilex Border -Mepilex Border 1 Right -Other tubigrip Treatment Response Procedure Tolerated Well Pain Scale: 0-10 Numeric Is Patient Pain Free? Yes WC - Visit Discharge Discharge Condition Stable Ambulatory Status Wheelchair Transportation Private Auto Assessment/Plan Assessment/Plan (1) Blister of heel: CODE(S): S90.829A - Blister (nonthermal), unspecified foot, initial encounter (2) Swelling of right foot: CODE(S): M79.89 - Other specified soft tissue disorders (3) Localized edema: CODE(S): R60.0 - Localized edema (4) Spina bifida: CODE(S): Q05.9 - Spina bifida, unspecified (5) Paraplegia: CODE(S): G82.20 - Paraplegia, unspecified (6) Non-pressure chronic ulcer of other part of right foot limited to breakdown of skin: CODE(S): L97.511 - Non-pressure chronic ulcer of other part of right foot limited to breakdown of skin PLAN: Plan Patient seen and evaluated Ulceration underwent debridement as noted in the clinical panel above. Ulceration measures 0.1 cm x 0.1 cm x 0.1 cm. No signs of infection. Ulceration is superficial in nature at her previous visit, there is noted epithelialization with decreased wound size today. Discussed continued protection with dry sterile dressing/nurse hat. Tubigrip compression applied to right lower extremity. Discussed daily dressing changes with patient today. Discussed proper offloading to ensure the heel floats while at rest via pillow bump. Discussed proper fitting shoe gear today. Encouraged shoes to be worn at all times due to inability to feel. Discussed importance of proper fitting to decrease sites of pressure or rubbing. Discussed use of compression stockings to aid in edema control. Discussed signs and symptoms of infection. Discussed if she notices redness increasing around the wound site or spreading up the leg, purulent drainage from the wound site, increasing foul odor from the wound, or if she experiences fever greater than 101 degree accompanied by nausea, vomiting, chills these are signs of progressing infection and she should report to the ED to receive IV antibiotics and further evaluation. The following work up and care recommendations were made: Dressing: dry sterile dressing, Tubigrip compression Wash: Soap and water Tissue growth optimization: None Offload: Float heel with pillow pump at night to ensure no pressure to the back of the heel. Vascular: Weakly palpable DP and PT pulses secondary to paraplegic status however this is not affecting healing at this time. Edema: There is mild edema secondary to a paraplegic status. Recommended continued use of Tubigrip compression with eventual transition to compression stocking. Infection: No signs of infection Pain: May take [id number] Tylenol for any discomfort Host factors: DM type I, spina bifida, paraplegic status I answered all the patient's questions. To return to the wound healing center in 1 week or call sooner if the patient has any questions or concerns.
== END 2023-06-09 23:59 | disposition home or self-care (01) ==
LOC: WC 10:00
PROVIDERS: PCP Internal Medicine; Referring Provider Internal Medicine; Visit Provider Student in an Organized Health Care Education/Training Program
DX: E11.621 Type 2 diabetes mellitus with foot ulcer (principal); G82.20 Paraplegia, unspecified; L97.511 Non-pressure chronic ulcer of other part of right foot limited to breakdown of skin; Q05.9 Spina bifida, unspecified; Z79.4 Long term (current) use of insulin; E78.00 Pure hypercholesterolemia, unspecified; R60.0 Localized edema; D63.8 Anemia in other chronic diseases classified elsewhere; Z79.899 Other long term (current) drug therapy
CPT/HCPCS: 97597; 99213; 99214; G0463

== ENCOUNTER 2023-06-27 11:15 | Outpatient (RCR) | payer MEDICARE, MEDICAID, SELFPAY ==
[2023-06-10 00:51] VITALS: BP 121/73; PULSE 97; RESP 20; TEMP 35.7; BMI 30.5
[2023-06-13 11:23] VITALS: BP 130/66; PULSE 80; RESP 18; TEMP 36.5; BMI 30.5
--- NOTE | 2023-06-13 13:08 | PCM.WC.PN ---
History of Present Illness Date of Service: 06/13/23 Chief Complaint: Right foot bilster/wound History of Wound: Ms. Walker is a very pleasant 43-year-old with a history of spina bifida with history of recurrent decubitus ulcers, and paraplegia. She states 3 weeks ago she developed a blister on the back of her right heel which did fill with fluid but then did sink back down flush with skin. She did see her PCP 05/17/2023 who felt given localized redness and swelling in the lower extremity possible infection may be present and she should report to the ED. Patient did follow-up in the ED and underwent evaluation with mildly elevated CRP and ESR with negative radiographic signs for osteomyelitis. She is noted to have some chills and general well and feeling at this time however did also have a UTI with positive urine culture and had been taking Macrobid. Right heel wound demonstrated no signs of infection in the ED and thus she was instructed to follow-up with the wound care center for continued care. Patient currently denies N/V/F/chills. She denies further complaints. Subjective Subjective This is a 43-year-old female who is following to the wound care center today for follow-up of right heel ulceration. Patient states that she is continue to pad and protect the area following removal of the blister on the right heel. States she is doing very well but thought she might have developed another blister. Denies constitutional symptoms. Denies further complaints. Objective Data Objective Data Vital Signs: Vital Signs Temp Pulse Resp BP 97.7 F L 80 18 130/66 H 06/13/23 11:23 06/13/23 11:23 06/13/23 11:23 06/13/23 11:23 Weight: 45.359 kg Body Mass Index (BMI) 30.5 Physical Exam Const alert, oriented x3 and no apparent distress General Appearance: cooperative HEENT normocephalic Eyes General Eye: normal appearance of both eyes Neck General: normal visual inspection Lymph Lymphatic: no lymphadenopathy noted and no lymphedema noted Resp normal respiratory effort Cardio regular rate and regular rhythm Extremity normal capillary refill, no joint enlargement, no calf tenderness and no pedal edema Extremity Narrative: Right lower extremity: Vascular: DP and PT pulses weakly palpable bilateral secondary to paraplegic status. CFT less than 4 seconds to digits bilateral. Temperature gradient is warm to cool bilateral. Hair growth is diminished to the digits. Neurological: Absent lower extremity sensation secondary to paraplegic status Musculoskeletal: Muscle strength 0/5 secondary to paraplegic status. Dermatologic: There is bilateral lower extremity edema right greater than left about the foot. Right posterior heel demonstrates superficial blister with some eschar/hematoma under the blistered skin. Post removal of blistered skin demonstrates healthy dermal layer. No signs of infection. The site continues to improve with new epithelialization versus previous visit. Skin no rashes or lesions noted, skin turgor normal and no jaundice General Skin Exam: venous stasis Neuro oriented x3 Gait (Neuro): other Assisted by wheelchair secondary to paraplegic status Debridement Note Debridement Note No debridement was completed: No debridement was completed today Post-Debridement Measurements and Additional Note: Post-Debridement Measurements/Treatment - Nurse 1 - General Ulcer Assessment Start: 06/13/23 11:22 Freq: Status: Active Protocol: .LOWEXT Activity Type Activity Date Activity User E-sign Co-sign Detail Recorded Client Recorded Date Recorded By Document 06/13/23 11:23 DL Desktop 06/13/23 11:31 DL 06/13/23 11:23 - Today's Visit Information Type of service Follow-up Visit (Physician/SOFT SUGAR CUTTER ) Arrival Mode Wheelchair Transfer Assist (Other) x1 Patient Identification Verified (Name & Yes ) Patient Requires Transmission-Based No Precautions Finger Stick Blood Sugar(mg/dl) (if 300 indicated): Blood Sugar Stated by Patient Height and Weight Body Mass Index (BMI) 30.5 BMI Classification Obese Vital Signs Temperature (97.8 F-99.1 F) 97.7 F L Temperature Source Temporal Pulse Rate (60-100) 80 Pulse Location Monitor Respiratory Rate (12-18) 18 Respiratory rate source Observation Blood Pressure (90/60-120/80) 130/66 H Blood Pressure Mean (mm Hg) 87 Source Monitor History Since Last Visit- (Skip if this is Patient's initial visit) Have you changed medications since your No last visit? Any new allergies or adverse reactions No Had a fall/change in ADL's that may No increase risk of falls Signs or symptoms of abuse and/or No neglect since last visit Have you been in the hospital since your No last visit? Has dressing in place as prescribed Yes Has compression in place as prescribed Yes Has offloadiing in place as prescribed Yes Experienced any changes in pain level or No management Pain Scale: 0-10 Numeric Is Patient Pain Free? Yes WC - Nurse 1 - General Ulcer Measurement Start: 06/13/23 11:22 Freq: Status: Active Protocol: Activity Type Activity Date Activity User E-sign Co-sign Detail Recorded Client Recorded Date Recorded By Document 06/13/23 11:23 DL Desktop 06/13/23 11:31 DL 06/13/23 11:23 Wound Center Nurse 1 #6 RT HEEL -Current Size (cm) - Length 0.1 -Current Size (cm) - Width 0.1 -Current Size (cm) - Depth 0.1 -Total Square Cm 0.01 -Exudate Amt None Present -Wound Margin Distinct, Outline Attached -Granulation Amt Large (67-100%) -Granulation Quality [place] -Necrosis Amt None Present (0 %) -Structure Exposed N/A -Texture (Cassandra-wound Skin Appearance) Localized Edema -Moisture (Cassandra-wound Skin Appearance) No Abnormality -Color (Cassandra-wound Skin Appearance) Erythema -Temperature (Cassandra-wound Skin No Abnormality Appearance) (Pt Warm) -Tenderness on Palpation (Cassandra-wound No Skin Appearance) -Ulcer Cleansing Rinsed/ Irrigated with Saline -Foul Odor after Cleansing No -Wound Comment(s) intact blistered area Right Calf (cm) 26.3 Right Ankle (cm) 18.4 WC - Nurse 2 - General Ulcer CM Notes Start: 06/13/23 11:22 Freq: Status: Active Protocol: Activity Type Activity Date Activity User E-sign Co-sign Detail Recorded Client Recorded Date Recorded By Document 06/13/23 12:01 [facility] Desktop 06/13/23 12:03 [facility] 06/13/23 12:01 Wound Center Nurse 2 #6 RT HEEL -Post Debridement (cm) - Length 0.1 -Post Debridement (cm) - Width 0.1 -Post Debridement (cm) - Depth 0.1 -Total Square (Post) (cm) 0.01 -Area of Debridement (cm) - Length 0.1 -Area of Debridement (cm) - Width 0.1 -Total Square (Area) (cm) 0.01 -Wound/Ulcer Outcome Not Healed Pain Scale: 0-10 Numeric Is Patient Pain Free? Yes VIJAYA - Nurse 3 - General Ulcer D/C NN Start: 06/13/23 11:22 Freq: Status: Active Protocol: Activity Type Activity Date Activity User E-sign Co-sign Detail Recorded Client Recorded Date Recorded By Document 06/13/23 12:14 DL Desktop 06/13/23 12:17 DL 06/13/23 12:14 Wound Care Center Nurse 3 #6 RT HEEL -Foul Odor after Cleansing No -Primary Dressing Applied Mepilex Border -Mepilex Border 1 Right -Tubular Bandage Single Layer -Size of Tubigrip Used Size D -Size D ($) 1 Treatment Response Procedure Tolerated Well Pain Scale: 0-10 Numeric Is Patient Pain Free? Yes WC - Visit Discharge Discharge Condition Stable Ambulatory Status Wheelchair Transportation Private Auto Assessment/Plan Assessment/Plan (1) Non-pressure chronic ulcer of other part of right foot limited to breakdown of skin: CODE(S): L97.511 - Non-pressure chronic ulcer of other part of right foot limited to breakdown of skin (2) Type 1 diabetes mellitus: CODE(S): E10.9 - Type 1 diabetes mellitus without complications QUALIFIERS: Diabetes mellitus complication status: with hyperglycemia Qualified Code(s): E10.65 - Type 1 diabetes mellitus with hyperglycemia (3) Anxiety and depression: CODE(S): F41.9 - Anxiety disorder, unspecified; F32.A - Depression, unspecified (4) Spina bifida: CODE(S): Q05.9 - Spina bifida, unspecified (5) Venous insufficiency (chronic) (peripheral): CODE(S): I87.2 - Venous insufficiency (chronic) (peripheral) (6) Paraplegia: CODE(S): G82.20 - Paraplegia, unspecified (7) Blister of foot: CODE(S): S90.829A - Blister (nonthermal), unspecified foot, initial encounter PLAN: Plan Patient seen and evaluated Ulceration demonstrates fresh epithelialized skin over the right heel. There is no new blister formation to the right foot.. No signs of infection. Discussed continued protection with dry sterile dressing/nurse hat. Tubigrip compression applied to right lower extremity. Discussed daily dressing changes with patient today. Discussed proper offloading to ensure the heel floats while at rest via pillow bump. Discussed proper fitting shoe gear today. Encouraged shoes to be worn at all times due to inability to feel. Discussed importance of proper fitting to decrease sites of pressure or rubbing. Discussed with her that while her ulcerative site has healed we will still follow to ensure no new blister formation occurs over next few weeks. Discussed use of compression stockings to aid in edema control. Discussed signs and symptoms of infection. Discussed if she notices redness increasing around the wound site or spreading up the leg, purulent drainage from the wound site, increasing foul odor from the wound, or if she experiences fever greater than 101 degree accompanied by nausea, vomiting, chills these are signs of progressing infection and she should report to the ED to receive IV antibiotics and further evaluation. The following work up and care recommendations were made: Dressing: dry sterile dressing, Tubigrip compression Wash: Soap and water Tissue growth optimization: None Offload: Float heel with pillow pump at night to ensure no pressure to the back of the heel. Vascular: Weakly palpable DP and PT pulses secondary to paraplegic status however this is not affecting healing at this time. Edema: There is mild edema secondary to a paraplegic status. Recommended continued use of Tubigrip compression with eventual transition to compression stocking. Infection: No signs of infection Pain: May take [id number] Tylenol for any discomfort Host factors: DM type I, spina bifida, paraplegic status I answered all the patient's questions. To return to the wound healing center in 2 weeks or call sooner if the patient has any questions or concerns.
[2023-06-27 11:24] VITALS: BP 147/68; PULSE 96; RESP 20; TEMP 36; BMI 30.5
--- NOTE | 2023-06-27 12:57 | PCM.WC.PN ---
History of Present Illness Date of Service: 06/27/23 Chief Complaint: Right foot bilster/wound History of Wound: Ms. Walker is a very pleasant 43-year-old with a history of spina bifida with history of recurrent decubitus ulcers, and paraplegia. She states 3 weeks ago she developed a blister on the back of her right heel which did fill with fluid but then did sink back down flush with skin. She did see her PCP 05/17/2023 who felt given localized redness and swelling in the lower extremity possible infection may be present and she should report to the ED. Patient did follow-up in the ED and underwent evaluation with mildly elevated CRP and ESR with negative radiographic signs for osteomyelitis. She is noted to have some chills and general well and feeling at this time however did also have a UTI with positive urine culture and had been taking Macrobid. Right heel wound demonstrated no signs of infection in the ED and thus she was instructed to follow-up with the wound care center for continued care. Patient currently denies N/V/F/chills. She denies further complaints. Subjective Subjective This is a 43-year-old female who is following to the wound care center today for follow-up of right heel ulceration. Patient states that she is continue to pad and protect the area following removal of the blister on the right heel. States she is doing very well but thought she might have developed another blister on the heel and on the lateral thigh/leg of the Right lower extremity. Denies constitutional symptoms. Denies further complaints. Objective Data Objective Data Vital Signs: Vital Signs Temp Pulse Resp BP 96.8 F L 96 20 H 147/68 H 06/27/23 11:24 06/27/23 11:24 06/27/23 11:24 06/27/23 11:24 Weight: 45.359 kg Body Mass Index (BMI) 30.5 Physical Exam Const alert, oriented x3 and no apparent distress General Appearance: cooperative HEENT normocephalic Eyes General Eye: normal appearance of both eyes Neck General: normal visual inspection Lymph Lymphatic: no lymphadenopathy noted and no lymphedema noted Resp normal respiratory effort Cardio regular rate and regular rhythm Extremity normal capillary refill, no joint enlargement, no calf tenderness and no pedal edema Extremity Narrative: Right lower extremity: Vascular: DP and PT pulses weakly palpable bilateral secondary to paraplegic status. CFT less than 4 seconds to digits bilateral. Temperature gradient is warm to cool bilateral. Hair growth is diminished to the digits. Neurological: Absent lower extremity sensation secondary to paraplegic status Musculoskeletal: Muscle strength 0/5 secondary to paraplegic status. Dermatologic: There is bilateral lower extremity edema right greater than left about the foot. Right posterior heel demonstrates superficial blister with roughened skin overlying previous healthy dermal layer. Post removal of blistered skin demonstrates healthy dermal layer. No signs of infection. The site did regress with new blister formation versus previous visit. Skin no rashes or lesions noted, skin turgor normal and no jaundice General Skin Exam: venous stasis Neuro oriented x3 Gait (Neuro): other Assisted by wheelchair secondary to paraplegic status Debridement Note Debridement Note Wound debrided: Right right heel Laterality: Right Wound Grade/Stage: Grey stage I Type of Debridement: Excisional debridement Anesthesia Used: - (None secondary to paraplegic status) Depth: Down to and including healthy tissue and in the subcutaneous layer (Bleeding dermal layer with some subQ present) Percentage of wound debrided: 100 Instrument Used: #15 blade Tissue Removed: Fibrous, devitalized subcutaneous, biofilm, slough Severity: Limited To Skin Breakdown (Into bleeding dermal layer) Amount of bleeding with debridement: Mild Bleeding Controlled with: Compression and gauze Patient tolerated procedure: Patient tolerated procedure well Post-Debridement Measurements and Additional Note: Post-Debridement Measurements/Treatment - Nurse 1 - General Ulcer Assessment Start: 06/13/23 11:22 Freq: Status: Active Protocol: [email or web address] Activity Type Activity Date Activity User E-sign Co-sign Detail Recorded Client Recorded Date Recorded By Document 06/13/23 11:23 DL Desktop 06/13/23 11:31 DL Document 06/27/23 11:24 DL Desktop 06/27/23 11:33 DL 06/13/23 06/27/23 11:23 11:24 - Today's Visit Information Type of service Follow-up Visit Follow-up Visit (Physician/RESIDENTIAL SUPPORT SPECIALIST (Physician/RESIDENTIAL SUPPORT SPECIALIST ) ) Arrival Mode Wheelchair Wheelchair Transfer Assistance None Transfer Assist (Other) x1 Patient Identification Verified (Name & Yes Yes ) Patient Requires Transmission-Based No No Precautions Finger Stick Blood Sugar(mg/dl) (if 300 indicated): Blood Sugar Stated by Patient Height and Weight Body Mass Index (BMI) 30.5 30.5 BMI Classification Obese Obese Vital Signs Temperature (97.8 F-99.1 F) 97.7 F L 96.8 F L Temperature Source Temporal Temporal Pulse Rate (60-100) 80 96 Pulse Location Monitor Monitor Respiratory Rate (12-18) 18 20 H Respiratory rate source Observation Observation Blood Pressure (90/60-120/80) 130/66 H 147/68 H Blood Pressure Mean (mm Hg) 87 94 Source Monitor Monitor History Since Last Visit- (Skip if this is Patient's initial visit) Have you changed medications since your No No last visit? Any new allergies or adverse reactions No No Had a fall/change in ADL's that may No No increase risk of falls Signs or symptoms of abuse and/or No No neglect since last visit Have you been in the hospital since your No No last visit? Has dressing in place as prescribed Yes Yes Has compression in place as prescribed Yes Yes Has offloadiing in place as prescribed Yes Yes Experienced any changes in pain level or No No management Pain Scale: 0-10 Numeric Is Patient Pain Free? Yes Yes WC - Nurse 1 - General Ulcer Measurement Start: 06/13/23 11:22 Freq: Status: Active Protocol: Activity Type Activity Date Activity User E-sign Co-sign Detail Recorded Client Recorded Date Recorded By Document 06/13/23 11:23 DL Desktop 06/13/23 11:31 DL Document 06/27/23 11:24 DL Desktop 06/27/23 11:33 DL 06/13/23 06/27/23 11:23 11:24 Wound Center Nurse 1 #6 RT HEEL cluster -Current Size (cm) - Length 0.1 0.1 -Current Size (cm) - Width 0.1 0.1 -Current Size (cm) - Depth 0.1 0.1 -Total Square Cm 0.01 0.01 -Exudate Amt None Present None Present -Wound Margin Distinct, Flat & Intact Outline Attached -Granulation Amt Large (67-100%) Large (67-100%) -Granulation Quality [place] N/A -Necrosis Amt None Present (0 None Present (0 %) %) -Structure Exposed N/A N/A -Texture (Cassandra-wound Skin Appearance) Localized Edema Scarring -Moisture (Cassandra-wound Skin Appearance) No Abnormality No Abnormality -Color (Cassandra-wound Skin Appearance) Erythema Ecchymosis -Temperature (Cassandra-wound Skin No Abnormality No Abnormality Appearance) (Pt Warm) (Pt Warm) -Tenderness on Palpation (Cassandra-wound No No Skin Appearance) -Ulcer Cleansing Rinsed/ Rinsed/ Irrigated with Irrigated with Saline Saline -Foul Odor after Cleansing No No -Wound Comment(s) intact blistered area Right Calf (cm) 26.3 22.3 Right Ankle (cm) 18.4 17.8 WC - Nurse 2 - General Ulcer CM Notes Start: 06/13/23 11:22 Freq: Status: Active Protocol: Activity Type Activity Date Activity User E-sign Co-sign Detail Recorded Client Recorded Date Recorded By Document 06/13/23 12:01 BMF Desktop 06/13/23 12:03 BM Document 06/27/23 11:43 [facility] Desktop 06/27/23 12:00 F 06/13/23 06/27/23 12:01 11:43 Wound Center Nurse 2 #6 RT HEEL cluster -Time 11:45 -Correct Patient Yes -Correct Side, Site, Position Yes -Correct Procedure Yes -Procedure Performed Yes -Type of Procedure Debridement -Clinical Debridement Subcutaneous -Tissue Removed Subcutaneous -Post Debridement (cm) - Length 0.1 3 -Post Debridement (cm) - Width 0.1 6.5 -Post Debridement (cm) - Depth 0.1 0.1 -Total Square (Post) (cm) 0.01 19.5 -Area of Debridement (cm) - Length 0.1 3 -Area of Debridement (cm) - Width 0.1 6.5 -Total Square (Area) (cm) 0.01 19.5 -Tunneling No -Undermining/Tunneling No -Circular Undermining No -Wound/Ulcer Outcome Not Healed Not Healed -Ulcer Cleansing Rinsed/ Irrigated with Saline -Foul Odor after Cleansing No -Bioengineered Tissue No -Bleeding Controlled with Pressure -Treatment Response Procedure Tolerated Well -Debridement - Subq, 1st 20sq cm Yes Pain Scale: 0-10 Numeric Is Patient Pain Free? Yes Yes VIJAYA - Nurse 3 - General Ulcer D/C NN Start: 06/13/23 11:22 Freq: Status: Active Protocol: Activity Type Activity Date Activity User E-sign Co-sign Detail Recorded Client Recorded Date Recorded By Document 06/13/23 12:14 DL Desktop 06/13/23 12:17 DL Document 06/27/23 12:14 DL Desktop 06/27/23 12:17 DL 06/13/23 06/27/23 12:14 12:14 Wound Care Center Nurse 3 #6 RT HEEL cluster -Ulcer Cleansing Rinsed/ Irrigated with Saline -Foul Odor after Cleansing No No -Primary Dressing Applied Mepilex Border -Other Dressing bacitracin -Primary Dressing Covered/Secured with Dry Gauze & Roll Gauze, Secured with Tape -Mepilex Border 1 Right -Tubular Bandage Single Layer -Size of Tubigrip Used Size D -Size D ($) 1 Treatment Response Procedure Procedure Tolerated Well Tolerated Well Pain Scale: 0-10 Numeric Is Patient Pain Free? Yes Yes WC - Visit Discharge Discharge Condition Stable Stable Ambulatory Status Wheelchair Wheelchair Transportation Private Auto Private Auto Facility Type Home Health Orders Sent Yes Assessment/Plan Assessment/Plan (1) Non-pressure chronic ulcer of other part of right foot limited to breakdown of skin: CODE(S): L97.511 - Non-pressure chronic ulcer of other part of right foot limited to breakdown of skin (2) Type 1 diabetes mellitus: CODE(S): E10.9 - Type 1 diabetes mellitus without complications QUALIFIERS: Diabetes mellitus complication status: with hyperglycemia Qualified Code(s): E10.65 - Type 1 diabetes mellitus with hyperglycemia (3) Anxiety and depression: CODE(S): F41.9 - Anxiety disorder, unspecified; F32.A - Depression, unspecified (4) Spina bifida: CODE(S): Q05.9 - Spina bifida, unspecified (5) Venous insufficiency (chronic) (peripheral): CODE(S): I87.2 - Venous insufficiency (chronic) (peripheral) (6) Paraplegia: CODE(S): G82.20 - Paraplegia, unspecified (7) Blister of foot: CODE(S): S90.829A - Blister (nonthermal), unspecified foot, initial encounter PLAN: Plan Patient seen and evaluated Ulceration demonstrates new blister cluster over the right heel. Ulceration measures 3.0 cm x 6.5 cm x 0.1 cm. No signs of infection. Triple antibiotic ointment applied and dressed with dry sterile dressing. Discussed continued protection with dry sterile dressing/nurse hat. Tubigrip compression applied to right lower extremity. Discussed daily dressing changes with patient today. Discussed proper offloading to ensure the heel floats while at rest via pillow bump. Discussed proper fitting shoe gear today. Encouraged shoes to be worn at all times due to inability to feel. Discussed importance of proper fitting to decrease sites of pressure or rubbing. Discussed with her that while her ulcerative site has healed we will still follow to ensure no new blister formation occurs over next few weeks. Discussed use of compression stockings to aid in edema control. Discussed referral to dermatology for possible starting of biologic to decrease bulla formation/development. She states she was previously going to see dermatology but got appointments confused and did miss the appointment. She is planning to reschedule for evaluation with dermatology. Discussed signs and symptoms of infection. Discussed if she notices redness increasing around the wound site or spreading up the leg, purulent drainage from the wound site, increasing foul odor from the wound, or if she experiences fever greater than 101 degree accompanied by nausea, vomiting, chills these are signs of progressing infection and she should report to the ED to receive IV antibiotics and further evaluation. The following work up and care recommendations were made: Dressing: Triple antibiotic ointment, dry sterile dressing, Tubigrip compression Wash: Soap and water Tissue growth optimization: None Offload: Float heel with pillow pump at night to ensure no pressure to the back of the heel. Vascular: Weakly palpable DP and PT pulses secondary to paraplegic status however this is not affecting healing at this time. Edema: There is mild edema secondary to a paraplegic status. Recommended continued use of Tubigrip compression with eventual transition to compression stocking. Infection: No signs of infection Pain: May take [id number] Tylenol for any discomfort Host factors: DM type I, spina bifida, paraplegic status I answered all the patient's questions. To return to the wound healing center in 1 weeks or call sooner if the patient has any questions or concerns.
== END 2023-07-09 23:59 | disposition home or self-care (01) ==
LOC: WC 11:15
PROVIDERS: PCP Internal Medicine; Referring Provider Internal Medicine; Visit Provider Student in an Organized Health Care Education/Training Program
DX: E10.622 Type 1 diabetes mellitus with other skin ulcer (principal); G82.20 Paraplegia, unspecified; L97.511 Non-pressure chronic ulcer of other part of right foot limited to breakdown of skin; Q05.9 Spina bifida, unspecified; E11.59 Type 2 diabetes mellitus with other circulatory complications; S90.8 Other superficial injuries of foot; I87.2 Venous insufficiency (chronic) (peripheral); X58.XXXS Exposure to other specified factors, sequela
CPT/HCPCS: 11042; 99213; G0463

== ENCOUNTER → 2023-07-10 | Outpatient (CLI) | payer MEDICARE, MEDICAID, SELFPAY | END | disposition home or self-care (01) | LOC: LABSPEC 17:03 | PROVIDERS: PCP Internal Medicine; Referring Provider Nurse Practitioner Women's Health; Visit Provider Nurse Practitioner Women's Health | DX: N89.8 Other specified noninflammatory disorders of vagina (principal) | CPT/HCPCS: 87070; 87205 ==

== ENCOUNTER 2023-07-15 20:28 | Emergency (ER) | payer MEDICARE, MEDICAID, SELFPAY ==
[2023-07-15 20:28] VITALS: BP 148/76; PULSE 93; RESP 16; TEMP 36.6; O2SAT 97; BMI 32.2
[2023-07-15 20:33] VITALS: BP 148/76; PULSE 92; RESP 16; TEMP 36.6; O2SAT 97
--- NOTE | 2023-07-15 21:47 | EDS_ITS ---
HPI History of Present Illness Chief Complaint: Hyperglycemia Informant: patient Onset/Context/Timing Onset: Today Context: Sudden Onset Timing: Continuous Quality: Open wound Location: Sacrum Worsened by: Nothing Relieved by: Nothing Narrative Narrative: Patient presents with elevated blood sugars that began today. Patient states that it has gradually gotten worse. Patient states that today however it was up over 500. Patient states her blood sugars have been in the 200s recently. Patient states that her caregivers noticed a wound on her sacrum today. Patient denies any fevers or chills. Patient denies any nausea or vomiting. Patient has a history of spina bifida and has a suprapubic catheter in place. Patient denies any dysuria or frequency. 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 Non-smoker Osteomyelitis of right side of pelvis Pressure ulcer of sacral region, stage 4 Pressure ulcer of sacral region, unstageable 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, stage 4 Skin necrosis Spina bifida of lumbar spine Swelling of right foot Type 1 diabetes mellitus Urinary incontinence Uses wheelchair Vertigo Home Medications blood sugar diagnostic (OneTouch Verio test strips) #120 ea 05/31/22 [Rx Last Taken Unknown] blood-glucose transmitter (Xanofi G6 Transmitter device) #1 ea 10/10/22 [Rx Last Taken Unknown] pen needle, diabetic 32 gauge x 5/32 (BD Ultra-Fine Charla Pen Needle) #400 ea 01/07/23 [Rx Last Taken Unknown] insulin syringe-needle U-100 0.3 mL 31 gauge x 5/16 (BD Insulin Syringe Ultra- Fine) #100 ea 01/15/23 [Rx Last Taken Unknown] ferrous sulfate 325 mg (65 mg iron) tablet 325 mg PO DAILY #90 tabs 03/12/23 [Rx Last Taken 03/20/23] oxybutynin chloride 10 mg tablet,extended release 24 hr 10 mg PO DAILY 03/20/23 [History Last Taken 03/20/23] insulin glargine 100 unit/mL subcutaneous solution 15 unit (0.15 mL) subcut QAM #10 mL 05/22/23 [Rx Last Taken Unknown] insulin aspart U-100 100 unit/mL (3 mL) subcutaneous pen 8 unit (0.08 mL) subcut TID #15 mL 05/28/23 [Rx Last Taken Unknown] escitalopram oxalate 5 mg tablet (Lexapro) 5 mg PO DAILY #30 tabs 07/01/23 [Rx Last Taken Unknown] clotrimazole 2 % vaginal cream (Clotrimazole 3 Day) 1 appful vaginal QHS 3 days #21 grams 07/15/23 [Rx Last Taken Unknown] cephalexin 500 mg capsule 500 mg PO Q6 #40 CAPSULES 07/16/23 [Rx Last Taken Unknown] Allergy/AdvReac Type Severity Reaction Status Date / Time trospium Allergy Intermediate Hives Verified 07/10/23 14:50 Latex, Natural Rubber Allergy Hives Verified 07/10/23 14:50 Family History Other Cancer Diabetes FH: defects Surgical History History of brain surgery History of creation of ostomy History of release of tendon Hx of surgical procedure Status post repair of complex wound Social History current occupational status: disabled Smoking Status: Never smoker alcohol intake: current alcohol intake frequency: holidays/special occasions only Alcohol type: wine substance use type: does not use do you feel safe at home: Yes additional social history: In wheel chair ROS ROS ED Constitutional Constitutional ED: Denies chills or fever(s) Eyes Eyes: Denies blurry vision or change in vision ENT ENT ED: Denies rhinorrhea or sore throat Cardiovascular Cardiovascular: Denies chest pain or palpitations Respiratory/Chest Respiratory/Chest: Denies cough or dyspnea Gastrointestinal Gastrointestinal: Denies nausea or vomiting Genitourinary Genitourinary ED: Denies dysuria or hematuria Musculoskeletal Musculoskeletal: Denies back pain or neck pain Integumentary Denies abscess or rash Neurologic Neurologic: Denies headache(s) or weakness Allergic/Immunologic Allergic/Immunologic ED: Denies mouth swelling or urticaria EXAM Physical Exam Const Vital Signs: 07/15/23 20:28 07/15/23 20:33 07/15/23 20:47 Temperature 97.9 F 97.9 F Temperature Source Oral Oral Pulse Rate 93 92 Respiratory Rate 16 16 Respiratory Effort Normal Blood Pressure 148/76 H 148/76 H Blood Pressure Mean 100 100 Pulse Ox 97 97 Oxygen Delivery Method Room Air Room Air 07/15/23 22:44 07/15/23 22:44 07/15/23 23:00 Temperature 97.5 F L 97.0 F L Temperature Source Temporal Temporal Pulse Rate 91 87 86 Respiratory Rate 16 16 18 Respiratory Effort Blood Pressure 165/80 H 165/80 H 158/144 H Blood Pressure Mean 108 108 148 Pulse Ox 97 94 98 Oxygen Delivery Method Room Air Room Air Room Air 07/16/23 00:00 07/16/23 00:00 Temperature 98.0 F Temperature Source Temporal Pulse Rate 78 78 Respiratory Rate 15 15 Respiratory Effort Blood Pressure 156/140 H 156/140 H Blood Pressure Mean 145 145 Pulse Ox 99 99 Oxygen Delivery Method Room Air Room Air Positive well nourished and well developed General Appearance ED: well developed and NAD HEENT Reports moist mucous membranes Neck supple and no JVD Resp normal respiratory effort and clear to auscultation bilaterally Cardio regular rate and regular rhythm GI non-tender and non-distended Palpation: soft Neuro oriented x3 and CN's II-XII intact bilaterally Sensorium / Orientation: alert Psych mental status grossly normal Skin Skin Narrative: There is an open wound over the sacrum. It appears to be a stage II cubitus ulcer. There is some mild surrounding erythema. MDM MDM MDM Narrative Medical decision making narrative: Differential diagnosis includes hyperglycemia, DKA, infected decubitus ulcer, and urinary tract infection. CBC will be obtained to assess for leukocytosis and anemia. Basic metabolic profile will be obtained to assess for electrolyte abnormality, hyperglycemia, and renal function. Serum acetone will be obtained to assess for DKA. Wound culture will be obtained to assess for wound infection. Serum lactate will be obtained to assess for sepsis. Lab Data Attestation: I reviewed the patient's lab results. Lab results narrative: CBC was reviewed and was within normal limits. Basic metabolic profile was reviewed. Glucose was slightly elevated at 274. Potassium was slightly low at 3.2. Serum acetone level was reviewed and was negative. Urinalysis was reviewed. There are positive nitrates. Leukocyte esterase was 100 with 2+ bacteria. There is 0-5 white blood cells and 0 epithelial cells noted. There is 4+ yeast. Lactate was reviewed and was slightly elevated at 2.5. Labs: Laboratory Results - last 24 hr 07/15/23 07/15/23 07/15/23 20:20 23:02 23:18 WBC 8.4 RBC 5.21 Hgb 14.3 Hct 45.3 MCV 86.9 MCH 27.4 MCHC 31.6 L RDW Std Deviation 39.9 RDW Coeff of Maurizio 12.7 Plt Count 338 MPV 9.7 Immature Gran % (Auto) 0.400 Neut % (Auto) 73.6 H Lymph % (Auto) 17.2 L [place] % (Auto) 6.5 Eos % (Auto) 1.8 Baso % (Auto) 0.5 Absolute Neuts (auto) 6.2 Absolute Lymphs (auto) 1.45 Nucleated RBC % 0 Sodium 137 Potassium 3.2 L Chloride 103 Carbon Dioxide 26.0 Anion Gap 8 BUN 15 Creatinine 0.88 Estim Creat Clear Calc 58.60 Est GFR (MDRD) Af Amer 90 Est GFR (MDRD) Non-Af 75 BUN/Creatinine Ratio 17.1 Glucose 274 H Lactic Acid 2.5 H* Calcium 9.1 Urine Color Yellow Urine Clarity Cloudy Urine pH 5.0 Ur Specific [place] 1.015 Urine Protein Negative Urine Glucose (UA) 1000 H Urine Ketones 15 H Urine Occult Blood 10 H Urine Nitrite Positive H Urine Bilirubin Negative Urine Urobilinogen Normal Ur Leukocyte Esterase 100 H Urine RBC 0 SEEN Urine WBC 0-5 SEEN Ur Squamous Epith Cells 0 SEEN Urine Bacteria 2+ Urine Mucus 0 SEEN Urine Yeast 4+ Acetone Level NEGATIVE Additional Tests and Interventions Additional Tests or Interventions: Urine culture was obtained. Treatment and Re-Evaluation :: IV line was established. Patient was advised of her findings. Patient was given a dose of Keflex here. This will cover for infected sacral decubitus ulcer as well as urinary tract infection. Patient is concerned about her suprapubic catheter. Patient states that she had an accident here in the emergency department where her sheets got wet. Patient does not think that her catheter is draining. We will attempt to irrigate the catheter. The catheter was unable to be irrigated. The catheter will be exchanged and replaced. Patient was instructed to follow-up with her primary care physician in 5 to 7 days. Patient was also given a referral to the wound care center. Patient was instructed to return if worse in any way. Patient understood and was agreeable with the plan. All questions were answered. Discharge Plan Triage Chief Complaint: Hyperglycemia ED Provider: Subhash Pace Dx/Rx/DC Orders Clinical Impression: Sacral decubitus ulcer, Spina bifida of lumbar spine, Type 1 diabetes mellitus, Urinary tract infection Instructions: ED Cystitis Female Adult, ED Simple Pressure Injury, ED Wound Care Prescriptions: New cephalexin [cephalexin] 500 mg capsule 500 mg PO Q6 Qty: 40 0RF No Action (DME) Dexcom G6 Transmitter Device See Rx Instructions .Route Qty: 1 0RF Rx Instructions: 1 transmitter q 90 days (DME) insulin syringe-needle U-100 [BD Insulin Syringe Ultra-Fine] 0.3 mL 31 gauge x 5/16 syringe See Rx Instructions .Route Qty: 100 3RF Rx Instructions: daily escitalopram oxalate [Lexapro] 5 mg tablet 5 mg PO DAILY Qty: 30 1RF oxybutynin chloride 10 mg tablet extended release 24hr 10 mg PO DAILY Patient Comments: take 1 tablet by mouth every morning (DME) OneTouch Verio test strips Strip See Rx Instructions .Route Qty: 120 5RF Rx Instructions: 4x/day (DME) pen needle, diabetic [BD Ultra-Fine Charla Pen Needle] 32 gauge x 5/32 needle See Rx Instructions .ROUTE .MEDSUPPLY Qty: 400 1RF Rx Instructions: 4 times daily ferrous sulfate 325 mg (65 mg iron) tablet 325 mg PO DAILY Qty: 90 0RF insulin glargine 100 unit/mL solution 15 unit subcut QAM Qty: 10 3RF insulin aspart U-100 100 unit/mL (3 mL) insulin pen 8 unit subcut TID Qty: 15 4RF Clotrimazole 3 Day 2 % cream 1 appful vaginal QHS 3 Days Qty: 21 0RF Primary Care Provider: Cosmo Smith Referrals: Cosmo Smith MD [Primary Care Provider] - 3-5 Days Wound,Center [Non-Staff] - 5-7 Days Disposition Disposition: Home, Self Care
[2023-07-15 22:18] LABS: Absolute Lymphocyte Count 1.45 X10^3/uL (0.83-4.51); Absolute Neutrophil Count 6.2 X10^3/uL (2.0-7.7); Basophil# 0.04 X10^3/uL; Basophil% 0.5 % (0-1); Eosinophil# 0.15 X10^3/uL; Eosinophils% 1.8 % (0-5); Hematocrit 45.3 % (37-47); Hemoglobin 14.3 g/dL (12.0-15.0); Lymphocyte # 1.45 X10^3/ul (0.83-4.51); Lymphocyte % 17.2 % (19-41); Mean Corp Hgb Conc 31.6 g/dL (32-36); Mean Corpuscular Hgb 27.4 pg (27.0-32.0); Mean Corpuscular Volume 86.9 fL (81-99); Mean Platelet Vol. 9.7 fl (6.2-12.0); Monocyte# 0.55 X10^3/uL; Monocyte% 6.5 % (0-10); NRBC Flagged by Analyzer 0 % (0-5); Neutrophil # 6.21 X10^3/uL (2.7-7.7); Neutrophil % 73.6 % (47-70); Platelet Count 338 K/mm3 (150-450); RBC Distribution Width CV 12.7 % (11.6-14.6); RBC Distribution Width SD 39.9 fl (35.1-43.9); Red Blood Count 5.21 M/mm3 (4.2-5.4); White Blood Count 8.4 K/mm3 (4.4-11.0)
[2023-07-15 22:26] LABS: Anion Gap 8 (5-15); BUN 15 mg/dL (7-18); BUN/Creat Ratio 17.1 RATIO (10-20); Calcium,Total 9.1 mg/dL (8.5-10.1); Chloride 103 mmol/L (98-107); Creatinine, Serum 0.88 mg/dL (0.55-1.02); EST Glomerular Filtration Rate 75 mL/min (>60); Est Glom Filt Rate - Afr Amer 90 mL/min (>60); Glucose 274 mg/dL (74-106); Potassium 3.2 mmol/L (3.5-5.1); Sodium Level 137 mmol/L (136-145)
[2023-07-15 22:44] VITALS: BP 165/80; PULSE 87; PULSE 91; RESP 16; TEMP 36.4; O2SAT 94; O2SAT 97
[2023-07-15 23:00] VITALS: BP 158/144; PULSE 86; RESP 18; TEMP 36.1; O2SAT 98
[2023-07-15 23:08] LABS: Mucous, Urine 0 SEEN /hpf (<or=2+); Red Blood Cells-Urine 0 SEEN /hpf (0-5); Squamous Epithelial Cells - UA 0 SEEN /hpf (5-10)
[2023-07-15 23:14] LABS: Color, Urine Yellow (Yellow); Glucose, Dipstick 1000 mg/dl (Normal); Ketone-Dipstick 15 mg/dl (Negative); Leukocyte Esterase-Dipstick 100 /ul (Negative); Nitrite-Dipstick Positive (Negative); Occult Blood-Urine 10 /ul (Negative); Protein-Dipstick Negative (Negative); Specific Gravity, Urine 1.015 (1.002-1.030); Urine Bilirubin Dipstick Negative (Negative); Urine Clarity Cloudy (Clear); Urine Urobilinogen Normal (Normal)
[2023-07-15 23:20] LABS: Bacteria 2+ /hpf (None Seen); White Blood Cells 0-5 SEEN /hpf (0-5); Yeast-Urine 4+ /hpf (None Seen)
[2023-07-16] VITALS: BP 156/140; PULSE 78; RESP 15; TEMP 36.7; O2SAT 99
[2023-07-16 00:06] LABS: Lactic Acid 2.5 mmol/L (0.4-1.9)
[2023-07-16] MEDS: Cephalexin 500 MG Capsule PO (00:15)
[2023-07-16 01:00] VITALS: BP 160/79; PULSE 71; RESP 18; TEMP 36.7; O2SAT 91
[2023-07-16 01:33] VITALS: BP 161/50; PULSE 70; RESP 15; TEMP 36.6; O2SAT 99
[2023-07-16 03:23] LABS: Reflex Lactate? Y
== END 2023-07-16 01:40 | disposition home or self-care (01) ==
PROVIDERS: Emergency Provider Emergency Medicine; PCP Internal Medicine; Visit Provider Emergency Medicine
DX: E10.65 Type 1 diabetes mellitus with hyperglycemia (principal); L89.153 Pressure ulcer of sacral region, stage 3; Q05.7 Lumbar spina bifida without hydrocephalus; Z79.4 Long term (current) use of insulin; T83.511A Infection and inflammatory reaction due to indwelling urethral catheter, initial encounter; N39.0 Urinary tract infection, site not specified; Z86.14 Personal history of Methicillin resistant Staphylococcus aureus infection; Z79.899 Other long term (current) drug therapy; Y73.8 Miscellaneous gastroenterology and urology devices associated with adverse incidents, not elsewhere classified
CPT/HCPCS: 36415; 80048; 81001; 82009; 83605; 85025; 87070; 87077; 87086; 87088; 87186; 87205; 99283; 99285; A4216

== ENCOUNTER 2023-08-07 14:15 | Outpatient (RCR) | payer MEDICARE, MEDICAID, SELFPAY ==
[2023-07-10 00:52] VITALS: BP 147/68; PULSE 96; RESP 20; TEMP 36; BMI 30.5
[2023-07-11 11:34] VITALS: BP 155/72; PULSE 104; RESP 18; TEMP 36; BMI 30.5
--- NOTE | 2023-07-11 13:12 | PCM.WC.PN ---
History of Present Illness Date of Service: 07/11/23 Chief Complaint: Right foot bilster/wound History of Wound: Ms. Walker is a very pleasant 43-year-old with a history of spina bifida with history of recurrent decubitus ulcers, and paraplegia. She states 3 weeks ago she developed a blister on the back of her right heel which did fill with fluid but then did sink back down flush with skin. She did see her PCP 05/17/2023 who felt given localized redness and swelling in the lower extremity possible infection may be present and she should report to the ED. Patient did follow-up in the ED and underwent evaluation with mildly elevated CRP and ESR with negative radiographic signs for osteomyelitis. She is noted to have some chills and general well and feeling at this time however did also have a UTI with positive urine culture and had been taking Macrobid. Right heel wound demonstrated no signs of infection in the ED and thus she was instructed to follow-up with the wound care center for continued care. Patient currently denies N/V/F/chills. She denies further complaints. Subjective Subjective This is a 43-year-old female who is following to the wound care center today for follow-up of right heel ulceration. Patient states that she is continue to pad and protect the area following removal of the blister on the right heel. States she is doing very well and edema to lower extremity is improving. She also reports injection to left hand has also helped improved arthritis symptoms and she can now move the hand better. Denies constitutional symptoms. Denies further complaints. Objective Data Objective Data Vital Signs: Vital Signs Temp Pulse Resp BP 96.8 F L 104 H 18 155/72 H 07/11/23 11:34 07/11/23 11:34 07/11/23 11:34 07/11/23 11:34 Weight: 45.359 kg Body Mass Index (BMI) 30.5 Physical Exam Const alert, oriented x3 and no apparent distress General Appearance: cooperative HEENT normocephalic Eyes General Eye: normal appearance of both eyes Neck General: normal visual inspection Lymph Lymphatic: no lymphadenopathy noted and no lymphedema noted Resp normal respiratory effort Cardio regular rate and regular rhythm Extremity Extremity Narrative: Right lower extremity: Vascular: DP and PT pulses weakly palpable bilateral secondary to paraplegic status. CFT less than 4 seconds to digits bilateral. Temperature gradient is warm to cool bilateral. Hair growth is diminished to the digits. Neurological: Absent lower extremity sensation secondary to paraplegic status Musculoskeletal: Muscle strength 0/5 secondary to paraplegic status. Dermatologic: There is bilateral lower extremity edema right greater than left about the foot. Right posterior heel demonstrates superficial blister with roughened skin overlying previous healthy dermal layer. Post removal of blistered skin demonstrates healthy dermal layer. No signs of infection. The site did regress with new blister formation versus previous visit. Skin no rashes or lesions noted, skin turgor normal and no jaundice General Skin Exam: venous stasis Neuro Neuro Narrative: Assisted by wheelchair secondary to paraplegic status Debridement Note Debridement Note No debridement was completed: No debridement was completed today Post-Debridement Measurements and Additional Note: Post-Debridement Measurements/Treatment WC - Nurse 1 - General Ulcer Assessment Start: 07/11/23 11:34 Freq: Status: Active Protocol: [email or web address] Activity Type Activity Date Activity User E-sign Co-sign Detail Recorded Client Recorded Date Recorded By Document 07/11/23 11:34 KW Desktop 07/11/23 11:41 KW 07/11/23 11:34 - Today's Visit Information Type of service Follow-up Visit (Physician/MATTRESS FILLING MACHINE TENDER ) Arrival Mode Wheelchair Patient Identification Verified (Name & Yes ) Height and Weight Body Mass Index (BMI) 30.5 BMI Classification Obese Vital Signs Temperature (97.8 F-99.1 F) 96.8 F L Temperature Source Temporal Pulse Rate (60-100) 104 H Pulse Location Monitor Respiratory Rate (12-18) 18 Respiratory rate source Observation Blood Pressure (90/60-120/80) 155/72 H Blood Pressure Mean (mm Hg) 99 Source Monitor Position Semi-Fowlers Blood Pressure Location Left Arm History Since Last Visit- (Skip if this is Patient's initial visit) Have you changed medications since your No last visit? Any new allergies or adverse reactions No Had a fall/change in ADL's that may No increase risk of falls Signs or symptoms of abuse and/or No neglect since last visit Have you been in the hospital since your No last visit? Has dressing in place as prescribed Yes Has compression in place as prescribed Yes Has offloadiing in place as prescribed N/A Experienced any changes in pain level or No management Left Footwear Regular Shoe Right Footwear Regular Shoe Pain Scale: 0-10 Numeric Is Patient Pain Free? Yes WC - Nurse 1 - General Ulcer Measurement Start: 07/11/23 11:34 Freq: Status: Active Protocol: Activity Type Activity Date Activity User E-sign Co-sign Detail Recorded Client Recorded Date Recorded By Document 07/11/23 11:34 Desktop 07/11/23 11:41 07/11/23 11:34 Wound Center Nurse 1 #6 RT HEEL cluster -Current Size (cm) - Length 0.1 -Current Size (cm) - Width 0.1 -Current Size (cm) - Depth 0.1 -Total Square Cm 0.01 -Exudate Amt None Present -Granulation Amt Large (67-100%) -Granulation Quality [place] -Texture (Cassandra-wound Skin Appearance) Assessed -Moisture (Cassandra-wound Skin Appearance) Assessed,Dry/ Scaly -Color (Cassandra-wound Skin Appearance) Assessed -Temperature (Cassandra-wound Skin No Abnormality Appearance) (Pt Warm) -Tenderness on Palpation (Cassandra-wound No Skin Appearance) -Ulcer Cleansing Rinsed/ Irrigated with Saline -Foul Odor after Cleansing No -Anesthetic Used 5% Lidocaine Gel WC - Nurse 2 - General Ulcer CM Notes Start: 07/11/23 11:34 Freq: Status: Active Protocol: Activity Type Activity Date Activity User E-sign Co-sign Detail Recorded Client Recorded Date Recorded By Document 07/11/23 12:01 [facility] Desktop 07/11/23 12:06 [facility] 07/11/23 12:01 Wound Center Nurse 2 -Post Debridement (cm) - Length 0.1 -Post Debridement (cm) - Width 0.1 -Post Debridement (cm) - Depth 0.1 -Total Square (Post) (cm) 0.01 -Area of Debridement (cm) - Length 0.1 -Area of Debridement (cm) - Width 0.1 -Total Square (Area) (cm) 0.01 -Tunneling No -Undermining/Tunneling No -Circular Undermining No -Wound/Ulcer Outcome Not Healed -Bleeding Controlled with NA Pain Scale: 0-10 Numeric Is Patient Pain Free? Yes WC - Nurse 3 - General Ulcer D/C NN Start: 07/11/23 11:34 Freq: Status: Active Protocol: Activity Type Activity Date Activity User E-sign Co-sign Detail Recorded Client Recorded Date Recorded By Document 07/11/23 12:14 [facility] Desktop 07/11/23 12:15 [facility] 07/11/23 12:14 Wound Care Center Nurse 3 #6 RT HEEL cluster -Primary Dressing Applied Mepilex Border -Primary Dressing Covered/Secured with Dry Gauze -Mepilex Border 1 Right -Tubular Bandage Single Layer -Size of Tubigrip Used Size D -Size D ($) 2 -Other SENT EXTRA Treatment Response Procedure Tolerated Well Pain Scale: 0-10 Numeric Is Patient Pain Free? Yes WC - Visit Discharge Discharge Condition Stable Ambulatory Status Wheelchair Transportation Private Auto Accompanied by CAREGIVER Assessment/Plan Assessment/Plan (1) Non-pressure chronic ulcer of other part of right foot limited to breakdown of skin: CODE(S): L97.511 - Non-pressure chronic ulcer of other part of right foot limited to breakdown of skin (2) Blister of foot: CODE(S): S90.829A - Blister (nonthermal), unspecified foot, initial encounter (3) Type 1 diabetes mellitus: CODE(S): E10.9 - Type 1 diabetes mellitus without complications QUALIFIERS: Diabetes mellitus complication status: with hyperglycemia Qualified Code(s): E10.65 - Type 1 diabetes mellitus with hyperglycemia (4) Venous insufficiency (chronic) (peripheral): CODE(S): I87.2 - Venous insufficiency (chronic) (peripheral) (5) Paraplegia: CODE(S): G82.20 - Paraplegia, unspecified (6) Localized edema: CODE(S): R60.0 - Localized edema (7) Spina bifida: CODE(S): Q05.9 - Spina bifida, unspecified (8) Anxiety and depression: CODE(S): F41.9 - Anxiety disorder, unspecified; F32.A - Depression, unspecified PLAN: Plan Patient seen and evaluated Ulceration demonstrates new blister cluster over the right heel. Ulceration measures 0.1 cm x 0.1 cm x 0.1 cm. No signs of infection. Foam border dressing applied to pad and protect area. Discussed continued protection over next few weeks. Tubigrip compression applied to right lower extremity. She demonstrates improvement in the site with epithelialization across previous blistered site. Discussed daily dressing changes with patient today. Discussed proper offloading to ensure the heel floats while at rest via pillow bump. Discussed proper fitting shoe gear today. Encouraged shoes to be worn at all times due to inability to feel. Discussed importance of proper fitting to decrease sites of pressure or rubbing. Discussed with her that while her ulcerative site has healed we will still follow to ensure no new blister formation occurs over next few weeks. Discussed use of compression stockings to aid in edema control. Edema is much improved to lower extremity vs previous visit. Discussed referral to dermatology for possible starting of biologic to decrease bulla formation/development. She states she was previously going to see dermatology but got appointments confused and did miss the appointment. She has rescheduled for evaluation with dermatology and has upcoming appointment. Discussed signs and symptoms of infection. Discussed if she notices redness increasing around the wound site or spreading up the leg, purulent drainage from the wound site, increasing foul odor from the wound, or if she experiences fever greater than 101 degree accompanied by nausea, vomiting, chills these are signs of progressing infection and she should report to the ED to receive IV antibiotics and further evaluation. The following work up and care recommendations were made: Dressing: Triple antibiotic ointment, dry sterile dressing, Tubigrip compression Wash: Soap and water Tissue growth optimization: None Offload: Float heel with pillow pump at night to ensure no pressure to the back of the heel. Vascular: Weakly palpable DP and PT pulses secondary to paraplegic status however this is not affecting healing at this time. Edema: There is mild edema secondary to a paraplegic status. Recommended continued use of Tubigrip compression with eventual transition to compression stocking. Infection: No signs of infection Pain: May take [id number] Tylenol for any discomfort Host factors: DM type I, spina bifida, paraplegic status I answered all the patient's questions. To return to the wound healing center in 2 weeks or call sooner if the patient has any questions or concerns.
[2023-08-01 10:58] VITALS: BP 117/58; PULSE 105; RESP 18; TEMP 36.3; BMI 30.5
--- NOTE | 2023-08-01 12:00 | HP.PCM_ITS ---
History of Present Illness Date of Service: 08/01/23 Chief Complaint: Right foot bilster/wound History of Wound: Ms. Walker is a 43 yo who has a history of spinal bifida, recurrent decubitus ulcers status post surgeries who presents due to a newly noted right buttock area ulcer. Said to have been noted by her caregivers a few weeks ago. At that time, was also noted to have significantly elevated blood glucose readings prompting her presentation to the emergency room. Workup at that visit was not suggestive of Sepsis so she was started on Keflex and discharged however due to her concern for possible infection, she presented to [facility] following which she was admitted. She believes that she had imaging done but does not know if she was told that she had osteomyelitis. We do not have those records at this time. Since discharge, has had dressing changes done by her caregivers/ visiting nurse. They report a lot of drainage. No foul smell or significant concerns for infection reported. She feels well otherwise. No chills, fever, nausea or vomiting. Currently has a suprapubic catheter and diverting colostomy. [facility] Medical History (Updated 08/01/23 @ 12:[address] Cosmo Smith MD) Swelling of right foot Arthritis Uses wheelchair Ochoa catheter in place Back pain Blackout Non-smoker Diabetes Methicillin resistant Staphylococcus epidermidis infection Pseudomonas aeruginosa infection History of MRSA infection Pressure ulcer of sacral region, stage 4 Acute postoperative anemia due to expected blood loss Diabetes mellitus treated with insulin Anemia of chronic disease Urinary incontinence Skin necrosis Pressure ulcer of sacral region, unstageable Right ischial pressure sore, stage 4 Osteomyelitis of right side of pelvis Decubitus ulcer Medulloblastoma Anemia Leukocytosis Anxiety and depression Vertigo Decubitus ulcer of coccyx, stage 2 Health care maintenance Difficulty transferring Type 1 diabetes mellitus Decubitus ulcer of right buttock, stage 3 Insulin dependent diabetes mellitus Buttock wound High cholesterol Cancer Spina bifida of lumbar spine Home Medications ?Medication ?Instructions ?Recorded ?Last Taken ?Type blood sugar diagnostic (OneTouch #120 ea 05/31/22 Unknown Rx Verio test strips) blood-glucose transmitter (Dexcom #1 ea 10/10/22 Unknown Rx G6 Transmitter device) pen needle, diabetic 32 gauge x #400 ea 01/07/23 Unknown Rx /32 (BD Ultra-Fine Charla Pen Needle) insulin syringe-needle U-100 0.3 #100 ea 01/15/23 Unknown Rx mL 31 gauge x 5/16 (BD Insulin Syringe Ultra-Fine) ferrous sulfate 325 mg (65 mg 325 mg PO DAILY #90 tabs 03/12/23 03/20/23 Rx iron) tablet oxybutynin chloride 10 mg 10 mg PO DAILY 03/20/23 03/20/23 History tablet,extended release 24 hr insulin glargine 100 unit/mL 15 unit (0.15 mL) subcut QAM #10 mL 05/22/23 Unknown Rx subcutaneous solution insulin aspart U-100 100 unit/mL 8 unit (0.08 mL) subcut TID #15 mL 05/28/23 Unknown Rx (3 mL) subcutaneous pen escitalopram oxalate 5 mg tablet 5 mg PO DAILY #30 tabs 07/01/23 Unknown Rx (Lexapro) cephalexin 500 mg capsule 500 mg PO Q6 #40 CAPSULES 07/16/23 Unknown Rx Allergy/AdvReac Type Severity Reaction Status Date / Time trospium Allergy Intermediate Hives Verified 07/10/23 14:50 Latex, Natural Rubber Allergy Hives Verified 07/10/23 14:50 Family History Other Cancer Diabetes FH: defects Surgical History History of creation of ostomy Hx of surgical procedure Status post repair of complex wound History of release of tendon History of brain surgery Social History current occupational status: disabled Smoking Status: Never smoker alcohol intake: current alcohol intake frequency: holidays/special occasions only Alcohol type: wine substance use type: does not use do you feel safe at home: Yes additional social history: In wheel chair ROS Constitutional Constitutional: Denies fatigue, fever(s), frequent falls, headache(s), increased appetite, lethargy or malaise Eyes Eyes: Denies change in eye color, change in vision, discharge from eye(s), dry eyes, excessive blinking or exophthalmos ENT HEENT: Denies hoarseness, lip swelling, loss taste/smell, mouth pain, nasal obstruction or nasal trauma Cardiovascular Cardiovascular: Denies diaphoresis, dizziness, dyspnea, dyspnea at rest, dyspnea on exertion or erythema on extremities Respiratory/Chest Respiratory/Chest: Denies difficulty clearing secretions, dyspnea on exertion, excessive phlegm production, hemoptysis, hoarseness, inability to speak or mouth breathing Gastrointestinal Gastrointestinal: Denies chewing difficulty, cramping, dry heaves, dyspepsia, early satiety, excessive flatus or rectal bleeding Genitourinary Genitourinary: Denies flank pain, genital bruising, hematuria, itching, low back pain or oliguria Musculoskeletal Musculoskeletal: Denies extremity pain, joint swelling, neck pain, tingling or tremors Integumentary Integumentary: Reports skin ulcer; Denies photosensitivity, pruritus, rash, skin pain or skin swelling Neurologic Neurologic: Denies burning sensations, confusion, convulsions, disequilibrium, dizziness, frequent falls or headache(s) Psychiatric Psychiatric: Denies hallucinations, homicidal ideation, hopelessness, irritability, memory loss, suicidal thoughts, tactile hallucinations or visual hallucinations Endocrine Endocrinology: Denies excessive sweating, fatigue, flushing, heat intolerance, increase in ring/shoe/hat size, palpitations, polydipsia or polyphagia Allergic/Immunologic Allergic/Immunologic: Denies itchy eyes, lip swelling, seasonal rhinorrhea, throat swelling, eczemia or wheezing Vital Signs Vital Signs Vital Signs: 08/01/23 10:58 Temperature 97.3 F L Temperature Source Temporal Pulse Rate 105 H Respiratory Rate 18 Blood Pressure 117/58 L Blood Pressure Mean 77 Blood Pressure Source Monitor Blood Pressure Position Sitting Blood Pressure Location Left Arm Oxygen Delivery Method Room Air Weight Weight: 100 lb Body Mass Index (BMI) 30.5 Physical Exam Const alert, oriented x3 and no apparent distress General Appearance: cooperative and well kempt HEENT normocephalic, head/scalp atraumatic and hearing grossly normal bilaterally Eyes General Eye: normal appearance of both eyes Neck full ROM and supple General: normal visual inspection Resp normal respiratory effort Effort and Inspection: able to speak in complete sentences Skin Wounds: wounds noted bed with slough and pink, no odor and open Neuro oriented x3 and CN's II-XII intact bilaterally Psych mental status grossly normal, thought process normal, cooperative and affect normal Appearance: grossly normal Debridement Note Debridement Note Wound debrided: Right Buttock ( Fold ) Wound Grade/Stage: Stage III Type of Debridement: Excisional debridement Anesthesia Used: 4% Lidocaine Solution Depth: Down to and including healthy tissue and in the subcutaneous layer Percentage of wound debrided: 100 Instrument Used: 5mm curette Tissue Removed: Slough and devitalized tissue Severity: Fat Layer Exposed Amount of bleeding with debridement: Mild Bleeding Controlled with: Pressure Patient tolerated procedure: Patient tolerated procedure well Post-Debridement Measurements and Additional Note: Post-Debridement Measurements/Treatment - Nurse 1 - General Ulcer Assessment Start: 07/11/23 11:34 Freq: Status: Active Protocol: KRISTIN Activity Type Activity Date Activity User E-sign Co-sign Detail Recorded Client Recorded Date Recorded By Document 07/11/23 11:34 KW Desktop 07/11/23 11:41 KW Document 08/01/23 10:58 KW wound center 08/01/23 11:09 KW 07/11/23 08/01/23 11:34 10:58 - Today's Visit Information Type of service Follow-up Visit Initial Visit, (Physician/MANAGER PATIENT Follow-up Visit ) (Physician/MANAGER PATIENT ) Arrival Mode Wheelchair Wheelchair Accompanied by CAREGIVER Patient Identification Verified (Name & Yes Yes ) Height and Weight Body Mass Index (BMI) 30.5 30.5 BMI Classification Obese Obese Vital Signs Temperature (97.8 F-99.1 F) 96.8 F L 97.3 F L Temperature Source Temporal Temporal Pulse Rate (60-100) 104 H 105 H Pulse Location Monitor Monitor Respiratory Rate (12-18) 18 18 Respiratory rate source Observation Observation Oxygen Delivery Method Room Air Blood Pressure (90/60-120/80) 155/72 H 117/58 L Blood Pressure Mean 99 77 Source Monitor Monitor Position Semi-Fowlers Sitting Blood Pressure Location Left Arm Left Arm History Since Last Visit- (Skip if this is Patient's initial visit) Have you changed medications since your No No last visit? Any new allergies or adverse reactions No No Had a fall/change in ADL's that may No No increase risk of falls Signs or symptoms of abuse and/or No No neglect since last visit Have you been in the hospital since your No No last visit? Has dressing in place as prescribed Yes Yes Has compression in place as prescribed Yes N/A Has offloadiing in place as prescribed N/A N/A Experienced any changes in pain level or No No management Left Footwear Regular Shoe Regular Shoe Right Footwear Regular Shoe Regular Shoe Pain Scale: 0-10 Numeric Is Patient Pain Free? Yes Yes WC - Nurse 1 - General Ulcer Measurement Start: 07/11/23 11:34 Freq: Status: Active Protocol: Activity Type Activity Date Activity User E-sign Co-sign Detail Recorded Client Recorded Date Recorded By Document 07/11/23 11:34 KW Desktop 07/11/23 11:41 KW Document 08/01/23 10:58 KW wound center 08/01/23 11:09 KW 07/11/23 08/01/23 11:34 10:58 Wound Center Nurse 1 #7 RT ISCHIUM -Current Size (cm) - Length 3.3 -Current Size (cm) - Width 2.6 -Current Size (cm) - Depth 1.3 -Total Square Cm 8.58 -Date of Last Picture (Recall this 08/01/23 field) -Tunneling Yes -Tunneling Position (O'clock) 1 -Tunneling Distance (cm) 6 -Exudate Amt Large -Exudate Type Serosanguineous -Wound Margin Distinct, Outline Attached -Granulation Amt Large (67-100%) -Granulation Quality [place],Red -Necrosis Amt Small (1-33%) -Necrotic Tissue Type Adherent Slough -Texture (Cassandra-wound Skin Appearance) Assessed -Moisture (Cassandra-wound Skin Appearance) Assessed, Maceration -Color (Cassandra-wound Skin Appearance) Assessed -Temperature (Cassandra-wound Skin No Abnormality Appearance) (Pt Warm) -Tenderness on Palpation (Cassandra-wound No Skin Appearance) -Ulcer Cleansing Rinsed/ Irrigated with Saline -Foul Odor after Cleansing No -Anesthetic Used 5% Lidocaine Gel #6 RT HEEL cluster -Current Size (cm) - Length 0.1 -Current Size (cm) - Width 0.1 -Current Size (cm) - Depth 0.1 -Total Square Cm 0.01 -Exudate Amt None Present -Granulation Amt Large (67-100%) -Granulation Quality [place] -Texture (Cassandra-wound Skin Appearance) Assessed -Moisture (Cassandra-wound Skin Appearance) Assessed,Dry/ Scaly -Color (Cassandra-wound Skin Appearance) Assessed -Temperature (Cassandra-wound Skin No Abnormality Appearance) (Pt Warm) -Tenderness on Palpation (Cassandra-wound No Skin Appearance) -Ulcer Cleansing Rinsed/ Irrigated with Saline -Foul Odor after Cleansing No -Anesthetic Used 5% Lidocaine Gel VIJAYA - Nurse 2 - General Ulcer CM Notes Start: 07/11/23 11:34 Freq: Status: Active Protocol: Activity Type Activity Date Activity User E-sign Co-sign Detail Recorded Client Recorded Date Recorded By Document 07/11/23 12:01 BMF Desktop 07/11/23 12:06 BMF Document 08/01/23 11:21 wound center 08/01/23 11:24 07/11/23 08/01/23 12:01 11:21 Wound Center Nurse 2 #7 RT ISCHIUM -Time 11:21 -Correct Patient Yes -Correct Side, Site, Position Yes -Correct Procedure Yes -Procedure Performed Yes -Type of Procedure Debridement -Clinical Debridement Subcutaneous -Tissue Removed Subcutaneous -Post Debridement (cm) - Length 4.0 -Post Debridement (cm) - Width 2.5 -Post Debridement (cm) - Depth 3.0 -Total Square (Post) (cm) 10.00 -Area of Debridement (cm) - Length 4.0 -Area of Debridement (cm) - Width 2.5 -Total Square (Area) (cm) 10.00 -Tunneling No -Undermining/Tunneling No -Wound/Ulcer Outcome Not Healed -Ulcer Cleansing Rinsed/ Irrigated with Saline -Foul Odor after Cleansing No -Bioengineered Tissue No -Bleeding Controlled with Pressure -Treatment Response Procedure Tolerated Well -Debridement - Subq, 1st 20sq cm Yes #6 RT HEEL cluster -Post Debridement (cm) - Length 0.1 -Post Debridement (cm) - Width 0.1 -Post Debridement (cm) - Depth 0.1 -Total Square (Post) (cm) 0.01 -Area of Debridement (cm) - Length 0.1 -Area of Debridement (cm) - Width 0.1 -Total Square (Area) (cm) 0.01 -Tunneling No -Undermining/Tunneling No -Circular Undermining No -Wound/Ulcer Outcome Not Healed -Bleeding Controlled with NA Pain Scale: 0-10 Numeric Is Patient Pain Free? Yes Yes WC - Nurse 3 - General Ulcer D/C NN Start: 07/11/23 11:34 Freq: Status: Active Protocol: Activity Type Activity Date Activity User E-sign Co-sign Detail Recorded Client Recorded Date Recorded By Document 07/11/23 12:14 BMF Desktop 05/02/24 12:15 BMF Document 08/01/23 11:49 KW wound center 08/01/23 11:50 KW 07/11/23 08/01/23 12:14 11:49 Wound Care Center Nurse 3 #7 RT ISCHIUM -Primary Dressing Applied Aquacel Extra, Mepilex Border -Aquacel Extra 1 -Mepilex Border 1 #6 RT HEEL cluster -Primary Dressing Applied Mepilex Border -Primary Dressing Covered/Secured with Dry Gauze -Mepilex Border 1 Right -Tubular Bandage Single Layer -Size of Tubigrip Used Size D -Size D ($) 2 -Other SENT EXTRA Treatment Response Procedure Tolerated Well Pain Scale: 0-10 Numeric Is Patient Pain Free? Yes Yes WC - Visit Discharge Discharge Condition Stable Stable Ambulatory Status Wheelchair Wheelchair Transportation Private Auto Accompanied by CAREGIVER Medication Reconcilliation completed & No provided to patient/care provider Clinical Summary of Care Provided Yes Charges/Coding Visit Charges Office Visits / Consults: 09884 OV L4 Est 30min Procedures Integumentary [id number]: [id number] Annie subq tissue 20 sq cm/< Assessment/Plan Assessment/Plan (1) Decubitus ulcer of right buttock, stage 3: CODE(S): L89.313 - Pressure ulcer of right buttock, stage 3 (2) Spina bifida of lumbar spine: CODE(S): Q05.7 - Lumbar spina bifida without hydrocephalus (3) Osteomyelitis of right side of pelvis: CODE(S): M86.9 - Osteomyelitis, unspecified (4) Paraplegia: CODE(S): G82.20 - Paraplegia, unspecified (5) Uses wheelchair: CODE(S): Z99.3 - Dependence on wheelchair PLAN: Plan Debridement done as documented above, procedure was well-tolerated. As above, history of recurrent decubitus ulcer. Also history of osteomyelitis of the pelvis. She is status post diverting colostomy and suprapubic catheter which remain in place. Current ulceration over previous scar. Said to have been noted about 3 weeks ago, history of neuropathy/paraplegia. History of diabetes mellitus, insulin-dependent. Follows up with endocrinology and last documented A1c was at 7.7. Will request records from [facility]. No imaging ordered today due to recent imaging at [facility]. Several factors leading to recurrence including debility, paraplegia and possible chronic osteomyelitis. If the presence of chronic osteomyelitis is established, she will benefit from HBO. Records have been requested. Due to depth and significant drainage, she would benefit from a wound VAC however in the meantime, will start on Aquacel extra at least twice daily. Cover with foam dressing. Glucerna twice daily, optimal diabetes control. Continue follow-up with endocrinology. Offloading also very strongly recommended. When wound VAC is present, will start at 125 mmHg and change every 48 hours. Due to prior episodes of wound breakdown and surgical intervention despite wound care, she was advised that I would recommend she follow-up with her most recent plastic surgeon at the [facility], she voiced understanding. Follow-up here in a week or sooner if needed. Her questions were answered and she was advised to let us know if she has any further questions or concerns.
[2023-08-07 14:31] VITALS: BP 145/67; PULSE 94; RESP 18; TEMP 36.1; BMI 30.5
--- NOTE | 2023-08-07 14:55 | PN.PCM_ITS ---
History of Present Illness Date of Service: 08/07/23 Chief Complaint: Right foot bilster/wound History of Wound: Ms. Walker is a 43 yo who has a history of spinal bifida, recurrent decubitus ulcers status post surgeries who presents due to a newly noted right buttock area ulcer. Said to have been noted by her caregivers a few weeks ago. At that time, was also noted to have significantly elevated blood glucose readings prompting her presentation to the emergency room. Workup at that visit was not suggestive of Sepsis so she was started on Keflex and discharged however due to her concern for possible infection, she presented to [facility] following which she was admitted. She believes that she had imaging done but does not know if she was told that she had osteomyelitis. We do not have those records at this time. Since discharge, has had dressing changes done by her caregivers/ visiting nurse. They report a lot of drainage. No foul smell or significant concerns for infection reported. She feels well otherwise. No chills, fever, nausea or vomiting. Currently has a suprapubic catheter and diverting colostomy. Progress of Wound: Courtesy visit due to patient unable to come in on this week. Right buttocks pressure ulcer is on the edge of her flap near cassandra anal area. This ulcer is into the muscle with bone palpable and there is significant tunneling at 2 o'clock. The tissue is beefy pink and the cassandra wound is clear. Her insu carmen has not approved the wound VAC. Objective Data Objective Data Vital Signs: Vital Signs Temp Pulse Resp BP O2 Del Method 97 F L 94 18 145/67 H Room Air 08/07/23 14:31 08/07/23 14:31 08/07/23 14:31 08/07/23 14:08/01/23 10:58 Oxygen Delivery Method Room Air Weight: 100 lb Body Mass Index (BMI) 30.5 Charges/Coding Procedures Integumentary 111xxx-113xx: 05930 Annie musc/fascia 20 sq cm/< Debridement Note Debridement Note Wound debrided: Right Buttock ( Fold ) Laterality: Right Wound Grade/Stage: Stage IV Type of Debridement: Excisional debridement Anesthesia Used: 4% Lidocaine Solution Depth: Down to and including healthy tissue and in the subcutaneous layer Percentage of wound debrided: 100 Instrument Used: 7mm curette Tissue Removed: Non viable tissue & slough into the muscle. Bone palpable but not debrided Severity: Fat Layer Exposed Amount of bleeding with debridement: Mild Bleeding Controlled with: Compression and gauze Patient tolerated procedure: Patient tolerated procedure well Post-Debridement Measurements and Additional Note: Post-Debridement Measurements/Treatment - Nurse 1 - General Ulcer Assessment Start: 07/11/23 11:34 Freq: Status: Active Protocol: [email or web address] Activity Type Activity Date Activity User E-sign Co-sign Detail Recorded Client Recorded Date Recorded By Document 07/11/23 11:34 KW Desktop 07/11/23 11:41 KW Document 08/01/23 10:58 KW wound center 08/01/23 11:09 KW Document 08/07/23 14:31 RB wound cnter 08/07/23 14:33 RB 07/11/23 08/01/23 08/07/23 11:34 10:58 14:31 - Today's Visit Information Type of service Follow-up Visit Initial Visit, Follow-up Visit (Physician/CORPORATE COMPLIANCE OFFICER Follow-up Visit (Physician/CORPORATE COMPLIANCE OFFICER ) (Physician/CORPORATE COMPLIANCE OFFICER ) ) Arrival Mode Wheelchair Wheelchair Wheelchair Transfer Assistance Manual Accompanied by CAREGIVER Patient Identification Verified (Name & Yes Yes Yes ) Patient Requires Transmission-Based No Precautions Height and Weight Body Mass Index (BMI) 30.5 30.5 30.5 BMI Classification Obese Obese Obese Vital Signs Temperature (97.8 F-99.1 F) 96.8 F L 97.3 F L 97 F L Temperature Source Temporal Temporal Temporal Pulse Rate (60-100) 104 H 105 H 94 Pulse Location Monitor Monitor Monitor Respiratory Rate (12-18) 18 18 18 Respiratory rate source Observation Observation Observation Oxygen Delivery Method Room Air Blood Pressure (90/60-120/80) 155/72 H 117/58 L 145/67 H Blood Pressure Mean (mm Hg) 99 77 93 Source Monitor Monitor Monitor Position Semi-Fowlers Sitting Semi-Fowlers Blood Pressure Location Left Arm Left Arm Left Arm History Since Last Visit- (Skip if this is Patient's initial visit) Have you changed medications since your No No No last visit? Any new allergies or adverse reactions No No No Had a fall/change in ADL's that may No No No increase risk of falls Signs or symptoms of abuse and/or No No No neglect since last visit Have you been in the hospital since your No No No last visit? Has dressing in place as prescribed Yes Yes Yes Has compression in place as prescribed Yes N/A No Has offloadiing in place as prescribed N/A N/A No Experienced any changes in pain level or No No No management Left Footwear Regular Shoe Regular Shoe Right Footwear Regular Shoe Regular Shoe Pain Scale: 0-10 Numeric Is Patient Pain Free? Yes Yes Yes WC - Nurse 1 - General Ulcer Measurement Start: 07/11/23 11:34 Freq: Status: Active Protocol: Activity Type Activity Date Activity User E-sign Co-sign Detail Recorded Client Recorded Date Recorded By Document 07/11/23 11:34 KW Desktop 07/11/23 11:41 KW Document 08/01/23 10:58 KW wound center 08/01/23 11:09 KW Document 08/07/23 14:31 RB wound cnter 08/07/23 14:33 RB 07/11/23 08/01/23 08/07/23 11:34 10:58 14:31 Wound Center Nurse 1 #6 RT HEEL cluster -Current Size (cm) - Length 0.1 -Current Size (cm) - Width 0.1 -Current Size (cm) - Depth 0.1 -Total Square Cm 0.01 -Exudate Amt None Present -Granulation Amt Large (67-100%) -Granulation Quality [place] -Texture (Cassandra-wound Skin Appearance) Assessed -Moisture (Cassandra-wound Skin Appearance) Assessed,Dry/ Scaly -Color (Cassandra-wound Skin Appearance) Assessed -Temperature (Cassandra-wound Skin No Abnormality Appearance) (Pt Warm) -Tenderness on Palpation (Cassandra-wound No Skin Appearance) -Ulcer Cleansing Rinsed/ Irrigated with Saline -Foul Odor after Cleansing No -Anesthetic Used 5% Lidocaine Gel #7 RT ISCHIUM -Combined with other wound No -Current Size (cm) - Length 3.3 2 -Current Size (cm) - Width 2.6 1.7 -Current Size (cm) - Depth 1.3 2.7 -Total Square Cm 8.58 3.4 -Date of Last Picture (Recall this 08/01/23 field) -Tunneling Yes No -Tunneling Position (O'clock) 1 -Tunneling Distance (cm) 6 -Undermining/Tunneling No -Circular Undermining No -Exudate Amt Large Large -Exudate Type Serosanguineous Serosanguineous -Wound Margin Distinct, Thickened & Outline Rolled Under Attached -Granulation Amt Large (67-100%) Medium (34-66%) -Granulation Quality [place],Red [place] -Slough/Fibrin Yes -Necrosis Amt Small (1-33%) Medium (34-66%) -Necrotic Tissue Type Adherent Slough Adherent Slough -Structure Exposed N/A -Texture (Cassandra-wound Skin Appearance) Assessed Assessed, Scarring -Moisture (Cassandra-wound Skin Appearance) Assessed, Assessed Maceration -Color (Cassandra-wound Skin Appearance) Assessed Assessed -Temperature (Cassandra-wound Skin No Abnormality No Abnormality Appearance) (Pt Warm) (Pt Warm) -Tenderness on Palpation (Cassandra-wound No No Skin Appearance) -Ulcer Cleansing Rinsed/ Wound Cleanser Irrigated with Saline -Foul Odor after Cleansing No No -Anesthetic Used 5% Lidocaine 5% Lidocaine Gel Gel WC - Nurse 2 - General Ulcer CM Notes Start: 07/11/23 11:34 Freq: Status: Active Protocol: Activity Type Activity Date Activity User E-sign Co-sign Detail Recorded Client Recorded Date Recorded By Document 07/11/23 12:01 [facility] Desktop 07/11/23 12:06 [facility] Document 08/01/23 11:21 wound center 08/01/23 11:24 Document 08/07/23 14:41 [facility] 08/07/23 14:50 07/11/23 08/01/23 08/07/23 12:01 11:21 14:41 Wound Center Nurse 2 #6 RT HEEL cluster -Post Debridement (cm) - Length 0.1 -Post Debridement (cm) - Width 0.1 -Post Debridement (cm) - Depth 0.1 -Total Square (Post) (cm) 0.01 -Area of Debridement (cm) - Length 0.1 -Area of Debridement (cm) - Width 0.1 -Total Square (Area) (cm) 0.01 -Tunneling No -Undermining/Tunneling No -Circular Undermining No -Wound/Ulcer Outcome Not Healed -Bleeding Controlled with NA #7 RT ISCHIUM -Time 11:21 14:48 -Correct Patient Yes Yes -Correct Side, Site, Position Yes Yes -Correct Procedure Yes Yes -Procedure Performed Yes Yes -Type of Procedure Debridement Debridement -Clinical Debridement Subcutaneous Muscle / Fascia -Tissue Removed Subcutaneous Muscle -Post Debridement (cm) - Length 4.0 2.0 -Post Debridement (cm) - Width 2.5 2.0 -Post Debridement (cm) - Depth 3.0 3.5 -Total Square (Post) (cm) 10.00 4.00 -Area of Debridement (cm) - Length 4.0 2.0 -Area of Debridement (cm) - Width 2.5 2.0 -Total Square (Area) (cm) 10.00 4.00 -Tunneling No Yes -Tunneling Position (O'clock) 2 -Tunneling Distance (cm) 5.5 -Undermining/Tunneling No No -Circular Undermining No -Wound/Ulcer Outcome Not Healed Not Healed -Ulcer Cleansing Rinsed/ Rinsed/ Irrigated with Irrigated with Saline Saline -Foul Odor after Cleansing No No -Bioengineered Tissue No No -Bleeding Controlled with Pressure Pressure -Treatment Response Procedure Procedure Tolerated Well Tolerated Well -Debridement - Subq, 1st 20sq cm Yes -Debridement - Muscle / Fascia, 1st Yes 20sq cm Pain Scale: 0-10 Numeric Is Patient Pain Free? Yes Yes Yes - Nurse 3 - General Ulcer D/C NN Start: 07/11/23 11:34 Freq: Status: Active Protocol: Activity Type Activity Date Activity User E-sign Co-sign Detail Recorded Client Recorded Date Recorded By Document 07/11/23 12:14 [facility] Desktop 07/11/23 12:15 [facility] Document 08/01/23 11:49 KW wound center 08/01/23 11:50 KW 07/11/23 08/01/23 12:14 11:49 Wound Care Center Nurse 3 #6 RT HEEL cluster -Primary Dressing Applied Mepilex Border -Primary Dressing Covered/Secured with Dry Gauze -Mepilex Border 1 #7 RT ISCHIUM -Primary Dressing Applied Aquacel Extra, Mepilex Border -Aquacel Extra 1 -Mepilex Border 1 Right -Tubular Bandage Single Layer -Size of Tubigrip Used Size D -Size D ($) 2 -Other SENT EXTRA Treatment Response Procedure Tolerated Well Pain Scale: 0-10 Numeric Is Patient Pain Free? Yes Yes - Visit Discharge Discharge Condition Stable Stable Ambulatory Status Wheelchair Wheelchair Transportation Private Auto Accompanied by CAREGIVER Medication Reconcilliation completed & No provided to patient/care provider Clinical Summary of Care Provided Yes Assessment/Plan Assessment/Plan (1) Decubitus ulcer of right buttock, stage 4: CODE(S): L89.314 - Pressure ulcer of right buttock, stage 4 (2) Spina bifida of lumbar spine: CODE(S): Q05.7 - Lumbar spina bifida without hydrocephalus (3) Osteomyelitis of right side of pelvis: CODE(S): M86.9 - Osteomyelitis, unspecified (4) Paraplegia: CODE(S): G82.20 - Paraplegia, unspecified (5) Uses wheelchair: CODE(S): Z99.3 - Dependence on wheelchair PLAN: Plan Patient evaluated at the wound healing center today. She has a Stage IV decubitus ulcer on right buttock on the edge of her previous flap. This ulcer is beefy pink and into the muscle with bone palpable but covered with tissue. A wound VAC was ordered last week but has yet to be approved by insurance. Will reorder the wound VAC. Wound Care - Will place Dakin's 0.25% moistened gauze or Kerlix into the base of the ulcer daily and PRN until the wound VAC is approved. Once the wound VAC is approved it will be at 150 mmHG and be changed 3 times per week. She has help at home through [facility] home health. Encouraged increase protein intake to help with wound healing. She uses Glucerna twice daily. Ideally have control of blood glucose levels to help with healing. Stressed importance of off loading as much as possible. She sleeps in a regular bed. She would benefit from a low airloss mattress. She is unsure how old her cushion for her wheelchair is . Follow up one week with Dr. Smith.
== END 2023-08-09 23:59 | disposition home or self-care (01) ==
LOC: WC 14:15
PROVIDERS: PCP Internal Medicine; Referring Provider Internal Medicine; Visit Provider Student in an Organized Health Care Education/Training Program
DX: I87.2 Venous insufficiency (chronic) (peripheral) (principal); L89.314 Pressure ulcer of right buttock, stage 4; L89.313 Pressure ulcer of right buttock, stage 3; G82.20 Paraplegia, unspecified; Z93.3 Colostomy status; Z93.50 Unspecified cystostomy status; M86.9 Osteomyelitis, unspecified; Q05.7 Lumbar spina bifida without hydrocephalus; E10.9 Type 1 diabetes mellitus without complications; Z79.4 Long term (current) use of insulin; R53.81 Other malaise; E78.00 Pure hypercholesterolemia, unspecified; D63.8 Anemia in other chronic diseases classified elsewhere; Z99.3 Dependence on wheelchair; R60.0 Localized edema
CPT/HCPCS: 11042; 11043; 99213; G0463

== ENCOUNTER 2023-08-15 11:53 | Outpatient (RCR) | payer MEDICARE, MEDICAID, SELFPAY ==
[2023-08-10 02:26] VITALS: BP 147/68; PULSE 96; RESP 20; TEMP 36; BMI 30.5
[2023-08-15 11:34] VITALS: BP 131/70; PULSE 87; RESP 16; TEMP 36.2; BMI 30.5
--- NOTE | 2023-08-15 12:13 | PN.PCM_ITS ---
History of Present Illness Date of Service: 08/15/23 Chief Complaint: Right foot bilster/wound History of Wound: Ms. Walker is a 43 yo who has a history of spinal bifida, recurrent decubitus ulcers status post surgeries who presents due to a newly noted right buttock area ulcer. Said to have been noted by her caregivers a few weeks ago. At that time, was also noted to have significantly elevated blood glucose readings prompting her presentation to the emergency room. Workup at that visit was not suggestive of Sepsis so she was started on Keflex and discharged however due to her concern for possible infection, she presented to [facility] following which she was admitted. She believes that she had imaging done but does not know if she was told that she had osteomyelitis. We do not have those records at this time. Since discharge, has had dressing changes done by her caregivers/ visiting nurse. They report a lot of drainage. No foul smell or significant concerns for infection reported. She feels well otherwise. No chills, fever, nausea or vomiting. Currently has a suprapubic catheter and diverting colostomy. Progress of Wound: No new concerns at this time. She states that she only just received her wound Vac few days ago. Was applied for just 24 hours but came off in the middle of the night. Surrounding area of maceration. Objective Data Objective Data Vital Signs: Vital Signs Temp Pulse Resp BP O2 Del Method 97.2 F L 87 16 131/70 H Room Air 08/15/23 11:34 08/15/23 11:34 08/15/23 11:34 08/15/23 11:34 08/15/23 11:34 Oxygen Delivery Method Room Air Weight: 100 lb Body Mass Index (BMI) 30.5 Charges/Coding Procedures Integumentary 111xxx-113xx: 39487 Annie subq tissue 20 sq cm/< Physical Exam Const alert, oriented x3 and no apparent distress General Appearance: cooperative and well kempt HEENT normocephalic, head/scalp atraumatic and hearing grossly normal bilaterally Eyes General Eye: normal appearance of both eyes Neck full ROM and supple General: normal visual inspection Resp normal respiratory effort Effort and Inspection: able to speak in complete sentences Skin Wounds: wounds noted size Size: As documented, bed pink and with tunneling, margins macerated, no odor, open, surrounding erythema and other Neuro oriented x3 and CN's II-XII intact bilaterally Psych mental status grossly normal, thought process normal, cooperative and affect normal Appearance: grossly normal Debridement Note Debridement Note Wound debrided: Right Buttock Wound Grade/Stage: Stag IV Type of Debridement: Excisional debridement Anesthesia Used: 5% Lidocaine Gel Depth: Down to and including healthy tissue and in the subcutaneous layer Percentage of wound debrided: 100 Instrument Used: 7mm curette Tissue Removed: Slough and devitalized tissue Severity: Fat Layer Exposed Amount of bleeding with debridement: Mild Bleeding Controlled with: Pressure Patient tolerated procedure: Patient tolerated procedure well Post-Debridement Measurements and Additional Note: Post-Debridement Measurements/Treatment - Nurse 1 - General Ulcer Assessment Start: 08/15/23 11:34 Freq: Status: Active Protocol: KRISTIN Activity Type Activity Date Activity User E-sign Co-sign Detail Recorded Client Recorded Date Recorded By Document 08/15/23 11:34 KW wound center 08/15/23 11:45 KW 08/15/23 11:34 WC - Today's Visit Information Type of service Follow-up Visit (Physician/ELECTRONICS SUPERVISOR ) Arrival Mode Wheelchair Accompanied by PLUGGER Patient Identification Verified (Name & Yes ) Height and Weight Body Mass Index (BMI) 30.5 BMI Classification Obese Vital Signs Temperature (97.8 F-99.1 F) 97.2 F L Temperature Source Temporal Pulse Rate (60-100) 87 Pulse Location Monitor Respiratory Rate (12-18) 16 Respiratory rate source Observation Oxygen Delivery Method Room Air Blood Pressure (90/60-120/80) 131/70 H Blood Pressure Mean (mm Hg) 90 Source Monitor Position Sitting Blood Pressure Location Left Arm History Since Last Visit- (Skip if this is Patient's initial visit) Have you changed medications since your No last visit? Any new allergies or adverse reactions No Had a fall/change in ADL's that may No increase risk of falls Signs or symptoms of abuse and/or No neglect since last visit Have you been in the hospital since your No last visit? Has dressing in place as prescribed No Has compression in place as prescribed Yes Has offloadiing in place as prescribed Yes Experienced any changes in pain level or No management Left Footwear Regular Shoe Right Footwear Regular Shoe Pain Scale: 0-10 Numeric Is Patient Pain Free? Yes - Nurse 1 - General Ulcer Measurement Start: 08/15/23 11:34 Freq: Status: Active Protocol: Activity Type Activity Date Activity User E-sign Co-sign Detail Recorded Client Recorded Date Recorded By Document 08/15/23 11:34 KW wound center 08/15/23 11:45 08/15/23 11:34 Wound Center Nurse 1 #7 RT ISCHIUM -Current Size (cm) - Length 2.5 -Current Size (cm) - Width 2 -Current Size (cm) - Depth 4.5 -Total Square Cm 5.0 -Date of Last Picture (Recall this 08/15/23 field) -Tunneling Yes -Tunneling Position (O'clock) 2 -Tunneling Distance (cm) 5.2 -Granulation Amt Large (67-100%) -Granulation Quality Red -Texture (Cassandra-wound Skin Appearance) Assessed,Rash -Moisture (Cassandra-wound Skin Appearance) Assessed, Maceration -Color (Cassandra-wound Skin Appearance) Assessed, Erythema -Temperature (Cassandra-wound Skin No Abnormality Appearance) (Pt Warm) -Tenderness on Palpation (Cassandra-wound No Skin Appearance) -Ulcer Cleansing Not Cleansed -Foul Odor after Cleansing No -Anesthetic Used 4% Lidocaine Solution WC - Nurse 2 - General Ulcer CM Notes Start: 08/15/23 11:34 Freq: Status: Active Protocol: Activity Type Activity Date Activity User E-sign Co-sign Detail Recorded Client Recorded Date Recorded By Document 08/15/23 11:54 [facility] 08/15/23 12:03 08/15/23 11:54 Wound Center Nurse 2 -Time 11:54 -Correct Patient Yes -Correct Side, Site, Position Yes -Correct Procedure Yes -Procedure Performed Yes -Type of Procedure Debridement -Clinical Debridement Subcutaneous -Tissue Removed Subcutaneous -Post Debridement (cm) - Length 2.0 -Post Debridement (cm) - Width 1.5 -Post Debridement (cm) - Depth 3.5 -Total Square (Post) (cm) 3.00 -Area of Debridement (cm) - Length 2.0 -Area of Debridement (cm) - Width 1.5 -Total Square (Area) (cm) 3.00 -Tunneling Yes -Tunneling Position (O'clock) 12 -Tunneling Distance (cm) 4.7 -Tunneling Position #2 (O'clock) 2 -Tunneling Distance #2 (cm) 6.3 -Undermining/Tunneling No -Wound/Ulcer Outcome Not Healed -Bleeding Controlled with Pressure -Treatment Response Procedure Tolerated Well -Debridement - Subq, 1st 20sq cm Yes Pain Scale: 0-10 Numeric Is Patient Pain Free? Yes Assessment/Plan Assessment/Plan (1) Decubitus ulcer of right buttock, stage 4: CODE(S): L89.314 - Pressure ulcer of right buttock, stage 4 (2) Spina bifida of lumbar spine: CODE(S): Q05.7 - Lumbar spina bifida without hydrocephalus (3) Osteomyelitis of right side of pelvis: CODE(S): M86.9 - Osteomyelitis, unspecified (4) Paraplegia: CODE(S): G82.20 - Paraplegia, unspecified (5) Uses wheelchair: CODE(S): Z99.3 - Dependence on wheelchair PLAN: Plan Debridement done as documented above, procedure was well-tolerated. She has no acute concerns at this time. Has only applied the wound VAC for 24 hours and she states that it came off in the middle of the night. Did not come in with her supplies but will go back home to get it. Worsening depth and tunneling. Probes to bone. Surrounding area of maceration. No imaging done during hospitalization at [facility] so x-ray has been ordered. Additional labs including CBC, CMP, A1c, ESR and CRP also ordered. Prealbumin ordered as well. Compliance with wound VAC very strongly recommended, she was advised that she has significant depth and tunneling. In the past, has had several episodes of wound breakdown necessitating surgery however, she states that she was told by her most recent surgeon that no further surgical intervention would be feasible ..... We discussed the possibility for hyperbaric oxygen treatment if chronic osteomyelitis is noted but, she is hesitant to this modality of treatment. For now, continue wound VAC at 150 mmHg, change every other day. Optimal protein intake and diabetes control also recommended. Has an appointment with her residential property manager on the . Continue the chronic wound care management. Her questions were answered and she was advised to let us know if she has any further questions or concerns. This note was generated with Inbilination software. It may contain incorrect words, spelling, and punctuation that were not noted in checking the note before signing.
--- NOTE | 2023-08-15 15:30 | RAD_ITS ---
We are attempting to reach an attending provider to discuss findings. An addendum with communication details will be sent when the communication is complete. STUDY: X-RAY - PELVIS REASON FOR EXAM: Female, 43 years old. STAGE 4 R BUTTOCK ULCER / HX OSTEOMYELITIS TECHNIQUE: One view of the pelvis was obtained. COMPARISON: None. FINDINGS: There is a non-specific bowel gas pattern. Suprapubic catheter noted in situ Normal bilateral iliac wings, sacroiliac joints and visualized sacrum. Normal visualized bilateral superior and inferior pubic rami. Normal pubic symphysis. Normal ischial tuberosities. There is a displaced fracture of the right femoral neck which appears old however there does appear to be some mild irregularity of cortex of the residual portion of the femoral head as well as the right ischium possibly inflammatory. Possibility of acute osteomyelitis cannot be entirely excluded. Normal visualized left femoral head. Normal left acetabulum. Normal left hip joint. RAD/Pelvis 1 or 2 Views IMPRESSION: Old displaced fracture of the right femoral neck. Cannot definitively exclude acute osteomyelitis of the residual portion of the femoral head and right ischium. CT or MRI would be helpful for further evaluation. Electronically Signed: Gabe Mills MD at 20:56 EDT ,
[2023-08-15 16:16] LABS: Erythrocyte Sedimentation Rate 47 mm/hr (0-30)
[2023-08-15 16:19] LABS: Absolute Lymphocyte Count 1.25 X10^3/uL (0.83-4.51); Absolute Neutrophil Count 7.1 X10^3/uL (2.0-7.7); Basophil# 0.03 X10^3/uL; Basophil% 0.3 % (0-1); Eosinophil# 0.16 X10^3/uL; Eosinophils% 1.7 % (0-5); Hematocrit 41.1 % (37-47); Hemoglobin 13.2 g/dL (12.0-15.0); Lymphocyte # 1.25 X10^3/ul (0.83-4.51); Lymphocyte % 13.6 % (19-41); Mean Corp Hgb Conc 32.1 g/dL (32-36); Mean Corpuscular Hgb 28.4 pg (27.0-32.0); Mean Corpuscular Volume 88.4 fL (81-99); Mean Platelet Vol. 9.5 fl (6.2-12.0); Monocyte# 0.65 X10^3/uL; Monocyte% 7.1 % (0-10); NRBC Flagged by Analyzer 0 % (0-5); Neutrophil # 7.09 X10^3/uL (2.7-7.7); Platelet Count 379 K/mm3 (150-450); RBC Distribution Width CV 12.9 % (11.6-14.6); Red Blood Count 4.65 M/mm3 (4.2-5.4); White Blood Count 9.2 K/mm3 (4.4-11.0)
[2023-08-15 17:06] LABS: Hemoglobin A1c 8.2 % (3.8-5.6)
[2023-08-16 00:56] LABS: BUN 18 mg/dL (7-18); Creatinine, Serum 0.68 mg/dL (0.55-1.02); Glucose 148 mg/dL (74-106)
[2023-08-16 00:57] LABS: ALB/GLOB Ratio 0.7 RATIO (0.9-2.4); AST(SGOT) 12 U/L (15-37); Alanine Aminotransfer ALT/SGPT 16 U/L (13-56); Albumin, Serum 3.2 g/dL (3.2-5.0); Alkaline Phosphatase 135 U/L (45-117); Anion Gap 7 (5-15); Calcium,Total 9.2 mg/dL (8.5-10.1); Chloride 107 mmol/L (98-107); Globulin 4.3 g/dL (2.2-4.2); Potassium 3.8 mmol/L (3.5-5.1); Protein, Total 7.5 g/dL (6.4-8.2); Sodium Level 138 mmol/L (136-145)
[2023-08-21 14:06] LABS: BUN/Creat Ratio 26.6 RATIO (10-20); EST Glomerular Filtration Rate 100 mL/min (>60); Est Glom Filt Rate - Afr Amer 122 mL/min (>60); Prealbumin 13.3 mg/dL (20.0-40.0)
== END 2023-09-08 23:59 | disposition home or self-care (01) ==
LOC: WC 11:53
PROVIDERS: PCP Internal Medicine; Referring Provider Internal Medicine; Visit Provider Internal Medicine
DX: L89.314 Pressure ulcer of right buttock, stage 4 (principal); G82.20 Paraplegia, unspecified; M86.9 Osteomyelitis, unspecified; Q05.7 Lumbar spina bifida without hydrocephalus; E10.65 Type 1 diabetes mellitus with hyperglycemia; Z99.3 Dependence on wheelchair
CPT/HCPCS: 11042; 36415; 72170; 80053; 83036; 84134; 85025; 85652; 86140

== ENCOUNTER 2023-08-15 22:42 | Emergency (ER) | payer MEDICARE, MEDICAID, SELFPAY ==
[2023-08-15 22:44] VITALS: BP 162/79; PULSE 90; RESP 16; TEMP 36.3; O2SAT 97; BMI 31.1
[2023-08-15 22:50] VITALS: BP 162/79; PULSE 90; RESP 16; TEMP 36.3; O2SAT 97
--- NOTE | 2023-08-15 23:09 | CT_ITS ---
INDICATION: wound, R hip/ischium poss osteomyelitis EXAMINATION: PELVIS WITH CONTRAST - CT Pelvis W/ Contrast Injection TECHNIQUE: Helically acquired images were obtained of the pelvis following IV contrast. The protocol utilizes one or more of the following dose reduction techniques: automated exposure control, adjustment of mA and/or kV according to patient size,and/or use of iterative reconstruction technique. IV Contrast dosage and agent: IV 100mL [id number]-370 Oral contrast: None. Radiation Dose (If provided by facility): 24.16 846.35 COMPARISON: CT PelvisMay 2022 FINDINGS: Multiple heterogeneous masses are seen in the uterus the largest measures 6.2 cm suggesting fibroids. BOWEL: No evidence of acute appendicitis. No stomach or bowel distension. No focal inflammatory change. LYMPH NODES: No enlarged mesenteric or retroperitoneal lymph nodes. VESSELS: Aorta is non-dilated. URINARY BLADDER: Unremarkable. REPRODUCTIVE ORGANS: No pelvic masses. ABDOMINAL WALL: No discrete abdominal or pelvic wall hernia. BONES: There is decubitus ulcer on right side extending to the right hip and ischium. There is joint effusion in the right hip suggesting septic arthritis. Bone erosions are seen in the ischium, consistent with osteomyelitis. There is displaced right femoral neck fracture. CT/Pelvis WITH IV Contrast IMPRESSION: There is decubitus ulcer on right side extending to the right hip and ischium. There is joint effusion in the right hip suggesting septic arthritis. Bone erosions are seen in the ischium, consistent with osteomyelitis. There is displaced right femoral neck fracture. Electronically Signed: Abel Oglesby MD at 1:34 EDT ,
--- NOTE | 2023-08-15 23:12 | EDS_ITS ---
HPI History of Present Illness Chief Complaint: Wound Informant: patient and family (x2) Narrative Narrative: Wheelchair-bound patient with spina bifida has an associated right buttock/sacral wound that has been present for the past month or so, she has had a wound VAC on it for the past few days, and had trouble staying on and she went to wound care today and they were able to get a good seal and make it work again. To the patient's knowledge there have not necessarily been any concerns about infection, but they were concerned about the wound tunneling and they told her that there was new tissue forming in some of it, but they obtained labs and an x-ray of the right hip while she was there. She was sent into the ER tonight because the x-ray resulted a couple hours ago and the nurse practitioner on-call was contacted about the fact that they are unable to rule out osteomyelitis. The patient denies having any pain or systemic symptoms such as fevers, chills, malaise/weakness. She does not have a definitive sensory level, she states she has partial sensation in her pelvis and upper thighs areas. She is not having pain in the area of the wound. [facility] Medical History Swelling of right foot Arthritis Uses wheelchair Ochoa catheter in place Back pain Blackout Non-smoker Diabetes Methicillin resistant Staphylococcus epidermidis infection Pseudomonas aeruginosa infection History of MRSA infection Pressure ulcer of sacral region, stage 4 Acute postoperative anemia due to expected blood loss Diabetes mellitus treated with insulin Anemia of chronic disease Urinary incontinence Skin necrosis Pressure ulcer of sacral region, unstageable Right ischial pressure sore, stage 4 Osteomyelitis of right side of pelvis Decubitus ulcer Medulloblastoma Anemia Leukocytosis Anxiety and depression Vertigo Decubitus ulcer of coccyx, stage 2 Health care maintenance Difficulty transferring Type 1 diabetes mellitus Decubitus ulcer of right buttock, stage 3 Insulin dependent diabetes mellitus Buttock wound High cholesterol Cancer Spina bifida of lumbar spine Home Medications ?Medication ?Instructions ?Recorded ?Last Taken ?Type blood sugar diagnostic (OneTouch #120 ea 05/31/22 Unknown Rx Verio test strips) blood-glucose transmitter (Dexcom #1 ea 10/10/22 Unknown Rx G6 Transmitter device) pen needle, diabetic 32 gauge x #400 ea 01/07/23 Unknown Rx (BD Ultra-Fine Charla Pen Needle) insulin syringe-needle U-100 0.3 #100 ea 01/15/23 Unknown Rx mL 31 gauge x 5/16 (BD Insulin Syringe Ultra-Fine) ferrous sulfate 325 mg (65 mg 325 mg PO DAILY #90 tabs 03/12/23 03/20/23 Rx iron) tablet oxybutynin chloride 10 mg 10 mg PO DAILY 03/20/23 03/20/23 History tablet,extended release 24 hr insulin aspart U-100 100 unit/mL 8 unit (0.08 mL) subcut TID #15 mL 05/28/23 Unknown Rx (3 mL) subcutaneous pen escitalopram oxalate 5 mg tablet 5 mg PO DAILY #30 tabs 07/01/23 Unknown Rx (Lexapro) insulin glargine 100 unit/mL 15 unit subcut QHS 08/15/23 Unknown History subcutaneous solution Allergy/AdvReac Type Severity Reaction Status Date / Time trospium Allergy Intermediate Hives Verified 08/15/23 22:44 Latex, Natural Rubber Allergy Hives Verified 08/15/23 22:44 Family History Other Cancer Diabetes FH: defects Surgical History History of creation of ostomy Hx of surgical procedure Status post repair of complex wound History of release of tendon History of brain surgery Social History current occupational status: disabled Smoking Status: Never smoker alcohol intake: current alcohol intake frequency: holidays/special occasions only Alcohol type: wine substance use type: does not use do you feel safe at home: Yes additional social history: In wheel chair ROS ROS ED Constitutional Constitutional ED: Denies chills or fever(s) Eyes Eyes: Denies change in vision or diplopia ENT ENT ED: Denies rhinorrhea or sore throat Cardiovascular Cardiovascular: Denies chest pain or palpitations Respiratory/Chest Respiratory/Chest: Denies cough or dyspnea Gastrointestinal Gastrointestinal: Denies abdominal pain, diarrhea, nausea or vomiting Genitourinary Genitourinary ED: Denies dysuria or hematuria Musculoskeletal Musculoskeletal: Denies back pain or neck pain Integumentary Reports as per HPI and wounds; Denies abscess or rash Neurologic Neurologic: Reports paresthesias RLE and LLE and weakness; Denies headache(s) Psychiatric Psychiatric: Denies suicidal thoughts EXAM Physical Exam Const Vital Signs: 08/15/23 22:44 08/15/23 22:50 08/15/23 23:50 Temperature 97.3 F L 97.3 F L 98.2 F Temperature Source Temporal Temporal Temporal Pulse Rate 90 90 83 Respiratory Rate 16 16 18 Blood Pressure 162/79 H 162/79 H 149/77 H Blood Pressure Mean 106 106 101 Pulse Ox 97 97 99 Oxygen Delivery Method Room Air Room Air Room Air 08/16/23 01:00 08/16/23 02:00 08/16/23 03:00 Temperature 98.3 F 98.1 F 98.2 F Temperature Source Temporal Temporal Temporal Pulse Rate 86 87 96 Respiratory Rate 15 16 16 Blood Pressure 138/95 H 139/81 H 139/82 H Blood Pressure Mean 109 100 101 Pulse Ox 98 98 98 Oxygen Delivery Method Room Air Room Air Room Air Positive well nourished and well developed General Appearance ED: well developed and NAD HEENT Reports moist mucous membranes normocephalic and atraumatic Eyes PERRL and EOMs intact bilaterally Neck full ROM and supple Resp normal respiratory effort and clear to auscultation bilaterally Cardio regular rate, regular rhythm and no murmurs Rate: Negative for tachycardic GI non-tender and non-distended Auscultation: normoactive bowel sounds Palpation: soft Back/Spine no CVA tenderness Extremity normal to inspection General Extremety ED: Negative for edema, pulses abnormal or tenderness General Extremity: Negative for edema or pulses abnormal Neuro oriented x3 and CN's II-XII intact bilaterally Neuro Narrative: Paralyzed both lower extremities, decreased sensation throughout both of them. Sensorium / Orientation: awake and alert Psych mental status grossly normal Skin no rashes or lesions noted Skin Narrative: Wound right buttock toward perineum, wound VAC in place, skin that is visible around the sponge looks normal without any erythema. There is no subcutaneous emphysema or tenderness around the entire area. There is no fluctuance or fluid drainage actively in any significant amounts. MDM MDM MDM Narrative Medical decision making narrative: She had labs done today. She does not have a leukocytosis but her ESR is elevated at 47, the CRP and chemistries are not back yet. I reviewed the x-ray which shows a fracture of the right femoral neck/head, the duration is unknown, she had a CT and MRI a year ago that did not show it. Radiologist mention that he was unable to rule out osteomyelitis of the residual piece of the femoral head and part of the ischium. Given all of this I will not be able to rule out osteomyelitis tonight since her ESR is abnormal. The CRP is not back yet but if abnormal again not specific to osteomyelitis but not sensitive enough to rule it out. Will go forward and get a CT of the pelvis with IV contrast since MRI is not emergently available at this time, treated with empiric antibiotics admit her to the hospital. I discussed with lab personnel they were able to get the patient's other labs performed, I reviewed these, CRP is 55 significantly elevated as well. I reviewed the CT pelvis images and report which I agree with, it does show a joint effusion at the fracture site, they are saying this looks like it could be a septic arthritis. I am wondering also if this could be hematoma if this fracture occurred recently but we really do not know. The patient was surprised by the fact that there is a fracture on the x-ray and CT. She is certainly in and out of wheelchair, but she cannot think of when this happened. There also is some evidence of osteomyelitis of the ischium. Discussed with orthopedics and spine surgery. Management of this is unclear right now. They agree effusion may or may not be infectious with regards to the right hip that is fractured and the occurrence of the fracture time-don is unknown; if it occurred recently it could be a hematoma as opposed to infection. Plastics will likely need to be involved as well as orthopedics, but since we do not have any plastics coverage, it seems that transfer to a higher level of care will be the most appropriate disposition at this time. She is established in the [facility] system and has had plastic surgery at [facility] in the past, actually has an outpatient appointment with plastics in [place] with [facility] pending. Therefore we are attempting to transfer her to a [facility] hospital. I discussed this with Dr. Fabien Prasad with orthopedics at [facility]. We discussed all of the laboratory, clinical, and CT/x-ray findings. He states this is a fairly common scenario with spina bifida patients, and he specializes in cases like this. He states these ischium abnormalities on the CT are likely to be chronic osteomyelitis and not acute osteomyelitis and are not in need of antibiotic therapy. He does not recommend oral antibiotics or transfer/inpatient disposition. He states he would be happy to see the patient as an outpatient and he would be able to arrange everything that she would need by having her follow-up. I discussed with the patient she is very happy to do this as opposed to be admitted. History & Record Review Additional record(s) reviewed:: Prior labs (Outpatient today) Lab Data Attestation: I reviewed the patient's lab results. Labs: Laboratory Results - last 24 hr 08/16/23 08/16/23 00:22 03:11 POC Glucose 267 H 173 H Radiography Diagnostic Testing: Clinical Impression(s) from Imaging Studies Pelvis CT 08/15/23 23:09 IMPRESSION: There is decubitus ulcer on right side extending to the right hip and ischium. There is joint effusion in the right hip suggesting septic arthritis. Bone erosions are seen in the ischium, consistent with osteomyelitis. There is displaced right femoral neck fracture. Electronically Signed: Abel Oglesby MD at 1:34 EDT Reading Location ID and State: [facility] / [place] Tel , Service support , Management Discussion w/another healthcare provider: Sales Service Assistant (Multiple, see above) Discharge Plan Triage Chief Complaint: Wound ED Provider: Blake Bishop Dx/Rx/DC Orders Clinical Impression: Closed fracture of right hip, Effusion of right hip, Spina bifida of lumbar spine, Decubitus ulcer of right buttock, stage 4, Insulin dependent diabetes mellitus, Chronic osteomyelitis of right pelvic region Instructions: ED Wound Care Prescriptions: No Action (DME) Dexcom G6 Transmitter Device See Rx Instructions .Route Qty: 1 0RF Rx Instructions: 1 transmitter q 90 days (DME) insulin syringe-needle U-100 [BD Insulin Syringe Ultra-Fine] 0.3 mL 31 gauge x 5/16 syringe See Rx Instructions .Route Qty: 100 3RF Rx Instructions: daily escitalopram oxalate [Lexapro] 5 mg tablet 5 mg PO DAILY Qty: 30 1RF oxybutynin chloride 10 mg tablet extended release 24hr 10 mg PO DAILY Patient Comments: take 1 tablet by mouth every morning insulin glargine 100 unit/mL solution 15 unit subcut QHS (DME) OneTouch Verio test strips Strip See Rx Instructions .Route Qty: 120 5RF Rx Instructions: 4x/day (DME) pen needle, diabetic [BD Ultra-Fine Charla Pen Needle] 32 gauge x 5/32 needle See Rx Instructions .ROUTE .MEDSUPPLY Qty: 400 1RF Rx Instructions: 4 times daily ferrous sulfate 325 mg (65 mg iron) tablet 325 mg PO DAILY Qty: 90 0RF insulin aspart U-100 100 unit/mL (3 mL) insulin pen 8 unit subcut TID Qty: 15 4RF Primary Care Provider: Cosmo Smith Referrals: Dr. Fabien Prasad [Other] - As soon as possible (call for appt) Cosmo Smith MD [Primary Care Provider] - Print Language: Kinyarwanda Disposition Disposition: Acute Care [facility]
[2023-08-15 23:50] VITALS: BP 149/77; PULSE 83; RESP 18; TEMP 36.8; O2SAT 99
[2023-08-16] MEDS: Ceftriaxone 2 GM in 0.9% Normal Saline (50mL MB+) 50 ML IV (00:27)
[2023-08-16 00:50] LABS: Bedside Glucose 267 mg/dL (74-106)
[2023-08-16 01:00] VITALS: BP 138/95; PULSE 86; RESP 15; TEMP 36.8; O2SAT 98
[2023-08-16] MEDS: Vancomycin HCl 750 MG in 0.9% Normal Saline (250mL Bag) 250 ML 250 MG IV (01:21)
[2023-08-16 02:00] VITALS: BP 139/81; PULSE 87; RESP 16; TEMP 36.7; O2SAT 98
--- NOTE | 2023-08-16 02:03 | CONS.ORTHO ---
HPI Consult Data Date of Consult: 08/16/23 HPI Narrative HPI Narrative: VICTORIANO DE LOS SANTOS, is a 43 F who presents with R buttock ulcer, and CT results showing femoral neck fracture and fluid possibly indicating a septic joint in a patient with spina bifida. Unknown who the patient is following with locally beyond Dr. Smith. [facility] Medical History Swelling of right foot Arthritis Uses wheelchair Ochoa catheter in place Back pain Blackout Non-smoker Diabetes Methicillin resistant Staphylococcus epidermidis infection Pseudomonas aeruginosa infection History of MRSA infection Pressure ulcer of sacral region, stage 4 Acute postoperative anemia due to expected blood loss Diabetes mellitus treated with insulin Anemia of chronic disease Urinary incontinence Skin necrosis Pressure ulcer of sacral region, unstageable Right ischial pressure sore, stage 4 Osteomyelitis of right side of pelvis Decubitus ulcer Medulloblastoma Anemia Leukocytosis Anxiety and depression Vertigo Decubitus ulcer of coccyx, stage 2 Health care maintenance Difficulty transferring Type 1 diabetes mellitus Decubitus ulcer of right buttock, stage 3 Insulin dependent diabetes mellitus Buttock wound High cholesterol Cancer Spina bifida of lumbar spine Home Medications ?Medication ?Instructions ?Recorded ?Last Taken ?Type blood sugar diagnostic (OneTouch #120 ea 05/31/22 Unknown Rx Verio test strips) blood-glucose transmitter (Dexcom #1 ea 10/10/22 Unknown Rx G6 Transmitter device) pen needle, diabetic 32 gauge x #400 ea 01/07/23 Unknown Rx 5/32 (BD Ultra-Fine Charla Pen Needle) insulin syringe-needle U-100 0.3 #100 ea 01/15/23 Unknown Rx mL 31 gauge x 5/16 (BD Insulin Syringe Ultra-Fine) ferrous sulfate 325 mg (65 mg 325 mg PO DAILY #90 tabs 03/12/23 03/20/23 Rx iron) tablet oxybutynin chloride 10 mg 10 mg PO DAILY 03/20/23 03/20/23 History tablet,extended release 24 hr insulin aspart U-100 100 unit/mL 8 unit (0.08 mL) subcut TID #15 mL 05/28/23 Unknown Rx (3 mL) subcutaneous pen escitalopram oxalate 5 mg tablet 5 mg PO DAILY #30 tabs 07/01/23 Unknown Rx (Lexapro) insulin glargine 100 unit/mL 15 unit subcut QHS 08/15/23 Unknown History subcutaneous solution Allergy/AdvReac Type Severity Reaction Status Date / Time trospium Allergy Intermediate Hives Verified 08/15/23 22:44 Latex, Natural Rubber Allergy Hives Verified 08/15/23 22:44 Family History Other Cancer Diabetes FH: defects Surgical History History of creation of ostomy Hx of surgical procedure Status post repair of complex wound History of release of tendon History of brain surgery Social History current occupational status: disabled Smoking Status: Never smoker alcohol intake: current alcohol intake frequency: holidays/special occasions only Alcohol type: wine substance use type: does not use do you feel safe at home: Yes additional social history: In wheel chair Vital Signs Vital Signs Vital Signs: 08/15/23 22:44 08/15/23 22:50 08/15/23 23:50 Temperature 97.3 F L 97.3 F L 98.2 F Temperature Source Temporal Temporal Temporal Pulse Rate 90 90 83 Respiratory Rate 16 16 18 Blood Pressure 162/79 H 162/79 H 149/77 H Blood Pressure Mean 106 106 101 Pulse Ox 97 97 99 Oxygen Delivery Method Room Air Room Air Room Air 08/16/23 01:00 Temperature 98.3 F Temperature Source Temporal Pulse Rate 86 Respiratory Rate 15 Blood Pressure 138/95 H Blood Pressure Mean 109 Pulse Ox 98 Oxygen Delivery Method Room Air Weight Weight: 101 lb 13.657 oz Body Mass Index (BMI) 31.1 Lab / Micro Data Labs: Laboratory Results - last 24 hr 08/16/23 00:22: POC Glucose 267 H Imaging Radiology Impression Pelvis CT 08/15/23 23:09 IMPRESSION: There is decubitus ulcer on right side extending to the right hip and ischium. There is joint effusion in the right hip suggesting septic arthritis. Bone erosions are seen in the ischium, consistent with osteomyelitis. There is displaced right femoral neck fracture. Electronically Signed: Abel Oglesby MD at 1:34 EDT , Assessment & Plan Assessment/Plan (1) Effusion of right hip: PLAN: 43 yr F with spina bifida and right hip fracture, with decubitus ulcer tracking to the hip with septic joint and osteomyelitis in the differential. This is a highly complex patient. Unknown who is managing locally, but this is far beyond anything that I am comfortable managing, especially at 155am when I was called. Recommend either finding a spine surgeon acutely overnight to take this on or transferring the patient to a hospital with a higher level of care who can manage this difficult and complex issue. Unfortunately I will not be taking over the orthopedic care of this patient and I made it clear to Dr. Payton. Thank you for the consult. (2) Closed fracture of right hip: (3) Acute osteomyelitis of right pelvic region: (4) Decubitus ulcer of right buttock, stage 4:
[2023-08-16 03:00] VITALS: BP 139/82; PULSE 96; RESP 16; TEMP 36.8; O2SAT 98
[2023-08-16 03:30] LABS: Bedside Glucose 173 mg/dL (74-106)
[2023-08-16 04:00] VITALS: BP 139/86; PULSE 93; RESP 16; TEMP 36.6; O2SAT 99
== END 2023-08-16 04:52 | disposition short-term general hospital (02) ==
PROVIDERS: Emergency Provider Emergency Medicine; PCP Internal Medicine; Visit Provider Emergency Medicine
DX: M25.451 Effusion, right hip (principal); L89.314 Pressure ulcer of right buttock, stage 4; M86.18 Other acute osteomyelitis, other site; S72.001A Fracture of unspecified part of neck of right femur, initial encounter for closed fracture; Z79.4 Long term (current) use of insulin; E11.69 Type 2 diabetes mellitus with other specified complication; E78.00 Pure hypercholesterolemia, unspecified; F41.8 Other specified anxiety disorders; Z79.899 Other long term (current) drug therapy
CPT/HCPCS: 72193; 82962; 99283; J7030; J7050; A4216; J0696

== ENCOUNTER 2023-09-05 19:19 | Emergency (ER) | payer MEDICARE, MEDICAID, SELFPAY ==
[2023-09-05 19:21] VITALS: BP 138/65; PULSE 97; RESP 16; TEMP 36.8; O2SAT 98; BMI 34.3
--- NOTE | 2023-09-05 19:45 | EDS_ITS ---
HPI History of Present Illness Chief Complaint: Ochoa C/O Informant: patient, EMS and SNF Narrative Narrative: 43-year-old female history of spina bifida who has a chronic suprapubic catheter placed in March [address] Marshall. This was done to help with the healing process of chronic decubitus ulcers/chronic osteomyelitis. Patient states over the past couple days she noticed that the catheter was leaking. She states the long term today remove the catheter to replace it but they did not have any latex free catheters. Therefore the patient was transferred to the hospital to see if we had a latex free catheter. [facility] Medical History Abnormal x-ray Swelling of right foot Arthritis Uses wheelchair Ochoa catheter in place Back pain Blackout Non-smoker Diabetes Methicillin resistant Staphylococcus epidermidis infection Pseudomonas aeruginosa infection History of MRSA infection Pressure ulcer of sacral region, stage 4 Acute postoperative anemia due to expected blood loss Diabetes mellitus treated with insulin Anemia of chronic disease Urinary incontinence Skin necrosis Pressure ulcer of sacral region, unstageable Right ischial pressure sore, stage 4 Osteomyelitis of right side of pelvis Decubitus ulcer Medulloblastoma Anemia Leukocytosis Anxiety and depression Vertigo Decubitus ulcer of coccyx, stage 2 Health care maintenance Difficulty transferring Type 1 diabetes mellitus Decubitus ulcer of right buttock, stage 3 Insulin dependent diabetes mellitus Buttock wound High cholesterol Cancer Spina bifida of lumbar spine Home Medications ?Medication ?Instructions ?Recorded ?Last Taken ?Type blood sugar diagnostic (OneTouch #120 ea 05/31/22 Unknown Rx Verio test strips) blood-glucose transmitter (Dexcom #1 ea 10/10/22 Unknown Rx G6 Transmitter device) pen needle, diabetic 32 gauge x #400 ea 01/07/23 Unknown Rx 5/32 (BD Ultra-Fine Charla Pen Needle) insulin syringe-needle U-100 0.3 #100 ea 01/15/23 Unknown Rx mL 31 gauge x 5/16 (BD Insulin Syringe Ultra-Fine) ferrous sulfate 325 mg (65 mg 325 mg PO DAILY #90 tabs 03/12/23 03/20/23 Rx iron) tablet oxybutynin chloride 10 mg 10 mg PO DAILY 03/20/23 03/20/23 History tablet,extended release 24 hr insulin aspart U-100 100 unit/mL 8 unit (0.08 mL) subcut TID #15 mL 05/28/23 Unknown Rx (3 mL) subcutaneous pen escitalopram oxalate 5 mg tablet 5 mg PO DAILY #30 tabs 07/01/23 Unknown Rx (Lexapro) insulin glargine 100 unit/mL 15 unit subcut QHS 08/15/23 Unknown History subcutaneous solution folic acid 1 mg tablet 1 mg PO DAILY 09/05/23 Unknown History multivitamin (Daily Multi-Vitamin 1 tab PO DAILY 09/05/23 Unknown History tablet) Allergy/AdvReac Type Severity Reaction Status Date / Time trospium Allergy Intermediate Hives Verified 09/05/23 19:24 Latex, Natural Rubber Allergy Hives Verified 09/05/23 19:24 Family History Other Cancer Diabetes FH: defects Surgical History History of creation of ostomy Hx of surgical procedure Status post repair of complex wound History of release of tendon History of brain surgery Social History current occupational status: disabled Smoking Status: Never smoker alcohol intake: current alcohol intake frequency: holidays/special occasions only Alcohol type: wine substance use type: does not use do you feel safe at home: Yes additional social history: In wheel chair ROS ROS ED Constitutional Constitutional ED: Denies chills, fever(s) or weight loss Eyes Eyes: Denies change in vision or diplopia ENT ENT ED: Denies ear pain, rhinorrhea or sore throat Cardiovascular Cardiovascular: Denies chest pain, orthopnea, palpitations or racing heartbeat Respiratory/Chest Respiratory/Chest: Denies cough, dyspnea or orthopnea Gastrointestinal Gastrointestinal: Denies abdominal pain, diarrhea, nausea or vomiting Genitourinary Genitourinary ED: Reports other Details: See history of present illness Musculoskeletal Musculoskeletal: Denies arthralgias or myalgias Neurologic Neurologic: Denies headache(s) Psychiatric Psychiatric: Denies anxiety, depression, suicidal ideation or suicidal thoughts Endocrine Endocrinology: Denies polydipsia, polyphagia or polyuria Allergic/Immunologic Allergic/Immunologic ED: Denies mouth swelling, tongue swelling or urticaria EXAM Physical Exam Const Vital Signs: 09/05/23 19:21 Temperature 98.2 F Temperature Source Oral Pulse Rate 97 Respiratory Rate 16 Blood Pressure 138/65 H Blood Pressure Mean 89 Pulse Ox 98 Oxygen Delivery Method Room Air Positive well nourished and well developed General Appearance ED: well developed HEENT Reports normocephalic, head/scalp atraumatic and moist mucous membranes Eyes PERRL and EOMs intact bilaterally Neck no lymphadenopathy, supple and no JVD Resp normal respiratory effort and clear to auscultation bilaterally Cardio regular rate, regular rhythm and no murmurs GI normal to inspection, nondistended, normoactive bowel sounds and non-tender Palpation: soft Narrative: Catheter stoma appears very tight already. No bleeding. No leakage of urine Neuro oriented x3 Sensorium / Orientation: alert Psych mental status grossly normal Mood & Affect: Negative for depressed or tearful MDM MDM MDM Narrative Medical decision making narrative: Betadine was applied around the stoma and allowed to dry. Using sterile technique a 16 Green[place]ic latex free silicone catheter was inserted with minimal discomfort. Balloon was inflated with 5 cc of sterile saline. Free-flowing urine was noted. Leg bag secured. Betadine was washed off and surgical drain dressing placed. Patient will be discharged home to follow-up with urology as scheduled return if worsening or concerns History & Record Review Discussion w/independent historian: Patient Discharge Plan Triage Chief Complaint: Ochoa C/O ED Provider: Bryce Mcmahan Dx/Rx/DC Orders Clinical Impression: Complication, suprapubic catheter obstruction, Spina bifida of lumbar spine Instructions: Suprapubic Catheter Dc Prescriptions: No Action (DME) Dexcom G6 Transmitter Device See Rx Instructions .Route Qty: 1 0RF Rx Instructions: 1 transmitter q 90 days (DME) insulin syringe-needle U-100 [BD Insulin Syringe Ultra-Fine] 0.3 mL 31 gauge x 5/16 syringe See Rx Instructions .Route Qty: 100 3RF Rx Instructions: daily escitalopram oxalate [Lexapro] 5 mg tablet 5 mg PO DAILY Qty: 30 1RF oxybutynin chloride 10 mg tablet extended release 24hr 10 mg PO DAILY Patient Comments: take 1 tablet by mouth every morning folic acid 1 mg tablet 1 mg PO DAILY multivitamin [Daily Multi-Vitamin] Tablet 1 tab PO DAILY insulin glargine 100 unit/mL solution 15 unit subcut QHS (DME) OneTouch Verio test strips Strip See Rx Instructions .Route Qty: 120 5RF Rx Instructions: 4x/day (DME) pen needle, diabetic [BD Ultra-Fine Charla Pen Needle] 32 gauge x 5/32 needle See Rx Instructions .ROUTE .MEDSUPPLY Qty: 400 1RF Rx Instructions: 4 times daily ferrous sulfate 325 mg (65 mg iron) tablet 325 mg PO DAILY Qty: 90 0RF insulin aspart U-100 100 unit/mL (3 mL) insulin pen 8 unit subcut TID Qty: 15 4RF Primary Care Provider: Cosmo Smith Referrals: Cosmo Smith MD [Primary Care Provider] - Crystal Marshall MD [Med Staff - Active Staff] - Keep Jaison appointment Print Language: Indonesian Disposition Disposition: Home, Self Care
[2023-09-05 20:24] VITALS: BP 133/75; PULSE 107; RESP 16; TEMP 36.8; O2SAT 97
--- NOTE | 2023-09-05 20:24 | ED.RN ---
report given to [facility]
[2023-09-05 23:20] VITALS: BP 132/69; PULSE 99; RESP 16; O2SAT 95
== END 2023-09-06 01:16 | disposition home or self-care (01) ==
PROVIDERS: Emergency Provider Emergency Medicine; PCP Internal Medicine; Visit Provider Emergency Medicine
DX: Q05.7 Lumbar spina bifida without hydrocephalus (principal); Z79.4 Long term (current) use of insulin; E11.9 Type 2 diabetes mellitus without complications; E78.00 Pure hypercholesterolemia, unspecified; T83.018A Breakdown (mechanical) of other urinary catheter, initial encounter
CPT/HCPCS: 99282; A4216

== ENCOUNTER 2023-09-15 20:32 | Emergency (ER) | payer MEDICARE, MEDICAID, SELFPAY ==
[2023-09-15 20:34] VITALS: BP 141/81; PULSE 108; RESP 18; TEMP 36.7; O2SAT 97; BMI 33.4
--- NOTE | 2023-09-15 20:53 | EDS_ITS ---
HPI <SANDY Murillo - Last Filed: 09/15/23 21:22> History of Present Illness Chief Complaint: Ochoa C/O Narrative Narrative: 43-year-old female has a chronic suprapubic Ochoa catheter placed in March [address] Marshall. She has chronic urinary incontinence from spina bifida and it was placed to divert urine to help the healing process of a chronic decubitus ulcer. A few hours ago she developed pain and leakage at the skin site where the tube exits her lower abdomen. She states all the tubing looks normal and urine is still draining into the bag. She has no fever or chills. It was last replaced at [facility] on 09/05/2023. [facility] <SANDY Murillo - Last Filed: 09/15/23 21:22> [facility] Medical History Abnormal x-ray Swelling of right foot Arthritis Uses wheelchair Ochoa catheter in place Back pain Blackout Non-smoker Diabetes Methicillin resistant Staphylococcus epidermidis infection Pseudomonas aeruginosa infection History of MRSA infection Pressure ulcer of sacral region, stage 4 Acute postoperative anemia due to expected blood loss Diabetes mellitus treated with insulin Anemia of chronic disease Urinary incontinence Skin necrosis Pressure ulcer of sacral region, unstageable Right ischial pressure sore, stage 4 Osteomyelitis of right side of pelvis Decubitus ulcer Medulloblastoma Anemia Leukocytosis Anxiety and depression Vertigo Decubitus ulcer of coccyx, stage 2 Health care maintenance Difficulty transferring Type 1 diabetes mellitus Decubitus ulcer of right buttock, stage 3 Insulin dependent diabetes mellitus Buttock wound High cholesterol Cancer Spina bifida of lumbar spine Home Medications ?Medication ?Instructions ?Recorded ?Last Taken ?Type blood sugar diagnostic (OneTouch #120 ea 05/31/22 Unknown Rx Verio test strips) blood-glucose transmitter (Dexcom #1 ea 10/10/22 Unknown Rx G6 Transmitter device) pen needle, diabetic 32 gauge x #400 ea 01/07/23 Unknown Rx (BD Ultra-Fine Charla Pen Needle) insulin syringe-needle U-100 0.3 #100 ea 01/15/23 Unknown Rx mL 31 gauge x 5/16 (BD Insulin Syringe Ultra-Fine) ferrous sulfate 325 mg (65 mg 325 mg PO DAILY #90 tabs 03/12/23 03/20/23 Rx iron) tablet oxybutynin chloride 10 mg 10 mg PO DAILY 03/20/23 03/20/23 History tablet,extended release 24 hr insulin aspart U-100 100 unit/mL 8 unit (0.08 mL) subcut TID #15 mL 05/28/23 Unknown Rx (3 mL) subcutaneous pen escitalopram oxalate 5 mg tablet 5 mg PO DAILY #30 tabs 07/01/23 Unknown Rx (Lexapro) insulin glargine 100 unit/mL 15 unit subcut QHS 08/15/23 Unknown History subcutaneous solution folic acid 1 mg tablet 1 mg PO DAILY 09/05/23 Unknown History multivitamin (Daily Multi-Vitamin 1 tab PO DAILY 09/05/23 Unknown History tablet) Allergy/AdvReac Type Severity Reaction Status Date / Time trospium Allergy Intermediate Hives Verified 09/05/23 19:24 Latex, Natural Rubber Allergy Hives Verified 09/05/23 19:24 Family History Other Cancer Diabetes FH: defects Surgical History History of creation of ostomy Hx of surgical procedure Status post repair of complex wound History of release of tendon History of brain surgery Social History current occupational status: disabled Smoking Status: Never smoker alcohol intake: current alcohol intake frequency: holidays/special occasions only Alcohol type: wine substance use type: does not use do you feel safe at home: Yes additional social history: In wheel chair ROS <SANDY Murillo - Last Filed: 09/15/23 21:22> ROS ED ROS Narrative Constitutional: Negative for fever, chills, malaise. GI: Negative for abdominal pain, nausea, vomiting. : Negative for hematuria. EXAM <SANDY Murillo - Last Filed: 09/15/23 21:22> Physical Exam Narrative Exam Narrative: CONST: Patient sitting in no acute distress. EYES: Normal inspection. ENT: Normal inspection, moist mucous membranes. NECK: Normal inspection. RESP: No respiratory distress, CTAB. CVS: Regular rate and rhythm, no murmur, no gallop. ABD: Soft and nontender, no guarding or rebound, colostomy bag left lower abdomen. Suprapubic urostomy tube in place with no surrounding erythema or leakage of urine noted. SKIN: Color normal, no rash, warm, dry, intact. EXTREMITIES: Normal appearance, chronic atrophy. NEURO: Alert and answering questions appropriately. PSYCH: Normal affect. Const Vital Signs: 09/15/23 20:34 Temperature 98.1 F Temperature Source Oral Pulse Rate 108 H Respiratory Rate 18 Blood Pressure 141/81 H Blood Pressure Mean 101 Pulse Ox 97 Oxygen Delivery Method Room Air <Dr. Subhash Pace DO - Last Filed: 09/15/23 21:33> Physical Exam Const Vital Signs: 09/15/23 20:34 Temperature 98.1 F Temperature Source Oral Pulse Rate 108 H Respiratory Rate 18 Blood Pressure 141/81 H Blood Pressure Mean 101 Pulse Ox 97 Oxygen Delivery Method Room Air MDM <SANDY Murillo - Last Filed: 09/15/23 21:22> [facility] Narrative Medical decision making narrative: Her suprapubic Ochoa catheter is in place. There are no external signs of infection or leakage around the site. It was flushed by the nurse and it is draining appropriately into the leg bag with no signs of leakage. She will be discharged back to her facility and should keep her normal follow-up with Dr. Marshall. <Dr. Subhash Pace, - Last Filed: 09/15/23 21:33> [facility] Treatment and Re-Evaluation :: I have personally performed a face to face assessment of the patient and have reviewed the SPRING Note. I performed a substantive portion of the visit including all aspects of the following. My gomez findings include: History: Patient presents with leaking around her suprapubic catheter that was noticed today. Patient states that when she went down to eat dinner at her extended care facility [facility], she noticed that her pants were wet. Patient states there was urine leaking around her Ochoa catheter. Patient denies any bleeding. Patient denies any redness or swelling at the catheter site. Patient denies any fevers or chills. Patient denies any nausea or vomiting. Patient denies any back pain. Exam: Vital signs are stable. Patient is afebrile. Patient is in no acute distress. Oral mucosa is pink and moist. Neck is supple. Trachea is midline. There is no JVD. Abdomen is soft. Bowel sounds are normal. There is no tenderness. The catheter site is intact. There is no leaking currently at the catheter site. There is no erythema or signs of infection. Medical Decision Making: The suprapubic catheter was irrigated. There is no blood noted. There is clear urine returning from the catheter. There is no leaking around the catheter site. Patient was instructed to keep the catheter site clean and dry. Patient was instructed to follow-up with her primary care physician and urologist in 5 to 7 days. Patient was instructed to return if worse in any way. Patient understood and was agreeable with the plan. All questions were answered. Discharge Plan Triage Chief Complaint: Ochoa C/O ED Midlevel Provider: Teresa Montgomery ED Provider: Subhash Pace Dx/Rx/DC Orders Clinical Impression: Chronic suprapubic catheter, Spina bifida of lumbar spine Instructions: Suprapubic Catheter Dc Prescriptions: No Action (DME) Dexcom G6 Transmitter Device See Rx Instructions .Route Qty: 1 0RF Rx Instructions: 1 transmitter q 90 days (DME) insulin syringe-needle U-100 [BD Insulin Syringe Ultra-Fine] 0.3 mL 31 gauge x 5/16 syringe See Rx Instructions .Route Qty: 100 3RF Rx Instructions: daily escitalopram oxalate [Lexapro] 5 mg tablet 5 mg PO DAILY Qty: 30 1RF oxybutynin chloride 10 mg tablet extended release 24hr 10 mg PO DAILY Patient Comments: take 1 tablet by mouth every morning folic acid 1 mg tablet 1 mg PO DAILY multivitamin [Daily Multi-Vitamin] Tablet 1 tab PO DAILY insulin glargine 100 unit/mL solution 15 unit subcut QHS (DME) OneTouch Verio test strips Strip See Rx Instructions .Route Qty: 120 5RF Rx Instructions: 4x/day (DME) pen needle, diabetic [BD Ultra-Fine Charla Pen Needle] 32 gauge x 5/32 needle See Rx Instructions .ROUTE .MEDSUPPLY Qty: 400 1RF Rx Instructions: 4 times daily ferrous sulfate 325 mg (65 mg iron) tablet 325 mg PO DAILY Qty: 90 0RF insulin aspart U-100 100 unit/mL (3 mL) insulin pen 8 unit subcut TID Qty: 15 4RF Primary Care Provider: Cosmo Smith Referrals: Cosmo Smith MD [Primary Care Provider] - Crystal Marshall MD [Med Staff - Active Staff] - Activity Restrictions/Additional Instructions: Your Ochoa catheter was flushed and appears to be working as it should without leakage. Please follow-up with urology. Print Language: Hebrew Disposition Disposition: Home, Self Care
--- NOTE | 2023-09-15 21:28 | ED.RN ---
DRAINED 350CC CLEAR PIERRE URINE FROM LEG BAG. REMOVED WATER FOR BALLOON 3CC NOTED, REPOSITIONED NELSON AND RETURNED 5CC NS INTO BALLOON. FLUSHED WITH 30CC NS WITHOUT DIFFICULTLY. DRAINAGE OF CLEAR YELLOW NOTED IN LEG BAG. NO LEAKING AROUND SITE NOTED.
[2023-09-15 21:30] VITALS: BP 138/79; PULSE 78; RESP 18; TEMP 36.7; O2SAT 97
--- NOTE | 2023-09-15 23:06 | ED.RN ---
REPORT CALLED TO THE [facility] NURSE.
--- NOTE | 2023-09-16 00:15 | NURSING ---
Verbal report given to transport team.
== END 2023-09-16 00:16 | disposition home or self-care (01) ==
LOC: ED 21:30
PROVIDERS: Emergency Provider Emergency Medicine; PCP Internal Medicine; Visit Provider Emergency Medicine
DX: Z96.0 Presence of urogenital implants (principal); Q05.7 Lumbar spina bifida without hydrocephalus; Z79.4 Long term (current) use of insulin; E10.9 Type 1 diabetes mellitus without complications; E78.00 Pure hypercholesterolemia, unspecified; F41.8 Other specified anxiety disorders; Z79.899 Other long term (current) drug therapy
CPT/HCPCS: 99282; A4216

== ENCOUNTER → 2024-05-21 | Outpatient (CLI) | payer MEDICARE, MEDICAID, SELFPAY ==
--- NOTE | 2024-05-21 13:08 | BI_ITS ---
PROCEDURE: SCRN MAMM (CAD)W/JORGE BILAT REASON FOR EXAM: F, Age 44 y/o , SCREENING. No family history. TECHNIQUE: Bilateral screening digital breast tomosynthesis with 2D and 3D images. Computer aided detection. COMPARISON: Prior exam(s) dating back to April 04, 2023.. FINDINGS: The breasts are almost entirely fatty. Stable 7.3 mm fat containing nodule in the upper lateral aspect of the right breast suggestive of a small lymph node. No suspicious masses, areas of developing architectural distortion, or suspicious calcifications. Stable examination. BI/SCRN MAMM (CAD)W/JORGE BILAT IMPRESSION: BI-RADS 2: BENIGN. RECOMMEND ANNUAL MAMMOGRAPHIC SCREENING. Follow-up code: Routine Follow-up The patient will be notified of the results by letter. Reading Location: [id number]
== END | disposition home or self-care (01) ==
LOC: OPBI 13:07
PROVIDERS: PCP Internal Medicine; Referring Provider Nurse Practitioner Family; Visit Provider Nurse Practitioner Family
DX: Z12.31 Encounter for screening mammogram for malignant neoplasm of breast (principal)
CPT/HCPCS: 77063; 77067